=== PATIENT | male | born 1935 | race Caucasian/White ===

== ENCOUNTER 2018-07-03 02:07 | Observation (INO) | payer OTHER, MEDICARE ==
--- NOTE | 2018-07-03 03:12 | ED ---
General Adult HPI - General Chief complaint: Urogenital Stated complaint: UTI Time Seen by Provider: 07/03/18 02:20 Source: family, EMS Mode of arrival: EMS Limitations: altered mental status (There appears to be some underlying dementia or delirium.) - History of Present Illness Initial comments: This patient is an 82-year-old man transferred here from [facility]. The patient had been sent there from the halfway to check for urinary tract infection. The patient had been admitted to the hospital oxygen 10 days previously for urinary tract infection, treated and then sent home to continue course of oral medication. Over the past 24 hours he had been not acting his appropriate self. He has been somewhat confused and sleeping more. He was transferred to [facility] evaluated patient's family requested admitted to [facility]. When I interview the patient, he is not having any complaints. He does recognize that he is in the hospital, but cannot state the exact date. Onset/Timin -: days(s) Improves with: none Worsens with: none Associated Symptoms: denies other symptoms Treatments Prior to Arrival: other (Rocephin.) - Related Data Allergies Allergy/AdvReac Type Severity Reaction Status Date / Time ciprofloxacin Allergy Rash/Hives Verified 07/03/18 02:35 Penicillins Allergy Nausea & Verified 07/03/18 02:35 Vomiting Sulfa (Sulfonamide Allergy Rash/Hives Verified 07/03/18 02:35 Antibiotics) Review of Systems ROS Statement: Those systems with pertinent positive or pertinent negative responses have been documented in the HPI. ROS Other: All systems not noted in ROS Statement are negative. 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 Absent: respiratory distress, wheezes, rales, rhonchi, stridor Cardiovascular Exam: Present: regular rate, normal rhythm, normal heart sounds. Absent: systolic murmur, diastolic murmur, rubs, gallop GI/Abdominal exam: Present: soft. Absent: distended, tenderness, guarding, rebound Extremities exam: Present: normal inspection, normal capillary refill Back exam: Present: other (Contractures) Neurological exam: Present: alert, CN II-XII intact. Absent: oriented X3 ( Oriented to person and place.) Skin exam: Present: warm, dry, intact, normal color. Absent: rash Course Vital Signs 07/03/18 02:29 Temperature 97.3 F L Pulse Rate 89 Respiratory 16 Rate Blood Pressure 140/95 O2 Sat by Pulse 96 Oximetry Medical Decision Making - Medical Decision Making Patient is an 82-year-old man who does have indwelling Wilcox catheter for approximately 15 years since suffering neck injury with paraplegia. He reportedly has urinary tract infection not responding to outpatient treatment. He did receive dose of Rocephin at the transferring hospital, though this is listed on his list of ALLERGIES she has not had an apparent reaction. Patient is without complications here and will be admitted to continued IV therapy. Disposition Clinical Impression: Urinary tract infection Disposition: ADMITTED IP TO THIS HOSP Condition: Fair Referrals: Ernst Loo MD [Primary Care Provider] - 1-2 days
[2018-07-03] MEDS ORDERED: diphenhydrAMINE 50 MG/ML 1 ML VIAL IVP PRN (03:54)
[2018-07-03 04:05] LABS: Basophils % (A) 0 %; Eosinophils # (A) 0.1 k/uL (0-0.7); Eosinophils % (A) 2 %; HCT 40.7 % (39.0-53.0); HGB 13.4 gm/dL (13.0-17.5); Lymphocytes # (A) 1.2 k/uL (1.0-4.8); Lymphocytes % (A) 22 %; MCH 32.4 pg (25.0-35.0); MCHC 32.8 g/dL (31.0-37.0); MCV 98.8 fL (80.0-100.0); Macrocytosis Slight; Mean Platelet Volume 7.7; Monocytes # (A) 0.4 k/uL (0-1.0); Monocytes % (A) 8 %; Neutrophils # (A) 3.5 k/uL (1.3-7.7); Neutrophils % (A) 67 %; RBC 4.12 m/uL (4.30-5.90); RDW 15.4 % (11.5-15.5); WBC 5.3 k/uL (3.8-10.6)
[2018-07-03 04:28] LABS: Anion Gap 9 mmol/L; Blood Urea Nitrogen 20 mg/dL (9-20); Calcium 9.3 mg/dL (8.4-10.2); Carbon Dioxide 23 mmol/L (22-30); Chloride 103 mmol/L (98-107); Glucose 63 mg/dL (74-99); Potassium 4.1 mmol/L (3.5-5.1); Sodium 135 mmol/L (137-145)
[2018-07-03 04:37] LABS: Platelet Count 98 k/uL (150-450)
[2018-07-03] MEDS ORDERED: NALOXONE 0.4 MG/ML 1 ML VIAL IV PRN (04:49)
[2018-07-03] MEDS ORDERED: ONDANSETRON 4 MG/2 ML VIAL IVP PRN (04:49)
[2018-07-03] MEDS: SODIUM CHLORIDE 0.9% 1,000 ML IV SCH (05:25)
[2018-07-03 06:46] LABS: Appearance,Urine Cloudy (Clear); Bacteria,Urine Few /hpf; Bilirubin,Urine Negative (Negative); Blood,Urine Small (Negative); Color,Urine Yellow; Glucose,Urine (UA) Negative (Negative); Ketones,Urine 2+ (Negative); Leukocyte Esterase,Urine Large (Negative); Mucus,Urine Few /hpf; Nitrite,Urine Positive (Negative); Protein,Urine 1+ (Negative); RBC,Urine 6 /hpf (0-5); Specific Gravity,Urine 1.016 (1.001-1.035); Urobilinogen,Urine <2.0 mg/dL (<2.0)
[2018-07-03 07:09] VITALS: BMI 25.0
[2018-07-03] MEDS ORDERED: MAGNESIUM HYDROXIDE 2,400 MG/10 ML CUP PO PRN (12:00)
[2018-07-03] MEDS ORDERED: ARTIFICIAL TEARS-HYPROMELLOSE DROPS 15 ML BTL BOTH EYES PRN (12:00)
[2018-07-03] MEDS ORDERED: diphenhydrAMINE 25 MG CAP PO PRN (12:00)
[2018-07-03] MEDS ORDERED: NA PHOS,M-B/NA PHOS,DI-BA 133 ML ENEMA RECTAL PRN (12:00)
[2018-07-03] MEDS ORDERED: guaiFENesin SYRUP 100MG/5ML 200 MG/10 ML CUP PO PRN (12:00)
[2018-07-03] MEDS ORDERED: LOPERAMIDE 2 MG CAP PO PRN (12:00)
[2018-07-03] MEDS ORDERED: BISACODYL 10 MG SUPP RECTAL PRN (12:00)
[2018-07-03] MEDS ORDERED: ACETAMINOPHEN TAB 325 MG TAB PO PRN (12:00)
[2018-07-03] MEDS ORDERED: CALCIUM CARBONATE 500 MG CHEWABLE PO PRN (12:00)
--- NOTE | 2018-07-03 12:32 | P.HPIM ---
History of Present Illness This is a pleasant 82 years old male with past medical history of hypertension, history of polycystic kidney disease and kidney stone, spinal fusion, quadriplegia, indwelling catheter, peripheral neuropathy, nonfunctioning right kidney, and couple of DVT as per staff when they called and his been on warfarin he was transferred from [facility] for suspected urinary tract infection. Urine analysis was checked in the hospital today and showing large leukocyte esterase with WBC more than 182. Patient was already started on ceftriaxone. Urine culture has been sent and the result is still pending reapplied shows no leukocytosis and creatinine within normal limits. His suprapubic catheter has been change in the emergency room. Also patient has cough with some brownish phlegm little bit tachypneic and he has 4 head headache. However patient is alert awake oriented 3 with little confusion, he thought that he is still IN [facility] and he could not verify the date but he knows it is still June 2018 Review of Systems CONSTITUTIONAL: No fever, no malaise, no fatigue. HEENT: No recent visual problems or hearing problems. Denied any sore throat. CARDIOVASCULAR: No orthopnea, PND, no palpitations, no syncope. PULMONARY: No shortness of breath, no cough, no hemoptysis. GASTROINTESTINAL: No diarrhea, no nausea, no vomiting, no abdominal pain. Normoactive bowel sounds. NEUROLOGICAL: No headaches, no weakness, no numbness. HEMATOLOGICAL: Denies any bleeding or petechiae. GENITOURINARY: Denies any burning micturition, frequency, or urgency. MUSCULOSKELETAL/RHEUMATOLOGICAL: Denies any joint pain, swelling, or any muscle pain. ENDOCRINE: Denies any polyuria or polydipsia. 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 , functional use of right hand History of Any Multi-Drug Resistant Organisms: None Reported Past Surgical History: Orthopedic Surgery Additional Past Surgical History / Comment(s): placement of suprapubic catheter r/t accident 2002, has internal pump with baclofen in abdomen Past Anesthesia/Blood Transfusion Reactions: No Reported Reaction Past Psychological History: No Psychological Hx Reported Smoking Status: Never smoker Past Alcohol Use History: None Reported Past Drug Use History: None Reported - Past Family History Mother History Unknown: Yes Additional Family Medical History / Comment(s): Mother at age 20 of sepsis Medications and Allergies Home Medications Medication Instructions Recorded Confirmed Type Acetaminophen Tab [Tylenol Tab] 650 mg PO Q4H PRN 07/03/18 07/03/18 History Artificial Tears-Hypromellose 1 drops BOTH EYES TID PRN 07/03/18 07/03/18 History [Artificial Tear Drops] Bisacodyl [Dulcolax] 10 mg RECTAL DAILY PRN 07/03/18 07/03/18 History Calcium Carbonate [Tums] 1,000 mg PO QID PRN 07/03/18 07/03/18 History Cholecalciferol [Vitamin D3] 400 unit PO DAILY 07/03/18 07/03/18 History Cranberry 425mg 425 mg PO BID 07/03/18 07/03/18 History Cyanocobalamin (Vitamin B-12) 1,000 mcg PO DAILY 07/03/18 07/03/18 History [Vitamin B-12] Loperamide [Imodium] 2 mg PO QID PRN 07/03/18 07/03/18 History Loratadine [Claritin] 10 mg PO DAILY 07/03/18 07/03/18 History Magnesium Hydroxide [Milk of 2,400 mg PO DAILY PRN 07/03/18 07/03/18 History Magnesia] Metoprolol Tartrate [Lopressor] 25 mg PO BID 07/03/18 07/03/18 History Multivitamins, Thera [Multivitamin 1 tab PO DAILY 07/03/18 07/03/18 History (formulary)] Na Phos,M-B/Na Phos,Di-Ba [Fleet 133 ml RECTAL DAILY PRN 07/03/18 07/03/18 History Adult] Warfarin [Coumadin] 1 mg PO DAILY 07/03/18 07/03/18 History diphenhydrAMINE [Benadryl] 25 mg PO Q6H PRN 07/03/18 07/03/18 History guaiFENesin SYRUP 100MG/5ML 200 mg PO DIRECTED PRN 07/03/18 07/03/18 History [Robitussin] Allergies Allergy/AdvReac Type Severity Reaction Status Date / Time Cephalosporins AdvReac Unknown Verified 07/03/18 08:17 ciprofloxacin AdvReac Rash/Hives Verified 07/03/18 08:17 NSAIDS (Non-Steroidal AdvReac Unknown Verified 07/03/18 08:17 Anti-Inflamma Penicillins AdvReac Nausea & Verified 07/03/18 08:17 Vomiting Quinolones AdvReac Unknown Verified 07/03/18 08:17 Sulfa (Sulfonamide AdvReac Rash/Hives Verified 07/03/18 08:17 Antibiotics) Physical Exam Vitals: Vital Signs Temp Pulse Pulse Resp BP BP Pulse Ox 07/03/18 12:12 97.7 F 106 H 16 123/82 96 07/03/18 06:57 98 F 73 17 112/58 95 07/03/18 05:32 97.8 F 07/03/18 05:00 93 16 125/78 94 L 07/03/18 04:20 91 18 123/77 94 L 07/03/18 04:00 89 129/80 95 07/03/18 03:05 97.3 F L 98 16 115/76 95 07/03/18 03:00 90 140/86 100 07/03/18 02:29 97.3 F L 89 16 140/95 96 07/03/18 02:11 95 Intake and Output 07/02/18 07/03/18 07/03/18 22:59 06:59 14:59 Other: Voiding Method Indwelling Catheter Indwelling Catheter Weight 72.575 kg 72.57 kg GENERAL: The patient is alert and oriented x3, not in any acute distress. Well developed, well nourished. HEENT: Pupils are round and equally reacting to light. EOMI. No scleral icterus. No conjunctival pallor. Normocephalic, atraumatic. No pharyngeal erythema. No thyromegaly. CARDIOVASCULAR: S1 and S2 present. No murmurs, rubs, or gallops. PULMONARY: Chest is clear to auscultation, no wheezing or crackles. ABDOMEN: Soft, nontender, nondistended, normoactive bowel sounds. No palpable organomegaly. MUSCULOSKELETAL: No joint swelling or deformity. EXTREMITIES: No cyanosis, clubbing, or pedal edema. NEUROLOGICAL: Gross neurological examination did not reveal any focal deficits. SKIN: No rashes. Results CBC & Chem 7: 07/03/18 03:46 07/03/18 03:46 Labs: Abnormal Lab Results - Last 24 Hours (Table) 12/29/18 12/29/18 12/29/18 Range/Units 03:46 03:46 06:00 RBC 4.12 L (4.30-5.90) m/uL Plt Count 98 L (150-450) k/uL Sodium 135 L (137-145) mmol/L Glucose 63 L (74-99) mg/dL Urine Protein 1+ H (Negative) Urine Ketones 2+ H (Negative) Urine Blood Small H (Negative) Ur Leukocyte Esterase Large H (Negative) Urine RBC 6 H (0-5) /hpf Urine WBC >182 H (0-5) /hpf Urine WBC Clumps Many H (None) /hpf Urine Bacteria Few H (None) /hpf Urine Mucus Few H (None) /hpf Microbiology - Last 24 Hours (Table) 07/03/18 06:00 Urine Culture - Preliminary Urine,Voided Thrombosis Risk Factor Assmnt - Choose All That Apply Each Factor Represents 1 point: Medical pt on bed rest Each Risk Factor Represents 2 Points: Patient confined to bed Each Risk Factor Represents 3 Points: Age 75 years or older, History of DVT/PE Other congenital or acquired thrombophilia - If yes, enter type in comment: No Thrombosis Risk Factor Assessment Total Risk Factor Score: 9 Thrombosis Risk Factor Assessment Level: High Risk Assessment and Plan Assessment: Urinary tract infection, associated with Wilcox catheter present on admission History of Suprapubic catheter, for history of coronary retention Frontal headache, CT of the head is ordered Little dyspnea with coughing, we'll check with chest x-ray History of essential hypertension history of polycystic kidney disease and kidney stone, Quadriplegia History of peripheral neuropathy History of nonfunctioning right kidney History of at least couple of DVT as per staff when they called, patient is on warfarin on admission Plan: This is a pleasant 82 years old male, who presents with metabolic encephalopathy mostly secondary to UTI. Continue with antibiotics, follow-up culture results. Upper pubic catheter has been changed. CT of the head and chest x-ray ordered. Labs and medication were reviewed.. Continue same treatment. Continue with symptomatic treatment. Resume home medication. Monitor lytes and vitals. DVT and GI prophylaxis. Further recommendations of the clinical course of the patient DVT prophylaxis: Subcutaneous heparin GI Prophylaxis: Pepcid PT/OT: Pending Prognosis is guarded
[2018-07-03 12:43] LABS: INR 4.5 (<1.2); Prothrombin Time 43.4 sec (9.0-12.0)
--- NOTE | 2018-07-03 14:21 | XR ---
EXAMINATION TYPE: XR chest 1V DATE OF EXAM: 07/03/2018 COMPARISON: NONE HISTORY: Short of breath. Lesion. TECHNIQUE: Single frontal view of the chest is obtained. FINDINGS: There is for aspiration. There is no heart failure. Thoracic aorta is atheromatous. There is no pulmonary consolidation. Bony thorax appears intact. IMPRESSION: Subsegmental atelectasis at the lung bases. No heart failure or pulmonary consolidation.
--- NOTE | 2018-07-03 15:23 | CT ---
EXAMINATION TYPE: CT brain wo con DATE OF EXAM: 07/03/2018 COMPARISON: None HISTORY: headache CT DLP: 1112 mGycm Automated exposure control for dose reduction was used. FINDINGS: There is cerebral cortical atrophy. There is no mass effect nor midline shift. There is no sign of in tracranial hemorrhage. There is aneurysmal dilation of the intracranial internal carotid arteries joshua t measure up to 7 mm. The calvarium is intact. There is no evidence of cortical infarct. 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 NO ACUTE INTRACRANIAL ABNORMALITY. CEREBRAL ATRO PHY.
[2018-07-03] MEDS: IPRATROPIUM-ALBUTEROL 3 ML NEB INHALATION SCH ×3 (15:53→23:54)
[2018-07-03] MEDS ORDERED: WARFARIN 1 MG TAB PO SCH (18:00)
[2018-07-03] MEDS: METOPROLOL TARTRATE 25 MG TAB PO SCH (21:31)
[2018-07-04] MEDS: IPRATROPIUM-ALBUTEROL 3 ML NEB INHALATION SCH ×5 (04:01→20:24)
[2018-07-04] MEDS: SODIUM CHLORIDE 0.9% 1,000 ML IV SCH (04:10)
[2018-07-04] MEDS: CYANOCOBALAMIN 500 MCG TAB PO SCH (07:20)
[2018-07-04] MEDS: METOPROLOL TARTRATE 25 MG TAB PO SCH ×2 (07:20→21:42)
[2018-07-04] MEDS: CHOLECALCIFEROL 400 UNIT TAB PO SCH (07:21)
[2018-07-04] MEDS: LORATADINE 10 MG TAB PO SCH (07:21)
--- NOTE | 2018-07-04 07:50 | P.PN ---
Subjective This is a pleasant 82 years old male with past medical history of hypertension, history of polycystic kidney disease and kidney stone, spinal fusion, quadriplegia, indwelling catheter, peripheral neuropathy, nonfunctioning right kidney, and couple of DVT as per staff when they called and his been on warfarin he was transferred from [facility] for suspected urinary tract infection. Urine analysis was checked in the hospital today and showing large leukocyte esterase with WBC more than 182. Patient was already started on ceftriaxone. Urine culture has been sent and the result is still pending reapplied shows no leukocytosis and creatinine within normal limits. His suprapubic catheter has been change in the emergency room. Also patient has cough with some brownish phlegm little bit tachypneic and he has 4 head headache. However patient is alert awake oriented 3 with little confusion, he thought that he is still IN [facility] and he could not verify the date but he knows it is still June 2018 07/04/2018 Patient remains a little bit confused, but he is, agitated. No chest pain or dyspnea or abdominal pain. Tolerating diet well. There was suspicion of some penile discharge however during my examination of the area looks it dries with no discharge from the penis. The suprapubic of his looks intact and Wilcox is in place. Vitas looks stable with no more fever. INR was high yesterday or 0.5 , today left still pending. Coumadin is on hold. Urine culture is pending Objective - Vital Signs Vital signs: Vital Signs Temp 98.2 F 07/04/18 07:18 Pulse 105 H 07/04/18 07:18 Resp 16 07/04/18 07:18 BP 150/93 07/04/18 07:18 Pulse Ox 97 07/04/18 07:18 Intake & Output 07/03/18 07/04/18 07/04/18 18:59 06:59 18:59 Intake Total 920 490 Output Total 480 950 Balance 440 -460 Weight 72.57 kg Intake: Intake, IV Titration 240 250 Amount Sodium Chloride 0.9% 1, 240 200 000 ml @ 20 mls/hr IV . Q24H MERRY Rx#:[id number] cefTRIAXone 1,000 mg In 50 Sodium Chloride 0.9% 50 ml @ 100 mls/hr IVPB Q24H MERRY Rx#:[id number] Oral 680 240 Output: Urine 480 950 Other: Voiding Method Indwelling Catheter Indwelling Catheter # Voids 1 - Exam GENERAL: The patient is alert and oriented x1-2, not in any acute distress. Well developed, well nourished. HEENT: Pupils are round and equally reacting to light. EOMI. No scleral icterus. No conjunctival pallor. Normocephalic, atraumatic. No pharyngeal erythema. No thyromegaly. CARDIOVASCULAR: S1 and S2 present. No murmurs, rubs, or gallops. PULMONARY: Chest is clear to auscultation, no wheezing or crackles. -ABDOMEN: Soft, nontender, nondistended, normoactive bowel sounds. No palpable organomegaly. Suprapubic catheter is in place, orifice is intact with no surrounding cellulitis. A and penile exam is unremarkable, no purulent discharge MUSCULOSKELETAL: No joint swelling or deformity. EXTREMITIES: No cyanosis, clubbing, or pedal edema. NEUROLOGICAL: Gross neurological examination did not reveal any focal deficits. SKIN: No rashes. - Labs CBC & Chem 7: 07/03/18 03:46 07/03/18 03:46 Labs: Abnormal Lab Results - Last 24 Hours (Table) 07/03/18 Range/Units 12:10 PT 43.4 H (9.0-12.0) sec INR 4.5 H (<1.2) Microbiology - Last 24 Hours (Table) 07/03/18 06:00 Urine Culture - Preliminary Urine,Voided Assessment and Plan Assessment: Urinary tract infection, associated with Wilcox catheter present on admission History of Suprapubic catheter, for history of coronary retention Frontal headache, CT of the head is ordered Little dyspnea with coughing, we'll check with chest x-ray History of essential hypertension history of polycystic kidney disease and kidney stone, Quadriplegia History of peripheral neuropathy History of nonfunctioning right kidney History of at least couple of DVT as per staff when they called, patient is on warfarin on admission Plan: This is a pleasant 82 years old male, who presents with metabolic encephalopathy mostly secondary to UTI. Continue with antibiotics, follow-up culture results. Upper pubic catheter has been changed. CT of the head and chest x-ray ordered. Labs and medication were reviewed.. Continue same treatment. Continue with symptomatic treatment. Resume home medication. Monitor lytes and vitals. DVT and GI prophylaxis. Further recommendations of the clinical course of the patient DVT prophylaxis: Subcutaneous heparin GI Prophylaxis: Pepcid PT/OT: Pending Prognosis is guarded
[2018-07-04 08:21] LABS: INR 3.1 (<1.2); Prothrombin Time 29.7 sec (9.0-12.0)
[2018-07-04 08:30] LABS: Basophils % (A) 0 %; Eosinophils % (A) 1 %; HCT 37.7 % (39.0-53.0); HGB 12.2 gm/dL (13.0-17.5); Lymphocytes # (A) 1.2 k/uL (1.0-4.8); Lymphocytes % (A) 25 %; MCH 31.9 pg (25.0-35.0); MCHC 32.3 g/dL (31.0-37.0); MCV 98.9 fL (80.0-100.0); Macrocytosis Slight; Mean Platelet Volume 7.4; Monocytes # (A) 0.4 k/uL (0-1.0); Monocytes % (A) 8 %; Neutrophils # (A) 3.3 k/uL (1.3-7.7); Neutrophils % (A) 65 %; Platelet Count 122 k/uL (150-450); RBC 3.81 m/uL (4.30-5.90); RDW 15.4 % (11.5-15.5)
[2018-07-04 09:23] LABS: Anion Gap 7 mmol/L; Blood Urea Nitrogen 19 mg/dL (9-20); Calcium 9.2 mg/dL (8.4-10.2); Carbon Dioxide 27 mmol/L (22-30); Chloride 104 mmol/L (98-107); Glucose 82 mg/dL (74-99); Potassium 4.1 mmol/L (3.5-5.1); Sodium 138 mmol/L (137-145)
--- NOTE | 2018-07-04 10:15 | US ---
EXAMINATION TYPE: US carotid duplex BILAT DATE OF EXAM: 07/04/2018 COMPARISON: CT CLINICAL HISTORY: aneurysm in ct of head . Aneurysm seen on CT Pt with very short neck and continuous swallowing during exam, limited views EXAM MEASUREMENTS: RIGHT: Peak Systolic Velocity (PSV) cm/sec ----- Right CCA: 107.0 ----- Right ICA: 63.2 ----- Right ECA: 113.5 ICA/CCA ratio: 0.6 RIGHT: End Diastole cm/sec ----- Right CCA: 21.5 ----- Right ICA: 21.8 ----- Right ECA: 25.4 LEFT: Peak Systolic Velocity (PSV) cm/sec ----- Left CCA: 87.1 ----- Left ICA: 74.5 ----- Left ECA: 94.3 ICA/CCA ratio: 0.9 LEFT: End Diastole cm/sec ----- Left CCA: 28.2 ----- Left ICA: 17.2 ----- Left ECA: 16.1 VERTEBRALS (direction of flow): Right Vertebral: Unable to visualize Left Vertebral: Unable to visualize Rhythm: Normal No significant stenosis seen, unable to visualize aneurysm as seen on CT IMPRESSION: No hemodynamically significant stenosis identified. Criteria for Assigning % of Stenosis / Diameter reduction (Estimation based on the indirect measurements of the internal carotid artery velocities (ICA PSV). 1. Normal (no stenosis)=ICA PSV < 125 cm/s: ratio < 2.0: ICA EDV<40 cm/s. 2. Less than 50% stenosis=ICA PSV < 125 cm/s: ratio < 2.0: ICA EDV<40 cm/s. 3. 50 to 69% stenosis=ICA PSV of 125 to 230 cm/s: ration 2.0 ? 4.0: ICA EDV 40-100 cm/s. 4. Greater than 70% stenosis to near occlusion= ICA PSV > 230 cm/s: ratio > 4.0: ICA EDV > 100 cm/s. 5. Near occlusion= ICA PSV velocities may be low or undetectable: variable ratio and ICA EDV. 6. Total occlusion=unable to detect flow.
[2018-07-04] MEDS: MULTIVITAMINS, THERA 1 EACH TAB PO SCH (12:07)
[2018-07-05] MEDS: IPRATROPIUM-ALBUTEROL 3 ML NEB INHALATION SCH ×5 (01:22→16:36)
[2018-07-05] MEDS: SODIUM CHLORIDE 0.9% 1,000 ML IV SCH (04:29)
[2018-07-05 07:38] LABS: INR 1.9 (<1.2); Prothrombin Time 18.4 sec (9.0-12.0)
[2018-07-05] MEDS: CYANOCOBALAMIN 500 MCG TAB PO SCH (07:49)
[2018-07-05] MEDS: CHOLECALCIFEROL 400 UNIT TAB PO SCH (07:50)
[2018-07-05] MEDS: LORATADINE 10 MG TAB PO SCH (07:50)
[2018-07-05] MEDS: METOPROLOL TARTRATE 25 MG TAB PO SCH (07:51)
[2018-07-05 12:25] VITALS: BP 145/73; PULSE 92; RESP 16; TEMP 97.3
[2018-07-05] MEDS: MULTIVITAMINS, THERA 1 EACH TAB PO SCH (12:28)
--- NOTE | 2018-07-12 22:41 | P.DS ---
Providers Date of admission: 07/03/18 04:49 Expected date of discharge: 07/05/18 Attending physician: Frank Roblero Primary care physician: Ernst [facility] Course: Discharge diagnosis Urinary tract infection, associated with Wilcox catheter present on admission. Urine culture is still pending. Clinically improved. History of Suprapubic catheter, for history of urinary retention Frontal headache, CT of the head was done. Negative for any acute process. dyspnea with coughing, chest x-ray showed subsegmental atelectasis. History of essential hypertension history of polycystic kidney disease and kidney stone, Quadriplegia History of peripheral neuropathy History of nonfunctioning right kidney History of at least couple of DVT as per staff when they called, patient is on warfarin on admission Hospital course This is a pleasant 82 years old male with past medical history of hypertension, history of polycystic kidney disease and kidney stone, spinal fusion, quadriplegia, indwelling catheter, peripheral neuropathy, nonfunctioning right kidney, and couple of DVT as per staff when they called and his been on warfarin he was transferred from [facility] for suspected urinary tract infection. Urine analysis was checked in the hospital today and showing large leukocyte esterase with WBC more than 182. Patient was already started on ceftriaxone. Urine culture has been sent and the result is still pending reapplied shows no leukocytosis and creatinine within normal limits. His suprapubic catheter has been change in the emergency room. Also patient has cough with some brownish phlegm little bit tachypneic and he has 4 head headache. However patient is alert awake oriented 3 with little confusion, he thought that he is still IN [facility] and he could not verify the date but he knows it is still June 2018 07/04/2018 Patient remains a little bit confused, but he is, agitated. No chest pain or dyspnea or abdominal pain. Tolerating diet well. There was suspicion of some penile discharge however during my examination of the area looks it dries with no discharge from the penis. The suprapubic of his looks intact and Wilcox is in place. Vitas looks stable with no more fever. INR was high yesterday or 0.5 , today left still pending. Coumadin is on hold. Urine culture is pending 07/05/2018 Patient says that he is feeling much better now. Denied any complaints of abdominal pain. No nausea vomiting or diarrhea. Patient does have suprapubic catheter. Urine culture is pending at this time. No fever no chills. Patient was advised to stay in the hospital until final urine culture report. Patient still wants to be discharged home today. Patient was advised to follow with primary care physician for final urine culture report and further antibiotic titration. Recommended to follow-up with urology clinic for suprapubic catheter exchange. Patient is ALLERGIC to multiple antibiotics. Patient will be discharged home on Ceftin at this time, to be followed with primary care physician and follow-up final culture reports with PCP. Patient verbalized understanding of further plans regarding antibiotics. Physical examination GENERAL: The patient is alert and oriented x1-2, not in any acute distress. Well developed, well nourished. HEENT: Pupils are round and equally reacting to light. EOMI. No scleral icterus. No conjunctival pallor. Normocephalic, atraumatic. No pharyngeal erythema. No thyromegaly. CARDIOVASCULAR: S1 and S2 present. No murmurs, rubs, or gallops. PULMONARY: Chest is clear to auscultation, no wheezing or crackles. -ABDOMEN: Soft, nontender, nondistended, normoactive bowel sounds. No palpable organomegaly. Suprapubic catheter is in place, orifice is intact with no surrounding cellulitis. A and penile exam is unremarkable, no purulent discharge MUSCULOSKELETAL: No joint swelling or deformity. EXTREMITIES: No cyanosis, clubbing, or pedal edema. NEUROLOGICAL: Gross neurological examination did not reveal any focal deficits. SKIN: No rashes. Discharge vitals reviewed. Total time taken greater than 35 minutes including 18 minutes for counseling and coordination of care. Patient Condition at Discharge: Fair Plan - Discharge Summary Discharge Rx Participant: No New Discharge Prescriptions: New Cefuroxime Axetil [Ceftin] 500 mg PO BID 7 Days #14 tab Continue Acetaminophen Tab [Tylenol] 650 mg PO Q4H PRN PRN Reason: Pain Or Fever > 100.5 guaiFENesin SYRUP 100MG/5ML [Robitussin] 200 mg PO DIRECTED PRN PRN Reason: Cough Loperamide [Imodium] 2 mg PO QID PRN PRN Reason: Loose Stool diphenhydrAMINE [Benadryl] 25 mg PO Q6H PRN PRN Reason: Itching Na Phos,M-B/Na Phos,Di-Ba [Fleet Adult] 133 ml RECTAL DAILY PRN PRN Reason: Constipation Calcium Carbonate [Tums] 1,000 mg PO QID PRN PRN Reason: Heartburn Bisacodyl [Dulcolax] 10 mg RECTAL DAILY PRN PRN Reason: Constipation Warfarin [Coumadin] 1 mg PO DAILY Cyanocobalamin (Vitamin B-12) [Vitamin B-12] 1,000 mcg PO DAILY Cholecalciferol [Vitamin D3] 400 unit PO DAILY Multivitamins, Thera [Multivitamin (formulary)] 1 tab PO DAILY Metoprolol Tartrate [Lopressor] 12.5 mg PO BID Loratadine [Claritin] 10 mg PO DAILY Magnesium Hydroxide [Milk of Magnesia] 2,400 mg PO DAILY PRN PRN Reason: Constipation Cranberry 425mg 425 mg PO BID Discharge Medication List Acetaminophen Tab [Tylenol] 650 mg PO Q4H PRN 07/03/18 [History] Bisacodyl [Dulcolax] 10 mg RECTAL DAILY PRN 07/03/18 [History] Calcium Carbonate [Tums] 1,000 mg PO QID PRN 07/03/18 [History] Cholecalciferol [Vitamin D3] 400 unit PO DAILY 07/03/18 [History] Cranberry 425mg 425 mg PO BID 07/03/18 [History] Cyanocobalamin (Vitamin B-12) [Vitamin B-12] 1,000 mcg PO DAILY 07/03/18 [ History] Loperamide [Imodium] 2 mg PO QID PRN 07/03/18 [History] Loratadine [Claritin] 10 mg PO DAILY 07/03/18 [History] Magnesium Hydroxide [Milk of Magnesia] 2,400 mg PO DAILY PRN 07/03/18 [History] Metoprolol Tartrate [Lopressor] 12.5 mg PO BID 07/03/18 [History] Multivitamins, Thera [Multivitamin (formulary)] 1 tab PO DAILY 07/03/18 [History ] Na Phos,M-B/Na Phos,Di-Ba [Fleet Adult] 133 ml RECTAL DAILY PRN 07/03/18 [ History] Warfarin [Coumadin] 1 mg PO DAILY 07/03/18 [History] diphenhydrAMINE [Benadryl] 25 mg PO Q6H PRN 07/03/18 [History] guaiFENesin SYRUP 100MG/5ML [Robitussin] 200 mg PO DIRECTED PRN 07/03/18 [ History] Cefuroxime Axetil [Ceftin] 500 mg PO BID 7 Days #14 tab 07/05/18 [Rx] Follow up Appointment(s)/Referral(s): Ernst Loo MD [Primary Care Provider] - 3 Days (PLEASE CALL FOR APPOINTMENT, OFFICE CURRENTLY CLOSED.) Patient Instructions/Handouts: Urinary Tract Infection in Men (DC), How to Care for Your Suprapubic Catheter (DC) Activity/Diet/Wound Care/Special Instructions: [facility] - [address] [place] Diet: dysphagia Level 2 Discharge Disposition: TRANSFER TO SNF/ECF
== END 2018-07-05 17:26 ==
LOC: EEVIPCON 02:07 → EC 02:07 → 3NMEDONC 04:49
PROVIDERS: ADMIT Internal Medicine; ATTEND Internal Medicine
DX: N39.0 Urinary tract infection, site not specified (principal); R51 Headache; J98.11 Atelectasis; R06.82 Tachypnea, not elsewhere classified; T83.511A Infection and inflammatory reaction due to indwelling urethral catheter, initial encounter; I10 Essential (primary) hypertension; Z87.442 Personal history of urinary calculi; Q61.3 Polycystic kidney, unspecified; G82.50 Quadriplegia, unspecified; G62.9 Polyneuropathy, unspecified; N28.9 Disorder of kidney and ureter, unspecified; Z88.2 Allergy status to sulfonamides; Z88.0 Allergy status to penicillin; Z88.1 Allergy status to other antibiotic agents; Z86.718 Personal history of other venous thrombosis and embolism; Z98.1 Arthrodesis status; Z79.01 Long term (current) use of anticoagulants; Z79.899 Other long term (current) drug therapy; Z88.8 Allergy status to other drugs, medicaments and biological substances; Z74.01 Bed confinement status; G93.41 Metabolic encephalopathy
CPT/HCPCS: 96365; 99285; 36415; 94640 ×6; 80048 ×2; 85025 ×2; 85610 ×3; 81001; 87086; 87077; 87186; 71045; 93880; 70450; G0378 ×3; J0696 ×3

== ENCOUNTER 2018-07-08 13:28 | Inpatient (IN) | payer MEDICARE ==
[2018-07-08] MEDS ORDERED: LEVOFLOXACIN 750MG-D5W PMX 750 MG in DEXTROSE/WATER 1 150ML.BAG IVPB STA (13:52)
--- NOTE | 2018-07-08 13:56 | ED ---
General Adult HPI - General Chief complaint: Recheck/Abnormal Lab/Rx Stated complaint: Poss uti Source: EMS Mode of arrival: EMS Limitations: no limitations - Related Data Home Medications Medication Instructions Recorded Confirmed Acetaminophen Tab [Tylenol] 650 mg PO Q4H PRN 07/03/18 07/08/18 Bisacodyl [Dulcolax] 10 mg RECTAL DAILY PRN 07/03/18 07/08/18 Calcium Carbonate [Tums] 1,000 mg PO QID PRN 07/03/18 07/08/18 Cholecalciferol [Vitamin D3] 400 unit PO DAILY 07/03/18 07/08/18 Cranberry 425mg 425 mg PO BID 07/03/18 07/08/18 Cyanocobalamin (Vitamin B-12) 1,000 mcg PO DAILY 07/03/18 07/08/18 [Vitamin B-12] Loperamide [Imodium] 2 mg PO QID PRN 07/03/18 07/08/18 Loratadine [Claritin] 10 mg PO DAILY 07/03/18 07/08/18 Magnesium Hydroxide [Milk of 2,400 mg PO DAILY PRN 07/03/18 07/08/18 Magnesia] Metoprolol Tartrate [Lopressor] 12.5 mg PO BID 07/03/18 07/08/18 Multivitamins, Thera [Multivitamin 1 tab PO DAILY 07/03/18 07/08/18 (formulary)] Na Phos,M-B/Na Phos,Di-Ba [Fleet 133 ml RECTAL DAILY PRN 07/03/18 07/08/18 Adult] Warfarin [Coumadin] 1 mg PO DAILY 07/03/18 07/08/18 diphenhydrAMINE [Benadryl] 25 mg PO Q6H PRN 07/03/18 07/08/18 guaiFENesin SYRUP 100MG/5ML 200 mg PO DIRECTED PRN 07/03/18 07/08/18 [Robitussin] Previous Rx's Medication Instructions Recorded Cefuroxime Axetil [Ceftin] 500 mg PO BID 7 Days #14 tab 07/05/18 Allergies Allergy/AdvReac Type Severity Reaction Status Date / Time Cephalosporins AdvReac Unknown Verified 07/08/18 14:30 ciprofloxacin AdvReac Rash/Hives Verified 07/08/18 14:30 NSAIDS (Non-Steroidal AdvReac Unknown Verified 07/08/18 14:30 Anti-Inflamma Penicillins AdvReac Nausea & Verified 07/08/18 14:30 Vomiting Quinolones AdvReac Unknown Verified 07/08/18 14:30 Sulfa (Sulfonamide AdvReac Rash/Hives Verified 07/08/18 14:30 Antibiotics) Review of Systems ROS Statement: Those systems with pertinent positive or pertinent negative responses have been documented in the HPI. ROS Other: All systems not noted in ROS Statement are negative. 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 Date of last positivie culture/infection: 07/03/18 MDRO Source:: URINE Past Surgical History: Orthopedic Surgery Additional Past Surgical History / Comment(s): placement of suprapubic catheter r/t accident 2002, has internal pump with baclofen in abdomen Past Anesthesia/Blood Transfusion Reactions: No Reported Reaction Past Psychological History: No Psychological Hx Reported Smoking Status: Never smoker Past Alcohol Use History: None Reported Past Drug Use History: None Reported - Past Family History Mother History Unknown: Yes Additional Family Medical History / Comment(s): Mother at age 20 of sepsis General Exam Limitations: no limitations Course Vital Signs 07/08/18 07/08/18 13:38 15:39 Pulse Rate 61 60 Respiratory 16 16 Rate Blood Pressure 144/90 110/78 O2 Sat by Pulse 99 96 Oximetry Medical Decision Making - Medical Decision Making Dictation was produced using [employer] dictation software. please excuse any grammatical, word or spelling errors. Chief Complaint: 82-year-old male with past medical history of paraplegia secondary to spinal cord injury presents with chief complaint cloudy urine and mental status changes. History of Present Illness: Patient is 82-year-old male transferred from assisted living facility for cloudy urine and mental status changes. Patient was just discharged 3 days ago for the same complaint. Patient has a chronic indwelling suprapubic catheter. He had this suprapubic catheter placed approximately 15 years ago. Patient is a poor historian at this time. EMS reports that he was sent here for cloudy urine possible UTI. Chart review shows that patient was admitted to the hospital 5 days ago for UTI and mental status changes. Cardiac chart review patient has had in uneventful hospital course discharge. Patient has no complaints at this time. The ROS documented in this emergency department record has been reviewed and confirmed by me. Those systems with pertinent positive or negative responses have been documented in the HPI. All other systems are other negative and/or noncontributory. PHYSICAL EXAM: General Impression: Alert and oriented x3, not in acute distress HEENT: Normocephalic atraumatic, extra-ocular movements intact, pupils equal and reactive to light bilaterally, mucous membranes moist. Cardiovascular: Heart regular rate and rhythm, S1&S2 audible, no murmurs, rubs or gallops Chest: Lungs clear to auscultation bilaterally, no rhonchi, no wheeze, no rales Abdomen: Bowel sounds present, abdomen soft, non-tender, non-distended, no organomegaly Musculoskeletal: Pulses present and equal in all extremities, no peripheral edema Motor: Paralysis of all extremities Neurological: CN II-XII grossly intact Skin: Intact with no visualized rashes Psych: Normal affect and mood ED course: 82-year-old male presents with concerns of UTI and mental status changes. As upon arrival are within acceptable limits. Wilcox reservoir shows no cloudy characteristics of the urine. Chart review shows that patient was discharged with cefuroxime. Microbiology was reviewed. Patient has 3 infections in his urine. It appears that he has ESBL, E. coli and pseudomonas aeruginosa based on his most recent culture. There are limited medications to choose from. Flow quinolones are listed as one of his ALLERGIES when he said several years ago he had a reaction to it which was a rash. This point given that there are limited medications to use to cover all 3 bacterial organisms. We will give a dose of Levaquin. We will have patient admitted with infectious disease consultation. Patient be admitted. EKG interpretation: Ventricular rate 57 and a sinus bradycardia, MD interval 222 , care is 84, QTC 424. No MD prolongation, no QTC prolongation, no ST or T-wave changes noted. Overall, this EKG is unremarkable - Lab Data Result diagrams: 07/08/18 14:20 07/08/18 14:20 Lab Results 07/08/18 07/08/18 07/08/18 Range/Units 14:20 14:20 14:20 WBC 4.4 (3.8-10.6) k/uL RBC 3.96 L (4.30-5.90) m/uL Hgb 13.1 (13.0-17.5) gm/dL Hct 38.8 L (39.0-53.0) % MCV 98.1 (80.0-100.0) fL MCH 33.0 (25.0-35.0) pg MCHC 33.6 (31.0-37.0) g/dL RDW 15.3 (11.5-15.5) % Plt Count 105 L (150-450) k/uL Neutrophils % 71 % Lymphocytes % 15 % Monocytes % 7 % Eosinophils % 2 % Basophils % 0 % Neutrophils # 3.1 (1.3-7.7) k/uL Lymphocytes # 0.7 L (1.0-4.8) k/uL Monocytes # 0.3 (0-1.0) k/uL Eosinophils # 0.1 (0-0.7) k/uL Basophils # 0.0 (0-0.2) k/uL Macrocytosis Slight Sodium 127 L (137-145) mmol/L Potassium 5.4 H (3.5-5.1) mmol/L Chloride 96 L (98-107) mmol/L Carbon Dioxide 22 (22-30) mmol/L Anion Gap 9 mmol/L BUN 22 H (9-20) mg/dL Creatinine 0.61 L (0.66-1.25) mg/dL Est GFR (CKD-EPI)AfAm >90 (>60 ml/min/1.73 sqM) Est GFR (CKD-EPI)NonAf >90 (>60 ml/min/1.73 sqM) Glucose 79 (74-99) mg/dL Calcium 8.8 (8.4-10.2) mg/dL Urine Color Yellow Urine Appearance Cloudy (Clear) Urine pH 6.5 (5.0-8.0) Ur Specific [place] 1.006 (1.001-1.035) Urine Protein Negative (Negative) Urine Glucose (UA) Negative (Negative) Urine Ketones Negative (Negative) Urine Blood Negative (Negative) Urine Nitrite Positive (Negative) Urine Bilirubin Negative (Negative) Urine Urobilinogen <2.0 (<2.0) mg/dL Ur Leukocyte Esterase Large H (Negative) Urine RBC 1 (0-5) /hpf Urine WBC 31 H (0-5) /hpf Ur Squamous Epith Cells <1 (0-4) /hpf Urine Bacteria Rare H (None) /hpf Urine Mucus Rare H (None) /hpf Disposition Clinical Impression: Urinary tract infection Disposition: ADMITTED IP TO THIS HOSP Condition: Fair Referrals: Ernst Loo MD [Primary Care Provider] - 1-2 days Decision Time: 16:10
[2018-07-08 14:41] LABS: Basophils % (A) 0 %; Eosinophils # (A) 0.1 k/uL (0-0.7); Eosinophils % (A) 2 %; HCT 38.8 % (39.0-53.0); HGB 13.1 gm/dL (13.0-17.5); Lymphocytes # (A) 0.7 k/uL (1.0-4.8); Lymphocytes % (A) 15 %; MCHC 33.6 g/dL (31.0-37.0); MCV 98.1 fL (80.0-100.0); Macrocytosis Slight; Mean Platelet Volume 7.5; Monocytes # (A) 0.3 k/uL (0-1.0); Monocytes % (A) 7 %; Neutrophils # (A) 3.1 k/uL (1.3-7.7); Neutrophils % (A) 71 %; Platelet Count 105 k/uL (150-450); RBC 3.96 m/uL (4.30-5.90); RDW 15.3 % (11.5-15.5); WBC 4.4 k/uL (3.8-10.6)
[2018-07-08 14:51] LABS: Appearance,Urine Cloudy (Clear); Bacteria,Urine Rare /hpf; Bilirubin,Urine Negative (Negative); Blood,Urine Negative (Negative); Color,Urine Yellow; Glucose,Urine (UA) Negative (Negative); Ketones,Urine Negative (Negative); Leukocyte Esterase,Urine Large (Negative); Mucus,Urine Rare /hpf; Nitrite,Urine Positive (Negative); PH, Urine 6.5 (5.0-8.0); Protein,Urine Negative (Negative); RBC,Urine 1 /hpf (0-5); Specific Gravity,Urine 1.006 (1.001-1.035); Squamous Epithelial Cell,Urine <1 /hpf (0-4); Urobilinogen,Urine <2.0 mg/dL (<2.0); WBC,Urine 31 /hpf (0-5)
[2018-07-08 14:54] LABS: Anion Gap 9 mmol/L; Blood Urea Nitrogen 22 mg/dL (9-20); Calcium 8.8 mg/dL (8.4-10.2); Carbon Dioxide 22 mmol/L (22-30); Chloride 96 mmol/L (98-107); Glucose 79 mg/dL (74-99); Potassium 5.4 mmol/L (3.5-5.1); Sodium 127 mmol/L (137-145)
--- NOTE | 2018-07-08 15:23 | XR ---
EXAMINATION TYPE: XR chest 2V DATE OF EXAM: 07/08/2018 COMPARISON: 07/03/2018 HISTORY: Chest pain and syncope TECHNIQUE: Frontal and lateral views of the chest are obtained. FINDINGS: There are low lung volumes and persistent left basilar subsegmental atelectasis. Generaliz ed osseous demineralization is present. Prominence of the superior vena cava is similar to the prior and partially due to rotation. Biapical pleural thickening is noted, right greater than left. Exagger ated thoracic kyphosis renders evaluation of the upper and mid thoracic spine difficult, however comp ression deformity is suspected. IMPRESSION: 1. Persistent left basilar atelectasis and overall low lung volumes. 2. Suspected left mid thoracic compression deformity resulting in acute kyphosis and generalized osse ous demineralization.
[2018-07-08] MEDS ORDERED: SODIUM CHLORIDE 0.9% 1,000 ML IV STA (15:36)
[2018-07-08] MEDS ORDERED: NALOXONE 0.4 MG/ML 1 ML VIAL IV PRN (16:08)
[2018-07-08] MEDS ORDERED: diphenhydrAMINE 50 MG/ML 1 ML VIAL IVP PRN (16:49)
[2018-07-08 17:03] LABS: INR 2.3 (<1.2)
[2018-07-08] MEDS ORDERED: WARFARIN 1 MG TAB PO SCH (18:00)
[2018-07-08] MEDS ORDERED: BISACODYL 10 MG SUPP RECTAL PRN (18:08)
[2018-07-08] MEDS ORDERED: CALCIUM CARBONATE 500 MG CHEWABLE PO PRN (18:08)
[2018-07-08] MEDS ORDERED: MAGNESIUM HYDROXIDE 2,400 MG/10 ML CUP PO PRN (18:08)
[2018-07-08] MEDS ORDERED: guaiFENesin SYRUP 100MG/5ML 200 MG/10 ML CUP PO PRN (18:08)
[2018-07-08] MEDS ORDERED: ACETAMINOPHEN TAB 325 MG TAB PO PRN (18:08)
[2018-07-08] MEDS: MEROPENEM 1 GM in SODIUM CHLORIDE 0.9% 100 ML IVPB SCH (20:41)
[2018-07-08] MEDS: METOPROLOL TARTRATE 12.5 MG TAB PO SCH (20:41)
[2018-07-08] MEDS ORDERED: CRANBERRY 425 MG PO SCH (21:00)
[2018-07-08] MEDS ORDERED: LOPERAMIDE 2 MG CAP PO PRN (21:41)
[2018-07-08] MEDS ORDERED: NA PHOS,M-B/NA PHOS,DI-BA 133 ML ENEMA RECTAL PRN (21:41)
--- NOTE | 2018-07-08 22:49 | HP ---
HISTORY AND PHYSICAL DATE OF SERVICE: 07/08/2018 CHIEF COMPLAINTS: Change in mental status and UTI. HISTORY OF PRESENT ILLNESS: This 82-year-old gentleman with past medical history of multiple medical problems, being followed by Dr. Loo in the outpatient setting, was recently admitted with features of UTI. The patient also had a suprapubic catheter. The patient also had multiple other medical problems, including quadriplegia secondary to a fall and cervical spine injury, history of hypertension, history of ESBL, history of DJD, and the patient also had polycystic kidney disease history. The patient also had peripheral neuropathy. The patient was sent on antibiotics; however, the patient and family noted that the patient had change in mental status. Patient used to have some use of the left forearm, which was noted also. The patient also had diminished responsiveness compared to his baseline. The patient was taking ciprofloxacin and the culture report showed Pseudomonas aeruginosa, E coli and ESBL E coli as well. There was some leaking around the suprapubic catheter site also noted, which is also being evaluated by Urology at this time. The patient is unable to give any coherent history. Most of the history is taken from my discussion with staff and discussion in the ER as well as review of the chart at this time and discussion with the family at the bedside. PAST MEDICAL HISTORY: 1. History of hypertension. 2. History of quadriplegia. 3. History of recent UTI. HOME MEDICATIONS: 1. Coumadin 1 mg p.o. daily. 2. Magnesium hydroxide 2.4 daily. 3. Vitamin B12 1000 mcg b.i.d. 4. Vitamin D3 400 daily. 5. Tylenol 650 q.4 p.r.n. 6. Guaifenesin 200 mg p.r.n. 7. Benadryl 25 mg q.6 p.r.n. 8. Fleet daily p.r.n. 9. Imodium 2 mg q.i.d. p.r.n. 10.Tums 1000 mg q.i.d. p.r.n. 11.Multivitamins 1 p.o. daily. 12.Dulcolax 10 mg rectally daily p.r.n. 13.Lopressor 12.5 mg p.o. b.i.d. 14.Claritin 10 mg p.o. daily. 15.Cranberry 425 mg p.o. b.i.d. 16.Ceftin 500 mg p.o. b.i.d. ALLERGIES: 1. ADHESIVE. 2. CEPHALOSPORIN. 3. CIPROFLOXACIN. 4. NSAIDS. 5. PENICILLIN. 6. QUINOLONES. 7. SULFA. FAMILY HISTORY: History of sepsis in the family. SOCIAL HISTORY: No history of smoking. No history of alcohol. REVIEW OF SYSTEMS: Could not be taken because of the patient's baseline mental status. PHYSICAL EXAMINATION: Pulse is 67, blood pressure 120/70, respiration 16, temperature 94.5, pulse ox 100% on room air. HEENT: Conjunctivae normal. Oral mucosa moist. NECK: No jugular venous distention. No carotid bruit. No lymph node enlargement. CARDIOVASCULAR SYSTEM: S1, S2 muffled. RESPIRATORY SYSTEM: Breath sounds diminished at the bases. A few scattered rhonchi and crackles. ABDOMEN: Soft, non-tender. No mass palpable. LEGS: No edema. No swelling. NERVOUS SYSTEM: Higher functions as mentioned earlier. Could not be tested. Extensively significant contractures and quadriplegia present. SKIN: No ulcer, rash, bleeding. LYMPHATICS: No lymph node palpable in neck, axillae or groin. JOINTS: No active deforming arthropathy. LABS: INR 2.3, WBC 4.4, hemoglobin 13.1. Sodium 127, potassium 5.4. UA noted. ASSESSMENT: 1. Urinary tract infection with sepsis secondary to Pseudomonas aeruginosa, Escherichia coli and extended-spectrum beta-lactamase Escherichia coli. 2. Hypothermia secondary to sepsis. 3. Hyponatremia. 4. Hyperkalemia, mild. 5. Hypertension. 6. Cervical neck injury and quadriplegia. 7. Suprapubic catheter. 8. Internal pump with baclofen. 9. Polycystic kidney. 10.History of deep venous thrombosis, on Coumadin. 11.Coumadin monitoring. RECOMMENDATIONS AND DISCUSSION: In this 82-year-old gentleman who presented with multiple complex medical issues, we will monitor the patient closely, continue the current management, continue with symptomatic treatment. Otherwise at this time will initiate broad-spectrum IV antibiotics. Patient was started on Merrem. I would also recommend infectious disease evaluation and urology evaluation. Resume the home medications. Warmed IV fluids. Prognosis is guarded because of multiple complex medical issues. Further recommendations to follow. A copy of this dictation is being forwarded to Dr. Loo, who is the primary physician. MMODL / IJN: [id number] /
[2018-07-09] MEDS: MEROPENEM 1 GM in SODIUM CHLORIDE 0.9% 100 ML IVPB SCH ×3 (04:51→22:10)
[2018-07-09] MEDS: LORATADINE 10 MG TAB PO SCH (08:42)
[2018-07-09] MEDS: METOPROLOL TARTRATE 12.5 MG TAB PO SCH ×2 (08:42→22:10)
[2018-07-09 09:43] LABS: INR 3.4 (<1.2); Prothrombin Time 32.3 sec (9.0-12.0)
[2018-07-09 09:46] LABS: Basophils % (A) 1 %; Eosinophils # (A) 0.1 k/uL (0-0.7); Eosinophils % (A) 2 %; HGB 12.8 gm/dL (13.0-17.5); Lymphocytes # (A) 0.8 k/uL (1.0-4.8); Lymphocytes % (A) 22 %; MCH 32.7 pg (25.0-35.0); MCHC 32.8 g/dL (31.0-37.0); MCV 99.7 fL (80.0-100.0); Macrocytosis Slight; Mean Platelet Volume 7.4; Monocytes # (A) 0.3 k/uL (0-1.0); Monocytes % (A) 8 %; Neutrophils # (A) 2.4 k/uL (1.3-7.7); Neutrophils % (A) 64 %; Platelet Count 112 k/uL (150-450); RBC 3.91 m/uL (4.30-5.90); RDW 15.2 % (11.5-15.5); WBC 3.7 k/uL (3.8-10.6)
[2018-07-09 10:00] LABS: Anion Gap 6 mmol/L; Blood Urea Nitrogen 16 mg/dL (9-20); Calcium 8.8 mg/dL (8.4-10.2); Carbon Dioxide 23 mmol/L (22-30); Chloride 103 mmol/L (98-107); Glucose 78 mg/dL (74-99); Potassium 4.4 mmol/L (3.5-5.1); Sodium 132 mmol/L (137-145)
[2018-07-09] MEDS: CYANOCOBALAMIN 500 MCG TAB PO SCH (12:39)
[2018-07-09] MEDS: MULTIVITAMINS, THERA 1 EACH TAB PO SCH (12:39)
[2018-07-09] MEDS: CHOLECALCIFEROL 400 UNIT TAB PO SCH (12:39)
[2018-07-09 14:37] LABS: Appearance,Urine Clear (Clear); Bacteria,Urine Rare /hpf; Bilirubin,Urine Negative (Negative); Blood,Urine Negative (Negative); Color,Urine Light Yellow; Glucose,Urine (UA) Negative (Negative); Ketones,Urine Trace (Negative); Leukocyte Esterase,Urine Large (Negative); Mucus,Urine Rare /hpf; Nitrite,Urine Negative (Negative); PH, Urine 6.5 (5.0-8.0); Protein,Urine Negative (Negative); RBC,Urine 1 /hpf (0-5); Specific Gravity,Urine 1.007 (1.001-1.035); Urobilinogen,Urine <2.0 mg/dL (<2.0)
--- NOTE | 2018-07-09 16:44 | CONS ---
CONSULTATION DATE OF SERVICE: 07/09/2018 REASON FOR CONSULTATION: UTI with sepsis. HISTORY OF PRESENT ILLNESS: The patient is an 82-year-old male with a past medical history significant for paraplegia secondary to spinal cord injury. The patient did have urinary retention that required suprapubic catheter placement. He has a history of UTI. The patient was recently admitted at this facility a few days ago for mental status changes and UTI. After several days the patient was discharged home on oral Ceftin; however, the patient has now been brought back to the ER with mental status changes and not responding to the family. Also mentioning some low-grade fever. However, the patient was hypothermic on arrival in the ER. No history of nausea, vomiting or any diarrhea. The patient's blood pressure was stable, not requiring any pressor support. The patient received a dose of Levaquin in the ER, though he is ALLERGIC TO CIPROFLOXACIN. Infectious Disease was consulted for further recommendations regarding antibiotic therapy. Patient's UA was positive for large leukocyte esterase WBC. Review of his culture data shows he grew Pseudomonas aeruginosa, ESBL E coli on his last urine culture. I was able to start the patient on meropenem after reviewing his data from home. this morning at the time of evaluation the patient is feeling better. Patient denies having any chest pain, shortness of breath or cough. No abdominal pain. No diarrhea. REVIEW OF SYSTEMS: Positive points have been mentioned in the HPI. The rest of the systems have been negative. PAST MEDICAL HISTORY: 1. Paraplegia secondary to spinal cord injury. 2. History of UTIs. 3. Hypertension. PAST SURGERY HISTORY: Suprapubic catheter and interval pain pump. SOCIAL HISTORY: No history of smoking, drinking or drug use. FAMILY HISTORY: Mother of sepsis. ALLERGIES: 1. CEPHALOSPORINS. 2. CIPROFLOXACIN. 3. NON-STEROIDALS. MEDICATIONS: The patient is currently on: 1. Tylenol. 2. Dulcolax. 3. Tums. 4. Vitamin D3. 5. Vitamin B12. 6. Benadryl. 7. Robitussin. 8. Imodium. 9. Claritin. 10.Meropenem 1 gram q.8 hours. 11.Lopressor. 12.Theragran. 13.Narcan. 14.Coumadin. PHYSICAL EXAMINATION: Blood pressure is 146/92 with a pulse of 78, temperature 94.6. He is 97% on room air. General description is an elderly male lying in bed in no distress. No tachypnea or accessory muscle of respiration use. HEENT EXAMINATION: No pallor or scleral icterus. Oral mucosa membrane is dry. No pharyngeal erythema or thrush. NECK: Trachea is central. No thyromegaly. LUNGS: Unlabored breathing. Clear to auscultation anteriorly. No wheeze or crackle. HEART: S1, S2. Regular rate and rhythm. ABDOMEN: Soft. No tenderness. No guarding or rigidity. EXTREMITIES: No edema of the feet. SKIN EXAMINATION: No rash or mass palpable. Neurologically patient is awake, alert, oriented. Mood and affect normal. LABS: Hemoglobin 12.8, white count 3.7, BUN of 16, creatinine 0.63. UA with large leukocyte esterases, 31 WBCs. The culture done on 07/03/2018 shows Pseudomonas aeruginosa and ESBL E coli. DIAGNOSTIC IMPRESSION AND PLAN: Patient admitted to hospital with mental status changes, hypothermia, which is likely multifactorial in this patient who has a history of recurrent urinary tract infection, source being his suprapubic catheter, with the last urine culture growing the same [id number] pathogens, including extended-spectrum beta-lactamase Escherichia coli and Pseudomonas aeruginosa, failing the outpatient oral Ceftin therapy. PLAN: 1. Suprapubic catheter has been changed. Request UA urine culture from the new [place]. 2. Meropenem 1 gram q.8 hours while waiting for his condition to stabilize and repeat cultures to finalize. 3. Will follow up on clinical condition to further adjust medication if needed. Thank you for this consultation. We will follow this patient along with you. Son was present at bedside. His questions and concerns were answered. MMODL / IJN: [id number] /
--- NOTE | 2018-07-09 17:29 | PN ---
PROGRESS NOTE DATE OF SERVICE: 07/09/2018 This 82-year-old gentleman who was admitted with change in mental status and UTI is being closely monitored. The patient had multiple organisms grown from the culture, including ESBL E coli, Pseudomonas aeruginosa and E coli. The patient is being closely monitored. Infectious Disease has been consulted. The patient was started on IV meropenem at this time. Past medical history reviewed. Review of systems could not be taken; the patient is dysarthric and has change in mental status. CURRENT MEDICATIONS: Reviewed. They include: 1. Tylenol 650 q.4 p.r.n. 2. Dulcolax 10 mg daily. 3. Tums. 4. Vitamin D3. 5. Vitamin B12. 6. Benadryl. 7. Robitussin p.r.n. 8. Imodium. 9. Claritin. 10.Meropenem 1 gram IV daily. 11.Coumadin dosing. PHYSICAL EXAMINATION: Patient is stuporous, conscious, dysarthric. Pulse 79, blood pressure 127/79, respiration 20, temperature 94.5, pulse ox 96% on room air. HEENT: Conjunctivae normal. Oral mucosa moist. NECK: No jugular venous distention. No carotid bruit. No lymph node enlargement. CARDIOVASCULAR SYSTEM: S1, S2 muffled. No S3. No S4. RESPIRATORY SYSTEM: Breath sounds diminished at the bases. A few scattered rhonchi and crackles. ABDOMEN: Soft, non-tender. No mass palpable. LEGS: No edema. No swelling. NERVOUS SYSTEM: Unchanged. Quadriparesis present. SKIN: Unchanged. LABS: WBC 3.7, hemoglobin 12.8, INR 3.4. Sodium 132. UA noted. Urine culture includes Pseudomonas aeruginosa, E coli and ESBL E coli from the recent cultures. ASSESSMENT: 1. Urinary tract infection with sepsis secondary to Pseudomonas aeruginosa, Escherichia coli and extended-spectrum beta-lactamase Escherichia coli. 2. Hypothermia secondary to sepsis. 3. Hyponatremia. 4. Change in mental status, metabolic encephalopathy, acute on chronic. 5. Hyperkalemia, mild. 6. Hypertension. 7. Cervical neck injury and quadriplegia. 8. Suprapubic catheter, which was replaced. 9. Internal pump with baclofen history. 10.Polycystic kidney history. 11.History of deep venous thrombosis, on Coumadin. 12.Coumadin monitoring. 13.Mild Coumadin coagulopathy. 14.FULL CODE. RECOMMENDATIONS AND DISCUSSION: In this 82-year-old gentleman who presented with multiple complex medical issues, we will monitor the patient closely, continue the current management, continue with symptomatic treatment. Otherwise at this time I recommend continuing with broad- spectrum IV antibiotics. Continue the rest of the medications. Hold Coumadin today. Monitor PT, INR closely. Continue the rest of the medications. Closely follow with Infectious Disease. Guarded prognosis. Further recommendations to follow. MMODL / IJN: [id number] /
[2018-07-09] MEDS ORDERED: WARFARIN 0.5 MG TAB PO ONE (18:00)
[2018-07-10] MEDS: MEROPENEM 1 GM in SODIUM CHLORIDE 0.9% 100 ML IVPB SCH ×3 (05:49→20:02)
[2018-07-10] MEDS: LORATADINE 10 MG TAB PO SCH (10:17)
[2018-07-10] MEDS: MULTIVITAMINS, THERA 1 EACH TAB PO SCH (10:17)
[2018-07-10] MEDS: METOPROLOL TARTRATE 12.5 MG TAB PO SCH ×2 (10:17→21:25)
[2018-07-10] MEDS: CYANOCOBALAMIN 500 MCG TAB PO SCH (10:17)
[2018-07-10] MEDS: CHOLECALCIFEROL 400 UNIT TAB PO SCH (10:19)
[2018-07-10] MEDS: diphenhydrAMINE 25 MG CAP PO PRN (12:10)
[2018-07-10 13:18] LABS: INR 3.8 (<1.2); Prothrombin Time 36.8 sec (9.0-12.0)
[2018-07-10 13:29] LABS: Anion Gap 5 mmol/L; Blood Urea Nitrogen 11 mg/dL (9-20); Carbon Dioxide 23 mmol/L (22-30); Chloride 116 mmol/L (98-107); Glucose 69 mg/dL (74-99); Potassium 3.1 mmol/L (3.5-5.1); Sodium 144 mmol/L (137-145)
[2018-07-10 13:34] LABS: Basophils % (A) 0 %; Eosinophils # (A) 0.1 k/uL (0-0.7); Eosinophils % (A) 2 %; HCT 31.2 % (39.0-53.0); Hypochromasia Slight; Lymphocytes # (A) 0.7 k/uL (1.0-4.8); Lymphocytes % (A) 20 %; MCH 32.5 pg (25.0-35.0); MCHC 32.2 g/dL (31.0-37.0); MCV 100.9 fL (80.0-100.0); Macrocytosis Slight; Mean Platelet Volume 7.5; Monocytes # (A) 0.3 k/uL (0-1.0); Monocytes % (A) 9 %; Neutrophils # (A) 2.2 k/uL (1.3-7.7); Neutrophils % (A) 65 %; Platelet Count 116 k/uL (150-450); RBC 3.09 m/uL (4.30-5.90); RDW 15.3 % (11.5-15.5); WBC 3.3 k/uL (3.8-10.6)
[2018-07-10 13:55] LABS: Calcium 6.4 mg/dL (8.4-10.2)
[2018-07-10] MEDS ORDERED: Potassium Replacement Protocol 1 EACH MISC MISCELLANE PRN (14:42)
[2018-07-10] MEDS: POTASSIUM CHLORIDE ER 20 MEQ TAB.ER PO SCH (14:59)
[2018-07-10] MEDS ORDERED: WARFARIN 0.5 MG TAB PO ONE (18:00)
[2018-07-10] MEDS: CALCIUM CARB-VIT D 500MG-200UN 1 EACH TAB PO SCH (21:25)
[2018-07-11] MEDS: MEROPENEM 1 GM in SODIUM CHLORIDE 0.9% 100 ML IVPB SCH ×3 (03:37→20:21)
--- NOTE | 2018-07-11 07:28 | PN ---
PROGRESS NOTE DATE OF SERVICE: 07/10/2018 This 82-year-old gentleman who was admitted with UTI, had possibly ESBL E coli. The patient is on IV antibiotics. No chest pain. No palpitations. Sodium is definitely improving. EXAM: Pulse 72, blood pressure 110/58, respirations 16, temperature 97.2, pulse ox 96% on room. HEENT: Conjunctivae normal. Oral mucosa moist. NECK: No jugular venous distention. No lymph node enlargement. CARDIOVASCULAR: S1, S2. RESPIRATORY: Diminished breath sounds at the bases. A few rhonchi, no crackles. ABDOMEN: Soft, nontender. LEGS: No swelling. NERVOUS SYSTEM: Quadriplegia, unchanged. LAB STUDIES: WBC 3.3, potassium 3.1, calcium 6.4, albumin is 1.9. ASSESSMENT: 1. Urinary tract infection with sepsis secondary to Pseudomonas aeruginosa Escherichia coli and the ESBL Escherichia coli. 2. Hypothermia secondary to sepsis. 3. Hyponatremia. 4. Change in mental status secondary to metabolic encephalopathy, acute on chronic secondary to sepsis. 5. Hyperkalemia, mild. 6. Hypocalcemia. 7. Hypertension. 8. Cervical neck injury and quadriplegia. 9. Suprapubic catheter which is replaced. 10.Internal pump with baclofen. 11.Polycystic kidney. 12.History of DVT, on Coumadin. 13.Coumadin monitoring. 14.Mild Coumadin coagulopathy. 15.FULL CODE. RECOMMENDATIONS: Recommend to continue current medication, continue symptomatic treatment. Otherwise, at this time I recommend continue with meropenem. I would also recommend continue with vitamin D3 and potassium supplementation. Overall prognosis guarded because of multiple complex medical issues. Further recommendations to follow. The INR is 2.8. At this time we will continue to hold Coumadin. We will supplement also vitamin D. MMODL / IJN: [id number] /
[2018-07-11] MEDS: LORATADINE 10 MG TAB PO SCH (09:03)
[2018-07-11] MEDS: diphenhydrAMINE 25 MG CAP PO PRN (09:03)
[2018-07-11] MEDS: MULTIVITAMINS, THERA 1 EACH TAB PO SCH (09:03)
[2018-07-11] MEDS: CYANOCOBALAMIN 500 MCG TAB PO SCH (09:03)
[2018-07-11] MEDS: CALCIUM CARB-VIT D 500MG-200UN 1 EACH TAB PO SCH ×2 (09:03→17:48)
[2018-07-11] MEDS: CHOLECALCIFEROL 400 UNIT TAB PO SCH (09:03)
[2018-07-11] MEDS: METOPROLOL TARTRATE 12.5 MG TAB PO SCH ×2 (09:03→20:21)
--- NOTE | 2018-07-11 09:19 | PN ---
PROGRESS NOTE DATE OF SERVICE: 07/10/2018 REASON FOR FOLLOWUP: Catheter associated infection. INTERVAL HISTORY: The patient is afebrile. He has been breathing comfortably. Denies having any chest pain or shortness of breath. No abdominal pain. No diarrhea. He did develop a rash for which the patient did received Benadryl. Denies significant itching or any difficulty breathing. PHYSICAL EXAMINATION: Blood pressure is 121/58 with a pulse of 72, temperature 97.3 he is 97% on air. General description is an elderly male lying in bed in no distress. Respiratory System: Unlabored breathing, clear to auscultation anteriorly. Heart: S1, S2. Regular rate and rhythm. Abdomen: Soft, no tenderness. Skin examination with a maculopapular rash. No vesicles. LABS: Hemoglobin is 10, white count 3.3, BUN of 11, creatinine 0.41. ( ) cultures has been gram-negative bacilli. DIAGNOSTIC IMPRESSION AND PLAN: Patient with catheter associated infection. Initial cultures were positive for ESBL E. coli and Pseudomonas aeruginosa. The patient is currently on meropenem. His [place] catheter has been changed and will be due for repeat cultures. Unfortunately, the patient has developed a rash and did have multiple antibiotic allergies. Currently with no other good antibiotics to treat underlying condition. He will be monitored closely and symptomatic treatment for the rash. Family was present at bedside. Their questions were answered. MMODL / IJN: [id number] /
--- NOTE | 2018-07-11 12:00 | P.GSCN ---
History of Present Illness Consult date: 07/08/18 Reason for Consult: Urinary retention, UTI Requesting physician: Wayne Stallings History of present illness: The patient is an 82-year-old quadriplegic white male who is had a suprapubic cystostomy tube for over 15 years. He is followed by Dr. Gee and was last seen in 2017. Initially, the catheter was changed monthly but is now necessary to change the catheter every 2 weeks. He resides at [facility] in [place]. A recent urine culture showed ESBL, Pseudomonas, and E. coli. He is admitted with mental status changes presumed to be due to UTI. Review of Systems - Constitutional Denies chills, Denies fever - Psychiatric Reports confusion 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 Year Discovered:: 07/03/18 MDRO Source:: URINE Past Surgical History: Orthopedic Surgery Additional Past Surgical History / Comment(s): Placement of suprapubic catheter r/t accident 2002, has internal pump with baclofen in abdomen Past Anesthesia/Blood Transfusion Reactions: No Reported Reaction Past Psychological History: No Psychological Hx Reported Smoking Status: Never smoker Past Alcohol Use History: None Reported Past Drug Use History: None Reported - Past Family History Mother History Unknown: Yes Additional Family Medical History / Comment(s): Mother at age 20 of sepsis Medications and Allergies Home Medications Medication Instructions Recorded Confirmed Type Acetaminophen Tab [Tylenol] 650 mg PO Q4H PRN 07/03/18 07/08/18 History Bisacodyl [Dulcolax] 10 mg RECTAL DAILY PRN 07/03/18 07/08/18 History Calcium Carbonate [Tums] 1,000 mg PO QID PRN 07/03/18 07/08/18 History Cholecalciferol [Vitamin D3] 400 unit PO DAILY 07/03/18 07/08/18 History Cranberry 425mg 425 mg PO BID 07/03/18 07/08/18 History Cyanocobalamin (Vitamin B-12) 1,000 mcg PO DAILY 07/03/18 07/08/18 History [Vitamin B-12] Loperamide [Imodium] 2 mg PO QID PRN 07/03/18 07/08/18 History Loratadine [Claritin] 10 mg PO DAILY 07/03/18 07/08/18 History Magnesium Hydroxide [Milk of 2,400 mg PO DAILY PRN 07/03/18 07/08/18 History Magnesia] Metoprolol Tartrate [Lopressor] 12.5 mg PO BID 07/03/18 07/08/18 History Multivitamins, Thera [Multivitamin 1 tab PO DAILY 07/03/18 07/08/18 History (formulary)] Na Phos,M-B/Na Phos,Di-Ba [Fleet 133 ml RECTAL DAILY PRN 07/03/18 07/08/18 History Adult] Warfarin [Coumadin] 1 mg PO DAILY 07/03/18 07/08/18 History diphenhydrAMINE [Benadryl] 25 mg PO Q6H PRN 07/03/18 07/08/18 History guaiFENesin SYRUP 100MG/5ML 200 mg PO DIRECTED PRN 07/03/18 07/08/18 History [Robitussin] Cefuroxime Axetil [Ceftin] 500 mg PO BID 7 Days #14 tab 07/05/18 07/08/18 Rx Allergies Allergy/AdvReac Type Severity Reaction Status Date / Time adhesive AdvReac Rash/Hives Verified 07/08/18 18:48 Cephalosporins AdvReac Unknown Verified 07/08/18 14:30 ciprofloxacin AdvReac Rash/Hives Verified 07/08/18 14:30 NSAIDS (Non-Steroidal AdvReac Unknown Verified 07/08/18 14:30 Anti-Inflamma Penicillins AdvReac Nausea & Verified 07/08/18 14:30 Vomiting Quinolones AdvReac Unknown Verified 07/08/18 14:30 Sulfa (Sulfonamide AdvReac Rash/Hives Verified 07/08/18 14:30 Antibiotics) Surgical - Exam Vital Signs Pulse Resp BP Pulse Ox 61 16 144/90 99 07/08/18 13:38 07/08/18 13:38 07/08/18 13:38 07/08/18 13:38 - General well developed, well nourished, no distress - Neck no masses, trachea midline - Respiratory normal respiratory effort - Abdomen The suprapubic cystostomy tube enters the bladder inferior to the umbilicus in the midline. Abdomen: soft, non tender, no guarding, no rigid, no rebound - Genitourinary normal penis with no external lesions, testicles non-tender Results - Labs 07/10/18 12:58 07/10/18 12:58 Abnormal Lab Results - Last 24 Hours (Table) 07/08/18 07/08/18 07/08/18 Range/Units 14:20 14:20 14:20 RBC 3.96 L (4.30-5.90) m/uL Hct 38.8 L (39.0-53.0) % Plt Count 105 L (150-450) k/uL Lymphocytes # 0.7 L (1.0-4.8) k/uL PT (9.0-12.0) sec INR (<1.2) Sodium 127 L (137-145) mmol/L Potassium 5.4 H (3.5-5.1) mmol/L Chloride 96 L (98-107) mmol/L BUN 22 H (9-20) mg/dL Creatinine 0.61 L (0.66-1.25) mg/dL Ur Leukocyte Esterase Large H (Negative) Urine WBC 31 H (0-5) /hpf Urine Bacteria Rare H (None) /hpf Urine Mucus Rare H (None) /hpf 07/08/18 Range/Units 14:20 RBC (4.30-5.90) m/uL Hct (39.0-53.0) % Plt Count (150-450) k/uL Lymphocytes # (1.0-4.8) k/uL PT 22.0 H (9.0-12.0) sec INR 2.3 H (<1.2) Sodium (137-145) mmol/L Potassium (3.5-5.1) mmol/L Chloride (98-107) mmol/L BUN (9-20) mg/dL Creatinine (0.66-1.25) mg/dL Ur Leukocyte Esterase (Negative) Urine WBC (0-5) /hpf Urine Bacteria (None) /hpf Urine Mucus (None) /hpf Microbiology - Last 24 Hours (Table) 07/08/18 14:20 Urine Culture - Preliminary Urine,Suprapubic Diabetes panel 07/08/18 Range/Units 14:20 Sodium 127 L (137-145) mmol/L Potassium 5.4 H (3.5-5.1) mmol/L Chloride 96 L (98-107) mmol/L Carbon Dioxide 22 (22-30) mmol/L BUN 22 H (9-20) mg/dL Creatinine 0.61 L (0.66-1.25) mg/dL Glucose 79 (74-99) mg/dL Calcium 8.8 (8.4-10.2) mg/dL Calcium panel 07/08/18 Range/Units 14:20 Calcium 8.8 (8.4-10.2) mg/dL Pituitary panel 07/08/18 Range/Units 14:20 Sodium 127 L (137-145) mmol/L Potassium 5.4 H (3.5-5.1) mmol/L Chloride 96 L (98-107) mmol/L Carbon Dioxide 22 (22-30) mmol/L BUN 22 H (9-20) mg/dL Creatinine 0.61 L (0.66-1.25) mg/dL Glucose 79 (74-99) mg/dL Calcium 8.8 (8.4-10.2) mg/dL Adrenal panel 07/08/18 Range/Units 14:20 Sodium 127 L (137-145) mmol/L Potassium 5.4 H (3.5-5.1) mmol/L Chloride 96 L (98-107) mmol/L Carbon Dioxide 22 (22-30) mmol/L BUN 22 H (9-20) mg/dL Creatinine 0.61 L (0.66-1.25) mg/dL Glucose 79 (74-99) mg/dL Calcium 8.8 (8.4-10.2) mg/dL Assessment and Plan (1) Urinary tract infection Current Visit: Yes Status: Acute Code(s): N39.0 - URINARY TRACT INFECTION, SITE NOT SPECIFIED SNOMED Code(s): 94200899 (2) Urinary retention Current Visit: Yes Status: Acute Code(s): R33.9 - RETENTION OF URINE, UNSPECIFIED SNOMED Code(s): 197458155 Plan: The patient's 20-[place] suprapubic cystostomy tube was removed. Under sterile conditions, the tube was replaced uneventfully and drained clear urine. Dr. Wynne has been consulted, so I will defer the choice of antibiotics to him. It would be my recommendation that the catheter continue to be changed biweekly. Please notify me if I can be of any further assistance. Time with Patient: Greater than 30
--- NOTE | 2018-07-11 12:01 | P.PN ---
Progress Note - Text Progress Note Date: 07/10/18 I was called by the nursing staff yesterday regarding the fact that there was leakage around the suprapubic cystostomy tube. This occurred after the tube had been clamped to obtain a urine specimen. I suggested that the nurse irrigate the suprapubic tube, which she did, confirming its patency. Since that time, there has been minimal drainage around the tube. I explained to the patient and the nurse that some drainage around the tube is normal, and that it may increase if the tube is occluded by sediment or kinking of the drainage tubing. It appears to be functioning well at this time. Please notify me if I can be of any further assistance.
[2018-07-11 12:36] LABS: Basophils % (A) 0 %; Eosinophils # (A) 0.1 k/uL (0-0.7); Eosinophils % (A) 2 %; HCT 38.9 % (39.0-53.0); HGB 12.4 gm/dL (13.0-17.5); Lymphocytes % (A) 18 %; MCH 32.3 pg (25.0-35.0); MCV 100.9 fL (80.0-100.0); Macrocytosis Slight; Mean Platelet Volume 7.2; Monocytes # (A) 0.5 k/uL (0-1.0); Monocytes % (A) 9 %; Neutrophils # (A) 3.6 k/uL (1.3-7.7); Neutrophils % (A) 68 %; Platelet Count 156 k/uL (150-450); RBC 3.85 m/uL (4.30-5.90); RDW 15.3 % (11.5-15.5); WBC 5.3 k/uL (3.8-10.6)
[2018-07-11 12:39] LABS: INR 2.5 (<1.2); Prothrombin Time 24.1 sec (9.0-12.0)
[2018-07-11 12:45] LABS: Anion Gap 5 mmol/L; Blood Urea Nitrogen 15 mg/dL (9-20); Calcium 9.1 mg/dL (8.4-10.2); Carbon Dioxide 26 mmol/L (22-30); Chloride 106 mmol/L (98-107); Glucose 86 mg/dL (74-99); Potassium 4.6 mmol/L (3.5-5.1); Sodium 137 mmol/L (137-145)
[2018-07-11] MEDS ORDERED: WARFARIN 1 MG TAB PO ONE (18:00)
--- NOTE | 2018-07-11 23:22 | PN ---
PROGRESS NOTE DATE OF SERVICE: 07/11/2018. REASON FOR FOLLOWUP: Catheter-associated urinary tract infection. INTERVAL HISTORY: The patient is currently afebrile. He has been breathing comfortably. The patient denies having any chest pain. No shortness of breath or cough. No abdominal pain. No nausea, vomiting. No diarrhea. PHYSICAL EXAMINATION: Blood pressure 117/75 with a pulse of 93, temperature 97.5, he is 94% on room air. GENERAL DESCRIPTION: An elderly male lying in bed in no distress. RESPIRATORY SYSTEM: Unlabored breathing. Clear to auscultation anteriorly. HEART: S1, S2. Regular rate and rhythm. ABDOMEN: Soft, no tenderness. LABS: Hemoglobin is 12.4, white count 5.3 with a BUN of 15, creatinine 0.67. Urine culture with Pseudomonas aeruginosa. Culture after changing Wilcox showing only enterococcus species. DIAGNOSTIC IMPRESSION AND PLAN: Patient admitted to the hospital with sepsis. Source is catheter-associated urinary tract infection. The catheter has been changed. Recent cultures with ESBL E coli and Pseudomonas, however, this admission culture is mostly Pseudomonas aeruginosa, sensitive to ciprofloxacin and meropenem. The patient at this time is to continue with meropenem as the patient is allergic to oral Cipro which had been use to finish therapy. We will be discussing with case management to see if the patient will be able to get the antibiotics at home. May give a short course of IV Merrem at home, if not will keep the patient in the hospital another day or two to finish his therapy. Family was present at bedside. Their questions were answered. MMODL / IJN: [id number] /
--- NOTE | 2018-07-11 23:52 | PN ---
PROGRESS NOTE DATE OF SERVICE: 07/11/2018. HISTORY: This 82-year-old gentleman admitted with UTI with ESBL E coli, is being closely monitored. The patient has quadriplegia. The sensorium is definitely improved and cultures are showing Pseudomonas aeruginosa as well as Aerococcus viridans. No chest pain. No palpitations. No fever. EXAM: Alert, oriented x1. Pulse 93, blood pressure 140/77, respirations 16, temperature 97.4, pulse ox 94% on room air. HEENT: Conjunctivae normal. NECK: Supple. No JVD. CARDIOVASCULAR: S1 and S2 muffled. LUNGS: Breath sounds diminished at the bases. Few scattered rhonchi and crackles. ABDOMEN: Soft, nontender. EXTREMITIES: Legs, no edema. NERVOUS SYSTEM: No focal deficits. LABS: WBC 5.8, hemoglobin 12.4, INR is 2.5. ASSESSMENT: 1. Urinary tract infection secondary to Pseudomonas aeruginosa, Aerococcus and E coli and as well as possibly ESBL E coli multiorganism. 2. Hypothermia secondary to sepsis. 3. Hyponatremia. 4. Change in mental status secondary to metabolic encephalopathy, acute on chronic, secondary to sepsis. 5. Hypokalemia, mild. 6. Hypocalcemia. 7. Hypertension. 8. Cervical neck injury and quadriplegia. 9. Suprapubic catheter, which is replaced. 10.Internal pump with baclofen. 11.Polycystic kidney. 12.History of deep venous thrombosis, on Coumadin. 13.Coumadin monitoring. 14.Mild Coumadin coagulopathy. 15.FULL CODE. RECOMMENDATIONS AND DISCUSSION: Recommend to continue current medication, continue symptomatic treatment. Otherwise at this time I would recommend continue with current medications. Continue with broad- spectrum IV antibiotics. Follow closely with multiple consultants including Infectious Disease and Urology. Guarded prognosis. Further recommendations to follow. MMODL / IJN: [id number] /
[2018-07-12] MEDS: MEROPENEM 1 GM in SODIUM CHLORIDE 0.9% 100 ML IVPB SCH ×3 (04:37→20:35)
[2018-07-12] MEDS: LORATADINE 10 MG TAB PO SCH (08:26)
[2018-07-12] MEDS: CALCIUM CARB-VIT D 500MG-200UN 1 EACH TAB PO SCH ×2 (08:26→18:02)
[2018-07-12] MEDS: METOPROLOL TARTRATE 12.5 MG TAB PO SCH ×2 (08:26→20:34)
[2018-07-12] MEDS: MULTIVITAMINS, THERA 1 EACH TAB PO SCH (08:26)
[2018-07-12] MEDS: CHOLECALCIFEROL 400 UNIT TAB PO SCH (08:26)
[2018-07-12] MEDS: CYANOCOBALAMIN 500 MCG TAB PO SCH (08:26)
[2018-07-12 10:21] LABS: Basophils % (A) 0 %; Eosinophils # (A) 0.1 k/uL (0-0.7); Eosinophils % (A) 2 %; HCT 39.6 % (39.0-53.0); HGB 12.2 gm/dL (13.0-17.5); Lymphocytes # (A) 1.1 k/uL (1.0-4.8); Lymphocytes % (A) 23 %; MCH 30.9 pg (25.0-35.0); MCHC 30.7 g/dL (31.0-37.0); MCV 100.5 fL (80.0-100.0); Macrocytosis Slight; Mean Platelet Volume 7.2; Monocytes # (A) 0.3 k/uL (0-1.0); Monocytes % (A) 7 %; Neutrophils # (A) 3.3 k/uL (1.3-7.7); Neutrophils % (A) 65 %; Platelet Count 170 k/uL (150-450); RBC 3.94 m/uL (4.30-5.90); RDW 15.5 % (11.5-15.5); WBC 5.1 k/uL (3.8-10.6)
[2018-07-12 10:25] LABS: Anion Gap 7 mmol/L; Blood Urea Nitrogen 16 mg/dL (9-20); Calcium 8.8 mg/dL (8.4-10.2); Carbon Dioxide 27 mmol/L (22-30); Chloride 100 mmol/L (98-107); Glucose 126 mg/dL (74-99); Potassium 4.2 mmol/L (3.5-5.1); Sodium 134 mmol/L (137-145)
[2018-07-12 18:19] LABS: INR 1.6 (<1.2); Prothrombin Time 16.1 sec (9.0-12.0)
--- NOTE | 2018-07-12 18:29 | PN ---
PROGRESS NOTE DATE OF SERVICE: 07/12/2018 This 82-year-old gentleman admitted with UTI with ESBL E coli, is being closely monitored. The sensorium has improved significantly. Dr. Wynne would like to continue with IV antibiotics a few more days in the hospital. No chest pain, no palpitation. EXAM: Patient is conscious, confused. Pulse 95, blood pressure 135/83, respirations 16, temp 97.8, pulse ox 94% on room air. HEENT: Conjunctivae normal. Oral mucosa moist. NECK: No jugular venous distention. No lymph node enlargement. CARDIOVASCULAR: S1, S2. RESPIRATORY: Diminished breath sounds muffled at the bases. Scattered rhonchi and crackles. ABDOMEN: Soft, nontender. LEGS: No swelling. NERVOUS SYSTEM: No focal deficits. LABS: WBC 5.2, hemoglobin 12.2, sodium is 134. ASSESSMENT: 1. Urinary tract infection secondary to Pseudomonas aeruginosa, Aerococcus and Escherichia coli as well as possibly ESBL E. coli, multiple organisms with sepsis. 2. Hypothermia secondary to sepsis, present on admission. 3. Hyponatremia, multifactorial. 4. Change in mental status secondary to metabolic encephalopathy, acute on chronic secondary to sepsis. 5. Hypokalemia, mild. 6. Hypocalcemia. 7. Hypertension. 8. Cervical neck injury and quadriplegia. 9. Suprapubic catheter which is replaced. 10.Internal pump with baclofen. 11.History of polycystic kidney. 12.History of DVT, Coumadin. 13.Coumadin monitoring. 14.Mild Coumadin coagulopathy. 15.FULL CODE. RECOMMENDATIONS: Recommend to continue current management and symptomatic treatment. We will continue to IV antibiotics. Closely follow with Infectious Disease. Guarded prognosis because of multiple complex medical issues. Further recommendations to follow. MMODL / IJN: [id number] /
[2018-07-12] MEDS ORDERED: WARFARIN 1 MG TAB PO ONE (19:00)
--- NOTE | 2018-07-12 23:32 | PN ---
PROGRESS NOTE DATE OF SERVICE: 07/12/2018. REASON FOR FOLLOWUP: Catheter associated urinary tract infection with Pseudomonas aeruginosa. INTERVAL HISTORY: The patient is currently afebrile, has been breathing comfortably. Denies any chest pain or shortness of breath or cough. No abdominal pain or any diarrhea. PHYSICAL EXAMINATION: Blood pressure 135/86, pulse of 95, temperature 97.8, he is 95% on room air. GENERAL DESCRIPTION: An elderly male lying in bed in no distress. RESPIRATORY SYSTEM: Unlabored breathing. Clear to auscultation anteriorly. HEART: S1, S2. Regular rate and rhythm. ABDOMEN: Soft, no tenderness. LABS: Hemoglobin is 12.1, white count 5.1 with a BUN of 15 and 0.65. DIAGNOSTIC IMPRESSION AND PLAN: Patient with catheter-associated urinary tract infection. Suprapubic catheter has been changed. Culture with Pseudomonas aeruginosa. The patient does not want to go to a [place] [facility] [place] facility. Continue previous antibiotic therapy, today is day 4 of 5 of his antibiotic. May be able to finish his antibiotic therapy as of tomorrow morning. All questions and concerns were answered. Continue supportive care. MMODL / IJN: [id number] /
[2018-07-13] MEDS: MEROPENEM 1 GM in SODIUM CHLORIDE 0.9% 100 ML IVPB SCH ×3 (03:50→21:48)
[2018-07-13] MEDS: METOPROLOL TARTRATE 12.5 MG TAB PO SCH ×2 (09:01→21:48)
[2018-07-13] MEDS: LORATADINE 10 MG TAB PO SCH (09:01)
[2018-07-13] MEDS: CALCIUM CARB-VIT D 500MG-200UN 1 EACH TAB PO SCH ×2 (09:01→17:09)
[2018-07-13 09:47] VITALS: RESP 16
[2018-07-13 10:19] LABS: HCT 40.3 % (39.0-53.0); HGB 12.9 gm/dL (13.0-17.5); MCH 31.8 pg (25.0-35.0); MCV 99.5 fL (80.0-100.0); Macrocytosis Slight; Platelet Count 163 k/uL (150-450); RBC 4.05 m/uL (4.30-5.90); RDW 15.2 % (11.5-15.5); WBC 6.1 k/uL (3.8-10.6)
[2018-07-13 10:20] LABS: INR 1.5 (<1.2); Prothrombin Time 15.4 sec (9.0-12.0)
[2018-07-13 10:32] LABS: Anion Gap 4 mmol/L; Blood Urea Nitrogen 17 mg/dL (9-20); Carbon Dioxide 29 mmol/L (22-30); Chloride 100 mmol/L (98-107); Glucose 102 mg/dL (74-99); Potassium 4.2 mmol/L (3.5-5.1); Sodium 133 mmol/L (137-145)
[2018-07-13] MEDS: MULTIVITAMINS, THERA 1 EACH TAB PO SCH (13:22)
[2018-07-13] MEDS: CHOLECALCIFEROL 400 UNIT TAB PO SCH (13:22)
[2018-07-13] MEDS: CYANOCOBALAMIN 500 MCG TAB PO SCH (13:22)
--- NOTE | 2018-07-13 13:32 | FL ---
EXAMINATION TYPE: FL barium swallow w video DATE OF EXAM: 07/13/2018 COMPARISON: NONE HISTORY: Abnormal bedside coughing TECHNIQUE: Fluoroscopy. FINDINGS: Fluoroscopic guidance was provided for the procedure performed in conjunction with the [facility] ech pathology department. Please see complete report forthcoming from the Speech Pathology departmen t. Various consistencies from thin liquid to solids were administered. Fluoroscopy time 3 minutes 3 seconds Number of images: 0. Penetration was evident with thin liquids. There was some aspiration with thin liquids and possibly n ectar thick liquids. There is moderate pooling within the vallecula Epiglottis was not inverting during the exam IMPRESSION: 1. Aspiration with thin liquids. Potential aspiration with some penetration evident with thick liquid s. Please see complete report forthcoming from the speech pathology department.
[2018-07-13] MEDS ORDERED: WARFARIN 2.5 MG TAB PO ONE (18:00)
--- NOTE | 2018-07-13 18:41 | P.PN ---
Subjective Progress Note Date: 07/13/18 Progress note being dictated for Dr. Knowles. Interval history: This is an 82-year-old gentleman admitted with acute UTI with pseudomonas aeruginosa, Aerococus viridans. Maintained on IV antibiotics as per infectious disease. Significant improvement in sensorium. Afebrile. Scheduled for MBS today. Denies chest pain, palpitations or increased shortness of breath. Objective - Vital Signs Vital signs: Vital Signs Temp 98.8 F 07/13/18 16:00 Pulse 80 07/13/18 16:00 Resp 16 07/13/18 16:00 BP 132/74 07/13/18 16:00 Pulse Ox 97 07/13/18 16:00 Intake & Output 07/12/18 07/13/18 07/13/18 18:59 06:59 18:59 Intake Total 1120 300 400 Output Total 300 2100 2800 Balance 820 -1800 -2400 Weight 72.575 kg Intake: Oral 1120 300 400 Output: Urine 300 2100 2800 Other: Voiding Method Indwelling Catheter Indwelling Catheter Indwelling Catheter - Exam PHYSICAL EXAM: VITAL SIGNS: As above GENERAL: Sitting up in bed, no acute distress, pleasantly confused HEENT: Conjunctivae normal. eyes normal. Oral mucosa moist NECK: No JVD. No thyroid enlargement. No LNs CARDIOVASCULAR: S1, S2 muffled. No murmur RESPIRATION: Breath sounds diminished in the bases. Scattered rhonchi, ABDOMEN: Soft, nontender . No guarding. no masses palpable.Bowel sounds heard. LEGS: No edema. no swelling PSYCHIATRY: Alert and oriented -2, calm, cooperative, pleasantly confused NERVOUS SYSTEM: Quadriplegia, No focal deficits. Microbiology 07/09/18 14:20 Urine,Voided Urine Culture - Final Aerococcus viridans 07/08/18 14:20 Urine,Suprapubic Urine Culture - Final Pseudomonas aeruginosa - Labs CBC & Chem 7: 07/13/18 09:41 07/13/18 09:41 Labs: Abnormal Lab Results - Last 24 Hours (Table) 07/13/18 07/13/18 07/13/18 Range/Units 09:41 09:41 09:41 RBC 4.05 L (4.30-5.90) m/uL Hgb 12.9 L (13.0-17.5) gm/dL PT 15.4 H (9.0-12.0) sec INR 1.5 H (<1.2) Sodium 133 L (137-145) mmol/L Glucose 102 H (74-99) mg/dL Assessment and Plan Assessment: -Acute UTI , supratherapeutic catheter associated UTI, with pseudomonas aeruginosa and Aerococus viridans. -Hypothermia secondary to sepsis, present on admission,resolved. -Hyponatremia, multifactorial -Change in mental status secondary to acute metabolic encephalopathy, acute on chronic secondary to sepsis, improving -Cervical neck injury and quadriplegia -Coumadin monitoring -History of DVT on Coumadin Plan: Continue current medication regime ,monitoring and symptomatic treatment. Completing antibiotic therapy tomorrow morning as per infectious disease. [facility] The impression and plan of care has been dictated as directed. : I performed a history and examination of this patient, discussed the same with the dictator. I agree with the dictator's note ,documented as a scribe. Any additional findings or plans will be noted.
--- NOTE | 2018-07-14 03:13 | PN ---
PROGRESS NOTE DATE OF SERVICE: 07/13/2018 REASON FOR FOLLOWUP: Pseudomonas catheter associated urinary tract infection with MULTIPLE ANTIBIOTIC ALLERGIES. INTERVAL HISTORY: The patient is currently afebrile, has been breathing comfortably. Denies having any chest pain or shortness of breath or cough. No abdominal pain. No diarrhea. PHYSICAL EXAMINATION: Blood pressure 132/74 with a pulse of 80, temperature 98.8. He is 97% on room air. General description is an elderly male lying in bed in no distress. Respiratory system: Unlabored breathing. Clear to auscultation anteriorly. Heart S1, S2. Regular rate and rhythm. Abdomen soft. No tenderness. LABS: Hemoglobin is 12.9, white count 6.1, BUN of 17, creatinine 0.68. DIAGNOSTIC IMPRESSION AND PLAN: Patient with pseudomonas catheter associated urinary tract infection for which the patient received about 7 days of antibiotic which can be discontinued after tomorrow morning dose. No need for antibiotic on discharge. Continue supportive care. MMODL / IJN: [id number] /
[2018-07-14] MEDS: MEROPENEM 1 GM in SODIUM CHLORIDE 0.9% 100 ML IVPB SCH ×2 (06:15→12:51)
[2018-07-14] MEDS: CALCIUM CARB-VIT D 500MG-200UN 1 EACH TAB PO SCH (08:33)
[2018-07-14] MEDS: LORATADINE 10 MG TAB PO SCH (08:33)
[2018-07-14] MEDS: METOPROLOL TARTRATE 12.5 MG TAB PO SCH (08:33)
[2018-07-14 09:30] LABS: INR 1.9 (<1.2); Prothrombin Time 18.4 sec (9.0-12.0)
[2018-07-14 09:39] VITALS: BP 159/99; PULSE 84; TEMP 96.8
[2018-07-14] MEDS: CHOLECALCIFEROL 400 UNIT TAB PO SCH (12:52)
[2018-07-14] MEDS: MULTIVITAMINS, THERA 1 EACH TAB PO SCH (12:52)
[2018-07-14] MEDS: CYANOCOBALAMIN 500 MCG TAB PO SCH (12:52)
--- NOTE | 2018-07-14 15:07 | PN ---
PROGRESS NOTE DATE OF SERVICE: 07/14/2018 REASON FOR FOLLOWUP: Pseudomonas catheter associated urinary tract infection. INTERVAL HISTORY: The patient was seen on rounds this afternoon. The patient has been afebrile. He is breathing comfortably. Denies having any chest pain, shortness of breath or cough. No abdominal pain and no diarrhea. PHYSICAL EXAMINATION: Blood pressure 159/99 with a pulse of 84, temperature 96.8. He is 97% on room air. General description is elderly male, lying in bed in no distress. RESPIRATORY SYSTEM: Unlabored breathing, clear to auscultation anteriorly. HEART: S1, S2. Regular rate and rhythm. ABDOMEN: Soft, no tenderness. LABS: White count 6.1, creatinine 0.68. DIAGNOSTIC IMPRESSION AND PLAN: Patient with Pseudomonas catheter associated urinary tract infection, underlying infection has , no need for antibiotic on discharge. Continue supportive care. MMODL / IJN: [id number] /
--- NOTE | 2018-07-15 20:46 | P.DS ---
Providers Date of admission: 07/08/18 16:20 Expected date of discharge: 07/14/18 Attending physician: Wayne Knowles Consults: 07/08/18 16:07 Consult Physician Routine Consulting Provider: Efra Wynne Consult Reason/Comments: esbl urine, pseudomonas urine Do you want consulting provider notified?: Yes 07/08/18 17:24 Consult Physician Urgent Consulting Provider: Abdulaziz Lei Consult Reason/Comments: Suprapubic catheter; UTI Do you want consulting provider notified?: Yes Primary care physician: [facility] Course: Final Diagnoses: -Acute UTI , supratherapeutic catheter associated UTI, with pseudomonas aeruginosa and Aerococus viridans. -Hypothermia secondary to sepsis, present on admission,resolved. -Hyponatremia, multifactorial -Change in mental status secondary to acute metabolic encephalopathy, acute on chronic secondary to sepsis, improving -Cervical neck injury and quadriplegia -Coumadin monitoring -History of DVT on Coumadin Hospital course: This is an 82-year-old gentleman admitted with acute UTI with pseudomonas aeruginosa, Aerococus viridans. Maintained on IV antibiotics as per infectious disease. Sensorium improved. Diet: Dysphagia level III CHOPPED, one-to-one supervision, please refer to speech therapy's recommendations, post MBS. Significant clinical improvement. Completed antibiotic therapy with no need for antibiotics at discharge as per infectious disease. Cleared by infectious disease for discharge. Patient is being discharged to [facility] in a stable condition with guarded prognosis. EXAM: GENERAL: Alert and oriented 2, no acute distress CARDIOVASCULAR: S1, S2 muffled. No murmur RESPIRATION: Breath sounds diminished in the bases. Scattered rhonchi, ABDOMEN: Soft, nontender . No guarding. no masses palpable.Bowel sounds heard. NERVOUS SYSTEM: Quadriplegia, No focal deficits. The impression and plan of care has been dictated as directed. : I performed a history and examination of this patient, discussed the same with the dictator. I agree with the dictator's note ,documented as a scribe. Any additional findings or plans will be noted. Time taken: 35 minutes Patient Condition at Discharge: Stable Plan - Discharge Summary New Discharge Prescriptions: Continue Acetaminophen Tab [Tylenol] 650 mg PO Q4H PRN PRN Reason: Pain Or Fever > 100.5 guaiFENesin SYRUP 100MG/5ML [Robitussin] 200 mg PO DIRECTED PRN PRN Reason: Cough Loperamide [Imodium] 2 mg PO QID PRN PRN Reason: Loose Stool diphenhydrAMINE [Benadryl] 25 mg PO Q6H PRN PRN Reason: Itching Na Phos,M-B/Na Phos,Di-Ba [Fleet Adult] 133 ml RECTAL DAILY PRN PRN Reason: Constipation Calcium Carbonate [Tums] 1,000 mg PO QID PRN PRN Reason: Heartburn Bisacodyl [Dulcolax] 10 mg RECTAL DAILY PRN PRN Reason: Constipation Warfarin [Coumadin] 1 mg PO DAILY Cyanocobalamin (Vitamin B-12) [Vitamin B-12] 1,000 mcg PO DAILY Cholecalciferol [Vitamin D3] 400 unit PO DAILY Multivitamins, Thera [Multivitamin (formulary)] 1 tab PO DAILY Metoprolol Tartrate [Lopressor] 12.5 mg PO BID Loratadine [Claritin] 10 mg PO DAILY Magnesium Hydroxide [Milk of Magnesia] 2,400 mg PO DAILY PRN PRN Reason: Constipation Cranberry 425mg 425 mg PO BID Discontinued Cefuroxime Axetil [Ceftin] 500 mg PO BID 7 Days #14 tab Discharge Medication List Acetaminophen Tab [Tylenol] 650 mg PO Q4H PRN 07/03/18 [History] Bisacodyl [Dulcolax] 10 mg RECTAL DAILY PRN 07/03/18 [History] Calcium Carbonate [Tums] 1,000 mg PO QID PRN 07/03/18 [History] Cholecalciferol [Vitamin D3] 400 unit PO DAILY 07/03/18 [History] Cranberry 425mg 425 mg PO BID 07/03/18 [History] Cyanocobalamin (Vitamin B-12) [Vitamin B-12] 1,000 mcg PO DAILY 07/03/18 [ History] Loperamide [Imodium] 2 mg PO QID PRN 07/03/18 [History] Loratadine [Claritin] 10 mg PO DAILY 07/03/18 [History] Magnesium Hydroxide [Milk of Magnesia] 2,400 mg PO DAILY PRN 07/03/18 [History] Metoprolol Tartrate [Lopressor] 12.5 mg PO BID 07/03/18 [History] Multivitamins, Thera [Multivitamin (formulary)] 1 tab PO DAILY 07/03/18 [History ] Na Phos,M-B/Na Phos,Di-Ba [Fleet Adult] 133 ml RECTAL DAILY PRN 07/03/18 [ History] Warfarin [Coumadin] 1 mg PO DAILY 07/03/18 [History] diphenhydrAMINE [Benadryl] 25 mg PO Q6H PRN 07/03/18 [History] guaiFENesin SYRUP 100MG/5ML [Robitussin] 200 mg PO DIRECTED PRN 07/03/18 [ History] Follow up Appointment(s)/Referral(s): Ernst Loo MD [Primary Care Provider] - 3 Days Efra Wynne MD [STAFF PHYSICIAN] - As Needed Ambulatory/Diagnostic Orders: Complete Blood Count w/diff [LAB.AMB] Time Frame: 07/16/18, Location: None Selected Patient Instructions/Handouts: Urinary Tract Infection in Men (DC), How to Care for Your Suprapubic Catheter (DC) Activity/Diet/Wound Care/Special Instructions: [facility] antibiotic therapy completed as per ID. CBC, BMP, PT/INR on 07/16/2018 with results to PCP Diet: Dysphagia level III CHOPPED, one-to-one supervision, please refer to speech therapy's recommendations [facility] will resume at d/c. Discharge Disposition: HOME WITH HOME HEALTH SERVICES
== END 2018-07-14 14:05 | disposition home health service (06) | DRG 698 ==
LOC: EC 13:28 → 4MS4W 16:20
PROVIDERS: ADMIT Hospitalist; ATTEND Hospitalist
PROC: 0T2BX0Z Change Drainage Device in Bladder, External Approach (ICD-10-PCS; principal; 2018-07-08)
DX: T83.518A Infection and inflammatory reaction due to other urinary catheter, initial encounter (principal); A41.52 Sepsis due to Pseudomonas; G82.50 Quadriplegia, unspecified; G93.41 Metabolic encephalopathy; E87.1 Hypo-osmolality and hyponatremia; N39.0 Urinary tract infection, site not specified; Q61.3 Polycystic kidney, unspecified; Y84.6 Urinary catheterization as the cause of abnormal reaction of the patient, or of later complication, without mention of misadventure at the time of the procedure; Y73.8 Miscellaneous gastroenterology and urology devices associated with adverse incidents, not elsewhere classified; B96.20 Unspecified Escherichia coli [E. coli] as the cause of diseases classified elsewhere; E83.51 Hypocalcemia; E87.5 Hyperkalemia; E87.6 Hypokalemia; I10 Essential (primary) hypertension; R79.1 Abnormal coagulation profile; T45.515A Adverse effect of anticoagulants, initial encounter; T83.030A Leakage of cystostomy catheter, initial encounter; Z16.12 Extended spectrum beta lactamase (ESBL) resistance; Z16.24 Resistance to multiple antibiotics; Z79.01 Long term (current) use of anticoagulants; Z86.19 Personal history of other infectious and parasitic diseases; Z86.718 Personal history of other venous thrombosis and embolism; Z87.440 Personal history of urinary (tract) infections; Z88.1 Allergy status to other antibiotic agents; Z93.59 Other cystostomy status; Z88.6 Allergy status to analgesic agent; Z88.0 Allergy status to penicillin; Z88.2 Allergy status to sulfonamides; S14.9XXS Injury of unspecified nerves of neck, sequela; W19.XXXS Unspecified fall, sequela; Z97.8 Presence of other specified devices; R33.9 Retention of urine, unspecified; Z79.899 Other long term (current) drug therapy
CPT/HCPCS: 36415; 71046; 74230; 80048; 81001; 82040; 83605; 85025; 85027; 85610; 87077; 87086; 87186; 87502; 96365; 99285

== ENCOUNTER 2018-07-23 15:47 | Observation (INO) | payer MEDICARE ==
--- NOTE | 2018-07-23 16:28 | ED ---
General Adult HPI - General Chief complaint: Shortness of Breath Stated complaint: SOB Source: patient, EMS Mode of arrival: EMS - Related Data Home Medications Medication Instructions Recorded Confirmed Acetaminophen Tab [Tylenol] 650 mg PO Q4H PRN 07/03/18 07/23/18 Calcium Carbonate [Tums] 1,000 mg PO QID PRN 07/03/18 07/23/18 Cholecalciferol [Vitamin D3] 400 unit PO DAILY 07/03/18 07/23/18 Cranberry 425mg 425 mg PO BID 07/03/18 07/23/18 Cyanocobalamin (Vitamin B-12) 1,000 mcg PO DAILY 07/03/18 07/23/18 [Vitamin B-12] Loperamide [Imodium] 2 mg PO QID PRN 07/03/18 07/23/18 Loratadine [Claritin] 10 mg PO DAILY 07/03/18 07/23/18 Magnesium Hydroxide [Milk of 2,400 mg PO DAILY PRN 07/03/18 07/23/18 Magnesia] Metoprolol Tartrate [Lopressor] 12.5 mg PO BID 07/03/18 07/23/18 Multivitamins, Thera [Multivitamin 1 tab PO DAILY 07/03/18 07/23/18 (formulary)] Na Phos,M-B/Na Phos,Di-Ba [Fleet 133 ml RECTAL DAILY PRN 07/03/18 07/23/18 Adult] Warfarin [Coumadin] 1 mg PO DAILY 07/03/18 07/23/18 diphenhydrAMINE [Benadryl] 25 mg PO Q6H PRN 07/03/18 07/23/18 Allergies Allergy/AdvReac Type Severity Reaction Status Date / Time adhesive AdvReac Rash/Hives Verified 07/23/18 16:36 Cephalosporins AdvReac Unknown Verified 07/23/18 16:36 ciprofloxacin AdvReac Rash/Hives Verified 07/23/18 16:36 NSAIDS (Non-Steroidal AdvReac Unknown Verified 07/23/18 16:36 Anti-Inflamma Penicillins AdvReac Nausea & Verified 07/23/18 16:36 Vomiting Quinolones AdvReac Unknown Verified 07/23/18 16:36 Sulfa (Sulfonamide AdvReac Rash/Hives Verified 07/23/18 16:36 Antibiotics) Review of Systems ROS Statement: Those systems with pertinent positive or pertinent negative responses have been documented in the HPI. ROS Other: All systems not noted in ROS Statement are negative. 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 Date of last positivie culture/infection: 07/03/18 MDRO Source:: URINE Past Surgical History: Orthopedic Surgery Additional Past Surgical History / Comment(s): Placement of suprapubic catheter r/t accident 2002, has internal pump with baclofen in abdomen Past Anesthesia/Blood Transfusion Reactions: No Reported Reaction Past Psychological History: No Psychological Hx Reported Smoking Status: Never smoker Past Alcohol Use History: None Reported Past Drug Use History: None Reported - Past Family History Mother History Unknown: Yes Additional Family Medical History / Comment(s): Mother at age 20 of sepsis Course Vital Signs 07/23/18 07/23/18 07/23/18 15:52 16:27 16:29 Pulse Rate 60 Respiratory 18 Rate Blood Pressure 133/92 O2 Sat by Pulse 100 82 L 95 Oximetry 07/23/18 07/23/18 07/23/18 16:31 17:10 17:30 Pulse Rate 50 L 55 L Respiratory 16 14 Rate Blood Pressure 133/92 108/84 O2 Sat by Pulse 91 L 94 L 98 Oximetry 07/23/18 07/23/18 07/23/18 18:00 18:01 18:05 Pulse Rate 47 L 49 L Respiratory 16 16 16 Rate Blood Pressure 115/69 97/66 O2 Sat by Pulse 97 99 Oximetry 07/23/18 19:30 Pulse Rate 67 Respiratory 20 Rate Blood Pressure 133/95 O2 Sat by Pulse 98 Oximetry Medical Decision Making - Medical Decision Making Dictation was produced using [employer] dictation software. please excuse any grammatical, word or spelling errors. Chief Complaint: 82-year-old male with multiple comorbidities presents with chief complaint of hypoxia when lying flat. History of Present Illness: It is a poor historian. Patient is known to emergency department. Patient is bedbound.. He has history of suprapubic catheter. Patient transferred from skilled nursing facility. According to EMS patient is hypoxic when lying flat. Patient is not know why he is here today. He reports that"he came here to ." Patient denies suicidality however. No homicidal ideation. No visual or auditory hallucinations. Patient otherwise has no complaints at this time. The ROS documented in this emergency department record has been reviewed and confirmed by me. Those systems with pertinent positive or negative responses have been documented in the HPI. All other systems are other negative and/or noncontributory. PHYSICAL EXAM: General Impression: Alert and oriented x3, not in acute distress HEENT: Normocephalic atraumatic, extra-ocular movements intact, pupils equal and reactive to light bilaterally, mucous membranes moist. Cardiovascular: Heart regular rate and rhythm, S1&S2 audible, no murmurs, rubs or gallops Chest: Mild expiratory pleural rub Abdomen: Bowel sounds present, abdomen soft, non-tender, non-distended, no organomegaly, suprapubic catheter in place Musculoskeletal: Pulses present and equal in all extremities, no peripheral edema Motor: Left-sided contracture, paraplegic Neurological: CN II-XII grossly intact, no focal motor or sensory deficits noted Skin: Intact with no visualized rashes ED course: 52-year-old male with multiple comorbidities presents with chief complaint of hypoxia with supine position. Vital signs upon arrival are within acceptable limits. Patient was placed in supine position and became hypoxic into the 90%. Laboratory evaluation obtained. CBC, metabolic panel obtained showing no acute processes. Cardiac enzymes are negative. Patient is INR 3.4. Urinalysis shows 47 white blood cells. Positive nitrates. Urine culture sent. Patient's history of suprapubic catheter. Chest x-ray obtained showing no acute processes. Chest CT shows no acute processes. Brain CT is negative. Family arrived later and reports that patient received Benadryl prior to being sent to the emergency department. Patient becomes hypoxic when he falls asleep. Patient is sleepy however he is arousable. Given patient's hypoxia patient will be admitted. He is placed on supplemental oxygen. Clinical presentation consistent with hypoxic respiratory failure. There is strong coca suspicion that he should have a adverse reaction to Benadryl administration. EKG interpretation: Ventricular rate 51, sinus bradycardia, MT interval 226, care surgeon 86, QTC 422. No MT prolongation, no QTC prolongation, no ST or T- wave changes noted. . Overall, this EKG is unremarkable - Lab Data Result diagrams: 07/23/18 16:08 07/23/18 16:08 Lab Results 07/23/18 07/23/18 07/23/18 Range/Units 16:08 16:08 16:08 WBC 5.0 (3.8-10.6) k/uL RBC 4.17 L (4.30-5.90) m/uL Hgb 13.5 (13.0-17.5) gm/dL Hct 42.4 (39.0-53.0) % MCV 101.7 H (80.0-100.0) fL MCH 32.3 (25.0-35.0) pg MCHC 31.8 (31.0-37.0) g/dL RDW 15.0 (11.5-15.5) % Plt Count 168 (150-450) k/uL Neutrophils % 74 % Lymphocytes % 18 % Monocytes % 5 % Eosinophils % 1 % Basophils % 0 % Neutrophils # 3.7 (1.3-7.7) k/uL Lymphocytes # 0.9 L (1.0-4.8) k/uL Monocytes # 0.3 (0-1.0) k/uL Eosinophils # 0.0 (0-0.7) k/uL Basophils # 0.0 (0-0.2) k/uL Macrocytosis Slight PT (9.0-12.0) sec INR (<1.2) APTT (22.0-30.0) sec Sodium 135 L (137-145) mmol/L Potassium 4.4 (3.5-5.1) mmol/L Chloride 101 (98-107) mmol/L Carbon Dioxide 28 (22-30) mmol/L Anion Gap 6 mmol/L BUN 18 (9-20) mg/dL Creatinine 0.71 (0.66-1.25) mg/dL Est GFR (CKD-EPI)AfAm >90 (>60 ml/min/1.73 sqM) Est GFR (CKD-EPI)NonAf 88 (>60 ml/min/1.73 sqM) Glucose 98 (74-99) mg/dL Calcium 9.3 (8.4-10.2) mg/dL Magnesium 1.9 (1.6-2.3) mg/dL Total Bilirubin 0.6 (0.2-1.3) mg/dL AST 29 (17-59) U/L ALT 35 (21-72) U/L Alkaline Phosphatase 84 (38-126) U/L Total Creatine Kinase 33 L (55-170) U/L CK-MB (CK-2) 2.4 (0.0-2.4) ng/mL CK-MB (CK-2) Rel Index 7.3 Troponin I <0.012 (0.000-0.034) ng/mL NT-Pro-B Natriuret Pep pg/mL Total Protein 6.1 L (6.3-8.2) g/dL Albumin 3.4 L (3.5-5.0) g/dL Urine Color Urine Appearance (Clear) Urine pH (5.0-8.0) Ur Specific [place] (1.001-1.035) Urine Protein (Negative) Urine Glucose (UA) (Negative) Urine Ketones (Negative) Urine Blood (Negative) Urine Nitrite (Negative) Urine Bilirubin (Negative) Urine Urobilinogen (<2.0) mg/dL Ur Leukocyte Esterase (Negative) Urine RBC (0-5) /hpf Urine WBC (0-5) /hpf Urine WBC Clumps (None) /hpf Ur Squamous Epith Cells (0-4) /hpf Hyaline Casts (0-2) /lpf 07/23/18 07/23/18 07/23/18 Range/Units 16:08 16:08 16:08 WBC (3.8-10.6) k/uL RBC (4.30-5.90) m/uL Hgb (13.0-17.5) gm/dL Hct (39.0-53.0) % MCV (80.0-100.0) fL MCH (25.0-35.0) pg MCHC (31.0-37.0) g/dL RDW (11.5-15.5) % Plt Count (150-450) k/uL Neutrophils % % Lymphocytes % % Monocytes % % Eosinophils % % Basophils % % Neutrophils # (1.3-7.7) k/uL Lymphocytes # (1.0-4.8) k/uL Monocytes # (0-1.0) k/uL Eosinophils # (0-0.7) k/uL Basophils # (0-0.2) k/uL Macrocytosis PT 32.3 H (9.0-12.0) sec INR 3.4 H (<1.2) APTT 40.1 H (22.0-30.0) sec Sodium (137-145) mmol/L Potassium (3.5-5.1) mmol/L Chloride (98-107) mmol/L Carbon Dioxide (22-30) mmol/L Anion Gap mmol/L BUN (9-20) mg/dL Creatinine (0.66-1.25) mg/dL Est GFR (CKD-EPI)AfAm (>60 ml/min/1.73 sqM) Est GFR (CKD-EPI)NonAf (>60 ml/min/1.73 sqM) Glucose (74-99) mg/dL Calcium (8.4-10.2) mg/dL Magnesium (1.6-2.3) mg/dL Total Bilirubin (0.2-1.3) mg/dL AST (17-59) U/L ALT (21-72) U/L Alkaline Phosphatase (38-126) U/L Total Creatine Kinase (55-170) U/L CK-MB (CK-2) (0.0-2.4) ng/mL CK-MB (CK-2) Rel Index Troponin I (0.000-0.034) ng/mL NT-Pro-B Natriuret Pep 202 pg/mL Total Protein (6.3-8.2) g/dL Albumin (3.5-5.0) g/dL Urine Color Light Yellow Urine Appearance Cloudy (Clear) Urine pH 6.5 (5.0-8.0) Ur Specific [place] 1.004 (1.001-1.035) Urine Protein Trace H (Negative) Urine Glucose (UA) Negative (Negative) Urine Ketones Negative (Negative) Urine Blood Trace H (Negative) Urine Nitrite Positive (Negative) Urine Bilirubin Negative (Negative) Urine Urobilinogen <2.0 (<2.0) mg/dL Ur Leukocyte Esterase Large H (Negative) Urine RBC 3 (0-5) /hpf Urine WBC 47 H (0-5) /hpf Urine WBC Clumps Moderate H (None) /hpf Ur Squamous Epith Cells <1 (0-4) /hpf Hyaline Casts 2 (0-2) /lpf Disposition Clinical Impression: Acute respiratory failure with hypoxia Disposition: ADMITTED IP TO THIS HOSP Condition: Fair Referrals: Hindy,Ernst, MD [Primary Care Provider] - 1-2 days Time of Disposition: 20:27
[2018-07-23 16:38] LABS: Basophils % (A) 0 %; Eosinophils % (A) 1 %; HCT 42.4 % (39.0-53.0); HGB 13.5 gm/dL (13.0-17.5); Lymphocytes # (A) 0.9 k/uL (1.0-4.8); Lymphocytes % (A) 18 %; MCH 32.3 pg (25.0-35.0); MCHC 31.8 g/dL (31.0-37.0); MCV 101.7 fL (80.0-100.0); Macrocytosis Slight; Mean Platelet Volume 7.2; Monocytes # (A) 0.3 k/uL (0-1.0); Monocytes % (A) 5 %; Neutrophils # (A) 3.7 k/uL (1.3-7.7); Neutrophils % (A) 74 %; Platelet Count 168 k/uL (150-450); RBC 4.17 m/uL (4.30-5.90)
[2018-07-23 16:45] LABS: Appearance,Urine Cloudy (Clear); Bilirubin,Urine Negative (Negative); Blood,Urine Trace (Negative); Color,Urine Light Yellow; Glucose,Urine (UA) Negative (Negative); Hyaline Casts,Urine 2 /lpf (0-2); Ketones,Urine Negative (Negative); Leukocyte Esterase,Urine Large (Negative); Nitrite,Urine Positive (Negative); PH, Urine 6.5 (5.0-8.0); Protein,Urine Trace (Negative); RBC,Urine 3 /hpf (0-5); Specific Gravity,Urine 1.004 (1.001-1.035); Squamous Epithelial Cell,Urine <1 /hpf (0-4); Urobilinogen,Urine <2.0 mg/dL (<2.0)
[2018-07-23 16:47] LABS: INR 3.4 (<1.2); Partial Thromboplastin Time 40.1 sec (22.0-30.0); Prothrombin Time 32.3 sec (9.0-12.0)
[2018-07-23 16:58] LABS: ALT 35 U/L (21-72); AST 29 U/L (17-59); Albumin 3.4 g/dL (3.5-5.0); Alkaline Phosphatase 84 U/L (38-126); Anion Gap 6 mmol/L; Blood Urea Nitrogen 18 mg/dL (9-20); Calcium 9.3 mg/dL (8.4-10.2); Carbon Dioxide 28 mmol/L (22-30); Chloride 101 mmol/L (98-107); Glucose 98 mg/dL (74-99); Magnesium 1.9 mg/dL (1.6-2.3); Potassium 4.4 mmol/L (3.5-5.1); Sodium 135 mmol/L (137-145); Total Bilirubin 0.6 mg/dL (0.2-1.3); Total Protein 6.1 g/dL (6.3-8.2)
[2018-07-23 17:02] LABS: Creatine Kinase 33 U/L (55-170)
[2018-07-23 17:15] LABS: Creatine Kinase MB 2.4 ng/mL (0.0-2.4); Troponin I <0.012 ng/mL (0.000-0.034)
--- NOTE | 2018-07-23 17:36 | XR ---
EXAMINATION TYPE: XR chest 2V DATE OF EXAM: 07/23/2018 COMPARISON: 07/08/2018 HISTORY: Hypoxemia TECHNIQUE: Frontal and lateral views of the chest are obtained. FINDINGS: There is poor inspiration and atelectasis at the lung bases. There is interposition of the hepatic flexure of the colon. There is thoracic mild kyphotic deformity. There is no heart failure. Thoracic aorta is atheromatous. There is elevated left and right diaphragm. IMPRESSION: There is increased atelectasis at the lung bases compared to last exam. No heart failure .
[2018-07-23] MEDS ORDERED: NALOXONE 0.4 MG/ML 10 ML VIAL IVP PRN (17:48)
[2018-07-23] MEDS ORDERED: NALOXONE 0.4 MG/ML 10 ML VIAL IVP STA (17:49)
[2018-07-23] MEDS ORDERED: RX INFO: IV CONTRAST WAS GIVEN 1 EACH MISC MISCELLANE PRN (18:01)
--- NOTE | 2018-07-23 19:05 | CT ---
EXAMINATION TYPE: CT brain wo con DATE OF EXAM: 07/23/2018 COMPARISON: 07/03/2018 HISTORY: Shortness of breath. Low O2 when laying flat. CT DLP: 1035.4 mGycm Automated exposure control for dose reduction was used. FINDINGS: There is cerebral cortical atrophy. There is no mass effect nor midline shift. There is no sign of in tracranial hemorrhage. There is irregular frontal horn left lateral ventricle that could relate to ol d infarct. There is some aneurysmal ectasia of the intracranial internal carotid arteries and the pro ximal middle cerebral arteries. IMPRESSION: ANEURYSMAL CHANGES. 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 NO MORALES E COMPARED TO OLD EXAM.
--- NOTE | 2018-07-23 19:09 | CT ---
EXAMINATION TYPE: CT chest w con DATE OF EXAM: 07/23/2018 COMPARISON: None HISTORY: Shortness of breath. Low O2 when laying flat. CT DLP: 379.9 mGycm Automated exposure control for dose reduction was used. CONTRAST: CT scan of the chest is performed with IV Contrast, patient injected with 100ml mL of Isovue 300. FINDINGS: There is some patchy atelectasis at the lung bases. Heart is enlarged. There is no mediastinal adenop athy. There are no hilar masses. Thoracic aorta shows no evidence of aneurysm or dissection. Ascendin g aorta measures 3.8 cm. There is thoracic kyphotic deformity with anterior wedging of T6 vertebra. There are multiple calcified gallstones. IMPRESSION: Mild cardiomegaly. Fibrotic changes and atelectasis at the lung bases.
[2018-07-23] MEDS ORDERED: ACETAMINOPHEN TAB 325 MG TAB PO PRN (20:27)
[2018-07-23] MEDS ORDERED: ONDANSETRON 4 MG/2 ML VIAL IVP PRN (20:27)
[2018-07-23] MEDS ORDERED: NALOXONE 0.4 MG/ML 1 ML VIAL IV PRN (20:27)
[2018-07-23] MEDS: SODIUM CHLORIDE 0.9% 1,000 ML IV SCH (20:37)
[2018-07-23] MEDS ORDERED: LOPERAMIDE 2 MG CAP PO PRN (23:31)
[2018-07-23] MEDS ORDERED: CALCIUM CARBONATE 500 MG CHEWABLE PO PRN (23:31)
[2018-07-23] MEDS ORDERED: NA PHOS,M-B/NA PHOS,DI-BA 133 ML ENEMA RECTAL PRN (23:31)
[2018-07-23] MEDS ORDERED: MAGNESIUM HYDROXIDE 2,400 MG/10 ML CUP PO PRN (23:31)
[2018-07-23 23:41] VITALS: RESP 20
[2018-07-24 05:40] VITALS: BP 130/89; PULSE 97; TEMP 96.8
[2018-07-24] MEDS ORDERED: METOPROLOL TARTRATE 25 MG TAB PO SCH (09:00)
[2018-07-24] MEDS ORDERED: CRANBERRY 425 MG PO SCH (09:00)
[2018-07-24] MEDS ORDERED: WARFARIN 1 MG TAB PO SCH (09:00)
[2018-07-24] MEDS ORDERED: CHOLECALCIFEROL 400 UNIT TAB PO SCH (09:00)
[2018-07-24] MEDS ORDERED: CYANOCOBALAMIN 500 MCG TAB PO SCH (09:00)
[2018-07-24] MEDS ORDERED: LORATADINE 10 MG TAB PO SCH (09:00)
[2018-07-24 09:33] LABS: INR 4.7 (<1.2); Prothrombin Time 45.7 sec (9.0-12.0)
[2018-07-24] MEDS ORDERED: MULTIVITAMINS, THERA 1 EACH TAB PO SCH (12:00)
[2018-07-24] MEDS: SODIUM CHLORIDE 0.9% 1,000 ML IV SCH (12:15)
[2018-07-24] MEDS ORDERED: WARFARIN 0.5 MG TAB PO ONE (18:00)
--- NOTE | 2018-07-25 08:17 | DS ---
DISCHARGE SUMMARY HISTORY AND PHYSICAL AND DISCHARGE SUMMARY: DATE OF ADMISSION: 07/23/2018 DATE OF DISCHARGE: 07/24/2018 DATE OF SERVICE: 07/24/2018 PRESENTING COMPLAINT: Lethargic. HISTORY OF PRESENTING COMPLAINT: This is an 82-year-old patient who follows with Dr. Loo, resident of adult foster snf, [facility]. 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 Often times he requires a Dhaval lift. The patient has got some function in the right hand. The patient does use a wheelchair with that. The patient is incontinent of bowel and urine. The patient is AO x3. Patient yesterday was given a shave and the face became flushed and red and the staff decided to give the patient Benadryl. The patient became rather lethargic and sleepy after that. Hence, the patient was brought down to the ER and the EMS had reported some hypoxia when the patient was laying flat. Subsequently, the patient has turned around back to his normal self. The patient's daughter did visit today. The patient has been eating well and feels pretty much back to his normal self now. The patient did have a CT scan of the brain in the ER that showed some old changes. REVIEW OF SYSTEMS: CONSTITUTIONAL: Tired. HEENT: None. RESPIRATORY: None CARDIOVASCULAR: None. GASTROINTESTINAL: Incontinence. GENITOURINARY: Incontinence. MUSCULOSKELETAL: None. HEMATOLOGICAL: None. LYMPHATICS: None. PSYCHIATRY: None. NEUROLOGICAL: Weakness in both lower extremities. PAST MEDICAL HISTORY: Hypertension, work related accident leading to quadriplegia, some function in the right hand. PAST SURGICAL HISTORY: Suprapubic catheter. Has internal pump for baclofen in the abdomen. SOCIAL HISTORY: Does not smoke or drink alcohol. Lives at an adult foster care called [facility]. The patient's daughter is the POA. FAMILY HISTORY: Mother of sepsis, age of 20. HOME MEDICATIONS: 1. Fleets 130 mL daily p.r.n. 2. Milk of magnesia 25 mg daily p.r.n. 3. Imodium 2 mg p.o. q.i.d. p.r.n. 4. Tylenol 650 mg p.o. q.4 p.r.n. 5. Benadryl 25 mg q.6h p.r.n. 6. Coumadin 1 mg p.o. daily. 7. Tums 1000 mg p.o. q.i.d. 8. Multivitamin 1 tablet p.o. daily. 9. Lopressor 12.5 p.o. b.i.d. 10.Vitamin B12 1000 mcg p.o. daily. 11.Vitamin D3 400 units p.o. daily. 12.Claritin 10 mg p.o. daily. 13.Cranberry 425 mg p.o. b.i.d. ALLERGIES: ADHESIVE, CEPHALOSPORIN, CIPRO, NSAIDS, PENICILLIN, QUINOLONE, SULFA. PHYSICAL EXAMINATION: Vital signs on presentation, afebrile, pulse 50, respiration 16, blood pressure 133/92, pulse ox 91 percent on 2 L. GENERAL APPEARANCE: Average built, sitting up, awake, eating his food. EYES: Pupils equal. Conjunctivae normal. HEENT: External appearance of ears and nose normal. Oral cavity normal. NECK: JVD not raised. Mass not palpable. Respiratory effort normal. LUNGS: Fair air entry. CARDIOVASCULAR: 1st and 2nd sounds normal. No edema. ABDOMEN: Soft, nontender. Liver and spleen not palpable. Suprapubic catheter in place. Liver and spleen not palpable. LYMPHATIC: No lymph node palpable in neck or axilla. PSYCHIATRY: Alert and oriented x3. Mood and affect normal. NEUROLOGICAL: Pupils equal. No facial asymmetry. Some movement in the right arm. Left arm is contracted. The patient has sensation in both legs, is able to move his feet. INVESTIGATIONS: White count 5, hemoglobin 13.5, INR 3.4 on admission, potassium 4.4, BUN and creatinine is normal. His UA showing leuko esterase and WBC. EKG tracing personally reviewed by me has normal sinus rhythm. CT scan of the chest shows patchy atelectasis, some anterior wedging of the T6 vertebra, calcified gallstones. CT scan of the brain, some aneurysmal changes, old lacunar infarct, left frontal lobe. Chest x-ray film personally reviewed by me, an expiratory film showed with increased atelectasis. ASSESSMENT: 1. Acute hypoxic respiratory failure on presentation due to the patient getting Benadryl. The patient already takes Claritin causing respiratory suppression, which improved as the Benadryl wore off. 2. Acute metabolic encephalopathy, drug-induced from Benadryl. 3. Essential hypertension. 4. Chronic quadriplegia with some function of the right arm. 5. Neurogenic bladder with chronic suprapubic catheter. 6. Asymptomatic bacteriuria. The patient has got no fever. No urinary symptoms. No white count. PLAN: Patient has come back to his baseline, doing well. Patient's troponin also was negative, did not have any chest pain. The patient will go back to his A[facility]. The Benadryl should be discontinued as patient is already taking Claritin and per the nurse the patient is also back to his baseline. Home medications to continue except for Benadryl. MMODL / IJN: [id number] /
== END 2018-07-24 15:53 | disposition home or self-care (01) ==
LOC: EC 15:47 → 4MS4W 20:29
PROVIDERS: ADMIT Hospitalist; ATTEND Hospitalist
DX: J96.01 Acute respiratory failure with hypoxia (principal); G92 Toxic encephalopathy; T45.0X5A Adverse effect of antiallergic and antiemetic drugs, initial encounter; Y92.129 Unspecified place in nursing home as the place of occurrence of the external cause; I10 Essential (primary) hypertension; G82.50 Quadriplegia, unspecified; N31.9 Neuromuscular dysfunction of bladder, unspecified; R15.9 Full incontinence of feces; R82.71 Bacteriuria; Z88.0 Allergy status to penicillin; Z79.01 Long term (current) use of anticoagulants; Z88.2 Allergy status to sulfonamides; Z88.1 Allergy status to other antibiotic agents; Z88.8 Allergy status to other drugs, medicaments and biological substances; Z93.59 Other cystostomy status; Z16.12 Extended spectrum beta lactamase (ESBL) resistance; Z96.89 Presence of other specified functional implants; Z74.01 Bed confinement status; Z79.899 Other long term (current) drug therapy; Z91.048 Other nonmedicinal substance allergy status
CPT/HCPCS: 96361; 96374; 99285; 36415; 93005; 83880; 80053; 82550; 82553; 83735; 84484; 85025; 85610 ×2; 85730; 81001; 87086; 87077; 87186; 71046; 70450; 71260; G0378 ×2; J2310; Q9967

== ENCOUNTER 2018-09-17 09:55 | Day surgery (SDC) | payer MEDICARE ==
[2018-09-17] MEDS ORDERED: AZTREONAM 2 GM in SODIUM CHLORIDE 0.9% 100 ML IVPB STA (13:10)
== END 2018-09-17 15:30 | disposition home or self-care (01) ==
LOC: CATHCVL 09:55
PROVIDERS: ATTEND Internal Medicine Infectious Disease
DX: N39.0 Urinary tract infection, site not specified (principal)
CPT/HCPCS: 36410; 76937; C1751

== ENCOUNTER 2018-09-18 13:15 | Inpatient (IN) | payer MEDICARE, OTHER ==
[2018-09-18] MEDS ORDERED: SODIUM CHLORIDE 0.9% 1,000 ML IV STA ×2 (13:31→15:28)
[2018-09-18] MEDS ORDERED: SODIUM CHLORIDE 0.9% 500 ML 500 ML IV STA ×2 (13:31→15:28)
--- NOTE | 2018-09-18 13:31 | ED ---
Chest Pain HPI - General Stated Complaint: Chest Pain Time Seen by Provider: 09/18/18 13:22 Source: RN notes reviewed, old records reviewed - History of Present Illness Initial Comments: This is an 80-year-old male the ER for evaluation. Presents today for evaluation regarding shortness of breath cough and difficulty breathing, hypoxia per a [address] [place] [address] facility. Patient lives today for care facility secondary quadriplegia secondary to neck injury. Patient himself is also complaining of chest pain. Family states patient was started on aztreonam yesterday for urinary check infections to a PICC line MD Complaint: chest pain, other (Shortness of breath and congestion) -: days(s) (2) Onset: during rest Pain Location: substernal Pain Radiation: none Severity: moderate Severity scale (1-10): 6 (Shortness of breath) Quality: aching Consistency: constant Improves With: nothing Worsens With: nothing Context: recent illness (uti) Anginal Symptoms: dyspnea Other Symptoms: cough Treatments Prior to Arrival: none - Related Data Home Medications Medication Instructions Recorded Confirmed Acetaminophen Tab [Tylenol] 650 mg PO Q4H PRN 07/03/18 09/18/18 Calcium Carbonate [Tums] 1,000 mg PO QID PRN 07/03/18 09/18/18 Cholecalciferol [Vitamin D3] 400 unit PO DAILY 07/03/18 09/18/18 Cranberry 425mg 425 mg PO BID 07/03/18 09/18/18 Loperamide [Imodium] 2 mg PO QID PRN 07/03/18 09/18/18 Loratadine [Claritin] 10 mg PO DAILY 07/03/18 09/18/18 Magnesium Hydroxide [Milk of 2,400 mg PO DAILY PRN 07/03/18 09/18/18 Magnesia] Metoprolol Tartrate [Lopressor] 12.5 mg PO BID 07/03/18 09/18/18 Multivitamins, Thera [Multivitamin 1 tab PO DAILY 07/03/18 09/18/18 (formulary)] Na Phos,M-B/Na Phos,Di-Ba [Fleet 133 ml RECTAL DAILY PRN 07/03/18 09/18/18 Adult] Warfarin [Coumadin] 1 mg PO MOTUWETHFR 07/03/18 09/18/18 Acetaminophen Tab [Tylenol Tab] 650 mg PO Q4H PRN 09/18/18 09/18/18 Beneprotein Powder 7 gm PO BID 09/18/18 09/18/18 Bisacodyl [Dulcolax] 10 mg RECTAL DAILY PRN 09/18/18 09/18/18 Levothyroxine Sodium [Synthroid] 25 mcg PO DAILY 09/18/18 09/18/18 guaiFENesin SYRUP 100MG/5ML 200 mg PO DIRECTED PRN 09/18/18 09/18/18 [Robitussin] Allergies Allergy/AdvReac Type Severity Reaction Status Date / Time adhesive AdvReac Rash/Hives Verified 09/18/18 13:54 Cephalosporins AdvReac Unknown Verified 09/18/18 13:54 ciprofloxacin AdvReac Rash/Hives Verified 09/18/18 13:54 NSAIDS (Non-Steroidal AdvReac Unknown Verified 09/18/18 13:54 Anti-Inflamma Penicillins AdvReac Nausea & Verified 09/18/18 13:54 Vomiting Quinolones AdvReac Unknown Verified 09/18/18 13:54 Sulfa (Sulfonamide AdvReac Rash/Hives Verified 09/18/18 13:54 Antibiotics) Review of Systems ROS Statement: Those systems with pertinent positive or pertinent negative responses have been documented in the HPI. ROS Other: All systems not noted in ROS Statement are negative. EKG Findings - EKG Comments: EKG Findings:: EKG shows junctional rhythm at 77, QRS 66, QTc 457 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 Date of last positivie culture/infection: 07/03/18 MDRO Source:: URINE Past Surgical History: Orthopedic Surgery Additional Past Surgical History / Comment(s): Placement of suprapubic catheter r/t accident 2002, has internal pump with baclofen in abdomen Past Anesthesia/Blood Transfusion Reactions: No Reported Reaction Past Psychological History: No Psychological Hx Reported Smoking Status: Never smoker Past Alcohol Use History: None Reported Past Drug Use History: None Reported - Past Family History Mother History Unknown: Yes Additional Family Medical History / Comment(s): Mother at age 20 of sepsis General Exam Limitations: altered mental status General appearance: alert, anxious, lethargic, in distress Head exam: Present: atraumatic, normocephalic, normal inspection Eye exam: Present: normal appearance, PERRL, EOMI. Absent: scleral icterus, conjunctival injection, periorbital swelling ENT exam: Present: normal exam, mucous membranes moist Neck exam: Present: normal inspection. Absent: tenderness, meningismus, lymphadenopathy Respiratory exam: Present: respiratory distress, rhonchi, accessory muscle use, decreased breath sounds, prolonged expiratory. Absent: wheezes, rales, stridor Cardiovascular Exam: Present: regular rate, normal rhythm, normal heart sounds. Absent: systolic murmur, diastolic murmur, rubs, gallop, clicks GI/Abdominal exam: Present: soft, normal bowel sounds. Absent: distended, tenderness, guarding, rebound, rigid Extremities exam: Present: normal inspection, full ROM, normal capillary refill. Absent: tenderness, pedal edema, joint swelling, calf tenderness Back exam: Present: normal inspection Neurological exam: Present: alert, oriented X3, CN II-XII intact Psychiatric exam: Present: normal affect, normal mood Skin exam: Present: warm, dry, intact, normal color. Absent: rash Course Vital Signs 09/18/18 09/18/18 09/18/18 13:19 14:00 14:30 Temperature Pulse Rate 75 58 L 68 Respiratory 16 18 17 Rate Blood Pressure 111/78 103/69 98/64 O2 Sat by Pulse 96 97 98 Oximetry 09/18/18 15:15 Temperature 92.8 F L Pulse Rate Respiratory Rate Blood Pressure O2 Sat by Pulse Oximetry - Reevaluation(s) Reevaluation #1: 09/18/18 14:25 Record is reviewed Reevaluation #2: 09/18/18 14:25 Has history of UTI, he does have history of breathing issues, severe difficulty breathing is new - Consultations Consultation #1: Spoke to Dr. Davey who is acceptable of admission Chest Pain MDM - MDM 80 male the ER for evasive weakness and chest pain. Patient be admitted for monitoring of troponins, patient also continue IV antibiotics for both UTI and pneumonia Critical Care Time Critical Care Time: Yes Total Critical Care Time: 31 Disposition Clinical Impression: Urinary tract infection, Acute respiratory failure with hypoxia, Community acquired pneumonia, Coagulopathy, Hyponatremia Disposition: ADMITTED IP TO THIS HOSP Condition: Serious Is patient prescribed a controlled substance at d/c from ED?: No Referrals: Rustam Wesley MD [Primary Care Provider] - 1-2 days
--- NOTE | 2018-09-18 14:26 | XR ---
EXAMINATION TYPE: XR chest 2V DATE OF EXAM: 09/18/2018 COMPARISON: 07/23/2018 HISTORY: Weakness TECHNIQUE: Frontal and lateral views of the chest are obtained. FINDINGS: There is infiltrate and atelectasis at the lung bases. Thoracic aorta is atheromatous. The re are chest leads. There is poor inspiration. IMPRESSION: Lower lobe pulmonary infiltrates and atelectasis slightly worse than last exam.
[2018-09-18 14:38] LABS: ALT 42 U/L (21-72); AST 45 U/L (17-59); Alkaline Phosphatase 90 U/L (38-126); Anion Gap 11 mmol/L; Blood Urea Nitrogen 31 mg/dL (9-20); Calcium 8.6 mg/dL (8.4-10.2); Carbon Dioxide 23 mmol/L (22-30); Chloride 89 mmol/L (98-107); Glucose 79 mg/dL (74-99); Lipase 73 U/L (23-300); Magnesium 1.4 mg/dL (1.6-2.3); Potassium 4.4 mmol/L (3.5-5.1); Sodium 123 mmol/L (137-145); Total Bilirubin 0.6 mg/dL (0.2-1.3); Total Protein 5.5 g/dL (6.3-8.2)
[2018-09-18 14:49] LABS: Basophils % (A) 0 %; D-Dimer 0.37 mg/L FEU (<0.60); Eosinophils % (A) 1 %; HCT 35.4 % (39.0-53.0); HGB 11.6 gm/dL (13.0-17.5); Lymphocytes # (A) 0.2 k/uL (1.0-4.8); Lymphocytes % (A) 6 %; MCHC 32.8 g/dL (31.0-37.0); MCV 100.6 fL (80.0-100.0); Macrocytosis Slight; Mean Platelet Volume 7.9; Monocytes # (A) 0.2 k/uL (0-1.0); Monocytes % (A) 5 %; Neutrophils # (A) 3.5 k/uL (1.3-7.7); Neutrophils % (A) 87 %; Partial Thromboplastin Time 49.6 sec (22.0-30.0); Poikilocytosis Slight; Prothrombin Time 47.8 sec (9.0-12.0); RBC 3.52 m/uL (4.30-5.90); RDW 15.6 % (11.5-15.5)
[2018-09-18] MEDS ORDERED: MORPHINE SULFATE 4 MG/ML SYRINGE IV PRN (15:13)
[2018-09-18] MEDS ORDERED: NALOXONE 0.4 MG/ML 1 ML VIAL IV PRN (15:13)
[2018-09-18] MEDS ORDERED: IPRATROPIUM-ALBUTEROL 3 ML NEB INHALATION STA (15:13)
[2018-09-18 15:40] LABS: Glucose,Whole Blood 83 mg/dL (75-99)
[2018-09-18] MEDS: MAGNESIUM SULFATE-D5W PMX 1 GM in DEXTROSE/WATER 1 100ML.BAG IVPB SCH ×2 (16:00→17:17)
[2018-09-18] MEDS ORDERED: LOPERAMIDE 2 MG CAP PO PRN (16:03)
[2018-09-18 16:13] LABS: Platelet Count 75 k/uL (150-450)
[2018-09-18 16:18] LABS: Appearance,Urine Clear (Clear); Bacteria,Urine Rare /hpf; Bilirubin,Urine Negative (Negative); Blood,Urine Trace (Negative); Color,Urine Yellow; Glucose,Urine (UA) Negative (Negative); Granular Casts,Urine 1 /lpf (0); Hyaline Casts,Urine 5 /lpf (0-2); Ketones,Urine Negative (Negative); Leukocyte Esterase,Urine Large (Negative); Mucus,Urine Rare /hpf; Nitrite,Urine Positive (Negative); Protein,Urine 1+ (Negative); RBC,Urine 12 /hpf (0-5); Specific Gravity,Urine 1.016 (1.001-1.035); Urobilinogen,Urine <2.0 mg/dL (<2.0)
[2018-09-18] MEDS: IPRATROPIUM-ALBUTEROL 3 ML NEB INHALATION SCH ×2 (17:13→20:30)
[2018-09-18] MEDS: MEROPENEM 1 GM in SODIUM CHLORIDE 0.9% 100 ML IVPB SCH (17:17)
[2018-09-18 17:21] LABS: Glucose,Whole Blood 91 mg/dL (75-99)
--- NOTE | 2018-09-18 17:23 | P.HPIM ---
History of Present Illness H&P Date: 09/18/18 Chief Complaint: Shortness of breath, decreased oxygen saturation The patient is a 82-year-old male the past medical history of work- related quadriplegia who resides at adult foster care at [place] who was referred to the ER due to concerns of increased shortness of breath breathing and diminished oxygen saturation. Apparently began having difficulty breathing and has had a cough with noted difficulty clearing secretions becoming increasingly gargling in the last 2 days, at his residential solidity he was noted to have diminished oxygen saturation on room air, the patient has also been fatigued and weak and not as communicative as he typically is. Daughter who is present reports that at his baseline the patient is able to operate his wheelchair with his right hand and is typically able to feed himself but has been unable to do so today. The patient has a history of neurogenic bladder and has a supra pubic catheter, apparently he was recently diagnosed with a UTI and was scheduled to start on antibiotics with aztreonam, review of paperwork indic ates recent urinalysis with cultures suggest growth with Pseudomonas, E. coli and providencia. In the ER the patient had a comprehensive workup, he was noted to be afebrile and normotensive, but hypothermic. He had abnormal labs serum sodium 123, magnesium level I.4, serum lactate 2.2 PT INR 48/5 , Abnormal urinalysis with 12 RBCs and 18 WBCs, platelets 75,000. EKG showing junctional rhythm without any suggestion of acute ischemia, Chest x-ray was consistent with left lower lobe pulmonary infiltrates and atelectasis. He was started on Merrem, bronchodilator breathing treatment and received aggressive IV fluid hydration total of 3 L while in the ED and subsequently recommended for admission Review of Systems Pertinent positives per HPI all other review systems otherwise negative 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 Date of last positivie culture/infection: 07/03/18 MDRO Source:: URINE Past Surgical History: Orthopedic Surgery Additional Past Surgical History / Comment(s): Placement of suprapubic catheter r/t accident 2002, has internal pump with baclofen in abdomen Past Anesthesia/Blood Transfusion Reactions: No Reported Reaction Past Psychological History: No Psychological Hx Reported Smoking Status: Never smoker Past Alcohol Use History: None Reported Past Drug Use History: None Reported - Past Family History Mother History Unknown: Yes Additional Family Medical History / Comment(s): Mother at age 20 of sepsis Medications and Allergies Home Medications Medication Instructions Recorded Confirmed Type Acetaminophen Tab [Tylenol] 650 mg PO Q4H PRN 07/03/18 09/18/18 History Calcium Carbonate [Tums] 1,000 mg PO QID PRN 07/03/18 09/18/18 History Cholecalciferol [Vitamin D3] 400 unit PO DAILY 07/03/18 09/18/18 History Cranberry 425mg 425 mg PO BID 07/03/18 09/18/18 History Loperamide [Imodium] 2 mg PO QID PRN 07/03/18 09/18/18 History Loratadine [Claritin] 10 mg PO DAILY 07/03/18 09/18/18 History Magnesium Hydroxide [Milk of 2,400 mg PO DAILY PRN 07/03/18 09/18/18 History Magnesia] Metoprolol Tartrate [Lopressor] 12.5 mg PO BID 07/03/18 09/18/18 History Multivitamins, Thera [Multivitamin 1 tab PO DAILY 07/03/18 09/18/18 History (formulary)] Na Phos,M-B/Na Phos,Di-Ba [Fleet 133 ml RECTAL DAILY PRN 07/03/18 09/18/18 History Adult] Warfarin [Coumadin] 1 mg PO MOTUWETHFR 07/03/18 09/18/18 History Acetaminophen Tab [Tylenol Tab] 650 mg PO Q4H PRN 09/18/18 09/18/18 History Beneprotein Powder 7 gm PO BID 09/18/18 09/18/18 History Bisacodyl [Dulcolax] 10 mg RECTAL DAILY PRN 09/18/18 09/18/18 History Levothyroxine Sodium [Synthroid] 25 mcg PO DAILY 09/18/18 09/18/18 History guaiFENesin SYRUP 100MG/5ML 200 mg PO DIRECTED PRN 09/18/18 09/18/18 History [Robitussin] Allergies Allergy/AdvReac Type Severity Reaction Status Date / Time adhesive AdvReac Rash/Hives Verified 09/18/18 13:54 Cephalosporins AdvReac Unknown Verified 09/18/18 13:54 ciprofloxacin AdvReac Rash/Hives Verified 09/18/18 13:54 NSAIDS (Non-Steroidal AdvReac Unknown Verified 09/18/18 13:54 Anti-Inflamma Penicillins AdvReac Nausea & Verified 09/18/18 13:54 Vomiting Quinolones AdvReac Unknown Verified 09/18/18 13:54 Sulfa (Sulfonamide AdvReac Rash/Hives Verified 09/18/18 13:54 Antibiotics) Physical Exam Vitals: Vital Signs Temp Pulse Resp BP Pulse Ox 09/18/18 16:08 92.5 F L 09/18/18 16:05 80 09/18/18 16:00 83 14 103/57 100 09/18/18 15:54 75 09/18/18 15:30 79 14 109/62 95 09/18/18 15:15 92.8 F L 09/18/18 15:00 65 15 109/63 97 09/18/18 14:30 68 17 98/64 98 09/18/18 14:00 58 L 18 103/69 97 09/18/18 13:19 75 16 111/78 96 Intake and Output 09/18/18 09/18/18 09/18/18 06:59 14:59 22:59 Other: Weight 61.235 kg Constitutional: Mild distress, somnolent but arousable Eyes: Anicteric sclerae, moist conjunctiva, no lid-lag, PERRLA ENMT: NC/AT,Oropharynx clear, no erythema, exudates Neck:Supple, FROM, no masses, or JVD, No carotid bruits; No thyromegaly Lungs: Coarse upper airway sounds congested, gargly sounds Cardiovascular: Heart regular in rate and rhythm, No murmurs, gallops, or rubs no peripheral edema Abdominal: Soft Nontender, nom distended, no guarding, no rebound or rigidity, Normoactive bowel sounds No hepatomegaly, No splenomegaly, No palpable mass No abdominal wall hernia noted Skin: Normal temperature, tone, texture, turgor, No induration No subcutaneous nodules, No rash, lesions, No ulcers Extremities:No digital cyanosis No clubbing, Pedal pulses intact and symmetrical Radial pulses intact and symmetrical Normal gait and station, No calf tenderness Neuro: Weakness in all extremities, left upper extremity contracture Results CBC & Chem 7: 09/18/18 13:58 09/18/18 13:58 Labs: Abnormal Lab Results - Last 24 Hours (Table) 09/18/18 09/18/18 09/18/18 Range/Units 13:58 13:58 13:58 RBC 3.52 L (4.30-5.90) m/uL Hgb 11.6 L (13.0-17.5) gm/dL Hct 35.4 L (39.0-53.0) % MCV 100.6 H (80.0-100.0) fL RDW 15.6 H (11.5-15.5) % Plt Count 75 L D (150-450) k/uL Lymphocytes # 0.2 L (1.0-4.8) k/uL PT 47.8 H (9.0-12.0) sec INR 5.0 H (<1.2) APTT 49.6 H (22.0-30.0) sec Sodium 123 L (137-145) mmol/L Chloride 89 L (98-107) mmol/L BUN 31 H (9-20) mg/dL Plasma Lactic Acid Daniel (0.7-2.0) mmol/L Magnesium 1.4 L (1.6-2.3) mg/dL Total Protein 5.5 L (6.3-8.2) g/dL Albumin 3.0 L (3.5-5.0) g/dL Urine Protein (Negative) Urine Blood (Negative) Ur Leukocyte Esterase (Negative) Urine RBC (0-5) /hpf Urine WBC (0-5) /hpf Urine Bacteria (None) /hpf Hyaline Casts (0-2) /lpf Urine Mucus (None) /hpf 09/18/18 09/18/18 Range/Units 15:43 16:04 RBC (4.30-5.90) m/uL Hgb (13.0-17.5) gm/dL Hct (39.0-53.0) % MCV (80.0-100.0) fL RDW (11.5-15.5) % Plt Count (150-450) k/uL Lymphocytes # (1.0-4.8) k/uL PT (9.0-12.0) sec INR (<1.2) APTT (22.0-30.0) sec Sodium (137-145) mmol/L Chloride (98-107) mmol/L BUN (9-20) mg/dL Plasma Lactic Acid Daniel 2.2 H* (0.7-2.0) mmol/L Magnesium (1.6-2.3) mg/dL Total Protein (6.3-8.2) g/dL Albumin (3.5-5.0) g/dL Urine Protein 1+ H (Negative) Urine Blood Trace H (Negative) Ur Leukocyte Esterase Large H (Negative) Urine RBC 12 H (0-5) /hpf Urine WBC 18 H (0-5) /hpf Urine Bacteria Rare H (None) /hpf Hyaline Casts 5 H (0-2) /lpf Urine Mucus Rare H (None) /hpf Assessment and Plan (1) Sepsis Current Visit: Yes Status: Acute Code(s): A41.9 - SEPSIS, UNSPECIFIED ORGANISM SNOMED Code(s): 65357349 (2) Acute respiratory failure with hypoxia Current Visit: Yes Status: Acute Code(s): J96.01 - ACUTE RESPIRATORY FAILURE WITH HYPOXIA SNOMED Code(s): 22876179 (3) Pneumonia Current Visit: Yes Status: Acute Code(s): J18.9 - PNEUMONIA, UNSPECIFIED ORGANISM SNOMED Code(s): 091699608 (4) Urinary tract infection Current Visit: Yes Status: Acute Code(s): N39.0 - URINARY TRACT INFECTION, SITE NOT SPECIFIED SNOMED Code(s): 13258093 (5) Hyponatremia Current Visit: Yes Status: Acute Code(s): E87.1 - HYPO-OSMOLALITY AND HYPONATREMIA SNOMED Code(s): 62146717 (6) Coagulopathy Current Visit: Yes Status: Acute Code(s): D68.9 - COAGULATION DEFECT, UN SPECIFIED SNOMED Code(s): 32533662 (7) Hypomagnesemia Current Visit: Yes Status: Acute Code(s): E83.42 - HYPOMAGNESEMIA SNOMED Code(s): 976513025 (8) Thrombocytopenia Current Visit: Yes Status: Acute Code(s): D69.6 - THROMBOCYTOPENIA, UNSPECIFIED SNOMED Code(s): 455898375 Plan: The patient is admitted anticipated greater than 2 midnight stay with concern for sepsis with subsequent acute respiratory failure with hypoxia secondary to presumed pneumonia, previous diagnosed with multi-organism UTI Pseudomonas, Providencia and E. Coli. Patient is hemodynamically stable, normotensive not tachycardic but does have hypothermia with elevated serum lactate level of 2.2. ID has been consulted we will continue Merrem, obtain urine culture blood culture. We'll continue DuoNeb breathing treatments. We'll attempt to replace his magnesium and recheck, continue IV fluids 100 mL normal saline per hour. Given patient's coagulopathy increased INR previously on Coumadin will hold his Coumadin dose no signs of bleeding at this point, hence no need for reversal with vitamin K or FFP. We'll plan to consult pulmonary for further recommendations. Continue to follow patient's clinical course CODE STATUS: Full code Discussed plan of care with: Daughter/son-in-law and patient Anticipated discharge 3-5 days DVT prophylaxis SCDs:
--- NOTE | 2018-09-18 19:59 | CONS ---
CONSULTATION DATE OF SERVICE: 09/18/2018. REASON FOR CONSULTATION: Pneumonia UTI and antibiotic recommendation. HISTORY OF PRESENT ILLNESS: The patient is an 82-year-old male with a past medical history significant for paraplegia secondary to spinal cord injury. The patient did have a urinary retention requiring a suprapubic catheter placement. Did have a history of recurrent UTIs with multiple antibiotic allergies. The patient recently did have a urine culture done in outpatient setting with multiple pathogens, including Pseudomonas aeruginosa and Providencia. After the results were reviewed, we were able to arrange for outpatient IV Azactam 2 g q.24h which was started yesterday evening after the patient did get his midline. This morning the patient noted to have been getting worse clinically, he did have a gurgling sound and when the nurse came to administer antibiotics, recommended the patient be transferred to the ER for evaluation. The patient was noticed to be hypothermic with a temperature of 92 degrees Fahrenheit. The patient is currently lethargic and No nausea, vomiting reported by the nursing staff or the family present at bedside or any diarrhea. The patient workup in the ER so far including white count which was 4.0. UA was positive with leukocyte esterase and 15 WBC. A chest x-ray showing left lower lobe pneumonia. Cultures multiple antibiotic allergies. Infectious disease was consulted for further recommendation regarding antibiotic. REVIEW OF SYSTEMS: Positive points have been mentioned in HPI, the rest of the systems unable to obtain because the patient is currently lethargic and unable to provide any history. PAST MEDICAL HISTORY: Paraplegia secondary to spinal cord injury, history of recurrent UTI infection, hypertension, pneumonia. PAST SURGICAL HISTORY: Suprapubic catheter placement and pain pump placement. SOCIAL HISTORY: No history of smoking, drinking or drug use. Currently a resident of a shelter. FAMILY HISTORY: Mother of sepsis. ALLERGIES: CEPHALOSPORIN, CIPROFLOXACIN, PENICILLIN, QUINOLONES. MEDICATIONS: The patient is currently on DuoNeb, Dulcolax, vitamin D3, Lovenox, Synthroid, Imodium, Claritin, morphine sulfate, Theragran, and Coumadin. PHYSICAL EXAMINATION: Blood pressure is 103/57 with a pulse of 83, temperature 92.5. He is 100% 4 L nasal cannula. General description is an elderly male lying in bed in no distress. HEENT: Shows slight pallor. No scleral icterus. Oral mucosa membranes are dry. Neck trachea central. No thyromegaly. Lungs unlabored breathing with upper airway rhonchi. No wheeze. Heart S1, S2. Regular rate and rhythm. Abdomen soft, no tenderness. No guarding or rigidity. Extremities are no edema of the feet. Skin examination: No rash or mass palpable. Neurologic: The patient is currently lethargic. Orientation could not be determined. No neck rigidity. LABS: Hemoglobin 11.4, white count 4.0 with a BUN of 31, creatinine 0.74, sodium is 123 with liver enzymes normal. Urine is positive. Chest x-ray with left lower lobe infiltrate. DIAGNOSTIC IMPRESSION/PLAN: 1. Patient admitted to the hospital with hypothermia, significant change in his respiratory status with congested cough and upper airway rhonchi with evidence of left lower lobe pneumonia. The patient has been in and out of the hospital. Need to cover for resistant gram-negative pneumonia such as Pseudomonas aeruginosa. 2. Patient with positive urinalysis, likely a catheter associated urinary tract infection. Recent urine culture in outpatient setting with Pseudomonas and E coli. 3. Patient with multiple antibiotic allergies that will limit the number of antibiotics that could be safe to use. PLAN: 1. We will start the patient on meropenem 1 g q.12h empirically to cover for both UTI as well as pneumonia. 2. Change Wilcox catheter if has not been changed in the last week or so. 3. Try to obtain sputum for Gram stain culture and sensitivity. 4. We will follow up on clinical condition and culture to further adjust medication if needed. Thank you for this consultation. Family present at bedside. Their questions were answered. MMODL / IJN: [id number] / ROGERS
--- NOTE | 2018-09-18 20:05 | CONS ---
CONSULTATION PULMONARY CRITICAL CARE CONSULTATION: DATE OF CONSULTATION: September 18, 2018 This is an 80-year-old male who was sent to the emergency room for evaluation. He apparently sees a visiting physician at home. He has a history of quadriplegia from some sort of an injury, which occurred apparently in 2011. He apparently had a cervical spine fracture. Anyway, he apparently developed some shortness of breath, difficulty breathing, coughing. His saturations were apparently low and he was brought to the ER to be evaluated. In the emergency room, he was thought to have pneumonia based on chest x-ray and also urinary tract infection. He apparently has a history of resistant infections and sees Dr. Wynne and Infectious Disease. The patient apparently was started on aztreonam recently for a urinary infection through a PICC line. The patient himself could not give much of a history. He was apparently hypothermic in the emergency department. He was warmed there a bit. He is transferred up to the ICU. The patient is 82 years of age. He himself cannot really give much of a history. MEDICATIONS: His home medications are reviewed and they include Tylenol, TUMS, vitamin D3, cranberry, Imodium, Claritin, milk of magnesia, metoprolol, multivitamins, Fleet's enema, Coumadin, Beneprotein powder, Dulcolax, levothyroxine, guaifenesin syrup. ALLERGIES: ARE MULTIPLE AND INCLUDE ADHESIVE TAPE, CEPHALOSPORIN, CIPROFLOXACIN, NSAIDS, PENICILLIN, QUINOLONES AND SULFA ANTIBIOTICS. PAST MEDICAL HISTORY: Is apparently for hypertension. He apparently has a history of a cervical fracture leading to quadriplegia. He also has a history of extended spectrum beta lactamase producing infections. He is also status post suprapubic catheter and apparently had a pain pump placed in his abdomen for which he receives baclofen. In addition, the patient has a history of hypertension and hypothyroidism. He also takes Coumadin for unclear reasons. Other history is not documented in the record of the ER physician. SOCIAL HISTORY: Negative for tobacco use. Apparently denies any alcohol or illicit drug use. FAMILY HISTORY: Apparently positive for mother who at age 20 of sepsis. REVIEW OF SYSTEMS: CONSTITUTIONAL: Negative. NEUROLOGIC: Negative. HEENT: Negative. CARDIOVASCULAR: Chest pain. PULMONARY: Shortness of breath, low saturations. GI: Negative. : Negative. RHEUMATOLOGIC: Negative. IMMUNOLOGIC: Negative. ENDOCRINOLOGIC: Negative. DERMATOLOGIC: Negative. Current vital signs include a temperature 92.5, heart rate 80, respiratory rate 14, blood pressure 103/57, mean 72, 4 L saturation is 100%. Appears somewhat lethargic and sleepy. He does arouse. He has got flexion contractures of the upper extremities. HEENT examination is grossly unremarkable. NECK: Supple. Full range of motion. No neck vein distention. No adenopathy or thyromegaly. Cardiovascular examination reveals regular rhythm rate. Heart rate 80. S1, S2 normal. Heart sounds are distant. He has got gurgling lung sounds which obscure heart sounds. Lungs reveal some coarse bilateral rhonchi. Breath sounds are equal bilaterally. No wheezes. No crackles. ABDOMEN: Soft. He is noted to have a suprapubic catheter. Extremities are intact. They are atrophied. Skin without rash. Neurologic examination is difficult to assess. He does arouse. LABS: Reviewed. White count 4, hemoglobin 11.6, hematocrit 35.4, platelet count 75,000. PT 47.8, INR 5, PTT 49.6. Sodium 123, potassium 4.4, chloride 89, CO2 is 23, BUN and creatinine were 31 and 0.74. Lactic acid 2.2, magnesium 1.4. N terminal proBNP 437, albumin 3. Lipase 73. Urine shows 1+ protein, trace blood, nitrite was positive, LE was large positive. There were 12 RBCs, 18 WBCs, rare bacteria and some rare mucus. Chest x-ray shows bibasilar infiltrates. ASSESSMENT: 1. Rule out sepsis syndrome secondary to both pneumonia and multi-drug resistant urinary tract infection. 2. History of quadriplegia secondary to cervical fracture. 3. Status post suprapubic catheter insertion. 4. History of hypertension. 5. Hypothyroidism. 6. Possible aspiration syndrome. 7. History of degenerative joint disease. 8. History of polycystic kidney disease. 9. History of peripheral neuropathy. 10.Hypothermia secondary to sepsis. 11.Mild anemia. 12.Thrombocytopenia. 13.Coumadin induced coagulopathy. 14.Hyponatremia. PLAN: The patient's medications are reviewed. Additional labs will be drawn. We will get the patient back on the appropriate antibiotics. We will consult Infectious Disease. He apparently had some sort of relationship with Dr. Wynne in Infectious Disease. He apparently was recently started on aztreonam. Additional recommendations and suggestions are forthcoming. He has multiple antibiotic allergies. We will follow. We will warm the patient. We will fluid resuscitate the patient. JOSSY / TREVORN: [id number] / MTDD
[2018-09-18] MEDS: AZTREONAM 1 GM in SODIUM CHLORIDE 0.9% 50 ML IVPB SCH (20:13)
[2018-09-19] MEDS: MEROPENEM 1 GM in SODIUM CHLORIDE 0.9% 100 ML IVPB SCH ×4 (00:05→23:25)
[2018-09-19] MEDS: guaiFENesin 600 MG TABLET.ER PO SCH ×3 (00:15→20:20)
[2018-09-19 05:30] LABS: MCH 33.2 pg (25.0-35.0); MCHC 33.2 g/dL (31.0-37.0); MCV 99.9 fL (80.0-100.0); Macrocytosis Slight; Mean Platelet Volume 8.3; Poikilocytosis Slight; RDW 15.5 % (11.5-15.5); WBC 6.5 k/uL (3.8-10.6)
[2018-09-19 05:40] LABS: Platelet Count 75 k/uL (150-450)
[2018-09-19 06:06] LABS: ALT 36 U/L (21-72); AST 46 U/L (17-59); Albumin 2.4 g/dL (3.5-5.0); Alkaline Phosphatase 72 U/L (38-126); Anion Gap 7 mmol/L; Blood Urea Nitrogen 25 mg/dL (9-20); Carbon Dioxide 20 mmol/L (22-30); Chloride 98 mmol/L (98-107); Glucose 61 mg/dL (74-99); Magnesium 1.8 mg/dL (1.6-2.3); Phosphorus 2.2 mg/dL (2.5-4.5); Potassium 4.9 mmol/L (3.5-5.1); Sodium 125 mmol/L (137-145); Total Bilirubin 0.4 mg/dL (0.2-1.3); Total Protein 4.8 g/dL (6.3-8.2)
[2018-09-19 06:07] LABS: Band Neutrophils % 17 %; Lymphocytes # (M) 0.07 k/uL (1.0-4.8); Monocytes # (M) 0.13 k/uL (0-1.0); Neutrophils % (M) 80 %; Nucleated Red Blood Cells 0 /100 WBC (0-0); Total Cells Counted 200
[2018-09-19] MEDS ORDERED: Phosphorus Replacement Protoco 1 EACH MISC MISCELLANE PRN (06:08)
[2018-09-19] MEDS ORDERED: Magnesium Replacement Protocol 1 EACH MISC MISCELLANE PRN (06:09)
[2018-09-19] MEDS ORDERED: SODIUM PHOSPHATE 10 MMOL in SODIUM CHLORIDE 0.9% 250 ML IVPB ONE (06:30)
[2018-09-19] MEDS ORDERED: LEVOTHYROXINE 25 MCG TAB PO SCH (06:30)
[2018-09-19] MEDS: MAGNESIUM SULFATE-D5W PMX 1 GM in DEXTROSE/WATER 1 100ML.BAG IVPB SCH ×2 (06:41→08:35)
[2018-09-19] MEDS ORDERED: DEXTROSE 50%-WATER 50 ML SYRINGE IVP STA ×2 (06:58→12:22)
[2018-09-19 06:59] LABS: Glucose,Whole Blood 62 mg/dL (75-99)
[2018-09-19 07:38] LABS: Glucose,Whole Blood 110 mg/dL (75-99)
[2018-09-19] MEDS: IPRATROPIUM-ALBUTEROL 3 ML NEB INHALATION SCH ×4 (07:50→20:31)
--- NOTE | 2018-09-19 08:07 | XR ---
EXAMINATION TYPE: XR chest 1V DATE OF EXAM: 09/19/2018 COMPARISON: Prior chest x-ray 09/18/2018 HISTORY: Pneumonia, abnormal chest x-ray, fluid status TECHNIQUE: Single frontal view of the chest is obtained. FINDINGS: Patient is rotated. Interstitium is increased. There are areas of probable atelectasis or scarring. Heart size is likely stable. No evident pneumothorax. Patchy basilar density persists. IMPRESSION: Findings are similar to prior exam. Correlate for interstitial edema, pneumonia versus b asilar atelectasis, follow-up recommended.
[2018-09-19] MEDS ORDERED: LORATADINE 10 MG TAB PO SCH (09:00)
[2018-09-19] MEDS ORDERED: ENOXAPARIN 40 MG/0.4 ML SYRINGE SQ SCH (09:00)
[2018-09-19] MEDS: AZTREONAM 1 GM in SODIUM CHLORIDE 0.9% 50 ML IVPB SCH ×2 (09:59→20:22)
[2018-09-19] MEDS: PANTOPRAZOLE 40 MG/10 ML VIAL IVP SCH (10:00)
--- NOTE | 2018-09-19 10:09 | PN ---
PROGRESS NOTE This is a progress note dated September 19, 2018. This is an 82-year-old male 82-year-old male who we saw yesterday in consultation. He presented to the emergency room for evaluation. He has a history of quadriplegia from a cervical spine injury back many years ago. The patient apparently developed shortness of breath and difficulty breathing and was admitted with a diagnosis of possible UTI/sepsis as well as possible pneumonia. Currently, he is doing a bit better. The patient is much more awake and alert. He was quite hypothermic yesterday. The patient was warmed. He has seen Dr. Wynne in Infectious Disease. We started him on both Merrem and Azactam. The patient is currently on AIRVO at 50 L/minute and an FiO2 estimated to be 85%. His saturations are 95-98 percent and the saturations on the AIRVO can be reduced. He is getting saline at 100 mL an hour in addition to his antibiotics. He is somewhat awake and alert. He is better than he was yesterday. He was admitted to the hospital service. He sees a visiting physician typically. Current vital signs are reviewed. His temperature is heart rate 106, respiratory rate 24, blood pressure 118/67, mean 84 and saturations are 95%-98% Appears mildly tachypneic and dyspneic. No audible wheezing. No shireen respiratory distress. No use of accessory muscles. HEENT examination is grossly unremarkable. The AIRVO device is noted. Neck is supple. Full range of motion. No adenopathy or thyromegaly. Neck veins are flat. Cardiovascular examination reveals tachycardia. S1, S2 normal. Heart rate 106. No murmur. Lungs reveal coarse inspiratory and expiratory rhonchi. No wheezes. No crackles. Breath sounds are coarse but equal bilaterally. Abdomen is soft. Extremities are intact. He does have some flexion contractures and some atrophy of the lower extremities. Skin without rash. Neurologic examination is difficult to assess but appears to be back at baseline. X-RAY: Shows some diffuse bilateral infiltrates. There may be some basilar atelectasis. There is some patchy densities which persist. There may be a mild fluid overload. LABS: Reviewed. White count 6.5, hemoglobin 11, hematocrit 33.0, platelet count 75,000. Sodium 125, potassium 4.9, chloride 98, CO2 20, anion gap is 7, BUN and creatinine 25 and 0.79. Calcium is 8, phosphorus 2.2. TSH is normal. Microbiologic studies including sputum and urine are so far negative. Medications are reviewed. The patient is on meropenem and aztreonam as antibiotics. He is also getting updraft treatments. ASSESSMENT: 1. Sepsis syndrome, secondary to both pneumonia and multi-drug resistant urinary tract infection, currently on meropenem and Azactam. 2. History of quadriplegia secondary to cervical fracture. 3. Status post suprapubic catheter insertion with chronic urinary tract infection. 4. History of hypertension. 5. Hypothyroidism. 6. Possible aspiration syndrome with secondary pneumonia. 7. History of degenerative joint disease. 8. History of polycystic kidney disease. 9. Peripheral neuropathy. 10.Hypothermia secondary to sepsis, resolved. 11.Mild anemia. 12.Thrombocytopenia. 13.Coumadin induced coagulopathy. 14.Hyponatremia. 15.Acute hypoxemic respiratory failure. PLAN: The patient remains critical. He remains on the AIRVO at 50 L/minute with an estimated FiO2 of 85%. Saturations are mid 90s. We will see if we cannot wean down the FiO2. The patient remains on 2 antibiotics in form of meropenem and aztreonam. He has seen Dr. Wynne in the past. So far urine and blood and sputum cultures are all negative. We will continue to follow. The patient remains critically ill. He may need to be intubated. We are hoping we can prevent that. Head of bed elevated. Aspiration precautions. He will have a swallow evaluation. We will hold off giving him anything substantial to eat by mouth at this time. Additional recommendations and suggestions are forthcoming. Critical care time is 33 minutes. MMODL / IJN: [id number] / MTDD
[2018-09-19] MEDS: MULTIVITAMINS, THERA 1 EACH TAB PO SCH (10:28)
[2018-09-19] MEDS: CHOLECALCIFEROL 400 UNIT TAB PO SCH (10:28)
[2018-09-19] MEDS ORDERED: LEVOTHYROXINE IVP 100 MCG/5 ML VIAL IV SCH ×2 (10:30→11:45)
[2018-09-19] MEDS: DEXTROSE 5%-0.9% NACL 1,000 ML IV SCH ×2 (12:17→23:25)
[2018-09-19 12:21] LABS: Glucose,Whole Blood 63 mg/dL (75-99)
[2018-09-19 12:45] LABS: Glucose,Whole Blood 130 mg/dL (75-99)
--- NOTE | 2018-09-19 13:15 | P.PN ---
Subjective Progress Note Date: 09/19/18 Patient seen and examined at bedside, somnolent but arousable. Minimally conversive, discussed plan of care with his daughter and son-in-law. The patient currently on AirVO2 at 50 L approx 50% FiO2. Patient continues to be guardedly concern for aspiration patient made nothing by mouth, speech therapy c onsulted yesterday and will see patient tomorrow, mild hypo-glycemia switch fluids to D5 NS. Patient afebrile, hypothermia has resolved continues on IV antibiotics with aztreonam and meropenem Objective - Vital Signs Vital signs: Vital Signs Temp 97.6 F 09/19/18 12:00 Pulse 105 H 09/19/18 12:19 Resp 23 09/19/18 12:00 BP 127/67 09/19/18 12:00 Pulse Ox 92 L 09/19/18 12:00 Intake & Output 09/18/18 09/19/18 09/19/18 18:59 06:59 18:59 Intake Total 300 1350 1200 Output Total 380 385 315 Balance -80 965 885 Weight 61.235 kg 69 kg Intake: IV 200 1200 600 Dextrose 5%-0.9% NaCl 1, 100 000 ml @ 100 mls/hr IV . Q10H MERRY Rx#:[id number] Sodium Chloride 0.9% 1, 200 1200 500 000 ml @ 100 mls/hr IV . Q10H STA Rx#:[id number] Intake, IV Titration 100 150 600 Amount Aztreonam 1 gm In Sodium 50 50 Chloride 0.9% 50 ml @ 100 mls/hr IVPB Q12HR MERRY Rx #:[id number] Magnesium Sulfate-D5w Pmx 200 1 gm In Dextrose/Water 1 100ml.bag @ 100 mls/hr IVPB Q1H MERRY Rx#: [id number] Meropenem 1 gm In Sodium 100 100 100 Chloride 0.9% 100 ml @ 200 mls/hr IVPB Q8HR MERRY Rx#:[id number] Sodium Phosphate 10 mmol 250 In Sodium Chloride 0.9% 250 ml @ 125 mls/hr IVPB ONCE ONE Rx#:[id number] Output: Urine 380 385 315 Other: Voiding Method Indwelling Catheter Indwelling Catheter - Exam Constitutional: No acute distress, , pleasant Eyes: Anicteric sclerae, moist conjunctiva, no lid-lag, PERRLA ENMT: NC/AT,Oropharynx clear, no erythema, exudates Neck:Supple, FROM, no masses, or JVD, No carotid bruits; No thyromegaly Lungs: Inspiratory and expiratory rhonchi and coarse breath sounds, Normal respiratory effort, no accessory muscle use currently on AirVO2 50 L Cardiovascular: Heart regular in rate and rhythm, No murmurs, gallops, or rubs no peripheral edema Abdominal: Soft Nontender, nom distended, no guarding, no rebound or rigidity, Normoactive bowel sounds No hepatomegaly, No splenomegaly, No palpable mass No abdominal wall hernia noted Skin: Normal temperature, tone, texture, turgor, No induration No subcutaneous nodules, No rash, lesions, No ulcers Extremities:No digital cyanosis No clubbing, Pedal pulses intact and symmetrical Radial pulses intact and symmetrical Normal gait and station, No calf tenderness Neuro: Quadriplegic, with flexion contractures and atrophy of lower extremities, the patient still not as conversive or functional as previously noted by family - Labs CBC & Chem 7: 09/19/18 05:04 09/19/18 05:04 Labs: Abnormal Lab Results - Last 24 Hours (Table) 09/18/18 09/18/18 09/18/18 Range/Units 13:58 13:58 13:58 RBC 3.52 L (4.30-5.90) m/uL Hgb 11.6 L (13.0-17.5) gm/dL Hct 35.4 L (39.0-53.0) % MCV 100.6 H (80.0-100.0) fL RDW 15.6 H (11.5-15.5) % Plt Count 75 L D (150-450) k/uL Lymphocytes # 0.2 L (1.0-4.8) k/uL Lymphocytes # (Manual) (1.0-4.8) k/uL PT 47.8 H (9.0-12.0) sec INR 5.0 H (<1.2) APTT 49.6 H (22.0-30.0) sec Sodium 123 L (137-145) mmol/L Chloride 89 L (98-107) mmol/L Carbon Dioxide (22-30) mmol/L BUN 31 H (9-20) mg/dL Glucose (74-99) mg/dL POC Glucose (mg/dL) (75-99) mg/dL Plasma Lactic Acid Daniel (0.7-2.0) mmol/L Calcium (8.4-10.2) mg/dL Phosphorus (2.5-4.5) mg/dL Magnesium 1.4 L (1.6-2.3) mg/dL Total Protein 5.5 L (6.3-8.2) g/dL Albumin 3.0 L (3.5-5.0) g/dL Urine Protein (Negative) Urine Blood (Negative) Ur Leukocyte Esterase (Negative) Urine RBC (0-5) /hpf Urine WBC (0-5) /hpf Urine Bacteria (None) /hpf Hyaline Casts (0-2) /lpf Urine Mucus (None) /hpf 09/18/18 09/18/18 09/19/18 Range/Units 15:43 16:04 05:04 RBC (4.30-5.90) m/uL Hgb (13.0-17.5) gm/dL Hct (39.0-53.0) % MCV (80.0-100.0) fL RDW (11.5-15.5) % Plt Count (150-450) k/uL Lymphocytes # (1.0-4.8) k/uL Lymphocytes # (Manual) (1.0-4.8) k/uL PT (9.0-12.0) sec INR (<1.2) APTT (22.0-30.0) sec Sodium 125 L (137-145) mmol/L Chloride (98-107) mmol/L Carbon Dioxide 20 L (22-30) mmol/L BUN 25 H (9-20) mg/dL Glucose 61 L (74-99) mg/dL POC Glucose (mg/dL) (75-99) mg/dL Plasma Lactic Acid Daniel 2.2 H* (0.7-2.0) mmol/L Calcium 8.0 L (8.4-10.2) mg/dL Phosphorus 2.2 L (2.5-4.5) mg/dL Magnesium (1.6-2.3) mg/dL Total Protein 4.8 L (6.3-8.2) g/dL Albumin 2.4 L (3.5-5.0) g/dL Urine Protein 1+ H (Negative) Urine Blood Trace H (Negative) Ur Leukocyte Esterase Large H (Negative) Urine RBC 12 H (0-5) /hpf Urine WBC 18 H (0-5) /hpf Urine Bacteria Rare H (None) /hpf Hyaline Casts 5 H (0-2) /lpf Urine Mucus Rare H (None) /hpf 09/19/18 09/19/18 09/19/18 Range/Units 05:04 06:58 07:36 RBC 3.30 L (4.30-5.90) m/uL Hgb 11.0 L (13.0-17.5) gm/dL Hct 33.0 L (39.0-53.0) % MCV (80.0-100.0) fL RDW (11.5-15.5) % Plt Count 75 L (150-450) k/uL Lymphocytes # (1.0-4.8) k/uL Lymphocytes # (Manual) 0.07 L (1.0-4.8) k/uL PT (9.0-12.0) sec INR (<1.2) APTT (22.0-30.0) sec Sodium (137-145) mmol/L Chloride (98-107) mmol/L Carbon Dioxide (22-30) mmol/L BUN (9-20) mg/dL Glucose (74-99) mg/dL POC Glucose (mg/dL) 62 L 110 H (75-99) mg/dL Plasma Lactic Acid Daniel (0.7-2.0) mmol/L Calcium (8.4-10.2) mg/dL Phosphorus (2.5-4.5) mg/dL Magnesium (1.6-2.3) mg/dL Total Protein (6.3-8.2) g/dL Albumin (3.5-5.0) g/dL Urine Protein (Negative) Urine Blood (Negative) Ur Leukocyte Esterase (Negative) Urine RBC (0-5) /hpf Urine WBC (0-5) /hpf Urine Bacteria (None) /hpf Hyaline Casts (0-2) /lpf Urine Mucus (None) /hpf 09/19/18 09/19/18 Range/Units 12:19 12:43 RBC (4.30-5.90) m/uL Hgb (13.0-17.5) gm/dL Hct (39.0-53.0) % MCV (80.0-100.0) fL RDW (11.5-15.5) % Plt Count (150-450) k/uL Lymphocytes # (1.0-4.8) k/uL Lymphocytes # (Manual) (1.0-4.8) k/uL PT (9.0-12.0) sec INR (<1.2) APTT (22.0-30.0) sec Sodium (137-145) mmol/L Chloride (98-107) mmol/L Carbon Dioxide (22-30) mmol/L BUN (9-20) mg/dL Glucose (74-99) mg/dL POC Glucose (mg/dL) 63 L 130 H (75-99) mg/dL Plasma Lactic Acid Daniel (0.7-2.0) mmol/L Calcium (8.4-10.2) mg/dL Phosphorus (2.5-4.5) mg/dL Magnesium (1.6-2.3) mg/dL Total Protein (6.3-8.2) g/dL Albumin (3.5-5.0) g/dL Urine Protein (Negative) Urine Blood (Negative) Ur Leukocyte Esterase (Negative) Urine RBC (0-5) /hpf Urine WBC (0-5) /hpf Urine Bacteria (None) /hpf Hyaline Casts (0-2) /lpf Urine Mucus (None) /hpf Microbiology - Last 24 Hours (Table) 09/18/18 Unknown Gram Stain - Preliminary Sputum Sputum Culture - Preliminary 09/18/18 16:04 Urine Culture - Preliminary Urine,Catheterized Assessment and Plan (1) Sepsis Narrative/Plan: * Likely secondary to UTI and pneumonia * No leukocytosis, hypothermia has resolved, hemodynamically stable * Continue antibiotics with Merrem and aztreonam * Appreciated pulmonary and ID recommendations Current Visit: Yes Status: Acute Code(s): A41.9 - SEPSIS, UNSPECIFIED ORGANISM SNOMED Code(s): 96304245 (2) Acute respiratory failure with hypoxia Narrative/Plan: * Likely secondary to pneumonia and sepsis * Continue with supplemental oxygen currently on airVO2 at 50 L pulmonary following * Continue breathing treatments scheduled and when necessary * Continue antibiotic regimen Current Visit: Yes Status: Acute Code(s): J96.01 - ACUTE RESPIRATORY FAILURE WITH HYPOXIA SNOMED Code(s): 15998072 (3) Pneumonia Narrative/Plan: * Treatment as above continue antibiotics Current Visit: Yes Status: Acute Code(s): J18.9 - PNEUMONIA, UNSPECIFIED ORGANISM SNOMED Code(s): 822989046 (4) Urinary tract infection Narrative/Plan: * History of neurogenic bladder with suprapubic catheter * Likely need suprapubic catheter changed during this hospitalization * Continue IV antibiotics per ID recommendations Current Visit: Yes Status: Acute Code(s): N39.0 - URINARY TRACT INFECTION, SITE NOT SPECIFIED SNOMED Code(s): 19737598 (5) Hyponatremia Narrative/Plan: * Continue IV fluids D5 normal saline at 100 mL an hour * Sodium gradually trending up Current Visit: Yes Status: Acute Code(s): E87.1 - HYPO-OSMOLALITY AND HYPONATREMIA SNOMED Code(s): 51216766 (6) Coagulopathy Narrative/Plan: * 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 but held secondary to supratherapeutic INR at 5 on presentation * Continue to hold Coumadin and recheck INR tomorrow Current Visit: Yes Status: Acute Code(s): D68.9 - COAGULATION DEFECT, UNSPECIFIED SNOMED Code(s): 96901660 (7) Hypomagnesemia Narrative/Plan: * Magnesium level I.8 today continue to monitor Current Visit: Yes Status: Acute Code(s): E83.42 - HYPOMAGNESEMIA SNOMED Code(s): 949512147 (8) Thrombocytopenia Narrative/Plan: * Stable without any suggestion active bleeding * Continue to monitor Current Visit: Yes Status: Acute Code(s): D69.6 - THROMBOCYTOPENIA, UNSPECIFIED SNOMED Code(s): 256090193 Plan: * Discussed plan of care with family members daughter and son in law * Continue current treatment plan * Anticipate discharge to be determined by course
[2018-09-19 18:13] LABS: Glucose,Whole Blood 89 mg/dL (75-99)
--- NOTE | 2018-09-19 22:27 | PN ---
PROGRESS NOTE DATE OF SERVICE: 09/19/2018 REASON FOR FOLLOWUP: Pneumonia and urinary tract infection. INTERVAL HISTORY: The patient overall feels better and has improved. The patient not hypothermic anymore. He is breathing a bit more comfortably. Denies having any chest pain. Occasional cough. No abdominal pain. No diarrhea reported. PHYSICAL EXAMINATION: Blood pressure 98/56 with a pulse of 100, temperature of 98. He is 90% on high- flow oxygen. General description is an elderly male lying in bed in no distress. Respiratory system: Unlabored breathing with decreased breath sounds at the bases. Heart S1, S2. Regular rate and rhythm. LABS: Hemoglobin is 11, white count 6.5. BUN of 25, creatinine 0.71. Electrolytes have been normal. Urine with gram-negative. Sputum culture pending. Blood culture so far negative. DIAGNOSTIC IMPRESSION AND PLAN: Patient admitted to the hospital with sepsis and patient did have a left lower lobe pneumonia as well as a gram-negative urinary tract infection. The patient is currently covered with meropenem because of multiple antibiotic allergies. Continue for now. Discontinue vancomycin. Continue supportive care. MMODL / IJN: [id number] / ROGERS
[2018-09-19 23:53] LABS: Glucose,Whole Blood 99 mg/dL (75-99)
[2018-09-20 05:36] LABS: Basophils % (A) 0 %; Eosinophils % (A) 0 %; HCT 34.1 % (39.0-53.0); HGB 11.1 gm/dL (13.0-17.5); Hypochromasia Slight; Lymphocytes # (A) 0.2 k/uL (1.0-4.8); Lymphocytes % (A) 3 %; MCH 32.3 pg (25.0-35.0); MCHC 32.4 g/dL (31.0-37.0); MCV 99.6 fL (80.0-100.0); Macrocytosis Slight; Mean Platelet Volume 8.4; Monocytes # (A) 0.2 k/uL (0-1.0); Monocytes % (A) 3 %; Neutrophils # (A) 7.1 k/uL (1.3-7.7); Neutrophils % (A) 94 %; Poikilocytosis Slight; RBC 3.43 m/uL (4.30-5.90); RDW 15.4 % (11.5-15.5); WBC 7.6 k/uL (3.8-10.6)
[2018-09-20 05:38] LABS: Platelet Count 71 k/uL (150-450)
[2018-09-20 05:47] LABS: Prothrombin Time 104.2 sec (9.0-12.0)
[2018-09-20 05:50] LABS: ALT 38 U/L (21-72); AST 69 U/L (17-59); Albumin 2.2 g/dL (3.5-5.0); Alkaline Phosphatase 61 U/L (38-126); Anion Gap 5 mmol/L; Blood Urea Nitrogen 17 mg/dL (9-20); Calcium 7.5 mg/dL (8.4-10.2); Carbon Dioxide 22 mmol/L (22-30); Chloride 105 mmol/L (98-107); Glucose 98 mg/dL (74-99); Potassium 4.2 mmol/L (3.5-5.1); Sodium 132 mmol/L (137-145); Total Bilirubin 0.4 mg/dL (0.2-1.3); Total Protein 4.3 g/dL (6.3-8.2)
[2018-09-20 05:52] LABS: INR >10.0 (<1.2)
[2018-09-20 05:56] LABS: Glucose,Whole Blood 98 mg/dL (75-99)
[2018-09-20] MEDS: PANTOPRAZOLE 40 MG/10 ML VIAL IVP SCH (08:08)
[2018-09-20] MEDS: MEROPENEM 1 GM in SODIUM CHLORIDE 0.9% 100 ML IVPB SCH ×3 (08:08→23:17)
[2018-09-20] MEDS: CHOLECALCIFEROL 400 UNIT TAB PO SCH (08:13)
[2018-09-20] MEDS: guaiFENesin 600 MG TABLET.ER PO SCH ×2 (08:14→21:00)
[2018-09-20] MEDS: MULTIVITAMINS, THERA 1 EACH TAB PO SCH (08:14)
[2018-09-20 08:28] LABS: Prothrombin Time 109.3 sec (9.0-12.0)
[2018-09-20 08:35] LABS: INR >10.0 (<1.2)
[2018-09-20] MEDS: IPRATROPIUM-ALBUTEROL 3 ML NEB INHALATION SCH ×4 (08:51→20:38)
[2018-09-20] MEDS ORDERED: PHYTONADIONE 2.5 MG in SODIUM CHLORIDE 0.9% 50 ML IVPB STA (08:54)
[2018-09-20] MEDS: DEXTROSE 5%-0.9% NACL 1,000 ML IV SCH ×2 (09:33→20:58)
[2018-09-20] MEDS: LEVOTHYROXINE IVP 100 MCG/5 ML VIAL IV SCH (10:59)
[2018-09-20] MEDS: methylPREDNISolone SOD SUCCI 40 MG/ML 1 ML VIAL IV SCH ×3 (12:32→23:17)
[2018-09-20 12:45] LABS: Glucose,Whole Blood 100 mg/dL (75-99)
[2018-09-20] MEDS: BISACODYL 10 MG SUPP RECTAL PRN (14:07)
[2018-09-20 15:38] LABS: INR 2.1 (<1.2); Prothrombin Time 20.8 sec (9.0-12.0)
[2018-09-20] MEDS ORDERED: WARFARIN 1 MG TAB PO SCH (16:03)
[2018-09-20 18:28] LABS: Glucose,Whole Blood 130 mg/dL (75-99)
--- NOTE | 2018-09-20 19:16 | P.PN ---
Subjective Progress Note Date: 09/20/18 On today's evaluation, I'm seeing this patient for a follow-up. He is a quadriplegic male patient 8 years of age who presented to the hospital because of increased shortness of breath, cough and and he was diagnosed having a pneumonia and urinary tract infection. He is in the intensive care unit. He manriquez s been infected in the past with gram-negative bacteria including an ESBL producing E. coli. His urine cultures positive for gram-negative bacillus. His sputum cultures also positive for gram-negative bacillus. Currently is on IV dependent. In terms of his breathing, the patient has no major respiratory distress at rest. He is using a high flow oxygen at an FiO2 of 70% with a flow rate of 50 and his pulse ox is around 96%. His chest x-ray shows limited bibasilar pulmonary infiltrates typical of an underlying pneumonia. He has quite pulmonary restriction and pulmonary insufficiency related to his quadriplegia. He is coughing mechanism is weak and poor. He is arousable. He is awake. He follows simple commands. He continues to be on DuoNeb nebulized treatments around the clock. He is on IV Merrem. He is also receiving IV Solu Medrol 40 mg every 8 hours. Clinically he is somnolent but is arousable. He is afebrile. No other significant events over the past 24 hours. Objective - Vital Signs Vital signs: Vital Signs Temp 97.2 F L 09/20/18 16:00 Pulse 96 09/20/18 19:00 Resp 13 09/20/18 19:00 BP 129/78 09/20/18 19:00 Pulse Ox 79 L 09/20/18 19:00 Intake & Output 09/20/18 09/20/18 09/21/18 06:59 18:59 06:59 Intake Total 1450 1350 100 Output Total 870 610 30 Balance 580 740 70 Weight 70.9 kg Intake: IV 1300 1150 100 Dextrose 5%-0.9% NaCl 1, 1300 1100 100 000 ml @ 100 mls/hr IV . Q10H [facility] Rx#:[id number] Phytonadione 2.5 mg In 50 Sodium Chloride 0.9% 50 ml @ 200 mls/hr IVPB ONCE STA Rx#:[id number] Intake, IV Titration 150 200 Amount Aztreonam 1 gm In Sodium 50 Chloride 0.9% 50 ml @ 100 mls/hr IVPB Q12HR [facility] Rx #:[id number] Meropenem 1 gm In Sodium 100 200 Chloride 0.9% 100 ml @ 200 mls/hr IVPB Q8HR [facility] Rx#:[id number] Output: Urine 870 610 30 Other: Voiding Method Indwelling Catheter Indwelling Catheter - Exam Constitutional: No acute distress, , pleasant, the patient is wearing a high flow oxygen for now. He is not using his is and muscles of breathing for the time being. Eyes: Anicteric sclerae, moist conjunctiva, no lid-lag, PERRLA ENMT: NC/AT,Oropharynx clear, no erythema, exudates Neck:Supple, FROM, no masses, or JVD, No carotid bruits; No thyromegaly Lungs: Inspiratory and expiratory rhonchi and coarse breath sounds, Normal re spiratory effort, no accessory muscle use currently on AirVO2 50 L Cardiovascular: Heart regular in rate and rhythm, No murmurs, gallops, or rubs no peripheral edema Abdominal: Soft Nontender, nom distended, no guarding, no rebound or rigidity, Normoactive bowel sounds No hepatomegaly, No splenomegaly, No palpable mass No abdominal wall hernia noted Skin: Normal temperature, tone, texture, turgor, No induration No subcutaneous nodules, No rash, lesions, No ulcers Extremities:No digital cyanosis No clubbing, Pedal pulses intact and symmetrical Radial pulses intact and symmetrical Normal gait and station, No calf tenderness Neuro: Quadriplegic, with flexion contractures and atrophy of lower extremities, the patient still not as conversive or functional , yet he is arousable and is following simple commands. He does have some motor functions left upper extremity and was told and he was able to feed himself. Currently is nothing by mouth. - Labs CBC & Chem 7: 09/20/18 05:14 09/20/18 05:14 Labs: Abnormal Lab Results - Last 24 Hours (Table) 09/20/18 09/20/18 09/20/18 Range/Units 05:14 05:14 05:14 RBC 3.43 L (4.30-5.90) m/uL Hgb 11.1 L (13.0-17.5) gm/dL Hct 34.1 L (39.0-53.0) % Plt Count 71 L (150-450) k/uL Lymphocytes # 0.2 L (1.0-4.8) k/uL PT 104.2 H (9.0-12.0) sec INR >10.0 H* (<1.2) Sodium 132 L (137-145) mmol/L Creatinine 0.64 L (0.66-1.25) mg/dL POC Glucose (mg/dL) (75-99) mg/dL Calcium 7.5 L (8.4-10.2) mg/dL AST 69 H (17-59) U/L Total Protein 4.3 L (6.3-8.2) g/dL Albumin 2.2 L (3.5-5.0) g/dL 09/20/18 09/20/18 09/20/18 Range/Units 07:58 12:43 15:12 RBC (4.30-5.90) m/uL Hgb (13.0-17.5) gm/dL Hct (39.0-53.0) % Plt Count (150-450) k/uL Lymphocytes # (1.0-4.8) k/uL PT 109.3 H 20.8 H (9.0-12.0) sec INR >10.0 H* 2.1 H (<1.2) Sodium (137-145) mmol/L Creatinine (0.66-1.25) mg/dL POC Glucose (mg/dL) 100 H (75-99) mg/dL Calcium (8.4-10.2) mg/dL AST (17-59) U/L Total Protein (6.3-8.2) g/dL Albumin (3.5-5.0) g/dL 09/20/18 Range/Units 18:26 RBC (4.30-5.90) m/uL Hgb (13.0-17.5) gm/dL Hct (39.0-53.0) % Plt Count (150-450) k/uL Lymphocytes # (1.0-4.8) k/uL PT (9.0-12.0) sec INR (<1.2) Sodium (137-145) mmol/L Creatinine (0.66-1.25) mg/dL POC Glucose (mg/dL) 130 H (75-99) mg/dL Calcium (8.4-10.2) mg/dL AST (17-59) U/L Total Protein (6.3-8.2) g/dL Albumin (3.5-5.0) g/dL Microbiology - Last 24 Hours (Table) 09/18/18 Unknown Gram Stain - Preliminary Sputum Sputum Culture - Preliminary Rosalie albicans Gram Neg Bacilli 09/18/18 17:25 Blood Culture - Preliminary Blood No Growth after 24 hours 09/18/18 16:04 Urine Culture - Preliminary Urine,Catheterized Gram Neg Bacilli Assessment and Plan Plan: Assessment 1 sepsis secondary to pneumonia and suspected multidrug resistant urinary tract infection with gram-negative microorganisms. The patient gram-negative bacillus in the urine and the patient also has a gram-negative bacillus in the sputum. Currently the patient on IV meropenem. 2 acute hypoxic respiratory failure in patient is currently on high flow oxygen to maintain a saturation above 90%. 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 Plan Aggressive pulmonary toileting. Provide the patient incentive spirometer. Attempt to wean down the FiO2 as tolerated to maintain a saturation above 90%. Repeat chest x-ray in the morning. Awaiting the final sputum Gram stain and culture. Awaiting the final urine Gram stain and culture. Continued IV Merrem. Monitor electrolytes. Keep the patient ICU for now. We'll continue to follow make further recommendations based on his progress. INR is improved and is currently down to 2.1. We will restart Coumadin with next 24 hours. The PT/INR monitoring. Restart Synthroid 25 g on a daily basis. We'll follow.
[2018-09-20 23:25] LABS: Glucose,Whole Blood 130 mg/dL (75-99)
--- NOTE | 2018-09-21 00:58 | PN ---
PROGRESS NOTE DATE OF SERVICE: 09/20/2012. REASON FOR FOLLOWUP: Urinary tract infection and pneumonia. INTERVAL HISTORY: The patient is currently afebrile The patient is lethargic and still requiring high-flow oxygen. No nausea or vomiting. No abdominal pain or any diarrhea recorded. EXAMINATION: Blood pressure is 107/62 with a pulse of 79, temperature 98, he is 98% on high- flow oxygen. GENERAL DESCRIPTION: An elderly male lying in bed in no distress. RESPIRATORY SYSTEM: Unlabored breathing with decreased breath sounds in the bases. HEART: Heart S1, S2. Regular rate and rhythm. LABS: Hemoglobin 11.1, white count 7.6 with a BUN of 17, creatinine 0.61. Urine is pseudomonas aeruginosa sensitive pathogen with sputum initially gram-negative bacilli. DIAGNOSTIC IMPRESSION AND PLAN: The patient admitted to the hospital with sepsis, likely combination of left lower lobe pneumonia and Pseudomonas urinary tract infection. The patient is currently covered with meropenem which will be continued for now in view of his multiple antibiotic allergies, while waiting for sensitivity on the gram-negative to finalize. Continue supportive care. MMODL / IJN: [id number] / MTDD
[2018-09-21] MEDS: hydrALAZINE HCL 20 MG/ML 1 ML VIAL IVP PRN ×3 (04:19→15:40)
[2018-09-21] MEDS: DEXTROSE 5%-0.9% NACL 1,000 ML IV SCH ×3 (04:23→20:16)
[2018-09-21 04:44] LABS: Basophils % (A) 0 %; Eosinophils % (A) 1 %; HCT 36.3 % (39.0-53.0); Hypochromasia Slight; Lymphocytes # (A) 0.2 k/uL (1.0-4.8); Lymphocytes % (A) 5 %; MCH 33.8 pg (25.0-35.0); MCV 102.6 fL (80.0-100.0); Macrocytosis Slight; Mean Platelet Volume 7.8; Monocytes # (A) 0.1 k/uL (0-1.0); Monocytes % (A) 3 %; Neutrophils # (A) 4.4 k/uL (1.3-7.7); Neutrophils % (A) 91 %; Poikilocytosis Slight; RBC 3.54 m/uL (4.30-5.90); RDW 15.6 % (11.5-15.5); WBC 4.9 k/uL (3.8-10.6)
[2018-09-21 04:45] LABS: Platelet Count 72 k/uL (150-450)
[2018-09-21 04:55] LABS: ALT 32 U/L (21-72); AST 60 U/L (17-59); Albumin 2.4 g/dL (3.5-5.0); Alkaline Phosphatase 70 U/L (38-126); Anion Gap 5 mmol/L; Blood Urea Nitrogen 14 mg/dL (9-20); Carbon Dioxide 22 mmol/L (22-30); Chloride 107 mmol/L (98-107); Glucose 107 mg/dL (74-99); Magnesium 1.7 mg/dL (1.6-2.3); Phosphorus 2.5 mg/dL (2.5-4.5); Potassium 4.8 mmol/L (3.5-5.1); Sodium 134 mmol/L (137-145); Total Bilirubin 0.5 mg/dL (0.2-1.3); Total Protein 4.8 g/dL (6.3-8.2)
[2018-09-21] MEDS ORDERED: SODIUM PHOSPHATE 10 MMOL in SODIUM CHLORIDE 0.9% 250 ML IVPB ONE (06:15)
[2018-09-21] MEDS: MAGNESIUM SULFATE-D5W PMX 1 GM in DEXTROSE/WATER 1 100ML.BAG IVPB SCH ×2 (06:18→08:20)
[2018-09-21 06:36] LABS: Glucose,Whole Blood 135 mg/dL (75-99)
--- NOTE | 2018-09-21 07:14 | PN ---
PROGRESS NOTE DATE OF SERVICE: 09/20/2018 PRESENTING COMPLAINT: Tired. INTERVAL HISTORY: Patient is seen by me yesterday on 09/20/2018 in the ICU. The patient follows with Dr. Loo, is a resident of [facility]. The patient has got work-related quadriplegia and is pretty much bed bound with suprapubic catheter, requires a Dhaval lift. The patient has got some function of the right hand. Does use a wheelchair. The patient is incontinent of bowel and urine. Normally he is AO x3. The patient now admitted to the ICU with sepsis, multidrug resistant UTI and acute hypoxic respiratory failure on high-flow oxygen. The patient was in Coumadin toxicity this morning and I ordered 2.5 mg of vitamin K. Later on the INR did come down. REVIEW OF SYSTEMS: Cannot be obtained as patient rather lethargic. CURRENT MEDICATIONS: Current medications are reviewed that include DuoNeb, Mucinex, Synthroid, IV meropenem, IV Solu-Medrol, IV vitamin K 2.5 mg given earlier today. PHYSICAL EXAMINATION: On examination, temperature 96.9, pulse 105, respiration 34, blood pressure 91/67, pulse ox 97% on high-flow oxygen 50%. GENERAL APPEARANCE: Average build, lying in bed, tired, lethargic. EYES: Pupils equal. Conjunctivae normal. HENT: External appearance of nose and ears normal. Oral cavity dry. High-flow nasal cannula in place. NECK: JVD unable to assess. Mass not palpable. RESPIRATORY: Effort increased. LUNGS: Diminished breath sounds. Some crackles. CARDIOVASCULAR: First and second sounds normal. No edema. ABDOMEN: Soft, nontender. Liver and spleen not palpable. PSYCHIATRY: Unable to assess. NEUROLOGICAL: Pupils equal. move his limbs. INVESTIGATIONS: White count 7.6, hemoglobin 11.1. INR greater than 10. Potassium 4.2. BUN 17, creatinine 0.64. Repeat INR was 2.1. Chest x-ray film personally reviewed by me from yesterday's film shows cardiomegaly and some scattered infiltrates. ASSESSMENT: 1. Suspect aspiration pneumonia, bilateral. 2. Acute hypoxic respiratory failure from above, requiring high-flow oxygen 50%. 3. Essential hypertension. 4. Chronic quadriplegia with some residual function in the right arm. 5. Neurogenic bladder with chronic suprapubic catheter. 6. Acute Coumadin toxicity, no evidence of bleeding. 7. Acute urinary tract infection with urine positive for Pseudomonas and Enterococcus faecalis. PLAN: Prognosis is guarded. Continue current medication and treatment including IV meropenem, high-flow oxygen, supportive care. Prognosis guarded. Follow up with ID and Pulmonary. Patient remains in the ICU critically ill. MMODL / IJN: [id number] /
[2018-09-21 08:10] LABS: INR 1.1 (<1.2)
[2018-09-21] MEDS: MULTIVITAMINS, THERA 1 EACH TAB PO SCH (08:11)
[2018-09-21] MEDS: CHOLECALCIFEROL 400 UNIT TAB PO SCH (08:11)
[2018-09-21] MEDS: guaiFENesin 600 MG TABLET.ER PO SCH ×2 (08:11→20:13)
[2018-09-21] MEDS: methylPREDNISolone SOD SUCCI 40 MG/ML 1 ML VIAL IV SCH (08:20)
[2018-09-21] MEDS: MEROPENEM 1 GM in SODIUM CHLORIDE 0.9% 100 ML IVPB SCH ×2 (08:20→15:39)
[2018-09-21] MEDS: PANTOPRAZOLE 40 MG/10 ML VIAL IVP SCH (08:20)
[2018-09-21] MEDS: LEVOTHYROXINE IVP 100 MCG/5 ML VIAL IV SCH (08:22)
[2018-09-21] MEDS: IPRATROPIUM-ALBUTEROL 3 ML NEB INHALATION SCH ×4 (08:54→19:58)
--- NOTE | 2018-09-21 08:55 | XR ---
EXAMINATION TYPE: XR chest 1V portable DATE OF EXAM: 09/21/2018 COMPARISON: 09/19/2018 HISTORY: Shortness of breath TECHNIQUE: Single frontal view of the chest is obtained. FINDINGS: There are low lung volumes and a new right-sided upper lobe interstitial opacity with air bronchograms. There is a persistent retrocardiac opacity and left basilar opacity. Blunting of costop hrenic angles relates to very trace pleural effusions. Cardiomediastinal silhouette is mildly enlarge d. There is diffuse osseous demineralization. IMPRESSION: New right upper lobe pneumonia and left basilar opacity that may represent multifocal pn eumonia or atelectasis. Trace pleural effusions are also noted.
[2018-09-21] MEDS ORDERED: VANCOMYCIN IV PER PHARMACY 1 EACH MISC MISCELLANE PRN (10:03)
[2018-09-21] MEDS: VANCOMYCIN 1,500 MG in SODIUM CHLORIDE 0.9% 250 ML IVPB SCH ×2 (10:53→22:35)
[2018-09-21] MEDS: FUROSEMIDE 10 MG/ML 2 ML VIAL IV SCH ×2 (10:53→20:14)
[2018-09-21 11:53] LABS: Glucose,Whole Blood 108 mg/dL (75-99)
[2018-09-21 17:54] LABS: Glucose,Whole Blood 122 mg/dL (75-99)
--- NOTE | 2018-09-21 18:06 | P.PN ---
Subjective Progress Note Date: 09/21/18 On today's evaluation, I'm seeing this patient for a follow-up. He is a quadriplegic male patient 8 years of age who presented to the hospital because of increased shortness of breath, cough and and he was diagnosed having a pneumonia and urinary tract infection. He is in the intensive care unit. He manriquez s been infected in the past with gram-negative bacteria including an ESBL producing E. coli. His urine cultures positive for gram-negative bacillus. His sputum cultures also positive for gram-negative bacillus. Currently is on IV dependent. In terms of his breathing, the patient has no major respiratory distress at rest. He is using a high flow oxygen at an FiO2 of 70% with a flow rate of 50 and his pulse ox is around 96%. His chest x-ray shows limited bibasilar pulmonary infiltrates typical of an underlying pneumonia. He has quite pulmonary restriction and pulmonary insufficiency related to his quadriplegia. He is coughing mechanism is weak and poor. He is arousable. He is awake. He follows simple commands. He continues to be on DuoNeb nebulized treatments around the clock. He is on IV Merrem. He is also receiving IV Solu Medrol 40 mg every 8 hours. Clinically he is somnolent but is arousable. He is afebrile. No other significant events over the past 24 hours. On today's evaluation of 09/21/2018, the patient is doing worse compared to yesterday. The patient has patient is quadriplegic 82-year-old male patient who came into the hospital because of a bilateral pneumonia and recurrent urinary tract infection. For now the patient is an acute hypoxic respiratory failure. He is on high flow oxygen and the flow is at 15 L with an FiO2 of 70%, and the follow-up chest x-ray from today shows a new right upper lobe pneumonia in addition to a left basilar opacity and this is consistent with multifocal pneumonia. There is trace pleural effusion lung bases bilaterally. The patient is currently on IV Merrem. The sputum Gram stain and culture at shown E. coli. The patient has a very weak cough. He has a congested chest. Unable to bring up sputum and unable to perform adequate pulmonate toileting. The patient is on bronchodilators around the clock. The patient is also on IV Solu-Medrol. In terms of urine checked infection, the patient was found to have pseudomonas aeruginosa which is again sensitive to meropenem. The antibiotic coverage is adequate for now. I suggest stepping up the antibiotic treatment to cover vancomycin special with the worsening of the pulmonary infiltrates on today's chest x-ray. A superimposed staphylococcal pneumonia cannot be completely excluded despite the fact that the patient has been found to have E. coli in the sputum and antibiotic coverage has been adequate for now. Based on his decline in overall pulmonary status, I contacted the daughter and her nurse practitioner informed the daughter about the above-mentioned changes. There is concern that the patient may ultimately want to full-blown respiratory failure requiring intubation mechanical ventilation. The daughter wanted to proceed with any intervention needed to continue with his care including intubation mechanical ventilation if needed. For now, the patient is lethargic, slow in answering questions, extremely weak, has a very poor cough and mechanism as he is being treated for his underlying urine checked infection bilateral pneumonia. Also, a swallow evaluation was done and the patient did not pass and he is considered to be a high-risk for aspiration. For that reason, the patient is not also meeting his nutritional requirements. Objective - Vital Signs Vital signs: Vital Signs Temp 98.9 F 09/21/18 16:00 Pulse 67 09/21/18 17:32 Resp 12 09/21/18 17:00 BP 94/55 09/21/18 17:00 Pulse Ox 97 09/21/18 17:19 Intake & Output 09/20/18 09/21/18 09/21/18 18:59 06:59 18:59 Intake Total 1350 1300 1450 Output Total 344 289 6409 Balance 740 730 390 Weight 74.1 kg 74.1 kg Intake: IV 1150 1300 1000 Dextrose 5%-0.9% NaCl 1, 1100 1300 1000 000 ml @ 100 mls/hr IV . Q10H [facility] Rx#:[id number] Phytonadione 2.5 mg In 50 Sodium Chloride 0.9% 50 ml @ 200 mls/hr IVPB ONCE STA Rx#:[id number] Intake, IV Titration 200 450 Amount Magnesium Sulfate-D5w Pmx 100 1 gm In Dextrose/Water 1 100ml.bag @ 100 mls/hr IVPB Q1H [facility] Rx#: [id number] Meropenem 1 gm In Sodium 200 100 Chloride 0.9% 100 ml @ 200 mls/hr IVPB Q8HR [facility] Rx#:[id number] Vancomycin 1,500 mg In 250 Sodium Chloride 0.9% 250 ml @ 125 mls/hr IVPB Q12H [facility] Rx#:[id number] Output: Urine 334 [id number] Other: Voiding Method Indwelling Catheter Indwelling Catheter Indwelling Catheter # Bowel Movements 1 1 - Exam Constitutional: The patient seems to be in mild degree of respiratory distress. He has a weak cough. He has having difficulties in controlling his respiratory secretions., the patient is wearing a high flow oxygen for now. He is not using his is and muscles of breathing for the time being. Eyes: Anicteric sclerae, moist conjunctiva, no lid-lag, PERRLA ENMT: NC/AT,Oropharynx clear, no erythema or exudates. The patient has significant valgus and his oral mucosa. No thrush seen. Neck:Supple, FROM, no masses, or JVD, No carotid bruits; No thyromegaly Lungs: Inspiratory and expiratory rhonchi and coarse breath sounds, Normal respiratory effort, no accessory muscle use currently on AirVO2 50 L. The breath sounds are markedly diminished. Crackles are appreciated throughout the lung petersen specially in the lower lobes bilaterally. Scattered rhonchi heard throughout the lung petersen bilaterally. Cardiovascular: Heart regular in rate and rhythm, No murmurs, gallops, or rubs no peripheral edema Abdominal: Soft Nontender, nom distended, no guarding, no rebound or rigidity, Normoactive bowel sounds No hepatomegaly, No splenomegaly, No palpable mass No abdominal wall hernia noted Skin: Normal temperature, tone, texture, turgor, No induration No subcutaneous nodules, No rash, lesions, No ulcers Extremities:No digital cyanosis No clubbing, Pedal pulses intact and symmetrical Radial pulses intact and symmetrical Normal gait and station, No calf tenderness Neuro: Quadriplegic, with flexion contractures and atrophy of lower extremities, the patient still not as conversive or functional , yet he is arousable and is occasionally following simple commands. He does have some motor functions and his left upper extremity and was told and he was able to feed himself. Currently is nothing by mouth. - Labs CBC & Chem 7: 09/21/18 04:34 09/21/18 04:34 Labs: Abnormal Lab Results - Last 24 Hours (Table) 03/09/20/18 09/21/18 Range/Units 18:26 23:22 04:34 RBC 3.54 L (4.30-5.90) m/uL Hgb 12.0 L (13.0-17.5) gm/dL Hct 36.3 L (39.0-53.0) % MCV 102.6 H (80.0-100.0) fL RDW 15.6 H (11.5-15.5) % Plt Count 72 L (150-450) k/uL Lymphocytes # 0.2 L (1.0-4.8) k/uL Sodium (137-145) mmol/L Creatinine (0.66-1.25) mg/dL Glucose (74-99) mg/dL POC Glucose (mg/dL) 130 H 130 H (75-99) mg/dL Calcium (8.4-10.2) mg/dL AST (17-59) U/L Total Protein (6.3-8.2) g/dL Albumin (3.5-5.0) g/dL 09/21/18 09/21/18 09/21/18 Range/Units 04:34 06:35 11:52 RBC (4.30-5.90) m/uL Hgb (13.0-17.5) gm/dL Hct (39.0-53.0) % MCV (80.0-100.0) fL RDW (11.5-15.5) % Plt Count (150-450) k/uL Lymphocytes # (1.0-4.8) k/uL Sodium 134 L (137-145) mmol/L Creatinine 0.57 L (0.66-1.25) mg/dL Glucose 107 H (74-99) mg/dL POC Glucose (mg/dL) 135 H 108 H (75-99) mg/dL Calcium 8.0 L (8.4-10.2) mg/dL AST 60 H (17-59) U/L Total Protein 4.8 L (6.3-8.2) g/dL Albumin 2.4 L (3.5-5.0) g/dL 09/21/18 Range/Units 17:53 RBC (4.30-5.90) m/uL Hgb (13.0-17.5) gm/dL Hct (39.0-53.0) % MCV (80.0-100.0) fL RDW (11.5-15.5) % Plt Count (150-450) k/uL Lymphocytes # (1.0-4.8) k/uL Sodium (137-145) mmol/L Creatinine (0.66-1.25) mg/dL Glucose (74-99) mg/dL POC Glucose (mg/dL) 122 H (75-99) mg/dL Calcium (8.4-10.2) mg/dL AST (17-59) U/L Total Protein (6.3-8.2) g/dL Albumin (3.5-5.0) g/dL Microbiology - Last 24 Hours (Table) 09/18/18 Unknown Gram Stain - Final Sputum Sputum Culture - Final Rosalie albicans Escherichia coli 09/18/18 16:04 Urine Culture - Final Urine,Catheterized Pseudomonas aeruginosa 09/18/18 17:25 Blood Culture - Preliminary Blood No Growth after 48 hours Assessment and Plan Plan: Assessment 1 pseudomonas aeruginosa urinary tract infection currently on IV meropenem. 2 multilobar pneumonia with worsening in pulmonary infiltrates involving the left upper lobe and right lower lobe on today's chest x-ray. The patient is on acute hypoxic respiratory failure requiring high flow oxygen with 50 L and FiO2 of 70% to maintain a saturation above 90%. The patient has bilateral lower lobe pulmonary infiltrates and there is worsening of the bilateral pulmonary infiltrates and we have contacted the family and we have confirmed a full CODE STATUS for the time being. 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 coli, current E. coli in the sputum has sensitive to Merrem. Most recent urinary cultures showing pseudomonas aeruginosa. 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 Currently the patient is off anticoagulation. The patient was receiving Coumadin and Coumadin is currently on hold. We'll provide the patient Lovenox for his previous history of DVT at a dose of 1.5 mg every 24 hours. 14 failed swallow evaluation patient is currently nothing by mouth. Plan Aggressive pulmonary toileting. Provide the patient incentive spirometer. Attempt to wean down the FiO2 as tolerated to maintain a saturation above 90%. Repeat chest x-ray in the morning , we'll continue this IV Merrem and will add vancomycin regarding the multifocal bilateral pneumonia which was positive for E. coli in the sputum yet the possibility of a staphylococcal pneumonia cannot be completely occluded. Also the patient has pseudomonas aeruginosa in the urine and the patient is currently on IV Merrem and this will be continued. We'll start the patient on Lasix 20 mg of push every 12 hours. Will give him nothing by mouth for now as the patient is unable to swallow. Stop the warfarin and put the patient on Lovenox 1.5 mg per KG per 24 hours. Prognosis poor. High likely that the patient would failed and required intubation mechanical ventilation. This will be discussed again with the daughter and I'm going to intubate the patient electively by tomorrow if there is no improvement in his overall condition. We'll repeat a chest x-ray in the morning. We'll continue monitoring this patient's progress and will make further recommendations based on his overall condition. There is a critically care evaluation was done and more than 30 minutes. Time with Patient: Greater than 30
[2018-09-21] MEDS: ENOXAPARIN 100 MG/ML SYRINGE SQ SCH (18:29)
[2018-09-21 23:28] LABS: Glucose,Whole Blood 137 mg/dL (75-99)
[2018-09-22] MEDS: MEROPENEM 1 GM in SODIUM CHLORIDE 0.9% 100 ML IVPB SCH ×3 (00:09→17:09)
--- NOTE | 2018-09-22 04:17 | PN ---
PROGRESS NOTE DATE OF SERVICE: 09/21/2018 PRESENTING COMPLAINT: Tired. INTERVAL HISTORY: The patient remains in the ICU. The patient has got chronic quadriplegia, bed-bound with a suprapubic catheter with a baseline function in the right hand, doubly incontinent. The patient is admitted with sepsis, pneumonia, UTI, status post Coumadin toxicity. The patient remains in the ICU. Tired. Remains on Airvo 66%. Patient was given some IV Lasix earlier today. Telemetry shows sinus rhythm. Currently not arousable; awake but not really able to communicate. REVIEW OF SYSTEMS: Cannot be done, patient is not able to really communicate currently. CURRENT MEDICATIONS: Reviewed that include DuoNeb, Lovenox, IV Lasix, Synthroid IV meropenem, IV Protonix, vancomycin. PHYSICAL EXAMINATION: Temperature 96.7, pulse 101.2, respirations 12, blood pressure 144/95, pulse ox 96% on high-flow oxygen. GENERAL APPEARANCE: Propped up, tired, lethargic but arousable. EYES: Pupils equal. Conjunctivae normal. HEENT: Oral cavity is dry. High-flow nasal cannula in place. NECK: JVD unable to assess. Mass not palpable. Respiratory effort increased. LUNGS: Diminished breath sounds. Occasional crackles. CARDIOVASCULAR: First and second sounds normal. No edema. ABDOMEN: Soft, nontender. Liver and spleen not palpable. NEUROLOGICAL: The patient has baseline some movement in the right upper extremity, otherwise is quadriplegic. INVESTIGATIONS: Chest x-ray film personally reviewed by me shows a new right upper lobe infiltrate. There are also infiltrates in the left lower lobe but white count 4.9, hemoglobin 12, platelets 72. Potassium 4.8, BUN 14, creatinine 0.57. Accu-Cheks are noted. Albumin 2.4. ASSESSMENT: 1. Suspect aspiration pneumonia, bilateral, multilobar, worsening. 2. Acute hypoxic respiratory failure from above, requiring high-flow oxygen on 66% Airvo. 3. Essential hypertension. 4. Chronic quadriplegia with residual function right upper arm. 5. Neurogenic bladder with chronic suprapubic catheter. 6. Acute Coumadin toxicity, reversed with vitamin K. 7. Acute urinary tract infection from a suprapubic catheter and cystitis with cultures positive for Pseudomonas and Enterococcus faecalis. 8. Acute metabolic encephalopathy from above, slow to respond. 9. Peripheral neuropathy. 10.FULL CODE. PLAN: Prognosis remains guarded. Continue with IV antibiotics, supportive care, high-flow oxygen. The patient remains critically ill. Follow with residential instructor. JOSSY / JEROMY: [id number] /
[2018-09-22 05:01] LABS: Basophils % (A) 0 %; Eosinophils % (A) 1 %; HCT 32.8 % (39.0-53.0); HGB 10.5 gm/dL (13.0-17.5); Hypochromasia Slight; Lymphocytes # (A) 0.3 k/uL (1.0-4.8); Lymphocytes % (A) 6 %; MCH 32.3 pg (25.0-35.0); Macrocytosis Slight; Mean Platelet Volume 7.9; Monocytes # (A) 0.2 k/uL (0-1.0); Monocytes % (A) 4 %; Neutrophils # (A) 3.8 k/uL (1.3-7.7); Neutrophils % (A) 88 %; RBC 3.25 m/uL (4.30-5.90); RDW 15.5 % (11.5-15.5); WBC 4.3 k/uL (3.8-10.6)
[2018-09-22 05:13] LABS: INR 1.1 (<1.2); Prothrombin Time 11.7 sec (9.0-12.0)
[2018-09-22 05:16] LABS: ALT 37 U/L (21-72); AST 41 U/L (17-59); Albumin 2.2 g/dL (3.5-5.0); Alkaline Phosphatase 54 U/L (38-126); Anion Gap 4 mmol/L; Blood Urea Nitrogen 18 mg/dL (9-20); Calcium 7.8 mg/dL (8.4-10.2); Carbon Dioxide 26 mmol/L (22-30); Chloride 108 mmol/L (98-107); Glucose 139 mg/dL (74-99); Magnesium 1.8 mg/dL (1.6-2.3); Potassium 3.4 mmol/L (3.5-5.1); Sodium 138 mmol/L (137-145); Total Bilirubin 0.5 mg/dL (0.2-1.3); Total Protein 4.3 g/dL (6.3-8.2)
[2018-09-22] MEDS ORDERED: Magnesium Replacement Protocol 1 EACH MISC MISCELLANE PRN (05:22)
[2018-09-22] MEDS ORDERED: Potassium Replacement Protocol 1 EACH MISC MISCELLANE PRN ×2 (05:22→22:52)
[2018-09-22 05:24] LABS: Platelet Count 71 k/uL (150-450)
[2018-09-22 05:48] LABS: Glucose,Whole Blood 140 mg/dL (75-99)
[2018-09-22] MEDS: POTASSIUM CHLORIDE 20 MEQ in WATER FOR INJECTION 1 100ML.BAG IVPB SCH ×2 (05:48→08:10)
--- NOTE | 2018-09-22 06:09 | PN ---
PROGRESS NOTE DATE OF SERVICE: 09/21/2018 REASON FOR FOLLOWUP: Pneumonia and urinary tract infection. INTERVAL HISTORY: The patient is currently afebrile. However, the patient remains to be slightly lethargic. Hemodynamically stable, not requiring any pressor support. No history could be obtained. No nausea, vomiting or any diarrhea per the nursing staff. PHYSICAL EXAMINATION: On examination, blood pressure 144/95 with a pulse of 112, temperature is 96.7. He is 96% on high-flow oxygen. General description is an elderly male lying in bed in no distress. RESPIRATORY SYSTEM: Unlabored breathing with decreased breath sounds at the bases. No wheeze. HEART: S1, S2. Regular rate and rhythm. ABDOMEN: Soft, no tenderness. EXTREMITIES: No edema of the feet. LABS: Hemoglobin 12, white count 4.9. BUN of 14, creatinine 0.57. Sputum is an E coli. Chest x-ray repeat did show some new right upper lobe pneumonia and left basilar opacity. DIAGNOSTIC IMPRESSION AND PLAN: Patient admitted to the hospital with sepsis in a patient who did have left lower lobe pneumonia in addition to the urinary tract infection. Urine did show Pseudomonas aeruginosa. Sputum showing Escherichia coli with concern for aspiration pneumonia now with new infiltrate right upper lobe concerning likely for he had recurrent aspiration pneumonias. We will have a bedside swallow evaluation. Antibiotic has been adjusted with addition of vancomycin will continue. We will try to obtain another sputum to narrow down antibiotics Will monitor his clinical course closely and continue supportive care. SAIMAL / TREVORN: [id number] / MTDD
[2018-09-22] MEDS: MAGNESIUM SULFATE-D5W PMX 1 GM in DEXTROSE/WATER 1 100ML.BAG IVPB SCH ×2 (06:55→08:12)
[2018-09-22] MEDS: IPRATROPIUM-ALBUTEROL 3 ML NEB INHALATION SCH ×4 (07:29→20:18)
[2018-09-22] MEDS: CHOLECALCIFEROL 400 UNIT TAB PO SCH (08:02)
[2018-09-22] MEDS: guaiFENesin 600 MG TABLET.ER PO SCH ×2 (08:02→22:08)
[2018-09-22] MEDS: MULTIVITAMINS, THERA 1 EACH TAB PO SCH (08:02)
--- NOTE | 2018-09-22 08:19 | XR ---
EXAMINATION TYPE: XR chest 1V DATE OF EXAM: 09/22/2018 HISTORY: Shortness of breath. COMPARISON: 09/21/2018 TECHNIQUE: Single view of the chest is submitted. FINDINGS: Demonstrated are scattered senescent parenchymal change. Right upper lobe infiltrate persists although appears to be improving. Persistent basilar effusions a nd probable left basilar atelectasis or additional infiltrate. The heart is stable. Hilar and mediastinal structures are within normal limits. Degenerative changes are seen of the dorsal spine. IMPRESSION: 1. Right upper lobe infiltrate persists although appears to be improving. Persistent basilar effusio ns and probable left basilar atelectasis or additional infiltrate.
[2018-09-22] MEDS: ENOXAPARIN 100 MG/ML SYRINGE SQ SCH (08:24)
[2018-09-22] MEDS: FUROSEMIDE 10 MG/ML 2 ML VIAL IV SCH ×2 (08:24→21:16)
[2018-09-22] MEDS: PANTOPRAZOLE 40 MG/10 ML VIAL IVP SCH (08:24)
[2018-09-22] MEDS: LEVOTHYROXINE IVP 100 MCG/5 ML VIAL IV SCH (08:25)
[2018-09-22] MEDS: VANCOMYCIN 1,500 MG in SODIUM CHLORIDE 0.9% 250 ML IVPB SCH ×2 (10:33→22:30)
[2018-09-22 11:44] LABS: Glucose,Whole Blood 118 mg/dL (75-99)
[2018-09-22] MEDS: DEXTROSE 5%-0.9% NACL 1,000 ML IV SCH ×2 (12:52→22:08)
[2018-09-22] MEDS ORDERED: ARTIFICIAL TEARS-HYPROMELLOSE DROPS 15 ML BTL BOTH EYES PRN (13:58)
--- NOTE | 2018-09-22 16:46 | P.PN ---
Subjective Progress Note Date: 09/22/18 On today's evaluation, I'm seeing this patient for a follow-up. He is a quadriplegic male patient 8 years of age who presented to the hospital because of increased shortness of breath, cough and and he was diagnosed having a pneumonia and urinary tract infection. He is in the intensive care unit. He manriquez s been infected in the past with gram-negative bacteria including an ESBL producing E. coli. His urine cultures positive for gram-negative bacillus. His sputum cultures also positive for gram-negative bacillus. Currently is on IV dependent. In terms of his breathing, the patient has no major respiratory distress at rest. He is using a high flow oxygen at an FiO2 of 70% with a flow rate of 50 and his pulse ox is around 96%. His chest x-ray shows limited bibasilar pulmonary infiltrates typical of an underlying pneumonia. He has quite pulmonary restriction and pulmonary insufficiency related to his quadriplegia. He is coughing mechanism is weak and poor. He is arousable. He is awake. He follows simple commands. He continues to be on DuoNeb nebulized treatments around the clock. He is on IV Merrem. He is also receiving IV Solu Medrol 40 mg every 8 hours. Clinically he is somnolent but is arousable. He is afebrile. No other significant events over the past 24 hours. On today's evaluation of 09/21/2018, the patient is doing worse compared to yesterday. The patient has patient is quadriplegic 82-year-old male patient who came into the hospital because of a bilateral pneumonia and recurrent urinary tract infection. For now the patient is an acute hypoxic respiratory failure. He is on high flow oxygen and the flow is at 15 L with an FiO2 of 70%, and the follow-up chest x-ray from today shows a new right upper lobe pneumonia in addition to a left basilar opacity and this is consistent with multifocal pneumonia. There is trace pleural effusion lung bases bilaterally. The patient is currently on IV Merrem. The sputum Gram stain and culture at shown E. coli. The patient has a very weak cough. He has a congested chest. Unable to bring up sputum and unable to perform adequate pulmonate toileting. The patient is on bronchodilators around the clock. The patient is also on IV Solu-Medrol. In terms of urine checked infection, the patient was found to have pseudomonas aeruginosa which is again sensitive to meropenem. The antibiotic coverage is adequate for now. I suggest stepping up the antibiotic treatment to cover vancomycin special with the worsening of the pulmonary infiltrates on today's chest x-ray. A superimposed staphylococcal pneumonia cannot be completely excluded despite the fact that the patient has been found to have E. coli in the sputum and antibiotic coverage has been adequate for now. Based on his decline in overall pulmonary status, I contacted the daughter and her nurse practitioner informed the daughter about the above-mentioned changes. There is concern that the patient may ultimately want to full-blown respiratory failure requiring intubation mechanical ventilation. The daughter wanted to proceed with any intervention needed to continue with his care including intubation mechanical ventilation if needed. For now, the patient is lethargic, slow in answering questions, extremely weak, has a very poor cough and mechanism as he is being treated for his underlying urine checked infection bilateral pneumonia. Also, a swallow evaluation was done and the patient did not pass and he is considered to be a high-risk for aspiration. For that reason, the patient is not also meeting his nutritional requirements. On today's evaluation of 09/22/2018, the patient is being seen in the follow-up. He is in acute hypoxic respiratory failure the patient developed bilateral pneumonia felt to be related to an aspiration. The patient also has an underlying UTI. The patient this morning was on much was a high flow oxygen at 45%. He is pulse oxing above 94%. Based on that I dropped the FiO2 down to 35% and currently his FiO2 is at 40% to maintain a saturation above 90%. The chest x-ray showed some limited improvement in the right upper lobe consolidation although there is still some bilateral lower lobe multifocal pneumonia. The patient remains on IV Merrem. Vancomycin was added. Sputum Gram stain and culture at shown E. coli earlier. He has a very weak cough. Fact he is not coughing at all. His mucous is dry. He is mainly muscle breathing. A Dobbhoff will be inserted as the patient has not been able to tolerate any diet as the patient failed a bedside swallow evaluation that was done by speech pathology. Meanwhile, he remains on Merrem regarding E. coli in the sputum and pseudomonas aeruginosa in the urine as the patient is suspected of underlying UTI. His CODE STATUS remains full. He is receiving IV fluids in the form of D5 0.9 at the rate of 100 mL an hour. The patient is producing adequate amount of urine output. No fever. No chills. No hemodynamic instability. He did have some limited hypothermic yesterday which subsequently improved. He is very sluggish. He is hardly responding to any verbal commands. She does wiggle his fingers upon commands. No cough and mechanism. Objective - Vital Signs Vital signs: Vital Signs Temp 98.4 F 09/22/18 12:00 Pulse 88 09/22/18 15:55 Resp 17 09/22/18 15:20 BP 136/79 09/22/18 15:00 Pulse Ox 90 L 09/22/18 15:38 Intake & Output 09/21/18 09/22/18 09/22/18 18:59 06:59 18:59 Intake Total 1550 1350 1100 Output Total 1070 1675 1725 Balance 480 -354 -017 Weight 74.1 kg 71 kg 71 kg Intake: IV 1100 1350 1100 Dextrose 5%-0.9% NaCl 1, 1100 1000 900 000 ml @ 100 mls/hr IV . Q10H MERRY Rx#:[id number] Magnesium Sulfate-D5w Pmx 100 1 gm In Dextrose/Water 1 100ml.bag @ 100 mls/hr IVPB Q1H MERRY Rx#: [id number] Meropenem 1 gm In Sodium 100 Chloride 0.9% 100 ml @ 200 mls/hr IVPB Q8HR MERRY Rx#:[id number] Potassium Chloride 20 meq 100 In Water For Injection 1 100ml.bag @ 50 mls/hr IVPB Q2H MERRY Rx#: [id number] Vancomycin 1,500 mg In 250 Sodium Chloride 0.9% 250 ml @ 125 mls/hr IVPB Q12H MERRY Rx#:[id number] Intake, IV Titration 450 Amount Magnesium Sulfate-D5w Pmx 100 1 gm In Dextrose/Water 1 100ml.bag @ 100 mls/hr IVPB Q1H MERRY Rx#: [id number] Meropenem 1 gm In Sodium 100 Chloride 0.9% 100 ml @ 200 mls/hr IVPB Q8HR MERRY Rx#:[id number] Vancomycin 1,500 mg In 250 Sodium Chloride 0.9% 250 ml @ 125 mls/hr IVPB Q12H MERRY Rx#:[id number] Output: Urine 1070 1675 1725 Other: Voiding Method Indwelling Catheter Indwelling Catheter Indwelling Catheter # Bowel Movements 1 - Exam Constitutional: The patient seems to be in mild degree of respiratory distress. He has a weak cough. He has having difficulties in controlling his respiratory secretions., the patient is wearing a high flow oxygen for now. He is not using his is and muscles of breathing for the time being. The patient is on high flow oxygen at FiO2 of 40%. Eyes: Anicteric sclerae, moist conjunctiva, no lid-lag, PERRLA ENMT: NC/AT,Oropharynx clear, no erythema or exudates. The patient has significant valgus and his oral mucosa. No thrush seen. Neck:Supple, FROM, no masses, or JVD, No carotid bruits; No thyromegaly Lungs: Inspiratory and expiratory rhonchi and coarse breath sounds, Normal respiratory effort, no accessory muscle use currently on AirVO2 50 L. The breath sounds are markedly diminished. Crackles are appreciated throughout the lung petersen specially in the lower lobes bilaterally. Scattered rhonchi heard throughout the lung petersen bilaterally. Cardiovascular: Heart regular in rate and rhythm, No murmurs, gallops, or rubs no peripheral edema Abdominal: Soft Nontender, nom distended, no guarding, no rebound or rigidity, Normoactive bowel sounds No hepatomegaly, No splenomegaly, No palpable mass No abdominal wall hernia noted Skin: Normal temperature, tone, texture, turgor, No induration No subcutaneous nodules, No rash, lesions, No ulcers Extremities:No digital cyanosis No clubbing, Pedal pulses intact and symmetrical Radial pulses intact and symmetrical Normal gait and station, No calf tenderness Neuro: Quadriplegic, with flexion contractures and atrophy of lower extremities, the patient still not as conversive or functional , yet he is arousable and is occasionally following simple commands. He does have some motor functions and his left upper extremity and was told and he was able to feed himself. Currently is nothing by mouth. The patient's overall neurologic functions have remained stable and unchanged compared to yesterday. - Labs CBC & Chem 7: 09/22/18 04:40 09/22/18 04:40 Labs: Abnormal Lab Results - Last 24 Hours (Table) 09/21/18 09/21/18 09/22/18 Range/Units 17:53 23:26 04:40 RBC 3.25 L (4.30-5.90) m/uL Hgb 10.5 L (13.0-17.5) gm/dL Hct 32.8 L (39.0-53.0) % MCV 101.0 H (80.0-100.0) fL Plt Count 71 L (150-450) k/uL Lymphocytes # 0.3 L (1.0-4.8) k/uL Potassium (3.5-5.1) mmol/L Chloride (98-107) mmol/L Creatinine (0.66-1.25) mg/dL Glucose (74-99) mg/dL POC Glucose (mg/dL) 122 H 137 H (75-99) mg/dL Calcium (8.4-10.2) mg/dL Phosphorus (2.5-4.5) mg/dL Total Protein (6.3-8.2) g/dL Albumin (3.5-5.0) g/dL 09/22/18 09/22/18 09/22/18 Range/Units 04:40 05:47 11:42 RBC (4.30-5.90) m/uL Hgb (13.0-17.5) gm/dL Hct (39.0-53.0) % MCV (80.0-100.0) fL Plt Count (150-450) k/uL Lymphocytes # (1.0-4.8) k/uL Potassium 3.4 L (3.5-5.1) mmol/L Chloride 108 H (98-107) mmol/L Creatinine 0.63 L (0.66-1.25) mg/dL Glucose 139 H (74-99) mg/dL POC Glucose (mg/dL) 140 H 118 H (75-99) mg/dL Calcium 7.8 L (8.4-10.2) mg/dL Phosphorus 2.0 L (2.5-4.5) mg/dL Total Protein 4.3 L (6.3-8.2) g/dL Albumin 2.2 L (3.5-5.0) g/dL Microbiology - Last 24 Hours (Table) 09/18/18 17:25 Blood Culture - Preliminary Blood No Growth after 72 hours Assessment and Plan Plan: Assessment 1 pseudomonas aeruginosa urinary tract infection currently on IV meropenem. 2 multilobar pneumonia with worsening in pulmonary infiltrates and some limited improvement in the right upper lobe his outpatient today's chest x-ray. The patient is on IV Merrem and vancomycin. He remains on high flow oxygen with an FiO2 of 40% and were unable to cut down the FiO2 any further because of his high oxygen requirement and the saturation of the lower oxygen FiO2. 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 coli, current E. coli in the sputum has sensitive to Merrem. Most recent urinary cultures showing pseudomonas aeruginosa. 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 Currently the patient is off anticoagulation. The patient was receiving Coumadin and Coumadin is currently on hold. We'll provide the patient Lovenox for his previous history of DVT at a dose of 1.5 mg every 24 hours. 14 failed swallow evaluation patient is currently nothing by mouth. Plan Aggressive pulmonary toileting. Provide the patient incentive spirometer. Continue same antibiotic coverage which includes a combination of Merrem and vancomycin. Repeat chest x-ray in the morning. Unfortunately the patient is still requiring high flow oxygen. Continue aggressive pulmonary toileting and frequent suctioning. Insert a Dobbhoff catheter is start the patient enteral feeding for nutritional support. Continue Lovenox 1.5 mg per KG per 24 hour. Continue IV Lasix. Prognosis very poor baseline above-mentioned comorbidities. High likely that the patient would failed and required intubation mechanical ventilation. This will be discussed awith the daughter and I'm going to intubate the patient electively by tomorrow if there is no improvement in his overall condition. We'll repeat a chest x-ray in the morning. We'll continue monitoring this patient's progress and will make further recommendations based on his overall condition.
--- NOTE | 2018-09-22 17:19 | XR ---
EXAMINATION TYPE: XR chest 1V portable DATE OF EXAM: 09/22/2018 COMPARISON: 09/22/2018 today HISTORY: Check tube placement TECHNIQUE: Single frontal view of the chest is obtained. FINDINGS: There is patchy infiltrate and atelectasis in the right upper lobe and also left lower lob e. There is no heart failure. Heart is enlarged. There are chest leads. There is a nasogastric tube that appears to be in the right lower lobe bronchus. IMPRESSION: Malposition of the nasogastric tube in the right lower lobe bronchus. Infiltrates and atelectasis in both lungs similar to exam earlier today.
[2018-09-22 19:06] LABS: Glucose,Whole Blood 128 mg/dL (75-99)
[2018-09-22] MEDS: hydrALAZINE HCL 20 MG/ML 1 ML VIAL IVP PRN (20:12)
--- NOTE | 2018-09-22 21:57 | PN ---
PROGRESS NOTE DATE OF SERVICE: 09/22/2018. REASON FOR FOLLOWUP: Pseudomonas urinary tract infection and pneumonia. INTERVAL HISTORY: The patient is currently afebrile. The patient is hemodynamically stable still requiring high-flow oxygen. No vomiting has been noticed or any diarrhea. PHYSICAL EXAMINATION: Blood pressure 157/93 with a pulse of 90, temperature 96.8. He is 94% on high-flow oxygen. General description is an elderly male lying in bed in no distress. Respiratory system: Unlabored breathing with decreased breath sounds at the bases. No wheeze. Heart S1, S2. Regular rate and rhythm. ABDOMEN: Soft. No tenderness. Extremities: No edema of the feet. LABS: Hemoglobin is 10.5, white count 4.3, BUN of 18, creatinine 0.63. DIAGNOSTIC IMPRESSION AND PLAN: Patient with acute respiratory failure which is likely a component of pneumonia. Sputum has been Rosalie E coli likely aspiration pneumonitis. The patient did have multiple antibiotic allergies and the patient is currently covered with meropenem covering his pseudomonas UTI as well in view of recurrent pneumonia, vanco was added that will be continued for now. We will try to obtain another sputum so we can narrow down the antibiotics. Continue to monitor his kidney function closely. Continue supportive care. MMODL / IJN: [id number] /
[2018-09-22] MEDS: POTASSIUM CHLORIDE 10 MEQ in WATER FOR INJECTION 1 100ML.BAG IVPB SCH (23:17)
[2018-09-22 23:21] LABS: Glucose,Whole Blood 125 mg/dL (75-99)
--- NOTE | 2018-09-22 23:21 | PN ---
PROGRESS NOTE DATE OF SERVICE: 09/22/2018 PRESENT COMPLAINT: Tired. INTERVAL HISTORY: Patient admitted in the ICU. Has chronic quadriplegia. Bed bound. There is a suprapubic catheter at the baseline with some function on the right hand. incontinent. Patient admitted with sepsis, pneumonia, UTI and Coumadin toxicity. Remains in the ICU. The patient remains on but down to 35%. Does open his eyes. His telemetry remains in sinus rhythm. REVIEW OF SYSTEMS: Cannot be done as the patient is still rather tired and lethargic. MEDICATIONS: Current medications reviewed and include: DuoNeb, IV Lasix, Synthroid, IV meropenem, vancomycin. PHYSICAL EXAMINATION: VITAL SIGNS: Temperature 98.4, pulse 72, respiration 18, blood pressure 112/96, pulse ox 94 percent on high-flow nasal cannula 35%. GENERAL APPEARANCE: Propped up in bed, a bit more awake than yesterday. EYES: Pupils equal. Conjunctivae pale. HEENT: Oral cavity is dry. High-flow nasal cannula in place. NECK: JVD unable to assess. Mass not palpable. RESPIRATORY: Effort increased. LUNGS: Diminished breath sounds. Occasional crackles. CARDIOVASCULAR: First and second sounds normal. No edema. ABDOMEN: Soft, nontender. Liver and spleen not palpable. NEUROLOGICAL: Only slow movement in the right upper extremity. The patient has a suprapubic catheter. INVESTIGATIONS: White count 4.3, hemoglobin 10.5, platelets 71,potassium 3.4, BUN 18, creatinine 0.63. ASSESSMENT: 1. Aspiration pneumonia, bilateral multilobar slow to respond. 2. Acute hypoxic respiratory failure from above, requiring high-flow oxygen, currently on 35% with air bone. 3. Essential hypertension. 4. Chronic quadriplegia with residual function of the right upper arm at baseline. 5. Neurogenic bladder with chronic suprapubic catheter. 6. Acute Coumadin toxicity, reversed with vitamin K. 7. Acute urinary tract infection from suprapubic catheter and cystitis with cultures positive for Pseudomonas Enterococcus faecalis. 8. Acute metabolic encephalopathy from above. 9. Peripheral neuropathy. 10.FULL CODE. PLAN: Continue current medication and treatment plan, antibiotics, supportive care is to continue. The patient still remains rather ill. MMODL / IJN: [id number] /
[2018-09-23] MEDS: MEROPENEM 1 GM in SODIUM CHLORIDE 0.9% 100 ML IVPB SCH ×3 (00:52→14:50)
[2018-09-23] MEDS: POTASSIUM CHLORIDE 10 MEQ in WATER FOR INJECTION 1 100ML.BAG IVPB SCH ×3 (00:55→04:12)
[2018-09-23] MEDS: DEXTROSE 5%-0.9% NACL 1,000 ML IV SCH ×2 (04:12→14:50)
[2018-09-23] MEDS: hydrALAZINE HCL 20 MG/ML 1 ML VIAL IVP PRN ×2 (04:23→13:31)
[2018-09-23 05:49] LABS: Glucose,Whole Blood 97 mg/dL (75-99)
[2018-09-23 06:07] LABS: HCT 34.3 % (39.0-53.0); HGB 10.9 gm/dL (13.0-17.5); Hypochromasia Slight; MCH 31.9 pg (25.0-35.0); MCHC 31.8 g/dL (31.0-37.0); MCV 100.4 fL (80.0-100.0); Macrocytosis Slight; Mean Platelet Volume 7.7; Platelet Count 101 k/uL (150-450); RBC 3.42 m/uL (4.30-5.90); RDW 15.2 % (11.5-15.5)
[2018-09-23 06:20] LABS: Anion Gap 1 mmol/L; Blood Urea Nitrogen 17 mg/dL (9-20); Calcium 7.7 mg/dL (8.4-10.2); Carbon Dioxide 28 mmol/L (22-30); Chloride 107 mmol/L (98-107); Glucose 84 mg/dL (74-99); Magnesium 1.8 mg/dL (1.6-2.3); Sodium 136 mmol/L (137-145)
[2018-09-23 06:36] LABS: Potassium 6.4 mmol/L (3.5-5.1)
[2018-09-23 07:38] LABS: Anion Gap 3 mmol/L; Blood Urea Nitrogen 18 mg/dL (9-20); Calcium 7.8 mg/dL (8.4-10.2); Carbon Dioxide 27 mmol/L (22-30); Chloride 109 mmol/L (98-107); Glucose 102 mg/dL (74-99); Potassium 3.8 mmol/L (3.5-5.1); Sodium 139 mmol/L (137-145)
[2018-09-23] MEDS: CHOLECALCIFEROL 400 UNIT TAB PO SCH (07:53)
[2018-09-23] MEDS: MULTIVITAMINS, THERA 1 EACH TAB PO SCH (07:54)
[2018-09-23] MEDS: guaiFENesin 600 MG TABLET.ER PO SCH ×2 (07:54→21:23)
[2018-09-23] MEDS: IPRATROPIUM-ALBUTEROL 3 ML NEB INHALATION SCH ×4 (08:11→19:41)
[2018-09-23] MEDS: LEVOTHYROXINE IVP 100 MCG/5 ML VIAL IV SCH (08:12)
[2018-09-23] MEDS: FUROSEMIDE 10 MG/ML 2 ML VIAL IV SCH (08:14)
[2018-09-23] MEDS: PANTOPRAZOLE 40 MG/10 ML VIAL IVP SCH (08:15)
[2018-09-23] MEDS: ENOXAPARIN 100 MG/ML SYRINGE SQ SCH (08:16)
--- NOTE | 2018-09-23 08:19 | XR ---
EXAMINATION TYPE: XR chest 1V DATE OF EXAM: 09/23/2018 COMPARISON: 09/22/2018 HISTORY: 82-year-old male follow-up pneumonia TECHNIQUE: Single frontal view of the chest is obtained. FINDINGS: Patient is rotated towards the left altering the normal cardiac and mediastinal contours. Heart remai ns upper limits of normal in size. Some increasing right upper lobe and left basilar density. Possibl e small bilateral pleural effusions. IMPRESSION: 1. Persistent and slightly worsening airspace disease right upper lobe and left base. 2. Suspect underlying small effusions.
[2018-09-23 08:51] LABS: ABG Base Excess 7.5 mmol/L; ABG HCO3 31 mmol/L (21-25); ABG Oxygen Saturation 93.8 % (94-97); ABG PCO2 40 mmHg (35-45); ABG PH 7.49 (7.35-7.45); ABG PO2 61 mmHg (83-108); ABG TCO2 32 mmol/L (19-24)
[2018-09-23] MEDS ORDERED: VANCOMYCIN TROUGH DUE 1 EACH MISC MISCELLANE ONE (09:30)
[2018-09-23] MEDS: POTASSIUM PHOSPHATE 10 MMOL in SODIUM CHLORIDE 0.9% 250 ML IV SCH ×3 (10:00→15:47)
[2018-09-23] MEDS: VANCOMYCIN 1,500 MG in SODIUM CHLORIDE 0.9% 250 ML IVPB SCH (10:50)
[2018-09-23] MEDS ORDERED: VANCOMYCIN IV PER PHARMACY 1 EACH MISC MISCELLANE PRN (10:58)
--- NOTE | 2018-09-23 11:22 | XR ---
EXAMINATION TYPE: XR chest 1V portable DATE OF EXAM: 09/23/2018 COMPARISON: 09/23/2018 HISTORY: Dobbhoff tube placement. TECHNIQUE: Single frontal view of the chest is obtained. FINDINGS: There is a persistent right upper lung interstitial opacity with sparing of the lung apex. Biapical pleural thickening is noted. Retrocardiac airspace disease and trace pleural effusions pete in. There is interval insertion of a Dobbhoff tube terminating just beyond the gastroesophageal junction although does notably course into the right upper quadrant. This may be secondary to patient rotation . IMPRESSION: 1. Dobbhoff tube terminates beyond the hemidiaphragms although terminates distally in the right upper quadrant. The stomach and gastroesophageal junction may be shifted to patient rotation. Confirm aspi ration of gastric secretions. 2. Persistent retrocardiac opacity, trace pleural effusions (left greater than right) and right upper lobe airspace disease most compatible with pneumonia.
[2018-09-23 12:10] LABS: Glucose,Whole Blood 132 mg/dL (75-99)
[2018-09-23] MEDS ORDERED: HALOPERIDOL LACTATE 5 MG/ML 1 ML VIAL IVP ONE (13:04)
--- NOTE | 2018-09-23 16:25 | P.PN ---
Subjective Progress Note Date: 09/23/18 On today's evaluation, I'm seeing this patient for a follow-up. He is a quadriplegic male patient 8 years of age who presented to the hospital because of increased shortness of breath, cough and and he was diagnosed having a pneumonia and urinary tract infection. He is in the intensive care unit. He manriquez s been infected in the past with gram-negative bacteria including an ESBL producing E. coli. His urine cultures positive for gram-negative bacillus. His sputum cultures also positive for gram-negative bacillus. Currently is on IV dependent. In terms of his breathing, the patient has no major respiratory distress at rest. He is using a high flow oxygen at an FiO2 of 70% with a flow rate of 50 and his pulse ox is around 96%. His chest x-ray shows limited bibasilar pulmonary infiltrates typical of an underlying pneumonia. He has quite pulmonary restriction and pulmonary insufficiency related to his quadriplegia. He is coughing mechanism is weak and poor. He is arousable. He is awake. He follows simple commands. He continues to be on DuoNeb nebulized treatments around the clock. He is on IV Merrem. He is also receiving IV Solu Medrol 40 mg every 8 hours. Clinically he is somnolent but is arousable. He is afebrile. No other significant events over the past 24 hours. On today's evaluation of 09/21/2018, the patient is doing worse compared to yesterday. The patient has patient is quadriplegic 82-year-old male patient who came into the hospital because of a bilateral pneumonia and recurrent urinary tract infection. For now the patient is an acute hypoxic respiratory failure. He is on high flow oxygen and the flow is at 15 L with an FiO2 of 70%, and the follow-up chest x-ray from today shows a new right upper lobe pneumonia in addition to a left basilar opacity and this is consistent with multifocal pneumonia. There is trace pleural effusion lung bases bilaterally. The patient is currently on IV Merrem. The sputum Gram stain and culture at shown E. coli. The patient has a very weak cough. He has a congested chest. Unable to bring up sputum and unable to perform adequate pulmonate toileting. The patient is on bronchodilators around the clock. The patient is also on IV Solu-Medrol. In terms of urine checked infection, the patient was found to have pseudomonas aeruginosa which is again sensitive to meropenem. The antibiotic coverage is adequate for now. I suggest stepping up the antibiotic treatment to cover vancomycin special with the worsening of the pulmonary infiltrates on today's chest x-ray. A superimposed staphylococcal pneumonia cannot be completely excluded despite the fact that the patient has been found to have E. coli in the sputum and antibiotic coverage has been adequate for now. Based on his decline in overall pulmonary status, I contacted the daughter and her nurse practitioner informed the daughter about the above-mentioned changes. There is concern that the patient may ultimately want to full-blown respiratory failure requiring intubation mechanical ventilation. The daughter wanted to proceed with any intervention needed to continue with his care including intubation mechanical ventilation if needed. For now, the patient is lethargic, slow in answering questions, extremely weak, has a very poor cough and mechanism as he is being treated for his underlying urine checked infection bilateral pneumonia. Also, a swallow evaluation was done and the patient did not pass and he is considered to be a high-risk for aspiration. For that reason, the patient is not also meeting his nutritional requirements. On today's evaluation of 09/22/2018, the patient is being seen in the follow-up. He is in acute hypoxic respiratory failure the patient developed bilateral pneumonia felt to be related to an aspiration. The patient also has an underlying UTI. The patient this morning was on much was a high flow oxygen at 45%. He is pulse oxing above 94%. Based on that I dropped the FiO2 down to 35% and currently his FiO2 is at 40% to maintain a saturation above 90%. The chest x-ray showed some limited improvement in the right upper lobe consolidation although there is still some bilateral lower lobe multifocal pneumonia. The patient remains on IV Merrem. Vancomycin was added. Sputum Gram stain and culture at shown E. coli earlier. He has a very weak cough. Fact he is not coughing at all. His mucous is dry. He is mainly muscle breathing. A Dobbhoff will be inserted as the patient has not been able to tolerate any diet as the patient failed a bedside swallow evaluation that was done by speech pathology. Meanwhile, he remains on Merrem regarding E. coli in the sputum and pseudomonas aeruginosa in the urine as the patient is suspected of underlying UTI. His CODE STATUS remains full. He is receiving IV fluids in the form of D5 0.9 at the rate of 100 mL an hour. The patient is producing adequate amount of urine output. No fever. No chills. No hemodynamic instability. He did have some limited hypothermic yesterday which subsequently improved. He is very sluggish. He is hardly responding to any verbal commands. She does wiggle his fingers upon commands. No cough and mechanism. On today's evaluation 09/23/2018, the patient is essentially the same without any major change in his condition over the past 24 hours. I will say probably is more lethargic and less responsive compared to yesterday. He remains nothing by mouth. Several attempts were done to inserted up of catheter which failed a Dobbhoff catheter was not being advanced into the esophagus and was being driven to the right mainstem bronchus. Based on this, no enteral feeding was initiated. I have put a consultation note for gastroenterology to insert a PEG tube as it is something that will be needed for enteral feeding and nutritional support. Meanwhile, the patient remains on high flow oxygen. The flow is at 4 L and the patient FiO2 at 50%. She is afebrile. He is hemodynamically stable. He is on broad-spectrum antibiotics and the patient is still on a combination of vancomycin and Merrem. Patient is resting comfortable. No signs of any respiratory distress. The chest x-ray from today showed persistent right upper lobe pulmonary infiltration and left lower lobe infiltration. The Dobbhoff was noted to be in the right mainstem bronchus and it was removed. Blood gases from today showed a pH of 7.49 with a pCO2 of 40 and pO2 of 61 and this was done of 50% FiO2. Objective - Vital Signs Vital signs: Vital Signs Temp 97.1 F L 09/23/18 12:00 Pulse 114 H 09/23/18 15:19 Resp 22 09/23/18 15:00 BP 151/91 09/23/18 15:00 Pulse Ox 95 09/23/18 15:19 Intake & Output 09/22/18 09/23/18 09/23/18 18:59 06:59 18:59 Intake Total 1500 1564 1650 Output Total 1924 2069 1735 Balance -425 -506 -85 Weight 71 kg 72.6 kg Intake: IV 1500 1550 1650 Dextrose 5%-0.9% NaCl 1, 1200 800 800 000 ml @ 100 mls/hr IV . Q10H [facility] Rx#:[id number] Magnesium Sulfate-D5w Pmx 100 1 gm In Dextrose/Water 1 100ml.bag @ 100 mls/hr IVPB Q1H [facility] Rx#: [id number] Meropenem 1 gm In Sodium 100 100 Chloride 0.9% 100 ml @ 200 mls/hr IVPB Q8HR [facility] Rx#:[id number] Potassium Chloride 10 meq 500 In Water For Injection 1 100ml.bag @ 100 mls/hr IVPB Q1HR [facility] Rx#: [id number] Potassium Chloride 20 meq 100 In Water For Injection 1 100ml.bag @ 50 mls/hr IVPB Q2H [facility] Rx#: [id number] Potassium Phosphate 10 750 mmol In Sodium Chloride 0 .9% 250 ml @ 125 mls/hr IV Q2H [facility] Rx#:[id number] Vancomycin 1,500 mg In 250 Sodium Chloride 0.9% 250 ml @ 125 mls/hr IVPB Q12H [facility] Rx#:[id number] Tube Feeding 14 Output: Urine 1924 2069 1734 Other: Voiding Method Indwelling Catheter Indwelling Catheter - Exam Constitutional: The patient seems to be in mild degree of respiratory distress. He has a weak cough. He has having difficulties in controlling his respiratory secretions., the patient is wearing a high flow oxygen for now. He is not using his is and muscles of breathing for the time being. The patient is on high flow oxygen at FiO2 of 40%. Eyes: Anicteric sclerae, moist conjunctiva, no lid-lag, PERRLA ENMT: NC/AT,Oropharynx clear, no erythema or exudates. The patient has significant valgus and his oral mucosa. No thrush seen. Neck:Supple, FROM, no masses, or JVD, No carotid bruits; No thyromegaly Lungs: Inspiratory and expiratory rhonchi and coarse breath sounds, Normal respiratory effort, no accessory muscle use currently on AirVO2 50 L. The breath sounds are markedly diminished. Crackles are appreciated throughout the lung petersen specially in the lower lobes bilaterally. Scattered rhonchi heard throughout the lung petersen bilaterally. Cardiovascular: Heart regular in rate and rhythm, No murmurs, gallops, or rubs no peripheral edema Abdominal: Soft Nontender, nom distended, no guarding, no rebound or rigidity, Normoactive bowel sounds No hepatomegaly, No splenomegaly, No palpable mass No abdominal wall hernia noted Skin: Normal temperature, tone, texture, turgor, No induration No subcutaneous nodules, No rash, lesions, No ulcers Extremities:No digital cyanosis No clubbing, Pedal pulses intact and symmetrical Radial pulses intact and symmetrical Normal gait and station, No calf tenderness Neuro: Quadriplegic, with flexion contractures and atrophy of lower extremities, the patient still not as conversive or functional , yet he is arousable and is occasionally following simple commands. He does have some motor functions and his left upper extremity and was told and he was able to feed himself. Currently is nothing by mouth. The patient's overall neurologic functions have remained stable and unchanged compared to yesterday. - Labs CBC & Chem 7: 09/23/18 05:06 09/23/18 07:04 Labs: Abnormal Lab Results - Last 24 Hours (Table) 09/22/18 09/22/18 09/23/18 Range/Units 19:05 23:20 05:06 RBC 3.42 L (4.30-5.90) m/uL Hgb 10.9 L (13.0-17.5) gm/dL Hct 34.3 L (39.0-53.0) % MCV 100.4 H (80.0-100.0) fL Plt Count 101 L (150-450) k/uL ABG pH (7.35-7.45) ABG pO2 (83-108) mmHg ABG HCO3 (21-25) mmol/L ABG Total CO2 (19-24) mmol/L ABG O2 Saturation (94-97) % Sodium (137-145) mmol/L Potassium (3.5-5.1) mmol/L Chloride (98-107) mmol/L Creatinine (0.66-1.25) mg/dL Glucose (74-99) mg/dL POC Glucose (mg/dL) 128 H 125 H (75-99) mg/dL Calcium (8.4-10.2) mg/dL Phosphorus (2.5-4.5) mg/dL Vancomycin Trough ug/mL 09/23/18 09/23/18 09/23/18 Range/Units 05:06 07:04 07:04 RBC (4.30-5.90) m/uL Hgb (13.0-17.5) gm/dL Hct (39.0-53.0) % MCV (80.0-100.0) fL Plt Count (150-450) k/uL ABG pH (7.35-7.45) ABG pO2 (83-108) mmHg ABG HCO3 (21-25) mmol/L ABG Total CO2 (19-24) mmol/L ABG O2 Saturation (94-97) % Sodium 136 L (137-145) mmol/L Potassium 6.4 H* (3.5-5.1) mmol/L Chloride 109 H (98-107) mmol/L Creatinine 0.60 L 0.56 L (0.66-1.25) mg/dL Glucose 102 H (74-99) mg/dL POC Glucose (mg/dL) (75-99) mg/dL Calcium 7.7 L 7.8 L (8.4-10.2) mg/dL Phosphorus 1.0 L* 0.9 L* (2.5-4.5) mg/dL Vancomycin Trough ug/mL 09/23/18 09/23/18 09/23/18 Range/Units 08:49 09:33 12:08 RBC (4.30-5.90) m/uL Hgb (13.0-17.5) gm/dL Hct (39.0-53.0) % MCV (80.0-100.0) fL Plt Count (150-450) k/uL ABG pH 7.49 H (7.35-7.45) ABG pO2 61 L (83-108) mmHg ABG HCO3 31 H (21-25) mmol/L ABG Total CO2 32 H (19-24) mmol/L ABG O2 Saturation 93.8 L (94-97) % Sodium (137-145) mmol/L Potassium (3.5-5.1) mmol/L Chloride (98-107) mmol/L Creatinine (0.66-1.25) mg/dL Glucose (74-99) mg/dL POC Glucose (mg/dL) 132 H (75-99) mg/dL Calcium (8.4-10.2) mg/dL Phosphorus (2.5-4.5) mg/dL Vancomycin Trough 32.7 H* ug/mL Microbiology - Last 24 Hours (Table) 03/16/19 17:25 Blood Culture - Preliminary Blood No Growth after 96 hours Assessment and Plan Plan: Assessment 1 pseudomonas aeruginosa urinary tract infection currently on IV meropenem. 2 multilobar pneumonia with worsening in pulmonary infiltrates and some limited improvement in the right upper lobe his outpatient today's chest x-ray. The patient is on IV Merrem and vancomycin. He remains on high flow oxygen with an FiO2 of 50% and were unable to cut down the FiO2 any further because of his high oxygen requirement and the saturation of the lower oxygen FiO2. The patient continues to demonstrate bilateral pulmonary infiltrates with consolidation of the right upper lobe and the left lower lobe unchanged compared to yesterday. 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 coli, current E. coli in the sputum has sensitive to Merrem. Most recent urinary cultures showing pseudomonas aeruginosa. 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 Currently the patient is off anticoagulation. The patient was receiving Coumadin and Coumadin is currently on hold. We'll provide the patient Lovenox for his previous history of DVT at a dose of 1.5 mg every 24 hours. 14 failed swallow evaluation patient is currently nothing by mouth. Plan Unable to insert a Dobbhoff. This was technically very difficult we will consult gastroenterology and I think the patient would probably better off a PEG tube for enteral feeding and nutritional support. For this reason, distant [facility] will be consulted and the family will be informed of the need of a PEG tube. Continue same antibiotic coverage. Continue high flow oxygen. Continue the supportive care. Prognosis poor based on the above-mentioned comorbidities.
[2018-09-23 16:56] LABS: Glucose,Whole Blood 145 mg/dL (75-99)
[2018-09-23] MEDS: DILTIAZEM 125 MG in SODIUM CHLORIDE 0.9% 100 ML IV SCH (17:50)
--- NOTE | 2018-09-23 22:13 | PN ---
PROGRESS NOTE DATE OF SERVICE: 09/23/2018 PRESENTING COMPLAINT: Tired. INTERVAL HISTORY: Patient remains in the ICU, has chronic quadriplegia, bed-bound, has a chronic suprapubic catheter, some function in the right hand at baseline, and doubly incontinent. Admitted with sepsis, pneumonia, UTI, Coumadin toxicity. Patient remains on the AIRVO with an FiO2 of 50%. Remains in sinus rhythm. Barely opens his eyes, barely communicating. Earlier today Dr. Rivas tried the Dobbhoff but was unsuccessful. At this point the plan is for patient to have a PEG tube. Patient's daughter is at the bedside. REVIEW OF SYSTEMS: Review of systems cannot be done, as patient is non-communicative. CURRENT MEDICATIONS: Reviewed. They include: 1. DuoNeb. 2. Artificial Tears. 3. Lovenox. 4. Mucinex. 5. Synthroid. 6. IV meropenem. PHYSICAL EXAMINATION: Temperature 97.4, heart rate up to 120s, respiration 19, blood pressure 140/84, pulse ox 97% on high-flow oxygen. GENERAL APPEARANCE: Lying in bed, very tired-appearing, lethargic. Does open eyes occasionally. EYES: Pupils equal. Conjunctivae pale. HEENT: Oral cavity is dry. High-flow nasal cannula in place. NECK: JVD unable to assess. Mass not palpable. RESPIRATORY: Effort increased. LUNGS: Diminished breath sounds. Prolonged expiration. Some crackles. CARDIOVASCULAR: First and second sounds normal. No edema. ABDOMEN: Soft, non-tender. Liver and spleen not palpable. Suprapubic catheter in place. NEUROLOGICAL: Slight movement in the right upper extremity. INVESTIGATIONS: Potassium 3.8, BUN 18, creatinine 0.56. Blood gas showed pH of 7.49, PO2 of 61. Chest x-ray film, personally reviewed by me, shows airspace disease in right upper lobe and left base. ASSESSMENT: 1. Aspiration pneumonia, bilateral, multilobar, slow to respond. 2. Acute hypoxic respiratory failure from above, requiring high-flow oxygen, worsening, with now FiO2 around 51%. 3. Essential hypertension. 4. Chronic quadriplegia with residual function of the right upper arm at baseline. 5. Neurogenic bladder with chronic suprapubic catheter. 6. Acute Coumadin toxicity, reversed with vitamin K. 7. Acute urinary tract infection from suprapubic catheter with cystitis with cultures positive for pseudomonas, Enterococcus faecalis. 8. Acute metabolic encephalopathy from above. 9. Peripheral neuropathy. 10.FULL CODE. 11.Persistent atrial fibrillation. Heart rate is now rapid. PLAN: The patient will be started on a Cardizem drip. Cardiology will be consulted. Prognosis remains guarded. Did speak to the daughter at the bedside. They wish to proceed to proceed with a PEG tube. MMODL / IJN: [id number] /
--- NOTE | 2018-09-23 23:40 | PN ---
PROGRESS NOTE DATE OF SERVICE: 09/23/2018. REASON FOR FOLLOWUP: Pseudomonas urinary tract infection and aspiration pneumonia. INTERVAL HISTORY: The patient is currently afebrile. The patient remains lethargic, hemodynamically stable. Not on any pressor support. No nausea or vomiting has been noticed or any diarrhea. PHYSICAL EXAMINATION: Blood pressure is 138/79 with a pulse of 90, temperature 98.9. He is 95% on high-flow oxygen. General description is an elderly male lying in bed in no distress. RESPIRATORY SYSTEM: Unlabored breathing with decreased breath sounds at the base. No wheeze. HEART: S1, S2. Regular rate and rhythm. ABDOMEN: Soft. No tenderness. LABS: BUN of 18, creatinine 0.56. Vancomycin level has been significantly elevated at 32.7. DIAGNOSTIC IMPRESSION AND PLAN: Patient with recurrent aspiration pneumonia with pseudomonas urinary tract infection. Patient is currently afebrile with no gram-positive. Vancomycin should be discontinued and kidney function to be monitored closely. Continue patient on meropenem at this point. Overall prognosis remains guarded. Continue with supportive care. MMODL / IJN: [id number] /
[2018-09-23 23:47] LABS: Glucose,Whole Blood 136 mg/dL (75-99)
[2018-09-24] MEDS: MEROPENEM 1 GM in SODIUM CHLORIDE 0.9% 100 ML IVPB SCH ×3 (00:18→15:52)
[2018-09-24] MEDS: DEXTROSE 5%-0.9% NACL 1,000 ML IV SCH ×3 (02:43→20:39)
[2018-09-24] MEDS: DILTIAZEM 125 MG in SODIUM CHLORIDE 0.9% 100 ML IV SCH ×2 (05:33→18:33)
[2018-09-24 06:18] LABS: Anion Gap 2 mmol/L; Blood Urea Nitrogen 15 mg/dL (9-20); Calcium 7.6 mg/dL (8.4-10.2); Carbon Dioxide 29 mmol/L (22-30); Chloride 110 mmol/L (98-107); Glucose 124 mg/dL (74-99); Magnesium 1.5 mg/dL (1.6-2.3); Phosphorus 1.7 mg/dL (2.5-4.5); Potassium 3.4 mmol/L (3.5-5.1); Sodium 141 mmol/L (137-145)
[2018-09-24 06:23] LABS: Vancomycin,Random 18.8 ug/mL
[2018-09-24 06:26] LABS: HCT 28.5 % (39.0-53.0); Hypochromasia Slight; MCH 33.5 pg (25.0-35.0); MCHC 32.9 g/dL (31.0-37.0); MCV 101.6 fL (80.0-100.0); Macrocytosis Slight; Mean Platelet Volume 7.4; RBC 2.81 m/uL (4.30-5.90); RDW 15.5 % (11.5-15.5); WBC 5.7 k/uL (3.8-10.6)
[2018-09-24 06:29] LABS: HGB 9.4 gm/dL (13.0-17.5); Platelet Count 100 k/uL (150-450)
--- NOTE | 2018-09-24 06:34 | XR ---
EXAMINATION TYPE: XR chest 1V DATE OF EXAM: 09/24/2018 CLINICAL HISTORY: Difficulty breathing and pneumonia progress study. TECHNIQUE: Single AP portable semiupright view of the chest is obtained. COMPARISON: Chest x-ray from one day earlier and older studies. FINDINGS: There is interval removal of Dobbhoff feeding catheter. Cardiac silhouette size is stable and enlarged with atherosclerotic thoracic aorta. There is chronic parenchymal change with persistent small left pleural effusion and retrocardiac opacity. There is persistent right upper lung increased interstitial markings. Osseous structures are intact. IMPRESSION: Interval removal of Dobbhoff feeding catheter. Other findings stable as there is cardiome demond with small left pleural effusion and associated left basilar atelectasis and/or infiltrate as we ll as right upper lung interstitial edema and/or infiltrate all redemonstrated.
[2018-09-24] MEDS ORDERED: Phosphorus Replacement Protoco 1 EACH MISC MISCELLANE PRN (06:37)
[2018-09-24] MEDS ORDERED: Magnesium Replacement Protocol 1 EACH MISC MISCELLANE PRN (06:37)
[2018-09-24] MEDS: MAGNESIUM SULFATE-D5W PMX 1 GM in DEXTROSE/WATER 1 100ML.BAG IVPB SCH ×2 (07:07→08:05)
[2018-09-24] MEDS: PANTOPRAZOLE 40 MG/10 ML VIAL IVP SCH (07:53)
[2018-09-24] MEDS: LEVOTHYROXINE IVP 100 MCG/5 ML VIAL IV SCH (07:53)
[2018-09-24] MEDS: IPRATROPIUM-ALBUTEROL 3 ML NEB INHALATION SCH ×4 (08:07→19:52)
[2018-09-24] MEDS: POTASSIUM PHOSPHATE 10 MMOL in SODIUM CHLORIDE 0.9% 100 ML IV SCH ×2 (09:02→13:04)
--- NOTE | 2018-09-24 09:32 | CONS ---
CONSULTATION This is a gentleman who was admitted to the hospital on the 16 of this month with UTI with Pseudomonas, also had some pneumonia. There was a question of hypothermia. This patient is a quadriplegic since 2004 following an accident and is being considered for a PEG tube. I was asked to see him mainly because he went into an atrial fibrillation with moderately rapid ventricular rate last night. This gentleman has been on Coumadin. The reason for Coumadin is unavailable. He is not able to give me any meaningful history. He has quadriplegia secondary to an accident that happened sometime in 2002 which was a work related accident. Apparently he has been on Coumadin. The reason is unclear whether it was to prevent any DVT type picture or was it because of atrial fib is unclear, but patient on his previous admission, which was only last year, there was no evidence of atrial fibrillation. He came in with a Coumadin coagulopathy, UTI, hypothermia and has been treated for these conditions. However, he went into atrial fibrillation with a moderate ventricular rate. Cardizem was initiated. At the time of my evaluation, I cannot obtain any meaningful history. Patient appears to be hemodynamically stable. His atrial fib rate is about 110 per minute. His oxygen saturation is good. They are considering a PEG tube for this gentleman. PAST MEDICAL HISTORY: Past medical history is remarkable for: 1. A work-related accident and quadriplegia since 2002. 2. History of history of polycystic kidney disease. 3. Peripheral neuropathy. 4. Recent hospitalization was for sepsis. He also had a coagulopathy. 5. He has a chronic suprapubic catheter in place. 6. He has had history of recurrent UTI. It is unclear if he had any previous atrial fibrillation or not. MEDICATIONS: His medications at home included Coumadin, levothyroxine, metoprolol 12.5 mg b.i.d., Imodium, multivitamins, acetaminophen and Dulcolax. ALLERGIES: He is allergic to CEPHALOSPORINS, CIPRO, and some PENICILLINS. PHYSICAL EXAMINATION: On examination, blood pressure is 150/80, pulse rate is 110, irregular. HEENT: Unremarkable. Fundus was not examined by me. Neck is supple. I cannot appreciate JVD. Heart exam reveals S1, S2 with a short systolic murmur. Lungs reveal diminished air entry. Abdomen is distended. He may have some free fluid. Lower extremity edema is evident. Pulses are diminished. Central nervous system exam was not performed in detail. Patient is not communicative. IMPRESSION: 1. Probable persistent atrial fibrillation, although this is new onset on this admission. Rate is about 110 per minute. 2. Pneumonia. 3. Recurrent urinary tract infection. 4. Quadriplegia because of a work-related injury in 2002 with a suprapubic catheter. RECOMMENDATIONS: Given the fact patient was on Coumadin, I believe we should anticoagulate him and therefore I will recommend Eliquis 2.5 mg b.i.d. I will obtain echocardiogram at bedside, increase the Cardizem drip to 7.5 mg b.i.d. and once he is able to take medications after PEG tube is in, we will use oral agents for rate control. I discussed my thoughts in detail with the nurse. No other family was available. MMSAYL / JEROMY: [id number] /
[2018-09-24] MEDS: guaiFENesin 600 MG TABLET.ER PO SCH ×2 (10:22→20:41)
[2018-09-24] MEDS: CHOLECALCIFEROL 400 UNIT TAB PO SCH (10:22)
[2018-09-24] MEDS: MULTIVITAMINS, THERA 1 EACH TAB PO SCH (10:22)
[2018-09-24] MEDS ORDERED: IV FLUID CONTINUATION 1,000 ML IV ONE ×2 (11:53→14:31)
--- NOTE | 2018-09-24 11:53 | P.GSCN ---
<Edilma Pérez - Last Filed: 09/24/18 11:41> History of Present Illness Consult date: 09/24/18 Reason for Consult: PEG tube placement Requesting physician: Anastasiya Rivas History of present illness: CHIEF COMPLAINT: PEG tube placement HISTORY OF PRESENT ILLNESS: 82-year-old male who was admitted to the hospital secondary to pneumonia and urinary tract infection. He remains on Airvo with increasing oxygen requirements overnight. Currently at 90% FiO2. General surgery was consulted for PEG tube placement after unsuccessful attempts at Dobbhoff insertion. Patient previously failed swallow screen performed by speech therapy. Patient examined at the bedside in the ICU. He is awake and alert. He is nonverbal, but he is able to nod his head yes or no to answer questions. He denies abdominal pain. Denies nausea or vomiting. Discussed insertion of PEG tub e with patient. Patient was asked if he wanted peg he shook his head yes. Patient asked if he had any questions about the PEG tube or the procedure in which the patient shook his head no. is not at the bedside but nursing states she signed the consent form. PAST MEDICAL HISTORY: See list. PAST SURGICAL HISTORY: See list. SOCIAL HISTORY: No illicit drug use. REVIEW OF SYSTEMS: CONSTITUTIONAL: Denies fever or chills. HEENT: Denies blurred vision, vision changes, or eye pain. Denies hemoptysis CARDIOVASCULAR: Denies chest pain or pressure. RESPIRATORY: No shortness of breath at this time. GASTROINTESTINAL: Denies nausea or vomiting. Denies abdominal pain. HEMATOLOGIC: Denies bleeding disorders. GENITOURINARY: Denies any blood in urine. SKIN: Denies pruitis. Denies rash. PHYSICAL EXAM: VITAL SIGNS: Reviewed. GENERAL: Well-developed in no acute distress. Remains on Airvo at 90% Fio2. HEENT: No sclera icterus. Extraocular movements grossly intact. Moist buccal mucosa. Head is atraumatic, normocephalic. ABDOMEN: Soft. Nondistended. Nontender. NEUROLOGIC: Nonverbal at this time but able to communicate by nodding his head yes or no. Quadriplegic. ASSESSMENT: 1. Malnutrition, patient failed swallow screen, s/p unsuccessful attempts of Dobbhoff insertion PLAN: Patient to remain NPO. Replace magnesium and potassium. Patient previously on coumadin, which has been discontinued. Last INR 1.1. Cardiology evaluated patien t and to begin Eliquis. Hold eliquis today secondary to PEG tube insertion. Bronchoscopy to be performed per pulmonary today. Patient will undergo PEG tube placement this afternoon after bronch with Dr. Alex. Nurse practitioner note has been reviewed by physician. Signing provider agrees with the documented findings, assessment, and plan of care. 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 Year Discovered:: 07/03/18 MDRO Source:: URINE Past Surgical History: Orthopedic Surgery Additional Past Surgical History / Comment(s): Placement of suprapubic catheter r/t accident 2002, has internal pump with baclofen in abdomen Past Anesthesia/Blood Transfusion Reactions: No Reported Reaction Past Psychological History: No Psychological Hx Reported Smoking Status: Never smoker Past Alcohol Use History: None Reported Past Drug Use History: None Reported - Past Family History Mother History Unknown: Yes Additional Family Medical History / Comment(s): Mother at age 20 of sepsis Medications and Allergies Home Medications Medication Instructions Recorded Confirmed Type Acetaminophen Tab [Tylenol] 650 mg PO Q4H PRN 07/03/18 09/18/18 History Calcium Carbonate [Tums] 1,000 mg PO QID PRN 07/03/18 09/18/18 History Cholecalciferol [Vitamin D3] 400 unit PO DAILY 07/03/18 09/18/18 History Cranberry 425mg 425 mg PO BID 07/03/18 09/18/18 History Loperamide [Imodium] 2 mg PO QID PRN 07/03/18 09/18/18 History Loratadine [Claritin] 10 mg PO DAILY 07/03/18 09/18/18 History Magnesium Hydroxide [Milk of 2,400 mg PO DAILY PRN 07/03/18 09/18/18 History Magnesia] Metoprolol Tartrate [Lopressor] 12.5 mg PO BID 07/03/18 09/18/18 History Multivitamins, Thera [Multivitamin 1 tab PO DAILY 07/03/18 09/18/18 History (formulary)] Na Phos,M-B/Na Phos,Di-Ba [Fleet 133 ml RECTAL DAILY PRN 07/03/18 09/18/18 History Adult] Warfarin [Coumadin] 1 mg PO [id number] 07/03/18 09/18/18 History Acetaminophen Tab [Tylenol Tab] 650 mg PO Q4H PRN 09/18/18 09/18/18 History Beneprotein Powder 7 gm PO BID 09/18/18 09/18/18 History Bisacodyl [Dulcolax] 10 mg RECTAL DAILY PRN 09/18/18 09/18/18 History Levothyroxine Sodium [Synthroid] 25 mcg PO DAILY 09/18/18 09/18/18 History guaiFENesin SYRUP 100MG/5ML 200 mg PO DIRECTED PRN 09/18/18 09/18/18 History [Robitussin] Allergies Allergy/AdvReac Type Severity Reaction Status Date / Time adhesive AdvReac Rash/Hives Verified 09/18/18 13:54 Cephalosporins AdvReac Unknown Verified 09/18/18 13:54 ciprofloxacin AdvReac Rash/Hives Verified 09/18/18 13:54 NSAIDS (Non-Steroidal AdvReac Unknown Verified 09/18/18 13:54 Anti-Inflamma Penicillins AdvReac Nausea & Verified 09/18/18 13:54 Vomiting Quinolones AdvReac Unknown Verified 09/18/18 13:54 Sulfa (Sulfonamide AdvReac Rash/Hives Verified 09/18/18 13:54 Antibiotics) Surgical - Exam Vital Signs Pulse Resp BP Pulse Ox 75 16 111/78 96 09/18/18 13:19 09/18/18 13:19 09/18/18 13:19 09/18/18 13:19 Results - Labs 09/24/18 05:35 09/24/18 05:35 Abnormal Lab Results - Last 24 Hours (Table) 09/23/18 09/23/18 09/23/18 Range/Units 12:08 16:54 23:45 RBC (4.30-5.90) m/uL Hgb (13.0-17.5) gm/dL Hct (39.0-53.0) % MCV (80.0-100.0) fL Plt Count (150-450) k/uL Potassium (3.5-5.1) mmol/L Chloride (98-107) mmol/L Creatinine (0.66-1.25) mg/dL Glucose (74-99) mg/dL POC Glucose (mg/dL) 132 H 145 H 136 H (75-99) mg/dL Calcium (8.4-10.2) mg/dL Phosphorus (2.5-4.5) mg/dL Magnesium (1.6-2.3) mg/dL 09/24/18 09/24/18 Range/Units 05:35 05:35 RBC 2.81 L (4.30-5.90) m/uL Hgb 9.4 L D (13.0-17.5) gm/dL Hct 28.5 L (39.0-53.0) % MCV 101.6 H (80.0-100.0) fL Plt Count 100 L (150-450) k/uL Potassium 3.4 L (3.5-5.1) mmol/L Chloride 110 H (98-107) mmol/L Creatinine 0.53 L (0.66-1.25) mg/dL Glucose 124 H (74-99) mg/dL POC Glucose (mg/dL) (75-99) mg/dL Calcium 7.6 L (8.4-10.2) mg/dL Phosphorus 1.7 L (2.5-4.5) mg/dL Magnesium 1.5 L (1.6-2.3) mg/dL Microbiology - Last 24 Hours (Table) 09/18/18 17:25 Blood Culture - Preliminary Blood No Growth after 120 hours Diabetes panel 09/24/18 Range/Units 05:35 Sodium 141 (137-145) mmol/L Potassium 3.4 L (3.5-5.1) mmol/L Chloride 110 H (98-107) mmol/L Carbon Dioxide 29 (22-30) mmol/L BUN 15 (9-20) mg/dL Creatinine 0.53 L (0.66-1.25) mg/dL Glucose 124 H (74-99) mg/dL Calcium 7.6 L (8.4-10.2) mg/dL Calcium panel 09/24/18 Range/Units 05:35 Calcium 7.6 L (8.4-10.2) mg/dL Phosphorus 1.7 L (2.5-4.5) mg/dL Pituitary panel 09/24/18 Range/Units 05:35 Sodium 141 (137-145) mmol/L Potassium 3.4 L (3.5-5.1) mmol/L Chloride 110 H (98-107) mmol/L Carbon Dioxide 29 (22-30) mmol/L BUN 15 (9-20) mg/dL Creatinine 0.53 L (0.66-1.25) mg/dL Glucose 124 H (74-99) mg/dL Calcium 7.6 L (8.4-10.2) mg/dL Adrenal panel 09/24/18 Range/Units 05:35 Sodium 141 (137-145) mmol/L Potassium 3.4 L (3.5-5.1) mmol/L Chloride 110 H (98-107) mmol/L Carbon Dioxide 29 (22-30) mmol/L BUN 15 (9-20) mg/dL Creatinine 0.53 L (0.66-1.25) mg/dL Glucose 124 H (74-99) mg/dL Calcium 7.6 L (8.4-10.2) mg/dL <Awais Alex - Last Filed: 09/24/18 15:49> History of Present Illness History of present illness: As above. Will place PEG tube. Surgical - Exam Vital Signs Pulse Resp BP Pulse Ox 75 16 111/78 96 09/18/18 13:19 09/18/18 13:19 09/18/18 13:19 09/18/18 13:19 Results - Labs 09/24/18 05:35 09/24/18 05:35 Abnormal Lab Results - Last 24 Hours (Table) 09/23/18 09/23/18 09/24/18 Range/Units 16:54 23:45 05:35 RBC (4.30-5.90) m/uL Hgb (13.0-17.5) gm/dL Hct (39.0-53.0) % MCV (80.0-100.0) fL Plt Count (150-450) k/uL Potassium 3.4 L (3.5-5.1) mmol/L Chloride 110 H (98-107) mmol/L Creatinine 0.53 L (0.66-1.25) mg/dL Glucose 124 H (74-99) mg/dL POC Glucose (mg/dL) 145 H 136 H (75-99) mg/dL Calcium 7.6 L (8.4-10.2) mg/dL Phosphorus 1.7 L (2.5-4.5) mg/dL Magnesium 1.5 L (1.6-2.3) mg/dL 09/24/18 09/24/18 Range/Units 05:35 13:33 RBC 2.81 L (4.30-5.90) m/uL Hgb 9.4 L D (13.0-17.5) gm/dL Hct 28.5 L (39.0-53.0) % MCV 101.6 H (80.0-100.0) fL Plt Count 100 L (150-450) k/uL Potassium (3.5-5.1) mmol/L Chloride (98-107) mmol/L Creatinine (0.66-1.25) mg/dL Glucose (74-99) mg/dL POC Glucose (mg/dL) 140 H (75-99) mg/dL Calcium (8.4-10.2) mg/dL Phosphorus (2.5-4.5) mg/dL Magnesium (1.6-2.3) mg/dL Microbiology - Last 24 Hours (Table) 09/18/18 17:25 Blood Culture - Preliminary Blood No Growth after 120 hours Diabetes panel 09/24/18 Range/Units 05:35 Sodium 141 (137-145) mmol/L Potassium 3.4 L (3.5-5.1) mmol/L Chloride 110 H (98-107) mmol/L Carbon Dioxide 29 (22-30) mmol/L BUN 15 (9-20) mg/dL Creatinine 0.53 L (0.66-1.25) mg/dL Glucose 124 H (74-99) mg/dL Calcium 7.6 L (8.4-10.2) mg/dL Calcium panel 09/24/18 Range/Units 05:35 Calcium 7.6 L (8.4-10.2) mg/dL Phosphorus 1.7 L (2.5-4.5) mg/dL Pituitary panel 09/24/18 Range/Units 05:35 Sodium 141 (137-145) mmol/L Potassium 3.4 L (3.5-5.1) mmol/L Chloride 110 H (98-107) mmol/L Carbon Dioxide 29 (22-30) mmol/L BUN 15 (9-20) mg/dL Creatinine 0.53 L (0.66-1.25) mg/dL Glucose 124 H (74-99) mg/dL Calcium 7.6 L (8.4-10.2) mg/dL Adrenal panel 09/24/18 Range/Units 05:35 Sodium 141 (137-145) mmol/L Potassium 3.4 L (3.5-5.1) mmol/L Chloride 110 H (98-107) mmol/L Carbon Dioxide 29 (22-30) mmol/L BUN 15 (9-20) mg/dL Creatinine 0.53 L (0.66-1.25) mg/dL Glucose 124 H (74-99) mg/dL Calcium 7.6 L (8.4-10.2) mg/dL
[2018-09-24] MEDS ORDERED: MIDAZOLAM 1 MG/ML 5 ML VIAL IV STA (12:17)
[2018-09-24] MEDS ORDERED: MIDAZOLAM (PF) 2 MG/2 ML VIAL IV STA (12:22)
[2018-09-24] MEDS ORDERED: LORazepam 2 MG/ML INJ IV STA (12:33)
[2018-09-24 13:36] LABS: Glucose,Whole Blood 140 mg/dL (75-99)
[2018-09-24] MEDS ORDERED: LIDOCAINE 1% INJ 10MG/ML (20 ML MDV) ONE (14:34)
[2018-09-24] MEDS ORDERED: PROPOFOL 10 MG/ML 20 ML VIAL IV ONE (14:34)
--- NOTE | 2018-09-24 15:51 | P.PCN ---
Date of Procedure: 09/24/18 Procedure(s) Performed: Patient was sedated per anesthesia. The Olympus gastroscope was then utilized to try to intubate the esophagus in an effort to place a PEG tube. Despite numerous attempts over the last hour or so we were unable to intubate the esophagus. The bronchoscope was utilized, the standard laryngoscope was utilized, the fiberoptic laryngoscope was utilized, multiple body positions were attempted without the ability to identify the proximal esophageal orifice. No trauma to the oral pharyngeal region was encountered. The procedure was then aborted.
--- NOTE | 2018-09-24 15:56 | P.PN ---
Progress Note - Text Progress Note Date: 09/24/18 Patient's daughter one was notified as to the inability to place the PEG tube. We will sign out to the covering surgeon to consider repeat attempts at PEG tube placement, open gastrostomy tube, or radiographically placed gastrostomy tube.
--- NOTE | 2018-09-24 17:05 | P.PN ---
Subjective Progress Note Date: 09/24/18 On today's evaluation, I'm seeing this patient for a follow-up. He is a quadriplegic male patient 8 years of age who presented to the hospital because of increased shortness of breath, cough and and he was diagnosed having a pneumonia and urinary tract infection. He is in the intensive care unit. He manriquez s been infected in the past with gram-negative bacteria including an ESBL producing E. coli. His urine cultures positive for gram-negative bacillus. His sputum cultures also positive for gram-negative bacillus. Currently is on IV dependent. In terms of his breathing, the patient has no major respiratory distress at rest. He is using a high flow oxygen at an FiO2 of 70% with a flow rate of 50 and his pulse ox is around 96%. His chest x-ray shows limited bibasilar pulmonary infiltrates typical of an underlying pneumonia. He has quite pulmonary restriction and pulmonary insufficiency related to his quadriplegia. He is coughing mechanism is weak and poor. He is arousable. He is awake. He follows simple commands. He continues to be on DuoNeb nebulized treatments around the clock. He is on IV Merrem. He is also receiving IV Solu Medrol 40 mg every 8 hours. Clinically he is somnolent but is arousable. He is afebrile. No other significant events over the past 24 hours. On today's evaluation of 09/21/2018, the patient is doing worse compared to yesterday. The patient has patient is quadriplegic 82-year-old male patient who came into the hospital because of a bilateral pneumonia and recurrent urinary tract infection. For now the patient is an acute hypoxic respiratory failure. He is on high flow oxygen and the flow is at 15 L with an FiO2 of 70%, and the follow-up chest x-ray from today shows a new right upper lobe pneumonia in addition to a left basilar opacity and this is consistent with multifocal pneumonia. There is trace pleural effusion lung bases bilaterally. The patient is currently on IV Merrem. The sputum Gram stain and culture at shown E. coli. The patient has a very weak cough. He has a congested chest. Unable to bring up sputum and unable to perform adequate pulmonate toileting. The patient is on bronchodilators around the clock. The patient is also on IV Solu-Medrol. In terms of urine checked infection, the patient was found to have pseudomonas aeruginosa which is again sensitive to meropenem. The antibiotic coverage is adequate for now. I suggest stepping up the antibiotic treatment to cover vancomycin special with the worsening of the pulmonary infiltrates on today's chest x-ray. A superimposed staphylococcal pneumonia cannot be completely excluded despite the fact that the patient has been found to have E. coli in the sputum and antibiotic coverage has been adequate for now. Based on his decline in overall pulmonary status, I contacted the daughter and her nurse practitioner informed the daughter about the above-mentioned changes. There is concern that the patient may ultimately want to full-blown respiratory failure requiring intubation mechanical ventilation. The daughter wanted to proceed with any intervention needed to continue with his care including intubation mechanical ventilation if needed. For now, the patient is lethargic, slow in answering questions, extremely weak, has a very poor cough and mechanism as he is being treated for his underlying urine checked infection bilateral pneumonia. Also, a swallow evaluation was done and the patient did not pass and he is considered to be a high-risk for aspiration. For that reason, the patient is not also meeting his nutritional requirements. On today's evaluation of 09/22/2018, the patient is being seen in the follow-up. He is in acute hypoxic respiratory failure the patient developed bilateral pneumonia felt to be related to an aspiration. The patient also has an underlying UTI. The patient this morning was on much was a high flow oxygen at 45%. He is pulse oxing above 94%. Based on that I dropped the FiO2 down to 35% and currently his FiO2 is at 40% to maintain a saturation above 90%. The chest x-ray showed some limited improvement in the right upper lobe consolidation although there is still some bilateral lower lobe multifocal pneumonia. The patient remains on IV Merrem. Vancomycin was added. Sputum Gram stain and culture at shown E. coli earlier. He has a very weak cough. Fact he is not coughing at all. His mucous is dry. He is mainly muscle breathing. A Dobbhoff will be inserted as the patient has not been able to tolerate any diet as the patient failed a bedside swallow evaluation that was done by speech pathology. Meanwhile, he remains on Merrem regarding E. coli in the sputum and pseudomonas aeruginosa in the urine as the patient is suspected of underlying UTI. His CODE STATUS remains full. He is receiving IV fluids in the form of D5 0.9 at the rate of 100 mL an hour. The patient is producing adequate amount of urine output. No fever. No chills. No hemodynamic instability. He did have some limited hypothermic yesterday which subsequently improved. He is very sluggish. He is hardly responding to any verbal commands. She does wiggle his fingers upon commands. No cough and mechanism. On today's evaluation 09/23/2018, the patient is essentially the same without any major change in his condition over the past 24 hours. I will say probably is more lethargic and less responsive compared to yesterday. He remains nothing by mouth. Several attempts were done to inserted up of catheter which failed a Dobbhoff catheter was not being advanced into the esophagus and was being driven to the right mainstem bronchus. Based on this, no enteral feeding was initiated. I have put a consultation note for gastroenterology to insert a PEG tube as it is something that will be needed for enteral feeding and nutritional support. Meanwhile, the patient remains on high flow oxygen. The flow is at 4 L and the patient FiO2 at 50%. She is afebrile. He is hemodynamically stable. He is on broad-spectrum antibiotics and the patient is still on a combination of vancomycin and Merrem. Patient is resting comfortable. No signs of any respiratory distress. The chest x-ray from today showed persistent right upper lobe pulmonary infiltration and left lower lobe infiltration. The Dobbhoff was noted to be in the right mainstem bronchus and it was removed. Blood gases from today showed a pH of 7.49 with a pCO2 of 40 and pO2 of 61 and this was done of 50% FiO2. on today's evaluation of 09/24/2018, the patient was started in intensive care unit being treated for bilateral pneumonia and urine checked infection. He is awake and alert. However he is quite weak. His cough and mechanism is an extremely poor. Earlier this morning he was an FiO2 of 80%. I contacted the daughter. I thought is very appropriate to do a bronchoscopy on this patient to clear the patient's airway from rest or secretions and optimize her pulmonary status prior to the scheduled PEG tube insertion this afternoon. Based on this, the procedure was done and the ICU. I performed a procedure with a minimal amount of sedation with the patient was given only 1 mg of Ativan. During the bronchoscopy, the patient did very well however there was copious amount of thick purulent rest or secretions suctioned from the upper trachea and to lesser extent from the lower trachea and lower lobes bilaterally. A total of 20-25 mL of purulent dark brownish history material was aspirated. Following that the patient did well and the patient oxidation improved. He remained stable until his pulmonary status. The plan was this afternoon to proceed with PEG tube insertion. Nevertheless, this procedure was unsuccessful. Dr. Isai Alex tried several times to insert the scope into the esophagus or this was completely unsuccessful. Following that, under direct visualization and using regarding the scope initially and later on underwent kaleidoscope and underwent endoscopy visualization, we try to pass an NG tube and a Dobbhoff and yet again were completely unsuccessful. There was quite a bit of resistance getting this catheters and. As such, would unable to insert any form of feeding tube being 8 NG or Dobbhoff or PEG tube for the time being. I discussed this case with Dr. toledo. The we are planning to proceed with an open PEG tube insertion surgically within the next 24 hours. Note that during these procedures, the patient tolerated the procedures well. He remains on high flow oxygen at 90% FiO2. He remains hemodynamically stable. He remains on a combination of Merrem and vancomycin. Chest x-ray from today shows stable at the pulmonary infiltrates. He is on IV fluids and currently receiving D5 normal saline at the rate of 100 mL an hour. He is afebrile. He is producing adequate amount of urine output.on a separate note, the patient went into atrial fibrillation and r apid ventricular response overnight. He was started on Cardizem drip at 7.5 mg an hour. The Cardizem was being gradually weaned off. Ultimately the patient converted spontaneously to normal sinus rhythm and the Cardizem drip has been discontinued. Currently in sinus rhythm with occasional PVCs. Objective - Vital Signs Vital signs: Vital Signs Temp 96.7 F L 09/24/18 16:00 Pulse 59 L 09/24/18 16:10 Resp 13 09/24/18 16:00 BP 93/52 09/24/18 16:00 Pulse Ox 98 09/24/18 16:00 Intake & Output 09/23/18 09/24/18 09/24/18 18:59 06:59 18:59 Intake Total 7193.991 6480.000 2025 Output Total 2054 920 505 Balance -98.250 619.612 6492 Weight 70.7 kg 70.7 kg Intake: IV 1950 1400 1975 Dextrose 5%-0.9% NaCl 1, 1100 1300 900 000 ml @ 100 mls/hr IV . Q10H MERRY Rx#:[id number] Magnesium Sulfate-D5w Pmx 100 1 gm In Dextrose/Water 1 100ml.bag @ 100 mls/hr IVPB Q1H MERRY Rx#: [id number] Meropenem 1 gm In Sodium 100 100 200 Chloride 0.9% 100 ml @ 200 mls/hr IVPB Q8HR MERRY Rx#:[id number] Potassium Phosphate 10 200 mmol In Sodium Chloride 0 .9% 100 ml @ 50 mls/hr IV Q2H MERRY Rx#:[id number] Potassium Phosphate 10 750 mmol In Sodium Chloride 0 .9% 250 ml @ 125 mls/hr IV Q2H MERRY Rx#:[id number] Intake, IV Titration 6.750 80.000 51 Amount Diltiazem 125 mg In 6.750 80.000 51 Sodium Chloride 0.9% 100 ml @ 10 MG/HR 10 mls/hr IV .[id number] MERRY Rx#: [id number] Output: Urine 2055 920 505 Other: Voiding Method Indwelling Catheter Indwelling Catheter Indwelling Catheter - Exam Constitutional: The patient seems to be in mild degree of respiratory distress. He has a weak cough. He has having difficulties in controlling his respiratory secretions., the patient is wearing a high flow oxygen for now. He is not using his is and muscles of breathing for the time being. The patient is on high flow oxygen at FiO2 of 90%. Eyes: Anicteric sclerae, moist conjunctiva, no lid-lag, PERRLA ENMT: NC/AT,Oropharynx clear, no erythema or exudates. The patient has significant valgus and his oral mucosa. No thrush seen. Neck:Supple, FROM, no masses, or JVD, No carotid bruits; No thyromegaly Lungs: Inspiratory and expiratory rhonchi and coarse breath sounds, Normal respiratory effort, no accessory muscle use currently on AirVO2 50 L. The breath sounds are markedly diminished. Crackles are appreciated throughout the lung petersen specially in the lower lobes bilaterally. Scattered rhonchi heard throughout the lung petersen bilaterally. Cardiovascular: Heart regular in rate and rhythm, No murmurs, gallops, or rubs no peripheral edema Abdominal: Soft Nontender, nom distended, no guarding, no rebound or rigidity, Normoactive bowel sounds No hepatomegaly, No splenomegaly, No palpable mass No abdominal wall hernia noted Skin: Normal temperature, tone, texture, turgor, No induration No subcutaneous nodules, No rash, lesions, No ulcers Extremities:No digital cyanosis No clubbing, Pedal pulses intact and symmetric al Radial pulses intact and symmetrical Normal gait and station, No calf tenderness Neuro: Quadriplegic, with flexion contractures and atrophy of lower extremities, the patient still not as conversive or functional , yet he is arousable and is occasionally following simple commands. He does have some motor functions and his left upper extremity and was told and he was able to feed himself. Cu rrently is nothing by mouth. The patient's overall neurologic functions have remained stable and unchanged compared to yesterday. - Labs CBC & Chem 7: 09/24/18 05:35 09/24/18 05:35 Labs: Abnormal Lab Results - Last 24 Hours (Table) 09/23/18 09/23/18 09/24/18 Range/Units 16:54 23:45 05:35 RBC (4.30-5.90) m/uL Hgb (13.0-17.5) gm/dL Hct (39.0-53.0) % MCV (80.0-100.0) fL Plt Count (150-450) k/uL Potassium 3.4 L (3.5-5.1) mmol/L Chloride 110 H (98-107) mmol/L Creatinine 0.53 L (0.66-1.25) mg/dL Glucose 124 H (74-99) mg/dL POC Glucose (mg/dL) 145 H 136 H (75-99) mg/dL Calcium 7.6 L (8.4-10.2) mg/dL Phosphorus 1.7 L (2.5-4.5) mg/dL Magnesium 1.5 L (1.6-2.3) mg/dL 09/24/18 09/24/18 Range/Units 05:35 13:33 RBC 2.81 L (4.30-5.90) m/uL Hgb 9.4 L D (13.0-17.5) gm/dL Hct 28.5 L (39.0-53.0) % MCV 101.6 H (80.0-100.0) fL Plt Count 100 L (150-450) k/uL Potassium (3.5-5.1) mmol/L Chloride (98-107) mmol/L Creatinine (0.66-1.25) mg/dL Glucose (74-99) mg/dL POC Glucose (mg/dL) 140 H (75-99) mg/dL Calcium (8.4-10.2) mg/dL Phosphorus (2.5-4.5) mg/dL Magnesium (1.6-2.3) mg/dL Microbiology - Last 24 Hours (Table) 09/18/18 17:25 Blood Culture - Preliminary Blood No Growth after 120 hours Assessment and Plan Plan: Assessment 1 pseudomonas aeruginosa urinary tract infection currently on IV meropenem. 2 multilobar pneumonia with worsening in pulmonary infiltrates and persistent bilateral pulmonary infiltrates in the right upper lobe and the left lower lobe.the patient is post bronchoscopy in August care was suctioning. Copious amount of secretions was removed from the patient's airways without any major difficulties. The rest or secretions will be sent for Gram stain and culture. Oxidation improved following the bronchoscopy. Currently the patient on high flow oxygen and FiO2 is down to 50%. 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 coli, current E. coli in the sputum has sensitive to Merrem. Most recent urinary cultures showing pseudomonas aeruginosa. 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 Currently the patient is off anticoagulation. The patient was receiving Coumadin and Coumadin is currently on hold. We'll provide the patient Lovenox for his previous history of DVT at a dose of 1.5 mg every 24 hours. 14 failed swallow evaluation patient is currently nothing by mouth.furthermore, the patient a failed attempts for PEG tube insertion . The first procedure failed as the surgeon was unable to identify the esophagus probably related to strictures or atresia. As such, the patient remains nothing by mouth. 15 paroxysmal atrial fibrillation current rhythm is back to sinus and the patient is currently off the Cardizem drip Plan we are unable to insert a Dobbhoff for an NG tube. We are unable to insert endoscopic active in this patient. I discussed this case at length with the surgeons. The plan is to proceed with a open active insertion on Thursday by Dr. Gautam. The patient meanwhile will be started on TPN for nutritional support. Adequate pulmonary toileting will be done. Bronchoscopy was done. Awaiting the repeat sputum analysis from the bronchoscopy for Gram stain and culture. Continue same antibiotic coverage including a combination of Merrem and vancomycin. Hemodynamically stable. Continue IV fluids. Continue rest of the supportive care. Tentative plan is for bacterial by Thursday. Meanwhile TPN will be initiated.
[2018-09-24 17:31] LABS: Glucose,Whole Blood 255 mg/dL (75-99)
[2018-09-24 17:44] LABS: Glucose,Whole Blood 129 mg/dL (75-99)
[2018-09-24 17:52] LABS: Potassium 3.5 mmol/L (3.5-5.1)
[2018-09-24] MEDS ORDERED: Potassium Replacement Protocol 1 EACH MISC MISCELLANE PRN (18:11)
[2018-09-24] MEDS: POTASSIUM CHLORIDE 20 MEQ in WATER FOR INJECTION 1 100ML.BAG IVPB SCH ×2 (18:33→20:37)
--- NOTE | 2018-09-24 18:35 | ECHOF ---
Referral Reason:assess LV function MEASUREMENTS -------- HEIGHT: 170.2 cm WEIGHT: 70.3 kg BP: 161/87 RVIDd: 2.9 cm (< 3.3) IVSd: 0.7 cm (0.6 - 1.1) LVIDd: 3.1 cm (3.9 - 5.3) LVPWd: 0.8 cm (0.6 - 1.1) IVSs: 1.5 cm LVIDs: 1.7 cm LVPWs: 1.3 cm Ao Diam: 3.0 cm (2.0 - 3.7) AV Cusp: 2.0 cm (1.5 - 2.6) LA Diam: 3.2 cm (2.7 - 3.8) MV EXCURSION: 11.453 mm (> 18.000) MV EF SLOPE: 89 mm/s (70 - 150) EPSS: 0.5 cm MV E Mikhail: 0.69 m/s MV DecT: 202 ms MV A Mikhail: 0.83 m/s MV E/A Ratio: 0.83 AR PHT: 225 ms RAP: 5.00 mmHg RVSP: 50.98 mmHg FINDINGS -------- Sinus rhythm with extra systolic beats. Pt. not compliant. Poor apicals. Study taken from subcoastals. The left ventricular size is normal. There is mild concentric left ventricular hypertrophy. Overa ll left ventricular systolic function is normal with, an EF between 55 - 60 %. The right ventricle is normal in size. The left atrial size is normal. The right atrium is normal in size. Trace amount of aortic regurgitation. The mitral valve leaflets are mildly thickened. Mild mitral regurgitation is present. Evam-me-ruipiifx tricuspid regurgitation present. There is moderate pulmonary hypertension. The r ight ventricular systolic pressure, as measured by Doppler, is 50.98mmHg. Pulmonic valve appears structurally normal. The aortic root size is normal. Normal inferior vena cava with normal inspiratory collapse consistent with estimated right atrial pre ssure of 5 mmHg. There is no pericardial effusion. CONCLUSIONS -------- 1. Sinus rhythm with extra systolic beats. 2. Pt. not compliant. 3. Poor apicals. Study taken from subcoastals. 4. The left ventricular size is normal. 5. There is mild concentric left ventricular hypertrophy. 6. Overall left ventricular systolic function is normal with, an EF between 55 - 60 %. 7. The right ventricle is normal in size. 8. The left atrial size is normal. 9. The right atrium is normal in size. 10. Trace amount of aortic regurgitation. 11. The mitral valve leaflets are mildly thickened. 12. Mild mitral regurgitation is present. 13. [id number]-[id number] tricuspid regurgitation present. 14. There is moderate pulmonary hypertension. 15. The right ventricular systolic pressure, as measured by Doppler, is 50.98mmHg. 16. Pulmonic valve appears structurally normal. 17. The aortic root size is normal. 18. Normal inferior vena cava with normal inspiratory collapse consistent with estimated right atrial pressure of 5 mmHg. 19. There is no pericardial effusion. MECHANICAL INTERN: Isabelle Arboleda RDCS
--- NOTE | 2018-09-24 19:05 | OP ---
OPERATIVE REPORT PROCEDURE: Bronchoscopy. PREOPERATIVE DIAGNOSIS: Multifocal pneumonia, weak cough, mucus plugging. POSTOPERATIVE DIAGNOSIS: Multifocal pneumonia, weak cough, mucus plugging. This is an 82-year-old male patient with quadriplegia who is currently being treated for a gram-negative E coli pneumonia. The patient has a weak cough. The patient had significant mucus plugging and respiratory distress and hypoxemia, and for that reason a bedside bronchoscopy was done in the intensive care unit. This procedure was done while the patient was on 90% FiO2 through a high-flow nasal cannula. The patient was given a total of 1 mg of Ativan. The bronchoscope was inserted through the right nostril. It was advanced into the posterior oropharynx and then larynx. Epiglottis was identified. Vocal cords were in the midline and they were functional. No vocal cord paralysis was identified. There was some thickening of the cords bilaterally with some irregularities along the surface, yet there were no nodules or lesions or malignancy identified. A total of 2 mL of 1% lidocaine was applied to the vocal cords. Following that, the bronchoscope was advanced into the upper trachea. Copious amounts of respiratory secretions were identified within the trachea and therapeutic airway suctioning was done. Overall, there was a total of 20 to 25 mL of purulent respiratory secretions suctioned during the endoscopy. Therapeutic airway suctioning was done. The visualized airways included the trachea, bilateral mainstem bronchi, right upper lobe bronchus, bronchus intermedius, right middle and right lower lobe bronchus, left upper and left lower bronchus, along with various segments and subsegments. At the end of the procedure the airways were clear of any respiratory secretions. I moved the bronchoscope back to the trachea. I was able to identify anteriorly the insertion site of the previous tracheostomy over the anterior tracheal wall. The area was well healed. There was no evidence any tracheal strictures or stenosis. There were diffuse mucosal inflammatory changes throughout the airways, mainly in the upper tracheal area. Bronchoscope was removed and the sample was sent for Gram stain and culture. No oxygen desaturation was encountered. The patient remained hemodynamically stable throughout the procedure. MMODL / IJN: [id number] /
[2018-09-24] MEDS ORDERED: APIXABAN 2.5 MG TABLET PO SCH (21:00)
--- NOTE | 2018-09-24 22:41 | PN ---
PROGRESS NOTE DATE OF SERVICE: 09/24/2018 PRESENTING COMPLAINT: Tired. INTERVAL HISTORY: The patient remains in the ICU. He has chronic quadriplegia and is bed-bound. He has a chronic suprapubic catheter. He has some function of the right hand at baseline and is doubly incontinent. Admitted with sepsis, pneumonia, UTI, Coumadin toxicity. Earlier today, the patient desaturated and Dr. Rivas did a bronchoscopy. Large mucus plugs were removed. AIRVO was used. FiO2 was brought down to 50% from 90%. Dr. Alex did try a Dobbhoff tube again, successfully. Plan is now to do a PEG tube placement on Thursday. The plan is to start the patient on TPN and lipids. Patient does open his eyes a bit more. Patient's daughter is present at the bedside. REVIEW OF SYSTEMS: Cannot be done, as patient is not communicative. CURRENT MEDICATIONS: Reviewed. They include DuoNeb, IV Cardizem, IV meropenem. PHYSICAL EXAMINATION: Temperature 98.2, pulse 86, respiration 20, blood pressure 152/69, pulse ox 97% on high- flow oxygen. GENERAL APPEARANCE: Lying in bed, tired, lethargic. Does open eyes. EYES: Pupils equal. Conjunctivae pale. HEENT: External appearance of nose and ears normal. Oral cavity dry. Nasal cannula in place. NECK: JVD unable to assess. Mass not palpable. RESPIRATORY: Effort increased. LUNGS: Diminished breath sounds. Prolonged expiration. CARDIOVASCULAR: First and second sounds normal. No edema. ABDOMEN: Soft, nontender. Liver and spleen not palpable. Suprapubic catheter in place. NEUROLOGICAL: Some movement in the right upper extremity. INVESTIGATIONS: White count 5.7, hemoglobin 9.4, potassium 3.4, BUN 15, creatinine 0.53, magnesium 1.5. ASSESSMENT: 1. Aspiration pneumonia, bilateral, multilobar. Status post bronchoscopy with large amount of mucus plugs removed. 2. Acute hypoxic respiratory failure requiring high-flow oxygen, currently around 51% with AIRVO. 3. Essential hypertension. 4. Chronic quadriplegia with residual function of the right upper extremity at baseline. 5. Neurogenic bladder with chronic suprapubic catheter. 6. Acute Coumadin toxicity, reversed with vitamin K. 7. Acute urinary tract infection from suprapubic catheter with cystitis with cultures positive for pseudomonas, Enterococcus faecalis. 8. Acute metabolic encephalopathy from above. 9. Peripheral neuropathy. 10.CODE STATUS: FULL CODE. 11.Persistent atrial fibrillation. PLAN: Continue current medication and treatment plan, antibiotics. Did speak to the daughter at the bedside. PEG tube on Thursday. Supportive care. Prognosis remains guarded. MMODL / IJN: [id number] /
[2018-09-24 23:58] LABS: Glucose,Whole Blood 117 mg/dL (75-99)
[2018-09-25] MEDS: MEROPENEM 1 GM in SODIUM CHLORIDE 0.9% 100 ML IVPB SCH ×3 (00:49→15:40)
--- NOTE | 2018-09-25 04:31 | PN ---
PROGRESS NOTE DATE OF SERVICE: 09/24/2018. REASON FOR FOLLOWUP: 1. Pseudomonas UTI. 2. Recurrent aspiration pneumonia. INTERVAL HISTORY: The patient is currently afebrile, has been breathing comfortably. The patient RN did mention the patient has been up and about and responding appropriately. No nausea, vomiting has been noticed or diarrhea. Oral intake remains to be poor for which the PEG tube has been placed. PHYSICAL EXAMINATION: Blood pressure is 149/75 with a pulse of 96, temperature 98. He is 93% on high- flow oxygen. General description is an elderly male lying in bed in no distress. Respiratory system: Unlabored breathing. Decreased breath sounds in the bases. No wheeze. Heart S1, S2. Regular rate and rhythm. Abdomen soft, no tenderness. LABS: Hemoglobin 9.1, white count 5.7, BUN of 15, creatinine 0.53. The patient Bronchial cultures currently pending. DIAGNOSTIC IMPRESSION AND PLAN: Patient with Pseudomonas aeruginosa urinary tract infection with recurrent aspiration pneumonia. The patient is currently covered with meropenem to continue for now as well as adjusting antibiotic further on the basis of the bronch cultures. Continue supportive care. MMODL / IJN: [id number] / MTDD
[2018-09-25 05:36] LABS: HCT 26.2 % (39.0-53.0); HGB 8.3 gm/dL (13.0-17.5); Hypochromasia Marked; MCH 33.4 pg (25.0-35.0); MCHC 31.7 g/dL (31.0-37.0); MCV 105.5 fL (80.0-100.0); Macrocytosis Moderate; Mean Platelet Volume 7.7; Platelet Count 107 k/uL (150-450); RBC 2.48 m/uL (4.30-5.90); RDW 15.1 % (11.5-15.5); WBC 3.3 k/uL (3.8-10.6)
[2018-09-25 05:59] LABS: Glucose,Whole Blood 99 mg/dL (75-99)
[2018-09-25 06:07] LABS: Anion Gap 3 mmol/L; Blood Urea Nitrogen 13 mg/dL (9-20); Calcium 7.7 mg/dL (8.4-10.2); Carbon Dioxide 26 mmol/L (22-30); Chloride 115 mmol/L (98-107); Glucose 94 mg/dL (74-99); Magnesium 1.9 mg/dL (1.6-2.3); Phosphorus 1.8 mg/dL (2.5-4.5); Potassium 4.2 mmol/L (3.5-5.1); Sodium 144 mmol/L (137-145)
[2018-09-25] MEDS ORDERED: Phosphorus Replacement Protoco 1 EACH MISC MISCELLANE PRN (06:44)
[2018-09-25] MEDS ORDERED: Magnesium Replacement Protocol 1 EACH MISC MISCELLANE PRN (06:44)
--- NOTE | 2018-09-25 07:03 | XR ---
EXAMINATION TYPE: XR chest 1V DATE OF EXAM: 09/25/2018 HISTORY: pneumonia. REFERENCE: Previous study dated 09/24/2018. FINDINGS: There continues be left basilar consolidation. The right upper lobe airspace disease. The h eart is mildly enlarged. There are small, bilateral effusions. IMPRESSION: 1. CARDIOMEGALY. 2. BILATERAL AIRSPACE DISEASE. 3. SMALL, BILATERAL EFFUSIONS.
[2018-09-25] MEDS: IPRATROPIUM-ALBUTEROL 3 ML NEB INHALATION SCH ×4 (08:14→20:03)
[2018-09-25] MEDS: PANTOPRAZOLE 40 MG/10 ML VIAL IVP SCH (08:31)
[2018-09-25] MEDS: LEVOTHYROXINE IVP 100 MCG/5 ML VIAL IV SCH (08:31)
[2018-09-25] MEDS: MAGNESIUM SULFATE-D5W PMX 1 GM in DEXTROSE/WATER 1 100ML.BAG IVPB SCH ×2 (08:38→09:48)
[2018-09-25] MEDS: DEXTROSE 5%-0.9% NACL 1,000 ML IV SCH ×2 (08:42→22:11)
[2018-09-25] MEDS: SODIUM PHOSPHATE 10 MMOL in SODIUM CHLORIDE 0.9% 250 ML IVPB SCH ×2 (09:48→11:50)
[2018-09-25] MEDS ORDERED: [UNRECOGNIZED DRUG - REMARK] IV SCH ×7 (11:30)
[2018-09-25 11:59] LABS: Glucose,Whole Blood 124 mg/dL (75-99)
--- NOTE | 2018-09-25 12:54 | P.PN ---
Subjective Progress Note Date: 09/25/18 CHIEF COMPLAINT: Protein malnutrition HISTORY OF PRESENT ILLNESS: The patient is a 82-year-old gentleman with attempted upper endoscopy for PEG tube placement however unsuccessful due to unable to intubate esophagus. Patient had recent bronchoscopy yesterday as well. Otherwise, no fevers or chills. PHYSICAL EXAM: VITAL SIGNS: Reviewed CONSTITUTIONAL: Well developed and in no acute distress. EYES: Conjuctivae without sclera icterus. Extraocular movements grossly intact. HEAD, EARS, NOSE, THROAT: Moist buccal mucosa. Head is atraumatic, normocephalic. No nasal drainage. NECK: No thyroidomegaly. RESPIRATORY: Non-labored respirations and equal bilateral excursions. CARDIOVASCULAR: Palpable 2+ radial pulses. Regular rate. ABDOMEN: Soft. Non-tender. MUSCULOSKELETAL: Quadriplegia. No clubbing cyanosis SKIN: Well perfused. Good skin turgor. NEUROLOGIC: Cranial nerves I through XII grossly intact. No focal or lateralizing signs. PSYCH: Appropriate affect. Alert and oriented to person, place and time. CLINCAL LABS: Reviewed MEDICAL RESULTS: Upper endoscopy findings reviewed ASSESSMENT: 1. Inadequate protein intake with malnutrition 2. Aborted upper endoscopy for PEG tube placement 3. Pneumonia 4. Leukopenia, new 5. Pancytopenia PLAN: 1. Patient to undergo surgical gastrostomy tube placement for Thursday as he is a high surgical risk 2. Continue with TPN Critical care time 19 minutes Objective - Vital Signs Vital signs: Vital Signs Temp 98.5 F 09/25/18 12:00 Pulse 84 09/25/18 12:05 Resp 19 09/25/18 12:00 BP 149/77 09/25/18 12:00 Pulse Ox 100 09/25/18 12:00 Intake & Output 09/24/18 09/25/18 09/25/18 18:59 06:59 18:59 Intake Total 2226 1470.958 950 Output Total 570 1265 400 Balance 1656 205.958 550 Weight 70.7 kg 73.1 kg 73.1 kg Intake: IV 2175 1450 950 Dextrose 5%-0.9% NaCl 1, 1100 1200 400 000 ml @ 100 mls/hr IV . Q10H [facility] Rx#:[id number] Magnesium Sulfate-D5w Pmx 100 100 1 gm In Dextrose/Water 1 100ml.bag @ 100 mls/hr IVPB Q1H [facility] Rx#: [id number] Magnesium Sulfate-D5w Pmx 100 1 gm In Dextrose/Water 1 100ml.bag @ 100 mls/hr IVPB Q1H [facility] Rx#: [id number] Meropenem 1 gm In Sodium 200 100 Chloride 0.9% 100 ml @ 200 mls/hr IVPB Q8HR [facility] Rx#:[id number] Potassium Chloride 20 meq 250 In Water For Injection 1 100ml.bag @ 50 mls/hr IVPB Q2H [facility] Rx#: [id number] Potassium Phosphate 10 200 mmol In Sodium Chloride 0 .9% 100 ml @ 50 mls/hr IV Q2H [facility] Rx#:[id number] Sodium Phosphate 10 mmol 250 In Sodium Chloride 0.9% 250 ml @ 125 mls/hr IVPB Q2H [facility] Rx#:[id number] Intake, IV Titration 51 6.958 Amount Diltiazem 125 mg In 51 6.958 Sodium Chloride 0.9% 100 ml @ 10 MG/HR 10 mls/hr IV .[id number] [facility] Rx#: [id number] Tube Feeding 14 Output: Urine 570 1265 400 Other: Voiding Method Indwelling Catheter Indwelling Catheter Indwelling Catheter - Labs CBC & Chem 7: 09/25/18 05:05 09/25/18 05:05 Labs: Abnormal Lab Results - Last 24 Hours (Table) 09/24/18 09/24/18 09/24/18 Range/Units 13:33 17:29 17:33 WBC (3.8-10.6) k/uL RBC (4.30-5.90) m/uL Hgb (13.0-17.5) gm/dL Hct (39.0-53.0) % MCV (80.0-100.0) fL Plt Count (150-450) k/uL Chloride (98-107) mmol/L Creatinine (0.66-1.25) mg/dL POC Glucose (mg/dL) 140 H 255 H 129 H (75-99) mg/dL Calcium (8.4-10.2) mg/dL Phosphorus (2.5-4.5) mg/dL 09/24/18 09/25/18 09/25/18 Range/Units 23:56 05:05 05:05 WBC 3.3 L (3.8-10.6) k/uL RBC 2.48 L (4.30-5.90) m/uL Hgb 8.3 L (13.0-17.5) gm/dL Hct 26.2 L (39.0-53.0) % MCV 105.5 H (80.0-100.0) fL Plt Count 107 L (150-450) k/uL Chloride 115 H (98-107) mmol/L Creatinine 0.51 L (0.66-1.25) mg/dL POC Glucose (mg/dL) 117 H (75-99) mg/dL Calcium 7.7 L (8.4-10.2) mg/dL Phosphorus 1.8 L (2.5-4.5) mg/dL 09/25/18 Range/Units 11:57 WBC (3.8-10.6) k/uL RBC (4.30-5.90) m/uL Hgb (13.0-17.5) gm/dL Hct (39.0-53.0) % MCV (80.0-100.0) fL Plt Count (150-450) k/uL Chloride (98-107) mmol/L Creatinine (0.66-1.25) mg/dL POC Glucose (mg/dL) 124 H (75-99) mg/dL Calcium (8.4-10.2) mg/dL Phosphorus (2.5-4.5) mg/dL Microbiology - Last 24 Hours (Table) 09/24/18 12:30 Gram Stain - Preliminary Bronchial Washings - Random Bronchial Washings Culture - Preliminary 09/18/18 17:25 Blood Culture - Final Blood No Growth after 144 hours Assessment and Plan (1) Inadequate dietary intake of protein Current Visit: Yes Status: Acute Code(s): R63.8 - OTHER SYMPTOMS AND SIGNS CONCERNING FOOD AND FLUID INTAKE SNOMED Code(s): 782832009 (2) Pneumonia Current Visit: Yes Status: Acute Code(s): J18.9 - PNEUMONIA, UNSPECIFIED ORGANISM SNOMED Code(s): 091170999 (3) Thrombocytopenia Current Visit: Yes Status: Acute Code(s): D69.6 - THROMBOCYTOPENIA, UNSPECIFIED SNOMED Code(s): 374392443 (4) Urinary tract infection Current Visit: Yes Status: Acute Code(s): N39.0 - URINARY TRACT INFECTION, SITE NOT SPECIFIED SNOMED Code(s): 66218117
[2018-09-25] MEDS: guaiFENesin 600 MG TABLET.ER PO SCH ×2 (13:01→21:48)
[2018-09-25] MEDS: CHOLECALCIFEROL 400 UNIT TAB PO SCH (13:01)
[2018-09-25] MEDS: MULTIVITAMINS, THERA 1 EACH TAB PO SCH (13:01)
--- NOTE | 2018-09-25 15:47 | P.PN ---
Subjective Progress Note Date: 09/25/18 On today's evaluation, I'm seeing this patient for a follow-up. He is a quadriplegic male patient 8 years of age who presented to the hospital because of increased shortness of breath, cough and and he was diagnosed having a pneumonia and urinary tract infection. He is in the intensive care unit. He manriquez s been infected in the past with gram-negative bacteria including an ESBL producing E. coli. His urine cultures positive for gram-negative bacillus. His sputum cultures also positive for gram-negative bacillus. Currently is on IV dependent. In terms of his breathing, the patient has no major respiratory distress at rest. He is using a high flow oxygen at an FiO2 of 70% with a flow rate of 50 and his pulse ox is around 96%. His chest x-ray shows limited bibasilar pulmonary infiltrates typical of an underlying pneumonia. He has quite pulmonary restriction and pulmonary insufficiency related to his quadriplegia. He is coughing mechanism is weak and poor. He is arousable. He is awake. He follows simple commands. He continues to be on DuoNeb nebulized treatments around the clock. He is on IV Merrem. He is also receiving IV Solu Medrol 40 mg every 8 hours. Clinically he is somnolent but is arousable. He is afebrile. No other significant events over the past 24 hours. On today's evaluation of 09/21/2018, the patient is doing worse compared to yesterday. The patient has patient is quadriplegic 82-year-old male patient who came into the hospital because of a bilateral pneumonia and recurrent urinary tract infection. For now the patient is an acute hypoxic respiratory failure. He is on high flow oxygen and the flow is at 15 L with an FiO2 of 70%, and the follow-up chest x-ray from today shows a new right upper lobe pneumonia in addition to a left basilar opacity and this is consistent with multifocal pneumonia. There is trace pleural effusion lung bases bilaterally. The patient is currently on IV Merrem. The sputum Gram stain and culture at shown E. coli. The patient has a very weak cough. He has a congested chest. Unable to bring up sputum and unable to perform adequate pulmonate toileting. The patient is on bronchodilators around the clock. The patient is also on IV Solu-Medrol. In terms of urine checked infection, the patient was found to have pseudomonas aeruginosa which is again sensitive to meropenem. The antibiotic coverage is adequate for now. I suggest stepping up the antibiotic treatment to cover vancomycin special with the worsening of the pulmonary infiltrates on today's chest x-ray. A superimposed staphylococcal pneumonia cannot be completely excluded despite the fact that the patient has been found to have E. coli in the sputum and antibiotic coverage has been adequate for now. Based on his decline in overall pulmonary status, I contacted the daughter and her nurse practitioner informed the daughter about the above-mentioned changes. There is concern that the patient may ultimately want to full-blown respiratory failure requiring intubation mechanical ventilation. The daughter wanted to proceed with any intervention needed to continue with his care including intubation mechanical ventilation if needed. For now, the patient is lethargic, slow in answering questions, extremely weak, has a very poor cough and mechanism as he is being treated for his underlying urine checked infection bilateral pneumonia. Also, a swallow evaluation was done and the patient did not pass and he is considered to be a high-risk for aspiration. For that reason, the patient is not also meeting his nutritional requirements. On today's evaluation of 09/22/2018, the patient is being seen in the follow-up. He is in acute hypoxic respiratory failure the patient developed bilateral pneumonia felt to be related to an aspiration. The patient also has an underlying UTI. The patient this morning was on much was a high flow oxygen at 45%. He is pulse oxing above 94%. Based on that I dropped the FiO2 down to 35% and currently his FiO2 is at 40% to maintain a saturation above 90%. The chest x-ray showed some limited improvement in the right upper lobe consolidation although there is still some bilateral lower lobe multifocal pneumonia. The patient remains on IV Merrem. Vancomycin was added. Sputum Gram stain and culture at shown E. coli earlier. He has a very weak cough. Fact he is not coughing at all. His mucous is dry. He is mainly muscle breathing. A Dobbhoff will be inserted as the patient has not been able to tolerate any diet as the patient failed a bedside swallow evaluation that was done by speech pathology. Meanwhile, he remains on Merrem regarding E. coli in the sputum and pseudomonas aeruginosa in the urine as the patient is suspected of underlying UTI. His CODE STATUS remains full. He is receiving IV fluids in the form of D5 0.9 at the rate of 100 mL an hour. The patient is producing adequate amount of urine output. No fever. No chills. No hemodynamic instability. He did have some limited hypothermic yesterday which subsequently improved. He is very sluggish. He is hardly responding to any verbal commands. She does wiggle his fingers upon commands. No cough and mechanism. On today's evaluation 09/23/2018, the patient is essentially the same without any major change in his condition over the past 24 hours. I will say probably is more lethargic and less responsive compared to yesterday. He remains nothing by mouth. Several attempts were done to inserted up of catheter which failed a Dobbhoff catheter was not being advanced into the esophagus and was being driven to the right mainstem bronchus. Based on this, no enteral feeding was initiated. I have put a consultation note for gastroenterology to insert a PEG tube as it is something that will be needed for enteral feeding and nutritional support. Meanwhile, the patient remains on high flow oxygen. The flow is at 4 L and the patient FiO2 at 50%. She is afebrile. He is hemodynamically stable. He is on broad-spectrum antibiotics and the patient is still on a combination of vancomycin and Merrem. Patient is resting comfortable. No signs of any respiratory distress. The chest x-ray from today showed persistent right upper lobe pulmonary infiltration and left lower lobe infiltration. The Dobbhoff was noted to be in the right mainstem bronchus and it was removed. Blood gases from today showed a pH of 7.49 with a pCO2 of 40 and pO2 of 61 and this was done of 50% FiO2. on today's evaluation of 09/24/2018, the patient was started in intensive care unit being treated for bilateral pneumonia and urine checked infection. He is awake and alert. However he is quite weak. His cough and mechanism is an extremely poor. Earlier this morning he was an FiO2 of 80%. I contacted the daughter. I thought is very appropriate to do a bronchoscopy on this patient to clear the patient's airway from rest or secretions and optimize her pulmonary status prior to the scheduled PEG tube insertion this afternoon. Based on this, the procedure was done and the ICU. I performed a procedure with a minimal amount of sedation with the patient was given only 1 mg of Ativan. During the bronchoscopy, the patient did very well however there was copious amount of thick purulent rest or secretions suctioned from the upper trachea and to lesser extent from the lower trachea and lower lobes bilaterally. A total of 20-25 mL of purulent dark brownish history material was aspirated. Following that the patient did well and the patient oxidation improved. He remained stable until his pulmonary status. The plan was this afternoon to proceed with PEG tube insertion. Nevertheless, this procedure was unsuccessful. Dr. Isai Alex tried several times to insert the scope into the esophagus or this was completely unsuccessful. Following that, under direct visualization and using regarding the scope initially and later on underwent kaleidoscope and underwent endoscopy visualization, we try to pass an NG tube and a Dobbhoff and yet again were completely unsuccessful. There was quite a bit of resistance getting this catheters and. As such, would unable to insert any form of feeding tube being 8 NG or Dobbhoff or PEG tube for the time being. I discussed this case with Dr. toledo. The we are planning to proceed with an open PEG tube insertion surgically within the next 24 hours. Note that during these procedures, the patient tolerated the procedures well. He remains on high flow oxygen at 90% FiO2. He remains hemodynamically stable. He remains on a combination of Merrem and vancomycin. Chest x-ray from today shows stable at the pulmonary infiltrates. He is on IV fluids and currently receiving D5 normal saline at the rate of 100 mL an hour. He is afebrile. He is producing adequate amount of urine output.on a separate note, the patient went into atrial fibrillation and r apid ventricular response overnight. He was started on Cardizem drip at 7.5 mg an hour. The Cardizem was being gradually weaned off. Ultimately the patient converted spontaneously to normal sinus rhythm and the Cardizem drip has been discontinued. Currently in sinus rhythm with occasional PVCs. On 09/25/2018, seeing this patient for a follow-up. The patient is doing well. He is essentially the same as yesterday. The patient on a 50% high flow oxygen. Resting comfortably in bed. Interactive. No signs of any respiratory distress to chest x-ray findings are stable. He will be started on TPN today via PICC line in his left upper extremity. The plan is to proceed with a packed insert ion on Thursday and this will be a surgical PEG tube insertion knowing that previous attempts to insert a PEG tube endoscopically failed in this patient. Hemodynamically stable. He is afebrile. His cardiac rhythm is sinus. He is off the Cardizem drip. He is having occasional PACs and PVCs. He remains on Merrem. He is also on vancomycin. The renal function is stable. Electrolytes all within normal limits. No other significant events overnight. The daughter is aware of the above-mentioned events and she is agreeable for a surgical packed insertion on Thursday. Objective - Vital Signs Vital signs: Vital Signs Temp 98.5 F 09/25/18 12:00 Pulse 90 09/25/18 15:00 Resp 21 09/25/18 15:00 BP 135/92 09/25/18 15:00 Pulse Ox 100 09/25/18 15:00 Intake & Output 09/24/18 09/25/18 09/25/18 18:59 06:59 18:59 Intake Total 2226 3130.593 4823 Output Total 570 1265 925 Balance 1656 205.958 625 Weight 70.7 kg 73.1 kg 73.1 kg Intake: IV 2175 1450 1550 Dextrose 5%-0.9% NaCl 1, 1100 1200 600 000 ml @ 50 mls/hr IV . Q20H [facility] Rx#:[id number] Magnesium Sulfate-D5w Pmx 100 100 1 gm In Dextrose/Water 1 100ml.bag @ 100 mls/hr IVPB Q1H [facility] Rx#: [id number] Magnesium Sulfate-D5w Pmx 100 1 gm In Dextrose/Water 1 100ml.bag @ 100 mls/hr IVPB Q1H [facility] Rx#: [id number] Meropenem 1 gm In Sodium 200 100 Chloride 0.9% 100 ml @ 200 mls/hr IVPB Q8HR [facility] Rx#:[id number] Potassium Chloride 20 meq 250 In Water For Injection 1 100ml.bag @ 50 mls/hr IVPB Q2H [facility] Rx#: [id number] Potassium Phosphate 10 200 mmol In Sodium Chloride 0 .9% 100 ml @ 50 mls/hr IV Q2H [facility] Rx#:[id number] Potassium Phosphate 15 150 mmol Sodium Acetate 30 meq Magnesium Sulfate gm 1 gm Calcium Gluconate 1 gm In Amino Acid 5%-D15w 1,000 ml @ 65 mls/hr IV . BY DURATION [facility] Rx#: [id number] Sodium Phosphate 10 mmol 500 In Sodium Chloride 0.9% 250 ml @ 125 mls/hr IVPB Q2H [facility] Rx#:[id number] Intake, IV Titration 51 6.958 Amount Diltiazem 125 mg In 51 6.958 Sodium Chloride 0.9% 100 ml @ 10 MG/HR 10 mls/hr IV .[id number] [facility] Rx#: [id number] Tube Feeding 14 Output: Urine 570 1265 925 Other: Voiding Method Indwelling Catheter Indwelling Catheter Indwelling Catheter - Exam Constitutional: The patient seems to be in mild degree of respiratory distress. He has a weak cough. He has having difficulties in controlling his respiratory secretions., the patient is wearing a high flow oxygen for now. He is not using his is and muscles of breathing for the time being. The patient is on high flow oxygen at FiO2 of 90%. Eyes: Anicteric sclerae, moist conjunctiva, no lid-lag, PERRLA ENMT: NC/AT,Oropharynx clear, no erythema or exudates. The patient has significant valgus and his oral mucosa. No thrush seen. Neck:Supple, FROM, no masses, or JVD, No carotid bruits; No thyromegaly Lungs: Inspiratory and expiratory rhonchi and coarse breath sounds, Normal respiratory effort, no accessory muscle use currently on AirVO2 50 L. The breath sounds are markedly diminished. Crackles are appreciated throughout the lung petersen specially in the lower lobes bilaterally. Scattered rhonchi heard throughout the lung petersen bilaterally. Cardiovascular: Heart regular in rate and rhythm, No murmurs, gallops, or rubs no peripheral edema Abdominal: Soft Nontender, nom distended, no guarding, no rebound or rigidity, Normoactive bowel sounds No hepatomegaly, No splenomegaly, No palpable mass No abdominal wall hernia noted Skin: Normal temperature, tone, texture, turgor, No induration No subcutaneous nodules, No rash, lesions, No ulcers Extremities:No digital cyanosis No clubbing, Pedal pulses intact and symmetrical Radial pulses intact and symmetrical Normal gait and station, No calf tenderness Neuro: Quadriplegic, with flexion contractures and atrophy of lower extremities, the patient still not as conversive or functional , yet he is arousable and is occasionally following simple commands. He does have some motor functions and his left upper extremity and was told and he was able to feed himself. Currently is nothing by mouth. The patient's overall neurologic functions have remained stable and unchanged compared to yesterday. - Labs CBC & Chem 7: 09/25/18 05:05 09/25/18 05:05 Labs: Abnormal Lab Results - Last 24 Hours (Table) 09/24/18 09/24/18 09/24/18 Range/Units 17:29 17:33 23:56 WBC (3.8-10.6) k/uL RBC (4.30-5.90) m/uL Hgb (13.0-17.5) gm/dL Hct (39.0-53.0) % MCV (80.0-100.0) fL Plt Count (150-450) k/uL Chloride (98-107) mmol/L Creatinine (0.66-1.25) mg/dL POC Glucose (mg/dL) 255 H 129 H 117 H (75-99) mg/dL Calcium (8.4-10.2) mg/dL Phosphorus (2.5-4.5) mg/dL 09/25/18 09/25/18 09/25/18 Range/Units 05:05 05:05 11:57 WBC 3.3 L (3.8-10.6) k/uL RBC 2.48 L (4.30-5.90) m/uL Hgb 8.3 L (13.0-17.5) gm/dL Hct 26.2 L (39.0-53.0) % MCV 105.5 H (80.0-100.0) fL Plt Count 107 L (150-450) k/uL Chloride 115 H (98-107) mmol/L Creatinine 0.51 L (0.66-1.25) mg/dL POC Glucose (mg/dL) 124 H (75-99) mg/dL Calcium 7.7 L (8.4-10.2) mg/dL Phosphorus 1.8 L (2.5-4.5) mg/dL Microbiology - Last 24 Hours (Table) 09/24/18 12:30 Gram Stain - Preliminary Bronchial Washings - Random Bronchial Washings Culture - Preliminary 09/18/18 17:25 Blood Culture - Final Blood No Growth after 144 hours Assessment and Plan Plan: Assessment 1 pseudomonas aeruginosa urinary tract infection currently on IV meropenem. 2 multilobar pneumonia with worsening in pulmonary infiltrates and persistent bilateral pulmonary infiltrates in the right upper lobe and the left lower lob e.the patient is post bronchoscopy in August care was suctioning. Copious amount of secretions was removed from the patient's airways without any major difficulties. The rest or secretions will be sent for Gram stain and culture. Oxidation improved following the bronchoscopy. Currently the patient on high flow oxygen and FiO2 is down to 50%. 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 coli, current E. coli in the sputum has sensitive to Merrem. Most recent urinary cultures showing pseudomonas aeruginosa. 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 Currently the patient is off anticoagulation. The patient was receiving Coumadin and Coumadin is currently on hold. We'll provide the patient Lovenox for his previous history of DVT at a dose of 1.5 mg every 24 hours. 14 failed swallow evaluation patient is currently nothing by mouth.furthermore, the patient a failed attempts for PEG tube insertion . The first procedure failed as the surgeon was unable to identify the esophagus probably related to strictures or atresia. As such, the patient remains nothing by mouth. 15 paroxysmal atrial fibrillation current rhythm is back to sinus and the patient is currently off the Cardizem drip Plan Patient was started on TPN for nutritional support. We'll continue TPN for now. The plan is for a surgical PEG tube insertion on Thursday. Otherwise, the patient is hemodynamically stable. His FiO2 is at 50% this morning high flow and we'll attempt to wean it down as tolerated to maintain a saturation above 90% if possible. He is afebrile. He is mentation has improved compared to yes terday and seems to be much more awake. No other significant events significant events otherwise for now.
--- NOTE | 2018-09-25 16:20 | PN ---
PROGRESS NOTE Mr. Hoang is in atrial fibrillation. Yesterday he apparently had some bradycardia, converted to sinus rhythm, but now he is in atrial fibrillation. Rate control is fairly decent. This gentleman has quadriplegia and has been hospitalized with possibility of UTI, other infections. They had some difficulty placing the PEG tube for this patient. His atrial fibrillation rate is fairly well controlled. He is on 5 mg of Cardizem drip. I am recommending that we continue the same drip. His blood pressure is fairly decent. He is still not very communicative or responsive. He is hemodynamically stable. Physical exam revealed a blood pressure 140/80, pulse rate of about 100, irregular. JVD cannot be appreciated. S1, S2 with a short systolic murmur noted. Irregular rate and rhythm noted. Lungs reveal diminished air entry. Abdomen is distended. Some fluid is noted. RECOMMENDATIONS: I am recommending that we continue Cardizem at 5 mg daily and Eliquis will be 2.5 mg b.i.d. When patient can take oral medications or through the PEG tube, we will switch him to oral agents. Prognosis remains guarded. MMODL / IJN: [id number] /
[2018-09-25 17:02] LABS: Glucose,Whole Blood 132 mg/dL (75-99)
[2018-09-25] MEDS: DILTIAZEM 125 MG in SODIUM CHLORIDE 0.9% 100 ML IV SCH ×2 (17:14→22:10)
[2018-09-25] MEDS ORDERED: ENOXAPARIN 40 MG/0.4 ML SYRINGE SQ SCH (21:00)
[2018-09-25 21:11] LABS: Ionized Calcium 4.8 mg/dL (4.5-5.3)
--- NOTE | 2018-09-25 22:26 | PN ---
PROGRESS NOTE DATE OF SERVICE: 09/25/2018. REASON FOR FOLLOWUP: Pseudomonas UTI and aspiration pneumonia. INTERVAL HISTORY: The patient is currently afebrile. The patient has been breathing comfortably per the RN. The patient has been responding appropriately to them. At the time of my evaluation, apparently, he has received a dose of Ativan and hence was slightly lethargic. Has been started on TPN and PEG tube insertion has been put on hold till Thursday. No history can be obtained from this patient. PHYSICAL EXAMINATION: Blood pressure is 140/82 with a pulse of 82. Temperature 97.8. He is 100% on 40% high- flow oxygen. General description is an elderly male up in the bed in no distress. Respiratory system: Unlabored breathing with decreased breath sounds in bases. No wheeze. Heart S1, S2. Regular rate and rhythm. Abdomen soft, no tenderness. Extremities: No edema of the feet. LABS: Hemoglobin 8.3, white count 3.3 with a BUN of 13, creatinine 0.51. Bronch wash currently pending. DIAGNOSTIC IMPRESSION AND PLAN: Patient with Pseudomonas urinary tract infection, also with concern for recurrent aspiration pneumonia. Patient currently covered with meropenem. He is status post bronch for mucous plugging with bronch culture so far pending. Will continue to monitor the patient closely. Continue meropenem at this point. Continue supportive care. MMODL / IJN: [id number] / MTDD
--- NOTE | 2018-09-26 00:21 | PN ---
PROGRESS NOTE DATE OF SERVICE: September 25, 2018. PRESENTING COMPLAINT: Tired. INTERVAL HISTORY: Patient remains in ICU. The patient has chronic quadriplegia, bed bound, has a chronic suprapubic catheter and has some baseline function of the right upper extremity and doubly incontinent. The patient admitted with sepsis, pneumonia, UTI and Coumadin toxicity. Status post bronchoscopy with large mucus plug was removed. The patient is a bit more awake today, following simple commands, especially the eyes. Remains on the Airvo. FiO2 down to 50%. The patient is pending a PEG tube placement on Thursday. The patient's daughter at the bedside. The patient is on TPN lipids. Remains in atrial fibrillation. The heart rate is controlled. In fact, did flip back into sinus. The patient is back into sinus rhythm as of yesterday. REVIEW OF SYSTEMS: Cannot be done as patient is not really talking. CURRENT MEDICATIONS: Reviewed that include IV Cardizem, TPN, lipids, IV meropenem. EXAMINATION: VITAL SIGNS: Temperature 98.3, pulse 84, respiration 17, blood pressure 146/83, pulse ox 100 percent on high-flow nasal cannula 51%. GENERAL: Lying in bed. EYES: More awake. Does follow commands like opening and closing eyes. HEENT: Nasal cannula in place. Dry oral cavity. NECK: JVD unable to assess. Mass not palpable. RESPIRATORY: Effort increased. LUNGS: Diminished breath sounds. CARDIOVASCULAR: 1st and 2nd heart sounds normal. No edema. ABDOMEN: Soft, nontender. Liver and spleen not palpable. Suprapubic catheter in place. NEUROLOGICAL: Some movement in the right upper extremity. INVESTIGATIONS: White count 3.3, hemoglobin 8.3, potassium 4.2, BUN 13, creatinine 0.51. Accu-Cheks are noted. Chest x-ray shows infiltrates. ASSESSMENT: 1. Bilateral multilobar aspiration pneumonia status post bronchoscopy with large mucus plug that was removed. 2. Acute hypoxic respiratory failure, requiring high-flow oxygen, currently on 51% of what was available, slow to respond. 3. Essential hypertension. 4. Chronic quadriplegia with residual function of the right upper extremity at baseline. 5. Neurogenic bladder with chronic suprapubic catheter. 6. Acute Coumadin toxicity reversed with vitamin K. 7. Acute urinary tract infection with suprapubic catheter with cystitis cultures positive for Pseudomonas Enterococcus faecalis. 8. Acute metabolic encephalopathy from above with slight improvement. 9. Peripheral neuropathy. 10.CODE STATUS: FULL CODE. 11.Paroxysmal atrial fibrillation. Currently patient is back into sinus rhythm as of yesterday. PLAN: We will put the patient on therapeutic dose of Lovenox and hold off the Lovenox dose on Thursday morning. Will be given at 1.5 kilos daily care was discussed with the sister in law at the bedside. Prognosis remains guarded. That was discussed with the sister and brother in law at the bedside. Prognosis remains guarded. MMODL / IJN: [id number] /
[2018-09-26] MEDS: MEROPENEM 1 GM in SODIUM CHLORIDE 0.9% 100 ML IVPB SCH ×3 (00:22→17:52)
[2018-09-26 00:40] LABS: Glucose,Whole Blood 143 mg/dL (75-99)
[2018-09-26 06:01] LABS: Glucose,Whole Blood 125 mg/dL (75-99)
[2018-09-26 06:05] LABS: HCT 25.4 % (39.0-53.0); HGB 7.6 gm/dL (13.0-17.5); Hypochromasia Marked; MCH 31.1 pg (25.0-35.0); MCHC 30.1 g/dL (31.0-37.0); MCV 103.4 fL (80.0-100.0); Macrocytosis Moderate; Mean Platelet Volume 7.9; Platelet Count 135 k/uL (150-450); RBC 2.45 m/uL (4.30-5.90); RDW 15.1 % (11.5-15.5); WBC 3.2 k/uL (3.8-10.6)
[2018-09-26 06:17] LABS: ALT 27 U/L (21-72); AST 28 U/L (17-59); Albumin 2.1 g/dL (3.5-5.0); Alkaline Phosphatase 63 U/L (38-126); Anion Gap 1 mmol/L; Blood Urea Nitrogen 14 mg/dL (9-20); Calcium 7.5 mg/dL (8.4-10.2); Carbon Dioxide 29 mmol/L (22-30); Chloride 114 mmol/L (98-107); Glucose 115 mg/dL (74-99); Magnesium 2.1 mg/dL (1.6-2.3); Phosphorus 2.3 mg/dL (2.5-4.5); Potassium 3.9 mmol/L (3.5-5.1); Sodium 144 mmol/L (137-145); Total Bilirubin 1.1 mg/dL (0.2-1.3); Total Protein 4.4 g/dL (6.3-8.2)
[2018-09-26] MEDS ORDERED: Potassium Replacement Protocol 1 EACH MISC MISCELLANE PRN (06:31)
[2018-09-26] MEDS ORDERED: POTASSIUM CHLORIDE 20 MEQ in WATER FOR INJECTION 1 100ML.BAG IVPB SCH (07:00)
--- NOTE | 2018-09-26 08:52 | PN ---
PROGRESS NOTE This gentleman with probably chronic atrial fibrillation and there were some issues with PEG tube placement. He has also quadriplegia and question of aspiration pneumonia. He is in atrial fib and throughout the night they were using Cardizem on and off 5 mg/hour, but rate control is good. Urine output is decent. I am recommending that we place him on Cardizem drip 5 mg/hour and when he can take orally, we will discontinue the drip and give oral medications. He can get Lovenox this morning, but we will hold the evening dose in preparation for the PEG tube tomorrow. Vital signs are stable. Blood pressure is 140/80, pulse rate is about 80-90 irregular. Short systolic murmur noted at the base. Lungs reveal bilateral air entry. Abdomen is distended. There is some ascites. Lower extremities reveal edema with diminished pulses. MMODL / IJN: [id number] /
[2018-09-26] MEDS: CHOLECALCIFEROL 400 UNIT TAB PO SCH (08:56)
[2018-09-26] MEDS: IPRATROPIUM-ALBUTEROL 3 ML NEB INHALATION SCH ×4 (08:58→21:54)
[2018-09-26] MEDS ORDERED: ENOXAPARIN 120 MG/0.8 ML SYRINGE SQ SCH (09:00)
[2018-09-26] MEDS: guaiFENesin 600 MG TABLET.ER PO SCH (09:01)
[2018-09-26] MEDS: LEVOTHYROXINE IVP 100 MCG/5 ML VIAL IV SCH (09:01)
[2018-09-26] MEDS: ENOXAPARIN 80 MG/0.8 ML SYRINGE SQ SCH ×2 (09:01→17:54)
[2018-09-26] MEDS: DILTIAZEM 125 MG in SODIUM CHLORIDE 0.9% 100 ML IV SCH (09:02)
[2018-09-26] MEDS: MULTIVITAMINS, THERA 1 EACH TAB PO SCH (09:02)
[2018-09-26] MEDS: PANTOPRAZOLE 40 MG/10 ML VIAL IVP SCH (09:02)
--- NOTE | 2018-09-26 12:01 | P.PN ---
Subjective Progress Note Date: 09/26/18 Resume evaluation of 09/26/2018, I'm seeing this patient for a follow-up. The patient is doing well. He is breathing status is stable. The patient was taken off the high flow and the patient is currently on phase of oxygen nasal cannula. His cough is weak yet effective. No nausea. No vomiting. No diarrhea. He is receiving TPN for nutritional support. The plan is to proceed with a activity insertion and this will be a surgical approach on Thursday. He is started on the same antibiotic coverage regarding his UTI and pneumonia. No other new complaints for now. The patient is very calm and comfortable. There are no other significant events overnight. His white cell count is at 3.2. Hemoglobin is at 7.6. Normal renal function. Objective - Vital Signs Vital signs: Vital Signs Temp 96.4 F L 09/26/18 04:00 Pulse 85 09/26/18 11:00 Resp 14 09/26/18 11:00 BP 143/73 09/26/18 11:00 Pulse Ox 98 09/26/18 11:00 Intake & Output 09/25/18 09/26/18 09/26/18 18:59 06:59 18:59 Intake Total 1989.5 960 679 Output Total 1250 1260 375 Balance 739.5 -300 304 Weight 73.1 kg 74 kg Intake: IV 1890 960 500 Dextrose 5%-0.9% NaCl 1, 750 600 250 000 ml @ 50 mls/hr IV . Q20H MERRY Rx#:[id number] Magnesium Sulfate-D5w Pmx 100 1 gm In Dextrose/Water 1 100ml.bag @ 100 mls/hr IVPB Q1H MERRY Rx#: [id number] Magnesium Sulfate-D5w Pmx 100 1 gm In Dextrose/Water 1 100ml.bag @ 100 mls/hr IVPB Q1H MERRY Rx#: [id number] Meropenem 1 gm In Sodium 200 100 Chloride 0.9% 100 ml @ 200 mls/hr IVPB Q8HR MERRY Rx#:[id number] Potassium Phosphate 15 240 360 150 mmol Sodium Acetate 30 meq Magnesium Sulfate gm 1 gm Calcium Gluconate 1 gm In Amino Acid 5%-D15w 1,000 ml @ 65 mls/hr IV . BY DURATION MERRY Rx#: [id number] Sodium Phosphate 10 mmol 500 In Sodium Chloride 0.9% 250 ml @ 125 mls/hr IVPB Q2H MERRY Rx#:[id number] Intake, IV Titration 99.5 179 Amount Diltiazem 125 mg In 99.5 79 Sodium Chloride 0.9% 100 ml @ 10 MG/HR 10 mls/hr IV .[id number] MERRY Rx#: [id number] Potassium Chloride 20 meq 100 In Water For Injection 1 100ml.bag @ 50 mls/hr IVPB Q1H MERRY Rx#: [id number] Output: Urine 1250 1260 375 Other: Voiding Method Indwelling Catheter Indwelling Catheter Indwelling Catheter - Exam Constitutional: She is calm and comfortable currently 3 l of oxygen nasal cannula. Eyes: Anicteric sclerae, moist conjunctiva, no lid-lag, PERRLA ENMT: NC/AT,Oropharynx clear, no erythema or exudates. The patient has significant valgus and his oral mucosa. No thrush seen. Neck:Supple, FROM, no masses, or JVD, No carotid bruits; No thyromegaly Lungs: Inspiratory and expiratory rhonchi and coarse breath sounds, Normal respiratory effort, no accessory muscle use currently on AirVO2 50 L. The breath sounds are markedly diminished. Crackles are appreciated throughout the lung petersen specially in the lower lobes bilaterally. Scattered rhonchi heard throughout the lung petersen bilaterally. Cardiovascular: Heart regular in rate and rhythm, No murmurs, gallops, or rubs no peripheral edema Abdominal: Soft Nontender, nom distended, no guarding, no rebound or rigidity, Normoactive bowel sounds No hepatomegaly, No splenomegaly, No palpable mass No abdominal wall hernia noted Skin: Normal temperature, tone, texture, turgor, No induration No subcutaneous nodules, No rash, lesions, No ulcers Extremities:No digital cyanosis No clubbing, Pedal pulses intact and symmetrical Radial pulses intact and symmetrical Normal gait and station, No calf tenderness Neuro: Quadriplegic, with flexion contractures and atrophy of lower extremities, the patient still not as conversive or functional , yet he is arousable and is o ccasionally following simple commands. He does have some motor functions and his left upper extremity and was told and he was able to feed himself. Currently is nothing by mouth. The patient's overall neurologic functions have remained stable and unchanged compared to yesterday. - Labs CBC & Chem 7: 03/24/19 05:28 09/26/18 05:28 Labs: Abnormal Lab Results - Last 24 Hours (Table) 09/25/18 09/25/18 09/26/18 Range/Units 11:57 17:01 00:38 WBC (3.8-10.6) k/uL RBC (4.30-5.90) m/uL Hgb (13.0-17.5) gm/dL Hct (39.0-53.0) % MCV (80.0-100.0) fL MCHC (31.0-37.0) g/dL Plt Count (150-450) k/uL Chloride (98-107) mmol/L Creatinine (0.66-1.25) mg/dL Glucose (74-99) mg/dL POC Glucose (mg/dL) 124 H 132 H 143 H (75-99) mg/dL Calcium (8.4-10.2) mg/dL Phosphorus (2.5-4.5) mg/dL Total Protein (6.3-8.2) g/dL Albumin (3.5-5.0) g/dL 09/26/18 09/26/18 09/26/18 Range/Units 05:28 05:28 06:00 WBC 3.2 L (3.8-10.6) k/uL RBC 2.45 L (4.30-5.90) m/uL Hgb 7.6 L (13.0-17.5) gm/dL Hct 25.4 L (39.0-53.0) % MCV 103.4 H (80.0-100.0) fL MCHC 30.1 L (31.0-37.0) g/dL Plt Count 135 L (150-450) k/uL Chloride 114 H (98-107) mmol/L Creatinine 0.52 L (0.66-1.25) mg/dL Glucose 115 H (74-99) mg/dL POC Glucose (mg/dL) 125 H (75-99) mg/dL Calcium 7.5 L (8.4-10.2) mg/dL Phosphorus 2.3 L (2.5-4.5) mg/dL Total Protein 4.4 L (6.3-8.2) g/dL Albumin 2.1 L (3.5-5.0) g/dL Microbiology - Last 24 Hours (Table) 09/24/18 12:30 Gram Stain - Final Bronchial Washings - Random Bronchial Washings Culture - Final Rosalie albicans Assessment and Plan Plan: Assessment 1 pseudomonas aeruginosa urinary tract infection currently on IV meropenem. 2 multilobar pneumonia with the current antibiotic coverage. The patient is status post bronchoscopy and therapeutic airway suctioning and currently the patient was taken off the high flow oxygen and is currently down to 3 L of oxygen nasal cannula. 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 coli, current E. coli in the sputum has sensitive to Merrem. Most recent urinary cultures showing pseudomonas aeruginosa. 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 Currently the patient is off anticoagulation. The patient was receiving Coumadin and Coumadin is currently on hold. We'll provide the patient Lovenox for his previous history of DVT at a dose of 1.5 mg every 24 hours. 14 failed swallow evaluation patient is currently nothing by mouth.furthermore, the patient a failed attempts for PEG tube insertion . The first procedure failed as the surgeon was unable to identify the esophagus probably related to strictures or atresia. As such, the patient remains nothing by mouth. 15 paroxysmal atrial fibrillation current rhythm is back to sinus Plan We will going to stop the evening dose of Lovenox. Given the morning dose. We'll preparing this patient for surgical PEG tube insertion in a.m. His oxygenation is improved. Is currently on feeds of oxygen nasal cannula. Continue the Cardizem drip for rate control. His cardiac rhythm is sinus. We'll continue to follow. Home I status is stable and improving. Nevertheless the long-term prognosis poor based on the above-mentioned comorbidities.
[2018-09-26 12:52] LABS: Glucose,Whole Blood 138 mg/dL (75-99)
--- NOTE | 2018-09-26 16:39 | PN ---
PROGRESS NOTE DATE OF SERVICE: 09/26/18. PRESENTING COMPLAINT: Tired. INTERVAL HISTORY: Patient remains in the ICU. The patient has chronic quadriplegia, right now has a chronic suprapubic catheter and baseline has some function of the right upper extremity and doubly incontinent. The patient is admitted with sepsis, pneumonia, UTI, Coumadin toxicity, status post bronchoscopy, large mucus plug was removed. The patient is down to nasal cannula 3 L pending a PEG tube placement tomorrow. Remains in atrial fibrillation, rate controlled on IV Cardizem drip. REVIEW OF SYSTEMS: Cannot be done as the patient does follow commands, but really exhausted. CURRENT MEDICATIONS: Reviewed that include DuoNeb, IV Cardizem drip, TPN, lipids and IV meropenem. EXAMINATION: Afebrile, pulse 95, respiration 14, blood pressure 143/73 pulse ox 98% on 3 L. GENERAL APPEARANCE: Sitting in bed, more awake, tired-appearing. EYES: Pupils equal, conjunctivae normal. NECK: JVD unable to assess. Mass not palpable. RESPIRATORY: Effort increased. LUNGS: Decreased breath sounds. CARDIOVASCULAR: 1st and 2nd sounds normal. No edema. ABDOMEN: Soft, nontender. Liver and spleen not palpable. Suprapubic catheter in place. NEUROLOGICAL: Attempting to talk. Movement in the right upper extremity. INVESTIGATIONS: White count 3.2, hemoglobin 7.6, potassium 3.9, BUN 14, creatinine 0.52, albumin 2.1. ASSESSMENT: 1. Bilateral multilobar aspiration pneumonia, status post bronchoscopy, large mucus plug that was removed. 2. Acute hypoxic respiratory failure, requiring high-flow oxygen now down to nasal cannula. 3. Essential hypertension. 4. Chronic quadriplegia with residual function of the right upper extremity at baseline. 5. Neurogenic bladder with chronic suprapubic catheter. 6. Acute Coumadin toxicity, reversed with vitamin K. 7. Acute urinary tract infection with suprapubic catheter with cystitis cultures positive for Pseudomonas and Enterococcus faecalis. 8. Acute metabolic encephalopathy from above, some improvement. 9. Peripheral neuropathy. 10.CODE STATUS: FULL CODE. 11.Paroxysmal atrial fibrillation. The patient has been in sinus rhythm. PLAN: Continue current medication and treatment plan. Lovenox will be held off today for possible PEG tube. Did speak to the nurse to get a re-evaluation by speech to see if the patient can tolerate oral intake before we proceed with a PEG tube tomorrow. MMSAYL / IJN: [id number] /
[2018-09-26] MEDS: DEXTROSE 5%-0.9% NACL 1,000 ML IV SCH (17:52)
--- NOTE | 2018-09-26 18:01 | PN ---
PROGRESS NOTE DATE OF SERVICE: 09/26/2018. REASON FOR FOLLOWUP: Pseudomonas urinary tract infection and aspiration pneumonia. INTERVAL HISTORY: The patient is currently afebrile and the patient is hemodynamically stable. Not on any pressor support. The patient remains to be lethargic and providing any history. No nausea, vomiting has been noticed. Remains to be weak and no diarrhea reported. PHYSICAL EXAMINATION: Blood pressure 120/66, pulse of 75, temperature 98. He is 96% on 3 L nasal cannula. General description is an elderly male lying in bed in no distress. RESPIRATORY SYSTEM: Unlabored breathing. Clear to auscultation anteriorly. HEART: S1, S2. Regular rate and rhythm. ABDOMEN: Soft, no tenderness. LABS: Hemoglobin 7.8, white count of 3.2, BUN of 14, creatinine 0.52. DIAGNOSTIC IMPRESSION AND PLAN: Patient admitted to hospital with sepsis, source was Pseudomonas urinary tract infection and a component of aspiration pneumonia. Patient is currently on meropenem. He is status post bronch. Blood culture has been negative for resistant pathogen. He is currently on meropenem, will continue for now and monitor his clinical course closely. Family present at bedside. Their questions were answered. MMODL / IJN: [id number] /
[2018-09-26 23:43] LABS: Glucose,Whole Blood 177 mg/dL (75-99)
[2018-09-27] MEDS: MEROPENEM 1 GM in SODIUM CHLORIDE 0.9% 100 ML IVPB SCH ×4 (00:34→23:06)
[2018-09-27] MEDS: guaiFENesin 600 MG TABLET.ER PO SCH ×3 (00:36→19:46)
[2018-09-27] MEDS: INSULIN ASPART (NovoLOG) 100 UNIT/ML VIAL SQ SCH ×4 (00:39→18:57)
[2018-09-27] MEDS: DILTIAZEM 125 MG in SODIUM CHLORIDE 0.9% 100 ML IV SCH ×2 (00:42→08:34)
[2018-09-27 06:06] LABS: Glucose,Whole Blood 115 mg/dL (75-99)
[2018-09-27 06:35] LABS: Anion Gap 2 mmol/L; Blood Urea Nitrogen 18 mg/dL (9-20); Calcium 7.8 mg/dL (8.4-10.2); Carbon Dioxide 27 mmol/L (22-30); Chloride 112 mmol/L (98-107); Glucose 105 mg/dL (74-99); Phosphorus 1.8 mg/dL (2.5-4.5); Potassium 3.8 mmol/L (3.5-5.1); Sodium 141 mmol/L (137-145)
--- NOTE | 2018-09-27 06:38 | P.PN ---
Subjective Progress Note Date: 09/26/18 CHIEF COMPLAINT: Protein malnutrition HISTORY OF PRESENT ILLNESS: The patient is a 82-year-old gentleman with attempted upper endoscopy for PEG tube placement however unsuccessful due to unable to intubate esophagus. He is on TPN. Currently getting a nebulizer treatment. No new compliants. PHYSICAL EXAM: VITAL SIGNS: Reviewed CONSTITUTIONAL: Well developed and in no acute distress. EYES: Conjuctivae without sclera icterus. Extraocular movements grossly intact. HEAD, EARS, NOSE, THROAT: Moist buccal mucosa. Head is atraumatic, normocephalic. No nasal drainage. NECK: No thyroidomegaly. RESPIRATORY: Non-labored respirations and equal bilateral excursions. CARDIOVASCULAR: Palpable 2+ radial pulses. Regular rate. ABDOMEN: Soft. Non-tender. MUSCULOSKELETAL: Quadriplegia. No clubbing cyanosis SKIN: Well perfused. Good skin turgor. NEUROLOGIC: Cranial nerves I through XII grossly intact. No focal or lateralizing signs. PSYCH: Appropriate affect. Alert and oriented to person, place and time. CLINCAL LABS: Reviewed ASSESSMENT: 1. Inadequate protein intake with malnutrition 2. Aborted upper endoscopy for PEG tube placement 3. Pneumonia 4. Leukopenia, new 5. Pancytopenia PLAN: 1. Surgical gastrostomy tube placement re-assessment tomorrow. 2. Continue with TPN 3. Alternatively, tertiary care referral for IR placed feeding tube reviewed. Critical care time 11 minutes Objective - Vital Signs Vital signs: Vital Signs Temp 96.4 F L 09/26/18 04:00 Pulse 85 09/26/18 11:00 Resp 14 09/26/18 11:00 BP 143/73 09/26/18 11:00 Pulse Ox 98 09/26/18 11:00 Intake & Output 09/25/18 09/26/18 09/26/18 18:59 06:59 18:59 Intake Total 1989.5 960 679 Output Total 1250 1260 375 Balance 739.5 -300 304 Weight 73.1 kg 74 kg Intake: IV 1890 960 500 Dextrose 5%-0.9% NaCl 1, 750 600 250 000 ml @ 50 mls/hr IV . Q20H MERRY Rx#:[id number] Magnesium Sulfate-D5w Pmx 100 1 gm In Dextrose/Water 1 100ml.bag @ 100 mls/hr IVPB Q1H MERRY Rx#: [id number] Magnesium Sulfate-D5w Pmx 100 1 gm In Dextrose/Water 1 100ml.bag @ 100 mls/hr IVPB Q1H MERRY Rx#: [id number] Meropenem 1 gm In Sodium 200 100 Chloride 0.9% 100 ml @ 200 mls/hr IVPB Q8HR MERRY Rx#:[id number] Potassium Phosphate 15 240 360 150 mmol Sodium Acetate 30 meq Magnesium Sulfate gm 1 gm Calcium Gluconate 1 gm In Amino Acid 5%-D15w 1,000 ml @ 65 mls/hr IV . BY DURATION MERRY Rx#: [id number] Sodium Phosphate 10 mmol 500 In Sodium Chloride 0.9% 250 ml @ 125 mls/hr IVPB Q2H MERRY Rx#:[id number] Intake, IV Titration 99.5 179 Amount Diltiazem 125 mg In 99.5 79 Sodium Chloride 0.9% 100 ml @ 10 MG/HR 10 mls/hr IV .[id number] MERRY Rx#: [id number] Potassium Chloride 20 meq 100 In Water For Injection 1 100ml.bag @ 50 mls/hr IVPB Q1H MERRY Rx#: [id number] Output: Urine 1250 1260 375 Other: Voiding Method Indwelling Catheter Indwelling Catheter Indwelling Catheter - Labs CBC & Chem 7: 09/26/18 05:28 09/26/18 05:28 Labs: Abnormal Lab Results - Last 24 Hours (Table) 09/25/18 09/25/18 09/26/18 Range/Units 11:57 17:01 00:38 WBC (3.8-10.6) k/uL RBC (4.30-5.90) m/uL Hgb (13.0-17.5) gm/dL Hct (39.0-53.0) % MCV (80.0-100.0) fL MCHC (31.0-37.0) g/dL Plt Count (150-450) k/uL Chloride (98-107) mmol/L Creatinine (0.66-1.25) mg/dL Glucose (74-99) mg/dL POC Glucose (mg/dL) 124 H 132 H 143 H (75-99) mg/dL Calcium (8.4-10.2) mg/dL Phosphorus (2.5-4.5) mg/dL Total Protein (6.3-8.2) g/dL Albumin (3.5-5.0) g/dL 09/26/18 09/26/18 09/26/18 Range/Units 05:28 05:28 06:00 WBC 3.2 L (3.8-10.6) k/uL RBC 2.45 L (4.30-5.90) m/uL Hgb 7.6 L (13.0-17.5) gm/dL Hct 25.4 L (39.0-53.0) % MCV 103.4 H (80.0-100.0) fL MCHC 30.1 L (31.0-37.0) g/dL Plt Count 135 L (150-450) k/uL Chloride 114 H (98-107) mmol/L Creatinine 0.52 L (0.66-1.25) mg/dL Glucose 115 H (74-99) mg/dL POC Glucose (mg/dL) 125 H (75-99) mg/dL Calcium 7.5 L (8.4-10.2) mg/dL Phosphorus 2.3 L (2.5-4.5) mg/dL Total Protein 4.4 L (6.3-8.2) g/dL Albumin 2.1 L (3.5-5.0) g/dL Microbiology - Last 24 Hours (Table) 09/24/18 12:30 Gram Stain - Final Bronchial Washings - Random Bronchial Washings Culture - Final Rosalie albicans Assessment and Plan (1) Inadequate dietary intake of protein Current Visit: Yes Status: Acute Code(s): R63.8 - OTHER SYMPTOMS AND SIGNS CONCERNING FOOD AND FLUID INTAKE SNOMED Code(s): 564083545 (2) Pneumonia Current Visit: Yes Status: Acute Code(s): J18.9 - PNEUMONIA, UNSPECIFIED ORGANISM SNOMED Code(s): 770595416 (3) Thrombocytopenia Current Visit: Yes Status: Acute Code(s): D69.6 - THROMBOCYTOPENIA, UNSPECIFIED SNOMED Code(s): 763300738 (4) Urinary tract infection Current Visit: Yes Status: Acute Code(s): N39.0 - URINARY TRACT INFECTION, SITE NOT SPECIFIED SNOMED Code(s): 40726681
[2018-09-27] MEDS ORDERED: Phosphorus Replacement Protoco 1 EACH MISC MISCELLANE PRN (06:51)
[2018-09-27] MEDS: IPRATROPIUM-ALBUTEROL 3 ML NEB INHALATION SCH ×4 (07:16→20:03)
[2018-09-27] MEDS: PANTOPRAZOLE 40 MG/10 ML VIAL IVP SCH (08:32)
[2018-09-27] MEDS: LEVOTHYROXINE IVP 100 MCG/5 ML VIAL IV SCH (08:32)
[2018-09-27] MEDS: MULTIVITAMINS, THERA 1 EACH TAB PO SCH (08:33)
[2018-09-27] MEDS: DEXTROSE 5%-0.9% NACL 1,000 ML IV SCH (08:33)
[2018-09-27] MEDS: ENOXAPARIN 80 MG/0.8 ML SYRINGE SQ SCH ×2 (08:34→19:57)
[2018-09-27] MEDS: POTASSIUM PHOSPHATE 10 MMOL in SODIUM CHLORIDE 0.9% 100 ML IV SCH ×2 (08:41→10:29)
[2018-09-27] MEDS: CHOLECALCIFEROL 400 UNIT TAB PO SCH (10:29)
--- NOTE | 2018-09-27 10:57 | P.PN ---
Subjective Progress Note Date: 09/27/18 CHIEF COMPLAINT: PEG tube placement HISTORY OF PRESENT ILLNESS: Patient is s/p attempted PEG tube insertion. Unable to complete due to inability to intubate the esophagus. The patient is currently receiving TPN. He is resting comfortably. PHYSICAL EXAM: VITAL SIGNS: Reviewed. GENERAL: Well-developed in no acute distress. HEENT: No sclera icterus. Extraocular movements grossly intact. Moist buccal mucosa. Head is atraumatic, normocephalic. ABDOMEN: Soft. Nondistended. Nontender. NEUROLOGIC: Nonverbal. Patient able to communicate by nodding his head yes or no. Quadriplegic. Currently sleeping. ASSESSMENT: 1. Malnutrition, patient failed swallow screen, s/p unsuccessful attempts of Dobbhoff insertion 2. Aborted upper endoscopy for PEG tube placement, unable to intubate esophagus PLAN: 1. Continue TPN 2. Patient to undergo open gastrostomy tube placement today with Dr. Christian Nurse practitioner note has been reviewed by physician. Signing provider agrees with the documented findings, assessment, and plan of care. Objective - Vital Signs Vital signs: Vital Signs Temp 97.4 F L 09/27/18 08:00 Pulse 120 H 09/27/18 09:00 Resp 15 09/27/18 09:00 BP 142/76 09/27/18 09:00 Pulse Ox 97 09/27/18 09:00 Intake & Output 09/26/18 09/27/18 09/27/18 18:59 06:59 18:59 Intake Total 1444 1128.333 434.333 Output Total 750 785 275 Balance 694 343.333 159.333 Weight 74 kg Intake: IV 1265 1050 295 Dextrose 5%-0.9% NaCl 1, 600 270 000 ml @ 50 mls/hr IV . Q20H [facility] Rx#:[id number] Meropenem 1 gm In Sodium 200 100 Chloride 0.9% 100 ml @ 200 mls/hr IVPB Q8HR [facility] Rx#:[id number] Potassium Phosphate 15 465 780 195 mmol Sodium Acetate 30 meq Magnesium Sulfate gm 1 gm Calcium Gluconate 1 gm In Amino Acid 5%-D15w 1,000 ml @ 65 mls/hr IV . BY DURATION [facility] Rx#: [id number] Intake, IV Titration 179 78.333 139.333 Amount Diltiazem 125 mg In 79 78.333 39.333 Sodium Chloride 0.9% 100 ml @ 10 MG/HR 10 mls/hr IV .[id number] [facility] Rx#: [id number] Potassium Chloride 20 meq 100 In Water For Injection 1 100ml.bag @ 50 mls/hr IVPB Q1H [facility] Rx#: [id number] Potassium Phosphate 10 100 mmol In Sodium Chloride 0 .9% 100 ml @ 50 mls/hr IV Q2H [facility] Rx#:[id number] Output: Urine 750 785 275 Other: Voiding Method Indwelling Catheter Indwelling Catheter Indwelling Catheter - Labs CBC & Chem 7: 09/26/18 05:28 09/27/18 06:02 Labs: Abnormal Lab Results - Last 24 Hours (Table) 09/26/18 09/26/18 09/27/18 Range/Units 12:50 23:41 06:02 Chloride 112 H (98-107) mmol/L Creatinine 0.51 L (0.66-1.25) mg/dL Glucose 105 H (74-99) mg/dL POC Glucose (mg/dL) 138 H 177 H (75-99) mg/dL Calcium 7.8 L (8.4-10.2) mg/dL Phosphorus 1.8 L (2.5-4.5) mg/dL 09/27/18 Range/Units 06:05 Chloride (98-107) mmol/L Creatinine (0.66-1.25) mg/dL Glucose (74-99) mg/dL POC Glucose (mg/dL) 115 H (75-99) mg/dL Calcium (8.4-10.2) mg/dL Phosphorus (2.5-4.5) mg/dL Microbiology - Last 24 Hours (Table) 09/24/18 12:30 Gram Stain - Final Bronchial Washings - Random Bronchial Washings Culture - Final Rosalie albicans
--- NOTE | 2018-09-27 11:03 | P.PN ---
Subjective Progress Note Date: 09/27/18 Principal diagnosis: Acute pseudomonas aeruginosa urinary tract infection and multilobar pneumonia This is an 82-year-old white male, known history of quadriplegia, admitted on , main admitting diagnosis was sepsis, acute hypoxic respiratory failure, aspiration pneumonia, Pseudomonas urinary tract infection, electrolytes imbalance, coagulopathy and thrombocytopenia. His blood cultures have been negative since admission, his urine cultures were positive for pseudomonas aeruginosa sputum cultures positive for Rosalie albicans and E. coli. Patient was seen by Dr. Rivas on consultation, and he was treated with Merrem, he underwent a bronchoscopy and bronchoalveolar lavage, and it was eventually recommended that the patient needs a PEG tube placement. Dr. lópez saw the patient on consultation, and he underwent a trial of PEG tube placement, however numerous attempts were made and esophagus could not be intubated. Then it was the recommendation of undergoing surgical approach for a PEG tube placement and this would be done today by Dr. Christian. I saw the patient today in the ICU, he looks very comfortable, he is on 2 L nasal cannula, in no distress, he seems quite edematous and I believe that's probably because of his poor nutritional status, and hypoalbuminemia. Patient is on TPN for nutritional support. He is also on antibiotics for UTI and pneumonia. Labs were reviewed had a relatively normal electrolytes, normal renal profile, hemoglobin is 7.6. WBC count is 3.2. His last chest x-ray from 09/25 showed cardiomegaly and small pleural effusions, and bilateral airspace disease. Objective - Vital Signs Vital signs: Vital Signs Temp 97.4 F L 09/27/18 08:00 Pulse 120 H 09/27/18 09:00 Resp 15 09/27/18 09:00 BP 142/76 09/27/18 09:00 Pulse Ox 97 09/27/18 09:00 Intake & Output 09/26/18 09/27/18 09/27/18 18:59 06:59 18:59 Intake Total 1444 1128.333 434.333 Output Total 750 785 275 Balance 694 343.333 159.333 Weight 74 kg Intake: IV 1265 1050 295 Dextrose 5%-0.9% NaCl 1, 600 270 000 ml @ 50 mls/hr IV . Q20H [facility] Rx#:[id number] Meropenem 1 gm In Sodium 200 100 Chloride 0.9% 100 ml @ 200 mls/hr IVPB Q8HR [facility] Rx#:[id number] Potassium Phosphate 15 465 780 195 mmol Sodium Acetate 30 meq Magnesium Sulfate gm 1 gm Calcium Gluconate 1 gm In Amino Acid 5%-D15w 1,000 ml @ 65 mls/hr IV . BY DURATION [facility] Rx#: [id number] Intake, IV Titration 179 78.333 139.333 Amount Diltiazem 125 mg In 79 78.333 39.333 Sodium Chloride 0.9% 100 ml @ 10 MG/HR 10 mls/hr IV .[id number] [facility] Rx#: [id number] Potassium Chloride 20 meq 100 In Water For Injection 1 100ml.bag @ 50 mls/hr IVPB Q1H [facility] Rx#: [id number] Potassium Phosphate 10 100 mmol In Sodium Chloride 0 .9% 100 ml @ 50 mls/hr IV Q2H [facility] Rx#:[id number] Output: Urine 750 785 275 Other: Voiding Method Indwelling Catheter Indwelling Catheter Indwelling Catheter - Exam Physical Exam: Revealed an 82-year-old white male in no distress, paraplegic. On 3 L nasal cannula. Head: Atraumatic, normocephalic, dry mucous membranes noted. HEENT:[Neck is supple.] [No neck masses.] [No thyromegaly.] [No JVD.] PERRLA, EOMI, no icterus, dry mucous membranes noted. Chest: [Crackles and rhonchi at the bases, symmetrical chest expansion, no chest wall tenderness.] Cardiac Exam: [Irregular irregular rhythm Normal S1 and S2, no S3 gallop, no murmur.] Abdomen: [Soft, nontender, no megaly, no rebound, no guarding, normal bowel sounds.] Edematous abdominal wall is noted. Extremities: [No clubbing, 2+ bipedal edema, no cyanosis. No calf tenderness. Neurological Exam: Paraplegic, otherwise [No focal neurologic deficit.] Patient is nonverbal, communicates by nodding his head. Flexion contractures and atrophy of lower extremities noted. Skin: No rashes. Lymphatics: No lymphadenopathy. - Labs CBC & Chem 7: 09/26/18 05:28 09/27/18 06:02 Labs: Abnormal Lab Results - Last 24 Hours (Table) 09/26/18 09/26/18 09/27/18 Range/Units 12:50 23:41 06:02 Chloride 112 H (98-107) mmol/L Creatinine 0.51 L (0.66-1.25) mg/dL Glucose 105 H (74-99) mg/dL POC Glucose (mg/dL) 138 H 177 H (75-99) mg/dL Calcium 7.8 L (8.4-10.2) mg/dL Phosphorus 1.8 L (2.5-4.5) mg/dL 09/27/18 Range/Units 06:05 Chloride (98-107) mmol/L Creatinine (0.66-1.25) mg/dL Glucose (74-99) mg/dL POC Glucose (mg/dL) 115 H (75-99) mg/dL Calcium (8.4-10.2) mg/dL Phosphorus (2.5-4.5) mg/dL Microbiology - Last 24 Hours (Table) 09/24/18 12:30 Gram Stain - Final Bronchial Washings - Random Bronchial Washings Culture - Final Rosalie albicans Assessment and Plan Assessment: Impression: 1 acute hypoxic respiratory failure secondary to pneumonia, most likely aspiration pneumonia unless for otherwise. His sputum cultures have been positive for E. coli and for Rosalie albicans. 2 acute urinary tract infection secondary to pseudomonas aeruginosa 3 hyponatremia on presentation, resolved since admission. 4 supra pubic catheter for recurrent urinary tract infection 5 quadriplegia secondary to previous cervical fracture 6 previous history of deep vein thrombosis maintained on intermodal customer service anticoagulation therapy 7 failed the swallow evaluation, patient is scheduled for PEG tube placement surgically today since previous attempts to do it under IV conscious sedation failed. 8 paroxysmal atrial fibrillation, 9 Coumadin toxicity on admission, resolved 10 history of hypertension 11 history of hypothyroidism Recommendation: Continue present supportive care measures. Patient is scheduled for surgical placement of PEG tube today, he will come back to the intensive care unit, and I will likely watch him and monitor the patient overnight, and if he continues to do well, may consider causing the patient to a monitor bed on selective. Long-term prognosis remains extremely poor and guarded. Time with Patient: Less than 30
[2018-09-27 12:06] LABS: Glucose,Whole Blood 136 mg/dL (75-99)
--- NOTE | 2018-09-27 12:08 | P.PN ---
Progress Note - Text Progress Note Date: 09/27/18 The patient was unable to have a PEG tube placed last week with Dr. Gilbert secondary to a oral pharyngeal stricture. Patient will undergo open placement of gastrostomy tube today.
[2018-09-27] MEDS ORDERED: GLYCOPYRROLATE 0.2 MG/ML 2 ML VIAL ONE (12:15)
[2018-09-27] MEDS ORDERED: ETOMIDATE 2 MG/ML 10 ML VIAL ONE (12:15)
[2018-09-27] MEDS ORDERED: NEOSTIGMINE 1 MG/ML 10 ML VIAL ONE (12:15)
[2018-09-27] MEDS ORDERED: PHENYLEPHRINE-0.9% NACL SYG 1 MG/10 ML SYRINGE ONE (12:15)
[2018-09-27] MEDS ORDERED: LIDOCAINE 1% INJ 10MG/ML (20 ML MDV) ONE (12:15)
[2018-09-27] MEDS ORDERED: ROCURONIUM BROMIDE 10 MG/ML 10 ML VIAL IV ONE (12:15)
[2018-09-27] MEDS ORDERED: IV FLUID CONTINUATION 1,000 ML IV ONE (12:22)
--- NOTE | 2018-09-27 13:43 | P.OP ---
Date of Procedure: 09/27/18 Preoperative Diagnosis: Malnutrition Postoperative Diagnosis: Malnutrition Incisional hernia Procedure(s) Performed: Open gastrostomy tube Repair of incisional hernia Anesthesia: GILES Surgeon: Jose Christian Estimated Blood Loss (ml): 5 Pathology: none sent Condition: stable Disposition: PACU Description of Procedure: Patient's placed the operative table in the supine position. He received general anesthesia. Patient's abdomen was prepped and draped usual sterile fas ion. The patient a previous history of a gastrostomy tube and a upper midline incision suggestive of an open gastrostomy tube. The skin was incised to the previously midline scar. There was an incisional hernia encountered. The fascia was opened with left cautery and then the stomach was visualized. The stomach was adherent to the anterior abdominal wall from the previous gastrostomy site. Using left cautery a small incision was made in the skin at the old gastrostomy site. And then using a hemostat a tract in the abdominal wall was created. And then a hemostat was placed through this tract towards the skin level. The 14-Congolese DOMINIK tube was placed through the abdominal wall. A 3- 0 GI silk sutures used to place a pursestring of the stomach. An enterotomy is made in the center of the pursestring suture. And then the feeding tubes placed and stomach. The pursestring was secured. The balloon was inflated. And then the stomach was tacked to the abdominal wall in 4 quadrants using 3-0 GI silk suture. The fascia was closed with looped #1 PDS suture. The incisional hernias repaired with fascial closure. Skin was closed shari. The DOMINIK tube was secured to the skin using 2-0 nylon suture. Patient top procedure well and was sent to recovery room stable condition.
[2018-09-27] MEDS: FUROSEMIDE 10 MG/ML 2 ML VIAL IV SCH ×2 (14:09→19:56)
[2018-09-27 17:41] LABS: Glucose,Whole Blood 143 mg/dL (75-99)
[2018-09-27] MEDS: FAT EMULSION 20% 250 ML in EMPTY BAG 1 BAG IV SCH (18:52)
[2018-09-27 23:56] LABS: Glucose,Whole Blood 132 mg/dL (75-99)
[2018-09-28] MEDS: INSULIN ASPART (NovoLOG) 100 UNIT/ML VIAL SQ SCH ×4 (00:02→18:07)
--- NOTE | 2018-09-28 00:28 | PN ---
PROGRESS NOTE DATE OF SERVICE: 09/27/2018. REASON FOR FOLLOWUP: 1. Pseudomonas urinary tract infection. 2. Aspiration pneumonia. INTERVAL HISTORY: The patient is currently afebrile. The patient has been breathing comfortably. Hemodynamically stable. No nausea, vomiting has been reported or any diarrhea. PHYSICAL EXAMINATION: Blood pressure 149/87 with a pulse of 98, temperature is 97.7. He is 99% on 2 L nasal cannula. General description is an elderly male lying in bed in no distress. Respiratory system: Unlabored breathing. Clear to auscultation anteriorly. Heart S1, S2. Regular rate and rhythm. Abdomen soft, no tenderness. LABS: Hemoglobin 11.6, white count 3.2, BUN of 18, creatinine 0.51. DIAGNOSTIC IMPRESSION AND PLAN: Patient admitted to the hospital with pseudomonas urinary tract infection, with concern for left lower lobe pneumonia. Subsequently has right lower lobe, concern for recurrent aspiration. The patient is status post gastrostomy tube placement today and repair of incisional hernia. The patient has been maintained on meropenem to continue for now in view of his multiple antibiotic allergies. Continue supportive care. MMODL / IJN: [id number] /
--- NOTE | 2018-09-28 00:49 | PN ---
PROGRESS NOTE DATE OF SERVICE: 09/27/2018. PRESENTING COMPLAINT: Tired. INTERVAL HISTORY: The patient remains in the ICU, has chronic quadriplegia and suprapubic catheter, baseline function in right upper extremity and dumping incontinence. Patient admitted with sepsis, pneumonia, UTI, Coumadin toxicity status post bronchoscopy with mucous plugs removed. The patient did go down and have a PEG tube placed today. More awake, following commands, not really verbalizing, on nasal cannula. The patient remains in sinus rhythm, on IV Cardizem drip. REVIEW OF SYSTEMS: Cannot be done, patient barely talking. CURRENT MEDICATIONS: Reviewed, that include DuoNeb, IV Cardizem drip, subcu Lovenox, TPN, lipids, IV meropenem. PHYSICAL EXAMINATION: Temperature 97.7, pulse 98, respirations 20, blood pressure 140/87, pulse ox 99% on 3 L. GENERAL APPEARANCE: Sitting up in bed, awake, does follow commands. EYES: Pupils equal. Conjunctivae normal. NECK: JVD unable to assess. Mass not palpable. Respiratory effort increased. LUNGS: Decreased breath sounds. CARDIOVASCULAR: 1st and 2nd sounds normal. No edema. ABDOMEN: Soft, nontender. PEG tube in place. Suprapubic catheter in place. NEUROLOGIC: Baseline movement in the right upper extremity. INVESTIGATIONS: Potassium 3.8, BUN 18, creatinine 0.51. ASSESSMENT: 1. Bilateral multilobar aspiration pneumonia, status post bronchoscopy, mucous plug was removed. 2. Acute hypoxic respiratory failure, requiring high-flow oxygen, now down to nasal cannula. 3. Essential hypertension. 4. Chronic quadriplegia with residual function of function right upper extremity at baseline. 5. Chronic neurogenic bladder with chronic suprapubic catheter. 6. Acute Coumadin toxicity, reversed with vitamin K. 7. Acute urinary tract infection with suprapubic catheter and cystitis. Cultures positive for Pseudomonas, Enterococcus faecalis. 8. Acute metabolic encephalopathy from above with significant improvement. 9. Peripheral neuropathy. 10.FULL STATUS, FULL CODE. 11.Paroxysmal atrial fibrillation currently in sinus rhythm. The patient normally takes Coumadin, currently on Lovenox. PLAN: Tube feeding and medications resumed when okay with Dr. Christian. The patient's Lovenox can be resumed when okay with Dr. Christian. Speech therapy is following the patient. MMODL / IJN: [id number] /
[2018-09-28] MEDS: DILTIAZEM 125 MG in SODIUM CHLORIDE 0.9% 100 ML IV SCH ×2 (02:34→10:57)
[2018-09-28] MEDS: DEXTROSE 5%-0.9% NACL 1,000 ML IV SCH (05:26)
[2018-09-28 06:02] LABS: HCT 22.1 % (39.0-53.0); HGB 7.2 gm/dL (13.0-17.5); Hypochromasia Slight; MCH 33.4 pg (25.0-35.0); MCHC 32.8 g/dL (31.0-37.0); MCV 101.8 fL (80.0-100.0); Macrocytosis Slight; Mean Platelet Volume 8.3; Platelet Count 232 k/uL (150-450); RBC 2.17 m/uL (4.30-5.90); WBC 5.3 k/uL (3.8-10.6)
[2018-09-28 06:18] LABS: Anion Gap 0 mmol/L; Blood Urea Nitrogen 22 mg/dL (9-20); Calcium 7.5 mg/dL (8.4-10.2); Carbon Dioxide 33 mmol/L (22-30); Chloride 107 mmol/L (98-107); Glucose 159 mg/dL (74-99); Magnesium 1.8 mg/dL (1.6-2.3); Phosphorus 2.2 mg/dL (2.5-4.5); Potassium 3.6 mmol/L (3.5-5.1); Sodium 140 mmol/L (137-145)
[2018-09-28 06:21] LABS: Glucose,Whole Blood 122 mg/dL (75-99)
[2018-09-28] MEDS: POTASSIUM CHLORIDE 10 MEQ in WATER FOR INJECTION 1 100ML.BAG IVPB SCH ×2 (06:39→10:55)
[2018-09-28] MEDS: IPRATROPIUM-ALBUTEROL 3 ML NEB INHALATION SCH ×4 (07:34→20:26)
--- NOTE | 2018-09-28 08:18 | XR ---
EXAMINATION TYPE: XR chest 1V portable DATE OF EXAM: 09/28/2018 COMPARISON: 09/25/2018 HISTORY: Pneumonia. Follow-up exam. TECHNIQUE: Single frontal view of the chest is obtained. FINDINGS: There is a persistent right upper lobe reticular opacity with more nodular confluence late rally. Linear left basilar airspace disease has continued to coalesce. Blunting of the costophrenic a ngles remains with suboptimal visualization of the left hemidiaphragm. The patient is rotated shiftin g the mediastinum to the right. Cardiomediastinal silhouette appears mildly enlarged. Generalized oss eous demineralization is seen. Patient's chin obscures the lung apices although no sizable pneumothor ax is detected. IMPRESSION: Continued right upper lobe interstitial pneumonia with more nodular coalescence developi ng the interim. Increasing left basilar airspace disease is linear and likely atelectasis. Persistent trace pleural effusions.
[2018-09-28] MEDS: FUROSEMIDE 10 MG/ML 2 ML VIAL IV SCH ×2 (09:00→19:45)
[2018-09-28] MEDS: LEVOTHYROXINE IVP 100 MCG/5 ML VIAL IV SCH (09:00)
[2018-09-28] MEDS: MEROPENEM 1 GM in SODIUM CHLORIDE 0.9% 100 ML IVPB SCH ×3 (09:01→23:05)
[2018-09-28] MEDS: PANTOPRAZOLE 40 MG/10 ML VIAL IVP SCH (09:01)
[2018-09-28] MEDS: ENOXAPARIN 80 MG/0.8 ML SYRINGE SQ SCH ×2 (09:02→09:05)
[2018-09-28] MEDS: CHOLECALCIFEROL 400 UNIT TAB PO SCH (09:02)
[2018-09-28] MEDS: guaiFENesin 600 MG TABLET.ER PO SCH ×2 (09:02→19:22)
[2018-09-28] MEDS: MULTIVITAMINS, THERA 1 EACH TAB PO SCH (09:02)
--- NOTE | 2018-09-28 09:42 | P.PN ---
Subjective Progress Note Date: 09/28/18 CHIEF COMPLAINT: PEG tube placement HISTORY OF PRESENT ILLNESS: Patient is s/p open gastrostomy tube and repair of incisional hernia. The patient is resting comfortably. Patient able to nod yes or no to questions. He denies abdominal pain. Denies nausea or vomiting. TPN is infusing. PHYSICAL EXAM: VITAL SIGNS: Reviewed. GENERAL: Well-developed in no acute distress. HEENT: No sclera icterus. Extraocular movements grossly intact. Moist buccal mucosa. Head is atraumatic, normocephalic. ABDOMEN: Soft. Nondistended. Nontender. Gastrostomy tube intact without drainage. Midline incision with dressing. Small amount of old bloody drainage. NEUROLOGIC: Nonverbal. Patient able to communicate by nodding his head yes or no. Quadriplegic. ASSESSMENT: 1. Malnutrition, patient failed swallow screen, s/p unsuccessful attempts of Dobbhoff insertion 2. Aborted upper endoscopy for PEG tube placement, unable to intubate esophagus 3. S/P open gastrostomy tube and repair of incisional hernia, POD #1 PLAN: 1. Continue TPN 2. Patient may begin tube feeding tomorrow via gastrostomy tube per dietary recommendations Nurse practitioner note has been reviewed by physician. Signing provider agrees with the documented findings, assessment, and plan of care. Objective - Vital Signs Vital signs: Vital Signs Temp 97.7 F 09/28/18 07:00 Pulse 105 H 09/28/18 07:49 Resp 16 09/28/18 07:00 BP 149/76 09/28/18 07:00 Pulse Ox 97 09/28/18 07:00 Intake & Output 09/27/18 09/28/18 09/28/18 18:59 06:59 18:59 Intake Total 6368.384 2320.8 65 Output Total 2185 2600 100 Balance -815.667 -1369.2 -35 Weight 74 kg 73.3 kg Intake: IV 1130 1120 65 Dextrose 5%-0.9% NaCl 1, 100 240 0 000 ml @ 20 mls/hr IV . Q24H [facility] Rx#:[id number] Meropenem 1 gm In Sodium 200 100 Chloride 0.9% 100 ml @ 200 mls/hr IVPB Q8HR [facility] Rx#:[id number] Potassium Phosphate 15 780 780 65 mmol Sodium Acetate 30 meq Magnesium Sulfate gm 1 gm Calcium Gluconate 1 gm In Amino Acid 5%-D15w 1,000 ml @ 65 mls/hr IV . BY DURATION [facility] Rx#: [id number] Intake, IV Titration 239.333 110.8 Amount Diltiazem 125 mg In 39.333 90 Sodium Chloride 0.9% 100 ml @ 10 MG/HR 10 mls/hr IV .[id number] [facility] Rx#: [id number] Fat Emulsion 20% 250 ml 20.8 In Empty Bag 1 bag @ 21 mls/hr IV [id number] [facility] Rx#:[id number] Potassium Phosphate 10 100 mmol In Sodium Chloride 0 .9% 100 ml @ 50 mls/hr IV Q2H [facility] Rx#:[id number] Potassium Phosphate 15 100 mmol Mvi, Adult No.4 with Vit K 10 ml Trace (Conc- 1Ml/Dose) 1 ml Sodium Acetate 30 meq Magnesium Sulfate gm 1 gm Calcium Gluconate 1 gm In Amino Acid 5%-D15w 1,000 ml @ 65 mls/hr IV .BY DURATION [facility] Rx#:[id number] Output: Urine 2175 2600 100 Estimated Blood Loss 10 Other: Voiding Method Indwelling Catheter Indwelling Catheter - Labs CBC & Chem 7: 09/28/18 05:40 09/28/18 05:40 Labs: Abnormal Lab Results - Last 24 Hours (Table) 09/27/18 09/27/18 09/27/18 Range/Units 12:04 17:40 23:54 RBC (4.30-5.90) m/uL Hgb (13.0-17.5) gm/dL Hct (39.0-53.0) % MCV (80.0-100.0) fL Carbon Dioxide (22-30) mmol/L BUN (9-20) mg/dL Creatinine (0.66-1.25) mg/dL Glucose (74-99) mg/dL POC Glucose (mg/dL) 136 H 143 H 132 H (75-99) mg/dL Calcium (8.4-10.2) mg/dL Phosphorus (2.5-4.5) mg/dL 09/28/18 09/28/18 09/28/18 Range/Units 05:40 05:40 06:19 RBC 2.17 L (4.30-5.90) m/uL Hgb 7.2 L (13.0-17.5) gm/dL Hct 22.1 L (39.0-53.0) % MCV 101.8 H (80.0-100.0) fL Carbon Dioxide 33 H (22-30) mmol/L BUN 22 H (9-20) mg/dL Creatinine 0.61 L (0.66-1.25) mg/dL Glucose 159 H (74-99) mg/dL POC Glucose (mg/dL) 122 H (75-99) mg/dL Calcium 7.5 L (8.4-10.2) mg/dL Phosphorus 2.2 L (2.5-4.5) mg/dL
[2018-09-28] MEDS ORDERED: POTASSIUM PHOSPHATE 10 MMOL in SODIUM CHLORIDE 0.9% 250 ML IV ONE (10:30)
[2018-09-28 11:52] LABS: Glucose,Whole Blood 123 mg/dL (75-99)
--- NOTE | 2018-09-28 15:26 | P.PN ---
Subjective Progress Note Date: 09/28/18 Principal diagnosis: Acute pseudomonas aeruginosa urinary tract infection and multilobar pneumonia This is an 82-year-old white male, known history of quadriplegia, admitted on , main admitting diagnosis was sepsis, acute hypoxic respiratory failure, aspiration pneumonia, Pseudomonas urinary tract infection, electrolytes imbalance, coagulopathy and thrombocytopenia. His blood cultures have been negative since admission, his urine cultures were positive for pseudomonas aeruginosa sputum cultures positive for Rosalie albicans and E. coli. Patient was seen by Dr. Rivas on consultation, and he was treated with Merrem, he underwent a bronchoscopy and bronchoalveolar lavage, and it was eventually recommended that the patient needs a PEG tube placement. Dr. lópez saw the patient on consultation, and he underwent a trial of PEG tube placement, however numerous attempts were made and esophagus could not be intubated. Then it was the recommendation of undergoing surgical approach for a PEG tube placement and this would be done today by Dr. Christian. I saw the patient today in the ICU, he looks very comfortable, he is on 2 L nasal cannula, in no distress, he seems quite edematous and I believe that's probably because of his poor nutritional status, and hypoalbuminemia. Patient is on TPN for nutritional support. He is also on antibiotics for UTI and pneumonia. Labs were reviewed had a relatively normal electrolytes, normal renal profile, hemoglobin is 7.6. WBC count is 3.2. His last chest x-ray from 09/25 showed cardiomegaly and small pleural effusions, and bilateral airspace disease. Patient was reevaluated today on 09/28/2018, patient remains in the ICU, he underwent open gastrostomy tube placement yesterday by Dr. Christian. The procedure went fine, patient remains in the ICU, and the tube is yet to be used today. Patient is feeling fine, does not seem to be in any distress. He still on antibiotics for multilobar pneumonia and he is also on antibiotics for pseudomonal Urinary tract infection. Patient had normal labs including basic metabolic profile. His hemoglobin remains low at 7.2, it was 8.32 days ago, and it was 7.6 yesterday. Patient is comfortable, he is not in any distress, and he is hemodynamically stable. Objective - Vital Signs Vital signs: Vital Signs Temp 97.6 F 09/28/18 12:00 Pulse 97 09/28/18 12:11 Resp 20 09/28/18 12:00 BP 107/71 09/28/18 12:00 Pulse Ox 96 09/28/18 12:00 Intake & Output 09/27/18 09/28/18 09/28/18 18:59 06:59 18:59 Intake Total 8580.384 1997.8 1131.917 Output Total 2185 2600 1260 Balance -815.667 -1369.2 -128.083 Weight 74 kg 73.3 kg 73.3 kg Intake: IV 1130 1120 1090 Dextrose 5%-0.9% NaCl 1, 100 240 120 000 ml @ 20 mls/hr IV . Q24H [facility] Rx#:[id number] Meropenem 1 gm In Sodium 200 100 100 Chloride 0.9% 100 ml @ 200 mls/hr IVPB Q8HR [facility] Rx#:[id number] Potassium Chloride 10 meq 100 In Water For Injection 1 100ml.bag @ 100 mls/hr IVPB Q1HR [facility] Rx#: [id number] Potassium Phosphate 10 250 mmol In Sodium Chloride 0 .9% 250 ml @ 125 mls/hr IV ONCE ONE Rx#:[id number] Potassium Phosphate 15 780 780 520 mmol Sodium Acetate 30 meq Magnesium Sulfate gm 1 gm Calcium Gluconate 1 gm In Amino Acid 5%-D15w 1,000 ml @ 65 mls/hr IV . BY DURATION [facility] Rx#: [id number] Intake, IV Titration 239.333 110.8 41.917 Amount Diltiazem 125 mg In 39.333 90 41.917 Sodium Chloride 0.9% 100 ml @ 10 MG/HR 10 mls/hr IV .[id number] [facility] Rx#: [id number] Fat Emulsion 20% 250 ml 20.8 In Empty Bag 1 bag @ 21 mls/hr IV [id number] [facility] Rx#:[id number] Potassium Phosphate 10 100 mmol In Sodium Chloride 0 .9% 100 ml @ 50 mls/hr IV Q2H [facility] Rx#:[id number] Potassium Phosphate 15 100 mmol Mvi, Adult No.4 with Vit K 10 ml Trace (Conc- 1Ml/Dose) 1 ml Sodium Acetate 30 meq Magnesium Sulfate gm 1 gm Calcium Gluconate 1 gm In Amino Acid 5%-D15w 1,000 ml @ 65 mls/hr IV .BY DURATION [facility] Rx#:[id number] Output: Urine 2175 2600 1260 Estimated Blood Loss 10 Other: Voiding Method Indwelling Catheter Indwelling Catheter Indwelling Catheter - Exam Physical Exam: Revealed an 82-year-old white male in no distress, paraplegic. On 3 L nasal cannula. Head: Atraumatic, normocephalic, dry mucous membranes noted. HEENT:[Neck is supple.] [No neck masses.] [No thyromegaly.] [No JVD.] PERRLA, EOMI, no icterus, dry mucous membranes noted. Chest: [Crackles and rhonchi at the bases, symmetrical chest expansion, no chest wall tenderness.] Cardiac Exam: [Irregular irregular rhythm Normal S1 and S2, no S3 gallop, no murmur.] Abdomen: [Soft, nontender, no megaly, no rebound, no guarding, normal bowel sounds.] Edematous abdominal wall is noted. PEG tube site is intact and clean. Extremities: [No clubbing, 2+ bipedal edema, no cyanosis. No calf tenderness. Neurological Exam: Paraplegic, otherwise [No focal neurologic deficit.] Patient is nonverbal, communicates by nodding his head. Flexion contractures and atrophy of lower extremities noted. Skin: No rashes. Lymphatics: No lymphadenopathy. - Labs CBC & Chem 7: 09/28/18 05:40 09/28/18 05:40 Labs: Abnormal Lab Results - Last 24 Hours (Table) 09/27/18 09/27/18 09/28/18 Range/Units 17:40 23:54 05:40 RBC (4.30-5.90) m/uL Hgb (13.0-17.5) gm/dL Hct (39.0-53.0) % MCV (80.0-100.0) fL Carbon Dioxide 33 H (22-30) mmol/L BUN 22 H (9-20) mg/dL Creatinine 0.61 L (0.66-1.25) mg/dL Glucose 159 H (74-99) mg/dL POC Glucose (mg/dL) 143 H 132 H (75-99) mg/dL Calcium 7.5 L (8.4-10.2) mg/dL Phosphorus 2.2 L (2.5-4.5) mg/dL 09/28/18 09/28/18 09/28/18 Range/Units 05:40 06:19 11:41 RBC 2.17 L (4.30-5.90) m/uL Hgb 7.2 L (13.0-17.5) gm/dL Hct 22.1 L (39.0-53.0) % MCV 101.8 H (80.0-100.0) fL Carbon Dioxide (22-30) mmol/L BUN (9-20) mg/dL Creatinine (0.66-1.25) mg/dL Glucose (74-99) mg/dL POC Glucose (mg/dL) 122 H 123 H (75-99) mg/dL Calcium (8.4-10.2) mg/dL Phosphorus (2.5-4.5) mg/dL Assessment and Plan Assessment: Impression: 1 acute hypoxic respiratory failure secondary to pneumonia, most likely aspiration pneumonia unless for otherwise. His sputum cultures have been positive for E. coli and for Rosalie albicans. 2 acute urinary tract infection secondary to pseudomonas aeruginosa 3 hyponatremia on presentation, resolved since admission. 4 supra pubic catheter for recurrent urinary tract infection 5 quadriplegia secondary to previous cervical fracture 6 previous history of deep vein thrombosis maintained on parts counterman anticoagulation therapy 7 failed the swallow evaluation, patient is scheduled for PEG tube placement surgically today since previous attempts to do it under IV conscious sedation failed. 8 paroxysmal atrial fibrillation, 9 Coumadin toxicity on admission, resolved 10 history of hypertension 11 history of hypothyroidism 12 status post open gastrostomy tube placement and repair of incisional hernia postoperative day #1 Recommendation: Continue present supportive care measures. We'll likely switch his TPN to enteral feeding via PEG tube once we have a clearance from surgery. In the meantime continue his antibiotics, continue nutritional support, continue diuretics, bronchodilators, continue GI and DVT prophylaxis, monitor his hemoglobin, and if it drops any further may consider a unit of packed RBCs. Patient will remain in the ICU for today, and we'll address possibly transfer out of the ICU in the next 24 hours if he remains stable. Long-term prognosis considering his comorbidities remained poor. Time with Patient: Less than 30
--- NOTE | 2018-09-28 16:32 | PN ---
PROGRESS NOTE This is a gentleman with quadriplegia, previous cervical spine injury, who came into the hospital with multiple comorbid conditions. He also has atrial fibrillation, and I was involved in this regard. He has been on Lovenox subcutaneously because we could not give him oral agents. He had a PEG tube yesterday, but he cannot start oral medications yet. He remains in atrial fibrillation. Rate control is decent. We will continue the current dose of Cardizem, but once patient is able to take oral medications I will place him on metoprolol for rate control and Eliquis 2.5 mg b.i.d. Vitals are stable. S1, S2 heard normally with irregular rate and rhythm, short systolic murmur. Lungs reveal diminished air entry. Abdomen is distended. Lower extremities reveal diminished pulses. Central nervous system assessment was not performed. Plan is to initiate beta ethel and Eliquis once he can use the PEG tube. MMODL / IJN: [id number] /
[2018-09-28 17:52] LABS: Glucose,Whole Blood 120 mg/dL (75-99)
[2018-09-28] MEDS: METOPROLOL TARTRATE 50 MG TAB PO SCH (19:35)
[2018-09-28] MEDS: APIXABAN 2.5 MG TABLET PO SCH (19:36)
[2018-09-28 19:53] LABS: Glucose,Whole Blood 127 mg/dL (75-99)
--- NOTE | 2018-09-28 22:53 | PN ---
PROGRESS NOTE DATE OF SERVICE: 09/28/2018 REASON FOR FOLLOWUP: 1. Pseudomonas urinary tract infection. 2. Aspiration pneumonia. INTERVAL HISTORY: The patient is currently afebrile. He has been breathing comfortably. He is slightly more awake, alert. No chest pain. No nausea, vomiting or any diarrhea reported. PHYSICAL EXAMINATION: Blood pressure is 122/66 with a pulse of 80, temperature 98. He is 96% on room air. General description is an elderly male lying in bed in no distress. RESPIRATORY SYSTEM: Unlabored breathing with decreased breath sounds at the base. HEART: S1, S2. Regular rate and rhythm. ABDOMEN: Soft. No tenderness. LABS: Hemoglobin 7.2, white count 5.3 with a BUN of 22, creatinine 0.61. DIAGNOSTIC IMPRESSION AND PLAN: Patient with Pseudomonas aeruginosa urinary tract infection and aspiration pneumonia. Patient is currently covered with meropenem because of multiple antibiotic allergies. He has been tolerating it so far. He is afebrile. White count normal. To continue to finish a 2-week course of therapy. Continue with supportive care. MMODL / IJN: [id number] / MTDD
[2018-09-28 23:38] LABS: Glucose,Whole Blood 111 mg/dL (75-99)
--- NOTE | 2018-09-29 00:59 | PN ---
PROGRESS NOTE DATE OF SERVICE: 09/28/2018. PRESENTING COMPLAINT: Tired. INTERVAL HISTORY: Patient is in the ICU, has chronic quadriplegia and suprapubic catheter. Baseline function in the right upper extremity and double incontinence. Patient admitted with sepsis, pneumonia, UTI, Coumadin toxicity, status post bronchoscopy with mucous plugs removed. The patient has got a PEG tube in place, cannot be used as such. The patient with rather dry oral mucosa. Speech therapy is following. The patient does follow commands. Voice is rather coarse because of dryness in the mouth. The patient has been on Cardizem drip. Remains in sinus rhythm. REVIEW OF SYSTEMS: Cannot be done as patient is barely talking. CURRENT MEDICATIONS: Reviewed, that include DuoNeb, Eliquis, TPN, lipids, IV meropenem. PHYSICAL EXAMINATION: Temperature 97.9, pulse 90, respirations 17, blood pressure 130/80, pulse ox 98% on 2 L. GENERAL APPEARANCE: Lying in bed, awake. Does follow commands with nodding head at attempting to speak. EYES: Pupils equal. Conjunctivae normal. NECK: JVD unable to assess. Mass not palpable. Respiratory effort increased. LUNGS: Diminished breath sounds. CARDIOVASCULAR: 1st and 2nd heart sounds. No edema. ABDOMEN: Soft, nontender. PEG tube in place. Suprapubic catheter in place. NEUROLOGICAL: Baseline wound right upper extremity. INVESTIGATIONS: White count 5.3, hemoglobin 7.2, potassium 3.6, BUN 22, creatinine 0.61. Telemetry shows sinus rhythm. ASSESSMENT: 1. Bilateral multilobar and aspiration pneumonia status post bronchoscopy, mucous plugs removed. 2. Acute hypoxic respiratory failure, requiring high-flow oxygen now down to nasal cannula. 3. Essential hypertension. 4. Chronic quadriplegia with residual function of the right upper extremity at the baseline. 5. Chronic neurogenic bladder with chronic suprapubic catheter. 6. Acute Coumadin toxicity, reversed with vitamin K. 7. Acute urinary tract infection with suprapubic catheter and cystitis. Cultures positive for Pseudomonas and Enterococcus faecalis. 8. Acute metabolic encephalopathy from above with significant improvement. 9. Peripheral neuropathy. 10.CODE STATUS: FULL CODE. 11.Paroxysmal atrial fibrillation currently in sinus rhythm. PLAN: Continue current medication and treatment plan. Did speak to the nurse to check with Dr. Christian when will start medication and tube feedings. Speech therapy to continue. Did speak to nurse to an increased oral tolerating. I am hopeful that the patient should be able to start swallowing once the mouth is less dry. MMHEIDI / JEROMY: [id number] /
[2018-09-29] MEDS: INSULIN ASPART (NovoLOG) 100 UNIT/ML VIAL SQ SCH ×5 (02:32→23:57)
[2018-09-29 04:53] LABS: HCT 21.5 % (39.0-53.0); HGB 7.1 gm/dL (13.0-17.5); Hypochromasia Slight; MCH 33.3 pg (25.0-35.0); MCHC 32.8 g/dL (31.0-37.0); MCV 101.3 fL (80.0-100.0); Macrocytosis Slight; Platelet Count 216 k/uL (150-450); RBC 2.12 m/uL (4.30-5.90); RDW 15.4 % (11.5-15.5); WBC 4.3 k/uL (3.8-10.6)
[2018-09-29 05:12] LABS: Anion Gap 1 mmol/L; Blood Urea Nitrogen 27 mg/dL (9-20); Calcium 7.9 mg/dL (8.4-10.2); Carbon Dioxide 32 mmol/L (22-30); Chloride 105 mmol/L (98-107); Glucose 110 mg/dL (74-99); Magnesium 1.9 mg/dL (1.6-2.3); Phosphorus 2.5 mg/dL (2.5-4.5); Potassium 3.5 mmol/L (3.5-5.1); Sodium 138 mmol/L (137-145)
[2018-09-29] MEDS ORDERED: Potassium Replacement Protocol 1 EACH MISC MISCELLANE PRN (05:41)
[2018-09-29] MEDS: POTASSIUM CHLORIDE ER 20 MEQ TAB.ER PO SCH ×2 (05:47→06:41)
[2018-09-29 05:58] LABS: Glucose,Whole Blood 119 mg/dL (75-99)
[2018-09-29] MEDS: MAGNESIUM SULFATE-D5W PMX 1 GM in DEXTROSE/WATER 1 100ML.BAG IVPB SCH ×2 (05:59→07:58)
[2018-09-29] MEDS ORDERED: POTASSIUM BICARBONATE/CIT AC 20 MEQ TABLET.EFF NG-TUBE SCH (06:00)
[2018-09-29] MEDS: IPRATROPIUM-ALBUTEROL 3 ML NEB INHALATION SCH ×4 (06:04→20:55)
[2018-09-29] MEDS: LEVOTHYROXINE IVP 100 MCG/5 ML VIAL IV SCH (10:04)
[2018-09-29] MEDS: MEROPENEM 1 GM in SODIUM CHLORIDE 0.9% 100 ML IVPB SCH ×3 (10:04→23:31)
[2018-09-29] MEDS: FUROSEMIDE 10 MG/ML 2 ML VIAL IV SCH ×2 (10:04→21:08)
[2018-09-29] MEDS: PANTOPRAZOLE 40 MG/10 ML VIAL IVP SCH (10:04)
[2018-09-29] MEDS: DEXTROSE 5%-0.9% NACL 1,000 ML IV SCH (10:21)
[2018-09-29] MEDS: METOPROLOL TARTRATE 50 MG TAB PO SCH (10:22)
[2018-09-29] MEDS: MULTIVITAMINS, THERA 1 EACH TAB PO SCH (10:22)
[2018-09-29] MEDS: APIXABAN 2.5 MG TABLET PO SCH (10:22)
[2018-09-29] MEDS: guaiFENesin 600 MG TABLET.ER PO SCH ×2 (10:22→19:44)
[2018-09-29] MEDS: CHOLECALCIFEROL 400 UNIT TAB PO SCH (10:22)
[2018-09-29] MEDS: DILTIAZEM 125 MG in SODIUM CHLORIDE 0.9% 100 ML IV SCH (10:55)
[2018-09-29] MEDS: ENOXAPARIN 80 MG/0.8 ML SYRINGE SQ SCH ×2 (10:56→19:53)
--- NOTE | 2018-09-29 11:12 | PN ---
PROGRESS NOTE Mr. Hoang is in an atrial fib controlled rate. Yesterday he received some oral medications in the form of Lopressor but the PEG tube is now clogged. They were trying to unclog it. However, he is hemodynamically stable. Decent urine output. S1, S2 heard normally, irregular rate and rhythm noted. Lungs reveal diminished air entry. Abdomen and lower extremities exam is unchanged. From a cardiac standpoint, I would resume IV Cardizem if we cannot give him oral medications and also Lovenox subcu. However, if he can continue oral medications, would switch him to Lopressor as already ordered and also Eliquis 2.5 mg b.i.d. On physical exam, there are no new significant findings. The patient seems to be reasonably stable hemodynamically. MMODL / IJN: [id number] /
--- NOTE | 2018-09-29 11:23 | P.PN ---
Subjective Progress Note Date: 09/29/18 Principal diagnosis: Acute pseudomonas aeruginosa urinary tract infection and multilobar pneumonia This is an 82-year-old white male, known history of quadriplegia, admitted on , main admitting diagnosis was sepsis, acute hypoxic respiratory failure, aspiration pneumonia, Pseudomonas urinary tract infection, electrolytes imbalance, coagulopathy and thrombocytopenia. His blood cultures have been negative since admission, his urine cultures were positive for pseudomonas aeruginosa sputum cultures positive for Rosalie albicans and E. coli. Patient was seen by Dr. Rivas on consultation, and he was treated with Merrem, he underwent a bronchoscopy and bronchoalveolar lavage, and it was eventually recommended that the patient needs a PEG tube placement. Dr. lópez saw the patient on consultation, and he underwent a trial of PEG tube placement, however numerous attempts were made and esophagus could not be intubated. Then it was the recommendation of undergoing surgical approach for a PEG tube placement and this would be done today by Dr. Christian. I saw the patient today in the ICU, he looks very comfortable, he is on 2 L nasal cannula, in no distress, he seems quite edematous and I believe that's probably because of his poor nutritional status, and hypoalbuminemia. Patient is on TPN for nutritional support. He is also on antibiotics for UTI and pneumonia. Labs were reviewed had a relatively normal electrolytes, normal renal profile, hemoglobin is 7.6. WBC count is 3.2. His last chest x-ray from 09/25 showed cardiomegaly and small pleural effusions, and bilateral airspace disease. Patient was reevaluated today on 09/28/2018, patient remains in the ICU, he underwent open gastrostomy tube placement yesterday by Dr. Christian. The procedure went fine, patient remains in the ICU, and the tube is yet to be used today. Patient is feeling fine, does not seem to be in any distress. He still on antibiotics for multilobar pneumonia and he is also on antibiotics for pseudomonal Urinary tract infection. Patient had normal labs including basic metabolic profile. His hemoglobin remains low at 7.2, it was 8.32 days ago, and it was 7.6 yesterday. Patient is comfortable, he is not in any distress, and he is hemodynamically stable. Reevaluated today on 09/29/2018, remains in the ICU, having issues with the patency of the PEG tube, surgery is to address that issue today. Could not be used yet for feeding, hopefully the issue will be fixed by later today then we can start enteral feeding on this patient, and eventually discontinue TPN. Clinically however the patient is about the same, remains on TPN, remains on antibiotics for his multilobar pneumonia, and remains on antibiotics for his pseudomonal urinary tract infection. Hemoglobin is holding at 7.1. Elective lites are normal renal profile is normal. No chest x-ray was done today. Chest x-ray from yesterday was reviewed. Objective - Vital Signs Vital signs: Vital Signs Temp 97.7 F 09/29/18 04:00 Pulse 88 09/29/18 07:00 Resp 18 09/29/18 07:00 BP 136/77 09/29/18 07:00 Pulse Ox 97 09/29/18 07:00 Intake & Output 09/28/18 09/29/18 09/29/18 18:59 06:59 18:59 Intake Total 2594.917 1015 230 Output Total 1540 1650 150 Balance 1054.917 -635 80 Weight 73.3 kg 72.1 kg Intake: IV 1510 1015 130 Dextrose 5%-0.9% NaCl 1, 180 200 0 000 ml @ 20 mls/hr IV . Q24H [facility] Rx#:[id number] Meropenem 1 gm In Sodium 200 100 Chloride 0.9% 100 ml @ 200 mls/hr IVPB Q8HR [facility] Rx#:[id number] Potassium Chloride 10 meq 100 In Water For Injection 1 100ml.bag @ 100 mls/hr IVPB Q1HR [facility] Rx#: [id number] Potassium Phosphate 10 250 mmol In Sodium Chloride 0 .9% 250 ml @ 125 mls/hr IV ONCE ONE Rx#:[id number] Potassium Phosphate 15 780 715 130 mmol Sodium Acetate 30 meq Magnesium Sulfate gm 1 gm Calcium Gluconate 1 gm In Amino Acid 5%-D15w 1,000 ml @ 65 mls/hr IV . BY DURATION [facility] Rx#: [id number] Intake, IV Titration 1084.917 100 Amount Diltiazem 125 mg In 41.917 Sodium Chloride 0.9% 100 ml @ 10 MG/HR 10 mls/hr IV .[id number] [facility] Rx#: [id number] Magnesium Sulfate-D5w Pmx 100 1 gm In Dextrose/Water 1 100ml.bag @ 100 mls/hr IVPB Q1H [facility] Rx#: [id number] Potassium Phosphate 15 1043 mmol Mvi, Adult No.4 with Vit K 10 ml Trace (Conc- 1Ml/Dose) 1 ml Sodium Acetate 30 meq Magnesium Sulfate gm 1 gm Calcium Gluconate 1 gm In Amino Acid 5%-D15w 1,000 ml @ 65 mls/hr IV .BY DURATION [facility] Rx#:[id number] Output: Urine 1540 1650 150 Other: Voiding Method Indwelling Catheter Indwelling Catheter - Exam Physical Exam: Revealed an 82-year-old white male in no distress, paraplegic. On 3 L nasal cannula. Head: Atraumatic, normocephalic, dry mucous membranes noted. HEENT:[Neck is supple.] [No neck masses.] [No thyromegaly.] [No JVD.] PERRLA, EOMI, no icterus, dry mucous membranes noted. Chest: [Crackles and rhonchi at the bases, symmetrical chest expansion, no chest wall tenderness.] Cardiac Exam: [Irregular irregular rhythm Normal S1 and S2, no S3 gallop, no murmur.] Abdomen: [Soft, nontender, no megaly, no rebound, no guarding, normal bowel sounds.] Edematous abdominal wall is noted. PEG tube site is intact and clean. Extremities: [No clubbing, 2+ bipedal edema, no cyanosis. No calf tenderness. Neurological Exam: Paraplegic, otherwise [No focal neurologic deficit.] Patient is nonverbal, communicates by nodding his head. Flexion contractures and atrophy of lower extremities noted. Skin: No rashes. Lymphatics: No lymphadenopathy. - Labs CBC & Chem 7: 09/29/18 04:40 09/29/18 04:40 Labs: Abnormal Lab Results - Last 24 Hours (Table) 09/28/18 09/28/18 09/28/18 Range/Units 11:41 17:50 19:50 RBC (4.30-5.90) m/uL Hgb (13.0-17.5) gm/dL Hct (39.0-53.0) % MCV (80.0-100.0) fL Carbon Dioxide (22-30) mmol/L BUN (9-20) mg/dL Glucose (74-99) mg/dL POC Glucose (mg/dL) 123 H 120 H 127 H (75-99) mg/dL Calcium (8.4-10.2) mg/dL 09/28/18 09/29/18 09/29/18 Range/Units 23:36 04:40 04:40 RBC 2.12 L (4.30-5.90) m/uL Hgb 7.1 L (13.0-17.5) gm/dL Hct 21.5 L (39.0-53.0) % MCV 101.3 H (80.0-100.0) fL Carbon Dioxide 32 H (22-30) mmol/L BUN 27 H (9-20) mg/dL Glucose 110 H (74-99) mg/dL POC Glucose (mg/dL) 111 H (75-99) mg/dL Calcium 7.9 L (8.4-10.2) mg/dL 09/29/18 Range/Units 05:57 RBC (4.30-5.90) m/uL Hgb (13.0-17.5) gm/dL Hct (39.0-53.0) % MCV (80.0-100.0) fL Carbon Dioxide (22-30) mmol/L BUN (9-20) mg/dL Glucose (74-99) mg/dL POC Glucose (mg/dL) 119 H (75-99) mg/dL Calcium (8.4-10.2) mg/dL Assessment and Plan Assessment: Impression: 1 acute hypoxic respiratory failure secondary to pneumonia, most likely aspiration pneumonia unless for otherwise. His sputum cultures have been positive for E. coli and for Rosalie albicans. 2 acute urinary tract infection secondary to pseudomonas aeruginosa 3 hyponatremia on presentation, resolved since admission. 4 supra pubic catheter for recurrent urinary tract infection 5 quadriplegia secondary to previous cervical fracture 6 previous history of deep vein thrombosis maintained on rodent exterminator anticoagulation therapy 7 failed the swallow evaluation, patient is scheduled for PEG tube placement surgically today since previous attempts to do it under IV conscious sedation failed. 8 paroxysmal atrial fibrillation, 9 Coumadin toxicity on admission, resolved 10 history of hypertension 11 history of hypothyroidism 12 status post open gastrostomy tube placement and repair of incisional hernia postoperative day #2, however the PEG tube seems to be nonfunctional at this point, and we will notify surgery about the tube, if fixed, will start enteral feeding via PEG tube, and eventually discontinue TPN. In the meantime continue antibiotics, nutritional support, diuretics, bronchodilators, GI and DVT prop hylaxis, no need for blood transfusion at this point. We'll continue to monitor the patient in the ICU for the next 24 hours. Over could even possibly consider transfer to a medical floor later today. Overall prognosis remains poor and guarded. Time with Patient: Less than 30
[2018-09-29 12:25] LABS: Glucose,Whole Blood 132 mg/dL (75-99)
[2018-09-29 12:42] LABS: Glucose,Whole Blood 125 mg/dL (75-99)
--- NOTE | 2018-09-29 14:26 | P.PN ---
Subjective Progress Note Date: 09/29/18 CHIEF COMPLAINT: PEG tube placement HISTORY OF PRESENT ILLNESS: Patient is s/p open gastrostomy tube and repair of incisional hernia. The patient is resting comfortably. Patient able to nod yes or no to questions. He denies abdominal pain. Denies nausea or vomiting. TPN is infusing. Patient was given K-Dur down the feeding tube this morning and tube is currently clogged. PHYSICAL EXAM: VITAL SIGNS: Reviewed. GENERAL: Well-developed in no acute distress. HEENT: No sclera icterus. Extraocular movements grossly intact. Moist buccal mucosa. Head is atraumatic, normocephalic. ABDOMEN: Soft. Nondistended. Nontender. Gastrostomy tube intact without drainage-nonfunctional due to blockage. Midline incision with dressing. NEUROLOGIC: Nonverbal. Patient able to communicate by nodding his head yes or no. Quadriplegic. ASSESSMENT: 1. Malnutrition, patient failed swallow screen, s/p unsuccessful attempts of Dobbhoff insertion 2. Aborted upper endoscopy for PEG tube placement, unable to intubate esophagus 3. S/P open gastrostomy tube and repair of incisional hernia PLAN: 1. Continue TPN 2. Multiple attempts were made during the day to unclog patients gastrostomy tube. Obstruction has cleared some as no longer able to visualize pill particles in the gastrostomy tube but still unable to flush it. Will continue to attempt to unclog tube. However if unsuccessful, patient will require surgery for new gastrostomy tube on Thursday Nurse practitioner note has been reviewed by physician. Signing provider agrees with the documented findings, assessment, and plan of care. Objective - Vital Signs Vital signs: Vital Signs Temp 97.7 F 09/29/18 04:00 Pulse 88 09/29/18 07:00 Resp 18 09/29/18 07:00 BP 136/77 09/29/18 07:00 Pulse Ox 97 09/29/18 07:00 Intake & Output 09/28/18 09/29/18 09/29/18 18:59 06:59 18:59 Intake Total 2594.917 1015 230 Output Total 1540 1650 150 Balance 1054.917 -635 80 Weight 73.3 kg 72.1 kg Intake: IV 1510 1015 130 Dextrose 5%-0.9% NaCl 1, 180 200 0 000 ml @ 20 mls/hr IV . Q24H [facility] Rx#:[id number] Meropenem 1 gm In Sodium 200 100 Chloride 0.9% 100 ml @ 200 mls/hr IVPB Q8HR [facility] Rx#:[id number] Potassium Chloride 10 meq 100 In Water For Injection 1 100ml.bag @ 100 mls/hr IVPB Q1HR [facility] Rx#: [id number] Potassium Phosphate 10 250 mmol In Sodium Chloride 0 .9% 250 ml @ 125 mls/hr IV ONCE ONE Rx#:[id number] Potassium Phosphate 15 780 715 130 mmol Sodium Acetate 30 meq Magnesium Sulfate gm 1 gm Calcium Gluconate 1 gm In Amino Acid 5%-D15w 1,000 ml @ 65 mls/hr IV . BY DURATION [facility] Rx#: [id number] Intake, IV Titration 1084.917 100 Amount Diltiazem 125 mg In 41.917 Sodium Chloride 0.9% 100 ml @ 10 MG/HR 10 mls/hr IV .[id number] [facility] Rx#: [id number] Magnesium Sulfate-D5w Pmx 100 1 gm In Dextrose/Water 1 100ml.bag @ 100 mls/hr IVPB Q1H [facility] Rx#: [id number] Potassium Phosphate 15 1043 mmol Mvi, Adult No.4 with Vit K 10 ml Trace (Conc- 1Ml/Dose) 1 ml Sodium Acetate 30 meq Magnesium Sulfate gm 1 gm Calcium Gluconate 1 gm In Amino Acid 5%-D15w 1,000 ml @ 65 mls/hr IV .BY DURATION [facility] Rx#:[id number] Output: Urine 1540 1650 150 Other: Voiding Method Indwelling Catheter Indwelling Catheter - Labs CBC & Chem 7: 09/29/18 04:40 09/29/18 04:40 Labs: Abnormal Lab Results - Last 24 Hours (Table) 09/28/18 09/28/18 09/28/18 Range/Units 17:50 19:50 23:36 RBC (4.30-5.90) m/uL Hgb (13.0-17.5) gm/dL Hct (39.0-53.0) % MCV (80.0-100.0) fL Carbon Dioxide (22-30) mmol/L BUN (9-20) mg/dL Glucose (74-99) mg/dL POC Glucose (mg/dL) 120 H 127 H 111 H (75-99) mg/dL Calcium (8.4-10.2) mg/dL 09/29/18 09/29/18 09/29/18 Range/Units 04:40 04:40 05:57 RBC 2.12 L (4.30-5.90) m/uL Hgb 7.1 L (13.0-17.5) gm/dL Hct 21.5 L (39.0-53.0) % MCV 101.3 H (80.0-100.0) fL Carbon Dioxide 32 H (22-30) mmol/L BUN 27 H (9-20) mg/dL Glucose 110 H (74-99) mg/dL POC Glucose (mg/dL) 119 H (75-99) mg/dL Calcium 7.9 L (8.4-10.2) mg/dL
[2018-09-29] MEDS ORDERED: LIPASE 5,000/PROTEASE 17,000/AMYLASE 24,000 PO STA ×3 (14:52→22:18)
[2018-09-29] MEDS ORDERED: SODIUM BICARBONATE TAB 650 MG TAB PO STA ×2 (14:53→16:27)
[2018-09-29] MEDS: FAT EMULSION 20% 250 ML in EMPTY BAG 1 BAG IV SCH (17:51)
[2018-09-29 18:16] LABS: Glucose,Whole Blood 137 mg/dL (75-99)
--- NOTE | 2018-09-29 20:14 | PN ---
PROGRESS NOTE DATE OF SERVICE: 09/29/2018 PRESENTING COMPLAINT: Tired. INTERVAL HISTORY: Patient remains in the ICU. He has chronic quadriplegia and suprapubic catheter. Baseline function has some movement in the right upper extremity. The patient was admitted with sepsis, pneumonia, UTI, Coumadin toxicity, status post bronchoscopy with mucus plugs removed. The patient did get a PEG tube, but then potassium pill that was crushed got stuck in it and it hence cannot be used. Liquids, including Coke, were tried to dislodge the pill. Oral toileting has been done. Patient is a bit more awake, able to communicate. Speech Therapy is working with the patient. REVIEW OF SYSTEMS: The patient really cannot talk. CURRENT MEDICATIONS: Reviewed. They include: 1. IV Cardizem. 2. TPN, lipids. 3. IV Synthroid. 4. IV meropenem. PHYSICAL EXAMINATION: Temperature 97.8, pulse 93, respiration 17, blood pressure 114/76, pulse ox 93 % on room air. GENERAL APPEARANCE: Lying in bed, awake. EYES: Pupils equal. Conjunctivae pale. Oral cavity had dry mucous membrane. NECK: JVD unable to assess. Mass not palpable. RESPIRATORY: Effort increased. LUNGS: Diminished breath sounds. CARDIOVASCULAR: First and second sounds normal. No edema. ABDOMEN: Soft, non-tender. PEG tube in place. Suprapubic catheter in place. NEUROLOGICAL: Patient at baseline has some activity in the right upper extremity. Otherwise, not able to use his lower extremities and left upper extremity. INVESTIGATIONS: White count 4.3, hemoglobin 7.1, potassium 3.5, BUN 27, creatinine 0.7. ASSESSMENT: 1. Bilateral multilobar and aspiration pneumonia, status post bronchoscopy with mucus plug removed. 2. Acute hypoxic respiratory failure requiring high-flow oxygen, now down to nasal cannula; much improved. 3. Essential hypertension. 4. Chronic quadriplegia with residual function in the right upper extremity at baseline. 5. Chronic neurogenic bladder with chronic suprapubic catheter. 6. Acute Coumadin toxicity, reversed with vitamin K. 7. Acute urinary tract infection with suprapubic catheter and cystitis. Cultures positive for pseudomonas, Enterococcus faecalis. 8. Acute metabolic encephalopathy from above with significant improvement. 9. Peripheral neuropathy. 10.CODE STATUS: FULL CODE. 11.Paroxysmal atrial fibrillation, currently in sinus rhythm. 12.Malfunction of the new PEG tube due to potassium pill being stuck. PLAN: Discussed with Dr. Christian. He may have to replace the PEG tube on Thursday. In the meantime, continue current medication and treatment plan. Patient is also on a therapeutic dose of Lovenox, which will have to be held the night before the procedure. MMODL / IJN: [id number] /
[2018-09-29] MEDS ORDERED: SODIUM BICARBONATE TAB 650 MG TAB PO ONE (22:18)
--- NOTE | 2018-09-29 23:06 | PN ---
PROGRESS NOTE DATE OF SERVICE: 09/29/2018 REASON FOR FOLLOWUP: Pseudomonas urinary tract infection and aspiration pneumonia. INTERVAL HISTORY: The patient is currently afebrile. The patient is hemodynamically stable. He is slightly more awake, alert; however, unable to communicate or answer any questions. No nausea or vomiting has been reported in the diary or the nursing staff. PHYSICAL EXAMINATION: Blood pressure 113/64 with a pulse of 79, temperature 97.8. He is 96% on 2 L nasal cannula. General description is an elderly male lying in bed in no distress. RESPIRATORY SYSTEM: Unlabored breathing with decreased breath sounds at the base. HEART: S1, S2. Regular rate and rhythm. ABDOMEN: Soft. No tenderness. LABS: Hemoglobin is 7.1, white count 4.3, BUN of 27, creatinine 0.70. DIAGNOSTIC IMPRESSION AND PLAN: Patient with pseudomonas urinary tract infection in this patient who does have a component of aspiration pneumonia. The patient's last x-ray done yesterday still showed persistent right lower lobe pneumonia. Sputum has been negative for any resistant pathogen. Patient does have multiple antibiotic allergies; hence will continue the patient on meropenem for another few days and monitor his clinical course closely. Continue with supportive care. MMODL / IJN: [id number] /
[2018-09-29 23:36] LABS: Glucose,Whole Blood 140 mg/dL (75-99)
[2018-09-30 05:45] LABS: Glucose,Whole Blood 119 mg/dL (75-99)
[2018-09-30] MEDS: INSULIN ASPART (NovoLOG) 100 UNIT/ML VIAL SQ SCH ×3 (05:51→18:49)
[2018-09-30] MEDS: DEXTROSE 5%-0.9% NACL 1,000 ML IV SCH (06:00)
[2018-09-30 06:34] LABS: Anion Gap 4 mmol/L; Blood Urea Nitrogen 32 mg/dL (9-20); Calcium 7.9 mg/dL (8.4-10.2); Carbon Dioxide 31 mmol/L (22-30); Chloride 102 mmol/L (98-107); Glucose 121 mg/dL (74-99); Magnesium 2.2 mg/dL (1.6-2.3); Phosphorus 2.4 mg/dL (2.5-4.5); Potassium 3.1 mmol/L (3.5-5.1); Sodium 137 mmol/L (137-145)
[2018-09-30] MEDS: POTASSIUM CHLORIDE 20 MEQ in WATER FOR INJECTION 1 100ML.BAG IVPB SCH ×2 (07:07→08:28)
--- NOTE | 2018-09-30 07:16 | XR ---
EXAMINATION TYPE: XR chest 1V portable DATE OF EXAM: 09/30/2018 HISTORY: Shortness of breath. COMPARISON: 09/28/2018 TECHNIQUE: Single view of the chest is submitted. FINDINGS: Demonstrated are scattered senescent parenchymal change. Left lower lobe atelectasis and/or infiltrate with pleural effusion is unchanged. Mixed infiltrate ri ght upper lobe demonstrates interval improvement. Suspect small right-sided effusion as well. Follow- up advised. The heart is stable. Hilar and mediastinal structures are within normal limits. Degenerative changes are seen of the dorsal spine. IMPRESSION: 1. Left lower lobe atelectasis and/or infiltrate with pleural effusion is unchanged. Mixed infiltrat e right upper lobe demonstrates interval improvement. Suspect small right-sided effusion as well. Fo llow-up advised.
[2018-09-30 07:35] LABS: HCT 20.9 % (39.0-53.0); Hypochromasia Moderate; MCH 33.2 pg (25.0-35.0); MCHC 31.8 g/dL (31.0-37.0); MCV 104.6 fL (80.0-100.0); Macrocytosis Moderate; Mean Platelet Volume 8.4; Platelet Count 248 k/uL (150-450); RDW 15.5 % (11.5-15.5); WBC 4.3 k/uL (3.8-10.6)
[2018-09-30 07:42] LABS: HGB 6.6 gm/dL (13.0-17.5)
[2018-09-30] MEDS: ENOXAPARIN 80 MG/0.8 ML SYRINGE SQ SCH ×3 (08:27→21:55)
[2018-09-30] MEDS: MEROPENEM 1 GM in SODIUM CHLORIDE 0.9% 100 ML IVPB SCH ×2 (08:27→16:26)
[2018-09-30] MEDS: PANTOPRAZOLE 40 MG/10 ML VIAL IVP SCH (08:27)
[2018-09-30] MEDS: LEVOTHYROXINE IVP 100 MCG/5 ML VIAL IV SCH (08:28)
[2018-09-30] MEDS: MULTIVITAMINS, THERA 1 EACH TAB PO SCH (08:36)
[2018-09-30] MEDS: guaiFENesin 600 MG TABLET.ER PO SCH ×2 (08:36→22:06)
[2018-09-30] MEDS: CHOLECALCIFEROL 400 UNIT TAB PO SCH (08:36)
[2018-09-30] MEDS: IPRATROPIUM-ALBUTEROL 3 ML NEB INHALATION SCH ×4 (08:46→20:54)
[2018-09-30] MEDS ORDERED: SODIUM PHOSPHATE 10 MMOL in SODIUM CHLORIDE 0.9% 250 ML IVPB SCH (10:00)
[2018-09-30] MEDS: FUROSEMIDE 10 MG/ML 2 ML VIAL IV SCH ×2 (10:04→21:55)
[2018-09-30] MEDS: BISACODYL 10 MG SUPP RECTAL PRN (10:31)
[2018-09-30] MEDS ORDERED: POTASSIUM PHOSPHATE 10 MMOL in SODIUM CHLORIDE 0.9% 100 ML IV ONE (12:00)
--- NOTE | 2018-09-30 12:09 | P.PN ---
Subjective Progress Note Date: 09/30/18 CHIEF COMPLAINT: PEG tube placement HISTORY OF PRESENT ILLNESS: Patient is s/p open gastrostomy tube and repair of incisional hernia. The patient is resting comfortably. Patient able to nod yes or no to questions. He denies abdominal pain. Denies nausea or vomiting. TPN is infusing. Patients feeding tube remains clogged from K-Dur that was administered the morning of 09/19/2018. PHYSICAL EXAM: VITAL SIGNS: Reviewed. GENERAL: Well-developed in no acute distress. HEENT: No sclera icterus. Extraocular movements grossly intact. Moist buccal mucosa. Head is atraumatic, normocephalic. ABDOMEN: Soft. Nondistended. Nontender. Gastrostomy tube intact without drainage-nonfunctional due to blockage. Midline incision with dressing. NEUROLOGIC: Nonverbal. Patient able to communicate by nodding his head yes or no. Quadriplegic. ASSESSMENT: 1. Malnutrition, patient failed swallow screen, s/p unsuccessful attempts of Dobbhoff insertion 2. Aborted upper endoscopy for PEG tube placement, unable to intubate esophagus 3. S/P open gastrostomy tube and repair of incisional hernia PLAN: 1. Continue TPN 2. Nursing reports they will continue to unclog tube. If unsuccessful, patient will require surgery for new gastrostomy tube on Thursday Nurse practitioner note has been reviewed by physician. Signing provider agrees with the documented findings, assessment, and plan of care. Objective - Vital Signs Vital signs: Vital Signs Temp 97.1 F L 09/30/18 11:50 Pulse 83 09/30/18 11:50 Resp 19 09/30/18 11:50 BP 109/60 09/30/18 11:50 Pulse Ox 94 L 09/30/18 11:00 Intake & Output 09/29/18 09/30/18 09/30/18 18:59 06:59 18:59 Intake Total 2329 1401 740.417 Output Total 1700 1167 190 Balance 629 234 550.417 Weight 72.1 kg 71.8 kg Intake: IV 1182 1351 605 Dextrose 5%-0.9% NaCl 1, 160 240 80 000 ml @ 20 mls/hr IV . Q24H [facility] Rx#:[id number] Fat Emulsion 20% 250 ml 42 231 0 In Empty Bag 1 bag @ 21 mls/hr IV [id number] [facility] Rx#:[id number] Meropenem 1 gm In Sodium 200 100 100 Chloride 0.9% 100 ml @ 200 mls/hr IVPB Q8HR [facility] Rx#:[id number] Potassium Chloride 20 meq 100 In Water For Injection 1 100ml.bag @ 50 mls/hr IVPB Q2H [facility] Rx#: [id number] Potassium Phosphate 15 650 520 260 mmol Mvi, Adult No.4 with Vit K 10 ml Trace (Conc- 1Ml/Dose) 1 ml Sodium Acetate 30 meq Magnesium Sulfate gm 1 gm Calcium Gluconate 1 gm In Amino Acid 5%-D15w 1,000 ml @ 65 mls/hr IV .BY DURATION [facility] Rx#:[id number] Potassium Phosphate 15 130 260 65 mmol Sodium Acetate 30 meq Magnesium Sulfate gm 1 gm Calcium Gluconate 1 gm In Amino Acid 5%-D15w 1,000 ml @ 65 mls/hr IV . BY DURATION [facility] Rx#: [id number] Intake, IV Titration 1147 50 135.417 Amount Diltiazem 125 mg In 15 50 135.417 Sodium Chloride 0.9% 100 ml @ 5 MG/HR 5 mls/hr IV .Q24H [facility] Rx#:[id number] Magnesium Sulfate-D5w Pmx 100 1 gm In Dextrose/Water 1 100ml.bag @ 100 mls/hr IVPB Q1H [facility] Rx#: [id number] Potassium Phosphate 15 1032 mmol Sodium Acetate 30 meq Magnesium Sulfate gm 1 gm Calcium Gluconate 1 gm In Amino Acid 5%-D15w 1,000 ml @ 65 mls/hr IV . BY DURATION [facility] Rx#: [id number] Blood Product 0 Rc Pheresis 2 As3 Unit 0 [id number] Output: Urine 1700 1167 190 Other: Voiding Method Indwelling Catheter Indwelling Catheter Indwelling Catheter - Labs CBC & Chem 7: 09/30/18 05:44 09/30/18 05:35 Labs: Abnormal Lab Results - Last 24 Hours (Table) 09/29/18 09/29/18 09/29/18 Range/Units 12:13 12:40 18:14 RBC (4.30-5.90) m/uL Hgb (13.0-17.5) gm/dL Hct (39.0-53.0) % MCV (80.0-100.0) fL Potassium (3.5-5.1) mmol/L Carbon Dioxide (22-30) mmol/L BUN (9-20) mg/dL Glucose (74-99) mg/dL POC Glucose (mg/dL) 132 H 125 H 137 H (75-99) mg/dL Calcium (8.4-10.2) mg/dL Phosphorus (2.5-4.5) mg/dL Crossmatch 09/29/18 09/30/18 09/30/18 Range/Units 23:35 05:35 05:44 RBC (4.30-5.90) m/uL Hgb (13.0-17.5) gm/dL Hct (39.0-53.0) % MCV (80.0-100.0) fL Potassium 3.1 L (3.5-5.1) mmol/L Carbon Dioxide 31 H (22-30) mmol/L BUN 32 H (9-20) mg/dL Glucose 121 H (74-99) mg/dL POC Glucose (mg/dL) 140 H 119 H (75-99) mg/dL Calcium 7.9 L (8.4-10.2) mg/dL Phosphorus 2.4 L (2.5-4.5) mg/dL Crossmatch 09/30/18 09/30/18 Range/Units 05:44 09:30 RBC 2.00 L (4.30-5.90) m/uL Hgb 6.6 L* (13.0-17.5) gm/dL Hct 20.9 L (39.0-53.0) % MCV 104.6 H (80.0-100.0) fL Potassium (3.5-5.1) mmol/L Carbon Dioxide (22-30) mmol/L BUN (9-20) mg/dL Glucose (74-99) mg/dL POC Glucose (mg/dL) (75-99) mg/dL Calcium (8.4-10.2) mg/dL Phosphorus (2.5-4.5) mg/dL Crossmatch See Detail
[2018-09-30 12:39] LABS: Glucose,Whole Blood 88 mg/dL (75-99)
--- NOTE | 2018-09-30 13:11 | P.PN ---
Subjective Progress Note Date: 09/30/18 Principal diagnosis: Acute pseudomonas aeruginosa urinary tract infection and multilobar pneumonia This is an 82-year-old white male, known history of quadriplegia, admitted on , main admitting diagnosis was sepsis, acute hypoxic respiratory failure, aspiration pneumonia, Pseudomonas urinary tract infection, electrolytes imbalance, coagulopathy and thrombocytopenia. His blood cultures have been negative since admission, his urine cultures were positive for pseudomonas aeruginosa sputum cultures positive for Rosalie albicans and E. coli. Patient was seen by Dr. Rivas on consultation, and he was treated with Merrem, he underwent a bronchoscopy and bronchoalveolar lavage, and it was eventually recommended that the patient needs a PEG tube placement. Dr. lópez saw the patient on consultation, and he underwent a trial of PEG tube placement, however numerous attempts were made and esophagus could not be intubated. Then it was the recommendation of undergoing surgical approach for a PEG tube placement and this would be done today by Dr. Christian. I saw the patient today in the ICU, he looks very comfortable, he is on 2 L nasal cannula, in no distress, he seems quite edematous and I believe that's probably because of his poor nutritional status, and hypoalbuminemia. Patient is on TPN for nutritional support. He is also on antibiotics for UTI and pneumonia. Labs were reviewed had a relatively normal electrolytes, normal renal profile, hemoglobin is 7.6. WBC count is 3.2. His last chest x-ray from 09/25 showed cardiomegaly and small pleural effusions, and bilateral airspace disease. Patient was reevaluated today on 09/28/2018, patient remains in the ICU, he underwent open gastrostomy tube placement yesterday by Dr. Christian. The procedure went fine, patient remains in the ICU, and the tube is yet to be used today. Patient is feeling fine, does not seem to be in any distress. He still on antibiotics for multilobar pneumonia and he is also on antibiotics for pseudomonal Urinary tract infection. Patient had normal labs including basic metabolic profile. His hemoglobin remains low at 7.2, it was 8.32 days ago, and it was 7.6 yesterday. Patient is comfortable, he is not in any distress, and he is hemodynamically stable. Reevaluated today on 09/29/2018, remains in the ICU, having issues with the patency of the PEG tube, surgery is to address that issue today. Could not be used yet for feeding, hopefully the issue will be fixed by later today then we can start enteral feeding on this patient, and eventually discontinue TPN. Clinically however the patient is about the same, remains on TPN, remains on antibiotics for his multilobar pneumonia, and remains on antibiotics for his pseudomonal urinary tract infection. Hemoglobin is holding at 7.1. Elective lites are normal renal profile is normal. No chest x-ray was done today. Chest x-ray from yesterday was reviewed. Reevaluated today on 09/22/2018, patient is still in the ICU, still on TPN, remains on antibiotics, his overall condition is about the same. We are however having issues with his PEG tube which seems to be plugged, and multiple attempts were made by the surgeon to unplug the PEG tube, but all trials have failed. Discussed that with the surgeon, I believe he is planning to take him back to the operating room early next week. In the meantime we are keeping the patient on TPN. Keeping him on all the present supportive care measures and all ant ibiotics, patient is extremely frail, he is paraplegic, and I have a strong feeling that his prognosis is going to be extremely poor considering his overall condition. His hemoglobin today was noted to be low at 6.6, and I have recommended a blood transfusion with 1 unit of packed RBCs. His electrolytes are normal except for low potassium being corrected as per protocol. Chest x- ray today showed definite improvement in his right upper lobe infiltrate and left lower lobe infiltrate, but not completely resolved. Objective - Vital Signs Vital signs: Vital Signs Temp 97.5 F L 09/30/18 12:30 Pulse 85 09/30/18 12:30 Resp 21 09/30/18 12:30 BP 123/70 09/30/18 12:30 Pulse Ox 95 09/30/18 12:00 Intake & Output 09/29/18 09/30/18 09/30/18 18:59 06:59 18:59 Intake Total 2329 1401 945.417 Output Total 1700 1167 615 Balance 629 234 330.417 Weight 72.1 kg 71.8 kg Intake: IV 1182 1351 710 Dextrose 5%-0.9% NaCl 1, 160 240 120 000 ml @ 20 mls/hr IV . Q24H [facility] Rx#:[id number] Fat Emulsion 20% 250 ml 42 231 0 In Empty Bag 1 bag @ 21 mls/hr IV [id number] [facility] Rx#:[id number] Meropenem 1 gm In Sodium 200 100 100 Chloride 0.9% 100 ml @ 200 mls/hr IVPB Q8HR [facility] Rx#:[id number] Potassium Chloride 20 meq 100 In Water For Injection 1 100ml.bag @ 50 mls/hr IVPB Q2H [facility] Rx#: [id number] Potassium Phosphate 15 650 520 325 mmol Mvi, Adult No.4 with Vit K 10 ml Trace (Conc- 1Ml/Dose) 1 ml Sodium Acetate 30 meq Magnesium Sulfate gm 1 gm Calcium Gluconate 1 gm In Amino Acid 5%-D15w 1,000 ml @ 65 mls/hr IV .BY DURATION [facility] Rx#:[id number] Potassium Phosphate 15 130 260 65 mmol Sodium Acetate 30 meq Magnesium Sulfate gm 1 gm Calcium Gluconate 1 gm In Amino Acid 5%-D15w 1,000 ml @ 65 mls/hr IV . BY DURATION [facility] Rx#: [id number] Intake, IV Titration 1147 50 235.417 Amount Diltiazem 125 mg In 15 50 135.417 Sodium Chloride 0.9% 100 ml @ 5 MG/HR 5 mls/hr IV .Q24H [facility] Rx#:[id number] Magnesium Sulfate-D5w Pmx 100 1 gm In Dextrose/Water 1 100ml.bag @ 100 mls/hr IVPB Q1H [facility] Rx#: [id number] Potassium Phosphate 10 100 mmol In Sodium Chloride 0 .9% 100 ml @ 50 mls/hr IV Q2H [facility] Rx#:[id number] Potassium Phosphate 15 1032 mmol Sodium Acetate 30 meq Magnesium Sulfate gm 1 gm Calcium Gluconate 1 gm In Amino Acid 5%-D15w 1,000 ml @ 65 mls/hr IV . BY DURATION [facility] Rx#: [id number] Blood Product 0 Rc Pheresis 2 As3 Unit 0 [id number] Output: Urine 1700 1167 615 Other: Voiding Method Indwelling Catheter Indwelling Catheter Indwelling Catheter - Exam Physical Exam: Revealed an 82-year-old white male paraplegic, on few liters nasal cannula, in no distress. Head: Atraumatic, normocephalic, dry mucous membranes noted. HEENT:[Neck is supple.] [No neck masses.] [No thyromegaly.] [No JVD.] PERRLA, EOMI, no icterus, dry mucous membranes noted. Chest: [Crackles and rhonchi at the bases, symmetrical chest expansion, no chest wall tenderness.] Cardiac Exam: [Irregular irregular rhythm Normal S1 and S2, no S3 gallop, no murmur.] Abdomen: [Soft, nontender, no megaly, no rebound, no guarding, normal bowel sounds.] Edematous abdominal wall is noted. PEG tube site is intact and clean. However the PEG tube is completely occluded, and not much could be given through the PEG tube at this point. Attempted flushing the tube, but completely occluded and plugged Extremities: [No clubbing, 2+ bipedal edema, no cyanosis. No calf tenderness. Neurological Exam: Paraplegic, otherwise [No focal neurologic deficit.] Patient is nonverbal, communicates by nodding his head. Flexion contractures and atrophy of lower extremities noted. Skin: No rashes. Lymphatics: No lymphadenopathy. - Labs CBC & Chem 7: 09/30/18 05:44 09/30/18 05:35 Labs: Abnormal Lab Results - Last 24 Hours (Table) 09/29/18 09/29/18 09/30/18 Range/Units 18:14 23:35 05:35 RBC (4.30-5.90) m/uL Hgb (13.0-17.5) gm/dL Hct (39.0-53.0) % MCV (80.0-100.0) fL Potassium 3.1 L (3.5-5.1) mmol/L Carbon Dioxide 31 H (22-30) mmol/L BUN 32 H (9-20) mg/dL Glucose 121 H (74-99) mg/dL POC Glucose (mg/dL) 137 H 140 H (75-99) mg/dL Calcium 7.9 L (8.4-10.2) mg/dL Phosphorus 2.4 L (2.5-4.5) mg/dL Crossmatch 09/30/18 09/30/18 09/30/18 Range/Units 05:44 05:44 09:30 RBC 2.00 L (4.30-5.90) m/uL Hgb 6.6 L* (13.0-17.5) gm/dL Hct 20.9 L (39.0-53.0) % MCV 104.6 H (80.0-100.0) fL Potassium (3.5-5.1) mmol/L Carbon Dioxide (22-30) mmol/L BUN (9-20) mg/dL Glucose (74-99) mg/dL POC Glucose (mg/dL) 119 H (75-99) mg/dL Calcium (8.4-10.2) mg/dL Phosphorus (2.5-4.5) mg/dL Crossmatch See Detail Assessment and Plan Assessment: Impression: 1 acute hypoxic respiratory failure secondary to pneumonia, most likely aspiration pneumonia unless for otherwise. His sputum cultures have been positive for E. coli and for Rosalie albicans. 2 acute urinary tract infection secondary to pseudomonas aeruginosa 3 hyponatremia on presentation, resolved since admission. 4 supra pubic catheter for recurrent urinary tract infection 5 quadriplegia secondary to previous cervical fracture 6 previous history of deep vein thrombosis maintained on halfway antic oagulation therapy 7 failed the swallow evaluation, patient is scheduled for PEG tube placement fran gically today since previous attempts to do it under IV conscious sedation failed. 8 paroxysmal atrial fibrillation, 9 Coumadin toxicity on admission, resolved 10 history of hypertension 11 history of hypothyroidism 12 plugged PEG tube, multiple attempts to unplug the PEG tube have failed. May require surgery again. And his tube replacement in the meantime continue TPN per 12 status post open gastrostomy tube placement and repair of incisional hernia postoperative day #4, however the PEG tube seems to be nonfunctional at this point, may require replacement. Recommendation: Continue antibiotics, reviewed the chest x-ray, continue TPN, continue bronchodilators, corrected electrolytes accordingly, continue GI and DVT prophylaxis, overall picture looks very poor, may have to consider a somewhat along the line discussing CODE STATUS with his daughter whom I haven't seen in the last 4 days. Again patient has extremely poor long-term prognostic picture. Time with Patient: Less than 30
[2018-09-30 14:05] LABS: Glucose,Whole Blood 88 mg/dL (75-99)
--- NOTE | 2018-09-30 15:26 | XR ---
EXAMINATION TYPE: XR abdomen 1V DATE OF EXAM: 09/30/2018 Comparison: 09/19/2009 Clinical History: 82-year-old male abdominal pain Findings: Left basilar opacity. Skin shari along the midline epigastric region. Just small effusions. Possibl e PEG tube is present. No evidence for free intraperitoneal air. Prominent stool distending the rectum up to 8.7 cm wide. No dilated small bowel loops with differenti al air-fluid levels seen. Some limitations due to the degree of penetration. Impression: 1. Suggestion of small effusions with adjacent atelectasis and/or consolidation at the lung bases. 2. Query PEG tube. Epigastric midline skin shari. 3. No free air seen. Overall nonobstructive bowel gas pattern. 4. Rectum distended with stool up to 8.7 cm wide. Correlate to exclude fecal impaction.
[2018-09-30] MEDS: DILTIAZEM 125 MG in SODIUM CHLORIDE 0.9% 100 ML IV SCH (16:26)
[2018-09-30 16:47] LABS: Basophils % (A) 0 %; Eosinophils # (A) 0.1 k/uL (0-0.7); Eosinophils % (A) 2 %; HCT 25.6 % (39.0-53.0); Hypochromasia Slight; Lymphocytes # (A) 0.5 k/uL (1.0-4.8); Lymphocytes % (A) 10 %; MCH 32.1 pg (25.0-35.0); MCHC 31.8 g/dL (31.0-37.0); MCV 101.2 fL (80.0-100.0); Macrocytosis Slight; Mean Platelet Volume 8.4; Monocytes # (A) 0.3 k/uL (0-1.0); Monocytes % (A) 7 %; Neutrophils # (A) 3.5 k/uL (1.3-7.7); Neutrophils % (A) 80 %; Platelet Count 236 k/uL (150-450); RBC 2.53 m/uL (4.30-5.90); RDW 15.5 % (11.5-15.5); WBC 4.4 k/uL (3.8-10.6)
[2018-09-30 16:48] LABS: HGB 8.1 gm/dL (13.0-17.5)
[2018-09-30 18:50] LABS: Glucose,Whole Blood 125 mg/dL (75-99)
--- NOTE | 2018-09-30 22:04 | PN ---
PROGRESS NOTE DATE OF SERVICE: 09/30/2018. REASON FOR FOLLOWUP: Pseudomonas urinary tract infection and aspiration pneumonia. INTERVAL HISTORY: The patient is afebrile. Has been breathing comfortably. He did have some congested cough. No nausea, vomiting has been reported. No diarrhea. The patient unable to provide any reliable history. PHYSICAL EXAMINATION: Blood pressure 119/73 with a pulse of 90, temperature is 97.6. He is 98% on 2 L nasal cannula. General description is an elderly male lying in bed in no distress. Respiratory system: Unlabored breathing. Coarse breath sounds in the bases. No wheezes. Heart S1, S2. Regular rate and rhythm. Abdomen soft, no tenderness. Extremities: No edema of the feet. LABS: Hemoglobin 8.9, white count 4.4, BUN of 32, creatinine 0.76. Chest x-ray this morning left lobe atelectasis or infiltrate. Right upper lobe infiltrate. Abdominal x-ray no free air. Rectum distended, for fecal impaction. DIAGNOSTIC IMPRESSION AND PLAN: Patient with Pseudomonas urinary tract infection multifactorial with aspiration pneumonia with persistent infiltrate. The patient to continue with meropenem 1 g q.8h because of his multiple antibiotic allergies. We will monitor his clinical course closely and may benefit from an surgery following the patient. Continue supportive care. MMODL / IJN: [id number] /
--- NOTE | 2018-09-30 23:04 | PN ---
PROGRESS NOTE DATE OF SERVICE: 09/30/2018 This 82-year-old gentleman who was admitted with acute hypoxic respiratory failure secondary to bibasilar pneumonia is being closely monitored. The sputum culture is positive for E coli and Rosalie albicans. The patient also has UTI secondary to Pseudomonas aeruginosa. Multiple consultants, including Dr. Starkey as well as Dr. Wynne, are following the patient closely. The patient also had apparently a plugged PEG tube. Surgery is following the patient for possible re-insertion at this time. The patient underwent open gastrostomy tube insertion as well as repair of incisional hernia by Dr. Christian. Past medical history reviewed. Review of systems could not be taken; the patient is confused. CURRENT MEDICATIONS: Reviewed. They include: 1. DuoNeb q.i.d. and p.r.n. 2. Artificial Tears. 3. Dulcolax. 4. Vitamin D3. 5. Diltiazem. 6. TPN. 7. Mucinex. 8. Apresoline. 9. NovoLog. 10.Imodium. 11.Meropenem 1 gram IV q.8. 12.Replacement protocols. 13.Multivitamins. 14.Narcan. 15.Protonix. PHYSICAL EXAMINATION: Patient is conscious, confused. Pulse 90, blood pressure 119/76, respirations 17, temperature 97.6, pulse ox 98% on 2 L. HEENT: Conjunctivae normal. Oral mucosa moist. NECK: No jugular venous distention. No carotid bruit. No lymph node enlargement. CARDIOVASCULAR SYSTEM: S1, S2 muffled. RESPIRATORY SYSTEM: Breath sounds diminished at the bases. Bilateral scattered rhonchi and crackles. Expiratory wheezing also present. ABDOMEN: Soft. PEG tube in situ which is plugged. LEGS: No edema. No swelling. NERVOUS SYSTEM: Diffusely weak. LABS: WBC 4.2, hemoglobin is 8.1. Potassium is 3.1. ASSESSMENT: 1. Bilateral multilobar aspiration pneumonia, status post bronchoscopy with mucus plug removal. 2. Acute hypoxic respiratory failure requiring high-flow oxygen, down to nasal cannula. 3. Essential hypertension. 4. Chronic quadriplegia with residual function of the right upper extremity at baseline. 5. Pseudomonas from the urine and rosalie, Escherichia coli from the sputum. 6. Chronic neurogenic bladder with chronic suprapubic catheter. 7. Acute Coumadin toxicity, reversed with vitamin K. 8. Acute urinary tract infection secondary to suprapubic catheter. 9. Acute metabolic encephalopathy from above, with significant improvement. 10.Peripheral neuropathy. 11.Paroxysmal atrial fibrillation, currently in normal sinus rhythm. 12.Malnutrition, mild to moderate, status post PEG tube insertion. 13.PEG tube blockage. 14.FULL CODE. RECOMMENDATIONS AND DISCUSSION: I recommend to continue current medications, continue with symptomatic treatment. Continue with antibiotic and the rest of the medications. Follow closely with Surgery regarding the blocked PEG tube. Closely follow with Dr. Starkey. Currently the patient is FULL CODE. However, the prognosis is extremely guarded. Will talk to the family regarding the code status. Hemoglobin is 8.1 at this time. Will repeat labs. Continue the rest of the medications. See orders for further details. Once again, the prognosis is extremely guarded. Further recommendations to follow. MMSAYL / IJN: [id number] /
[2018-09-30 23:58] LABS: Glucose,Whole Blood 134 mg/dL (75-99)
[2018-10-01] MEDS: INSULIN ASPART (NovoLOG) 100 UNIT/ML VIAL SQ SCH ×4 (00:14→18:57)
[2018-10-01] MEDS: MEROPENEM 1 GM in SODIUM CHLORIDE 0.9% 100 ML IVPB SCH ×3 (00:14→16:24)
[2018-10-01 05:54] LABS: Basophils % (A) 0 %; Eosinophils # (A) 0.1 k/uL (0-0.7); Eosinophils % (A) 2 %; HCT 27.3 % (39.0-53.0); HGB 8.8 gm/dL (13.0-17.5); Hypochromasia Moderate; Lymphocytes # (A) 0.4 k/uL (1.0-4.8); Lymphocytes % (A) 7 %; MCH 32.7 pg (25.0-35.0); MCHC 32.2 g/dL (31.0-37.0); MCV 101.5 fL (80.0-100.0); Macrocytosis Slight; Mean Platelet Volume 8.3; Monocytes # (A) 0.4 k/uL (0-1.0); Monocytes % (A) 8 %; Neutrophils # (A) 3.8 k/uL (1.3-7.7); Neutrophils % (A) 80 %; Platelet Count 234 k/uL (150-450); Poikilocytosis Slight; RBC 2.69 m/uL (4.30-5.90); RDW 15.6 % (11.5-15.5); WBC 4.7 k/uL (3.8-10.6)
[2018-10-01 05:58] LABS: Anion Gap 2 mmol/L; Blood Urea Nitrogen 34 mg/dL (9-20); Carbon Dioxide 33 mmol/L (22-30); Chloride 103 mmol/L (98-107); Glucose 103 mg/dL (74-99); Ionized Calcium 4.7 mg/dL (4.5-5.3); Phosphorus 2.8 mg/dL (2.5-4.5); Potassium 3.9 mmol/L (3.5-5.1); Sodium 138 mmol/L (137-145)
[2018-10-01 06:01] LABS: Glucose,Whole Blood 104 mg/dL (75-99)
[2018-10-01] MEDS: CHOLECALCIFEROL 400 UNIT TAB PO SCH (08:15)
[2018-10-01] MEDS: MULTIVITAMINS, THERA 1 EACH TAB PO SCH (08:15)
[2018-10-01] MEDS: guaiFENesin 600 MG TABLET.ER PO SCH ×2 (08:15→20:41)
[2018-10-01] MEDS: PANTOPRAZOLE 40 MG/10 ML VIAL IVP SCH (08:34)
[2018-10-01] MEDS: LEVOTHYROXINE IVP 100 MCG/5 ML VIAL IV SCH (08:42)
[2018-10-01] MEDS: FUROSEMIDE 10 MG/ML 2 ML VIAL IV SCH ×2 (08:42→20:41)
[2018-10-01] MEDS: DEXTROSE 5%-0.9% NACL 1,000 ML IV SCH (08:43)
[2018-10-01] MEDS: IPRATROPIUM-ALBUTEROL 3 ML NEB INHALATION SCH ×4 (09:11→21:03)
[2018-10-01] MEDS ORDERED: NA PHOS,M-B/NA PHOS,DI-BA 133 ML ENEMA RECTAL STA (10:13)
--- NOTE | 2018-10-01 11:13 | P.PN ---
Subjective Progress Note Date: 10/01/18 CHIEF COMPLAINT: PEG tube placement HISTORY OF PRESENT ILLNESS: Patient is s/p open gastrostomy tube and repair of incisional hernia. The patient is resting comfortably. Patient able to nod yes or no to questions. Patient reported abdominal pain yesterday. Abdominal xray was obtained revealing rectum distended with stool up to 8.7 cm. Correlate to exclude fecal impaction. Soapsuds enema was ordered, however the patient had 2 bowel movements and soap suds enema was not given. Patient continues to report abdominal pain this morning. Denies nausea or vomiting. TPN is infusing. Patients feeding tube remains clogged from K-Dur that was administered the morning of 09/29/2018. PHYSICAL EXAM: VITAL SIGNS: Reviewed. GENERAL: Well-developed in no acute distress. HEENT: No sclera icterus. Extraocular movements grossly intact. Moist buccal mucosa. Head is atraumatic, normocephalic. ABDOMEN: Soft. Nondistended. Reports tenderness upon palpation. Gastrostomy tube intact without drainage-nonfunctional due to blockage. Midline incision with dressing. NEUROLOGIC: Nonverbal. Patient able to communicate by nodding his head yes or no. Quadriplegic. ASSESSMENT: 1. Malnutrition, patient failed swallow screen, s/p unsuccessful attempts of Dobbhoff insertion 2. Aborted upper endoscopy for PEG tube placement, unable to intubate esophagus 3. S/P open gastrostomy tube and repair of incisional hernia 4. Clogged gastrostomy tube secondary to medication administration 5. Fecal impaction PLAN: 1. Continue TPN 2. Dr. Christian to exchange gastrostomy tube on Thursday at the bedside. Hold Lovenox Thursday 3. Fleets enema x 1. Dulcolax suppository daily. 4. Nursing to change abdominal dressing today. Change PRN if saturated Nurse practitioner note has been reviewed by physician. Signing provider agrees with the documented findings, assessment, and plan of care. Objective - Vital Signs Vital signs: Vital Signs Temp 97.5 F L 10/01/18 04:00 Pulse 83 10/01/18 10:00 Resp 18 10/01/18 10:00 BP 109/71 10/01/18 10:00 Pulse Ox 94 L 10/01/18 10:00 Intake & Output 03/10/01/18 10/01/18 18:59 06:59 18:59 Intake Total 1634.313 1853 270 Output Total 1105 1585 360 Balance 695.417 -585 -90 Weight 69.3 kg 69.3 kg Intake: IV 1255 1000 270 Dextrose 5%-0.9% NaCl 1, 240 220 40 000 ml @ 20 mls/hr IV . Q24H [facility] Rx#:[id number] Fat Emulsion 20% 250 ml 0 In Empty Bag 1 bag @ 21 mls/hr IV [id number] [facility] Rx#:[id number] Meropenem 1 gm In Sodium 200 100 Chloride 0.9% 100 ml @ 200 mls/hr IVPB Q8HR [facility] Rx#:[id number] Potassium Chloride 20 meq 100 In Water For Injection 1 100ml.bag @ 50 mls/hr IVPB Q2H [facility] Rx#: [id number] Potassium Phosphate 15 650 780 130 mmol Mvi, Adult No.4 with Vit K 10 ml Trace (Conc- 1Ml/Dose) 1 ml Sodium Acetate 30 meq Magnesium Sulfate gm 1 gm Calcium Gluconate 1 gm In Amino Acid 5%-D15w 1,000 ml @ 65 mls/hr IV .BY DURATION [facility] Rx#:[id number] Potassium Phosphate 15 65 mmol Sodium Acetate 30 meq Magnesium Sulfate gm 1 gm Calcium Gluconate 1 gm In Amino Acid 5%-D15w 1,000 ml @ 65 mls/hr IV . BY DURATION [facility] Rx#: [id number] Intake, IV Titration 235.417 Amount Diltiazem 125 mg In 135.417 Sodium Chloride 0.9% 100 ml @ 5 MG/HR 5 mls/hr IV .Q24H [facility] Rx#:[id number] Potassium Phosphate 10 100 mmol In Sodium Chloride 0 .9% 100 ml @ 50 mls/hr IV Q2H [facility] Rx#:[id number] Blood Product 310 Rc Pheresis 2 As3 Unit 310 [id number] Output: Urine 1105 1585 360 Other: Voiding Method Indwelling Catheter Indwelling Catheter # Bowel Movements 1 - Labs CBC & Chem 7: 10/01/18 05:06 10/01/18 05:06 Labs: Abnormal Lab Results - Last 24 Hours (Table) 09/30/18 09/30/18 09/30/18 Range/Units 09:30 16:20 18:47 RBC 2.53 L (4.30-5.90) m/uL Hgb 8.1 L D (13.0-17.5) gm/dL Hct 25.6 L (39.0-53.0) % MCV 101.2 H (80.0-100.0) fL RDW (11.5-15.5) % Lymphocytes # 0.5 L (1.0-4.8) k/uL Carbon Dioxide (22-30) mmol/L BUN (9-20) mg/dL Glucose (74-99) mg/dL POC Glucose (mg/dL) 125 H (75-99) mg/dL Calcium (8.4-10.2) mg/dL Crossmatch See Detail 09/30/18 10/01/18 10/01/18 Range/Units 23:55 05:06 05:06 RBC 2.69 L (4.30-5.90) m/uL Hgb 8.8 L (13.0-17.5) gm/dL Hct 27.3 L (39.0-53.0) % MCV 101.5 H (80.0-100.0) fL RDW 15.6 H (11.5-15.5) % Lymphocytes # 0.4 L (1.0-4.8) k/uL Carbon Dioxide 33 H (22-30) mmol/L BUN 34 H (9-20) mg/dL Glucose 103 H (74-99) mg/dL POC Glucose (mg/dL) 134 H (75-99) mg/dL Calcium 8.0 L (8.4-10.2) mg/dL Crossmatch 10/01/18 Range/Units 06:00 RBC (4.30-5.90) m/uL Hgb (13.0-17.5) gm/dL Hct (39.0-53.0) % MCV (80.0-100.0) fL RDW (11.5-15.5) % Lymphocytes # (1.0-4.8) k/uL Carbon Dioxide (22-30) mmol/L BUN (9-20) mg/dL Glucose (74-99) mg/dL POC Glucose (mg/dL) 104 H (75-99) mg/dL Calcium (8.4-10.2) mg/dL Crossmatch
[2018-10-01 11:48] LABS: Glucose,Whole Blood 126 mg/dL (75-99)
[2018-10-01] MEDS: ENOXAPARIN 80 MG/0.8 ML SYRINGE SQ SCH ×2 (12:19→20:41)
--- NOTE | 2018-10-01 12:54 | P.PN ---
Subjective Progress Note Date: 10/01/18 Principal diagnosis: Acute pseudomonas aeruginosa urinary tract infection and multilobar pneumonia This is an 82-year-old white male, known history of quadriplegia, admitted on , main admitting diagnosis was sepsis, acute hypoxic respiratory failure, aspiration pneumonia, Pseudomonas urinary tract infection, electrolytes imbalance, coagulopathy and thrombocytopenia. His blood cultures have been negative since admission, his urine cultures were positive for pseudomonas aeruginosa sputum cultures positive for Rosalie albicans and E. coli. Patient was seen by Dr. Rivas on consultation, and he was treated with Merrem, he underwent a bronchoscopy and bronchoalveolar lavage, and it was eventually recommended that the patient needs a PEG tube placement. Dr. lópez saw the patient on consultation, and he underwent a trial of PEG tube placement, however numerous attempts were made and esophagus could not be intubated. Then it was the recommendation of undergoing surgical approach for a PEG tube placement and this would be done today by Dr. Christian. I saw the patient today in the ICU, he looks very comfortable, he is on 2 L nasal cannula, in no distress, he seems quite edematous and I believe that's probably because of his poor nutritional status, and hypoalbuminemia. Patient is on TPN for nutritional support. He is also on antibiotics for UTI and pneumonia. Labs were reviewed had a relatively normal electrolytes, normal renal profile, hemoglobin is 7.6. WBC count is 3.2. His last chest x-ray from 09/25 showed cardiomegaly and small pleural effusions, and bilateral airspace disease. Patient was reevaluated today on 09/28/2018, patient remains in the ICU, he underwent open gastrostomy tube placement yesterday by Dr. Christian. The procedure went fine, patient remains in the ICU, and the tube is yet to be used today. Patient is feeling fine, does not seem to be in any distress. He still on antibiotics for multilobar pneumonia and he is also on antibiotics for pseudomonal Urinary tract infection. Patient had normal labs including basic metabolic profile. His hemoglobin remains low at 7.2, it was 8.32 days ago, and it was 7.6 yesterday. Patient is comfortable, he is not in any distress, and he is hemodynamically stable. Reevaluated today on 09/29/2018, remains in the ICU, having issues with the patency of the PEG tube, surgery is to address that issue today. Could not be used yet for feeding, hopefully the issue will be fixed by later today then we can start enteral feeding on this patient, and eventually discontinue TPN. Clinically however the patient is about the same, remains on TPN, remains on antibiotics for his multilobar pneumonia, and remains on antibiotics for his pseudomonal urinary tract infection. Hemoglobin is holding at 7.1. Elective lites are normal renal profile is normal. No chest x-ray was done today. Chest x-ray from yesterday was reviewed. Reevaluated today on 09/30/2018, patient is still in the ICU, still on TPN, remains on antibiotics, his overall condition is about the same. We are however having issues with his PEG tube which seems to be plugged, and multiple attempts were made by the surgeon to unplug the PEG tube, but all trials have failed. Discussed that with the surgeon, I believe he is planning to take him back to the operating room early next week. In the meantime we are keeping the patient on TPN. Keeping him on all the present supportive care measures and all ant ibiotics, patient is extremely frail, he is paraplegic, and I have a strong feeling that his prognosis is going to be extremely poor considering his overall condition. His hemoglobin today was noted to be low at 6.6, and I have recommended a blood transfusion with 1 unit of packed RBCs. His electrolytes are normal except for low potassium being corrected as per protocol. Chest x- ray today showed definite improvement in his right upper lobe infiltrate and left lower lobe infiltrate, but not completely resolved. Patient was reevaluated today on 10/01/2018, remains in the ICU, remains on TPN, remains on few liters nasal cannula, and he remains on multiple antibiotics for his pneumonia and urinary tract infection.and his hemoglobin is up to 8.8, did receive 3 units of packed RBCs yesterday. Electrolytes and renal profile are normal, CBC is relatively unremarkable. No chest x-ray was done. We continue to have problems with the blockage of the PEG tube, multiple attempts have failed to unplug it. Patient may require surgical intervention and again next week. Objective - Vital Signs Vital signs: Vital Signs Temp 97.5 F L 10/01/18 12:00 Pulse 100 10/01/18 12:34 Resp 19 10/01/18 12:00 BP 129/76 10/01/18 12:00 Pulse Ox 96 10/01/18 12:00 Intake & Output 09/30/18 10/01/18 10/01/18 18:59 06:59 18:59 Intake Total 1440.743 0677 525 Output Total 1105 1585 835 Balance 695.417 -585 -310 Weight 69.3 kg 69.3 kg Intake: IV 1255 1000 525 Dextrose 5%-0.9% NaCl 1, 240 220 100 000 ml @ 20 mls/hr IV . Q24H [facility] Rx#:[id number] Fat Emulsion 20% 250 ml 0 In Empty Bag 1 bag @ 21 mls/hr IV [id number] [facility] Rx#:[id number] Meropenem 1 gm In Sodium 200 100 Chloride 0.9% 100 ml @ 200 mls/hr IVPB Q8HR [facility] Rx#:[id number] Potassium Chloride 20 meq 100 In Water For Injection 1 100ml.bag @ 50 mls/hr IVPB Q2H [facility] Rx#: [id number] Potassium Phosphate 15 650 780 325 mmol Mvi, Adult No.4 with Vit K 10 ml Trace (Conc- 1Ml/Dose) 1 ml Sodium Acetate 30 meq Magnesium Sulfate gm 1 gm Calcium Gluconate 1 gm In Amino Acid 5%-D15w 1,000 ml @ 65 mls/hr IV .BY DURATION [facility] Rx#:[id number] Potassium Phosphate 15 65 mmol Sodium Acetate 30 meq Magnesium Sulfate gm 1 gm Calcium Gluconate 1 gm In Amino Acid 5%-D15w 1,000 ml @ 65 mls/hr IV . BY DURATION [facility] Rx#: [id number] Intake, IV Titration 235.417 Amount Diltiazem 125 mg In 135.417 Sodium Chloride 0.9% 100 ml @ 5 MG/HR 5 mls/hr IV .Q24H [facility] Rx#:[id number] Potassium Phosphate 10 100 mmol In Sodium Chloride 0 .9% 100 ml @ 50 mls/hr IV Q2H [facility] Rx#:[id number] Blood Product 310 Rc Pheresis 2 As3 Unit 310 [id number] Output: Urine 1105 1585 835 Other: Voiding Method Indwelling Catheter Indwelling Catheter # Bowel Movements 1 - Exam Physical Exam: Revealed an 82-year-old white male paraplegic, on few liters nasal cannula, in no distress. Head: Atraumatic, normocephalic, dry mucous membranes noted. HEENT:[Neck is supple.] [No neck masses.] [No thyromegaly.] [No JVD.] PERRLA, EOMI, no icterus, dry mucous membranes noted. Chest: [Crackles and rhonchi at the bases, symmetrical chest expansion, no chest wall tenderness.] Cardiac Exam: [Irregular irregular rhythm Normal S1 and S2, no S3 gallop, no murmur.] Abdomen: [Soft, nontender, no megaly, no rebound, no guarding, normal bowel sounds.] Edematous abdominal wall is noted. PEG tube site is intact and clean. However the PEG tube is completely occluded, and not much could be given through the PEG tube at this point. Extremities: [No clubbing, 2+ bipedal edema, no cyanosis. No calf tenderness. Neurological Exam: Paraplegic, otherwise [No focal neurologic deficit.] Patient is nonverbal, communicates by nodding his head. Flexion contractures and atrophy of lower extremities noted. Skin: No rashes. Lymphatics: No lymphadenopathy. - Labs CBC & Chem 7: 10/01/18 05:06 10/01/18 05:06 Labs: Abnormal Lab Results - Last 24 Hours (Table) 09/30/18 09/30/18 09/30/18 Range/Units 09:30 16:20 18:47 RBC 2.53 L (4.30-5.90) m/uL Hgb 8.1 L D (13.0-17.5) gm/dL Hct 25.6 L (39.0-53.0) % MCV 101.2 H (80.0-100.0) fL RDW (11.5-15.5) % Lymphocytes # 0.5 L (1.0-4.8) k/uL Carbon Dioxide (22-30) mmol/L BUN (9-20) mg/dL Glucose (74-99) mg/dL POC Glucose (mg/dL) 125 H (75-99) mg/dL Calcium (8.4-10.2) mg/dL Crossmatch See Detail 09/30/18 10/01/18 10/01/18 Range/Units 23:55 05:06 05:06 RBC 2.69 L (4.30-5.90) m/uL Hgb 8.8 L (13.0-17.5) gm/dL Hct 27.3 L (39.0-53.0) % MCV 101.5 H (80.0-100.0) fL RDW 15.6 H (11.5-15.5) % Lymphocytes # 0.4 L (1.0-4.8) k/uL Carbon Dioxide 33 H (22-30) mmol/L BUN 34 H (9-20) mg/dL Glucose 103 H (74-99) mg/dL POC Glucose (mg/dL) 134 H (75-99) mg/dL Calcium 8.0 L (8.4-10.2) mg/dL Crossmatch 10/01/18 10/01/18 Range/Units 06:00 11:46 RBC (4.30-5.90) m/uL Hgb (13.0-17.5) gm/dL Hct (39.0-53.0) % MCV (80.0-100.0) fL RDW (11.5-15.5) % Lymphocytes # (1.0-4.8) k/uL Carbon Dioxide (22-30) mmol/L BUN (9-20) mg/dL Glucose (74-99) mg/dL POC Glucose (mg/dL) 104 H 126 H (75-99) mg/dL Calcium (8.4-10.2) mg/dL Crossmatch Assessment and Plan Assessment: Impression: 1 acute hypoxic respiratory failure secondary to pneumonia, most likely aspiration pneumonia unless for otherwise. His sputum cultures have been positive for E. coli and for Rosalie albicans. 2 acute urinary tract infection secondary to pseudomonas aeruginosa 3 hyponatremia on presentation, resolved since admission. 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 8 paroxysmal atrial fibrillation, 9 Coumadin toxicity on admission, resolved 10 history of hypertension 11 history of hypothyroidism 12 plugged PEG tube, multiple attempts to unplug the PEG tube have failed. May require surgery again. And his tube replacement in the meantime continue TPN per 12 status post open gastrostomy tube placement and repair of incisional hernia postoperative day #5, however the PEG tube seems to be nonfunctional at this point, may require replacement. Recommendation: continue antibiotics, TPN, bronchodilators, GI and DVT prophylaxis, patient has demonstrated significant stability in the ICU over the last 1 week, and I would likely arrange for the patient to be transferred to a regular medical floor today, and we'll continue same treatment measures. Prognosis again is extremely poor and guarded. Time with Patient: Less than 30
[2018-10-01] MEDS: BISACODYL 10 MG SUPP RECTAL PRN (16:24)
[2018-10-01] MEDS: DILTIAZEM 125 MG in SODIUM CHLORIDE 0.9% 100 ML IV SCH (16:25)
[2018-10-01 18:17] LABS: Glucose,Whole Blood 117 mg/dL (75-99)
[2018-10-01] MEDS: FAT EMULSION 20% 250 ML in EMPTY BAG 1 BAG IV SCH (19:00)
--- NOTE | 2018-10-01 20:22 | PN ---
PROGRESS NOTE DATE OF SERVICE: 10/01/2018 This 82-year-old gentleman who was admitted with bilateral multilobar aspiration pneumonia also had acute hypoxic respiratory failure. Patient also has a blocked PEG tube at this time. Surgery is planning re-insertion in the near future. Otherwise, the patient is being closely monitored. The patient also had minimal IV access. Patient also had a midline on the right upper arm. Dr. Starkey is following the patient closely along with Surgery as well as Infectious Disease. The urine culture showed pseudomonas. Sputum culture showed Rosalie albicans and E coli also. Bronchial washings also confirmed Rosalie albicans. Past medical history reviewed. Review of systems could not be taken; the patient is stuporous. CURRENT MEDICATIONS: Reviewed. They include: 1. DuoNeb q.i.d. and p.r.n. 2. Artificial Tears. 3. Dulcolax. 4. Vitamin D3. 5. Cardizem. 6. Lovenox. 7. Fat emulsion TPN. 8. Apresoline. 9. Synthroid. 10.Imodium. 11.Meropenem. 12.Multivitamins. 13.Paxil. 14.P.r.n. medications. PHYSICAL EXAMINATION: Patient is stuporous. Pulse 89, blood pressure 127/75, respiration 18, temperature is 97.5, pulse ox 94% on 3 L. HEENT: Conjunctivae normal. Oral mucosa moist. NECK: No jugular venous distention. No carotid bruit. No lymph node enlargement. CARDIOVASCULAR SYSTEM: S1, S2 muffled. RESPIRATORY SYSTEM: Breath sounds diminished at the bases. Bilateral scattered rhonchi and crackles. ABDOMEN: Soft, non-tender. No mass palpable. LEGS: No edema. No swelling. NERVOUS SYSTEM: Unchanged. Contractures. Could not be examined. LABS: WBC 4.6, hemoglobin 8.8, and sodium 138, potassium 3.9. Accu-Cheks noted. ASSESSMENT: 1. Bilateral multilobar aspiration pneumonia, status post bronchoscopy with mucus plug removal. 2. Acute hypoxic respiratory failure requiring high-flow oxygen, down to nasal cannula. 3. Pseudomonas aeruginosa from the urine and rosalie and Escherichia coli from the sputum. 4. Essential hypertension. 5. Chronic quadriplegia with residual function in the right upper extremity at baseline. 6. Chronic neurogenic bladder with chronic suprapubic catheter. 7. Acute Coumadin toxicity, reversed with vitamin K. 8. Acute urinary tract infection secondary to suprapubic catheter. 9. Acute metabolic encephalopathy from above, with significant improvement. 10.Peripheral neuropathy. 11.Paroxysmal atrial fibrillation, currently in normal sinus rhythm. 12.Malnutrition, mild to moderate, status post PEG tube insertion. 13.PEG tube blockage. 14.FULL CODE. RECOMMENDATIONS AND DISCUSSION: I recommend to continue current medications, continue with the monitoring, symptomatic treatment. Otherwise at this time continue the broad-spectrum IV antibiotics. Closely follow with Surgery. Continue with bronchodilators. Repeat labs. Continue with TPN, Cardizem. Patient is also on Cardizem drip. Guarded prognosis because of multiple complex medical issues. Further recommendations to follow. See orders for further details. MMODL / IJN: [id number] / MTDD
[2018-10-01 23:44] LABS: Glucose,Whole Blood 126 mg/dL (75-99)
--- NOTE | 2018-10-02 00:02 | PN ---
PROGRESS NOTE DATE OF SERVICE: 09/30/2018. REASON FOR FOLLOWUP: Pseudomonas urinary tract infection, aspiration pneumonia. INTERVAL HISTORY: The patient is currently afebrile. The patient is hemodynamically stable, not on pressor support. No nausea or vomitin reported by the nursing staff. The patient himself did answer to his name but could not provide any history afterward. PHYSICAL EXAMINATION: Blood pressure 154/64 with a pulse of 85, temperature 98.1, he is 97% on 2 L nasal cannula. GENERAL DESCRIPTION: An elderly male lying in bed in no distress. RESPIRATORY SYSTEM: Unlabored breathing. Decreased breath sounds in the bases, no wheeze. HEART: S1 and S2 regular rate and rhythm. LABS: Hemoglobin 8.2, white count of 4.7, BUN of 34, creatinine 0.74. DIAGNOSTIC IMPRESSION AND PLAN: Patient with pseudomonas urinary tract infection with aspiration pneumonia. The patient is currently covered with meropenem because of multiple antibiotic allergies. We will continue to monitor the patient's clinical course closely and continue supportive care. MMODL / IJN: [id number] /
[2018-10-02] MEDS: INSULIN ASPART (NovoLOG) 100 UNIT/ML VIAL SQ SCH ×4 (00:22→21:06)
[2018-10-02] MEDS: MEROPENEM 1 GM in SODIUM CHLORIDE 0.9% 100 ML IVPB SCH ×3 (00:25→17:31)
[2018-10-02] MEDS: DEXTROSE 5%-0.9% NACL 1,000 ML IV SCH (03:18)
[2018-10-02] MEDS: DILTIAZEM 125 MG in SODIUM CHLORIDE 0.9% 100 ML IV SCH ×2 (03:18→21:19)
[2018-10-02 05:56] LABS: Basophils % (A) 0 %; Eosinophils # (A) 0.1 k/uL (0-0.7); Eosinophils % (A) 2 %; HGB 8.8 gm/dL (13.0-17.5); Hypochromasia Moderate; Lymphocytes # (A) 0.7 k/uL (1.0-4.8); Lymphocytes % (A) 18 %; MCH 34.1 pg (25.0-35.0); MCHC 33.7 g/dL (31.0-37.0); MCV 101.2 fL (80.0-100.0); Macrocytosis Slight; Mean Platelet Volume 8.1; Monocytes # (A) 0.3 k/uL (0-1.0); Monocytes % (A) 8 %; Neutrophils # (A) 2.6 k/uL (1.3-7.7); Neutrophils % (A) 69 %; Platelet Count 247 k/uL (150-450); RBC 2.57 m/uL (4.30-5.90); RDW 15.4 % (11.5-15.5); WBC 3.7 k/uL (3.8-10.6)
[2018-10-02 05:56] LABS: Glucose,Whole Blood 110 mg/dL (75-99)
[2018-10-02 06:16] LABS: Glucose,Whole Blood 113 mg/dL (75-99)
[2018-10-02 06:25] LABS: Anion Gap 4 mmol/L; Blood Urea Nitrogen 33 mg/dL (9-20); Carbon Dioxide 31 mmol/L (22-30); Chloride 102 mmol/L (98-107); Glucose 102 mg/dL (74-99); Phosphorus 2.5 mg/dL (2.5-4.5); Potassium 3.6 mmol/L (3.5-5.1); Sodium 137 mmol/L (137-145)
[2018-10-02] MEDS: IPRATROPIUM-ALBUTEROL 3 ML NEB INHALATION SCH ×4 (07:34→20:25)
[2018-10-02] MEDS: POTASSIUM CHLORIDE 10 MEQ in WATER FOR INJECTION 1 100ML.BAG IVPB SCH ×2 (08:18→12:29)
[2018-10-02] MEDS: ENOXAPARIN 80 MG/0.8 ML SYRINGE SQ SCH ×2 (11:46→21:08)
[2018-10-02] MEDS: LEVOTHYROXINE IVP 100 MCG/5 ML VIAL IV SCH (11:47)
[2018-10-02] MEDS: PANTOPRAZOLE 40 MG/10 ML VIAL IVP SCH (11:47)
[2018-10-02] MEDS: MULTIVITAMINS, THERA 1 EACH TAB PO SCH (11:53)
[2018-10-02] MEDS: guaiFENesin 600 MG TABLET.ER PO SCH ×2 (11:53→20:59)
[2018-10-02] MEDS: CHOLECALCIFEROL 400 UNIT TAB PO SCH (11:53)
[2018-10-02] MEDS: FUROSEMIDE 10 MG/ML 2 ML VIAL IV SCH ×2 (11:53→21:06)
[2018-10-02] MEDS: BISACODYL 10 MG SUPP RECTAL SCH (11:56)
[2018-10-02 12:05] LABS: Glucose,Whole Blood 105 mg/dL (75-99)
--- NOTE | 2018-10-02 13:45 | P.PN ---
Subjective Progress Note Date: 10/02/18 Principal diagnosis: Acute pseudomonas aeruginosa urinary tract infection and multilobar pneumonia This is an 82-year-old white male, known history of quadriplegia, admitted on , main admitting diagnosis was sepsis, acute hypoxic respiratory failure, aspiration pneumonia, Pseudomonas urinary tract infection, electrolytes imbalance, coagulopathy and thrombocytopenia. His blood cultures have been negative since admission, his urine cultures were positive for pseudomonas aeruginosa sputum cultures positive for Rosalie albicans and E. coli. Patient was seen by Dr. Rivas on consultation, and he was treated with Merrem, he underwent a bronchoscopy and bronchoalveolar lavage, and it was eventually recommended that the patient needs a PEG tube placement. Dr. lópez saw the patient on consultation, and he underwent a trial of PEG tube placement, however numerous attempts were made and esophagus could not be intubated. Then it was the recommendation of undergoing surgical approach for a PEG tube placement and this would be done today by Dr. Christian. I saw the patient today in the ICU, he looks very comfortable, he is on 2 L nasal cannula, in no distress, he seems quite edematous and I believe that's probably because of his poor nutritional status, and hypoalbuminemia. Patient is on TPN for nutritional support. He is also on antibiotics for UTI and pneumonia. Labs were reviewed had a relatively normal electrolytes, normal renal profile, hemoglobin is 7.6. WBC count is 3.2. His last chest x-ray from 09/25 showed cardiomegaly and small pleural effusions, and bilateral airspace disease. Patient was reevaluated today on 09/28/2018, patient remains in the ICU, he underwent open gastrostomy tube placement yesterday by Dr. Christian. The procedure went fine, patient remains in the ICU, and the tube is yet to be used today. Patient is feeling fine, does not seem to be in any distress. He still on antibiotics for multilobar pneumonia and he is also on antibiotics for pseudomonal Urinary tract infection. Patient had normal labs including basic metabolic profile. His hemoglobin remains low at 7.2, it was 8.32 days ago, and it was 7.6 yesterday. Patient is comfortable, he is not in any distress, and he is hemodynamically stable. Reevaluated today on 09/29/2018, remains in the ICU, having issues with the patency of the PEG tube, surgery is to address that issue today. Could not be used yet for feeding, hopefully the issue will be fixed by later today then we can start enteral feeding on this patient, and eventually discontinue TPN. Clinically however the patient is about the same, remains on TPN, remains on antibiotics for his multilobar pneumonia, and remains on antibiotics for his pseudomonal urinary tract infection. Hemoglobin is holding at 7.1. Elective lites are normal renal profile is normal. No chest x-ray was done today. Chest x-ray from yesterday was reviewed. Reevaluated today on 09/30/2018, patient is still in the ICU, still on TPN, remains on antibiotics, his overall condition is about the same. We are however having issues with his PEG tube which seems to be plugged, and multiple attempts were made by the surgeon to unplug the PEG tube, but all trials have failed. Discussed that with the surgeon, I believe he is planning to take him back to the operating room early next week. In the meantime we are keeping the patient on TPN. Keeping him on all the present supportive care measures and all ant ibiotics, patient is extremely frail, he is paraplegic, and I have a strong feeling that his prognosis is going to be extremely poor considering his overall condition. His hemoglobin today was noted to be low at 6.6, and I have recommended a blood transfusion with 1 unit of packed RBCs. His electrolytes are normal except for low potassium being corrected as per protocol. Chest x- ray today showed definite improvement in his right upper lobe infiltrate and left lower lobe infiltrate, but not completely resolved. Patient was reevaluated today on 10/01/2018, remains in the ICU, remains on TPN, remains on few liters nasal cannula, and he remains on multiple antibiotics for his pneumonia and urinary tract infection.and his hemoglobin is up to 8.8, did receive 3 units of packed RBCs yesterday. Electrolytes and renal profile are normal, CBC is relatively unremarkable. No chest x-ray was done. We continue to have problems with the blockage of the PEG tube, multiple attempts have failed to unplug it. Patient may require surgical intervention and again next week. Patient was reevaluated today on , remains in the ICU, on TPN, on few liters nasal cannula, on antibiotics, and we still have issue with his PEG tube. Dr. Christian is planning to replace it next week. He may do this at bedside. Chest x-ray continues to show right upper lobe infiltrate, and left lower lobe consolidation. All labs were reviewed. Patient remains on TPN for the time being. Objective - Vital Signs Vital signs: Vital Signs Temp 98.4 F 10/02/18 08:00 Pulse 80 10/02/18 12:00 Resp 18 10/02/18 12:00 BP 121/72 10/02/18 12:00 Pulse Ox 97 10/02/18 12:00 Intake & Output 10/01/18 10/02/18 10/02/18 18:59 06:59 18:59 Intake Total 2219.5837 2139.000 316 Output Total 1085 1330 95 Balance 1134.5837 809.000 221 Weight 69.3 kg 69.9 kg Intake: IV 1050 1167 316 Dextrose 5%-0.9% NaCl 1, 200 200 000 ml @ 20 mls/hr IV . Q24H MERRY Rx#:[id number] Fat Emulsion 20% 250 ml 252 21 In Empty Bag 1 bag @ 21 mls/hr IV [id number] MERRY Rx#:[id number] Meropenem 1 gm In Sodium 200 Chloride 0.9% 100 ml @ 200 mls/hr IVPB Q8HR MERRY Rx#:[id number] Potassium Chloride 10 meq 100 In Water For Injection 1 100ml.bag @ 100 mls/hr IVPB Q1HR MERRY Rx#: [id number] Potassium Phosphate 15 650 mmol Mvi, Adult No.4 with Vit K 10 ml Trace (Conc- 1Ml/Dose) 1 ml Sodium Acetate 30 meq Magnesium Sulfate gm 1 gm Calcium Gluconate 1 gm In Amino Acid 5%-D15w 1,000 ml @ 65 mls/hr IV .BY DURATION MERRY Rx#:[id number] Potassium Phosphate 20 715 195 mmol Mvi, Adult No.4 with Vit K 10 ml Trace (Conc- 1Ml/Dose) 1 ml Sodium Acetate 30 meq Magnesium Sulfate gm 1 gm Calcium Gluconate 1 gm Potassium Chloride 10 meq In Amino Acid 5%-D15w 1,000 ml @ 65 mls/hr IV .BY DURATION MERRY Rx#:[id number] Intake, IV Titration 1169.5837 972.000 Amount Diltiazem 125 mg In 119.917 54.417 Sodium Chloride 0.9% 100 ml @ 5 MG/HR 5 mls/hr IV .Q24H MERRY Rx#:[id number] Potassium Phosphate 20 1049.6667 917.583 mmol Mvi, Adult No.4 with Vit K 10 ml Trace (Conc- 1Ml/Dose) 1 ml Sodium Acetate 30 meq Magnesium Sulfate gm 1 gm Calcium Gluconate 1 gm Potassium Chloride 10 meq In Amino Acid 5%-D15w 1,000 ml @ 65 mls/hr IV .BY DURATION MERRY Rx#:[id number] Output: Urine 1085 1330 95 Other: Voiding Method Indwelling Catheter Indwelling Catheter # Bowel Movements 1 - Exam Physical Exam: Revealed an 82-year-old white male paraplegic, on few liters nasal cannula, in no distress. Head: Atraumatic, normocephalic, dry mucous membranes noted. HEENT:[Neck is supple.] [No neck masses.] [No thyromegaly.] [No JVD.] PERRLA, EOMI, no icterus, dry mucous membranes noted. Chest: [Crackles and rhonchi at the bases, symmetrical chest expansion, no chest wall tenderness.] Cardiac Exam: [Irregular irregular rhythm Normal S1 and S2, no S3 gallop, no murmur.] Abdomen: [Soft, nontender, no megaly, no rebound, no guarding, normal bowel sounds.] Edematous abdominal wall is noted. PEG tube site is intact and clean. However the PEG tube remains plugged. Extremities: [No clubbing, 2+ bipedal edema, no cyanosis. No calf tenderness. Neurological Exam: Paraplegic, otherwise [No focal neurologic deficit.] Patient is nonverbal, communicates by nodding his head. Flexion contractures and atrophy of lower extremities noted.. Lymphatics: No lymphadenopathy. Skin: No rashes - Labs CBC & Chem 7: 10/02/18 05:43 10/02/18 05:43 Labs: Abnormal Lab Results - Last 24 Hours (Table) 09/30/18 10/01/18 10/01/18 Range/Units 16:20 18:16 23:42 WBC (3.8-10.6) k/uL RBC (4.30-5.90) m/uL Hgb (13.0-17.5) gm/dL Hct (39.0-53.0) % MCV (80.0-100.0) fL Lymphocytes # (1.0-4.8) k/uL Carbon Dioxide (22-30) mmol/L BUN (9-20) mg/dL Glucose (74-99) mg/dL POC Glucose (mg/dL) 117 H 126 H (75-99) mg/dL Calcium (8.4-10.2) mg/dL RBC Folate 1,034 H (280 - 791) ng/mL 10/02/18 10/02/18 10/02/18 Range/Units 05:43 05:43 05:55 WBC 3.7 L (3.8-10.6) k/uL RBC 2.57 L (4.30-5.90) m/uL Hgb 8.8 L (13.0-17.5) gm/dL Hct 26.0 L (39.0-53.0) % MCV 101.2 H (80.0-100.0) fL Lymphocytes # 0.7 L (1.0-4.8) k/uL Carbon Dioxide 31 H (22-30) mmol/L BUN 33 H (9-20) mg/dL Glucose 102 H (74-99) mg/dL POC Glucose (mg/dL) 110 H (75-99) mg/dL Calcium 8.0 L (8.4-10.2) mg/dL RBC Folate (280 - 791) ng/mL 10/02/18 10/02/18 Range/Units 06:14 12:03 WBC (3.8-10.6) k/uL RBC (4.30-5.90) m/uL Hgb (13.0-17.5) gm/dL Hct (39.0-53.0) % MCV (80.0-100.0) fL Lymphocytes # (1.0-4.8) k/uL Carbon Dioxide (22-30) mmol/L BUN (9-20) mg/dL Glucose (74-99) mg/dL POC Glucose (mg/dL) 113 H 105 H (75-99) mg/dL Calcium (8.4-10.2) mg/dL RBC Folate (280 - 791) ng/mL Assessment and Plan Assessment: Impression: 1 acute hypoxic respiratory failure secondary to pneumonia, most likely aspiration pneumonia unless for otherwise. His sputum cultures have been positive for E. coli and for Rosalie albicans. 2 acute urinary tract infection secondary to pseudomonas aeruginosa 3 hyponatremia on presentation, resolved since admission. 4 supra pubic catheter for recurrent urinary tract infection 5 quadriplegia secondary to previous cervical fracture 6 previous history of deep vein thrombosis maintained on long term care social worker anticoagulation therapy 7 failed the swallow evaluation, patient is scheduled for PEG tube placement surgically today since previous attempts to do it under IV conscious sedation failed. 8 paroxysmal atrial fibrillation, 9 Coumadin toxicity on admission, resolved 10 history of hypertension 11 history of hypothyroidism 12 plugged PEG tube, multiple attempts to unplug the PEG tube have failed. May require surgery again. And his tube replacement in the meantime continue TPN per 12 status post open gastrostomy tube placement and repair of incisional hernia postoperative day #6 however the PEG tube seems to be nonfunctional at this point, may require replacement. Recommendation: continue antibiotics, TPN, bronchodilators, GI and DVT prophylaxis, patient has demonstrated significant stability in the ICU over the last 1 week, and I would likely arrange for the patient to be transferred to a regular medical floor today, and we'll continue same treatment measures. Prognosis again is extremely poor and guarded. Time with Patient: Less than 30
--- NOTE | 2018-10-02 14:05 | XR ---
EXAMINATION TYPE: XR chest 1V portable DATE OF EXAM: 10/02/2018 HISTORY: pnm. REFERENCE: Previous study dated 09/30/2018. FINDINGS: There continues to be the left lower lobe infiltrate. There is a worsening right upper lobe infiltrate. There is a small left effusion and a smaller right effusion. Heart size is upper limits of normal. IMPRESSION: BILATERAL INFILTRATES, WORSENING ON THE RIGHT WITH ASSOCIATED SMALL, BILATERAL EFFUSIONS.
--- NOTE | 2018-10-02 17:36 | PN ---
PROGRESS NOTE DATE OF SERVICE: 10/02/2018 DATE OF SERVICE: This 82-year-old gentleman who was admitted with bilateral multilobar aspiration pneumonia, bronchoscopy and had bronchoscopy mucous plug removal. The patient had acute hypoxic respiratory. Patient continues to be barely responsive at this time. PEG tube is still blocked and being evaluated by Surgery for possible replacement. The patient also had multiple antibiotics. The patient is also on PPN. PAST MEDICAL HISTORY: Reviewed. REVIEW OF SYSTEM: Could not be taken, the patient is stuporous. CURRENT MEDICATIONS: Reviewed and include: 1. DuoNeb q.i.d. and p.r.n. 2. Artificial tears. 3. Dulcolax. 4. Vitamin D3. 6. Cardizem drip. 7. Please also note the patient is on IV Cardizem drip. 8. PPN. 9. Apresoline. 10.Mucinex. 11.NovoLog. 12.Synthroid. 13.Imodium. 14.Meropenem. 15.P.r.n. medications. PHYSICAL EXAM: Patient is stuporous. Pulse 78, blood pressure 120/66, respirations 16, temperature is normal. Pulse ox 100 percent on 3 L nasal cannula. HEENT: Conjunctivae normal. Oral mucosa moist. Neck is no jugular venous distention. No carotid bruit. No lymph node enlargement. Cardiovascular systems: S1, S2 muffled. Respiration: Breath sounds diminished in the bases. No rhonchi. No crackles. ABDOMEN: Soft. PEG tube in situ. Blocked and malfunctioning. No mass palpable. Legs: No edema. No swelling. Central nervous system: Could not be examined. Diffuse weak. SKIN: No ulcer, rash or bleeding. LABORATORY DATA: WBC 3.2, hemoglobin is 8.8. Glucose noted. ASSESSMENT: 1. Bilateral multilobar aspiration pneumonia, status post bronchoscopy and mucous plug removal. 2. Acute hypoxic respiratory failure requiring high-flow oxygen, down to nasal cannula. 3. Pseudomonas aeruginosa in the urine and lauren E coli from the sputum. 4. On PPN. 5. Essential hypertension. 6. Malfunctioning blocked PEG tube. 7. Chronic quadriplegia with residual function in the right upper extremity baseline. 8. Chronic neurogenic bladder with chronic suprapubic catheter. 9. Acute Coumadin toxicity, resolved with vitamin K. 10.Acute urinary tract infection with secondary to suprapubic catheter. 11.Acute metabolic encephalopathy from above with significant improvement. 12.Peripheral neuropathy. 13.Paroxysmal atrial fibrillation. Currently normal sinus rhythm. 14.Malnutrition [id number] status post PEG tube insertion. 15.FULL CODE. RECOMMENDATIONS AND DISCUSSION: In this 82-year-old gentleman who presented with multiple complex medical issues. We will continue to monitor, continue symptomatic treatment. Continue with PPN. Monitor electrolytes closely. Otherwise await surgical evaluation. Continue the rest of medications. Monitor fluid and electrolyte balance closely. Prognosis guarded because of multiple complex medical issues. Discussed with staff. Further recommendations to follow. MMODL / IJN: [id number] / MTDD
[2018-10-02 21:07] LABS: Glucose,Whole Blood 101 mg/dL (75-99)
[2018-10-02 23:57] LABS: Glucose,Whole Blood 116 mg/dL (75-99)
[2018-10-03] MEDS: INSULIN ASPART (NovoLOG) 100 UNIT/ML VIAL SQ SCH ×4 (02:37→18:15)
[2018-10-03] MEDS: MEROPENEM 1 GM in SODIUM CHLORIDE 0.9% 100 ML IVPB SCH ×3 (02:48→17:17)
[2018-10-03 05:48] LABS: HCT 26.7 % (39.0-53.0); HGB 8.6 gm/dL (13.0-17.5); Hypochromasia Moderate; MCH 32.8 pg (25.0-35.0); MCHC 32.1 g/dL (31.0-37.0); MCV 102.1 fL (80.0-100.0); Macrocytosis Slight; Mean Platelet Volume 8.2; Platelet Count 211 k/uL (150-450); RBC 2.61 m/uL (4.30-5.90); RDW 15.7 % (11.5-15.5); WBC 3.2 k/uL (3.8-10.6)
[2018-10-03 05:57] LABS: Glucose,Whole Blood 110 mg/dL (75-99)
[2018-10-03 06:01] LABS: Anion Gap 4 mmol/L; Blood Urea Nitrogen 33 mg/dL (9-20); Calcium 8.1 mg/dL (8.4-10.2); Carbon Dioxide 31 mmol/L (22-30); Chloride 103 mmol/L (98-107); Glucose 105 mg/dL (74-99); Phosphorus 2.9 mg/dL (2.5-4.5); Potassium 4.2 mmol/L (3.5-5.1); Sodium 138 mmol/L (137-145)
[2018-10-03 06:23] LABS: Band Neutrophils % 1 %; Eosinophils # (M) 0.06 k/uL (0-0.7); Lymphocytes # (M) 0.61 k/uL (1.0-4.8); Monocytes # (M) 0.45 k/uL (0-1.0); Neutrophils % (M) 64 %; Nucleated Red Blood Cells 0 /100 WBC (0-0); Total Cells Counted 100
[2018-10-03] MEDS: DEXTROSE 5%-0.9% NACL 1,000 ML IV SCH (06:37)
[2018-10-03] MEDS: IPRATROPIUM-ALBUTEROL 3 ML NEB INHALATION SCH ×4 (09:41→20:35)
[2018-10-03] MEDS: MULTIVITAMINS, THERA 1 EACH TAB PO SCH (09:48)
[2018-10-03] MEDS: CHOLECALCIFEROL 400 UNIT TAB PO SCH (09:48)
[2018-10-03] MEDS: guaiFENesin 600 MG TABLET.ER PO SCH ×2 (09:48→20:44)
[2018-10-03] MEDS: PANTOPRAZOLE 40 MG/10 ML VIAL IVP SCH (10:15)
[2018-10-03] MEDS: ENOXAPARIN 80 MG/0.8 ML SYRINGE SQ SCH ×2 (10:15→18:29)
[2018-10-03] MEDS: FUROSEMIDE 10 MG/ML 2 ML VIAL IV SCH ×2 (10:15→20:47)
[2018-10-03] MEDS: LEVOTHYROXINE IVP 100 MCG/5 ML VIAL IV SCH (10:15)
[2018-10-03] MEDS: BISACODYL 10 MG SUPP RECTAL SCH (10:16)
[2018-10-03 12:07] LABS: Glucose,Whole Blood 115 mg/dL (75-99)
[2018-10-03] MEDS ORDERED: FUROSEMIDE 10 MG/ML 2 ML VIAL IV ONE (13:49)
--- NOTE | 2018-10-03 14:10 | XR ---
EXAMINATION TYPE: XR chest 1V portable DATE OF EXAM: 10/03/2018 COMPARISON: Yesterday HISTORY: Short of breath TECHNIQUE: Single frontal view of the chest is obtained. FINDINGS: There is patchy infiltrate in the right and left lung as well as subsegmental atelectasis at the lung bases. Heart is enlarged. Thoracic aorta is atheromatous. There are chest leads. Bony tho rax is intact. There is no heart failure. IMPRESSION: Patchy bilateral pulmonary infiltrates and atelectasis appears slightly worse than yeste rday.
--- NOTE | 2018-10-03 14:22 | P.PN ---
Subjective Progress Note Date: 10/03/18 Principal diagnosis: Acute pseudomonas aeruginosa urinary tract infection and multilobar pneumonia This is an 82-year-old white male, known history of quadriplegia, admitted on , main admitting diagnosis was sepsis, acute hypoxic respiratory failure, aspiration pneumonia, Pseudomonas urinary tract infection, electrolytes imbalance, coagulopathy and thrombocytopenia. His blood cultures have been negative since admission, his urine cultures were positive for pseudomonas aeruginosa sputum cultures positive for Rosalie albicans and E. coli. Patient was seen by Dr. Rivas on consultation, and he was treated with Merrem, he underwent a bronchoscopy and bronchoalveolar lavage, and it was eventually recommended that the patient needs a PEG tube placement. Dr. lópez saw the patient on consultation, and he underwent a trial of PEG tube placement, however numerous attempts were made and esophagus could not be intubated. Then it was the recommendation of undergoing surgical approach for a PEG tube placement and this would be done today by Dr. Christian. I saw the patient today in the ICU, he looks very comfortable, he is on 2 L nasal cannula, in no distress, he seems quite edematous and I believe that's probably because of his poor nutritional status, and hypoalbuminemia. Patient is on TPN for nutritional support. He is also on antibiotics for UTI and pneumonia. Labs were reviewed had a relatively normal electrolytes, normal renal profile, hemoglobin is 7.6. WBC count is 3.2. His last chest x-ray from 09/25 showed cardiomegaly and small pleural effusions, and bilateral airspace disease. Patient was reevaluated today on 09/28/2018, patient remains in the ICU, he underwent open gastrostomy tube placement yesterday by Dr. Christian. The procedure went fine, patient remains in the ICU, and the tube is yet to be used today. Patient is feeling fine, does not seem to be in any distress. He still on antibiotics for multilobar pneumonia and he is also on antibiotics for pseudomonal Urinary tract infection. Patient had normal labs including basic metabolic profile. His hemoglobin remains low at 7.2, it was 8.32 days ago, and it was 7.6 yesterday. Patient is comfortable, he is not in any distress, and he is hemodynamically stable. Reevaluated today on 09/29/2018, remains in the ICU, having issues with the patency of the PEG tube, surgery is to address that issue today. Could not be used yet for feeding, hopefully the issue will be fixed by later today then we can start enteral feeding on this patient, and eventually discontinue TPN. Clinically however the patient is about the same, remains on TPN, remains on antibiotics for his multilobar pneumonia, and remains on antibiotics for his pseudomonal urinary tract infection. Hemoglobin is holding at 7.1. Elective lites are normal renal profile is normal. No chest x-ray was done today. Chest x-ray from yesterday was reviewed. Reevaluated today on 09/30/2018, patient is still in the ICU, still on TPN, remains on antibiotics, his overall condition is about the same. We are however having issues with his PEG tube which seems to be plugged, and multiple attempts were made by the surgeon to unplug the PEG tube, but all trials have failed. Discussed that with the surgeon, I believe he is planning to take him back to the operating room early next week. In the meantime we are keeping the patient on TPN. Keeping him on all the present supportive care measures and all ant ibiotics, patient is extremely frail, he is paraplegic, and I have a strong feeling that his prognosis is going to be extremely poor considering his overall condition. His hemoglobin today was noted to be low at 6.6, and I have recommended a blood transfusion with 1 unit of packed RBCs. His electrolytes are normal except for low potassium being corrected as per protocol. Chest x- ray today showed definite improvement in his right upper lobe infiltrate and left lower lobe infiltrate, but not completely resolved. Patient was reevaluated today on 10/01/2018, remains in the ICU, remains on TPN, remains on few liters nasal cannula, and he remains on multiple antibiotics for his pneumonia and urinary tract infection.and his hemoglobin is up to 8.8, did receive 3 units of packed RBCs yesterday. Electrolytes and renal profile are normal, CBC is relatively unremarkable. No chest x-ray was done. We continue to have problems with the blockage of the PEG tube, multiple attempts have failed to unplug it. Patient may require surgical intervention and again next week. Patient was reevaluated today on 10/02/2018, remains in the ICU, on TPN, on few liters nasal cannula, on antibiotics, and we still have issue with his PEG tube. Dr. Christian is planning to replace it next week. He may do this at bedside. Chest x-ray continues to show right upper lobe infiltrate, and left lower lobe consolidation. All labs were reviewed. Patient remains on TPN for the time being. Reevaluated today on 10/03/2018, patient remains in the ICU, remains on TPN, however last night he desaturated, placed on a nonrebreather mask, and seems to be doing better this morning. His chest x-ray showed the same findings, mostly right upper lobe infiltrate, and left lower lobe consolidation basically about the same. Patient remains on antibiotics, remains on TPN, and was still have issue with his PEG tube being occluded, surgery is planning to replace tomorrow. I did increase the Lasix dose on this patient since he seems to be quite swollen and edematous today. Objective - Vital Signs Vital signs: Vital Signs Temp 98.3 F 10/03/18 12:00 Pulse 89 10/03/18 12:25 Resp 18 10/03/18 12:00 BP 125/65 10/03/18 12:00 Pulse Ox 99 10/03/18 12:00 Intake & Output 10/02/18 10/03/18 10/03/18 18:59 06:59 18:59 Intake Total 1101 1090.083 376 Output Total 1720 1065 375 Balance -619 25.083 1 Weight 69.9 kg 70.9 kg Intake: IV 1001 1000 376 Dextrose 5%-0.9% NaCl 1, 220 60 000 ml @ 20 mls/hr IV . Q24H [facility] Rx#:[id number] Fat Emulsion 20% 250 ml 21 21 In Empty Bag 1 bag @ 21 mls/hr IV [id number] [facility] Rx#:[id number] Meropenem 1 gm In Sodium 100 100 Chloride 0.9% 100 ml @ 200 mls/hr IVPB Q8HR [facility] Rx#:[id number] Potassium Chloride 10 meq 100 In Water For Injection 1 100ml.bag @ 100 mls/hr IVPB Q1HR [facility] Rx#: [id number] Potassium Phosphate 20 780 780 195 mmol Mvi, Adult No.4 with Vit K 10 ml Trace (Conc- 1Ml/Dose) 1 ml Sodium Acetate 30 meq Magnesium Sulfate gm 1 gm Calcium Gluconate 1 gm Potassium Chloride 10 meq In Amino Acid 5%-D15w 1,000 ml @ 65 mls/hr IV .BY DURATION [facility] Rx#:[id number] Intake, IV Titration 100 90.083 Amount Diltiazem 125 mg In 90.083 Sodium Chloride 0.9% 100 ml @ 5 MG/HR 5 mls/hr IV .Q24H [facility] Rx#:[id number] Potassium Chloride 10 meq 100 In Water For Injection 1 100ml.bag @ 100 mls/hr IVPB Q1H [facility] Rx#: [id number] Output: Urine 1720 1065 375 Other: Voiding Method Indwelling Catheter Indwelling Catheter - Exam Physical Exam: Revealed an 82-year-old white male paraplegic, on a nonrebreather mask O2 saturation is 100% hence will transition to a Ventimask or possibly to a high flow nasal cannula Head: Atraumatic, normocephalic, dry mucous membranes noted. HEENT:[Neck is supple.] [No neck masses.] [No thyromegaly.] [No JVD.] PERRLA, EOMI, no icterus, dry mucous membranes noted. Chest: [Crackles and rhonchi at the bases, symmetrical chest expansion, no chest wall tenderness.] Cardiac Exam: [Irregular irregular rhythm Normal S1 and S2, no S3 gallop, no murmur.] Abdomen: [Soft, nontender, no megaly, no rebound, no guarding, normal bowel sounds.] Edematous abdominal wall is noted. PEG tube site is intact and clean. However the PEG tube remains plugged. Extremities: [No clubbing, 2+ bipedal edema, no cyanosis. No calf tenderness. Neurological Exam: Paraplegic, otherwise [No focal neurologic deficit.] Patient is nonverbal, communicates by nodding his head. Flexion contractures and atrophy of lower extremities noted.. Lymphatics: No lymphadenopathy. Skin: No rashes - Labs CBC & Chem 7: 10/03/18 05:13 10/03/18 05:13 Labs: Abnormal Lab Results - Last 24 Hours (Table) 10/02/18 10/02/18 10/03/18 Range/Units 21:05 23:56 05:13 WBC 3.2 L (3.8-10.6) k/uL RBC 2.61 L (4.30-5.90) m/uL Hgb 8.6 L (13.0-17.5) gm/dL Hct 26.7 L (39.0-53.0) % MCV 102.1 H (80.0-100.0) fL RDW 15.7 H (11.5-15.5) % Lymphocytes # (Manual) 0.61 L (1.0-4.8) k/uL Carbon Dioxide (22-30) mmol/L BUN (9-20) mg/dL Glucose (74-99) mg/dL POC Glucose (mg/dL) 101 H 116 H (75-99) mg/dL Calcium (8.4-10.2) mg/dL 10/03/18 10/03/18 10/03/18 Range/Units 05:13 05:55 12:05 WBC (3.8-10.6) k/uL RBC (4.30-5.90) m/uL Hgb (13.0-17.5) gm/dL Hct (39.0-53.0) % MCV (80.0-100.0) fL RDW (11.5-15.5) % Lymphocytes # (Manual) (1.0-4.8) k/uL Carbon Dioxide 31 H (22-30) mmol/L BUN 33 H (9-20) mg/dL Glucose 105 H (74-99) mg/dL POC Glucose (mg/dL) 110 H 115 H (75-99) mg/dL Calcium 8.1 L (8.4-10.2) mg/dL Assessment and Plan Assessment: Impression: 1 acute hypoxic respiratory failure secondary to pneumonia, most likely aspiration pneumonia unless for otherwise. His sputum cultures have been positive for E. coli and for Rosalie albicans. 2 acute urinary tract infection secondary to pseudomonas aeruginosa 3 hyponatremia on presentation, resolved since admission. 4 supra pubic catheter for recurrent urinary tract infection 5 quadriplegia secondary to previous cervical fracture 6 previous history of deep vein thrombosis maintained on long-term anticoagulati on therapy 7 failed the swallow evaluation, patient is scheduled for PEG tube placement surgically today since previous attempts to do it under IV conscious sedation failed. 8 paroxysmal atrial fibrillation, 9 Coumadin toxicity on admission, resolved 10 history of hypertension 11 history of hypothyroidism 12 plugged PEG tube, multiple attempts to unplug the PEG tube have failed. May require surgery again. And his tube replacement in the meantime continue TPN per 12 status post open gastrostomy tube placement and repair of incisional hernia postoperative day #7 however the PEG tube seems to be nonfunctional at this point, may require replacement. Recommendation: continue antibiotics, TPN, bronchodilators, GI and DVT prophylaxis, patient has demonstrated significant stability in the ICU over the last 1 week, considering the patient desaturated last night and we're and he was switched to a nonrebreather mask, we'll continue to monitor in the ICU, Lasix was increased, patient will have his PEG tube addressed tomorrow by surgery, again overall long-term prognosis is extremely poor and guarded. I believe the CODE STATUS should be addressed with the legal guardian of this patient. Have not seen any family members the whole week. Time with Patient: Less than 30
[2018-10-03 18:07] LABS: Glucose,Whole Blood 123 mg/dL (75-99)
[2018-10-03] MEDS: DILTIAZEM 125 MG in SODIUM CHLORIDE 0.9% 100 ML IV SCH (20:46)
--- NOTE | 2018-10-03 20:52 | PN ---
PROGRESS NOTE DATE OF SERVICE: 10/03/2018 This 82-year-old gentleman who was admitted with multilobar pneumonia also had a possible aspiration pneumonia. The patient also has acute hypoxic respiratory failure. The patient has history of Pseudomonas in the urine and E coli from the sputum. Patient also on PPN. The PEG tubes cannot be used because of blockage. Dr. Christian is going to evaluate the PEG tube on Thursday. PAST MEDICAL HISTORY: Reviewed. REVIEW OF SYSTEMS: Could not be taken the patient, the patient is stuporous. CURRENT MEDICATIONS: 1. DuoNeb q.i.d. and p.r.n. 2. Artificial tears. 3. Dulcolax 10 mg p.r.n. 4. Vitamin D3 400 units daily. 5. Cardizem drip. 6. Lovenox 80 mg subcu b.i.d. 7. TPN. 8. Mucinex. 9. Apresoline. 10.Synthroid. 11.Imodium. 12.Meropenem 1 g IV q.8. 13.Replacement protocol. 14.Narcan. 15.Protonix. PHYSICAL EXAM: Patient is stuporous. Pulse 91. Blood pressure 118/70, respiration 17, temp 98.1. Pulse ox 100 percent on 4 L. HEENT is conjunctivae normal. Neck: No jugular venous distention. CARDIOVASCULAR: S1, S2 muffled. RESPIRATORY: Breath sounds diminished in the bases. Bilateral scattered rhonchi and crackles. Expiratory wheezing also present. ABDOMEN: Soft. PEG tube in situ, blocked. Nervous system: Diffusely weak. LABS: WBC 3.2, hemoglobin is 8.6, sodium 130, potassium 4.8. Accu-Cheks are noted. ASSESSMENT: 1. Bilateral multilobar aspiration pneumonia with possible sepsis status post bronchoscopy and mucous plug removal. 2. Acute hypoxic respiratory failure requiring high-flow oxygen down to nasal cannula. 3. Pseudomonas aeruginosa in the urine and lauren Escherichia coli from the sputum. 4. On PPN. 5. Essential hypertension. 6. Malfunction and blocked PEG tube. 7. Chronic quadriplegia with the residual function in the right upper and lower extremities baseline. 8. History of chronic neurogenic bladder with chronic suprapubic catheter. 9. Acute Coumadin toxicity, resolved with vitamin K. 10.Acute urinary tract infection with secondary to suprapubic catheter. 11.Acute metabolic encephalopathy from above with significant improvement. 12.Peripheral neuropathy. 13.Paroxysmal atrial fibrillation, currently normal sinus rhythm. 14.Malnutrition with mild to moderate protein calorie malnutrition, status post PEG tube insertion. 15.FULL CODE. RECOMMENDATIONS AND DISCUSSION: In this 82-year-old gentleman who presented with multiple complex medical issues, we will monitor the patient closely. Continue the current medications. The patient is on broad spectrum IV antibiotics. Continue the current medication, continue with symptomatic treatment. Continue the bronchodilators. Ensure oxygenation. Otherwise, I would also recommend surgical evaluation for the blocked PEG tube and reinsertion of PEG tube and initiate the PEG tube and some of the medications may be transitioned to the PEG tube at this time. Otherwise, the patient is still on IV diuretics. The patient is started on IV diuretics. The chest x-ray done today showed some pleural fluid and as well as evidence of continued pneumonia also. The prognosis is extremely guarded because of multiple complex medical issues. Further recommendations to follow. MMSAYL / TREVORN: [id number] /
[2018-10-04 00:06] LABS: Glucose,Whole Blood 122 mg/dL (75-99)
[2018-10-04] MEDS: MEROPENEM 1 GM in SODIUM CHLORIDE 0.9% 100 ML IVPB SCH ×3 (00:27→16:35)
[2018-10-04] MEDS: INSULIN ASPART (NovoLOG) 100 UNIT/ML VIAL SQ SCH ×4 (00:30→18:12)
[2018-10-04] MEDS: ACETAMINOPHEN IV (For NPO) 1,000 MG in EMPTY BAG 1 BAG IVPB PRN ×2 (04:48→17:32)
[2018-10-04 05:40] LABS: Glucose,Whole Blood 140 mg/dL (75-99)
[2018-10-04] MEDS: DEXTROSE 5%-0.9% NACL 1,000 ML IV SCH (06:11)
[2018-10-04 06:19] LABS: Basophils % (A) 0 %; Eosinophils % (A) 1 %; HCT 27.1 % (39.0-53.0); HGB 8.4 gm/dL (13.0-17.5); Hypochromasia Moderate; Lymphocytes # (A) 0.3 k/uL (1.0-4.8); Lymphocytes % (A) 7 %; MCH 31.5 pg (25.0-35.0); MCHC 30.9 g/dL (31.0-37.0); Macrocytosis Slight; Mean Platelet Volume 7.8; Monocytes # (A) 0.3 k/uL (0-1.0); Monocytes % (A) 7 %; Neutrophils % (A) 82 %; Platelet Count 202 k/uL (150-450); RBC 2.66 m/uL (4.30-5.90); RDW 15.1 % (11.5-15.5); WBC 3.6 k/uL (3.8-10.6)
[2018-10-04 06:31] LABS: Anion Gap 4 mmol/L; Blood Urea Nitrogen 35 mg/dL (9-20); Carbon Dioxide 32 mmol/L (22-30); Chloride 101 mmol/L (98-107); Glucose 122 mg/dL (74-99); Phosphorus 2.9 mg/dL (2.5-4.5); Potassium 3.9 mmol/L (3.5-5.1); Sodium 137 mmol/L (137-145)
[2018-10-04] MEDS: CHOLECALCIFEROL 400 UNIT TAB PO SCH (07:41)
[2018-10-04] MEDS: ENOXAPARIN 80 MG/0.8 ML SYRINGE SQ SCH ×2 (07:41→20:05)
[2018-10-04] MEDS: MULTIVITAMINS, THERA 1 EACH TAB PO SCH (07:41)
[2018-10-04] MEDS: guaiFENesin 600 MG TABLET.ER PO SCH (07:41)
[2018-10-04] MEDS: PANTOPRAZOLE 40 MG/10 ML VIAL IVP SCH (08:06)
[2018-10-04] MEDS: LEVOTHYROXINE IVP 100 MCG/5 ML VIAL IV SCH (08:06)
[2018-10-04] MEDS: FUROSEMIDE 10 MG/ML 2 ML VIAL IV SCH ×2 (08:06→20:05)
[2018-10-04] MEDS: BISACODYL 10 MG SUPP RECTAL SCH (08:07)
[2018-10-04] MEDS: IPRATROPIUM-ALBUTEROL 3 ML NEB INHALATION SCH ×4 (08:12→21:14)
--- NOTE | 2018-10-04 10:06 | P.PN ---
Subjective Progress Note Date: 10/04/18 Principal diagnosis: Acute pseudomonas aeruginosa urinary tract infection and multilobar pneumonia This is an 82-year-old white male, known history of quadriplegia, admitted on 09/18/2018, main admitting diagnosis was sepsis, acute hypoxic respiratory failure, aspiration pneumonia, Pseudomonas urinary tract infection, electrolytes imbalance, coagulopathy and thrombocytopenia. His blood cultures have been negative since admission, his urine cultures were positive for pseudomonas aeruginosa sputum cultures positive for Rosalie albicans and E. coli. Patient was seen by Dr. Rivas on consultation, and he was treated with Merrem, he underwent a bronchoscopy and bronchoalveolar lavage, and it was eventually recommended that the patient needs a PEG tube placement. Dr. lópez saw the patient on consultation, and he underwent a trial of PEG tube placement, however numerous attempts were made and esophagus could not be intubated. Then it was the recommendation of undergoing surgical approach for a PEG tube placement and this would be done today by Dr. Christian. I saw the patient today in the ICU, he looks very comfortable, he is on 2 L nasal cannula, in no distress, he seems quite edematous and I believe that's probably because of his poor nutritional status, and hypoalbuminemia. Patient is on TPN for nutritional support. He is also on antibiotics for UTI and pneumonia. Labs were reviewed had a relatively normal electrolytes, normal renal profile, hemoglobin is 7.6. WBC count is 3.2. His last chest x-ray from 09/25 showed cardiomegaly and small pleural effusions, and bilateral airspace disease. Patient was reevaluated today on 09/28/2018, patient remains in the ICU, he underwent open gastrostomy tube placement yesterday by Dr. Christian. The procedure went fine, patient remains in the ICU, and the tube is yet to be used today. Patient is feeling fine, does not seem to be in any distress. He still on antibiotics for multilobar pneumonia and he is also on antibiotics for pseudomonal Urinary tract infection. Patient had normal labs including basic metabolic profile. His hemoglobin remains low at 7.2, it was 8.32 days ago, and it was 7.6 yesterday. Patient is comfortable, he is not in any distress, and he is hemodynamically stable. Reevaluated today on 09/29/2018, remains in the ICU, having issues with the patency of the PEG tube, surgery is to address that issue today. Could not be used yet for feeding, hopefully the issue will be fixed by later today then we can start enteral feeding on this patient, and eventually discontinue TPN. Clinically however the patient is about the same, remains on TPN, remains on antibiotics for his multilobar pneumonia, and remains on antibiotics for his pseudomonal urinary tract infection. Hemoglobin is holding at 7.1. Elective lites are normal renal profile is normal. No chest x-ray was done today. Chest x-ray from yesterday was reviewed. Reevaluated today on 09/30/2018, patient is still in the ICU, still on TPN, remains on antibiotics, his overall condition is about the same. We are however having issues with his PEG tube which seems to be plugged, and multiple attempts were made by the surgeon to unplug the PEG tube, but all trials have failed. Discussed that with the surgeon, I believe he is planning to take him back to the operating room early next week. In the meantime we are keeping the patient on TPN. Keeping him on all the present supportive care measures and all anti biotics, patient is extremely frail, he is paraplegic, and I have a strong feeling that his prognosis is going to be extremely poor considering his overall condition. His hemoglobin today was noted to be low at 6.6, and I have recommended a blood transfusion with 1 unit of packed RBCs. His electrolytes are normal except for low potassium being corrected as per protocol. Chest x- ray today showed definite improvement in his right upper lobe infiltrate and left lower lobe infiltrate, but not completely resolved. Patient was reevaluated today on 10/01/2018, remains in the ICU, remains on TPN, remains on few liters nasal cannula, and he remains on multiple antibiotics for his pneumonia and urinary tract infection.and his hemoglobin is up to 8.8, did receive 3 units of packed RBCs yesterday. Electrolytes and renal profile are normal, CBC is relatively unremarkable. No chest x-ray was done. We continue to have problems with the blockage of the PEG tube, multiple attempts have failed to unplug it. Patient may require surgical intervention and again next week. Patient was reevaluated today on 10/02/2018, remains in the ICU, on TPN, on few liters nasal cannula, on antibiotics, and we still have issue with his PEG tube. Dr. Christian is planning to replace it next week. He may do this at bedside. Chest x-ray continues to show right upper lobe infiltrate, and left lower lobe consolidation. All labs were reviewed. Patient remains on TPN for the time being. Reevaluated today on 10/03/2018, patient remains in the ICU, remains on TPN, however last night he desaturated, placed on a nonrebreather mask, and seems to be doing better this morning. His chest x-ray showed the same findings, mostly right upper lobe infiltrate, and left lower lobe consolidation basically about the same. Patient remains on antibiotics, remains on TPN, and was still have issue with his PEG tube being occluded, surgery is planning to replace tomorrow. I did increase the Lasix dose on this patient since he seems to be quite swollen and edematous today. On 10/04/2018 patient seen in follow-up in the intensive care unit, he is lethargic, but able to follow simple commands, not verbalizing. No acute distress, currently on 4 L of oxygen per nasal cannula and his pulse ox is 96%, still having a low-grade fevers with a T-max of 100.6F in the last 24 hours. Hemodynamically stable, maintenance IV fluid include D5.9 normal saline at a rate of 20 ML per hour, Cardizem is at 5 mg per hour and TPN is at 65 ML per hour. No new chest x-ray today, yesterday's chest x-ray showed patchy bilateral pulmonary infiltrates and atelectasis. Labs showed white blood cell count of 3.6, hemoglobin of 8.4, sodium was 137, potassium is 3.9, chloride was 101, CO2 is 32, BUN is 35 and creatinine is 0.87. Cultures have been reviewed, urine cultures positive for pseudomonas aeruginosa, sputum culture showed E. coli and Rosalie albicans, and bronchial washing cultures showed Rosalie albicans. He continues on IV Lasix of 40 mg every 12 hours, has not had significant diuresis, only -143 mL or less 24 hours. Patient's PEG tube has been occluded, patient is scheduled for PEG tube replacement today. Continues with generalized swelling. But overall no distress, we'll repeat chest x-ray tomorrow. Objective - Vital Signs Vital signs: Vital Signs Temp 99.4 F 10/04/18 08:00 Pulse 92 10/04/18 08:27 Resp 18 10/04/18 08:00 BP 92/51 10/04/18 08:00 Pulse Ox 96 10/04/18 08:00 Intake & Output 10/03/18 10/04/18 10/04/18 18:59 06:59 18:59 Intake Total 616 2240.417 440 Output Total 1275 1725 175 Balance -659 515.417 265 Weight 67.6 kg Intake: IV 616 1120 440 Dextrose 5%-0.9% NaCl 1, 200 240 80 000 ml @ 20 mls/hr IV . Q24H M[facility]Y Rx#:[id number] Fat Emulsion 20% 250 ml 21 In Empty Bag 1 bag @ 21 mls/hr IV [id number] [facility]Y Rx#:[id number] Meropenem 1 gm In Sodium 200 100 100 Chloride 0.9% 100 ml @ 200 mls/hr IVPB Q8HR [facility] Rx#:[id number] Potassium Phosphate 20 195 mmol Mvi, Adult No.4 with Vit K 10 ml Trace (Conc- 1Ml/Dose) 1 ml Sodium Acetate 30 meq Magnesium Sulfate gm 1 gm Calcium Gluconate 1 gm Potassium Chloride 10 meq In Amino Acid 5%-D15w 1,000 ml @ 65 mls/hr IV .BY DURATION MERRY Rx#:[id number] Potassium Phosphate 20 780 260 mmol Mvi, Adult No.4 with Vit K 10 ml Trace (Conc- 1Ml/Dose) 1 ml Sodium Acetate 30 meq Magnesium Sulfate gm 1 gm Calcium Gluconate 1 gm Potassium Chloride 20 meq In Amino Acid 4.25%-D10w 1,000 ml @ 65 mls/hr IV .BY DURATION MERRY Rx#: [id number] Intake, IV Titration 1120.417 Amount Diltiazem 125 mg In 117.25 Sodium Chloride 0.9% 100 ml @ 5 MG/HR 5 mls/hr IV .Q24H [facility] Rx#:[id number] Potassium Phosphate 20 1003.167 mmol Mvi, Adult No.4 with Vit K 10 ml Trace (Conc- 1Ml/Dose) 1 ml Sodium Acetate 30 meq Magnesium Sulfate gm 1 gm Calcium Gluconate 1 gm Potassium Chloride 20 meq In Amino Acid 4.25%-D10w 1,000 ml @ 65 mls/hr IV .BY DURATION MERRY Rx#: [id number] Output: Urine 1275 1725 175 Other: Voiding Method Indwelling Catheter Indwelling Catheter - Exam GENERAL EXAM: Somnolent, but follows simple commands, opens eyes to voice, 82-year-old white male, on 4 L of oxygen comfortable in no apparent distress. HEAD: Normocephalic/atraumatic. EYES: Normal reaction of pupils, equal size. Conjunctiva pink, sclera white. NOSE: Clear with pink turbinates. THROAT: No erythema or exudates. NECK: No masses, no JVD, no thyroid enlargement, no adenopathy. CHEST: No chest wall deformity. Symmetrical expansion. LUNGS: Equal air entry with crackles, rhonchi CVS: Regular rate and rhythm, normal S1 and S2, no gallops, no murmurs, no rubs ABDOMEN: Soft, nontender. No hepatosplenomegaly, normal bowel sounds, no guarding or rigidity. PEG tube site is clean and intact, but the PEG tube remains occluded, feedings on hold. Suprapubic catheter in place EXTREMITIES: No clubbing, 2+ bipedal edema, no cyanosis, 2+ pulses and upper and lower extremities. MUSCULOSKELETAL: Muscle strength and tone normal. SPINE: No scoliosis or deformity SKIN: No rashes CENTRAL NERVOUS SYSTEM: Alert and oriented -1. Patient does not verbalize, communicates by nodding his head.No focal deficits, tone is normal in all 4 extremities. Chronic flexion contractures and atrophy of lower extremities - Labs CBC & Chem 7: 10/04/18 05:22 10/04/18 05:22 Labs: Abnormal Lab Results - Last 24 Hours (Table) 10/03/18 10/03/18 10/04/18 Range/Units 12:05 18:04 00:05 WBC (3.8-10.6) k/uL RBC (4.30-5.90) m/uL Hgb (13.0-17.5) gm/dL Hct (39.0-53.0) % MCV (80.0-100.0) fL MCHC (31.0-37.0) g/dL Lymphocytes # (1.0-4.8) k/uL Carbon Dioxide (22-30) mmol/L BUN (9-20) mg/dL Glucose (74-99) mg/dL POC Glucose (mg/dL) 115 H 123 H 122 H (75-99) mg/dL Calcium (8.4-10.2) mg/dL 10/04/18 10/04/18 10/04/18 Range/Units 05:22 05:22 05:38 WBC 3.6 L (3.8-10.6) k/uL RBC 2.66 L (4.30-5.90) m/uL Hgb 8.4 L (13.0-17.5) gm/dL Hct 27.1 L (39.0-53.0) % MCV 102.0 H (80.0-100.0) fL MCHC 30.9 L (31.0-37.0) g/dL Lymphocytes # 0.3 L (1.0-4.8) k/uL Carbon Dioxide 32 H (22-30) mmol/L BUN 35 H (9-20) mg/dL Glucose 122 H (74-99) mg/dL POC Glucose (mg/dL) 140 H (75-99) mg/dL Calcium 8.0 L (8.4-10.2) mg/dL Assessment and Plan Plan: Assessment: 1 acute hypoxic respiratory failure secondary to pneumonia, most likely aspiration pneumonia unless for otherwise. His sputum cultures have been positive for E. coli and for Rosalie albicans. 2 acute urinary tract infection secondary to pseudomonas aeruginosa 3 hyponatremia on presentation, resolved since admission. 4 suprapubic catheter for recurrent urinary tract infection 5 quadriplegia secondary to previous cervical fracture 6 previous history of deep vein thrombosis maintained on fci ant icoagulation therapy 7 failed the swallow evaluation, patient is scheduled for PEG tube placement s urgically today since previous attempts to do it under IV conscious sedation failed. 8 paroxysmal atrial fibrillation, 9 Coumadin toxicity on admission, resolved 10 history of hypertension 11 history of hypothyroidism 12 plugged PEG tube, multiple attempts to unplug the PEG tube have failed. May require surgery again. And his tube replacement in the meantime continue TPN per 12 status post open gastrostomy tube placement and repair of incisional hernia postoperative day #7 however the PEG tube seems to be nonfunctional at this point, may require replacement. Plan: We'll continue with supportive treatment, continue with breathing treatments, IV Lasix, repeat chest x-ray in the morning. Patient is scheduled for replacement of the PEG tube today. Continues to be intermittently febrile, with low grade fevers, antibiotic's per ID service. 18 aspiration precautions, tinea with TPN for nutritional support, and DVT prophylaxis. Overall prognosis is quite guarded, we have addressed the CODE STATUS with the patient's legal guardian who is a patient his daughter, who was quite adamant about keeping the patient a full code. Continue supportive care. I performed a history & physical examination of the patient and discussed their management with my nurse practitioner, Poonam Myrick. I reviewed the nurse practitioner's note and agree with the documented findings and plan of care. Lung sounds are positive for some scattered rhonchi. The findings and the impression was discussed with the patient. I attest to the documentation by the nurse practitioner. Time with Patient: Less than 30
[2018-10-04] MEDS: POTASSIUM CHLORIDE 10 MEQ in WATER FOR INJECTION 1 100ML.BAG IVPB SCH ×2 (10:48→11:52)
--- NOTE | 2018-10-04 11:40 | P.PN ---
Subjective Progress Note Date: 10/04/18 CHIEF COMPLAINT: PEG tube placement HISTORY OF PRESENT ILLNESS: Patient is s/p open gastrostomy tube and repair of incisional hernia. Tube was previously clogged from medication administration. PHYSICAL EXAM: VITAL SIGNS: Reviewed. GENERAL: Well-developed in no acute distress. HEENT: No sclera icterus. Extraocular movements grossly intact. Moist buccal mucosa. Head is atraumatic, normocephalic. ABDOMEN: Soft. Nondistended. Gastrostomy tube intact. Midline incision with dressing. NEUROLOGIC: Nonverbal. Patient able to communicate by nodding his head yes or no. Quadriplegic. ASSESSMENT: 1. Malnutrition, patient failed swallow screen, s/p unsuccessful attempts of Dobbhoff insertion 2. Aborted upper endoscopy for PEG tube placement, unable to intubate esophagus 3. S/P open gastrostomy tube and repair of incisional hernia 4. Clogged gastrostomy tube secondary to medication administration 5. Fecal impaction PLAN: Gastrostomy tube exchanged at the bedside. Patient tolerated well. May begin tube feedings All medications MUST be crushed and dissolved entirely before administering down feeding tube Nurse practitioner note has been reviewed by physician. Signing provider agrees with the documented findings, assessment, and plan of care. Objective - Vital Signs Vital signs: Vital Signs Temp 99.4 F 10/04/18 08:00 Pulse 92 10/04/18 08:27 Resp 18 10/04/18 08:00 BP 92/51 10/04/18 08:00 Pulse Ox 96 10/04/18 08:00 Intake & Output 10/03/18 10/04/18 10/04/18 18:59 06:59 18:59 Intake Total 616 2240.417 440 Output Total 1275 1725 175 Balance -659 515.417 265 Weight 67.6 kg Intake: IV 616 1120 440 Dextrose 5%-0.9% NaCl 1, 200 240 80 000 ml @ 20 mls/hr IV . Q24H [facility] Rx#:[id number] Fat Emulsion 20% 250 ml 21 In Empty Bag 1 bag @ 21 mls/hr IV [id number] [facility] Rx#:[id number] Meropenem 1 gm In Sodium 200 100 100 Chloride 0.9% 100 ml @ 200 mls/hr IVPB Q8HR [facility] Rx#:[id number] Potassium Phosphate 20 195 mmol Mvi, Adult No.4 with Vit K 10 ml Trace (Conc- 1Ml/Dose) 1 ml Sodium Acetate 30 meq Magnesium Sulfate gm 1 gm Calcium Gluconate 1 gm Potassium Chloride 10 meq In Amino Acid 5%-D15w 1,000 ml @ 65 mls/hr IV .BY DURATION [facility] Rx#:[id number] Potassium Phosphate 20 780 260 mmol Mvi, Adult No.4 with Vit K 10 ml Trace (Conc- 1Ml/Dose) 1 ml Sodium Acetate 30 meq Magnesium Sulfate gm 1 gm Calcium Gluconate 1 gm Potassium Chloride 20 meq In Amino Acid 4.25%-D10w 1,000 ml @ 65 mls/hr IV .BY DURATION [facility]Y Rx#: [id number] Intake, IV Titration 1120.417 Amount Diltiazem 125 mg In 117.25 Sodium Chloride 0.9% 100 ml @ 5 MG/HR 5 mls/hr IV .Q24H [facility] Rx#:[id number] Potassium Phosphate 20 1003.167 mmol Mvi, Adult No.4 with Vit K 10 ml Trace (Conc- 1Ml/Dose) 1 ml Sodium Acetate 30 meq Magnesium Sulfate gm 1 gm Calcium Gluconate 1 gm Potassium Chloride 20 meq In Amino Acid 4.25%-D10w 1,000 ml @ 65 mls/hr IV .BY DURATION [facility] Rx#: [id number] Output: Urine 1275 1725 175 Other: Voiding Method Indwelling Catheter Indwelling Catheter - Labs CBC & Chem 7: 10/04/18 05:22 10/04/18 05:22 Labs: Abnormal Lab Results - Last 24 Hours (Table) 10/03/18 10/03/18 10/04/18 Range/Units 12:05 18:04 00:05 WBC (3.8-10.6) k/uL RBC (4.30-5.90) m/uL Hgb (13.0-17.5) gm/dL Hct (39.0-53.0) % MCV (80.0-100.0) fL MCHC (31.0-37.0) g/dL Lymphocytes # (1.0-4.8) k/uL Carbon Dioxide (22-30) mmol/L BUN (9-20) mg/dL Glucose (74-99) mg/dL POC Glucose (mg/dL) 115 H 123 H 122 H (75-99) mg/dL Calcium (8.4-10.2) mg/dL 10/04/18 10/04/18 10/04/18 Range/Units 05:22 05:22 05:38 WBC 3.6 L (3.8-10.6) k/uL RBC 2.66 L (4.30-5.90) m/uL Hgb 8.4 L (13.0-17.5) gm/dL Hct 27.1 L (39.0-53.0) % MCV 102.0 H (80.0-100.0) fL MCHC 30.9 L (31.0-37.0) g/dL Lymphocytes # 0.3 L (1.0-4.8) k/uL Carbon Dioxide 32 H (22-30) mmol/L BUN 35 H (9-20) mg/dL Glucose 122 H (74-99) mg/dL POC Glucose (mg/dL) 140 H (75-99) mg/dL Calcium 8.0 L (8.4-10.2) mg/dL
[2018-10-04 11:58] LABS: Glucose,Whole Blood 144 mg/dL (75-99)
--- NOTE | 2018-10-04 13:58 | P.OP ---
Date of Procedure: 10/04/18 Preoperative Diagnosis: Obstructed PEG tube Postoperative Diagnosis: Obstructed PEG tube with compacted pills Procedure(s) Performed: Exchange of PEG tube Anesthesia: none Surgeon: Jose Christian Pathology: none sent Condition: stable Disposition: PACU Description of Procedure: The patient's placed supine on his bed. The balloon from his feeding tube was decompressed. The old PEG tube was removed. There was compacted pills visualized at the end of the PEG tube. A new 16-Telugu DOMINIK tube was placed through the tract. The balloon was expanded. The tubes flushed easily. Patient top she will well.
[2018-10-04] MEDS: LACTATED RINGERS 1,000 ML IV SCH (14:23)
[2018-10-04 18:07] LABS: Glucose,Whole Blood 160 mg/dL (75-99)
[2018-10-04] MEDS: FAT EMULSION 20% 250 ML in EMPTY BAG 1 BAG IV SCH (18:12)
--- NOTE | 2018-10-04 20:03 | PN ---
PROGRESS NOTE DATE OF SERVICE: 10/04/2018 This 82-year-old gentleman who was admitted with a bilateral multilobar aspiration pneumonia with possible sepsis and had a bronchoscopy and mucous plugs removed. The patient has acute hypoxic respiratory failure sputum. Patient is on PPN. The patient underwent exchange of PEG tube by Dr. Christian. The tube feeds have initiated 10 mL per hour. Patient being closely monitored. PAST MEDICAL HISTORY: Reviewed. REVIEW OF SYSTEMS: Could not be taken. The patient is stuporous. CURRENT MEDICATIONS: Reviewed and include: 1. Tylenol p.r.n. 2. DuoNeb q.i.d. and p.r.n. 3. Dulcolax. 4. Vitamin D3. 5. Diltiazem drip. 6. Lovenox. 7. TPN. 8. Mucinex. 9. Apresoline. 10.Imodium. 11.Meropenem. 12.Multivitamins. 13.PPN. PHYSICAL EXAM: Patient is stuporous. Pulse is 106. Blood pressure 106/64, respiratory rate 24, temperature 100.5, pulse ox 98% on room air. HEENT: Conjunctivae normal. Oral mucosa moist. Neck is no jugular venous distention. No carotid bruit. No lymph node enlargement. Cardiovascular: S1, S2 muffled. Respirations: Breath sounds diminished in the bases. Scattered rhonchi and crackles. ABDOMEN: Soft. PEG tube in situ. Legs no edema. No swelling. Central nervous system: Unchanged. LAB STUDIES: WBC 3.6, hemoglobin is 8.4. ASSESSMENT: 1. Bilateral multilobar aspiration pneumonia with possible sepsis status post bronchoscopy and mucous plug removal. 2. Acute hypoxic respiratory failure requiring high-flow oxygen down to nasal cannula. 3. Pseudomonas aeruginosa in the urine and Rosalie and E coli from the sputum. 4. Status post PEG tube exchange and replacement for a blocked PEG tube. 5. On PPN. 6. Essential hypertension. 7. Recurrent fever. 8. Chronic quadriplegia with residual function in the right upper limb and lower extremity baseline. 9. History of chronic neurogenic bladder with chronic suprapubic catheter. 10.Acute Coumadin toxicity resolved with vitamin K. 11.Acute urinary tract infection secondary to suprapubic catheter. 12.Acute metabolic encephalopathy from significant improvement. 13.Peripheral neuropathy. 14.Paroxysmal atrial fibrillation, currently normal sinus rhythm. 15.Malnutrition, with mild to moderate protein calorie malnutrition, status post PEG tube placement. 16.FULL CODE. RECOMMENDATIONS AND DISCUSSION: Recommend to continue current medications, management and symptomatic treatment. Continue antibiotics. I would also recommend wills cultures. Otherwise continue to monitor. PT/OT evaluation. Continue with bronchodilators. Guarded prognosis. Further recommendations to follow. JOSSY / JEROMY: [id number] / MTDD
[2018-10-04] MEDS ORDERED: guaiFENesin-DM 100-10MG/5ML 10 ML CUP PO PRN (20:13)
[2018-10-04] MEDS: DILTIAZEM 125 MG in SODIUM CHLORIDE 0.9% 100 ML IV SCH (22:39)
[2018-10-04 23:58] LABS: Glucose,Whole Blood 178 mg/dL (75-99)
[2018-10-05] MEDS: MEROPENEM 1 GM in SODIUM CHLORIDE 0.9% 100 ML IVPB SCH ×2 (00:18→08:49)
[2018-10-05] MEDS: INSULIN ASPART (NovoLOG) 100 UNIT/ML VIAL SQ SCH ×5 (00:19→23:28)
--- NOTE | 2018-10-05 00:21 | P.PN ---
Progress Note - Text Progress Note Date: 10/04/18 PROGRESS NOTE DATE OF SERVICE: 10/04/2018. REASON FOR FOLLOWUP: Pseudomonas urinary tract infection, aspiration pneumonia. New fever INTERVAL HISTORY: The patient has been running low-grade fever the last 24 hour. The patient is hemodynamically stable, not on pressor support. Patient seemed to have problem with his PEG tube. No diarrhea reported. PHYSICAL EXAMINATION: Blood pressure 150/60 with a pulse of 85, temperature 100.6F, he is 97% on 2 L nasal cannula. GENERAL DESCRIPTION: An elderly male lying in bed in no distress. RESPIRATORY SYSTEM: Unlabored breathing. Decreased breath sounds in the bases, no wheeze. HEART: S1 and S2 regular rate and rhythm. LABS: Reviewed. DIAGNOSTIC IMPRESSION AND PLAN: 1-Patient with pseudomonas urinary tract infection with aspiration pneumonia. The patient is currently covered with meropenem because of multiple antibiotic allergies. 2- patient with new fever blood cultures repeated. Will repeat a UA and culture repeat Chest x-ray in the morning , and just anabolic further on the basis of these test And clinical response, add diflucan We will continue to monitor the patient's clinical course closely and continue supportive care.
[2018-10-05 03:11] LABS: Amorphous Sediment,Urine Rare /hpf; Appearance,Urine Cloudy (Clear); Bilirubin,Urine Negative (Negative); Blood,Urine Small (Negative); Budding Yeast,Urine Many /hpf; Color,Urine Yellow; Glucose,Urine (UA) Negative (Negative); Hyaline Casts,Urine 162 /lpf (0-2); Ketones,Urine Negative (Negative); Leukocyte Esterase,Urine Large (Negative); Mucus,Urine Rare /hpf; Nitrite,Urine Negative (Negative); Protein,Urine 1+ (Negative); Specific Gravity,Urine 1.014 (1.001-1.035)
[2018-10-05 05:35] LABS: Basophils % (A) 1 %; Eosinophils % (A) 1 %; HCT 29.9 % (39.0-53.0); HGB 9.1 gm/dL (13.0-17.5); Hypochromasia Marked; Lymphocytes # (A) 0.2 k/uL (1.0-4.8); Lymphocytes % (A) 7 %; MCH 31.9 pg (25.0-35.0); MCHC 30.5 g/dL (31.0-37.0); MCV 104.6 fL (80.0-100.0); Macrocytosis Moderate; Mean Platelet Volume 7.5; Monocytes # (A) 0.1 k/uL (0-1.0); Monocytes % (A) 4 %; Neutrophils % (A) 85 %; Platelet Count 139 k/uL (150-450); RBC 2.86 m/uL (4.30-5.90); WBC 2.3 k/uL (3.8-10.6)
[2018-10-05 05:54] LABS: Glucose,Whole Blood 142 mg/dL (75-99)
[2018-10-05 05:57] LABS: Ionized Calcium 4.9 mg/dL (4.5-5.3)
[2018-10-05 06:06] LABS: Albumin 2.3 g/dL (3.5-5.0); Calcium 8.5 mg/dL (8.4-10.2); Magnesium 2.2 mg/dL (1.6-2.3); Phosphorus 3.1 mg/dL (2.5-4.5); Potassium 3.3 mmol/L (3.5-5.1)
[2018-10-05] MEDS ORDERED: Potassium Replacement Protocol 1 EACH MISC MISCELLANE PRN (06:16)
[2018-10-05] MEDS: IPRATROPIUM-ALBUTEROL 3 ML NEB INHALATION SCH ×4 (06:44→20:00)
[2018-10-05] MEDS: POTASSIUM BICARBONATE/CIT AC 20 MEQ TABLET.EFF NG-TUBE SCH ×2 (07:22→09:51)
[2018-10-05] MEDS: DEXTROSE 5%-0.9% NACL 1,000 ML IV SCH (07:22)
--- NOTE | 2018-10-05 07:40 | XR ---
EXAMINATION TYPE: XR chest 1V DATE OF EXAM: 10/05/2018 COMPARISON: 10/03/2018 HISTORY: Shortness of breath TECHNIQUE: Single frontal view of the chest is obtained. FINDINGS: Bilateral areas of consolidation and small effusion are noted. Heart size stable. Atherosc lerotic change aorta. Arthropathy of the shoulders. Surgical shari overlying the abdomen. IMPRESSION: Bilateral infiltrate and small effusion. Findings are stable. Follow-up to resolution to exclude underlying neoplasm.
[2018-10-05] MEDS ORDERED: FLUCONAZOLE 100 MG TAB PO SCH (09:00)
--- NOTE | 2018-10-05 09:06 | P.PN ---
Subjective Progress Note Date: 10/05/18 Principal diagnosis: Acute pseudomonas aeruginosa urinary tract infection and multilobar pneumonia This is an 82-year-old white male, known history of quadriplegia, admitted on 09/18/2018, main admitting diagnosis was sepsis, acute hypoxic respiratory failure, aspiration pneumonia, Pseudomonas urinary tract infection, electrolytes imbalance, coagulopathy and thrombocytopenia. His blood cultures have been negative since admission, his urine cultures were positive for pseudomonas aeruginosa sputum cultures positive for Rosalie albicans and E. coli. Patient was seen by Dr. Rivas on consultation, and he was treated with Merrem, he underwent a bronchoscopy and bronchoalveolar lavage, and it was eventually recommended that the patient needs a PEG tube placement. Dr. lópez saw the patient on consultation, and he underwent a trial of PEG tube placement, however numerous attempts were made and esophagus could not be intubated. Then it was the recommendation of undergoing surgical approach for a PEG tube placement and this would be done today by Dr. Christian. I saw the patient today in the ICU, he looks very comfortable, he is on 2 L nasal cannula, in no distress, he seems quite edematous and I believe that's probably because of his poor nutritional status, and hypoalbuminemia. Patient is on TPN for nutritional support. He is also on antibiotics for UTI and pneumonia. Labs were reviewed had a relatively normal electrolytes, normal renal profile, hemoglobin is 7.6. WBC count is 3.2. His last chest x-ray from 09/25 showed cardiomegaly and small pleural effusions, and bilateral airspace disease. Patient was reevaluated today on 09/28/2018, patient remains in the ICU, he underwent open gastrostomy tube placement yesterday by Dr. Christian. The procedure went fine, patient remains in the ICU, and the tube is yet to be used today. Patient is feeling fine, does not seem to be in any distress. He still on antibiotics for multilobar pneumonia and he is also on antibiotics for pseudomonal Urinary tract infection. Patient had normal labs including basic metabolic profile. His hemoglobin remains low at 7.2, it was 8.32 days ago, and it was 7.6 yesterday. Patient is comfortable, he is not in any distress, and he is hemodynamically stable. Reevaluated today on 09/29/2018, remains in the ICU, having issues with the patency of the PEG tube, surgery is to address that issue today. Could not be used yet for feeding, hopefully the issue will be fixed by later today then we can start enteral feeding on this patient, and eventually discontinue TPN. Clinically however the patient is about the same, remains on TPN, remains on antibiotics for his multilobar pneumonia, and remains on antibiotics for his pseudomonal urinary tract infection. Hemoglobin is holding at 7.1. Elective lites are normal renal profile is normal. No chest x-ray was done today. Chest x-ray from yesterday was reviewed. Reevaluated today on 09/30/2018, patient is still in the ICU, still on TPN, remains on antibiotics, his overall condition is about the same. We are however having issues with his PEG tube which seems to be plugged, and multiple attempts were made by the surgeon to unplug the PEG tube, but all trials have failed. Discussed that with the surgeon, I believe he is planning to take him back to the operating room early next week. In the meantime we are keeping the patient on TPN. Keeping him on all the present supportive care measures and all anti biotics, patient is extremely frail, he is paraplegic, and I have a strong feeling that his prognosis is going to be extremely poor considering his overall condition. His hemoglobin today was noted to be low at 6.6, and I have recommended a blood transfusion with 1 unit of packed RBCs. His electrolytes are normal except for low potassium being corrected as per protocol. Chest x- ray today showed definite improvement in his right upper lobe infiltrate and left lower lobe infiltrate, but not completely resolved. Patient was reevaluated today on 10/01/2018, remains in the ICU, remains on TPN, remains on few liters nasal cannula, and he remains on multiple antibiotics for his pneumonia and urinary tract infection.and his hemoglobin is up to 8.8, did receive 3 units of packed RBCs yesterday. Electrolytes and renal profile are normal, CBC is relatively unremarkable. No chest x-ray was done. We continue to have problems with the blockage of the PEG tube, multiple attempts have failed to unplug it. Patient may require surgical intervention and again next week. Patient was reevaluated today on 10/02/2018, remains in the ICU, on TPN, on few liters nasal cannula, on antibiotics, and we still have issue with his PEG tube. Dr. Christian is planning to replace it next week. He may do this at bedside. Chest x-ray continues to show right upper lobe infiltrate, and left lower lobe consolidation. All labs were reviewed. Patient remains on TPN for the time being. Reevaluated today on 10/03/2018, patient remains in the ICU, remains on TPN, however last night he desaturated, placed on a nonrebreather mask, and seems to be doing better this morning. His chest x-ray showed the same findings, mostly right upper lobe infiltrate, and left lower lobe consolidation basically about the same. Patient remains on antibiotics, remains on TPN, and was still have issue with his PEG tube being occluded, surgery is planning to replace tomorrow. I did increase the Lasix dose on this patient since he seems to be quite swollen and edematous today. On 10/04/2018 patient seen in follow-up in the intensive care unit, he is lethargic, but able to follow simple commands, not verbalizing. No acute distress, currently on 4 L of oxygen per nasal cannula and his pulse ox is 96%, still having a low-grade fevers with a T-max of 100.6F in the last 24 hours. Hemodynamically stable, maintenance IV fluid include D5.9 normal saline at a rate of 20 ML per hour, Cardizem is at 5 mg per hour and TPN is at 65 ML per hour. No new chest x-ray today, yesterday's chest x-ray showed patchy bilateral pulmonary infiltrates and atelectasis. Labs showed white blood cell count of 3.6, hemoglobin of 8.4, sodium was 137, potassium is 3.9, chloride was 101, CO2 is 32, BUN is 35 and creatinine is 0.87. Cultures have been reviewed, urine cultures positive for pseudomonas aeruginosa, sputum culture showed E. coli and Rosalie albicans, and bronchial washing cultures showed Rosalie albicans. He continues on IV Lasix of 40 mg every 12 hours, has not had significant diuresis, only -143 mL or less 24 hours. Patient's PEG tube has been occluded, patient is scheduled for PEG tube replacement today. Continues with generalized swelling. But overall no distress, we'll repeat chest x-ray tomorrow. On 10/05/2018 patient seen in follow-up in the intensive care unit, today he had his PEG tube replaced, tube feedings have been started, he is receiving vital LYLA rate of 20 with a goal of 35. Remains on TPN at a rate of 65 ML per hour, Cardizem drip has been transitioned to oral metoprolol per cardiology. Maintenance IV fluid 0.9 normal saline at a rate of 20 ML per hour. Oral Eliquis has been started for anticoagulation, patient has been on Lovenox, which will be discontinued now, he is on 4 L of oxygen per nasal cannula and his pulse ox is 98%, no fever or chills, hemodynamically patient is stable, he is able to open eyes and nod his head yes or no appropriately, but does not verbalize. On sounds are positive for scattered rhonchi, oral mucous membranes are dry. Today's labs have been reviewed, white blood cell, still 0.3, hemoglobin is 9.1, sodium is 136, potassium is 3.3, chloride is 100, BUN is 44 creatinine 0.95. Repeat urinalysis showed large amount of leuk trase, 42 of white blood cell count, many budding yeast. ID service is following, patient is currently covered with meropenem because of multiple antibiotic ALLERGIES. Blood cultures have been repeated and are pending at this time, urine culture has been repeated. Previous urine culture was positive for pseudomonas aeruginosa, bronchial wash cultures showed Rosalie albicans, sputum culture was positive for E. coli and Rosalie albicans. Today's chest x-ray showed bilateral infiltrates, and small effusions, right upper lobe consolidation appears to be slightly worse. Right upper arm is swollen, we'll check for DVT. Objective - Vital Signs Vital signs: Vital Signs Temp 97.6 F 10/05/18 04:00 Pulse 91 10/05/18 06:54 Resp 20 10/05/18 04:00 BP 143/75 10/05/18 04:00 Pulse Ox 98 10/05/18 04:00 Intake & Output 10/04/18 10/05/18 10/05/18 18:59 06:59 18:59 Intake Total 1390 2299.6667 520 Output Total 1350 660 100 Balance 40 1639.6667 420 Weight 68 kg Intake: IV 1320 1120 440 Dextrose 5%-0.9% NaCl 1, 240 240 80 000 ml @ 20 mls/hr IV . Q24H [facility] Rx#:[id number] Meropenem 1 gm In Sodium 200 100 100 Chloride 0.9% 100 ml @ 200 mls/hr IVPB Q8HR [facility] Rx#:[id number] Potassium Chloride 10 meq 100 In Water For Injection 1 100ml.bag @ 100 mls/hr IVPB Q1H [facility] Rx#: [id number] Potassium Phosphate 20 780 780 260 mmol Mvi, Adult No.4 with Vit K 10 ml Trace (Conc- 1Ml/Dose) 1 ml Sodium Acetate 30 meq Magnesium Sulfate gm 1 gm Calcium Gluconate 1 gm Potassium Chloride 20 meq In Amino Acid 4.25%-D10w 1,000 ml @ 65 mls/hr IV .BY DURATION [facility] Rx#: [id number] Intake, IV Titration 1179.6667 Amount Diltiazem 125 mg In 125 Sodium Chloride 0.9% 100 ml @ 5 MG/HR 5 mls/hr IV .Q24H [facility] Rx#:[id number] Potassium Phosphate 20 1054.6667 mmol Mvi, Adult No.4 with Vit K 10 ml Trace (Conc- 1Ml/Dose) 1 ml Sodium Acetate 30 meq Magnesium Sulfate gm 1 gm Calcium Gluconate 1 gm Potassium Chloride 20 meq In Amino Acid 4.25%-D10w 1,000 ml @ 65 mls/hr IV .BY DURATION [facility] Rx#: [id number] Tube Feeding 40 80 Other 30 Output: Urine 1350 660 100 Other: Voiding Method Indwelling Catheter Indwelling Catheter - Exam GENERAL EXAM: Somnolent, but follows simple commands, opens eyes to voice, 82-year-old white male, on 4 L of oxygen comfortable in no apparent distress. HEAD: Normocephalic/atraumatic. EYES: Normal reaction of pupils, equal size. Conjunctiva pink, sclera white. NOSE: Clear with pink turbinates. THROAT: No erythema or exudates. NECK: No masses, no JVD, no thyroid enlargement, no adenopathy. CHEST: No chest wall deformity. Symmetrical expansion. LUNGS: Equal air entry with crackles, rhonchi CVS: Regular rate and rhythm, normal S1 and S2, no gallops, no murmurs, no rubs ABDOMEN: Soft, nontender. No hepatosplenomegaly, normal bowel sounds, no guarding or rigidity. PEG tube site is clean and intact, LAYLA feedings of vital AF infusing at 20 ML per hour, PEG tube has been replaced and is functioning satisfactorily. Suprapubic catheter in place EXTREMITIES: No clubbing, 2+ bipedal edema, no cyanosis, 2+ pulses and upper and lower extremities. 2+ right upper extremity edema MUSCULOSKELETAL: Muscle strength and tone normal. SPINE: No scoliosis or deformity SKIN: No rashes CENTRAL NERVOUS SYSTEM: Alert and oriented -1. Patient does not verbalize, communicates by nodding his head.No focal deficits, tone is normal in all 4 extremities. Chronic flexion contractures and atrophy of lower extremities - Labs CBC & Chem 7: 10/05/18 05:22 10/05/18 05:22 Labs: Abnormal Lab Results - Last 24 Hours (Table) 10/04/18 10/04/18 10/04/18 Range/Units 11:57 18:06 23:57 WBC (3.8-10.6) k/uL RBC (4.30-5.90) m/uL Hgb (13.0-17.5) gm/dL Hct (39.0-53.0) % MCV (80.0-100.0) fL MCHC (31.0-37.0) g/dL Plt Count (150-450) k/uL Lymphocytes # (1.0-4.8) k/uL Sodium (137-145) mmol/L Potassium (3.5-5.1) mmol/L BUN (9-20) mg/dL Glucose (74-99) mg/dL POC Glucose (mg/dL) 144 H 160 H 178 H (75-99) mg/dL Albumin (3.5-5.0) g/dL Urine Protein (Negative) Urine Blood (Negative) Ur Leukocyte Esterase (Negative) Urine WBC (0-5) /hpf Amorphous Sediment (None) /hpf Hyaline Casts (0-2) /lpf Urine Mucus (None) /hpf Urine Yeast (Budding) (None) /hpf 10/05/18 10/05/18 10/05/18 Range/Units 02:00 05:22 05:22 WBC 2.3 L (3.8-10.6) k/uL RBC 2.86 L (4.30-5.90) m/uL Hgb 9.1 L (13.0-17.5) gm/dL Hct 29.9 L (39.0-53.0) % MCV 104.6 H (80.0-100.0) fL MCHC 30.5 L (31.0-37.0) g/dL Plt Count 139 L (150-450) k/uL Lymphocytes # 0.2 L (1.0-4.8) k/uL Sodium 136 L (137-145) mmol/L Potassium 3.3 L (3.5-5.1) mmol/L BUN 44 H (9-20) mg/dL Glucose 130 H (74-99) mg/dL POC Glucose (mg/dL) (75-99) mg/dL Albumin 2.3 L (3.5-5.0) g/dL Urine Protein 1+ H (Negative) Urine Blood Small H (Negative) Ur Leukocyte Esterase Large H (Negative) Urine WBC 42 H (0-5) /hpf Amorphous Sediment Rare H (None) /hpf Hyaline Casts 162 H (0-2) /lpf Urine Mucus Rare H (None) /hpf Urine Yeast (Budding) Many H (None) /hpf 10/05/18 Range/Units 05:52 WBC (3.8-10.6) k/uL RBC (4.30-5.90) m/uL Hgb (13.0-17.5) gm/dL Hct (39.0-53.0) % MCV (80.0-100.0) fL MCHC (31.0-37.0) g/dL Plt Count (150-450) k/uL Lymphocytes # (1.0-4.8) k/uL Sodium (137-145) mmol/L Potassium (3.5-5.1) mmol/L BUN (9-20) mg/dL Glucose (74-99) mg/dL POC Glucose (mg/dL) 142 H (75-99) mg/dL Albumin (3.5-5.0) g/dL Urine Protein (Negative) Urine Blood (Negative) Ur Leukocyte Esterase (Negative) Urine WBC (0-5) /hpf Amorphous Sediment (None) /hpf Hyaline Casts (0-2) /lpf Urine Mucus (None) /hpf Urine Yeast (Budding) (None) /hpf Assessment and Plan Plan: Assessment: 1 acute hypoxic respiratory failure secondary to pneumonia, most likely aspiration pneumonia unless for otherwise. His sputum cultures have been positive for E. coli and for Rosalie albicans. 2 acute urinary tract infection secondary to pseudomonas aeruginosa 3 hyponatremia on presentation, resolved since admission. 4 suprapubic catheter for recurrent urinary tract infection 5 quadriplegia secondary to previous cervical fracture 6 previous history of deep vein thrombosis maintained on senior living anticoagulation therapy 7 failed the swallow evaluation, patient is scheduled for PEG tube placement surgically today since previous attempts to do it under IV conscious sedation failed. 8 paroxysmal atrial fibrillation, 9 Coumadin toxicity on admission, resolved 10 history of hypertension 11 history of hypothyroidism 12 plugged PEG tube, multiple attempts to unplug the PEG tube have failed. May require surgery again. And his tube replacement in the meantime continue TPN per 12 status post open gastrostomy tube placement and repair of incisional hernia postoperative day #7 however the PEG tube seems to be nonfunctional at this point, may require replacement. Plan: Awaiting the results of the repeat blood cultures urine culture. Patient continues on meropenem. Did have an episode of febrile episode yesterday. Continue supportive care, tube feedings, breathing treatments, maintain aspiration precautions. Hemodynamically patient remains stable, his heart rate is controlled, has been started on oral anticoagulation. Will obtain ultrasound of the right upper extremity to rule out DVT. Overall prognosis is guarded I performed a history & physical examination of the patient and discussed their management with my nurse practitioner, Poonam Myrick. I reviewed the nurse practitioner's note and agree with the documented findings and plan of care. Lung sounds are positive for some scattered rhonchi. The findings and the impression was discussed with the patient. I attest to the documentation by the nurse practitioner. Time with Patient: Less than 30
[2018-10-05] MEDS: MULTIVITAMINS, THERA 1 EACH TAB PO SCH (09:51)
[2018-10-05] MEDS: LEVOTHYROXINE IVP 100 MCG/5 ML VIAL IV SCH (09:52)
[2018-10-05] MEDS: METOPROLOL TARTRATE 25 MG TAB PO SCH ×2 (09:52→21:44)
[2018-10-05] MEDS: APIXABAN 2.5 MG TABLET PO SCH ×2 (09:52→21:44)
[2018-10-05] MEDS: BISACODYL 10 MG SUPP RECTAL SCH (09:52)
[2018-10-05] MEDS: PANTOPRAZOLE 40 MG/10 ML VIAL IVP SCH (09:52)
[2018-10-05] MEDS: FUROSEMIDE 10 MG/ML 2 ML VIAL IV SCH ×2 (10:41→21:44)
--- NOTE | 2018-10-05 12:04 | P.PN ---
Progress Note - Text Discussed management plan admit been outlined a few days back by Dr. CONNIE Pritchard, with the nurse Start oral beta blockers 25 mg twice daily metoprolol Start ELIQUIS 2.5 mg twice daily Please call cardiology as needed for any new issues
[2018-10-05 12:09] LABS: Glucose,Whole Blood 104 mg/dL (75-99)
--- NOTE | 2018-10-05 12:55 | US ---
EXAMINATION TYPE: US venous doppler duplex UE RT DATE OF EXAM: 10/05/2018 COMPARISON: NONE CLINICAL HISTORY: swollen arm, r/o dvt. Swelling right arm; R/O DVT. SIDE PERFORMED: Right Arm Exam limited as patient is in ICU with arm immobility. Right Arm: Scanned right IJV, right subclavian vein, and right axillary vein. Color flow patency docu mented in these vessels visualized. Patient unable to rotate arm to evaluate patency of the remaining arm veins. Limited transverse views due to bent arm fixation. IMPRESSION: Limited exam due to positioning demonstrates color flow within the visualized right IJV, subclavian v ein and axillary vein. Due to the patient's difficulty with positioning remaining arm veins could not be evaluated.
--- NOTE | 2018-10-05 12:57 | P.PN ---
Subjective Progress Note Date: 10/05/18 CHIEF COMPLAINT: PEG tube placement HISTORY OF PRESENT ILLNESS: Patient is s/p open gastrostomy tube and repair of incisional hernia. Status post bedside exchange of feeding tube yesterday. Tube feedings infusing. PHYSICAL EXAM: VITAL SIGNS: Reviewed. GENERAL: Well-developed in no acute distress. HEENT: No sclera icterus. Extraocular movements grossly intact. Moist buccal mucosa. Head is atraumatic, normocephalic. ABDOMEN: Soft. Nondistended. Gastrostomy tube intact. Midline incision with dressing. NEUROLOGIC: Nonverbal. Patient able to communicate by nodding his head yes or no. Quadriplegic. ASSESSMENT: 1. Malnutrition, patient failed swallow screen, s/p unsuccessful attempts of Dobbhoff insertion 2. Aborted upper endoscopy for PEG tube placement, unable to intubate esophagus 3. S/P open gastrostomy tube and repair of incisional hernia 4. Clogged gastrostomy tube secondary to medication administration 5. Fecal impaction PLAN: Continue tube feedings All medications MUST be crushed and dissolved entirely before administering down feeding tube Patient is stable from a surgical standpoint. We will sign off. Please reconsult if needed. Nurse practitioner note has been reviewed by physician. Signing provider agrees with the documented findings, assessment, and plan of care. Objective - Vital Signs Vital signs: Vital Signs Temp 97.8 F 10/05/18 08:00 Pulse 81 10/05/18 11:30 Resp 19 10/05/18 08:00 BP 140/72 10/05/18 08:00 Pulse Ox 94 L 10/05/18 08:00 Intake & Output 10/04/18 10/05/18 10/05/18 18:59 06:59 18:59 Intake Total 1390 2299.6667 520 Output Total 1350 660 150 Balance 40 1639.6667 370 Weight 68 kg 68 kg Intake: IV 1320 1120 440 Dextrose 5%-0.9% NaCl 1, 240 240 80 000 ml @ 20 mls/hr IV . Q24H [facility] Rx#:[id number] Meropenem 1 gm In Sodium 200 100 100 Chloride 0.9% 100 ml @ 200 mls/hr IVPB Q8HR [facility] Rx#:[id number] Potassium Chloride 10 meq 100 In Water For Injection 1 100ml.bag @ 100 mls/hr IVPB Q1H [facility] Rx#: [id number] Potassium Phosphate 20 780 780 260 mmol Mvi, Adult No.4 with Vit K 10 ml Trace (Conc- 1Ml/Dose) 1 ml Sodium Acetate 30 meq Magnesium Sulfate gm 1 gm Calcium Gluconate 1 gm Potassium Chloride 20 meq In Amino Acid 4.25%-D10w 1,000 ml @ 65 mls/hr IV .BY DURATION [facility] Rx#: [id number] Intake, IV Titration 1179.6667 Amount Diltiazem 125 mg In 125 Sodium Chloride 0.9% 100 ml @ 5 MG/HR 5 mls/hr IV .Q24H [facility] Rx#:[id number] Potassium Phosphate 20 1054.6667 mmol Mvi, Adult No.4 with Vit K 10 ml Trace (Conc- 1Ml/Dose) 1 ml Sodium Acetate 30 meq Magnesium Sulfate gm 1 gm Calcium Gluconate 1 gm Potassium Chloride 20 meq In Amino Acid 4.25%-D10w 1,000 ml @ 65 mls/hr IV .BY DURATION [facility] Rx#: [id number] Tube Feeding 40 80 Other 30 Output: Urine 1350 660 150 Other: Voiding Method Indwelling Catheter Indwelling Catheter - Labs CBC & Chem 7: 10/05/18 05:22 10/05/18 05:22 Labs: Abnormal Lab Results - Last 24 Hours (Table) 10/04/18 10/04/18 10/05/18 Range/Units 18:06 23:57 02:00 WBC (3.8-10.6) k/uL RBC (4.30-5.90) m/uL Hgb (13.0-17.5) gm/dL Hct (39.0-53.0) % MCV (80.0-100.0) fL MCHC (31.0-37.0) g/dL Plt Count (150-450) k/uL Lymphocytes # (1.0-4.8) k/uL Sodium (137-145) mmol/L Potassium (3.5-5.1) mmol/L BUN (9-20) mg/dL Glucose (74-99) mg/dL POC Glucose (mg/dL) 160 H 178 H (75-99) mg/dL Albumin (3.5-5.0) g/dL Urine Protein 1+ H (Negative) Urine Blood Small H (Negative) Ur Leukocyte Esterase Large H (Negative) Urine WBC 42 H (0-5) /hpf Amorphous Sediment Rare H (None) /hpf Hyaline Casts 162 H (0-2) /lpf Urine Mucus Rare H (None) /hpf Urine Yeast (Budding) Many H (None) /hpf 10/05/18 10/05/18 10/05/18 Range/Units 05:22 05:22 05:52 WBC 2.3 L (3.8-10.6) k/uL RBC 2.86 L (4.30-5.90) m/uL Hgb 9.1 L (13.0-17.5) gm/dL Hct 29.9 L (39.0-53.0) % MCV 104.6 H (80.0-100.0) fL MCHC 30.5 L (31.0-37.0) g/dL Plt Count 139 L (150-450) k/uL Lymphocytes # 0.2 L (1.0-4.8) k/uL Sodium 136 L (137-145) mmol/L Potassium 3.3 L (3.5-5.1) mmol/L BUN 44 H (9-20) mg/dL Glucose 130 H (74-99) mg/dL POC Glucose (mg/dL) 142 H (75-99) mg/dL Albumin 2.3 L (3.5-5.0) g/dL Urine Protein (Negative) Urine Blood (Negative) Ur Leukocyte Esterase (Negative) Urine WBC (0-5) /hpf Amorphous Sediment (None) /hpf Hyaline Casts (0-2) /lpf Urine Mucus (None) /hpf Urine Yeast (Budding) (None) /hpf 10/05/18 Range/Units 12:08 WBC (3.8-10.6) k/uL RBC (4.30-5.90) m/uL Hgb (13.0-17.5) gm/dL Hct (39.0-53.0) % MCV (80.0-100.0) fL MCHC (31.0-37.0) g/dL Plt Count (150-450) k/uL Lymphocytes # (1.0-4.8) k/uL Sodium (137-145) mmol/L Potassium (3.5-5.1) mmol/L BUN (9-20) mg/dL Glucose (74-99) mg/dL POC Glucose (mg/dL) 104 H (75-99) mg/dL Albumin (3.5-5.0) g/dL Urine Protein (Negative) Urine Blood (Negative) Ur Leukocyte Esterase (Negative) Urine WBC (0-5) /hpf Amorphous Sediment (None) /hpf Hyaline Casts (0-2) /lpf Urine Mucus (None) /hpf Urine Yeast (Budding) (None) /hpf
[2018-10-05] MEDS: CHOLECALCIFEROL 400 UNIT TAB PO SCH (13:58)
[2018-10-05] MEDS: LACTATED RINGERS 1,000 ML IV SCH (13:58)
--- NOTE | 2018-10-05 20:55 | PN ---
PROGRESS NOTE DATE OF SERVICE: 10/05/2018 This 82-year-old gentleman who was admitted with bilateral multilobar aspiration pneumonia also had history for possible sepsis. The patient had a PEG tube inserted which is functioning well and goal is 70 mL/hour. The patient is stuporous. Upper limb DVT. Examination of the upper limb DVT was limited, but however, no other positive findings are noted at this time. The patient closely monitored in ICU. Patient is communicative and nonverbal. Multiple consultants are following the patient including surgery and as well as Cardiology and Pulmonary. PAST MEDICAL HISTORY: Reviewed. REVIEW OF SYMPTOMS: Review of systems could not be taken as mentioned earlier. CURRENT MEDICATIONS: Reviewed and include: 1. DuoNeb q.i.d. and p.r.n. 2. Eliquis 2.5 mg b.i.d. 3. Artificial tears. 4. Dulcolax 10 mg p.r.n. 6. Vitamin D3 400 units history daily. 7. TPN. 8. Diflucan 200 mg. 9. Lasix 40 mg b.i.d. 10.Robitussin. 11.Apresoline. 12.NovoLog. 13.Lactated Ringer's. 14.Synthroid. 15.Imodium. 16.Lopressor. 17.P.r.n. medications. PHYSICAL EXAM: Patient is stuporous. Pulse 75, blood pressure 116/72, respiration 18, temperature 97.2, pulse ox 98% on room air. HEENT: Conjunctivae normal. Oral mucosa moist. Neck is no jugular venous distention. No carotid bruit. No lymph node enlargement. Cardiovascular: S1, S2 muffled. Respiratory: Bilateral scattered rhonchi and crackles. Expiratory wheezing. ABDOMEN: Soft. PEG tube in situ. Legs are no edema, no swelling. CENTRAL NERVOUS SYSTEM: Unchanged. LAB STUDIES: WBC 2.2, hemoglobin 10.1, platelets 139. Sodium 136 and potassium 3.3. UA noted. ASSESSMENT: 1. Bilateral multilobar aspiration pneumonia with possible sepsis status post bronchoscopy and mucous plug removal. 2. Acute hypoxic respiratory failure requiring high-flow oxygen, down to nasal cannula. 3. Pseudomonas aeruginosa in the urine and Rosalie and E. coli from the sputum. 4. Status post PEG tube exchange and replacement of a blocked PEG tube. 5. On PPN. 6. Essential hypertension. 7. Recurrent fever. 8. Chronic quadriplegia with residual function in the right upper and lower limbs. 9. History of chronic neurogenic bladder with chronic suprapubic catheter. 10.Acute Coumadin toxicity, resolved with vitamin K. 11.Acute urinary tract infection secondary to suprapubic catheter present on admission. 12.Change in mental status, acute on chronic metabolic encephalopathy. 13.Peripheral neuropathy. 14.Paroxysmal atrial fibrillation, currently normal sinus rhythm. 15.Malnutrition with mild to moderate protein calorie malnutrition, status post PEG tube placement. 16.Mild pancytopenia, undetermined etiology. 17.FULL CODE. RECOMMENDATIONS AND DISCUSSION: In this 82-year-old gentleman who presented with multiple complex medical issues. We will monitor the patient closely. Continue the current medications, management and symptomatic treatment. Otherwise, at this time, I recommend continue the current medications. The cultures as mentioned earlier grew multiple organisms including Pseudomonas. The patient also had some mild pancytopenia etiology. I would recommend continue with broad-spectrum IV antibiotics. Supplement potassium. Monitor sodium closely. I would also recommend continue with Diflucan. I would also recommend repeat pancultures also at this time. further recommendations to follow. MMODL / IJN: [id number] / MTDD
--- NOTE | 2018-10-05 23:25 | PN ---
PROGRESS NOTE DATE OF SERVICE: 10/05/2018. REASON FOR FOLLOWUP: Pseudomonas UTI and aspiration pneumonia, new fever. INTERVAL HISTORY: The patient overall feels better and has improved with no fever recorded. The patient is hemodynamically stable. Not on any pressor support. He noticed significant swelling and numbness to the right lower extremity. Ultrasound was limited but did not show any DVT in the major veins of the arm. . No nausea, vomiting, or any diarrhea per nursing staff. PHYSICAL EXAMINATION: On examination, blood pressure 115/72 with a pulse of 75, temperature 98.2, he is 98% on high-flow oxygen. GENERAL DESCRIPTION: An elderly male lying in bed in no distress. HEENT examination, no pallor, no scleral icterus. Oral mucosa is dry. LUNGS: Unlabored breathing, decreased breath sounds at the bases. No wheezing. HEART: S1, S2. Regular rate and rhythm. ABDOMEN: Soft. EXTREMITIES: Right upper extremity did have some swelling and bruising to the lateral border. LABS: Hemoglobin 9.1, white count , BUN of 44, creatinine 0.95. DIAGNOSTIC IMPRESSION AND PLAN: 1. Patient with initial urinary tract infection with Pseudomonas aeruginosa, adequately treated. 2. Aspiration pneumonia, difficult to treat. Patient now with new fever, source likely catheter associated UTI with ____ yeast. Diflucan has been ordered. Fever seemed to have responded. We will continue for 7 days. The current Wilcox catheter should be changed. 3. The patient did have significant swelling of the right lower extremity. Will discontinue the midline. Maciej the area of the bruise. Mild compression and elevation. This was discussed with the RN. JOSSY / TREVORN: [id number] /
[2018-10-05 23:28] LABS: Glucose,Whole Blood 138 mg/dL (75-99)
[2018-10-06] MEDS: DEXTROSE 5%-0.9% NACL 1,000 ML IV SCH (00:23)
[2018-10-06] MEDS: LACTATED RINGERS 1,000 ML IV SCH (00:24)
[2018-10-06] MEDS ORDERED: POTASSIUM BICARBONATE/CIT AC 20 MEQ TABLET.EFF NG-TUBE SCH (02:00)
[2018-10-06 05:48] LABS: Glucose,Whole Blood 143 mg/dL (75-99)
[2018-10-06] MEDS: INSULIN ASPART (NovoLOG) 100 UNIT/ML VIAL SQ SCH ×3 (06:14→17:33)
[2018-10-06] MEDS ORDERED: ANIDULAFUNGIN 200 MG in SODIUM CHLORIDE 0.9% 200 ML IVPB ONE (08:43)
[2018-10-06 09:24] LABS: Albumin 2.3 g/dL (3.5-5.0); Calcium 8.3 mg/dL (8.4-10.2); Magnesium 2.1 mg/dL (1.6-2.3); Phosphorus 2.9 mg/dL (2.5-4.5); Potassium 4.3 mmol/L (3.5-5.1); Total Bilirubin 1.2 mg/dL (0.2-1.3); Total Protein 5.1 g/dL (6.3-8.2)
[2018-10-06 11:22] LABS: Glucose,Whole Blood 103 mg/dL (75-99)
[2018-10-06] MEDS: BISACODYL 10 MG SUPP RECTAL SCH (11:22)
[2018-10-06] MEDS: ACETAMINOPHEN TAB 325 MG TAB PO PRN (11:32)
[2018-10-06] MEDS: METOPROLOL TARTRATE 25 MG TAB PO SCH ×2 (11:33→20:25)
[2018-10-06] MEDS: MULTIVITAMINS, THERA 1 EACH TAB PO SCH (11:33)
[2018-10-06] MEDS: APIXABAN 2.5 MG TABLET PO SCH ×2 (11:33→20:26)
[2018-10-06] MEDS: FUROSEMIDE 10 MG/ML 2 ML VIAL IV SCH ×2 (11:34→20:32)
[2018-10-06] MEDS: PANTOPRAZOLE 40 MG/10 ML VIAL IVP SCH (11:34)
[2018-10-06] MEDS: LEVOTHYROXINE IVP 100 MCG/5 ML VIAL IV SCH (11:36)
[2018-10-06] MEDS: CHOLECALCIFEROL 400 UNIT TAB PO SCH (11:37)
[2018-10-06] MEDS: IPRATROPIUM-ALBUTEROL 3 ML NEB INHALATION SCH ×4 (12:38→19:31)
--- NOTE | 2018-10-06 12:51 | P.PN ---
Subjective Progress Note Date: 10/06/18 Principal diagnosis: Acute pseudomonas aeruginosa urinary tract infection and multilobar pneumonia This is an 82-year-old white male, known history of quadriplegia, admitted on 09/18/2018, main admitting diagnosis was sepsis, acute hypoxic respiratory failure, aspiration pneumonia, Pseudomonas urinary tract infection, electrolytes imbalance, coagulopathy and thrombocytopenia. His blood cultures have been negative since admission, his urine cultures were positive for pseudomonas aeruginosa sputum cultures positive for Rosalie albicans and E. coli. Patient was seen by Dr. Rivas on consultation, and he was treated with Merrem, he underwent a bronchoscopy and bronchoalveolar lavage, and it was eventually recommended that the patient needs a PEG tube placement. Dr. lópez saw the patient on consultation, and he underwent a trial of PEG tube placement, however numerous attempts were made and esophagus could not be intubated. Then it was the recommendation of undergoing surgical approach for a PEG tube placement and this would be done today by Dr. Christian. I saw the patient today in the ICU, he looks very comfortable, he is on 2 L nasal cannula, in no distress, he seems quite edematous and I believe that's probably because of his poor nutritional status, and hypoalbuminemia. Patient is on TPN for nutritional support. He is also on antibiotics for UTI and pneumonia. Labs were reviewed had a relatively normal electrolytes, normal renal profile, hemoglobin is 7.6. WBC count is 3.2. His last chest x-ray from 09/25 showed cardiomegaly and small pleural effusions, and bilateral airspace disease. Patient was reevaluated today on 09/28/2018, patient remains in the ICU, he underwent open gastrostomy tube placement yesterday by Dr. Christian. The procedure went fine, patient remains in the ICU, and the tube is yet to be used today. Patient is feeling fine, does not seem to be in any distress. He still on antibiotics for multilobar pneumonia and he is also on antibiotics for pseudomonal Urinary tract infection. Patient had normal labs including basic metabolic profile. His hemoglobin remains low at 7.2, it was 8.32 days ago, and it was 7.6 yesterday. Patient is comfortable, he is not in any distress, and he is hemodynamically stable. Reevaluated today on 09/29/2018, remains in the ICU, having issues with the patency of the PEG tube, surgery is to address that issue today. Could not be used yet for feeding, hopefully the issue will be fixed by later today then we can start enteral feeding on this patient, and eventually discontinue TPN. Clinically however the patient is about the same, remains on TPN, remains on antibiotics for his multilobar pneumonia, and remains on antibiotics for his pseudomonal urinary tract infection. Hemoglobin is holding at 7.1. Elective lites are normal renal profile is normal. No chest x-ray was done today. Chest x-ray from yesterday was reviewed. Reevaluated today on 09/30/2018, patient is still in the ICU, still on TPN, remains on antibiotics, his overall condition is about the same. We are however having issues with his PEG tube which seems to be plugged, and multiple attempts were made by the surgeon to unplug the PEG tube, but all trials have failed. Discussed that with the surgeon, I believe he is planning to take him back to the operating room early next week. In the meantime we are keeping the patient on TPN. Keeping him on all the present supportive care measures and all anti biotics, patient is extremely frail, he is paraplegic, and I have a strong feeling that his prognosis is going to be extremely poor considering his overall condition. His hemoglobin today was noted to be low at 6.6, and I have recommended a blood transfusion with 1 unit of packed RBCs. His electrolytes are normal except for low potassium being corrected as per protocol. Chest x- ray today showed definite improvement in his right upper lobe infiltrate and left lower lobe infiltrate, but not completely resolved. Patient was reevaluated today on 10/01/2018, remains in the ICU, remains on TPN, remains on few liters nasal cannula, and he remains on multiple antibiotics for his pneumonia and urinary tract infection.and his hemoglobin is up to 8.8, did receive 3 units of packed RBCs yesterday. Electrolytes and renal profile are normal, CBC is relatively unremarkable. No chest x-ray was done. We continue to have problems with the blockage of the PEG tube, multiple attempts have failed to unplug it. Patient may require surgical intervention and again next week. Patient was reevaluated today on 10/02/2018, remains in the ICU, on TPN, on few liters nasal cannula, on antibiotics, and we still have issue with his PEG tube. Dr. Christian is planning to replace it next week. He may do this at bedside. Chest x-ray continues to show right upper lobe infiltrate, and left lower lobe consolidation. All labs were reviewed. Patient remains on TPN for the time being. Reevaluated today on 10/03/2018, patient remains in the ICU, remains on TPN, however last night he desaturated, placed on a nonrebreather mask, and seems to be doing better this morning. His chest x-ray showed the same findings, mostly right upper lobe infiltrate, and left lower lobe consolidation basically about the same. Patient remains on antibiotics, remains on TPN, and was still have issue with his PEG tube being occluded, surgery is planning to replace tomorrow. I did increase the Lasix dose on this patient since he seems to be quite swollen and edematous today. On 10/04/2018 patient seen in follow-up in the intensive care unit, he is lethargic, but able to follow simple commands, not verbalizing. No acute distress, currently on 4 L of oxygen per nasal cannula and his pulse ox is 96%, still having a low-grade fevers with a T-max of 100.6F in the last 24 hours. Hemodynamically stable, maintenance IV fluid include D5.9 normal saline at a rate of 20 ML per hour, Cardizem is at 5 mg per hour and TPN is at 65 ML per hour. No new chest x-ray today, yesterday's chest x-ray showed patchy bilateral pulmonary infiltrates and atelectasis. Labs showed white blood cell count of 3.6, hemoglobin of 8.4, sodium was 137, potassium is 3.9, chloride was 101, CO2 is 32, BUN is 35 and creatinine is 0.87. Cultures have been reviewed, urine cultures positive for pseudomonas aeruginosa, sputum culture showed E. coli and Rosalie albicans, and bronchial washing cultures showed Rosalie albicans. He continues on IV Lasix of 40 mg every 12 hours, has not had significant diuresis, only -143 mL or less 24 hours. Patient's PEG tube has been occluded, patient is scheduled for PEG tube replacement today. Continues with generalized swelling. But overall no distress, we'll repeat chest x-ray tomorrow. On 10/05/2018 patient seen in follow-up in the intensive care unit, today he had his PEG tube replaced, tube feedings have been started, he is receiving vital LYLA rate of 20 with a goal of 35. Remains on TPN at a rate of 65 ML per hour, Cardizem drip has been transitioned to oral metoprolol per cardiology. Maintenance IV fluid 0.9 normal saline at a rate of 20 ML per hour. Oral Eliquis has been started for anticoagulation, patient has been on Lovenox, which will be discontinued now, he is on 4 L of oxygen per nasal cannula and his pulse ox is 98%, no fever or chills, hemodynamically patient is stable, he is able to open eyes and nod his head yes or no appropriately, but does not verbalize. On sounds are positive for scattered rhonchi, oral mucous membranes are dry. Today's labs have been reviewed, white blood cell, still 0.3, hemoglobin is 9.1, sodium is 136, potassium is 3.3, chloride is 100, BUN is 44 creatinine 0.95. Repeat urinalysis showed large amount of leuk trase, 42 of white blood cell count, many budding yeast. ID service is following, patient is currently covered with meropenem because of multiple antibiotic ALLERGIES. Blood cultures have been repeated and are pending at this time, urine culture has been repeated. Previous urine culture was positive for pseudomonas aeruginosa, bronchial wash cultures showed Rosalie albicans, sputum culture was positive for E. coli and Rosalie albicans. Today's chest x-ray showed bilateral infiltrates, and small effusions, right upper lobe consolidation appears to be slightly worse. Right upper arm is swollen, we'll check for DVT. On 10/06/2018 patient seen in follow-up on medical surgical floor. He is resting quietly in bed, he opens his eyes to voice, does not verbalize, currently on Ventimask, apparently patient uses a CPAP machine at home, which she does not have right now, and he was placed on a Ventimask, but no evidence of worsening hypoxemia, patient had been on 4-5 L per high flow nasal cannula and with a pulse ox of 94-95%, afebrile, hemodynamically stable. His PEG tube is functioning well, tube feedings and tolerated well, no nausea, no vomiting. Upper extremity was significantly swollen, midline catheter has been discontinued, patient has been treated with meropenem for urinary tract infectio n with pseudomonas aeruginosa. ID service is following and managing the antibiotics, currently on anidulafungin. Venous Doppler of the right upper extremity was a difficult study and could not be evaluated Objective - Vital Signs Vital signs: Vital Signs Temp 101.1 F H 10/06/18 11:58 Pulse 108 H 10/06/18 12:38 Resp 16 10/06/18 11:58 BP 111/62 10/06/18 11:58 Pulse Ox 92 L 10/06/18 11:58 Intake & Output 10/05/18 10/06/18 10/06/18 18:59 06:59 18:59 Intake Total 1275 1410 Output Total 1025 780 Balance 250 630 Weight 68 kg 66 kg Intake: IV 975 1010 Dextrose 5%-0.9% NaCl 1, 160 360 000 ml @ 20 mls/hr IV . Q24H MERRY Rx#:[id number] Meropenem 1 gm In Sodium 100 Chloride 0.9% 100 ml @ 200 mls/hr IVPB Q8HR MERRY Rx#:[id number] Potassium Phosphate 20 715 650 mmol Mvi, Adult No.4 with Vit K 10 ml Trace (Conc- 1Ml/Dose) 1 ml Sodium Acetate 30 meq Magnesium Sulfate gm 1 gm Calcium Gluconate 1 gm Potassium Chloride 20 meq In Amino Acid 4.25%-D10w 1,000 ml @ 65 mls/hr IV .BY DURATION MERRY Rx#: [id number] Tube Feeding 300 400 Output: Urine 1025 780 Other: Voiding Method Indwelling Catheter Indwelling Catheter - Exam GENERAL EXAM: Somnolent, but follows simple commands, opens eyes to voice, 82-year-old white male, on Ventimask comfortable in no apparent distress. HEAD: Normocephalic/atraumatic. EYES: Normal reaction of pupils, equal size. Conjunctiva pink, sclera white. NOSE: Clear with pink turbinates. THROAT: No erythema or exudates. NECK: No masses, no JVD, no thyroid enlargement, no adenopathy. CHEST: No chest wall deformity. Symmetrical expansion. LUNGS: Equal air entry with crackles, rhonchi CVS: Regular rate and rhythm, normal S1 and S2, no gallops, no murmurs, no rubs ABDOMEN: Soft, nontender. No hepatosplenomegaly, normal bowel sounds, no guarding or rigidity. PEG tube site is clean and intact, LAYLA feedings of vital AF infusing at 20 ML per hour, PEG tube has been replaced and is functioning satisfactorily. Suprapubic catheter in place EXTREMITIES: No clubbing, 2+ bipedal edema, no cyanosis, 2+ pulses and upper and lower extremities. 2+ right upper extremity edema MUSCULOSKELETAL: Muscle strength and tone normal. SPINE: No scoliosis or deformity SKIN: No rashes CENTRAL NERVOUS SYSTEM: Alert and oriented -1. Patient does not verbalize, com municates by nodding his head.No focal deficits, tone is normal in all 4 extremities. Chronic flexion contractures and atrophy of lower extremities - Labs CBC & Chem 7: 10/05/18 05:22 10/06/18 08:11 Labs: Abnormal Lab Results - Last 24 Hours (Table) 10/05/18 10/06/18 10/06/18 Range/Units 23:23 05:46 08:11 Sodium 136 L (137-145) mmol/L BUN 56 H (9-20) mg/dL POC Glucose (mg/dL) 138 H 143 H (75-99) mg/dL Calcium 8.3 L (8.4-10.2) mg/dL Alkaline Phosphatase 128 H (38-126) U/L Total Protein 5.1 L (6.3-8.2) g/dL Albumin 2.3 L (3.5-5.0) g/dL 10/06/18 Range/Units 11:20 Sodium (137-145) mmol/L BUN (9-20) mg/dL POC Glucose (mg/dL) 103 H (75-99) mg/dL Calcium (8.4-10.2) mg/dL Alkaline Phosphatase (38-126) U/L Total Protein (6.3-8.2) g/dL Albumin (3.5-5.0) g/dL Microbiology - Last 24 Hours (Table) 10/04/18 21:10 Blood Culture Gram Stain - Preliminary Blood 10/04/18 21:10 Blood Culture - Final Blood Assessment and Plan Plan: Assessment: 1 acute hypoxic respiratory failure secondary to pneumonia, most likely aspiration pneumonia unless for otherwise. His sputum cultures have been positive for E. coli and for Rosalie albicans. 2 acute urinary tract infection secondary to pseudomonas aeruginosa 3 hyponatremia on presentation, resolved since admission. 4 suprapubic catheter for recurrent urinary tract infection 5 quadriplegia secondary to previous cervical fracture 6 previous history of deep vein thrombosis maintained on retirement anticoagulation therapy 7 failed the swallow evaluation, patient is scheduled for PEG tube placement surgically today since previous attempts to do it under IV conscious sedation failed. 8 paroxysmal atrial fibrillation, 9 Coumadin toxicity on admission, resolved 10 history of hypertension 11 history of hypothyroidism 12 plugged PEG tube, multiple attempts to unplug the PEG tube have failed. May require surgery again. And his tube replacement in the meantime continue TPN per 12 status post open gastrostomy tube placement and repair of incisional hernia postoperative day #7 however the PEG tube seems to be nonfunctional at this point, may require replacement. Plan: Continue weaning FiO2, patient does not need to be on the Ventimask, he is maintaining good O2 saturations on 4-5 L per high flow nasal cannula, maintain aspiration precautions, he is tolerating tube feedings. Did have a recurrence of fever this morning, ID service is following. Currently on Anidulafungin, meropenem has been discontinued. Repeat blood cultures pending, Gram stain reveals yeast. Will continue to follow I performed a history & physical examination of the patient and discussed their management with my nurse practitioner, Poonam Myrick. I reviewed the nurse practitioner's note and agree with the documented findings and plan of care. Lung sounds are positive for some scattered rhonchi. The findings and the impression was discussed with the patient. I attest to the documentation by the nurse practitioner. Time with Patient: Less than 30
--- NOTE | 2018-10-06 13:59 | PN ---
PROGRESS NOTE DATE OF SERVICE: 10/06/2018 REASON FOR FOLLOWUP: New fever with evidence of positive blood cultures. INTERVAL HISTORY: The patient did spike another fever this morning of 101 degrees Fahrenheit. The patient is hemodynamically stable. The patient remains to be lethargic, sleepy and unable to provide any history. No nausea, vomiting or diarrhea per the nursing staff. It was advised to remove his midline yesterday that has not been removed yet. The patient was unable to provide any history. REVIEW OF SYSTEMS: Could not be reliably obtained. Positive points as mentioned in HPI. PAST MEDICAL AND SURGICAL HISTORY: Reviewed, no change. MEDICATION: Reviewed. PHYSICAL EXAMINATION: Blood pressure is 111/62 with a pulse of 108, temperature of 101.1. He is 92% on 4 L. General description is an elderly male, lying in bed in no distress. RESPIRATORY SYSTEM: Unlabored breathing, clear to auscultation anteriorly. HEART: S1, S2. Regular rate and rhythm. ABDOMEN: Soft, no guarding or rigidity. EXTREMITIES: No edema of the feet. LABS: BUN of 56, creatinine 1.01. Electrolytes have been normal. Blood culture with yeast. UA urine is also showing budding yeast. DIAGNOSTIC IMPRESSION AND PLAN: Patient with yeast, positive blood culture, source could be urine. However, midline source not entirely excluded. Has been advised to remove the midline, send the tip for the culture. His Wilcox catheter needs to be changed and new urine culture performed from the new Wilcox. Will discontinue the Diflucan and start the patient on 200 mg loading dose and 100 mg daily adjusting any further medication. No open wounds. Clinical response with sensitivities. Continue supportive care. MMODL / IJN: [id number] /
--- NOTE | 2018-10-06 16:11 | PN ---
PROGRESS NOTE DATE OF SERVICE: 10/06/2018 This is an 82-year-old gentleman who was admitted with multilobar aspiration pneumonia also had possible sepsis. Patient is running fever at this time. Patient also had an episode atrial fibrillation with fast ventricular rate. Multiple consultants are following the patient closely. The patient did have a 2D echo with Doppler earlier during his stay, which showed ejection fraction 50%-60 % and [id number] wall abnormalities also. The patient will be closely monitored. Patient continues to be stuporous. The patient is also on tube feeds, being transitioned back to tube feeds from TPN. PAST MEDICAL HISTORY: Reviewed. REVIEW OF SYSTEMS: Could not be taken. CURRENT MEDICATIONS ARE: 1. Tylenol 650 q.6 p.r.n. 2. DuoNeb q.i.d. and p.r.n. 4. Eliquis 2.5 mg b.i.d. 5. Artificial Tears. 6. Dulcolax 10 mg daily p.r.n. 7. Vitamin D3 four hundred mg daily. 8. Lasix 40 mg IV b.i.d. 9. Robitussin. 10.Apresoline 10 mg IV q.4 p.r.n. 11.Lactate ringers. 12.Synthroid. 13.Imodium. 14.Lopressor. 15.P.r.n. medications. 16.Narcan. 17.Protonix. PHYSICAL EXAM: Patient is stuporous. Pulse is 114, irregular, blood pressure is 111/60, respirations 16, temperature 92.1, pulse ox 92% on 10% Venti mask. HEENT: Conjunctivae normal. Oral mucosa moist. Neck is no jugular venous distention. CARDIOVASCULAR: S1, S2, RESPIRATION: Breath sounds reduced at the bases, scattered rhonchi, no crackles. ABDOMEN: Soft, nontender. LEGS: No edema, unchanged. LABS: At this time shows sodium is 136. WBC is not available. ASSESSMENT: 1. Bilateral multilobar aspiration pneumonia with possible sepsis, status post bronchoscopy and mucus plug removal. 2. Acute hypoxic respiratory failure requiring high-flow oxygen, down to nasal cannula. 3. Paroxysmal atrial fibrillation with fast ventricular rate. 4. Rosalie parapsilosis sepsis. 5. Pseudomonas aeruginosa in the urine and Rosalie and Escherichia coli from the sputum. 6. Status post PEG tube exchange and replacement for a blocked PEG tube. 7. On PPN. 8. Essential hypertension. 9. Recurrent fever. 10.Chronic quadriplegia with residual function in the right upper and lower limbs. 11.History of chronic neurogenic bladder with chronic suprapubic catheter. 12.Acute Coumadin toxicity with vitamin K. 13.Acute urinary tract infection secondary to suprapubic catheter, present on admission. 14.Change in mental status, acute on chronic metabolic encephalopathy. 15.Peripheral neuropathy. 16.Paroxysmal atrial fibrillation, currently normal sinus rhythm. 17.Malnutrition with mild to moderate protein calorie malnutrition, status post PEG tube placement. 18.Mild pancytopenia of undetermined etiology. 19.FULL CODE. RECOMMENDATION: In this 82-year-old gentleman who presented with multiple complex medical issues, will monitor the patient closely, continue with the current management and symptomatic treatment, continue with the bronchodilators. Continue with current antibiotics. Otherwise, guarded prognosis because of the multiple complex medical issues. I will recommend EKG. Cardiology consultation. Patient is already on Eliquis at this time. Otherwise, continue the antibiotics. Pancultures have been recommended. The blood culture showed Rosalie parapsilosis. Overall prognosis extremely guarded because of multiple complex medical issues and will follow the patient closely with multiple consultants, Infectious Disease, Surgery and Pulmonary. Guarded prognosis. Further recommendations to follow. Please note that the patient is currently on FULL CODE. MMODL / IJN: [id number] / MTDD
[2018-10-06 17:33] LABS: Glucose,Whole Blood 114 mg/dL (75-99)
[2018-10-06] MEDS: FAT EMULSION 20% 250 ML in EMPTY BAG 1 BAG IV SCH (20:06)
[2018-10-06] MEDS: OSELTAMIVIR 60 MG/10 ML ORAL SYRINGE PEG/G-TUBE SCH (20:26)
[2018-10-06] MEDS: METOCLOPRAMIDE 5 MG/ML 2 ML VIAL IVP SCH (23:50)
[2018-10-07 00:09] LABS: Glucose,Whole Blood 106 mg/dL (75-99)
[2018-10-07] MEDS: INSULIN ASPART (NovoLOG) 100 UNIT/ML VIAL SQ SCH ×4 (00:15→18:27)
[2018-10-07] MEDS: METOCLOPRAMIDE 5 MG/ML 2 ML VIAL IVP SCH ×3 (05:40→17:46)
[2018-10-07 05:52] LABS: Glucose,Whole Blood 107 mg/dL (75-99)
[2018-10-07] MEDS: IPRATROPIUM-ALBUTEROL 3 ML NEB INHALATION SCH ×4 (07:48→19:59)
[2018-10-07] MEDS: LACTATED RINGERS 1,000 ML IV SCH (09:10)
[2018-10-07] MEDS: LEVOTHYROXINE IVP 100 MCG/5 ML VIAL IV SCH (09:10)
[2018-10-07] MEDS: OSELTAMIVIR 60 MG/10 ML ORAL SYRINGE PEG/G-TUBE SCH ×2 (09:11→21:30)
[2018-10-07] MEDS: METOPROLOL TARTRATE 25 MG TAB PO SCH ×2 (09:11→21:26)
[2018-10-07] MEDS: MULTIVITAMINS, THERA 1 EACH TAB PO SCH (09:11)
[2018-10-07] MEDS: PANTOPRAZOLE 40 MG/10 ML VIAL IVP SCH (09:11)
[2018-10-07] MEDS: CHOLECALCIFEROL 400 UNIT TAB PO SCH (09:11)
[2018-10-07] MEDS: FUROSEMIDE 10 MG/ML 2 ML VIAL IV SCH ×2 (09:12→21:31)
[2018-10-07] MEDS: BISACODYL 10 MG SUPP RECTAL SCH (09:12)
[2018-10-07] MEDS: APIXABAN 2.5 MG TABLET PO SCH ×2 (09:12→21:26)
[2018-10-07 09:13] LABS: HCT 24.9 % (39.0-53.0); HGB 7.7 gm/dL (13.0-17.5); Hypochromasia Moderate; MCH 31.3 pg (25.0-35.0); MCHC 31.1 g/dL (31.0-37.0); MCV 100.6 fL (80.0-100.0); Macrocytosis Slight; Mean Platelet Volume 9.9; Platelet Count 116 k/uL (150-450); RBC 2.47 m/uL (4.30-5.90); RDW 14.9 % (11.5-15.5); WBC 2.2 k/uL (3.8-10.6)
[2018-10-07] MEDS: DEXTROSE 5%-0.9% NACL 1,000 ML IV SCH ×2 (09:13→16:25)
[2018-10-07] MEDS: ANIDULAFUNGIN 100 MG in SODIUM CHLORIDE 0.9% 100 ML IVPB SCH (09:15)
[2018-10-07 09:25] LABS: Albumin 2.2 g/dL (3.5-5.0); Calcium 8.1 mg/dL (8.4-10.2); Magnesium 2.1 mg/dL (1.6-2.3); Potassium 3.8 mmol/L (3.5-5.1); Total Bilirubin 0.9 mg/dL (0.2-1.3); Total Protein 4.9 g/dL (6.3-8.2)
[2018-10-07 10:56] LABS: Band Neutrophils % 1 %; Eosinophils # (M) 0.02 k/uL (0-0.7); Monocytes # (M) 0.26 k/uL (0-1.0); Neutrophils % (M) 45 %; Nucleated Red Blood Cells 0 /100 WBC (0-0); Total Cells Counted 100
[2018-10-07 13:03] LABS: Glucose,Whole Blood 113 mg/dL (75-99)
--- NOTE | 2018-10-07 14:41 | P.PN ---
Subjective We are asked to see Mr. Hoang again during this admission secondary to atrial fibrillation. He has a known history of paroxysmal atrial fibrillation and is currently maintained on Eliquis 2.5 mg twice a day and Lopressor 25 mg twice a day. Telemetry tracings review he is going in and out of atrial fibrillation with primarily controlled ventricular rates. He currently is in sinus mechanism. He is seen and examined resting comfortably lying flat in bed with a Ventimask on for oxygenation. He is nonverbal but does open his eyes. Blood pressure 110/49 heart rate of 92 and he has been febrile 101.1F. Laboratory data reviewed, WBC 2.2, hemoglobin 7.7, platelets 116, sodium 139, potassium 3.8, creatinine 1.15, magnesium 2.1. TSH was checked on admission was 2.41 as well as cardiac enzymes are negative 2. He has been started on IV Lasix per pulmonary care team secondary to upper extremity swelling. Most recent chest x- ray obtained October 05 reveals bilateral infiltrates and small effusions are stable. Echocardiogram obtained on this admission reveals preserved left ventricular systolic function with ejection fraction 55-60%, mild to moderate tricuspid regurgitation and moderate pulmonary hypertension with RVSP of 50 mmHg. GENERAL: Well-appearing, well-nourished and in no acute distress. Non-verbal. NECK: Supple without JVD or thyromegaly. LUNGS: Breath sounds clear to auscultation bilaterally. Respiration equal and unlabored. No wheezes, rales or rhonchi. Diminished bilaterally. HEART: Regular rate and rhythm with systolic ejection murmur at the base, no rubs or gallops. S1 and S2 heard. EXTREMITIES: Normal range of motion, no edema. No clubbing or cyanosis. Peripheral pulses intact. 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 If he is having bursts of a-fib additional dose of lopressor can be given if blood pressure tolerates. Ongoing medical management. We will follow as needed, please call with any further questions. Nurse Practitioner note has been reviewed, I agree with a documented findings and plan of care. Patient was seen and examined. Objective - Vital Signs Vital signs: Vital Signs Temp 100.0 F H 10/07/18 11:52 Pulse 103 H 10/07/18 11:52 Resp 12 10/07/18 11:52 BP 94/47 10/07/18 11:52 Pulse Ox 100 10/07/18 11:52 Intake & Output 10/06/18 10/07/18 10/07/18 18:59 06:59 18:59 Intake Total 400 675 800 Output Total 1600 1800 Balance 400 -925 -1000 Weight 65.5 kg 65.5 kg Intake: IV 160 240 Dextrose 5%-0.9% NaCl 1, 160 240 000 ml @ 20 mls/hr IV . Q24H [facility]ERRY Rx#:[id number] Intake, IV Titration 300 100 Amount Anidulafungin 100 mg In 100 100 Sodium Chloride 0.9% 100 ml @ 84 mls/hr IVPB DAILY MERRY Rx#:[id number] Lactated Ringers 1,000 ml 200 @ 20 mls/hr IV .Q24H MERRY Rx#:[id number] Tube Feeding 240 375 460 Output: Urine 1600 1800 Suprapubic 1600 600 Other: Voiding Method Indwelling Catheter Indwelling Catheter Indwelling Catheter # Bowel Movements 1 - Labs CBC & Chem 7: 10/07/18 08:21 10/07/18 08:21 Labs: Abnormal Lab Results - Last 24 Hours (Table) 10/06/18 10/06/18 10/07/18 Range/Units 14:30 17:31 00:07 WBC (3.8-10.6) k/uL RBC (4.30-5.90) m/uL Hgb (13.0-17.5) gm/dL Hct (39.0-53.0) % MCV (80.0-100.0) fL Plt Count (150-450) k/uL Neutrophils # (Manual) (1.3-7.7) k/uL Lymphocytes # (Manual) (1.0-4.8) k/uL Carbon Dioxide (22-30) mmol/L BUN (9-20) mg/dL Glucose (74-99) mg/dL POC Glucose (mg/dL) 114 H 106 H (75-99) mg/dL Calcium (8.4-10.2) mg/dL AST (17-59) U/L Alkaline Phosphatase (38-126) U/L Total Protein (6.3-8.2) g/dL Albumin (3.5-5.0) g/dL Influenza Type A RNA Detected H (Not Detectd) 10/07/18 10/07/18 10/07/18 Range/Units 05:50 08:21 08:21 WBC 2.2 L (3.8-10.6) k/uL RBC 2.47 L (4.30-5.90) m/uL Hgb 7.7 L (13.0-17.5) gm/dL Hct 24.9 L (39.0-53.0) % MCV 100.6 H (80.0-100.0) fL Plt Count 116 L (150-450) k/uL Neutrophils # (Manual) 1.00 L (1.3-7.7) k/uL Lymphocytes # (Manual) 0.90 L (1.0-4.8) k/uL Carbon Dioxide 32 H (22-30) mmol/L BUN 62 H (9-20) mg/dL Glucose 102 H (74-99) mg/dL POC Glucose (mg/dL) 107 H (75-99) mg/dL Calcium 8.1 L (8.4-10.2) mg/dL AST 70 H (17-59) U/L Alkaline Phosphatase 145 H (38-126) U/L Total Protein 4.9 L (6.3-8.2) g/dL Albumin 2.2 L (3.5-5.0) g/dL Influenza Type A RNA (Not Detectd) 10/07/18 Range/Units 13:02 WBC (3.8-10.6) k/uL RBC (4.30-5.90) m/uL Hgb (13.0-17.5) gm/dL Hct (39.0-53.0) % MCV (80.0-100.0) fL Plt Count (150-450) k/uL Neutrophils # (Manual) (1.3-7.7) k/uL Lymphocytes # (Manual) (1.0-4.8) k/uL Carbon Dioxide (22-30) mmol/L BUN (9-20) mg/dL Glucose (74-99) mg/dL POC Glucose (mg/dL) 113 H (75-99) mg/dL Calcium (8.4-10.2) mg/dL AST (17-59) U/L Alkaline Phosphatase (38-126) U/L Total Protein (6.3-8.2) g/dL Albumin (3.5-5.0) g/dL Influenza Type A RNA (Not Detectd) Microbiology - Last 24 Hours (Table) 10/06/18 08:49 Blood Culture - Preliminary Blood No Growth after 24 hours 10/05/18 20:39 Blood Culture Gram Stain - Preliminary Blood 10/06/18 10:40 Catheter Tip Culture - Preliminary Picc Line Yeast species 10/05/18 20:39 Blood Culture - Final Blood 10/04/18 21:10 Blood Culture Gram Stain - Preliminary Blood Blood Culture - Preliminary Rosalie parapsilosis
[2018-10-07] MEDS: ACETAMINOPHEN TAB 325 MG TAB PO PRN (16:11)
[2018-10-07] MEDS ORDERED: SODIUM CHLORIDE 0.9% 500 ML 500 ML IV ONE (16:16)
[2018-10-07 18:11] LABS: Glucose,Whole Blood 132 mg/dL (75-99)
--- NOTE | 2018-10-07 22:12 | PN ---
PROGRESS NOTE DATE OF SERVICE: 10/07/2018 This 82-year-old gentleman, admitted with multilobar aspiration pneumonia, also was found to be flu-positive. The patient is running a fever at this time. Patient remains FULL CODE per family's wishes. The patient also has ejection fraction of 50% to 60% with mild to moderate valve abnormalities also. Patient is being closely monitored. The patient is receiving PEG tube feeds at this time. A venous Doppler done showed a limited exam. As mentioned earlier, influenza A was positive. Past medical history reviewed. Review of systems could not be taken. UA noted. CURRENT MEDICATIONS: Reviewed. They include: 1. Tylenol 650 q.6 p.r.n. 2. DuoNeb q.i.d. and p.r.n. 3. Anidulafungin. 4. Eliquis 2.5 mg b.i.d. 5. Artificial Tears. 6. Dulcolax. 7. Vitamin D3. 8. Dextrose. 9. Lasix. 10.Apresoline. 11.NovoLog. 12.Synthroid. 13.Imodium. 14.Reglan. 15.Lopressor. 16.P.r.n. medications. 17.Tamiflu. 18.Protonix 40 mg daily. PHYSICAL EXAMINATION: Patient is stuporous. Pulse is 101, blood pressure 107/53, respiratory rate 20, temperature 100.5, pulse ox 97% on 10% Venti mask. HEENT: Conjunctivae normal. Oral mucosa moist. NECK: No jugular venous distention. No carotid bruit. No lymph node enlargement. CARDIOVASCULAR SYSTEM: S1, S2 muffled. RESPIRATORY SYSTEM: Breath sounds diminished at the bases. Bilateral scattered rhonchi and crackles. ABDOMEN: Soft, non-tender. LEGS: No edema. No swelling. NERVOUS SYSTEM: Diffusely weak. LABS: WBC 2.2, hemoglobin 7.7, platelets 116. Sodium 139, potassium 3.8, alkaline phosphatase 145. UA noted. ASSESSMENT: 1. Bilateral multilobar aspiration pneumonia with possible sepsis, status post bronchoscopy, mucus plug removal, present on admission. 2. Acute hypoxic respiratory failure requiring high-flow oxygen, down to nasal cannula. 3. Acute influenza A. 4. Continued fever and possible sepsis. 5. Paroxysmal atrial fibrillation with fast ventricular rate. 6. Rosalie parapsilosis sepsis. 7. Pseudomonas aeruginosa in the urine and rosalie and Escherichia coli from the sputum. 8. Status post PEG tube exchange and replacement with a blocked PEG tube. 9. On PPN. 10.Essential hypertension. 11.Recurrent fever. 12.Chronic quadriplegia with residual function in the right upper and lower limbs. 13.History of chronic neurogenic bladder with chronic suprapubic catheter. 14.Acute Coumadin toxicity with vitamin K. 15.Acute urinary tract infection secondary to suprapubic catheter, present on admission. 16.Change in mental status, acute on chronic metabolic encephalopathy. 17.Peripheral neuropathy. 18.Paroxysmal atrial fibrillation, currently normal sinus rhythm. 19.Malnutrition with mild to moderate protein-calorie malnutrition, status post PEG tube placement. 20.Mild pancytopenia of undetermined etiology. 21.FULL CODE. RECOMMENDATIONS AND DISCUSSION: I recommend to continue current medications, continue with the monitoring, symptomatic treatment. Continue with the empiric antibiotics. Catheter tip showed yeast; otherwise, the final blood cultures are pending at this time. The culture on 10/04 showed fungemia. Patient is on antifungal agents. Patient was found to have flu also, so I would also recommend antivirals. Multiple consultants are following the patient, including Infectious Disease and Pulmonary. Overall prognosis is extremely guarded because of multiple complex medical issues. Further recommendations to follow. MMODL / IJN: [id number] /
[2018-10-08 01:07] LABS: Glucose,Whole Blood 138 mg/dL (75-99)
[2018-10-08] MEDS: DEXTROSE 5%-0.9% NACL 1,000 ML IV SCH ×2 (01:45→17:01)
[2018-10-08] MEDS: METOCLOPRAMIDE 5 MG/ML 2 ML VIAL IVP SCH ×5 (01:46→23:41)
[2018-10-08] MEDS: INSULIN ASPART (NovoLOG) 100 UNIT/ML VIAL SQ SCH ×4 (01:46→18:18)
[2018-10-08 06:10] LABS: Glucose,Whole Blood 165 mg/dL (75-99)
[2018-10-08] MEDS: LACTATED RINGERS 1,000 ML IV SCH (06:31)
[2018-10-08] MEDS: IPRATROPIUM-ALBUTEROL 3 ML NEB INHALATION SCH ×4 (07:39→21:10)
[2018-10-08 08:31] LABS: HCT 24.8 % (39.0-53.0); HGB 7.8 gm/dL (13.0-17.5); Hypochromasia Moderate; MCH 31.1 pg (25.0-35.0); MCHC 31.4 g/dL (31.0-37.0); MCV 99.1 fL (80.0-100.0); Macrocytosis Slight; Mean Platelet Volume 10.3; Platelet Count 111 k/uL (150-450); RDW 15.3 % (11.5-15.5); WBC 2.1 k/uL (3.8-10.6)
[2018-10-08 08:47] LABS: Albumin 2.1 g/dL (3.5-5.0); Calcium 7.9 mg/dL (8.4-10.2); Phosphorus 2.9 mg/dL (2.5-4.5); Potassium 3.5 mmol/L (3.5-5.1); Total Bilirubin 0.8 mg/dL (0.2-1.3)
[2018-10-08] MEDS: BISACODYL 10 MG SUPP RECTAL SCH (09:26)
[2018-10-08] MEDS: CHOLECALCIFEROL 400 UNIT TAB PO SCH (09:32)
[2018-10-08] MEDS: FUROSEMIDE 10 MG/ML 2 ML VIAL IV SCH ×2 (09:32→20:50)
[2018-10-08] MEDS: APIXABAN 2.5 MG TABLET PO SCH ×2 (09:32→20:50)
[2018-10-08] MEDS: LEVOTHYROXINE IVP 100 MCG/5 ML VIAL IV SCH (09:32)
[2018-10-08] MEDS: PANTOPRAZOLE 40 MG/10 ML VIAL IVP SCH (09:36)
[2018-10-08] MEDS: OSELTAMIVIR 60 MG/10 ML ORAL SYRINGE PEG/G-TUBE SCH ×2 (09:36→20:50)
[2018-10-08] MEDS: METOPROLOL TARTRATE 25 MG TAB PO SCH ×2 (09:36→20:50)
[2018-10-08] MEDS: MULTIVITAMINS, THERA 1 EACH TAB PO SCH (09:36)
[2018-10-08 10:17] LABS: Eosinophils # (M) 0.02 k/uL (0-0.7); Lymphocytes # (M) 0.84 k/uL (1.0-4.8); Monocytes # (M) 0.34 k/uL (0-1.0); Neutrophils % (M) 43 %; Nucleated Red Blood Cells 0 /100 WBC (0-0); Total Cells Counted 100
[2018-10-08 12:12] LABS: Glucose,Whole Blood 153 mg/dL (75-99)
[2018-10-08] MEDS: ANIDULAFUNGIN 100 MG in SODIUM CHLORIDE 0.9% 100 ML IVPB SCH (12:37)
[2018-10-08 18:04] LABS: Glucose,Whole Blood 125 mg/dL (75-99)
[2018-10-09 01:36] LABS: Glucose,Whole Blood 192 mg/dL (75-99)
[2018-10-09] MEDS: INSULIN ASPART (NovoLOG) 100 UNIT/ML VIAL SQ SCH ×4 (01:38→17:53)
[2018-10-09] MEDS: DEXTROSE 5%-0.9% NACL 1,000 ML IV SCH ×3 (02:47→12:41)
[2018-10-09] MEDS: METOCLOPRAMIDE 5 MG/ML 2 ML VIAL IVP SCH ×3 (06:06→17:51)
[2018-10-09] MEDS: LACTATED RINGERS 1,000 ML IV SCH (06:07)
[2018-10-09 06:13] LABS: Glucose,Whole Blood 154 mg/dL (75-99)
[2018-10-09] MEDS: IPRATROPIUM-ALBUTEROL 3 ML NEB INHALATION SCH ×4 (07:13→19:51)
[2018-10-09 08:05] LABS: HCT 24.5 % (39.0-53.0); HGB 7.9 gm/dL (13.0-17.5); Hypochromasia Moderate; MCH 32.5 pg (25.0-35.0); MCHC 32.2 g/dL (31.0-37.0); Macrocytosis Slight; Platelet Count 138 k/uL (150-450); Potassium 3.3 mmol/L (3.5-5.1); RBC 2.42 m/uL (4.30-5.90); RDW 14.7 % (11.5-15.5); WBC 2.9 k/uL (3.8-10.6)
[2018-10-09] MEDS: MULTIVITAMINS, THERA 1 EACH TAB PO SCH (08:35)
[2018-10-09] MEDS: ANIDULAFUNGIN 100 MG in SODIUM CHLORIDE 0.9% 100 ML IVPB SCH (08:38)
[2018-10-09] MEDS: LEVOTHYROXINE IVP 100 MCG/5 ML VIAL IV SCH (08:52)
[2018-10-09] MEDS: FUROSEMIDE 10 MG/ML 2 ML VIAL IV SCH ×2 (08:53→20:40)
[2018-10-09] MEDS: CHOLECALCIFEROL 400 UNIT TAB PO SCH (08:53)
[2018-10-09] MEDS: APIXABAN 2.5 MG TABLET PO SCH ×2 (08:54→20:40)
[2018-10-09] MEDS: METOPROLOL TARTRATE 25 MG TAB PO SCH ×2 (08:54→20:40)
[2018-10-09] MEDS: PANTOPRAZOLE 40 MG/10 ML VIAL IVP SCH (08:54)
[2018-10-09] MEDS: BISACODYL 10 MG SUPP RECTAL SCH (08:54)
[2018-10-09] MEDS: OSELTAMIVIR 60 MG/10 ML ORAL SYRINGE PEG/G-TUBE SCH ×2 (08:54→20:40)
--- NOTE | 2018-10-09 09:26 | PN ---
PROGRESS NOTE DATE OF SERVICE: 10/08/2018 This 82-year-old gentleman who was admitted with bibasilar aspiration pneumonia is being closely monitored. The patient also had bronchoscopy. Patient had hypoxic respiratory failure. Patient also has influenza. No chest pain. No palpitations. EXAM: Pulse is 100, blood pressure is 95/51, respiratory 20, temperature a 100.1, pulse ox 97% on 4 L. HEENT is conjunctivae normal. NECK: No jugular venous distention. CARDIOVASCULAR: S1, S2 muffled. Respirations: Breath sounds diminished in the bases. Bilateral scattered rhonchi and crackles. Abdomen soft, nontender. Legs no edema. No swelling. CENTRAL NERVOUS SYSTEM: No focal deficits. LAB STUDIES: WBC 2.9, hemoglobin 7.2, platelets 111. Other labs are noted. ASSESSMENT: 1. Bilateral multilobar aspiration pneumonia with possible sepsis status post bronchoscopy, mucous plug removal and present on admission. 2. Acute hypoxic respiratory failure requiring high-flow oxygen, down to nasal cannula. 3. Acute influenza A. 4. Continued fever and possible sepsis. 5. Paroxysmal atrial fibrillation with fast ventricular rate. 6. Rosalie parapsilosis sepsis. 7. Pseudomonas aeruginosa in the urine and Rosalie and E coli from the sputum. 8. Status post PEG tube exchange and replacement with a blocked PEG tube. 9. On PPN. 10.Essential hypertension. 11.History of recurrent fever. 12.Chronic quadriplegia with the residual function in the right upper and lower lips. 13.History of chronic neurogenic bladder with chronic suprapubic catheter. 14.Acute Coumadin toxicity with vitamin K. 15.Acute urinary tract infection with secondary to suprapubic catheter present on admission. 16.Change in mental status with acute on chronic metabolic encephalopathy. 17.Peripheral neuropathy. 18.Paroxysmal atrial fibrillation. 19.Currently normal sinus rhythm. 20.Malnutrition, with mild to moderate protein calorie malnutrition, status post PEG tube placement. 21.Mild pancytopenia of undetermined etiology. 22.FULL CODE. RECOMMENDATIONS AND DISCUSSION: Recommend to continue current medications, continue to monitor, symptomatic treatment. Otherwise, at this time, I recommend continue with current medication. Continue broad spectrum IV antibiotics. Continue the rest of medications. Prognosis guarded. Further recommendations to follow. MMODL / IJN: [id number] /
[2018-10-09 11:11] LABS: Eosinophils # (M) 0.03 k/uL (0-0.7); Lymphocytes # (M) 0.84 k/uL (1.0-4.8); Monocytes # (M) 0.23 k/uL (0-1.0); Neutrophils % (M) 62 %; Nucleated Red Blood Cells 0 /100 WBC (0-0); Total Cells Counted 100
[2018-10-09 12:05] LABS: Glucose,Whole Blood 138 mg/dL (75-99)
[2018-10-09 17:37] LABS: Glucose,Whole Blood 136 mg/dL (75-99)
--- NOTE | 2018-10-09 20:59 | PN ---
PROGRESS NOTE DATE OF SERVICE: 10/09/2018. HISTORY: This 82-year-old gentleman admitted with acute bilateral multilobar aspiration pneumonia is being closely monitored. The patient is on multiple antibiotics. The patient continues to be stuporous. No chest pain. No palpitations. No fever. EXAM: Pulse is 107, blood pressure 122/62, respiration 20, temperature 100 degrees, pulse ox 98 percent. HEENT: Conjunctivae normal. NECK: Supple. CARDIOVASCULAR: S1 and S2 muffled. LUNGS: Breath sounds diminished at the bases. Bilateral scattered rhonchi and crackles. ABDOMEN: Soft, nontender. EXTREMITIES: Legs no swelling. NERVOUS SYSTEM: Diffusely weak. LAB STUDIES: WBC ntd, hemoglobin 7.9. ASSESSMENT: 1. Bilateral multilobar aspiration pneumonia with possible sepsis status post bronchoscopy, mucous plug removal, present on admission. 2. Acute hypoxic respiratory failure requiring high-flow oxygen. 3. Acute influenza. 4. Continued fever and possible sepsis. 5. Paroxysmal atrial fibrillation with fast ventricular rate. 6. Rosalie parapsilosis sepsis. 7. Pseudomonas aeruginosa of the urine and Rosalie and E. coli in the sputum. 8. Status post PEG tube exchange and replacement of a blocked PEG tube. 9. On PPI. 10.Essential hypertension. 11.History of recurrent fever. 12.Chronic quadriplegia with residual function in the right upper and lower limbs. 13.History of chronic neurogenic bladder with chronic suprapubic catheter. 14.Acute Coumadin toxicity treated with vitamin K. 15.Acute urinary tract infection secondary to suprapubic catheter present on admission. 16.Change in mental status with acute on chronic metabolic encephalopathy. 17.Peripheral neuropathy. 18.Paroxysmal atrial fibrillation. 19.Currently normal sinus rhythm. 20.Malnutrition with mild to moderate protein calorie malnutrition, status post PEG tube placement. 21.Mild pancytopenia of undetermined etiology. 22.Rosalie parapsilosis of the PICC line. 23.FULL CODE. RECOMMENDATIONS: Continue current management. Continue with symptomatic treatment with antifungal. The patient is on Eraxis. Dr. Wynne is following the patient closely. As mentioned earlier, the most recent cultures and PICC line also is positive for Rosalie parapsilosis. We will continue to monitor. Repeat blood cultures today and tomorrow. Otherwise, continue the rest of the medications. The patient is currently FULL CODE. Further recommendations to follow. Closely follow with Infectious Disease. MMODL / IJN: [id number] / ROGERS
[2018-10-10] MEDS: METOCLOPRAMIDE 5 MG/ML 2 ML VIAL IVP SCH ×5 (00:04→23:59)
[2018-10-10 00:08] LABS: Glucose,Whole Blood 134 mg/dL (75-99)
[2018-10-10] MEDS: INSULIN ASPART (NovoLOG) 100 UNIT/ML VIAL SQ SCH ×5 (00:08→23:59)
[2018-10-10] MEDS: LACTATED RINGERS 1,000 ML IV SCH (00:08)
[2018-10-10 06:12] LABS: Glucose,Whole Blood 192 mg/dL (75-99)
[2018-10-10] MEDS: IPRATROPIUM-ALBUTEROL 3 ML NEB INHALATION SCH ×4 (08:30→19:49)
[2018-10-10 08:34] LABS: Basophils % (A) 0 %; Eosinophils # (A) 0.2 k/uL (0-0.7); Eosinophils % (A) 3 %; HCT 27.4 % (39.0-53.0); HGB 8.5 gm/dL (13.0-17.5); Hypochromasia Moderate; Lymphocytes # (A) 0.9 k/uL (1.0-4.8); Lymphocytes % (A) 17 %; MCH 31.4 pg (25.0-35.0); MCHC 31.1 g/dL (31.0-37.0); Macrocytosis Slight; Mean Platelet Volume 8.5; Monocytes # (A) 0.3 k/uL (0-1.0); Monocytes % (A) 5 %; Neutrophils # (A) 3.7 k/uL (1.3-7.7); Neutrophils % (A) 72 %; Platelet Count 182 k/uL (150-450); RBC 2.71 m/uL (4.30-5.90); WBC 5.2 k/uL (3.8-10.6)
[2018-10-10 09:08] LABS: Calcium 8.6 mg/dL (8.4-10.2); Potassium 3.6 mmol/L (3.5-5.1)
[2018-10-10] MEDS: OSELTAMIVIR 60 MG/10 ML ORAL SYRINGE PEG/G-TUBE SCH ×2 (09:10→20:44)
[2018-10-10] MEDS: MULTIVITAMINS, THERA 1 EACH TAB PO SCH (09:11)
[2018-10-10] MEDS: FUROSEMIDE 10 MG/ML 2 ML VIAL IV SCH ×2 (09:11→20:44)
[2018-10-10] MEDS: METOPROLOL TARTRATE 25 MG TAB PO SCH ×2 (09:11→17:03)
[2018-10-10] MEDS: APIXABAN 2.5 MG TABLET PO SCH ×2 (09:15→20:44)
[2018-10-10] MEDS: CHOLECALCIFEROL 400 UNIT TAB PO SCH (09:15)
[2018-10-10] MEDS: BISACODYL 10 MG SUPP RECTAL SCH (09:15)
[2018-10-10] MEDS: LEVOTHYROXINE IVP 100 MCG/5 ML VIAL IV SCH (09:15)
[2018-10-10] MEDS: PANTOPRAZOLE 40 MG/10 ML VIAL IVP SCH (09:16)
[2018-10-10] MEDS: ANIDULAFUNGIN 100 MG in SODIUM CHLORIDE 0.9% 100 ML IVPB SCH (09:42)
--- NOTE | 2018-10-10 10:16 | P.CRDCN ---
History of Present Illness History of present illness: Patient is an 82-year-old male with past medical history paroxysmal atrial fibrillation, who is currently admitted for sepsis and pneumonia. During his admission he has been going in and out of atrial fibrillation with controlled ventricular rate. He is currently in sinus rhythm, however he is tachycardic at 120 bpm. On examination, who who has mild respiratory distress and is currently on Ventimask oxygenation. His heart rate is regular without abnormal heart sounds. His lungs are coarse with rhonchi throughout. No elevated JVP or lower extremity swelling. PHYSICAL EXAMINATION: This is a 82-year-old male in mild respiratory distress. HEENT: Head is atraumatic, normocephalic. Pupils are equal, round. Sclerae anicteric. Conjunctivae are clear. Mucous membranes are dry. Neck is supple. There is no jugular venous distention. No carotid bruit is heard. CHEST EXAMINATION: Lungs are coarse with rhonchi throughout. HEART EXAMINATION: Heart regular rate and rhythm. S1, S2 heard. Notably tachycardic. No murmurs, gallops or rub. ABDOMEN: Soft, nontender. Bowel sounds are heard. No organomegaly noted. EXTREMITIES: 2+ peripheral pulses with no evidence of peripheral edema and no calf tenderness noted. NEUROLOGIC EXAMINATION: Patient is nonresponsive due to underlying dementia. FINAL ASSESSMENT AND PLAN: Acute hypoxic respiratory failure secondary to pneumonia Pneumonia Paroxysmal atrial fibrillation, currently in sinus, on normal anticoagulation Hypertension Quadriplegic secondary cervical fracture PLAN: We will continue current cardiac medications. Additional Lopressor may be given for intermittent episodes of atrial fibrillation. We will follow as needed, please call with any further questions. Past Medical History Past Medical History: Atrial Fibrillation, Hypertension Additional Past Medical History / Comment(s): 2002 work related accident quadrapelgic , functional use of right hand History of Any Multi-Drug Resistant Organisms: ESBL Date of last positivie culture/infection: 07/03/18 MDRO Source:: URINE Past Surgical History: Orthopedic Surgery Additional Past Surgical History / Comment(s): Placement of suprapubic catheter r/t accident 2002, has internal pump with baclofen in abdomen Past Anesthesia/Blood Transfusion Reactions: No Reported Reaction Past Psychological History: No Psychological Hx Reported Smoking Status: Never smoker Past Alcohol Use History: None Reported Past Drug Use History: None Reported - Past Family History Mother History Unknown: Yes Additional Family Medical History / Comment(s): Mother at age 20 of sepsis Medications and Allergies Home Medications Medication Instructions Recorded Confirmed Type Acetaminophen Tab [Tylenol] 650 mg PO Q4H PRN 07/03/18 09/18/18 History Calcium Carbonate [Tums] 1,000 mg PO QID PRN 07/03/18 09/18/18 History Cholecalciferol [Vitamin D3] 400 unit PO DAILY 07/03/18 09/18/18 History Cranberry 425mg 425 mg PO BID 07/03/18 09/18/18 History Loperamide [Imodium] 2 mg PO QID PRN 07/03/18 09/18/18 History Loratadine [Claritin] 10 mg PO DAILY 07/03/18 09/18/18 History Magnesium Hydroxide [Milk of 2,400 mg PO DAILY PRN 07/03/18 09/18/18 History Magnesia] Metoprolol Tartrate [Lopressor] 12.5 mg PO BID 07/03/18 09/18/18 History Multivitamins, Thera [Multivitamin 1 tab PO DAILY 07/03/18 09/18/18 History (formulary)] Na Phos,M-B/Na Phos,Di-Ba [Fleet 133 ml RECTAL DAILY PRN 07/03/18 09/18/18 History Adult] Warfarin [Coumadin] 1 mg PO [id number] 07/03/18 09/18/18 History Acetaminophen Tab [Tylenol Tab] 650 mg PO Q4H PRN 09/18/18 09/18/18 History Beneprotein Powder 7 gm PO BID 09/18/18 09/18/18 History Bisacodyl [Dulcolax] 10 mg RECTAL DAILY PRN 09/18/18 09/18/18 History Levothyroxine Sodium [Synthroid] 25 mcg PO DAILY 09/18/18 09/18/18 History guaiFENesin SYRUP 100MG/5ML 200 mg PO DIRECTED PRN 09/18/18 09/18/18 History [Robitussin] Allergies Allergy/AdvReac Type Severity Reaction Status Date / Time adhesive AdvReac Rash/Hives Verified 09/18/18 13:54 Cephalosporins AdvReac Unknown Verified 09/18/18 13:54 ciprofloxacin AdvReac Rash/Hives Verified 09/18/18 13:54 NSAIDS (Non-Steroidal AdvReac Unknown Verified 09/18/18 13:54 Anti-Inflamma Penicillins AdvReac Nausea & Verified 09/18/18 13:54 Vomiting Quinolones AdvReac Unknown Verified 09/18/18 13:54 Sulfa (Sulfonamide AdvReac Rash/Hives Verified 09/18/18 13:54 Antibiotics) Physical Exam Vitals: Vital Signs Temp Pulse Pulse Pulse Resp BP Pulse Ox 10/10/18 08:41 104 H 10/10/18 08:31 108 H 10/10/18 05:00 97.2 F L 110 H 16 143/67 99 10/09/18 20:56 99.6 F 108 H 22 131/57 98 10/09/18 20:01 100 10/09/18 19:51 100 10/09/18 16:30 107 H 106 H 12 10/09/18 15:18 102 H 10/09/18 15:05 100 10/09/18 12:10 100.0 F H 107 H 12 120/54 98 10/09/18 11:30 88 10/09/18 11:18 90 Intake and Output 10/09/18 10/10/18 10/10/18 22:59 06:59 14:59 Intake Total 300 380 160 Output Total 925 2600 Balance -625 -2220 160 Intake: Tube Feeding 300 380 160 Output: Urine 925 2600 Suprapubic 2600 Other: Voiding Method Indwelling Catheter Weight 53 kg Results 10/10/18 07:46 10/10/18 07:46 CBC 10/10/18 Range/Units 07:46 WBC 5.2 (3.8-10.6) k/uL RBC 2.71 L (4.30-5.90) m/uL Hgb 8.5 L (13.0-17.5) gm/dL Hct 27.4 L (39.0-53.0) % Plt Count 182 (150-450) k/uL Comprehensive Metabolic Panel 10/10/18 Range/Units 07:46 Sodium 151 H (137-145) mmol/L Potassium 3.6 (3.5-5.1) mmol/L Chloride 111 H (98-107) mmol/L Carbon Dioxide 36 H (22-30) mmol/L BUN 45 H (9-20) mg/dL Creatinine 1.18 (0.66-1.25) mg/dL Glucose 135 H (74-99) mg/dL Calcium 8.6 (8.4-10.2) mg/dL Current Medications Generic Name Dose Route Start Last Admin Trade Name Freq PRN Reason Stop Dose Admin Acetaminophen 650 mg 10/06/18 11:29 10/07/18 16:11 Tylenol Tab PO 650 mg Q6HR PRN Administration Fever and/ or Pain Albuterol/Ipratropium 3 ml 09/18/18 16:00 10/10/18 08:30 Duoneb 0.5 Mg-3 Mg/3 Ml Soln INHALATION 3 ml RT-QID MERRY Administration Apixaban 2.5 mg 10/05/18 09:00 10/10/18 09:15 Eliquis PO 2.5 mg BID MERRY Administration Artificial Tears 1 drops 09/22/18 13:58 10/06/18 11:35 Artificial Tear Drops BOTH EYES 1 drops TID PRN Administration Dry Eye(s) Bisacodyl 10 mg 09/18/18 16:03 10/01/18 16:24 Dulcolax RECTAL 10 mg DAILY PRN Administration Constipation Bisacodyl 10 mg 10/02/18 09:00 10/10/18 09:15 Dulcolax RECTAL 10 mg DAILY MERRY Administration Cholecalciferol 400 unit 09/19/18 09:00 10/10/18 09:15 Vitamin D3 PO 400 unit DAILY [facility] Administration Furosemide 40 mg 10/03/18 21:00 10/10/18 09:11 Lasix IV 40 mg Q12HR MERRY Administration Guaifenesin/Dextromethorphan 10 ml 10/04/18 20:13 10/04/18 22:38 Robitussin Dm PO 10 ml Q6H PRN Administration Cough Hydralazine HCl 10 mg 09/21/18 03:56 09/23/18 13:31 Apresoline IVP 10 mg Q4HR PRN Administration Blood Pressure >160 systolic Lactated Ringer's 1,000 mls @ 20 mls/hr 10/04/18 05:51 10/10/18 00:08 Lactated Ringers IV Not Given .Q24H MERRY Anidulafungin 100 mg/ Sodium 100 mls @ 84 mls/hr 10/07/18 09:00 10/10/18 09:42 Chloride IVPB 84 mls/hr DAILY MERRY Administration Dextrose/Sodium Chloride 1,000 mls @ 20 mls/hr 10/09/18 12:30 10/09/18 12:41 Dextrose 5%-Ns Iv Soln IV 20 mls/hr .Q24H MERRY Administration Insulin Aspart 0 unit 09/27/18 00:30 10/10/18 06:11 Novolog SQ 2 unit Q6H MERRY Administration Protocol Levothyroxine Sodium 25 mcg 09/20/18 09:00 10/10/18 09:15 Synthroid Ivp IV 25 mcg DAILY MERRY Administration Loperamide HCl 2 mg 09/18/18 16:03 Imodium PO QID PRN Loose Stool Metoclopramide HCl 5 mg 10/07/18 00:00 10/10/18 06:03 Reglan IVP 5 mg Q6HR MERRY Administration Metoprolol Tartrate 25 mg 10/05/18 09:00 10/10/18 09:11 Lopressor PO 25 mg BID MERRY Administration Miscellaneous Information 1 each 09/24/18 06:37 Magnesium Per Protocol MISCELLANE DAILY PRN Per Protocol Protocol Miscellaneous Information 1 each 09/27/18 06:51 Phosphorus Per Protocol MISCELLANE DAILY PRN Per Protocol Protocol Miscellaneous Information 1 each 10/05/18 06:16 Potassium Per Protocol MISCELLANE DAILY PRN Per Protocol Protocol Multivitamins 1 each 09/19/18 09:00 10/10/18 09:11 Theragran PO Not Given DAILY MERRY Naloxone HCl 0.2 mg 09/18/18 15:13 Narcan IV Q2M PRN Opioid Reversal Oseltamivir Phosphate 30 mg 10/06/18 21:00 10/10/18 09:10 Tamiflu PEG/G-TUBE 30 mg BID MERRY Administration Pantoprazole Sodium 40 mg 09/19/18 09:00 10/10/18 09:16 Protonix IVP 40 mg DAILY MERRY Administration Intake and Output 10/09/18 10/10/18 10/10/18 22:59 06:59 14:59 Intake Total 300 380 160 Output Total 925 2600 Balance -625 -2220 160 Intake: Tube Feeding 300 380 160 Output: Urine 925 2600 Suprapubic 2600 Other: Voiding Method Indwelling Catheter Weight 53 kg 10/10/18 07:46 10/10/18 07:46
[2018-10-10 11:22] LABS: Glucose,Whole Blood 183 mg/dL (75-99)
[2018-10-10] MEDS: DEXTROSE 5%-0.9% NACL 1,000 ML IV SCH (17:03)
[2018-10-10 17:42] LABS: Glucose,Whole Blood 216 mg/dL (75-99)
--- NOTE | 2018-10-10 18:16 | XR ---
EXAMINATION TYPE: XR chest 1V portable DATE OF EXAM: 10/10/2018 COMPARISON: Prior chest x-ray 10/05/2018 HISTORY: Congestive heart failure TECHNIQUE: Single frontal view of the chest is obtained. FINDINGS: Patient is markedly rotated. Heart size is likely stable. There is some improvement in aer ation in the right upper lobe. Retrocardiac density is present obscuring the left hemidiaphragm, patc hy biapical increased density is noted. There are overlying cardiac leads. IMPRESSION: Rotated exam. Correlate for pneumonia versus atypical presentation of congestive heart f ailure, there may be associated effusion. Follow-up is recommended.
[2018-10-10] MEDS: ACETAMINOPHEN TAB 325 MG TAB PO PRN (20:43)
--- NOTE | 2018-10-10 20:44 | PN ---
PROGRESS NOTE DATE OF SERVICE: 10/10/2018 This 82-year-old gentleman who was admitted with multiple medical problems including bilateral multilobar aspiration pneumonia also had continuing fever and Rosalie parapsilosis sepsis. Multiple cultures are positive. Patient is running fever on and off. The most recent blood culture growing yeast. The patient is on antifungal medications. Infectious disease and multiple consultants are following the patient closely. The patient is stuporous currently. PAST MEDICAL HISTORY: Reviewed. REVIEW OF SYSTEMS: Could not be taken, the patient is stuporous. CURRENT MEDICATIONS: Reviewed and include: 1. Tylenol 650 q.4 p.r.n. 2. DuoNeb q.i.d. and p.r.n. 3. Anidulafungin. 4. Eliquis 2.5 mg b.i.d. 6. Dulcolax. 7. Vitamin D. 8. Lasix. 9. Robitussin. 10.Alprazolam. 11.Imodium. 12.Lopressor. 13.Replacement protocols. 14.Narcan. 15.Tamiflu. 16.Protonix. PHYSICAL EXAM: Patient is stuporous. Pulse is 107. Blood pressure is 120/58, respiration 20, temperature is normal 99.7, pulse ox 98 percent on 50% Venti mask. HEENT: Conjunctivae normal. Neck is no jugular venous distention. CARDIOVASCULAR: S1, S2 muffled. RESPIRATORY: Breath sounds diminished in the bases. Bilateral scattered rhonchi and crackles. ABDOMEN: Soft and nontender. No mass palpable. Legs: No edema. No swelling. CENTRAL NERVOUS SYSTEM: No focal deficits. LAB STUDIES: At this time shows: WBC 5.9, hemoglobin is 8.2, sodium 151. ASSESSMENT: 1. Bilateral multilobar aspiration pneumonia with possible sepsis status post bronchoscopy, mucous plugging, present on admission. 2. Acute hypoxic respiratory failure requiring high-flow oxygen. 3. Acute influenza. 4. Continued fever and possible sepsis. 5. Paroxysmal atrial fibrillation with fast ventricular rate. 6. Rosalie parapsilosis sepsis. 7. Pseudomonas aeruginosa in the urine and Rosalie and E. coli from the sputum. 8. Status post PEG tube exchange replacement with blocked PEG tube on PPI. 9. History of hypertension. 10.History of recurrent fever. 11.Chronic quadriplegia with residual function in the right upper and lower limbs. 12.History of chronic neurogenic bladder with chronic suprapubic catheter. 13.Acute Coumadin toxicity treated with vitamin K. 14.Acute urinary tract infection secondary to suprapubic catheter present on admission. 15.Change in mental status with acute on chronic metabolic encephalopathy. 16.Peripheral neuropathy. 17.Paroxysmal atrial fibrillation. 18.Currently normal sinus rhythm. 19.Malnutrition with mild to moderate protein calorie malnutrition, status post peg tube placement. 20.Mild pancytopenia of undetermined etiology. 21.Rosalie parapsilosis from the PICC line tip. 22.FULL CODE. RECOMMENDATIONS AND DISCUSSION: Recommend to continue current medications, monitoring and symptomatic treatment. Continue with antifungals. will perform a chest x-ray to evaluate fluid and electrolytes balance. Continue the rest of medications. Prognosis guarded because of multiple complex medical issues. further recommendations to follow. MMSAYL / TREVORN: [id number] / MTDD
[2018-10-10 23:20] LABS: Glucose,Whole Blood 131 mg/dL (75-99)
[2018-10-10 23:45] LABS: Anisocytosis Slight; Basophils % (A) 0 %; Eosinophils % (A) 0 %; HCT 28.3 % (39.0-53.0); HGB 8.8 gm/dL (13.0-17.5); Hypochromasia Marked; Lymphocytes # (A) 1.2 k/uL (1.0-4.8); Lymphocytes % (A) 14 %; MCH 30.7 pg (25.0-35.0); MCV 98.9 fL (80.0-100.0); Macrocytosis Slight; Mean Platelet Volume 11.4; Monocytes # (A) 0.3 k/uL (0-1.0); Monocytes % (A) 4 %; Neutrophils # (A) 6.6 k/uL (1.3-7.7); Neutrophils % (A) 80 %; Platelet Count 206 k/uL (150-450); RBC 2.86 m/uL (4.30-5.90); RDW 16.6 % (11.5-15.5); WBC 8.2 k/uL (3.8-10.6)
[2018-10-11 00:01] LABS: Albumin 2.6 g/dL (3.5-5.0); Calcium 8.7 mg/dL (8.4-10.2); Potassium 3.4 mmol/L (3.5-5.1); Total Bilirubin 0.9 mg/dL (0.2-1.3); Total Protein 5.7 g/dL (6.3-8.2)
[2018-10-11] MEDS: ACETAMINOPHEN TAB 325 MG TAB PO PRN ×3 (03:04→18:25)
[2018-10-11] MEDS: LACTATED RINGERS 1,000 ML IV SCH (05:00)
[2018-10-11 06:10] LABS: Glucose,Whole Blood 148 mg/dL (75-99)
[2018-10-11] MEDS: METOCLOPRAMIDE 5 MG/ML 2 ML VIAL IVP SCH ×3 (06:14→18:25)
[2018-10-11] MEDS: INSULIN ASPART (NovoLOG) 100 UNIT/ML VIAL SQ SCH ×3 (06:16→18:27)
[2018-10-11] MEDS: IPRATROPIUM-ALBUTEROL 3 ML NEB INHALATION SCH ×4 (07:47→19:04)
[2018-10-11 08:24] LABS: Basophils % (A) 1 %; Eosinophils # (A) 0.1 k/uL (0-0.7); Eosinophils % (A) 1 %; HCT 26.1 % (39.0-53.0); HGB 8.3 gm/dL (13.0-17.5); Hypochromasia Moderate; Lymphocytes # (A) 1.1 k/uL (1.0-4.8); Lymphocytes % (A) 19 %; MCH 32.6 pg (25.0-35.0); MCHC 31.9 g/dL (31.0-37.0); MCV 102.2 fL (80.0-100.0); Macrocytosis Slight; Monocytes # (A) 0.3 k/uL (0-1.0); Monocytes % (A) 5 %; Neutrophils # (A) 4.3 k/uL (1.3-7.7); Neutrophils % (A) 73 %; Platelet Count 209 k/uL (150-450); RBC 2.55 m/uL (4.30-5.90); RDW 14.7 % (11.5-15.5); WBC 5.9 k/uL (3.8-10.6)
[2018-10-11 08:25] LABS: Calcium 8.5 mg/dL (8.4-10.2); Potassium 3.5 mmol/L (3.5-5.1)
[2018-10-11] MEDS: METOPROLOL TARTRATE 25 MG TAB PO SCH ×2 (11:13→20:19)
[2018-10-11] MEDS: APIXABAN 2.5 MG TABLET PO SCH ×2 (11:13→20:19)
[2018-10-11] MEDS: MULTIVITAMINS, THERA 1 EACH TAB PO SCH (11:13)
[2018-10-11] MEDS: FUROSEMIDE 10 MG/ML 2 ML VIAL IV SCH ×2 (11:14→20:19)
[2018-10-11] MEDS: BISACODYL 10 MG SUPP RECTAL SCH (11:14)
[2018-10-11] MEDS: LEVOTHYROXINE IVP 100 MCG/5 ML VIAL IV SCH (11:14)
[2018-10-11] MEDS: ANIDULAFUNGIN 100 MG in SODIUM CHLORIDE 0.9% 100 ML IVPB SCH (11:14)
[2018-10-11] MEDS: CHOLECALCIFEROL 400 UNIT TAB PO SCH (11:14)
[2018-10-11] MEDS: PANTOPRAZOLE 40 MG/10 ML VIAL IVP SCH (11:16)
[2018-10-11 11:17] LABS: Glucose,Whole Blood 154 mg/dL (75-99)
[2018-10-11] MEDS: OSELTAMIVIR 60 MG/10 ML ORAL SYRINGE PEG/G-TUBE SCH ×2 (11:19→20:20)
[2018-10-11 16:48] LABS: Glucose,Whole Blood 143 mg/dL (75-99)
[2018-10-11] MEDS: DEXTROSE 5%-0.9% NACL 1,000 ML IV SCH ×2 (17:53→20:10)
--- NOTE | 2018-10-11 22:31 | PN ---
PROGRESS NOTE DATE OF SERVICE: 10/11/2018. REASON FOR FOLLOWUP: candidemia source possible midline that has been discontinued. INTERVAL HISTORY: The patient is running fever of 100.8-100.3 with 101.2 to be the highest yesterday evening. The patient remains to be lethargic on a Venti mask. No nausea, vomiting has been reported by the nursing staff. He has had been tolerating his tube feeds 48 mL an hour. He is unable to provide any history. PHYSICAL EXAMINATION: Blood pressure 126/52 with a pulse 109, temperature is 100.8. He is on Ventimask O2 sats. General description is an elderly male lying in bed in no distress. HEENT: Shows slight pallor. No scleral icterus. Oral mucosal membranes dry. LUNGS: Unlabored breathing with decreased breath sounds in the bases. No wheeze. Heart S1, S2. Regular rate and rhythm. Abdomen soft, no tenderness. Right arm swelling and redness has improved. LABS: Hemoglobin 8.3 with white count 5.9, BUN 54, creatinine 1.24. Troponin slightly elevated. DIAGNOSTIC IMPRESSION AND PLAN: Patient with Rosalie parapsilosis candidemia source possible in the midline which has been discontinued. Follow up blood culture has been negative, however, the patient continues to be running a fever and Rosalie parapsilosis are usually fluconazole sensitive. We will discontinue start the patient on Diflucan for an appendectomy. Repeat blood cultures. Repeat UA and cultures and monitor his clinical course closely. Plan of care has been discussed in detail with the admitting physician. MMODL / IJN: [id number] /
--- NOTE | 2018-10-12 00:16 | PN ---
PROGRESS NOTE DATE OF SERVICE: 10/11/2018 PRESENTING COMPLAINT: Fever, tired. INTERVAL HISTORY: This is a patient with multiple medical problems. He has chronic quadriplegia and his suprapubic catheter, baseline function, has some movement in right upper extremity. The patient is initially admitted with sepsis, pneumonia, UTI, Coumadin toxicity and status post bronchoscopy, mucous plugs removed. The patient has a PEG tube in place. The patient continues to spike fevers again. Being followed by Infectious Disease. The patient is rather lethargic. REVIEW OF SYSTEMS: Cannot be done as patient is rather lethargic. Does nod his head. MEDICATIONS: Current medications reviewed that include: DuoNeb, Eliquis, Artificial Tears, IV Diflucan, IV Lasix, IV Synthroid, p.o. Lopressor, Tamiflu and IV Protonix. EXAMINATION: VITAL SIGNS: Temperature 100.8, pulse 116, respiration 18, blood pressure 126/62, pulse ox on Venti mask. GENERAL APPEARANCE: Lying in bed, lethargic but arousable. EYES: Pupils equal. Conjunctivae pale. Oral cavity dry mucous membranes. NECK: JVD unable to assess. Mass not palpable. RESPIRATORY: Effort increased. LUNGS: Diminished breath sounds. CARDIOVASCULAR: First and second sounds normal. No edema. ABDOMEN: Soft, nontender. PEG tube in place. Suprapubic catheter in place. NEUROLOGICAL: Baseline the patient's has sensation of some activity in the right upper extremity, is somewhat swollen. INVESTIGATIONS: White count 5.9, hemoglobin 8.3, sodium 152, potassium 3.5, BUN 54, creatinine 1.24. Troponin 0.053. ASSESSMENT: 1. Bilateral multilobar aspiration pneumonia, status post bronchoscopy, mucous plugs removed. 2. Acute hypoxic respiratory failure, requiring high-flow oxygen initially. 3. Essential hypertension. 4. Chronic quadriplegia with residual function right upper extremity at baseline. 5. Chronic neurogenic bladder with chronic suprapubic catheter. 6. Acute Coumadin toxicity, reversed with vitamin K. 7. Acute urinary tract infection with suprapubic catheter and cystitis. Cultures had been positive for Pseudomonas Enterococcus faecalis. 8. Acute metabolic encephalopathy, worsening. 9. Peripheral neuropathy. 10.CODE STATUS: FULL CODE. 11.Paroxysmal atrial fibrillation currently in sinus rhythm. 12.PEG tube in place. 13.Hypernatremia free water deficit. PLAN: At this point will DC patient's IV fluids as the patient looks to be in free water deficits. Will gently increase the D5 50. Overall prognosis remains to be guarded. Quality of life is not good. Will address this again with the patient's daughter. Increase the lactated Ringer's. JOSSY / TREVORN: [id number] /
[2018-10-12] MEDS: FLUCONAZOLE IN NACL,ISO-OSM 400 MG in SALINE 1 200ML.BAG IVPB SCH ×2 (00:23→22:11)
[2018-10-12] MEDS: LACTATED RINGERS 1,000 ML IV SCH ×4 (00:23→22:13)
[2018-10-12] MEDS: METOCLOPRAMIDE 5 MG/ML 2 ML VIAL IVP SCH ×5 (00:27→23:26)
[2018-10-12] MEDS: ACETAMINOPHEN TAB 325 MG TAB PO PRN ×3 (02:04→23:29)
[2018-10-12 02:05] LABS: Glucose,Whole Blood 155 mg/dL (75-99)
[2018-10-12] MEDS: INSULIN ASPART (NovoLOG) 100 UNIT/ML VIAL SQ SCH ×4 (02:05→17:37)
[2018-10-12 03:35] LABS: Appearance,Urine Cloudy (Clear); Bacteria,Urine Rare /hpf; Bilirubin,Urine Negative (Negative); Blood,Urine Small (Negative); Budding Yeast,Urine Occasional /hpf; Color,Urine Yellow; Glucose,Urine (UA) Negative (Negative); Hyaline Casts,Urine 1 /lpf (0-2); Ketones,Urine Negative (Negative); Leukocyte Esterase,Urine Large (Negative); Mucus,Urine Rare /hpf; Nitrite,Urine Negative (Negative); PH, Urine 6.5 (5.0-8.0); Protein,Urine 2+ (Negative); RBC,Urine 5 /hpf (0-5); Specific Gravity,Urine 1.017 (1.001-1.035); Squamous Epithelial Cell,Urine 1 /hpf (0-4)
[2018-10-12 06:27] LABS: Glucose,Whole Blood 140 mg/dL (75-99)
[2018-10-12] MEDS: IPRATROPIUM-ALBUTEROL 3 ML NEB INHALATION SCH ×4 (08:25→21:34)
[2018-10-12 09:31] LABS: Calcium 8.8 mg/dL (8.4-10.2); Potassium 3.6 mmol/L (3.5-5.1)
[2018-10-12] MEDS: MULTIVITAMINS, THERA 1 EACH TAB PO SCH (10:58)
[2018-10-12] MEDS: PANTOPRAZOLE 40 MG/10 ML VIAL IVP SCH (10:59)
[2018-10-12] MEDS: CHOLECALCIFEROL 400 UNIT TAB PO SCH (10:59)
[2018-10-12] MEDS: APIXABAN 2.5 MG TABLET PO SCH ×2 (10:59→23:26)
[2018-10-12] MEDS: BISACODYL 10 MG SUPP RECTAL SCH (10:59)
[2018-10-12] MEDS: METOPROLOL TARTRATE 25 MG TAB PO SCH ×2 (10:59→23:25)
[2018-10-12] MEDS: OSELTAMIVIR 60 MG/10 ML ORAL SYRINGE PEG/G-TUBE SCH ×2 (11:00→23:26)
[2018-10-12] MEDS: LEVOTHYROXINE IVP 100 MCG/5 ML VIAL IV SCH (11:00)
[2018-10-12 11:06] LABS: Glucose,Whole Blood 141 mg/dL (75-99)
[2018-10-12] MEDS: AZTREONAM 2 GM in SODIUM CHLORIDE 0.9% 100 ML IVPB SCH ×2 (14:57→23:26)
[2018-10-12 17:15] LABS: Glucose,Whole Blood 147 mg/dL (75-99)
--- NOTE | 2018-10-12 21:08 | PN ---
PROGRESS NOTE DATE OF SERVICE: 10/12/2018. REASON FOR FOLLOW UP: 1. Candidemia secondary to midline infection. 2. UTI. INTERVAL HISTORY: The patient did spike a fever this morning of 101.6. The patient is hemodynamically stable. Not on any pressor support. Slight tachypnea reported by the nursing staff and the patient need for Ventimask. Has been tolerating tube feeds. No diarrhea reported. The patient himself was unable to provide any history. PHYSICAL EXAMINATION: Blood pressure 132/66 with a pulse of 102. T-max 101.6. He is 95% on Ventimask. General description is an elderly male lying in bed in no distress. Respiratory system: Unlabored breathing with decreased breath sounds in the bases. Heart S1, S2. Regular rate and rhythm. Abdomen soft. No tenderness. The patient did have extensive bruise on his right upper arm and right side of the trunk. LABS: BUN of 16, creatinine is 1.18. UA done early this morning did show large leukocyte esterase and WBC. DIAGNOSTIC IMPRESSION AND PLAN: 1. Patient with a fever which is multifactorial in this patient who did have significant bruise on the right side of his body. Plus component of urinary tract infection with Wilcox in that was recently changed. We will add Azactam 2 g q.24h to cover for possible gram-negative urinary tract infection. 2. The patient with candidemia secondary to midline therapy discontinue currently on Diflucan to continue for now. 3. Overall prognosis remains to be guarded. Continue supportive care. MMODL / IJN: [id number] /
[2018-10-12 23:51] LABS: Glucose,Whole Blood 168 mg/dL (75-99)
--- NOTE | 2018-10-13 01:38 | PN ---
PROGRESS NOTE DATE OF SERVICE: 10/12/2018 PRESENTING COMPLAINT: Fever. INTERVAL HISTORY: The patient with multiple medical problems with chronic quadriplegia GI, suprapubic catheter, baseline function and some wound in right upper extremity, admitted with sepsis, pneumonia, UTI and Coumadin toxicity. Status post bronchoscopy mucous plugs removed. The patient has PEG tube in place. Continues to spiking fevers. Seen by ID who added Azactam. Remains very lethargic, okay to be nodding his head. Has a bruising on the right flank on anticoagulation. REVIEW OF SYSTEMS: Cannot be done as patient rather lethargic. Only occasionally nod his head MEDICATIONS: Current medications reviewed that include Eliquis IV aztreonam started today IV fluconazole, IV Synthroid, lactated Ringer's, Lopressor, Tamiflu. PHYSICAL EXAMINATION: VITAL SIGNS: Temperature 101.5, pulse 121, respiration 20, blood pressure 97/53, pulse ox 92 percent on Venti mask. General appearance: Lying in bed, lethargic. Patient nods his head. Pupils equal. Conjunctivae pale. Oral cavity dry mucous membrane. Neck JVD unable to assess, mass palpable. RESPIRATORY: Effort increased. LUNGS: Diminished breath sounds. CARDIOVASCULAR: First and second sounds normal. No edema. ABDOMEN: Soft, nontender. PEG tube in place. Suprapubic catheter in place. Neurological: A baseline, the patient only has got some movement right upper extremity. May nod his head. INVESTIGATIONS: Sodium 156, potassium 3.6, BUN 60, creatinine 1.18. UA positive. The patient repeat cultures are pending. Last blood culture from October 06, 2018 showed Rosalie parapsilosis. ASSESSMENT: 1. Bilateral multilobar aspiration pneumonia, status post bronchoscopy mucous plugs removed. 2. Acute hypoxic respiratory failure, requiring high-flow oxygen initially. 3. Essential hypertension. 4. Chronic quadriplegia with residual function right upper extremity at baseline. 5. Chronic neurogenic bladder with chronic suprapubic catheter. 6. Acute Coumadin toxicity to reverse with vitamin K on presentation. 7. Acute urinary tract infection with suprapubic catheter and cystitis. Cultures have been positive for Pseudomonas and Enterococcus faecalis. 8. Acute metabolic encephalopathy not improving. 9. Peripheral neuropathy. 10.CODE STATUS: FULL CODE. 11.Paroxysmal atrial fibrillation currently in sinus rhythm. 12.PEG tube in place. 13.Hypernatremia. Free water deficit, slow to respond. 14.PEG tube in place. 15.Fungemia with repeated positive blood cultures for Rosalie parapsilosis. PLAN: Continue current medication and treatment, antibiotics. Did talk briefly to the patient's daughter over the phone. Did tell her to come in to talk about overall patient's clinical picture and prognosis which is rather poor. Patient at baseline has a poor functional status and continues to do poorly. The patient remains on IV fluids, lactated Ringer's. Check labs tomorrow. MMSAYL / IJN: [id number] /
[2018-10-13] MEDS: INSULIN ASPART (NovoLOG) 100 UNIT/ML VIAL SQ SCH ×4 (01:57→17:07)
[2018-10-13 06:19] LABS: Glucose,Whole Blood 130 mg/dL (75-99)
[2018-10-13] MEDS: AZTREONAM 2 GM in SODIUM CHLORIDE 0.9% 100 ML IVPB SCH ×3 (06:19→23:31)
[2018-10-13] MEDS: METOCLOPRAMIDE 5 MG/ML 2 ML VIAL IVP SCH ×4 (06:19→22:40)
[2018-10-13] MEDS: IPRATROPIUM-ALBUTEROL 3 ML NEB INHALATION SCH ×4 (08:07→20:19)
[2018-10-13] MEDS: PANTOPRAZOLE 40 MG/10 ML VIAL IVP SCH (08:21)
[2018-10-13] MEDS: CHOLECALCIFEROL 400 UNIT TAB PO SCH (08:22)
[2018-10-13] MEDS: OSELTAMIVIR 60 MG/10 ML ORAL SYRINGE PEG/G-TUBE SCH ×2 (08:22→22:35)
[2018-10-13] MEDS: MULTIVITAMINS, THERA 1 EACH TAB PO SCH (08:22)
[2018-10-13] MEDS: APIXABAN 2.5 MG TABLET PO SCH ×2 (08:22→22:43)
[2018-10-13] MEDS: BISACODYL 10 MG SUPP RECTAL SCH (08:22)
[2018-10-13] MEDS: LEVOTHYROXINE IVP 100 MCG/5 ML VIAL IV SCH (08:22)
[2018-10-13] MEDS: LACTATED RINGERS 1,000 ML IV SCH ×3 (08:23→22:40)
[2018-10-13] MEDS: METOPROLOL TARTRATE 25 MG TAB PO SCH ×2 (08:23→22:42)
[2018-10-13 09:37] LABS: Calcium 8.6 mg/dL (8.4-10.2); Potassium 3.7 mmol/L (3.5-5.1)
[2018-10-13 11:47] LABS: Glucose,Whole Blood 121 mg/dL (75-99)
--- NOTE | 2018-10-13 16:39 | PN ---
PROGRESS NOTE DATE OF SERVICE: 10/13/2018 REASON FOR FOLLOWUP: 1. Candidemia. 2. Urinary tract infection. 3. Right trunk and upper arm hematoma. INTERVAL HISTORY: The patient's overall fever pattern has improved. The last temperature was 101.5 reported yesterday evening around 6 p.m. No fever this morning. The patient remains lethargic. He has been tolerating his tube feeds. No diarrhea reported by the nursing staff. No nausea, no vomiting. The patient was unable to provide any history. PHYSICAL EXAMINATION: Blood pressure 120/67 with a pulse of 96, temperature 97. He is 95% on Ventimask. General description is an elderly male lying in bed in no distress. RESPIRATORY SYSTEM: Unlabored breathing. Coarse breath sounds at the bases bilaterally. HEART: S1, S2. Regular rate and rhythm. ABDOMEN: Soft. No tenderness. EXTREMITIES: No edema of the feet. LABS: BUN of 60, creatinine is 1.12. Sodium is 158. Repeat urine and blood cultures are currently pending. DIAGNOSTIC IMPRESSION AND PLAN: 1. Patient with Rosalie parapsilosis positive blood culture, source likely midline that has been discontinued. Repeat blood cultures of 10/09, 10/10 and 10/11/2018 have been negative. Currently on Diflucan. To continue the IV, transitioning to PEG tube on discharge to finish a 2- week course of therapy. 2. Patient with a new fever with concern for possible gram-negative catheter- associated urinary tract infection. Fever responded to Azactam that was added yesterday; to continue. 3. Patient did have a right trunk bruise that may be contributing to some of the fever. The area of the bruise has not extended beyond the lorena that was placed yesterday. Hemoglobin needs to be monitored closely. Continue with supportive care. MMODL / IJN: [id number] /
[2018-10-13 17:03] LABS: Glucose,Whole Blood 124 mg/dL (75-99)
--- NOTE | 2018-10-13 18:26 | XR ---
EXAMINATION TYPE: XR chest 1V portable DATE OF EXAM: 10/13/2018 COMPARISON: 10/10/2018 HISTORY: Congestion TECHNIQUE: Single frontal view of the chest is obtained. FINDINGS: Single view IMPRESSION: There is poor inspiration. There is some infiltrate and atelectasis at the lung bases. T here is no definite heart failure. There is coarsening of the pulmonary interstitial markings. Heart size is normal. There are chest leads. IMPRESSION: Infiltrates and atelectasis in both lungs appear increased on the right side and unchanged on the lef t side compared to old exam. No heart failure. There is probably some pulmonary fibrosis.
[2018-10-13] MEDS: FLUCONAZOLE IN NACL,ISO-OSM 400 MG in SALINE 1 200ML.BAG IVPB SCH (22:35)
[2018-10-13] MEDS: ACETAMINOPHEN TAB 325 MG TAB PO PRN (22:42)
[2018-10-13 23:17] LABS: Glucose,Whole Blood 99 mg/dL (75-99)
[2018-10-14] MEDS: INSULIN ASPART (NovoLOG) 100 UNIT/ML VIAL SQ SCH ×4 (00:38→17:48)
--- NOTE | 2018-10-14 05:18 | PN ---
PROGRESS NOTE DATE OF SERVICE: 10/13/2018 PRESENTING COMPLAINT: Tired. INTERVAL HISTORY: The patient with multiple medical problems presented with chronic problems with chronic quadriplegia, chronic suprapubic catheter, baseline function, has some movement of the right upper extremity, admitted with sepsis, pneumonia, UTI, Coumadin toxicity. Status post bronchoscopy for mucous plug that was removed. The patient has a PEG tube in place. Has been spiking fevers. The patient is on Azactam, on antifungals. Remains rather lethargic. May occasionally nod his head. Also has bruising on the right flank. Been on anticoagulation. REVIEW OF SYSTEMS: Cannot be done as patient is not able to really talk. CURRENT MEDICATIONS: Current medications are reviewed that include Eliquis, IV Azactam, IV Diflucan, lactated Ringer's, Lopressor. PHYSICAL EXAMINATION: On examination, temperature 97, pulse 105, respiratory 18, blood pressure 120/67, pulse ox 95% on Ventimask. GENERAL APPEARANCE: Lying in bed, tired, lethargic, occasionally will nod his head on command. EYES: Pupils equal. Conjunctivae pale. HENT: Oral cavity dry mucous membrane. NECK: JVD unable to assess. Mass not palpable. RESPIRATORY: Effort increased. LUNGS: Diminished breath sounds. Occasional crackles. CARDIOVASCULAR: First and second sounds normal. No edema. ABDOMEN: Soft, nontender. PEG tube in place. Suprapubic catheter in place with leakage around the same. NEUROLOGICAL: Patient is at baseline, only got some movement of the right upper extremity. INVESTIGATIONS: Sodium 158, potassium 3.7, chloride 124, BUN 60, creatinine 1.12. ASSESSMENT: 1. Bilateral multilobar aspiration pneumonia, status post bronchoscopy, mucous plugs removed. 2. Acute hypoxic respiratory failure, requiring high-flow oxygen initially. 3. Essential hypertension. 4. Chronic quadriplegia with residual function right upper extremity at baseline. 5. Chronic neurogenic bladder with chronic suprapubic catheter. 6. Acute Coumadin toxicity, reversed with vitamin K. 7. Acute urinary tract infection secondary to suprapubic catheter and cystitis. Cultures are positive for Pseudomonas and enterococcus faecalis. 8. Acute metabolic encephalopathy, slow to respond. 9. Peripheral neuropathy. 10.CODE STATUS: FULL CODE. 11.Paroxysmal atrial fibrillation currently in sinus rhythm. 12.PEG tube in place. 13.Hypernatremia, free water deficit, slow to respond. 14.Fungemia with repeat positive blood cultures for Rosalie parapsilosis. The patient's repeat blood culture was done last night. PLAN: Continue current medication and treatment plan. Chest x-ray was reviewed by me personally that shows infiltrates. I did speak to Dr. Rivas's to re-evaluate the care from a pulmonary standpoint. Prognosis remains guarded. Overall, patient is functional, is doing really poorly with not much improvement. Had a meeting with the patient's daughter, had a lengthy talk overall of the patient's guarded prognosis. Different options were discussed. At the present time, she decided to continue with current treatment plan. I did elude to hospice given overall poor functional status. decided at this point, she would like to continue current treatment plan. Will see how the patient does. JOSSY / JEROMY: [id number] /
[2018-10-14] MEDS: AZTREONAM 2 GM in SODIUM CHLORIDE 0.9% 100 ML IVPB SCH ×3 (06:12→22:55)
[2018-10-14] MEDS: METOCLOPRAMIDE 5 MG/ML 2 ML VIAL IVP SCH ×4 (06:17→22:54)
[2018-10-14 06:23] LABS: Glucose,Whole Blood 158 mg/dL (75-99)
[2018-10-14] MEDS: PANTOPRAZOLE 40 MG/10 ML VIAL IVP SCH (09:36)
[2018-10-14] MEDS: MULTIVITAMINS, THERA 1 EACH TAB PO SCH (09:37)
[2018-10-14] MEDS: METOPROLOL TARTRATE 25 MG TAB PO SCH ×2 (09:37→22:55)
[2018-10-14] MEDS: OSELTAMIVIR 60 MG/10 ML ORAL SYRINGE PEG/G-TUBE SCH ×2 (09:37→22:55)
[2018-10-14] MEDS: LEVOTHYROXINE IVP 100 MCG/5 ML VIAL IV SCH (09:38)
[2018-10-14] MEDS: BISACODYL 10 MG SUPP RECTAL SCH (09:40)
[2018-10-14] MEDS: APIXABAN 2.5 MG TABLET PO SCH ×2 (09:40→22:55)
[2018-10-14] MEDS: CHOLECALCIFEROL 400 UNIT TAB PO SCH (09:40)
[2018-10-14] MEDS: IPRATROPIUM-ALBUTEROL 3 ML NEB INHALATION SCH ×4 (09:45→19:55)
[2018-10-14 10:25] LABS: Calcium 8.6 mg/dL (8.4-10.2)
[2018-10-14 12:05] LABS: Glucose,Whole Blood 124 mg/dL (75-99)
[2018-10-14] MEDS: LACTATED RINGERS 1,000 ML IV SCH (13:29)
[2018-10-14] MEDS ORDERED: DEXTROSE 5% IN WATER 1,000 ML IV ONE (13:30)
[2018-10-14 16:50] LABS: Glucose,Whole Blood 129 mg/dL (75-99)
--- NOTE | 2018-10-14 19:51 | PN ---
PROGRESS NOTE DATE OF SERVICE: 10/14/2018 REASON FOR FOLLOWUP: 1. Rosalie parapsilosis candidemia secondary to midline infection. 2. Gram-negative urinary tract infection. INTERVAL HISTORY: The patient's overall fever pattern has improved, with no fever recorded in the last more than 24 hours. The patient remains lethargic, currently on Ventimask, tolerating his tube feeds. No diarrhea has been reported. No nausea or vomiting has been reported by the nursing staff. Patient himself was unable to provide any history. PHYSICAL EXAMINATION: Blood pressure 107/58 with a pulse of 95, temperature 98.9. He is 95% on Ventimask. General description is an elderly male lying in bed in no distress. RESPIRATORY SYSTEM: Unlabored breathing. Some coarse breath sounds in the bases. No wheeze. HEART: S1, S2. Regular rate and rhythm. ABDOMEN: Soft. No tenderness. LABS: BUN of 59, creatinine 1.03. Urine showing gram-negative bacilli and ID and sensitivities are pending. Blood culture repeat so far negative. DIAGNOSTIC IMPRESSION AND PLAN: 1. Patient with Rosalie parapsilosis candidemia. Source is likely midline that has been discontinued. Currently on Diflucan. Follow-up blood culture negative. Duration of antibiotic will be 2 weeks from his negative blood culture. 2. Patient with a new urinary tract infection, catheter-associated. Urine now showing a gram-negative. Patient responding to the Azactam. That will be continued, adjusting it further based on the culture report. Continue with supportive care. MMODL / IJN: [id number] /
[2018-10-14] MEDS: FLUCONAZOLE IN NACL,ISO-OSM 400 MG in SALINE 1 200ML.BAG IVPB SCH (22:01)
--- NOTE | 2018-10-14 23:39 | PN ---
PROGRESS NOTE DATE OF SERVICE: October 14, 2018. PRESENTING COMPLAINT: Tired. INTERVAL HISTORY: Patient has multiple medical problems, presented with chronic problems including chronic quadriplegia, chronic suprapubic catheter. Baseline has had some movement of the right upper extremity before admission, admitted with sepsis, pneumonia, UTI and Coumadin toxicity, status post bronchoscopy and mucus plug removal. Also has a PEG tube in place. The patient is now being treated for UTI and Rosalie infection of the blood. The patient remains to be very lethargic, tired, cough. REVIEW OF SYSTEMS: The patient is not really able to communicate. CURRENT MEDICATIONS: Reviewed that include IV aztreonam and IV Diflucan. PHYSICAL EXAMINATION: Temperature 98.4. Pulse 96, respiration 18, blood pressure 109/66. Pulse ox 95% on Venti mask. GENERAL APPEARANCE: Lying in bed, rather tired-appearing. EYES: Pupil equal. Conjunctivae normal. NECK: JVD unable to assess. Mass not palpable. Oral cavity dry with very poor condition of the dentition. RESPIRATORY: Effort increased. LUNGS: Diminished breath sounds. Occasional crackles. CARDIOVASCULAR: First and second sounds normal. No edema. ABDOMEN: Soft, nontender. PEG tube in place. Suprapubic catheter in place with some leakage around the same. NEUROLOGICAL: Patient has a baseline, has got quadriparesis with some movement of the right upper extremity. EXTREMITIES/DERMATOLOGICAL; some bruising of the right flank. INVESTIGATIONS: Sodium 161, potassium 4, chloride 130, BUN 59, creatinine 1.03. ASSESSMENT: 1. Bilateral multilobar pneumonia aspiration, status post bronchoscopy, mucous plugs removed. 2. Acute hypoxic respiratory failure, requiring high-flow oxygen initially. 3. Essential hypertension. 4. Chronic quadriplegia with residual function right upper extremity at baseline. 5. Chronic neurogenic bladder with chronic suprapubic catheter. 6. Acute Coumadin toxicity versus vitamin K. 7. Acute urinary tract infection secondary to suprapubic catheter and cystitis, cultures positive for Pseudomonas and Enterococcus faecalis. 8. Acute metabolic encephalopathy, slow to respond. 9. Peripheral neuropathy. 10.CODE STATUS: FULL CODE. 11.Paroxysmal atrial fibrillation currently in sinus rhythm. 12.PEG tube in place. 13.Hypernatremia from free water deficit, worsening. 14.Fungemia with positive blood cultures for Rosalie parapsilosis repeat fungal cultures pending. PLAN: Prognosis remains poor. The patient is on IV antibiotic, antifungals, not really responding much, though he does not he opens his eyes. Follow with Infectious Disease. Patient fluids have been changed to D5W. MMSAYL / IJN: [id number] /
[2018-10-15 00:10] LABS: Glucose,Whole Blood 102 mg/dL (75-99)
[2018-10-15] MEDS: INSULIN ASPART (NovoLOG) 100 UNIT/ML VIAL SQ SCH ×4 (00:10→18:05)
[2018-10-15] MEDS: AZTREONAM 2 GM in SODIUM CHLORIDE 0.9% 100 ML IVPB SCH ×3 (05:19→23:08)
[2018-10-15] MEDS: METOCLOPRAMIDE 5 MG/ML 2 ML VIAL IVP SCH ×3 (05:19→17:52)
[2018-10-15 06:48] LABS: Glucose,Whole Blood 157 mg/dL (75-99)
[2018-10-15] MEDS: PANTOPRAZOLE 40 MG/10 ML VIAL IVP SCH (07:51)
[2018-10-15] MEDS: ACETAMINOPHEN TAB 325 MG TAB PO PRN ×2 (07:51→21:57)
[2018-10-15] MEDS: BISACODYL 10 MG SUPP RECTAL SCH (07:51)
[2018-10-15] MEDS: CHOLECALCIFEROL 400 UNIT TAB PO SCH (07:52)
[2018-10-15] MEDS: OSELTAMIVIR 60 MG/10 ML ORAL SYRINGE PEG/G-TUBE SCH ×2 (07:52→21:57)
[2018-10-15] MEDS: LEVOTHYROXINE IVP 100 MCG/5 ML VIAL IV SCH (07:52)
[2018-10-15] MEDS: APIXABAN 2.5 MG TABLET PO SCH ×2 (07:53→21:57)
[2018-10-15] MEDS: METOPROLOL TARTRATE 25 MG TAB PO SCH ×2 (07:53→21:57)
[2018-10-15] MEDS: MULTIVITAMINS, THERA 1 EACH TAB PO SCH (07:53)
[2018-10-15 09:28] LABS: Basophils % (A) 0 %; Eosinophils # (A) 0.1 k/uL (0-0.7); Eosinophils % (A) 3 %; HCT 24.9 % (39.0-53.0); HGB 7.1 gm/dL (13.0-17.5); Hypochromasia Marked; Lymphocytes # (A) 0.7 k/uL (1.0-4.8); Lymphocytes % (A) 21 %; MCHC 28.6 g/dL (31.0-37.0); Macrocytosis Moderate; Mean Platelet Volume 9.8; Monocytes # (A) 0.1 k/uL (0-1.0); Monocytes % (A) 4 %; Neutrophils # (A) 2.3 k/uL (1.3-7.7); Neutrophils % (A) 70 %; Platelet Count 220 k/uL (150-450); RDW 14.2 % (11.5-15.5); WBC 3.3 k/uL (3.8-10.6)
[2018-10-15 09:30] LABS: MCV 108.1 fL (80.0-100.0)
[2018-10-15 09:44] LABS: Calcium 8.4 mg/dL (8.4-10.2); Potassium 3.5 mmol/L (3.5-5.1)
[2018-10-15] MEDS: IPRATROPIUM-ALBUTEROL 3 ML NEB INHALATION SCH ×4 (10:36→20:31)
[2018-10-15 11:24] LABS: Glucose,Whole Blood 141 mg/dL (75-99)
--- NOTE | 2018-10-15 16:59 | PN ---
PROGRESS NOTE DATE OF SERVICE: 10/15/2018 REASON FOR FOLLOWUP: 1. Rosalie parapsilosis candidemia secondary to midline infection. 2. Pseudomonas UTI. INTERVAL HISTORY: The patient is currently afebrile, with no fever recorded in the last 48 hours. The patient remains lethargic, tolerating his tube feeds. No nausea or vomiting has been reported or any diarrhea. PHYSICAL EXAMINATION: Blood pressure 95/41 with a pulse of 97, temperature 97. He is 94% on Ventimask. General description is an elderly male lying in bed in no distress. RESPIRATORY SYSTEM: Unlabored breathing with decreased breath sounds at the bases. HEART: S1, S2. Regular rate and rhythm. ABDOMEN: Soft. No tenderness. The left chest wall bruise has decreased in intensity. LABS: Hemoglobin 7.1, white count of 3.3 with a BUN of 50, creatinine 1.03. DIAGNOSTIC IMPRESSION AND PLAN: 1. Patient with Rosalie parapsilosis candidemia secondary to midline that has been discontinued. Follow-up blood culture negative. Currently on Diflucan to finish a 2-week course of therapy from his negative blood culture. 2. Patient with pseudomonas urinary tract infection, catheter-associated, currently covered with Azactam. Blood culture has been negative, fever resolved. To continue to finish a 10-day to 2-week course of therapy. Continue with supportive care. MMODL / IJN: [id number] /
[2018-10-15 17:21] LABS: Glucose,Whole Blood 145 mg/dL (75-99)
[2018-10-15] MEDS: FLUCONAZOLE IN NACL,ISO-OSM 400 MG in SALINE 1 200ML.BAG IVPB SCH (21:45)
--- NOTE | 2018-10-15 23:26 | PN ---
PROGRESS NOTE DATE OF SERVICE: October 15, 2018. PRESENTING COMPLAINT: Uncomfortable. INTERVAL HISTORY: Patient has multiple medical problems, presented with baseline chronic quadriplegia, chronic suprapubic catheter. Baseline had some movement of the right upper extremity before admission. Admitted with sepsis, pneumonia, UTI, Coumadin toxicity, status post bronchoscopy and mucus plug removal. Also had a PEG tube placed. Also patient treated for Pseudomonas UTI and Rosalie infection of the blood. The patient remains lethargic and doing poorly. Only responds very occasionally. Had a lengthy talk with the daughter yesterday. She wishes to continue with a FULL CODE. REVIEW OF SYSTEMS: Unable to assess, patient not able to communicate. CURRENT MEDICATIONS: Reviewed that include IV aztreonam and Diflucan. PHYSICAL EXAMINATION: VITAL SIGNS: Temperature 98.9, pulse 110, respiration 20, blood pressure 127/65, pulse ox 96% on Venti mask. GENERAL APPEARANCE: Lying in bed, rather exhausted appearing. EYES: Pupils equal. Conjunctivae normal. NECK: JVD unable to assess. Mass not palpable. Oral cavity dry with very poor dentition. RESPIRATORY: Effort increased. LUNGS: Decreased breath sounds. Some crackles. CARDIOVASCULAR: 1st and 2nd sounds normal. Some edema in the dependent area. ABDOMEN: Soft, nontender. PEG tube in place. Suprapubic catheter in place with leakage around the same. NEUROLOGICAL: Patient at the baseline. Slight quadriparesis with some movement of the right upper extremity. EXTREMITIES: Patient has some bruising of the right flank. INVESTIGATIONS: White count 3.3, hemoglobin 10.1, potassium 3.5, BUN 50, creatinine 1.03. Sodium is 160. ASSESSMENT: 1. Bilateral multilobar pneumonia aspiration, status post bronchoscopy mucous plugs removed. 2. Acute hypoxic respiratory failure, requiring high-flow oxygen initially, currently on nasal cannula. 3. Essential hypertension. 4. Chronic quadriplegia with residual function right upper extremity at baseline. 5. Chronic neurogenic bladder with chronic suprapubic catheter. 6. Acute Coumadin toxicity. The patient did get vitamin K. 7. Acute urinary tract infection secondary to suprapubic catheter and cystitis, cultures for Pseudomonas and Enterococcus faecalis. 8. Acute metabolic encephalopathy, worsening. 9. Peripheral neuropathy. 10.CODE STATUS: FULL CODE. 11.Paroxysmal atrial fibrillation currently in sinus rhythm. 12.PEG tube in place. 13.Hyponatremia from free water deficit, not improving. 14.Fungemia with positive blood cultures for Rosalie parapsilosis. 15. PLAN: Patient continues to do poorly. Remains on IV antibiotics, antifungals, functioning clinically rapidly deteriorate. The patient's daughter wishes the patient to be a FULL CODE. Infectious Disease on the case. MMODL / IJN: [id number] /
[2018-10-16] MEDS: METOCLOPRAMIDE 5 MG/ML 2 ML VIAL IVP SCH ×4 (00:46→18:08)
[2018-10-16 00:49] LABS: Glucose,Whole Blood 133 mg/dL (75-99)
[2018-10-16] MEDS: INSULIN ASPART (NovoLOG) 100 UNIT/ML VIAL SQ SCH ×4 (00:55→17:47)
[2018-10-16] MEDS: AZTREONAM 2 GM in SODIUM CHLORIDE 0.9% 100 ML IVPB SCH ×3 (05:59→21:12)
[2018-10-16] MEDS: ACETAMINOPHEN TAB 325 MG TAB PO PRN ×2 (06:11→12:27)
[2018-10-16 06:17] LABS: Glucose,Whole Blood 148 mg/dL (75-99)
[2018-10-16] MEDS: IPRATROPIUM-ALBUTEROL 3 ML NEB INHALATION SCH ×4 (08:49→19:20)
[2018-10-16 08:50] LABS: Calcium 8.2 mg/dL (8.4-10.2); Potassium 3.6 mmol/L (3.5-5.1)
[2018-10-16] MEDS: MULTIVITAMINS, THERA 1 EACH TAB PO SCH (09:18)
[2018-10-16] MEDS: APIXABAN 2.5 MG TABLET PO SCH ×2 (09:18→20:50)
[2018-10-16] MEDS: METOPROLOL TARTRATE 25 MG TAB PO SCH ×2 (09:18→21:36)
[2018-10-16] MEDS: LEVOTHYROXINE IVP 100 MCG/5 ML VIAL IV SCH (09:19)
[2018-10-16] MEDS: CHOLECALCIFEROL 400 UNIT TAB PO SCH (09:19)
[2018-10-16] MEDS: OSELTAMIVIR 60 MG/10 ML ORAL SYRINGE PEG/G-TUBE SCH (09:20)
[2018-10-16] MEDS: BISACODYL 10 MG SUPP RECTAL SCH (09:21)
[2018-10-16] MEDS: PANTOPRAZOLE 40 MG/10 ML VIAL IVP SCH (09:21)
[2018-10-16 11:20] LABS: Glucose,Whole Blood 148 mg/dL (75-99)
--- NOTE | 2018-10-16 12:59 | XR ---
EXAMINATION TYPE: XR chest 1V portable DATE OF EXAM: 10/16/2018 HISTORY: sob. REFERENCE: Previous study dated 10/13/2018. FINDINGS: There is worsening left basilar atelectasis. There is right upper lobe airspace disease. Th ere are small, bilateral effusions. Heart size is obscured. IMPRESSION: 1. WORSENING LEFT BASILAR AIRSPACE DISEASE. 2. CONTINUING RIGHT UPPER LOBE AIRSPACE DISEASE.
[2018-10-16 14:25] LABS: Glucose,Whole Blood 99 mg/dL (75-99)
[2018-10-16] MEDS ORDERED: LORazepam 2 MG/ML INJ ONE ×2 (14:40→14:46)
[2018-10-16] MEDS ORDERED: LORazepam 2 MG/ML INJ IV STA (14:43)
[2018-10-16] MEDS ORDERED: LIDOCAINE 2% GEL 30 ML TUBE TOPICAL ONE (14:43)
[2018-10-16] MEDS ORDERED: MIDAZOLAM (PF) 2 MG/2 ML VIAL IV STA (14:44)
[2018-10-16] MEDS ORDERED: SODIUM CHLORIDE 0.9% 1,000 ML IV ONE (15:09)
--- NOTE | 2018-10-16 15:50 | PN ---
PROGRESS NOTE I am covering for Dr. Pradhan. DATE OF SERVICE: 10/16/2018 This 82-year-old gentleman who was admitted with bilateral multilobar pneumonia also had bronchoscopy mucus plugging previously. The patient was improving. Subsequently patient had a PEG tube insertion. But today the patient had significant difficulty in breathing. The patient probably had an episode of aspiration, and repeat chest x-ray was done which was reviewed by me and showed evidence of bilateral infiltrates. Dr. Rivas is following the patient closely. The patient also had features of respiratory failure. Patient is on 50% non-rebreather mask at this time. The patient is transferred to ICU and possible bronchoscopy is also being planned. Past medical history reviewed. Review of systems could not be taken. The patient also had pseudomonas in the urine CURRENT MEDICATIONS: Reviewed. They include: 1. Tylenol p.r.n. 2. DuoNeb q.i.d. 3. Eliquis. 4. Artificial Tears. 5. Aztreonam 2 grams q.8. 6. Dulcolax. 7. Vitamin D3. 8. Fluconazole. 9. Robitussin. 10.Apresoline. 11.NovoLog. 12.Synthroid daily. 13.Lopressor. 14.Replacement protocols. 15.Narcan. 16.Protonix. PHYSICAL EXAMINATION: Patient is stuporous. Pulse is 112, blood pressure 115/56, respiration 32, temperature 100.2, pulse ox 90% on 50% Ventimask and 10 L. HEENT: Conjunctivae normal. NECK: No jugular venous distention. CARDIOVASCULAR SYSTEM: S1, S2 muffled. RESPIRATORY SYSTEM: Breath sounds diminished at the bases. Bilateral scattered rhonchi and crackles. Expiratory wheezing also present. ABDOMEN: Soft, non-tender. LEGS: No edema. No swelling. NERVOUS SYSTEM: No focal deficit. LABS: Sodium 161, potassium 3.6. WBC 3.1, hemoglobin 7.1. ASSESSMENT: 1. Rosalie parapsilosis sepsis. 2. Bilateral multilobar aspiration pneumonia with possible sepsis, status post bronchoscopy, mucus plugging, present on admission. 3. Recurrent aspiration with acute hypoxic respiratory failure. 4. Acute hypoxic respiratory failure requiring high-flow oxygen. 5. Acute influenza. 6. Continued fever and possible sepsis. 7. Paroxysmal atrial fibrillation with fast ventricular rate. 8. Rosalie parapsilosis sepsis. 9. Pseudomonas aeruginosa in the urine and rosalie and Escherichia coli from the sputum. 10.Status post PEG tube exchange/replacement with blocked PEG tube, on PPI. 11.History of hypertension. 12.History of recurrent fever. 13.Chronic quadriplegia with residual function in the right upper and lower limbs. 14.History of chronic neurogenic bladder with chronic suprapubic catheter. 15.Acute Coumadin toxicity, treated with vitamin K. 16.Urinary tract infection secondary to suprapubic catheter, present on admission. 17.Change in mental status, metabolic encephalopathy, acute on chronic. 18.Peripheral neuropathy. 19.Paroxysmal atrial fibrillation; currently normal sinus rhythm. 20.Malnutrition with mild to moderate protein-calorie malnutrition, status post PEG tube placement. 21.Mild pancytopenia of undetermined etiology. 22.Rosalie parapsilosis from the PICC line tip. 23.FULL CODE. RECOMMENDATIONS AND DISCUSSION: In this 82-year-old gentleman we will continue to monitor. Dr. Rivas is re- consulted. Intensive bronchodilator treatment. I would also recommend empiric antibiotics and D5 water because of the hypernatremia. Prognosis guarded because of multiple complex medical issues. See orders for details. Further recommendations to follow. MMODL / IJN: [id number] /
--- NOTE | 2018-10-16 16:04 | P.PN ---
Subjective Progress Note Date: 10/16/18 I reevaluated this 82-year-old male patient upon the request of the primary care as the patient's breathing has gotten worse over the past few days. At the time of my arrival, the patient was very much lethargic and obtunded. The patient was on a 50% Ventimask. His breathing was extremely noisy and the patient was obviously having significant amount of rest or secretions being get upper and lower respiratory tract secretions. The patient had a weak ineffective cough and the patient was obviously in respiratory failure tachypneic and was using some excessive muscle breathing. He was afebrile. He was tachycardic. He had coarse rhonchi throughout the lung petersen bilaterally. No significant signs of any congestion heart failure. He has a PEG tube through which she is receiving enteral feeding for nutritional support. Note that the patient is known to me. Of taking care of this patient in intensive care unit for acute hypoxic respiratory failure secondary to aspiration pneumonia. During this time the patient was given a PEG tube for enteral feeding and sutures support as the patient lost his ability to swallow. The patient is quadriplegic. He is known to have paroxysmal atrial fibrillation and has hypertension. I reviewed the records. I came to find other the patient was being treated for a rosalie parapsilosis the patient is currently on Diflucan and infectious disease on the case. The source of infection was the PICC line that was removed and the catheter tip was also positive. Subsequent blood cultures of been negative. The patient has also a pseudomonal urine checked infection currently is on Azactam. The patient's white cell count is at 3.3 with a hemoglobin of 7.1. The patient's sodium level is at 161 with a chloride level of 131. His BUN is at 49 with a creatinine of 0.9. The patient is on long-term anticoagulation with Eliquis. His cardiac rhythm was sinus. Objective - Vital Signs Vital signs: Vital Signs Temp 100.2 F H 10/16/18 12:27 Pulse 115 H 10/16/18 15:30 Resp 34 H 10/16/18 15:15 BP 65/48 10/16/18 15:15 Pulse Ox 100 10/16/18 15:15 Intake & Output 10/15/18 10/16/18 10/16/18 18:59 06:59 18:59 Intake Total 120 1020 1420 Output Total 1125 800 400 Balance -5101 366 7364 Weight 68 kg 62 kg 64.8 kg Intake: IV 200 1100 Aztreonam 2 gm In Sodium 100 Chloride 0.9% 100 ml @ 100 mls/hr IVPB Q8H [facility] Rx#:[id number] Dextrose 5%-0.9% NaCl 1, 200 000 ml @ 20 mls/hr IV . Q24H [facility] Rx#:[id number] Sodium Chloride 0.9% 1, 1000 000 ml @ 999 mls/hr IV . Q1H1M [facility] Rx#:[id number] Intake, IV Titration 300 Amount Aztreonam 2 gm In Sodium 100 Chloride 0.9% 100 ml @ 100 mls/hr IVPB Q8H [facility] Rx#:[id number] Fluconazole in NaCl,Iso- 200 Osm 400 mg In Saline 1 200ml.bag @ 100 mls/hr IVPB HS [facility] Rx#:[id number] Tube Feeding 120 520 320 Output: Urine 1125 800 400 Suprapubic 800 Other: Voiding Method Indwelling Catheter Indwelling Catheter Indwelling Catheter # Bowel Movements 1 1 - Exam Constitutional: The patient seems to is significant and severe respiratory distress. He has a weak cough. He has having difficulties in controlling his respiratory secretions., the patient is wearing a 50% Ventimask. He is not using his is and muscles of breathing for the time being. Eyes: Anicteric sclerae, moist conjunctiva, no lid-lag, PERRLA ENMT: NC/AT,Oropharynx clear, no erythema or exudates. The patient has significant valgus and his oral mucosa. No thrush seen. Neck:Supple, FROM, no masses, or JVD, No carotid bruits; No thyromegaly Lungs: Inspiratory and expiratory rhonchi and coarse breath sounds, increased respiratory effort, some accessory muscle . The breath sounds are markedly diminished. Crackles are appreciated throughout the lung petersen specially in the lower lobes bilaterally. Scattered rhonchi heard throughout the lung petersen bilaterally. Cardiovascular: Heart regular in rate and rhythm, No murmurs, gallops, or rubs no peripheral edema Abdominal: Soft Nontender, nom distended, no guarding, no rebound or rigidity, Normoactive bowel sounds No hepatomegaly, No splenomegaly, No palpable mass No abdominal wall hernia noted . The patient has a PEG tube in place Skin: Normal temperature, tone, texture, turgor, No induration No subcutaneous nodules, No rash, lesions, No ulcers Extremities:No digital cyanosis No clubbing, Pedal pulses intact and symme trical Radial pulses intact and symmetrical Normal gait and station, No calf tenderness Neuro: Quadriplegic, with flexion contractures and atrophy of lower extremities, the patient still not as conversive or functional - Labs CBC & Chem 7: 10/15/18 08:35 10/16/18 08:15 Labs: Abnormal Lab Results - Last 24 Hours (Table) 10/15/18 10/16/18 10/16/18 Range/Units 17:09 00:46 06:03 Sodium (137-145) mmol/L Chloride (98-107) mmol/L BUN (9-20) mg/dL Glucose (74-99) mg/dL POC Glucose (mg/dL) 145 H 133 H 148 H (75-99) mg/dL Calcium (8.4-10.2) mg/dL 10/16/18 10/16/18 Range/Units 08:15 11:17 Sodium 161 H* (137-145) mmol/L Chloride 131 H* (98-107) mmol/L BUN 49 H (9-20) mg/dL Glucose 135 H (74-99) mg/dL POC Glucose (mg/dL) 148 H (75-99) mg/dL Calcium 8.2 L (8.4-10.2) mg/dL Microbiology - Last 24 Hours (Table) 10/11/18 07:42 Blood Culture - Preliminary Blood No Growth after 120 hours 10/10/18 07:46 Blood Culture - Final Blood No Growth after 144 hours 10/11/18 21:50 Blood Culture - Preliminary Blood No Growth after 96 hours 10/09/18 17:54 Blood Culture - Final Blood No Growth after 144 hours Assessment and Plan Plan: Assessment 1 multilobar pneumonia with worsening in pulmonary infiltrates and persistent bilateral pulmonary infiltrates in the right upper lobe and the left lower lobe. After being treated in the intensive care unit. Weeks back, the patient was released and the patient was being treated on a medical floor and during the course of his treatment the patient was diagnosed having a candidal line in fection. In the interim, the patient's breathing got worse and the patient developed worsening left basilar airspace disease and continuing right upper lobe airspace disease. This morning, he was found to be in significant respiratory distress on a 50% Ventimask and with his inability to cough and perform adequate pulmonate toileting the patient was admitted into respiratory failure. I was asked to reevaluate this patient. 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 coli, current E. coli in the sputum has sensitive to Merrem. Most recent urinary cultures showing pseudomonas aeruginosa. 6 suprapubic catheter for recurrent urine checked infection 7 hyperchloremic hypernatremia, and the sodium level is up to 162 8 candidal septicemia and line infection with Rosalie source was the PICC line that was removed and the catheter tip was also positive. 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 The patient is enteral feeding for nutritional support 15 paroxysmal atrial fibrillation current rhythm is back to sinus tachycardia 16 history of hypertension PLAN I contacted the daughter. I had a lengthy discussion with her over the phone. I explained to her that his condition in general is progressively getting worse and he is faced multiple medical problems and comorbidities and based on his poor baseline performance and functional status and poor ability to perform pulmonary toileting, he will be subject to recurrent respiratory failure is a recurrent pneumonias. We discussed different options and possibilities. The daughter told me that the patient wanted to be a full code on his life. She is currently on getting his wishes and she wants to maintain a full CODE STATUS. At the end of our discussion, she felt that probably a full CODE STATUS may need to be readdressed at a later stage however she was not ready to do it at this point in time. I recommended to move the ICU. I performed a bronchoscopy on him and removed approximately 40 mL of purulent material that was dark brownish in color. This was successful and following that the patient's chest congestion and respiratory distress improved. He was subsequently placed on a BiPAP at a pressure of 12/5 cm of water with an FiO2 of 80%. During this time, the patient became hypotensive and currently is receiving a bolus of fluids. He has hyperchloremic hypernatremia. His maintenance fluids will be D5 water at the rate of 125 mL's an hour after completing the bolus. His prognosis poor. He remains full full was status pending further discussion with the family. The rest of the medication will be kept unchanged. Continue BiPAP for history support. Continue enteral feeding for nutritional support. Cardiac rhythm is sinus. We'll follow. This is a critically care evaluation that was done more than 30 minutes excluding time to do any procedures and work is still in progress. Time with Patient: Greater than 30
--- NOTE | 2018-10-16 16:20 | PN ---
PROGRESS NOTE DATE OF SERVICE: 10/16/2018. REASON FOR FOLLOWUP VISIT: 1. Rosalie parapsilosis candidemia secondary to midline that has been discontinued. 2. Patient with new fever and aspiration pneumonitis. INTERVAL HISTORY: The patient did have acute changes to clinical condition. The patient has respiratory distress with more crackly lung sounds possible aspiration. Subsequently has been running a low-grade fever of 100.2, which is new compared to the last 48-72 hours. The patient remains to be lethargic. Subsequently, the patient will be transferred down to ICU. The patient will be started on BiPAP. Chest x-ray showing worsening left basilar airspace disease, continuing right upper lobe air space disease. The patient is status post bronch and bronch specimen has been obtained, sent for culture. The patient currently unable to provide any history. PHYSICAL EXAMINATION: Blood pressure 115/56 with pulse of 180, temperature of 100.2. He is 90% on Venti Mask to BiPAP. General description is an elderly male lying in bed in no distress. Respiratory system: Unlabored breathing, coarse breath sounds at the bases bilaterally. Heart S1, S2. Regular rate and rhythm. Abdomen soft, no tenderness. Extremities: No edema of the feet. LABS: BUN of 49, creatinine 0.96, sodium is 151. Bronch cultures obtained, currently pending. DIAGNOSTIC IMPRESSION/PLAN: 1. Patient with Rosalie parapsilosis candidemia source if midline that has been discontinued. Follow up blood cultures have been negative. Currently on Diflucan to finish a 2 week course of therapy. 2. Patient with Pseudomonas aeruginosa urinary tract infection on Azactam. 3. Patient now with aspiration pneumonia, status post bronch. Cultures will be followed. Antibiotics adjusted further. Discussed with welder apprentice combination. Continue supportive care. MMODL / IJN: [id number] /
[2018-10-16] MEDS: D5W WITH KCL 20 MEQ/L 1,000 ML IV SCH (16:45)
[2018-10-16 17:06] LABS: Color,BF Brown
[2018-10-16 17:07] LABS: Appearance,BF Cloudy; Nucleated Cells, Body Fluid 38300 /uL; RBC, Body Fluid 8500 /uL
[2018-10-16 17:16] LABS: Total Cells Counted,Body Fluid 100
[2018-10-16 17:44] LABS: Mononuclear WBC,Body Fluid 20 %; Polynuclear WBC,Body Fluid 80 %
[2018-10-16 17:47] LABS: Glucose,Whole Blood 91 mg/dL (75-99)
[2018-10-16] MEDS: NOREPINEPHRINE 4 MG in SODIUM CHLORIDE 0.9% 250 ML IV SCH (18:07)
[2018-10-16] MEDS: FORMOTEROL FUMARATE 20 MCG/2 ML NEBU INHALATION SCH (19:20)
[2018-10-16] MEDS: BUDESONIDE 1 MG/2 ML NEBU INHALATION SCH (19:20)
--- NOTE | 2018-10-16 19:56 | PCN ---
PROCEDURE NOTE PROCEDURE PERFORMED: Bronchoscopy. PREOP DIAGNOSES: Bilateral pneumonia, impending respiratory failure. POSTOP DIAGNOSES: Pneumonia, copious amount of retained respiratory secretions, post therapeutic airway suctioning and removal of 40 mL of purulent material from the lung. This procedure was done in the intensive care unit. The patient was given a total of 2 mg of IV Ativan for sedation. The patient was kept on 50% Venti mask. The flexible bronchoscope was inserted through right nostril, it was advanced into the upper airway. Examination of the posterior pharynx. Larynx and epiglottis and vocal cords was done and there was some small amount of retained food or secretions noted that were suctioned out without any major difficulties. Vocal cords were functional and they were symmetrical. A total of 2 mL of 1% lidocaine was applied to the vocal cords. Then following the flexible bronchoscope was advanced into the upper and lower trachea. Examination of the airway was done. Therapeutic suctioning of the airways was done and a total of 40 mL of purulent respiratory secretions was suctioned throughout the airways mainly in the main trachea. The characteristics of the secretions were thick dark brownish in nature. After suctioning the trachea, the bronchoscope was moved to the right mainstem bronchus and left mainstem bronchus and airway inspection was completed and as the airway was being inspected, therapeutic airway suctioning was done. The visualized airways include right upper lobe bronchus, right middle lobe bronchus, right lower lobe bronchus, bronchus intermedius, left upper and left lower lobe bronchus along with various segments and subsegments. All of these airways were patent and within normal limits. At the end of the procedure, the patient did better. His oxygenation improved. The bronchoscope was removed. He was placed on the BiPAP. The samples were sent for Gram stain and culture. MMODL / IJN: [id number] / MTDD
[2018-10-16] MEDS: FLUCONAZOLE IN NACL,ISO-OSM 400 MG in SALINE 1 200ML.BAG IVPB SCH (21:12)
[2018-10-16 23:59] LABS: Glucose,Whole Blood 141 mg/dL (75-99)
[2018-10-17] MEDS: INSULIN ASPART (NovoLOG) 100 UNIT/ML VIAL SQ SCH ×4 (00:02→17:42)
[2018-10-17] MEDS: METOCLOPRAMIDE 5 MG/ML 2 ML VIAL IVP SCH ×2 (00:02→06:50)
[2018-10-17] MEDS: D5W WITH KCL 20 MEQ/L 1,000 ML IV SCH ×3 (03:41→21:36)
[2018-10-17 05:23] LABS: HCT 27.1 % (39.0-53.0); HGB 7.5 gm/dL (13.0-17.5); Hypochromasia Marked; MCH 30.1 pg (25.0-35.0); MCHC 27.5 g/dL (31.0-37.0); MCV 109.4 fL (80.0-100.0); Macrocytosis Marked; Mean Platelet Volume 9.6; Platelet Count 257 k/uL (150-450); RBC 2.48 m/uL (4.30-5.90); RDW 14.6 % (11.5-15.5); WBC 4.3 k/uL (3.8-10.6)
[2018-10-17 05:34] LABS: Calcium 8.3 mg/dL (8.4-10.2); Magnesium 2.1 mg/dL (1.6-2.3); Phosphorus 1.9 mg/dL (2.5-4.5); Potassium 3.7 mmol/L (3.5-5.1); Total Bilirubin 0.7 mg/dL (0.2-1.3); Total Protein 4.7 g/dL (6.3-8.2)
[2018-10-17 06:13] LABS: Band Neutrophils % 36 %; Lymphocytes # (M) 0.82 k/uL (1.0-4.8); Monocytes # (M) 0.09 k/uL (0-1.0); Myelocytes # (M) 0.09 k/uL (0); Myelocytes % 2 %; Neutrophils % (M) 41 %; Nucleated Red Blood Cells 0 /100 WBC (0-0); Total Cells Counted 200
--- NOTE | 2018-10-17 06:25 | XR ---
EXAMINATION TYPE: XR chest 1V portable DATE OF EXAM: 10/17/2018 HISTORY: pulm. congestion, aspiration pnm.. REFERENCE: Previous study dated 10/16/2018. FINDINGS: There is left basilar airspace disease. There is right upper lobe airspace disease. There a re small effusions, greater on the left than the right. The heart is not enlarged. IMPRESSION: CONTINUING BILATERAL AIRSPACE DISEASE WITH SMALL, CONCOMITANT EFFUSIONS.
[2018-10-17] MEDS ORDERED: Phosphorus Replacement Protoco 1 EACH MISC MISCELLANE PRN (06:39)
[2018-10-17 06:47] LABS: Glucose,Whole Blood 122 mg/dL (75-99)
[2018-10-17] MEDS: AZTREONAM 2 GM in SODIUM CHLORIDE 0.9% 100 ML IVPB SCH ×3 (06:50→21:13)
[2018-10-17] MEDS: FORMOTEROL FUMARATE 20 MCG/2 ML NEBU INHALATION SCH ×2 (07:12→20:51)
[2018-10-17] MEDS: BUDESONIDE 1 MG/2 ML NEBU INHALATION SCH ×2 (07:12→20:51)
[2018-10-17] MEDS: IPRATROPIUM-ALBUTEROL 3 ML NEB INHALATION SCH ×4 (07:12→20:51)
[2018-10-17] MEDS: METOPROLOL TARTRATE 25 MG TAB PO SCH ×2 (08:26→21:13)
[2018-10-17] MEDS: BISACODYL 10 MG SUPP RECTAL SCH ×2 (08:29→08:45)
[2018-10-17] MEDS: CHOLECALCIFEROL 400 UNIT TAB PO SCH (08:29)
[2018-10-17] MEDS: APIXABAN 2.5 MG TABLET PO SCH ×2 (08:29→21:12)
[2018-10-17] MEDS: PANTOPRAZOLE 40 MG/10 ML VIAL IVP SCH (08:29)
[2018-10-17] MEDS: MULTIVITAMINS, THERA 1 EACH TAB PO SCH (08:29)
[2018-10-17] MEDS: LEVOTHYROXINE IVP 100 MCG/5 ML VIAL IV SCH (08:29)
[2018-10-17] MEDS: POTASSIUM PHOSPHATE 10 MMOL in SODIUM CHLORIDE 0.9% 250 ML IV SCH ×3 (08:30→17:31)
[2018-10-17] MEDS: NOREPINEPHRINE 4 MG in SODIUM CHLORIDE 0.9% 250 ML IV SCH ×2 (10:40→17:30)
--- NOTE | 2018-10-17 12:15 | P.PN ---
Subjective Progress Note Date: 10/17/18 I reevaluated this 82-year-old male patient upon the request of the primary care as the patient's breathing has gotten worse over the past few days. At the time of my arrival, the patient was very much lethargic and obtunded. The patient was on a 50% Ventimask. His breathing was extremely noisy and the patient was obviously having significant amount of rest or secretions being get upper and lower respiratory tract secretions. The patient had a weak ineffective cough and the patient was obviously in respiratory failure tachypneic and was using some excessive muscle breathing. He was afebrile. He was tachycardic. He had coarse rhonchi throughout the lung petersen bilaterally. No significant signs of any congestion heart failure. He has a PEG tube through which she is receiving enteral feeding for nutritional support. Note that the patient is known to me. Of taking care of this patient in intensive care unit for acute hypoxic respiratory failure secondary to aspiration pneumonia. During this time the patient was given a PEG tube for enteral feeding and sutures support as the patient lost his ability to swallow. The patient is quadriplegic. He is known to have paroxysmal atrial fibrillation and has hypertension. I reviewed the records. I came to find other the patient was being treated for a rosalie parapsilosis the patient is currently on Diflucan and infectious disease on the case. The source of infection was the PICC line that was removed and the catheter tip was also positive. Subsequent blood cultures of been negative. The patient has also a pseudomonal urine checked infection currently is on Azactam. The patient's white cell count is at 3.3 with a hemoglobin of 7.1. The patient's sodium level is at 161 with a chloride level of 131. His BUN is at 49 with a creatinine of 0.9. The patient is on long-term anticoagulation with Eliquis. His cardiac rhythm was sinus. On 10/17/2018 I'm seeing this patient for reevaluation in the intensive care unit. Note that he was brought in to the ICU yesterday and the patient had a bronchoscopy and had to be placed on BiPAP for respiratory support. The bronchoscopy was done and the therapeutic airway suctioning was done with copious amount of purulent respiratory secretions were suctioned out and the cultures still pending for now. Meanwhile the patient is still on BiPAP. The patient remains hypotensive. The patient has currently receiving D5 water at the rate of 1 25 mL an hour and the patient is receiving free water replacements through the PEG tube. The sodium level is slowly improving. He is still altered in terms of his mentation and he has not been following any commands or answering questions. He can sometimes withdraw using his upper extremities. The patient is quadriplegic as mentioned earlier. Overall, the patient is still very much obtunded and unresponsive. He is tolerating his BiPAP which is currently set at a pressure of 12/5 cm of water with an FiO2 of 60%. The satur ation is in order of 93-94%. He is having some improvement in his sodium level which is down to 157. The chloride level is down to 128. His potassium level is at 3.7. His hemoglobin is at 7.5. The patient is on broad-spectrum antibiotic coverage utilizing a combination of Diflucan and aztreonam. His pressors are running at 0.22 g per KG per minute. A triple lumen catheter will be inserted today for assisting with pressors and hemodynamic support. Infectious diseases on the case. The follow-up chest x-ray from today still showing persistent infiltration of the right upper lobe and the left lower lobe. His CODE STATUS is full. Cardiac rhythm is sinus. He is still on long-term and to coagulation with Eliquis. Tolerating his tube feeds. Objective - Vital Signs Vital signs: Vital Signs Temp 98.5 F 10/17/18 04:00 Pulse 121 H 10/17/18 11:41 Resp 19 10/17/18 11:00 BP 77/57 10/17/18 11:00 Pulse Ox 97 10/17/18 11:00 Intake & Output 10/16/18 10/17/18 10/17/18 18:59 06:59 18:59 Intake Total 1570 3348.743 1120.257 Output Total 505 414 200 Balance 1065 2934.743 920.257 Weight 64.8 kg Intake: IV 1250 1750 625 Aztreonam 2 gm In Sodium 100 200 Chloride 0.9% 100 ml @ 100 mls/hr IVPB Q8H [facility] Rx#:[id number] D5w with KCl 20 Meq/l 1, 150 1350 625 000 ml @ 125 mls/hr IV . Q8H [facility] Rx#:[id number] Fluconazole in NaCl,Iso- 200 Osm 400 mg In Saline 1 200ml.bag @ 100 mls/hr IVPB HS [facility] Rx#:[id number] Sodium Chloride 0.9% 1, 1000 000 ml @ 999 mls/hr IV . Q1H1M ONE Rx#:[id number] Intake, IV Titration 218.743 35.257 Amount Norepinephrine 4 mg In 218.743 35.257 Sodium Chloride 0.9% 250 ml @ 0.05 MCG/KG/MIN 12. 344 mls/hr IV .[id number] [facility] Rx#:[id number] Tube Feeding 320 480 160 Other 900 300 Output: Urine 505 414 200 Other: Voiding Method Indwelling Catheter Indwelling Catheter Indwelling Catheter # Bowel Movements 1 1 1 - Exam Constitutional: The patient seems to is significant and severe respiratory distress. He has a weak cough. He has having difficulties in controlling his respiratory secretions., the patient is on BiPAP at a pressure of 12/5 cm of water. He is not using his is and muscles of breathing for the time being. Eyes: Anicteric sclerae, moist conjunctiva, no lid-lag, PERRLA ENMT: NC/AT,Oropharynx clear, no erythema or exudates. The patient has significant valgus and his oral mucosa. No thrush seen. Neck:Supple, FROM, no masses, or JVD, No carotid bruits; No thyromegaly Lungs: Inspiratory and expiratory rhonchi and coarse breath sounds, increased respiratory effort, some accessory muscle . The breath sounds are markedly diminished. Crackles are appreciated throughout the lung petersen specially in the lower lobes bilaterally. Scattered rhonchi heard throughout the lung petersen bilaterally. Cardiovascular: Heart regular in rate and rhythm, No murmurs, gallops, or rubs no peripheral edema Abdominal: Soft Nontender, nom distended, no guarding, no rebound or rigidity, Normoactive bowel sounds No hepatomegaly, No splenomegaly, No palpable mass No abdominal wall hernia noted . The patient has a PEG tube in place Skin: Normal temperature, tone, texture, turgor, No induration No subcutaneous nodules, No rash, lesions, No ulcers Extremities:No digital cyanosis No clubbing, Pedal pulses intact and symmetrical Radial pulses intact and symmetrical Normal gait and station, No calf tenderness Neuro: Quadriplegic, with flexion contractures and atrophy of lower extremities, the patient still not as conversive or functional - Labs CBC & Chem 7: 10/17/18 04:49 10/17/18 04:49 Labs: Abnormal Lab Results - Last 24 Hours (Table) 10/16/18 10/17/18 10/17/18 Range/Units 23:56 04:49 04:49 RBC 2.48 L (4.30-5.90) m/uL Hgb 7.5 L (13.0-17.5) gm/dL Hct 27.1 L (39.0-53.0) % MCV 109.4 H (80.0-100.0) fL MCHC 27.5 L (31.0-37.0) g/dL Lymphocytes # (Manual) 0.82 L (1.0-4.8) k/uL Myelocytes # (Manual) 0.09 H (0) k/uL Sodium 157 H (137-145) mmol/L Chloride 128 H (98-107) mmol/L BUN 49 H (9-20) mg/dL Glucose 118 H (74-99) mg/dL POC Glucose (mg/dL) 141 H (75-99) mg/dL Calcium 8.3 L (8.4-10.2) mg/dL Phosphorus 1.9 L (2.5-4.5) mg/dL Alkaline Phosphatase 134 H (38-126) U/L Total Protein 4.7 L (6.3-8.2) g/dL Albumin 2.0 L (3.5-5.0) g/dL 10/17/18 Range/Units 06:46 RBC (4.30-5.90) m/uL Hgb (13.0-17.5) gm/dL Hct (39.0-53.0) % MCV (80.0-100.0) fL MCHC (31.0-37.0) g/dL Lymphocytes # (Manual) (1.0-4.8) k/uL Myelocytes # (Manual) (0) k/uL Sodium (137-145) mmol/L Chloride (98-107) mmol/L BUN (9-20) mg/dL Glucose (74-99) mg/dL POC Glucose (mg/dL) 122 H (75-99) mg/dL Calcium (8.4-10.2) mg/dL Phosphorus (2.5-4.5) mg/dL Alkaline Phosphatase (38-126) U/L Total Protein (6.3-8.2) g/dL Albumin (3.5-5.0) g/dL Microbiology - Last 24 Hours (Table) 10/16/18 14:45 Gram Stain - Preliminary Bronchoalviolar Lavage - Right Bronchial Washings Culture - Preliminary Presumptive Staph aureus 10/11/18 07:42 Blood Culture - Final Blood No Growth after 144 hours 10/11/18 21:50 Blood Culture - Preliminary Blood No Growth after 120 hours 10/16/18 14:45 Fungal Culture - Preliminary Bronchoalviolar Lavage - Right 10/16/18 14:45 Acid Fast Bacilli Culture - Preliminary Bronchoalviolar Lavage - Right 10/10/18 07:46 Blood Culture - Final Blood No Growth after 144 hours Assessment and Plan Plan: Assessment 1 multilobar pneumonia with worsening in pulmonary infiltrates and persistent bilateral pulmonary infiltrates in the right upper lobe and the left lower lobe. After being treated in the intensive care unit. Weeks back, the patient was released and the patient was being treated on a medical floor and during the course of his treatment the patient was diagnosed having a candidal line infection. In the interim, the patient's breathing got worse and the patient developed worsening left basilar airspace disease and continuing right upper lobe airspace disease. This morning, he was found to be in significant respiratory distress on a 50% Ventimask and with his inability to cough and perform adequate pulmonate toileting the patient was admitted into respiratory failure. I was asked to reevaluate this patient. I brought this patient to the intensive care unit yesterday. I performed a bronchoscopy. Following the bronchoscopy copious amount of rest for 6 she is were suctioned out and he seems to be less short of breath on the BiPAP on his respiratory rate has settled d own. Nevertheless, the patient remains hypotensive and septic and he remains on BiPAP for respiratory support. He also has a component of hyperchloremic hypernatremia which is being treated here in the intensive care units. The cultures that were obtained from the bronchial lavage was positive for staph aureus and final sensitivities are still pending for now. 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 coli, current E. coli in the sputum has sensitive to Merrem. Most recent urinary cultures showing pseudomonas aeruginosa. 6 suprapubic catheter for recurrent urine checked infection 7 hyperchloremic hypernatremia, and the sodium level is up to 157 8 candidal septicemia and line infection with Rosalie source was the PICC line that was removed and the catheter tip was also positive. 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 The patient is enteral feeding for nutritional support 15 paroxysmal atrial fibrillation current rhythm is back to sinus tachycardia 16 history of hypertension PLAN We'll continue the D5 infusion. We'll monitor the electrolytes. We will use pressors or hemodynamic support. We'll insert a triple lumen catheter. Diflucan for candidal septicemia. Continue aztreonam for pseudomonal UTI. Add Zyvox regarding the possibility of an MRSA pneumonia. We'll be awaiting final cultures and sensitivities. Meanwhile, Zyvox was started a dose of 600 mg every 12 hours. Continue BiPAP for respiratory support at a pressure of 12/5 cm of water and FiO2 40%. Unfortunately his prognosis remains poor and we'll keep the family updated on his condition on a regular basis. We will anticipate some improvement in mental status with fluid resuscitation and improvement in hemodynamics and sepsis. There is a critically care evaluation and this evaluation was done and more than 30 minutes excluding time to do any procedures. A triple lumen catheter was inserted to the later stage. Time with Patient: Greater than 30
[2018-10-17] MEDS ORDERED: LINEZOLID 600 MG in DEXTROSE/WATER 1 300ML.BAG IVPB SCH (13:00)
[2018-10-17 13:03] LABS: Glucose,Whole Blood 153 mg/dL (75-99)
--- NOTE | 2018-10-17 15:31 | PN ---
PROGRESS NOTE DATE OF SERVICE: 10/17/2018 This 82-year-old gentleman who was admitted with bilateral multilobar pneumonia also had a bronchoscopy with mucous plugging. The patient also had an episode of aspiration yesterday. The patient had hypoxia. The patient had repeat bronchoscopy and was transferred to ICU. At this time, patient broad spectrum IV antibiotics. Presumptive Staph is growing from the culture. Dr. Rivas started the patient on Zyvox and the patient is being closely monitored. PAST MEDICAL HISTORY: Reviewed. REVIEW OF SYSTEMS: Could not be taken. The patient is drowsy at this time. CURRENT MEDICATIONS ARE: Reviewed and include: 1. Tylenol 650 q.6h p.r.n. 2. DuoNeb q.i.d. and p.r.n. 3. Eliquis 2.5 mg p.o. b.i.d. 4. Artificial tears. 5. Aztreonam 2 g IV q.8h. 6. Dulcolax. 7. Pulmicort 1 mg b.i.d. 8. Vitamin D3 400 units daily. 9. Fluconazole 200 mg IV daily. 10.Perforomist. 11.Alprazolam. 12.NovoLog. 13.Synthroid. 14.Linezolid. 15.Imodium. 16.Lopressor. 17.Replacement protocol. 18.Narcan. 19.Levophed drip. PHYSICAL EXAMINATION: Patient is stuporous. Pulse is 120, blood pressure 83/56, respiration 20, temp is normal. Pulse ox 97% on BiPAP. HEENT is conjunctivae normal. Oral mucosa moist. Neck is no jugular venous distention. No carotid bruit. No lymph node enlargement. CARDIOVASCULAR: S1, S2 muffled. Respirations: Breath sounds diminished in the bases. Bilateral scattered rhonchi and crackles. Abdomen is soft, nontender. No mass palpable. Legs: No edema. No swelling. Central nervous system: Diffusely weak. LAB STUDIES: WBC 4.2, hemoglobin 7.5, sodium 159, potassium 3.7. ASSESSMENT: 1. Rosalie parapsilosis sepsis. 2. Bilateral multilobar aspiration pneumonia with possible sepsis status post bronchoscopy and mucous plugging present on admission. 3. Hypernatremia and dehydration. 4. Staph presumptive from the sputum. 5. Recurrent aspiration with acute hypoxic respiratory failure. 6. Acute hypoxic respiratory failure on BiPAP currently. 7. Acute influenza. 8. Continued fever and possible sepsis. 9. Paroxysmal atrial fibrillation, fast ventricular rate. 10.Pseudomonas aeruginosa in the urine and Rosalie E. coli from the sputum. 11.Status post PEG tube exchange replaced for blocked PEG tube on PPI. 12.History of hypertension. 13.History of recurrent fever. 14.Chronic quadriplegia with residual partial in the right upper and lower limbs. 15.History of chronic neurogenic bladder with chronic suprapubic catheter. 16.Acute Coumadin toxicity treated with vitamin K. 17.Urinary tract infection secondary to suprapubic catheter, present on admission. 18.Change in mental status, metabolic encephalopathy, acute on chronic. 19.Peripheral neuropathy. 20.Paroxysmal atrial fibrillation, currently normal sinus rhythm. 21.Malnutrition with mild to moderate protein calorie malnutrition, status post PEG tube placement. 22.Mild pancytopenia of undetermined etiology. 23.Rosalie parapsilosis in the PICC line tip. 24.FULL CODE. RECOMMENDATIONS AND DISCUSSION: In this 82-year-old gentleman who presented with multiple complex medical issues, we will monitor the patient closely. Otherwise at this time, continue to monitor. Continue with the broad-spectrum IV antibiotics. The patient is on aztreonam and Zyvox and Diflucan. We will continue to monitor. Obtain cultures. Closely monitor in ICU. Otherwise, the patient is on D5 water. We will continue to monitor sodium closely and further recommendations to follow. Otherwise, repeat labs. Prognosis is extremely guarded because of multiple complex medical issues as listed above. Further recommendations to follow. MMODL / IJN: [id number] / ROGERS
--- NOTE | 2018-10-17 16:22 | PCN ---
PROCEDURE NOTE TRIPLE LUMEN CATHETER PLACEMENT: Indication Hemodynamic monitoring/Intravenous access. PREOP DIAGNOSIS: Sepsis. POSTOP DIAGNOSIS: Sepsis. A time-out was completed verifying correct patient, procedure, site, positioning, and implant(s) or special equipment if applicable. The patient was placed in a dependent position appropriate for triple lumen catheter placement based on the vein to be cannulated. The patient's right groin was prepped and draped in sterile fashion. 1% Lidocaine was used to anesthetize the surrounding skin area. A triple lumen 9F Cordis catheter was introduced into the common femoral vein using Seldinger technique. The catheter was threaded smoothly over the guide wire and appropriate blood return was obtained. Each lumen of the catheter was evacuated of air and flushed with sterile saline. The catheter was then sutured in place to the skin and a sterile dressing applied. Perfusion to the extremity distal to the point of catheter insertion was checked and found to be adequate. No complications. MMODL / IJN: [id number] /
--- NOTE | 2018-10-17 16:28 | PCN ---
PROCEDURE NOTE ARTERIAL LINE PLACEMENT: Indications: Hemodynamic monitoring. PREOP DIAGNOSIS: Sepsis. POSTOP DIAGNOSIS: Sepsis. A time-out was completed verifying correct patient, procedure, site, positioning, and implant(s) or special equipment if applicable. Liu's test was performed to ensure adequate perfusion. The patient's right groin was prepped and draped in sterile fashion. 1% Lidocaine was used to anesthetize the area. An 18G Arrow arterial line was introduced into the femoral artery. The catheter was threaded over the guide wire and the needle was removed with appropriate pulsatile blood return. Blood loss was minimal. The catheter was then sutured in place to the skin and a sterile dressing applied. Perfusion to the extremity distal to the point of catheter insertion was checked and found to be adequate. The patient tolerated the procedure well and there were no complications. No bedside complications or bleeding. MMODL / IJN: [id number] /
[2018-10-17] MEDS ORDERED: VANCOMYCIN IV PER PHARMACY 1 EACH MISC MISCELLANE PRN (16:35)
[2018-10-17] MEDS ORDERED: VANCOMYCIN 1,250 MG in SODIUM CHLORIDE 0.9% 250 ML IVPB SCH (17:00)
[2018-10-17 17:42] LABS: Glucose,Whole Blood 158 mg/dL (75-99)
[2018-10-17] MEDS: FLUCONAZOLE IN NACL,ISO-OSM 400 MG in SALINE 1 200ML.BAG IVPB SCH (21:12)
--- NOTE | 2018-10-17 21:55 | PN ---
PROGRESS NOTE DATE OF SERVICE: 10/17/2018. REASON FOR FOLLOWUP: 1. Rosalie parapsilosis bacteremia secondary to midline that has been discontinued. Followup blood culture negative. 2. Pseudomonas urinary tract infection. 3. MRSA pneumonia. INTERVAL HISTORY: The patient is currently on the BiPAP, slightly tachycardic on pressors in the form of Levophed currently at 18 mics. The patient remains to be lethargic and unable to provide any history, tolerating his tube feeds. No diarrhea or vomiting has been reported by nursing staff. PHYSICAL EXAMINATION: Blood pressure 108/53 with a pulse of 170, temperature of 98. He is 98% on BiPAP. General description is an elderly male lying in bed in no distress. Respiratory system: Unlabored breathing. Coarse breath sounds at the bases bilaterally. Heart S1, S2. Regular rate and rhythm. Abdomen soft. No tenderness. Extremities: No edema of the feet. LABS: Hemoglobin is 7.5, white count of 4.3, BUN of 49, creatinine is 1.12. Bronch culture yesterday showing presumptive Staph aureus. DIAGNOSTIC IMPRESSION/PLAN: 1. Patient with Rosalie parapsilosis back candidemia from midline that has been discontinued. Followup blood culture negative. Currently on Diflucan. Continue for a total of 2 weeks with negative blood cultures. 2. Pseudomonas urinary tract infection, currently covered with Azactam 2 g q.8h. 3. Patient now with no pneumonia with bronch culture showing Staph aureus, possibly MRSA. We will add vancomycin pharmacy to dose while watching his kidney function and clinical course closely. Overall prognosis remains to be guarded. Continue supportive care. MMODL / IJN: [id number] /
[2018-10-18] MEDS: INSULIN ASPART (NovoLOG) 100 UNIT/ML VIAL SQ SCH ×4 (00:58→18:33)
[2018-10-18 01:00] LABS: Glucose,Whole Blood 122 mg/dL (75-99)
[2018-10-18] MEDS: NOREPINEPHRINE 32 MG in SODIUM CHLORIDE 0.9% 250 ML IV SCH ×2 (01:01→20:52)
[2018-10-18 05:26] LABS: Albumin 1.8 g/dL (3.5-5.0); Magnesium 1.7 mg/dL (1.6-2.3); Phosphorus 4.1 mg/dL (2.5-4.5); Total Bilirubin 0.6 mg/dL (0.2-1.3); Total Protein 4.4 g/dL (6.3-8.2)
[2018-10-18 05:32] LABS: HCT 25.5 % (39.0-53.0); HGB 7.5 gm/dL (13.0-17.5); Hypochromasia Marked; MCH 31.3 pg (25.0-35.0); MCHC 29.4 g/dL (31.0-37.0); MCV 106.7 fL (80.0-100.0); Macrocytosis Moderate; Mean Platelet Volume 9.9; Platelet Count 296 k/uL (150-450); RBC 2.39 m/uL (4.30-5.90)
[2018-10-18 06:04] LABS: Glucose,Whole Blood 109 mg/dL (75-99)
[2018-10-18 06:24] LABS: Band Neutrophils % 13 %; Eosinophils # (M) 0.16 k/uL (0-0.7); Lymphocytes # (M) 0.81 k/uL (1.0-4.8); Metamyelocytes # (M) 0.08 k/uL (0); Metamyelocytes % 1 %; Monocytes # (M) 0.16 k/uL (0-1.0); Neutrophils % (M) 72 %; Nucleated Red Blood Cells 2 /100 WBC (0-0); Total Cells Counted 200; WBC 8.1 k/uL (3.8-10.6)
[2018-10-18 06:25] LABS: Large Platelets Present
[2018-10-18] MEDS: AZTREONAM 2 GM in SODIUM CHLORIDE 0.9% 100 ML IVPB SCH ×3 (06:28→21:59)
[2018-10-18] MEDS: MAGNESIUM SULFATE-D5W PMX 1 GM in DEXTROSE/WATER 1 100ML.BAG IVPB SCH ×2 (06:28→09:08)
[2018-10-18] MEDS: BUDESONIDE 1 MG/2 ML NEBU INHALATION SCH ×2 (07:37→19:38)
[2018-10-18] MEDS: FORMOTEROL FUMARATE 20 MCG/2 ML NEBU INHALATION SCH ×2 (07:37→19:38)
[2018-10-18] MEDS: IPRATROPIUM-ALBUTEROL 3 ML NEB INHALATION SCH ×4 (07:37→19:38)
--- NOTE | 2018-10-18 07:48 | XR ---
EXAMINATION TYPE: XR chest 1V portable DATE OF EXAM: 10/18/2018 Comparison: 10/17/2018 Clinical History: 82-year-old male pulmonary congestion, aspiration pneumonia. Findings: Multifocal airspace opacities persist particularly in the right upper lobe and left lower lobe. Under lying small effusions are demonstrated. Left perihilar opacity shows slight interval increase. Impression: Continued multifocal airspace disease and small effusions, slight worsening in the left perihilar reg ion.
[2018-10-18] MEDS: BISACODYL 10 MG SUPP RECTAL SCH (08:07)
[2018-10-18] MEDS: METOPROLOL TARTRATE 25 MG TAB PO SCH ×2 (09:02→20:46)
[2018-10-18] MEDS: PANTOPRAZOLE 40 MG/10 ML VIAL IVP SCH (09:07)
[2018-10-18] MEDS: MULTIVITAMINS, THERA 1 EACH TAB PO SCH (09:08)
[2018-10-18] MEDS: CHOLECALCIFEROL 400 UNIT TAB PO SCH (09:08)
[2018-10-18] MEDS: APIXABAN 2.5 MG TABLET PO SCH ×2 (09:08→20:53)
[2018-10-18] MEDS: LEVOTHYROXINE IVP 100 MCG/5 ML VIAL IV SCH (09:08)
[2018-10-18] MEDS ORDERED: VANCOMYCIN 1,250 MG in SODIUM CHLORIDE 0.9% 250 ML IVPB SCH (10:00)
--- NOTE | 2018-10-18 11:18 | P.PN ---
Subjective Progress Note Date: 10/18/18 Principal diagnosis: Acute pseudomonas aeruginosa urinary tract infection and multilobar pneumonia This is an 82-year-old white male, known history of quadriplegia, admitted on , main admitting diagnosis was sepsis, acute hypoxic respiratory failure, aspiration pneumonia, Pseudomonas urinary tract infection, electrolytes imbalance, coagulopathy and thrombocytopenia. His blood cultures have been negative since admission, his urine cultures were positive for pseudomonas aeruginosa sputum cultures positive for Rosalie albicans and E. coli. Patient was seen by Dr. Rivas on consultation, and he was treated with Merrem, he underwent a bronchoscopy and bronchoalveolar lavage, and it was eventually recommended that the patient needs a PEG tube placement. Dr. lópez saw the patient on consultation, and he underwent a trial of PEG tube placement, however numerous attempts were made and esophagus could not be intubated. Then it was the recommendation of undergoing surgical approach for a PEG tube placement and this would be done today by Dr. Christian. I saw the patient today in the ICU, he looks very comfortable, he is on 2 L nasal cannula, in no distress, he seems quite edematous and I believe that's probably because of his poor nutritional status, and hypoalbuminemia. Patient is on TPN for nutritional support. He is also on antibiotics for UTI and pneumonia. Labs were reviewed had a relatively normal electrolytes, normal renal profile, hemoglobin is 7.6. WBC count is 3.2. His last chest x-ray from 09/25 showed cardiomegaly and small pleural effusions, and bilateral airspace disease. On 10/17/2018 I'm seeing this patient for reevaluation in the intensive care unit. Note that he was brought in to the ICU yesterday and the patient had a bronchoscopy and had to be placed on BiPAP for respiratory support. The bronchoscopy was done and the therapeutic airway suctioning was done with copious amount of purulent respiratory secretions were suctioned out and the cultures still pending for now. Meanwhile the patient is still on BiPAP. The p atient remains hypotensive. The patient has currently receiving D5 water at the rate of 1 25 mL an hour and the patient is receiving free water replacements through the PEG tube. The sodium level is slowly improving. He is still altered in terms of his mentation and he has not been following any commands or answering questions. He can sometimes withdraw using his upper extremities. The patient is quadriplegic as mentioned earlier. Overall, the patient is still very much obtunded and unresponsive. He is tolerating his BiPAP which is currently set at a pressure of 12/5 cm of water with an FiO2 of 60%. The saturation is in order of 93-94%. He is having some improvement in his sodium level which is down to 157. The chloride level is down to 128. His potassium level is at 3.7. His hemoglobin is at 7.5. The patient is on broad-spectrum antibiotic coverage utilizing a combination of Diflucan and aztreonam. His pressors are running at 0.22 g per KG per minute. A triple lumen catheter will be inserted today for assisting with pressors and hemodynamic support. Infectious diseases on the case. The follow-up chest x-ray from today still showing persistent infiltration of the right upper lobe and the left lower lobe. His CODE STATUS is full. Cardiac rhythm is sinus. He is still on long-term and to coagulation with Eliquis. Tolerating his tube feeds. Reevaluated today on 10/18/2018, patient remains on BiPAP, presently on 50% FiO2, and IPAP of 12, EPAP of 5. Patient is calm, in no distress, he is also on levo fed drip at 0.28 mcg/kg/m. Remains on multiple antibiotics for his presumptive pneumonia involving the right upper lobe and left lower lobe, awaiting cultures from the BAL done yesterday, and antibiotics will be adjusted accordingly. Patient is quadriplegic, remains obtunded, unresponsive, but tolerating the BiPAP well. Infectious disease remain on the case, and his antibiotics are adjusted accordingly. Surprisingly the patient continues to have a full CODE STATUS. Continues on tube feeding, and that is well tolerated. CBC showed hemoglobin of 7.5 otherwise unremarkable. Electrolytes show sodium of 147 potassium 4.0 chloride 122 BUN is 40 creatinine 1.06. Rest of the labs were all reviewed, chest x-ray shows significant consolidation involving the right upper lobe and left lower lobe. Objective - Vital Signs Vital signs: Vital Signs Temp 97.1 F L 10/18/18 08:00 Pulse 121 H 10/18/18 10:15 Resp 22 10/18/18 10:15 BP 90/66 10/18/18 10:15 Pulse Ox 92 L 10/18/18 10:15 Intake & Output 10/17/18 10/18/18 10/18/18 18:59 06:59 18:59 Intake Total 4141.930 3428.593 890 Output Total 545 857 200 Balance 3596.930 2571.593 690 Weight 69.9 kg 73.6 kg 73.6 kg Intake: IV 2500 1800 750 Aztreonam 2 gm In Sodium 100 100 Chloride 0.9% 100 ml @ 100 mls/hr IVPB Q8H [facility] Rx#:[id number] D5w with KCl 20 Meq/l 1, 1500 1500 500 000 ml @ 125 mls/hr IV . Q8H [facility]Y Rx#:[id number] Fluconazole in NaCl,Iso- 200 Osm 400 mg In Saline 1 200ml.bag @ 100 mls/hr IVPB HS [facility]Y Rx#:[id number] Linezolid 600 mg In 150 Dextrose/Water 1 300ml. bag @ 150 mls/hr IVPB Q12H [facility] Rx#:[id number] Potassium Phosphate 10 500 mmol In Sodium Chloride 0 .9% 250 ml @ 125 mls/hr IV Q2H [facility] Rx#:[id number] Vancomycin 1,250 mg In 250 250 Sodium Chloride 0.9% 250 ml @ 125 mls/hr IVPB Q24H [facility] Rx#:[id number] Intake, IV Titration 301.930 288.593 100 Amount Magnesium Sulfate-D5w Pmx 100 100 1 gm In Dextrose/Water 1 100ml.bag @ 100 mls/hr IVPB Q1H [facility] Rx#: [id number] Norepinephrine 32 mg In 51.981 Sodium Chloride 0.9% 250 ml @ 0.05 MCG/KG/MIN 1. 917 mls/hr IV .Q24H [facility] Rx#:[id number] Norepinephrine 4 mg In 301.930 136.612 Sodium Chloride 0.9% 250 ml @ 0.05 MCG/KG/MIN 12. 344 mls/hr IV .[id number] [facility]Y Rx#:[id number] Oral 0 Tube Feeding 440 440 40 Other 900 900 Output: Urine 545 857 200 Other: Voiding Method Indwelling Catheter Indwelling Catheter # Bowel Movements 2 1 ABP, PAP, CO, CI - Last Documented Arterial Blood Pressure 77/40 - Exam Physical Exam: Revealed an 82-year-old white male paraplegic, BiPAP as noted earlier. Head: Atraumatic, normocephalic, dry mucous membranes noted. HEENT:[Neck is supple.] [No neck masses.] [No thyromegaly.] [No JVD.] PERRLA, EOMI, no icterus, dry mucous membranes noted. Chest: [Crackles and rhonchi at the bases, symmetrical chest expansion, no chest wall tenderness.] Cardiac Exam: [Irregular irregular rhythm Normal S1 and S2, no S3 gallop, no murmur.] Abdomen: [Soft, nontender, no megaly, no rebound, no guarding, normal bowel sounds.] Edematous abdominal wall is noted. PEG tube site is intact and clean. Extremities: [No clubbing, 2+ bipedal edema, no cyanosis. No calf tenderness. Neurological Exam: Paraplegic, Patient is nonverbal, communicates by nodding his head. Flexion contractures and atrophy of lower extremities noted.. Lymphatics: No lymphadenopathy. Skin: No rashes - Labs CBC & Chem 7: 10/18/18 04:50 10/18/18 04:50 Labs: Abnormal Lab Results - Last 24 Hours (Table) 10/17/18 10/17/18 10/18/18 Range/Units 13:00 17:40 00:58 RBC (4.30-5.90) m/uL Hgb (13.0-17.5) gm/dL Hct (39.0-53.0) % MCV (80.0-100.0) fL MCHC (31.0-37.0) g/dL Lymphocytes # (Manual) (1.0-4.8) k/uL Metamyelocytes # (Man) (0) k/uL Nucleated RBCs (0-0) /100 WBC Sodium (137-145) mmol/L Chloride (98-107) mmol/L Carbon Dioxide (22-30) mmol/L BUN (9-20) mg/dL Glucose (74-99) mg/dL POC Glucose (mg/dL) 153 H 158 H 122 H (75-99) mg/dL Calcium (8.4-10.2) mg/dL AST (17-59) U/L Total Protein (6.3-8.2) g/dL Albumin (3.5-5.0) g/dL 04/10/18/18 10/18/18 Range/Units 04:50 04:50 06:03 RBC 2.39 L (4.30-5.90) m/uL Hgb 7.5 L (13.0-17.5) gm/dL Hct 25.5 L (39.0-53.0) % MCV 106.7 H (80.0-100.0) fL MCHC 29.4 L (31.0-37.0) g/dL Lymphocytes # (Manual) 0.81 L (1.0-4.8) k/uL Metamyelocytes # (Man) 0.08 H (0) k/uL Nucleated RBCs 2 H (0-0) /100 WBC Sodium 147 H (137-145) mmol/L Chloride 122 H (98-107) mmol/L Carbon Dioxide 19 L (22-30) mmol/L BUN 40 H (9-20) mg/dL Glucose 104 H (74-99) mg/dL POC Glucose (mg/dL) 109 H (75-99) mg/dL Calcium 8.0 L (8.4-10.2) mg/dL AST 16 L (17-59) U/L Total Protein 4.4 L (6.3-8.2) g/dL Albumin 1.8 L (3.5-5.0) g/dL Microbiology - Last 24 Hours (Table) 10/11/18 21:50 Blood Culture - Final Blood No Growth after 144 hours 10/16/18 14:45 Acid Fast Bacilli Smear - Final Bronchoalviolar Lavage - Right Acid Fast Bacilli Culture - Preliminary 10/16/18 14:45 Gram Stain - Preliminary Bronchoalviolar Lavage - Right Bronchial Washings Culture - Preliminary Presumptive Staph aureus 10/11/18 07:42 Blood Culture - Final Blood No Growth after 144 hours Assessment and Plan Assessment: Impression: 1 acute hypoxic respiratory failure secondary to pneumonia, multilobar. 2 acute urinary tract infection secondary to pseudomonas aeruginosa presently on IV Azactam. 3 hyponatremia on presentation, resolved since admission. 4 supra pubic catheter for recurrent urinary tract infection 5 quadriplegia secondary to previous cervical fracture 6 previous history of deep vein thrombosis maintained on joint terminal attack controller anticoagul ation therapy 7 failed the swallow evaluation, patient is scheduled for PEG tube placement surgically today since previous attempts to do it under IV conscious sedation failed. 8 paroxysmal atrial fibrillation, 9 Coumadin toxicity on admission, resolved 10 history of hypertension 11 history of hypothyroidism 12 status post open gastrostomy tube placement and repair of incisional hernia Recommendation: Continue present supportive care measures, including antibiotics, hemodynamic support, nutritional support, continue to adjust antibiotics according to the cultures, awaiting final cultures, continue BiPAP as needed, overall prognosis is extremely poor, CODE STATUS may have to be re-discussed with the daughter however at this point the patient is full code. I have a feeling that the patient will eventually require intubation and mechanical ventilation, and if that happens I would strongly recommend tracheostomy at that point. Critical care time is 35 minutes. Time with Patient: Greater than 30 (1111)
[2018-10-18 11:50] LABS: Glucose,Whole Blood 161 mg/dL (75-99)
[2018-10-18] MEDS: D5W WITH KCL 20 MEQ/L 1,000 ML IV SCH ×2 (12:13→20:52)
[2018-10-18] MEDS ORDERED: SODIUM CHLORIDE 0.9% 1,000 ML IV ONE (14:43)
--- NOTE | 2018-10-18 15:01 | XR ---
EXAMINATION TYPE: XR chest 1V portable DATE OF EXAM: 10/18/2018 COMPARISON: 10/18/2018 HISTORY: Postintubation TECHNIQUE: Single frontal view of the chest is obtained. FINDINGS: ET tube approximately 1.2 cm above daniel. Bilateral airspace disease and pleural effusion stable. Limited inspiration. Apical pleural thickening. No pneumothorax. Atherosclerotic change aort a. Heart size stable. Diffuse osteopenia and arthropathy of the shoulders. IMPRESSION: 1. ET tube is somewhat low in position approximately 1.2 cm above the daniel. 2. Bilateral airspace disease and pleural effusions
[2018-10-18] MEDS: PROPOFOL 1,000 MG in EMPTY BAG 1 BAG IV SCH (15:09)
[2018-10-18 15:17] LABS: ABG Base Excess -11.3 mmol/L; ABG HCO3 19 mmol/L (21-25); ABG PCO2 63 mmHg (35-45); ABG PO2 134 mmHg (83-108); ABG TCO2 21 mmol/L (19-24)
[2018-10-18 15:24] LABS: ABG Oxygen Saturation 99.1 % (94-97); ABG PH 7.08 (7.35-7.45)
--- NOTE | 2018-10-18 16:17 | PN ---
PROGRESS NOTE DATE OF SERVICE: 10/18/2018 REASON FOR FOLLOWUP: 1. Rosalie parapsilosis candidemia secondary to midline. 2. MRSA pneumonia. 3. Pseudomonas UTI. INTERVAL HISTORY: The patient is currently afebrile. The patient remains hemodynamically unstable, requiring about 20 mcg of Levophed. The patient did have a congested cough but not bringing up any sputum. The patient remains on a BiPAP, unable to provide any history. PHYSICAL EXAMINATION: Blood pressure is 115/47 with a pulse of 129, temperature 98. He is 90% on BiPAP. General description is an elderly male lying in bed in no distress. HEENT examination shows pallor. The patient is orally intubated. Oral mucosa covered with BiPAP. LUNGS: Unlabored breathing. Coarse breath sounds bilaterally. HEART: S1, S2. Regular rate and rhythm. ABDOMEN: Soft. No tenderness. EXTREMITIES: No edema of the feet. LABS: Hemoglobin 7.5, white count 8.1. BUN of 40, creatinine 1.06. DIAGNOSTIC IMPRESSION AND PLAN: 1. Patient with acute respiratory failure in this patient who did have significant mucus plugging, status post bronchoscopy. Culture are presumptive Staphylococcus aureus, likely MRSA. Still requiring pressor support despite being on vancomycin. At this time will discontinue the vancomycin. Will start the patient on Zyvox 600 q.12. 2. Patient with pseudomonas urinary tract infection, currently covered with Azactam 2 grams q.8 hours. 3. Rosalie parapsilosis candidemia secondary to a midline that has been discontinued. To continue with Diflucan to finish his 2-week course of therapy. Overall prognosis remains guarded. Continue with supportive care. MMODL / IJN: [id number] /
[2018-10-18] MEDS: LINEZOLID 600 MG in DEXTROSE/WATER 1 300ML.BAG IVPB SCH (16:18)
[2018-10-18 18:06] LABS: Glucose,Whole Blood 178 mg/dL (75-99)
[2018-10-18] MEDS: FLUCONAZOLE IN NACL,ISO-OSM 400 MG in SALINE 1 200ML.BAG IVPB SCH (20:51)
[2018-10-18] MEDS: CHLORHEXIDINE GLUCONATE 15 ML CUP MUCOUS MEM SCH (20:53)
--- NOTE | 2018-10-18 21:05 | PN ---
PROGRESS NOTE DATE OF SERVICE: 10/18/2018 PRESENTING COMPLAINT: Intubated. INTERVAL HISTORY: This patient with multiple medical problems at baseline presented with sepsis, pneumonia, UTI, Coumadin toxicity, status post bronchoscopy and mucous cyst removed, now has a PEG tube placed. Patient is also being treated for pseudomonas UTI and rosalie infection in the blood. The patient at baseline has chronic quadriplegia, suprapubic catheter and had only some right upper extremity movement. Just before the weekend patient was moved back to the ICU. This morning patient was found to be in respiratory distress and was intubated. The nurse has spoken to the patient's daughter. Currently patient is on FiO2 65 and PEEP of 5. The patient has not been responding for the last few days. The patient is on propofol 10 and Levophed. Patient's daughter and son-in-law are at the bedside. REVIEW OF SYSTEMS: Patient is not able to communicate. CURRENT MEDICATIONS: Reviewed. They include: 1. IV aztreonam. 2. IV fluconazole. 3. IV linezolid. 4. IV Levophed. 5. IV propofol. PHYSICAL EXAMINATION: Temperature 97.9, pulse 116, respiration 28, blood pressure 104/61, pulse ox 94% on 60%. GENERAL APPEARANCE: Lying in bed, intubated. ORAL CAVITY: Dry. EYES: Pupils equal. Conjunctivae pale. NECK: JVD unable to assess. Mass not palpable. Eyes pupil conjunctiva pale neck JVD unable to assess. RESPIRATORY: Effort increased. LUNGS: Decreased breath sounds. Some crackles. CARDIOVASCULAR: First and second sounds normal. No edema. Minimal edema. ABDOMEN: Soft, nontender. PEG in place. Suprapubic catheter in place. NEUROLOGICAL: Patient does respond to some pain; otherwise not capable of answering questions. Patient is also developing edema of the right upper extremity. INVESTIGATIONS: White count 8.1, hemoglobin 7.5, platelets 296. Blood gas showed pH of 7.08, pCO2 of 63. Bicarb of 19. Sodium 147, BUN 40, creatinine 1.06. Chest x-ray shows bilateral airspace disease. ASSESSMENT: 1. Bilateral multilobar pneumonia with aspiration, status post bronchoscopy, mucous plugs removed. Slow to respond. 2. Acute hypoxic respiratory failure, initially requiring high-flow oxygen, worsened now. Patient is on ventilator support. 3. Essential hypertension, history of. 4. Septic shock. Patient is on IV pressors. 5. Chronic quadriplegia with residual function of right upper extremity at baseline on presentation. 6. Chronic neurogenic bladder with chronic suprapubic catheter. 7. Acute Coumadin toxicity. Patient doing better with vitamin K. 8. Acute urinary tract infection from culture pseudomonas and Enterococcus faecalis. 9. Acute metabolic encephalopathy, not improving. 10.Peripheral neuropathy. 11.CODE STATUS: FULL CODE. 12.Paroxysmal atrial fibrillation, currently in sinus rhythm. 13.PEG tube placed. 14.Hypernatremia from free water deficit. 15.Anemia with positive blood cultures for Rosalie parapsilosis. PLAN: Prognosis remains very poor. Patient remains on IV antibiotics and antifungals. Also on pressure support. Did speak again at length to patient's daughter and son-in-law at the bedside. They say this was patient's wishes. They do understand that the patient will not be recovering from this. They have other family members who are out of the country and they think it may take up to 2 weeks for them to return. I did explain that the patient is suffering in the meantime, and since they realize that the patient will not be making any meaningful recovery, this is not really fair to the patient, as he is suffering; and I do respect at the same time their love and concern for the patient. I did also emphasize that the patient's wishes were to see the family, but I am not sure really if the patient knew that he would be suffering this much. At the present time we ended the conversation that we will continue the current medication and treatment plan, and the patient is to remain FULL CODE. Patient remains critically ill. MMODL / IJN: [id number] /
[2018-10-18 23:46] LABS: Glucose,Whole Blood 109 mg/dL (75-99)
[2018-10-19] MEDS: INSULIN ASPART (NovoLOG) 100 UNIT/ML VIAL SQ SCH ×4 (00:30→18:04)
[2018-10-19] MEDS: D5W WITH KCL 20 MEQ/L 1,000 ML IV SCH ×3 (04:31→20:39)
[2018-10-19] MEDS: PROPOFOL 1,000 MG in EMPTY BAG 1 BAG IV SCH (04:31)
[2018-10-19] MEDS: LINEZOLID 600 MG in DEXTROSE/WATER 1 300ML.BAG IVPB SCH ×2 (04:31→17:03)
[2018-10-19] MEDS: AZTREONAM 2 GM in SODIUM CHLORIDE 0.9% 100 ML IVPB SCH ×2 (05:01→14:45)
[2018-10-19 05:20] LABS: HCT 25.2 % (39.0-53.0); HGB 7.6 gm/dL (13.0-17.5); Hypochromasia Marked; MCH 31.4 pg (25.0-35.0); MCV 104.5 fL (80.0-100.0); Macrocytosis Moderate; Mean Platelet Volume 10.3; Platelet Count 285 k/uL (150-450); Poikilocytosis Slight; RBC 2.41 m/uL (4.30-5.90); RDW 15.4 % (11.5-15.5)
[2018-10-19 05:31] LABS: Albumin 1.7 g/dL (3.5-5.0); Magnesium 2.1 mg/dL (1.6-2.3); Phosphorus 3.5 mg/dL (2.5-4.5); Potassium 4.9 mmol/L (3.5-5.1); Total Bilirubin 0.6 mg/dL (0.2-1.3); Total Protein 4.1 g/dL (6.3-8.2)
[2018-10-19 06:33] LABS: Glucose,Whole Blood 155 mg/dL (75-99)
[2018-10-19 06:34] LABS: Band Neutrophils % 14 %; Eosinophils # (M) 0.26 k/uL (0-0.7); Lymphocytes # (M) 0.94 k/uL (1.0-4.8); Monocytes # (M) 0.17 k/uL (0-1.0); Neutrophils % (M) 71 %; Nucleated Red Blood Cells 1 /100 WBC (0-0); Total Cells Counted 200; WBC 8.5 k/uL (3.8-10.6)
[2018-10-19 06:35] LABS: Large Platelets Present
[2018-10-19 07:47] LABS: ABG Base Excess -8.3 mmol/L; ABG HCO3 18 mmol/L (21-25); ABG Oxygen Saturation 98.2 % (94-97); ABG PCO2 37 mmHg (35-45); ABG PO2 98 mmHg (83-108); ABG TCO2 19 mmol/L (19-24)
[2018-10-19] MEDS: IPRATROPIUM-ALBUTEROL 3 ML NEB INHALATION SCH ×4 (07:50→19:48)
[2018-10-19] MEDS: BUDESONIDE 1 MG/2 ML NEBU INHALATION SCH ×2 (07:50→19:49)
[2018-10-19] MEDS: FORMOTEROL FUMARATE 20 MCG/2 ML NEBU INHALATION SCH ×2 (07:50→19:49)
--- NOTE | 2018-10-19 09:09 | XR ---
EXAMINATION TYPE: XR chest 1V portable DATE OF EXAM: 10/19/2018 COMPARISON: 10/18/2018 INDICATION: Pulmonary congestion aspiration pneumonia TECHNIQUE: Single frontal view of the chest is obtained. FINDINGS: The heart size is normal. The pulmonary vasculature is normal. There is consolidation in the right upper lobe. Some atelectatic changes and infiltrate is at the rig ht lower lobe. Some mild infiltrate may be at the left base Endotracheal tube tip is 2 cm above the daniel. IMPRESSION: 1. Right upper and lower lobe infiltrates with some mild infiltrate at the left base. Findings are im proving from comparison.
[2018-10-19] MEDS: CHLORHEXIDINE GLUCONATE 15 ML CUP MUCOUS MEM SCH ×2 (09:20→20:40)
[2018-10-19] MEDS: MULTIVITAMINS, THERA 1 EACH TAB PO SCH (09:20)
[2018-10-19] MEDS: PANTOPRAZOLE 40 MG/10 ML VIAL IVP SCH (09:20)
[2018-10-19] MEDS: APIXABAN 2.5 MG TABLET PO SCH ×2 (09:20→20:39)
[2018-10-19] MEDS: BISACODYL 10 MG SUPP RECTAL SCH (09:21)
[2018-10-19] MEDS: CHOLECALCIFEROL 400 UNIT TAB PO SCH (09:21)
[2018-10-19 09:37] VITALS: BP 101/66
[2018-10-19] MEDS: LEVOTHYROXINE IVP 100 MCG/5 ML VIAL IV SCH (09:37)
[2018-10-19] MEDS: METOPROLOL TARTRATE 25 MG TAB PO SCH ×2 (10:20→20:39)
[2018-10-19 11:30] LABS: Glucose,Whole Blood 108 mg/dL (75-99)
--- NOTE | 2018-10-19 12:14 | P.PN ---
Subjective Progress Note Date: 10/19/18 Principal diagnosis: Acute pseudomonas aeruginosa urinary tract infection and multilobar pneumonia This is an 82-year-old white male, known history of quadriplegia, admitted on , main admitting diagnosis was sepsis, acute hypoxic respiratory failure, aspiration pneumonia, Pseudomonas urinary tract infection, electrolytes imbalance, coagulopathy and thrombocytopenia. His blood cultures have been negative since admission, his urine cultures were positive for pseudomonas aeruginosa sputum cultures positive for Rosalie albicans and E. coli. Patient was seen by Dr. Rivas on consultation, and he was treated with Merrem, he underwent a bronchoscopy and bronchoalveolar lavage, and it was eventually recommended that the patient needs a PEG tube placement. Dr. lópez saw the patient on consultation, and he underwent a trial of PEG tube placement, however numerous attempts were made and esophagus could not be intubated. Then it was the recommendation of undergoing surgical approach for a PEG tube placement and this would be done today by Dr. Christian. I saw the patient today in the ICU, he looks very comfortable, he is on 2 L nasal cannula, in no distress, he seems quite edematous and I believe that's probably because of his poor nutritional status, and hypoalbuminemia. Patient is on TPN for nutritional support. He is also on antibiotics for UTI and pneumonia. Labs were reviewed had a relatively normal electrolytes, normal renal profile, hemoglobin is 7.6. WBC count is 3.2. His last chest x-ray from 09/25 showed cardiomegaly and small pleural effusions, and bilateral airspace disease. On 10/17/2018 I'm seeing this patient for reevaluation in the intensive care unit. Note that he was brought in to the ICU yesterday and the patient had a bronchoscopy and had to be placed on BiPAP for respiratory support. The bronchoscopy was done and the therapeutic airway suctioning was done with copious amount of purulent respiratory secretions were suctioned out and the cultures still pending for now. Meanwhile the patient is still on BiPAP. The p atient remains hypotensive. The patient has currently receiving D5 water at the rate of 1 25 mL an hour and the patient is receiving free water replacements through the PEG tube. The sodium level is slowly improving. He is still altered in terms of his mentation and he has not been following any commands or answering questions. He can sometimes withdraw using his upper extremities. The patient is quadriplegic as mentioned earlier. Overall, the patient is still very much obtunded and unresponsive. He is tolerating his BiPAP which is currently set at a pressure of 12/5 cm of water with an FiO2 of 60%. The saturation is in order of 93-94%. He is having some improvement in his sodium level which is down to 157. The chloride level is down to 128. His potassium level is at 3.7. His hemoglobin is at 7.5. The patient is on broad-spectrum antibiotic coverage utilizing a combination of Diflucan and aztreonam. His pressors are running at 0.22 g per KG per minute. A triple lumen catheter will be inserted today for assisting with pressors and hemodynamic support. Infectious diseases on the case. The follow-up chest x-ray from today still showing persistent infiltration of the right upper lobe and the left lower lobe. His CODE STATUS is full. Cardiac rhythm is sinus. He is still on long-term and to coagulation with Eliquis. Tolerating his tube feeds. Reevaluated today on 10/18/2018, patient remains on BiPAP, presently on 50% FiO2, and IPAP of 12, EPAP of 5. Patient is calm, in no distress, he is also on levo fed drip at 0.28 mcg/kg/m. Remains on multiple antibiotics for his presumptive pneumonia involving the right upper lobe and left lower lobe, awaiting cultures from the BAL done yesterday, and antibiotics will be adjusted accordingly. Patient is quadriplegic, remains obtunded, unresponsive, but tolerating the BiPAP well. Infectious disease remain on the case, and his antibiotics are adjusted accordingly. Surprisingly the patient continues to have a full CODE STATUS. Continues on tube feeding, and that is well tolerated. CBC showed hemoglobin of 7.5 otherwise unremarkable. Electrolytes show sodium of 147 potassium 4.0 chloride 122 BUN is 40 creatinine 1.06. Rest of the labs were all reviewed, chest x-ray shows significant consolidation involving the right upper lobe and left lower lobe. Reevaluated today on 10/19/2018. Patient took a downhill course yesterday, required intubation and mechanical ventilation. His pulmonary status deterio rated, he was desaturating, he was getting tachycardic, and his chest x-ray was showing worsening of his bilateral pneumonia. Patient is now on mechanical ventilation, and his ventilator settings are assist control rate of 24th volume 400 FiO2 50% and PEEP of 5. Patient is on propofol at 20 mcg/kg/m. He is on norepinephrine at 20 mcg/m, and he is on D5 45 at 125 mL per hour. ABG this morning showed a pO2 of 98 pCO2 of 37 pH of 7.30. CBC showed a hemoglobin of 7.6 WBC count is 8.5. Electrolytes are normal BUN is 37 creatinine 1.15, slightly worse compared to baseline. Bronchial washing has been positive for MRSA, and his urine culture has been positive for pseudomonas aeruginosa. Blood cultures have been positive for Rosalie parapsilosis, patient has been on fluconazole. Being followed by infectious disease on the case. Patient is unresponsive to any stimuli. And has been paraplegic for quite some time. Objective - Vital Signs Vital signs: Vital Signs Temp 99.0 F 10/19/18 04:00 Pulse 98 10/19/18 11:46 Resp 24 10/19/18 11:00 BP 101/66 10/19/18 09:00 Pulse Ox 99 10/19/18 11:00 Intake & Output 10/18/18 10/19/18 10/19/18 18:59 06:59 18:59 Intake Total 3671.744 2141.842 715.734 Output Total 520 710 700 Balance 3151.744 1431.842 15.734 Weight 73.6 kg 76.3 kg 76.3 kg Intake: IV 3314 1908 640 Aztreonam 2 gm In Sodium 100 150 Chloride 0.9% 100 ml @ 100 mls/hr IVPB Q8H [facility] Rx#:[id number] D5w with KCl 20 Meq/l 1, 1625 1375 625 000 ml @ 125 mls/hr IV . Q8H [facility] Rx#:[id number] Fluconazole in NaCl,Iso- 200 Osm 400 mg In Saline 1 200ml.bag @ 100 mls/hr IVPB HS [facility] Rx#:[id number] Linezolid 600 mg In 300 Dextrose/Water 1 300ml. bag @ 150 mls/hr IVPB Q12H [facility] Rx#:[id number] Linezolid 600 mg In 150 Dextrose/Water 1 300ml. bag @ 150 mls/hr IVPB Q12H [facility] Rx#:[id number] Sodium Chloride 0.9% 1, 1000 000 ml @ 999 mls/hr IV . Q1H1M [facility] Rx#:[id number] Vancomycin 1,250 mg In 250 Sodium Chloride 0.9% 250 ml @ 125 mls/hr IVPB Q24H [facility] Rx#:[id number] pressure bag 39 33 15 Intake, IV Titration 232.744 233.842 75.734 Amount Magnesium Sulfate-D5w Pmx 100 1 gm In Dextrose/Water 1 100ml.bag @ 100 mls/hr IVPB Q1H [facility] Rx#: [id number] Norepinephrine 32 mg In 132.744 145.301 32.457 Sodium Chloride 0.9% 250 ml @ 0.05 MCG/KG/MIN 1. 917 mls/hr IV .Q24H [facility] Rx#:[id number] Propofol 1,000 mg In 88.541 43.277 Empty Bag 1 bag @ Titrate IV .Q0M [facility] Rx#: [id number] Tube Feeding 125 Output: Urine 520 710 700 Other: Voiding Method Indwelling Catheter Indwelling Catheter # Voids 1 # Bowel Movements 1 ABP, PAP, CO, CI - Last Documented Arterial Blood Pressure 95/57 - Exam Physical Exam: Revealed an 82-year-old white male paraplegic, on mechanical ventilation, sedated, in no distress. Head: Atraumatic, normocephalic, dry mucous membranes noted. HEENT:[Neck is supple.] [No neck masses.] [No thyromegaly.] [No JVD.] PERRLA, EOMI, no icterus, dry mucous membranes noted. Small superficial abrasion noted on the nose from his BiPAP Chest: [Crackles and rhonchi at the bases, symmetrical chest expansion, no chest wall tenderness.] Cardiac Exam: [Irregular irregular rhythm , tachycardic, Normal S1 and S2, no S3 gallop, no murmur.] Abdomen: [Soft, nontender, no megaly, no rebound, no guarding, normal bowel sounds.] Edematous abdominal wall is noted. PEG tube site is intact and clean. Extremities: [No clubbing, 2+ bipedal edema, no cyanosis. No calf tenderness. Neurological Exam: Paraplegic, Patient is nonverbal, unresponsive even to deep painful stimuli per Lymphatics: No lymphadenopathy. Skin: Small superficial abrasion noted on the bridge of his nose from BiPAP - Labs CBC & Chem 7: 10/19/18 05:05 10/19/18 05:05 Labs: Abnormal Lab Results - Last 24 Hours (Table) 10/18/18 10/18/18 10/18/18 Range/Units 15:17 18:04 23:44 RBC (4.30-5.90) m/uL Hgb (13.0-17.5) gm/dL Hct (39.0-53.0) % MCV (80.0-100.0) fL MCHC (31.0-37.0) g/dL Lymphocytes # (Manual) (1.0-4.8) k/uL Nucleated RBCs (0-0) /100 WBC ABG pH 7.08 L* (7.35-7.45) ABG pCO2 63 H (35-45) mmHg ABG pO2 134 H (83-108) mmHg ABG HCO3 19 L (21-25) mmol/L ABG O2 Saturation 99.1 H (94-97) % Chloride (98-107) mmol/L Carbon Dioxide (22-30) mmol/L BUN (9-20) mg/dL Glucose (74-99) mg/dL POC Glucose (mg/dL) 178 H 109 H (75-99) mg/dL Calcium (8.4-10.2) mg/dL AST (17-59) U/L Total Protein (6.3-8.2) g/dL Albumin (3.5-5.0) g/dL 10/19/18 10/19/18 10/19/18 Range/Units 05:05 05:05 06:32 RBC 2.41 L (4.30-5.90) m/uL Hgb 7.6 L (13.0-17.5) gm/dL Hct 25.2 L (39.0-53.0) % MCV 104.5 H (80.0-100.0) fL MCHC 30.0 L (31.0-37.0) g/dL Lymphocytes # (Manual) 0.94 L (1.0-4.8) k/uL Nucleated RBCs 1 H (0-0) /100 WBC ABG pH (7.35-7.45) ABG pCO2 (35-45) mmHg ABG pO2 (83-108) mmHg ABG HCO3 (21-25) mmol/L ABG O2 Saturation (94-97) % Chloride 118 H (98-107) mmol/L Carbon Dioxide 18 L (22-30) mmol/L BUN 37 H (9-20) mg/dL Glucose 107 H (74-99) mg/dL POC Glucose (mg/dL) 155 H (75-99) mg/dL Calcium 8.0 L (8.4-10.2) mg/dL AST 15 L (17-59) U/L Total Protein 4.1 L (6.3-8.2) g/dL Albumin 1.7 L (3.5-5.0) g/dL 10/19/18 10/19/18 Range/Units 07:43 11:28 RBC (4.30-5.90) m/uL Hgb (13.0-17.5) gm/dL Hct (39.0-53.0) % MCV (80.0-100.0) fL MCHC (31.0-37.0) g/dL Lymphocytes # (Manual) (1.0-4.8) k/uL Nucleated RBCs (0-0) /100 WBC ABG pH 7.30 L (7.35-7.45) ABG pCO2 (35-45) mmHg ABG pO2 (83-108) mmHg ABG HCO3 18 L (21-25) mmol/L ABG O2 Saturation 98.2 H (94-97) % Chloride (98-107) mmol/L Carbon Dioxide (22-30) mmol/L BUN (9-20) mg/dL Glucose (74-99) mg/dL POC Glucose (mg/dL) 108 H (75-99) mg/dL Calcium (8.4-10.2) mg/dL AST (17-59) U/L Total Protein (6.3-8.2) g/dL Albumin (3.5-5.0) g/dL Microbiology - Last 24 Hours (Table) 10/16/18 14:45 Gram Stain - Final Bronchoalviolar Lavage - Right Bronchial Washings Culture - Final Methicillin resist S. aureus Assessment and Plan Assessment: Impression: 1 acute hypoxic respiratory failure secondary to pneumonia, multilobar. Failed the BiPAP, presently on mechanical ventilation. 2 acute urinary tract infection secondary to pseudomonas aeruginosa presently on IV Azactam. 3 hyponatremia on presentation, resolved since admission. 4 supra pubic catheter for recurrent urinary tract infection 5 quadriplegia secondary to previous cervical fracture 6 previous history of deep vein thrombosis maintained on terminologist anticoagulation therapy 7 failed the swallow evaluation, patient is scheduled for PEG tube placement surgically today since previous attempts to do it under IV conscious sedation failed. 8 paroxysmal atrial fibrillation, 9 Coumadin toxicity on admission, resolved 10 history of hypertension 11 history of hypothyroidism 12 status post open gastrostomy tube placement and repair of incisional hernia 13 systemic candidemia, being addressed by infectious disease on the case. Cultures have been positive for Rosalie on multiple occasions. Remains on fluconazole. Recommendation: Continue present supportive care measures, including antibiotics, antifungal therapy hemodynamic support, nutritional support, continue to adjust antibiotics according to the cultures, overall prognosis is extremely poor, we will have to approach the daughter regarding future treatment plan, I would strongly recommend comfort care measures however if the CODE STATUS remains unchanged, will definitely recommend tracheostomy and eventually transfer to [facility]. Again his prognosis is extremely poor, and the quality of life is extremely poor at this point. We'll discuss with the daughter, and if she insists on full CODE STATUS, we'll recommend tracheostomy. Critical care time is 36 minute Time with Patient: Greater than 30
--- NOTE | 2018-10-19 15:50 | PN ---
PROGRESS NOTE DATE OF SERVICE: 10/18/2018. REASON FOR FOLLOW UP: 1. MRSA pneumonia. 2. Pseudomonas UTI. 3. Rosalie parapsilosis candidemia. INTERVAL HISTORY: The patient did go into respiratory distress. The patient apparently intubated, currently on 50% FiO2. Patient is requiring about 20 mics of Levophed to support blood pressure. Currently sedated on the vent. No other events has been reported and no diarrhea. PHYSICAL EXAMINATION: Blood pressure 102/64 with a pulse of 105, temperature of 98.2. He is 99% on 50% FiO2. General description is an elderly male lying in bed in no distress. Respiratory system: Unlabored breathing with decreased breath sounds in the bases. Heart S1, S2. Regular rate and rhythm. ABDOMEN: Soft, no tenderness. Extremities: No edema of the feet. LABS: Hemoglobin 7.6, white count 8.5, BUN of 37, creatinine 1.15. Sputum cultures with MRSA. DIAGNOSTIC IMPRESSION/PLAN: 1. Patient with acute respiratory failure which is likely multifactorial in this patient whose sputum positive for MRSA currently covered with Zyvox. . 2. Pseudomonas urinary tract infection, currently covered with Azactam 2 g q8 hours. 3. Rosalie parapsilosis candidemia, secondary to midline that has been discontinued. Currently with Diflucan. 4. Overall prognosis remains to be guarded. 5. Continue supportive care. MMODL / IJN: [id number] /
[2018-10-19 17:36] LABS: Glucose,Whole Blood 149 mg/dL (75-99)
--- NOTE | 2018-10-19 19:51 | PN ---
PROGRESS NOTE DATE OF SERVICE: October 19, 2018. PRESENTING COMPLAINT: Intubated. INTERVAL HISTORY: This patient with multiple problems at the baseline, presented with sepsis, pneumonia, UTI, Coumadin toxicity, status post bronchoscopy, mucous plugs removed. Has a PEG tube. The patient is treated for Pseudomonas UTI, Rosalie infection in the blood from a midline that was removed and MRSA pneumonia. The patient, at baseline, has chronic quadriplegia and suprapubic catheter, and at baseline had some right upper extremity movement. The patient is currently intubated with FiO2 15 and a PEEP of 5. Telemetry shows sinus rhythm. Drips include epinephrine at Levophed 20 mics and propofol. The patient had some loose stools and C diff has been sent out. The patient is barely responding. Tube feedings running at 30 mL an hour started. The patient is noncommunicative. No response to pain. REVIEW OF SYSTEMS: The patient unable to communicate. MEDICATIONS: Current medications reviewed that include: Eliquis, IV aztreonam, IV Diflucan, IV Zyvox, Levophed, propofol. PHYSICAL EXAMINATION: VITAL SIGNS: Temperature 97.8, pulse 108, respiration 24, blood pressure 75/41, pulse ox 98% on ventilator. GENERAL APPEARANCE: Lying in bed, intubated. EYES: Pupils equal. Conjunctivae pale. HEENT: External of nose and ears normal. Oral cavity dry. Endotracheal tube in place. NECK: JVD unable to assess. Mass not palpable. RESPIRATORY: Effort increased. LUNGS: Decreased breath sounds. Some crackles. CARDIOVASCULAR: 1st and 2nd sounds normal. Some edema. ABDOMEN: Soft, nontender. PEG tube in place. Suprapubic catheter. NEUROLOGICAL: Patient does respond to pain. Not following commands. The patient has edema lower extremities and upper extremities. INVESTIGATIONS: Accu-Cheks are noted. C diff came back negative. White count 8.5, hemoglobin 7.6, potassium 4.9, BUN 37, creatinine 1.15. The chest x-ray film personally reviewed by me shows some pleural effusion, possible infiltrates. ASSESSMENT: 1. Bilateral multilobar pneumonia with aspiration, status post bronchoscopy, mucous plugs removed with cultures positive for MRSA. 2. Acute hypoxic respiratory failure, initially requiring high-flow currently, on ventilator support with no improvement. 3. Essential hypertension history. 4. Septic shock. The patient is on IV pressor support with Levophed. 5. Chronic quadriplegia with residual right upper extremity at baseline. 6. Chronic neurogenic bladder with chronic suprapubic catheter. 7. Acute Coumadin toxicity on presentation, reversed with vitamin K. 8. Acute urinary tract infection from Pseudomonas and Enterococcus faecalis. 9. Acute metabolic encephalopathy. 10.Peripheral neuropathy. 11.CODE STATUS: FULL CODE. 12.Paroxysmal atrial fibrillation currently in sinus rhythm. 13.PEG tube feeding. 14.Hyponatremia from free water deficit, better. 15.Anemia. 16.Positive blood cultures with Rosalie parapsilosis from midline that was removed. PLAN: Prognosis remains poor. The patient remains on antibiotics, supportive care and pressor support. I spoke to Dr. Starkey, he is going to talk to patient's daughter about tracheostomy tube. MMODL / IJN: [id number] /
[2018-10-19] MEDS: FLUCONAZOLE IN NACL,ISO-OSM 400 MG in SALINE 1 200ML.BAG IVPB SCH (20:40)
[2018-10-19] MEDS: NOREPINEPHRINE 32 MG in SODIUM CHLORIDE 0.9% 250 ML IV SCH (20:40)
[2018-10-20] LABS: Glucose,Whole Blood 174 mg/dL (75-99)
[2018-10-20] MEDS: AZTREONAM 2 GM in SODIUM CHLORIDE 0.9% 100 ML IVPB SCH ×4 (01:29→21:42)
[2018-10-20] MEDS: INSULIN ASPART (NovoLOG) 100 UNIT/ML VIAL SQ SCH ×5 (01:29→18:09)
[2018-10-20 04:45] LABS: Basophils % (A) 0 %; Eosinophils # (A) 0.2 k/uL (0-0.7); Eosinophils % (A) 2 %; HCT 26.7 % (39.0-53.0); HGB 7.6 gm/dL (13.0-17.5); Hypochromasia Marked; Lymphocytes # (A) 1.3 k/uL (1.0-4.8); Lymphocytes % (A) 14 %; MCH 29.8 pg (25.0-35.0); MCHC 28.4 g/dL (31.0-37.0); Macrocytosis Moderate; Mean Platelet Volume 10.2; Monocytes # (A) 0.3 k/uL (0-1.0); Monocytes % (A) 3 %; Neutrophils # (A) 7.4 k/uL (1.3-7.7); Neutrophils % (A) 80 %; Platelet Count 269 k/uL (150-450); Poikilocytosis Slight; RBC 2.55 m/uL (4.30-5.90); RDW 15.5 % (11.5-15.5); WBC 9.3 k/uL (3.8-10.6)
[2018-10-20 04:58] LABS: Albumin 1.6 g/dL (3.5-5.0); Calcium 8.5 mg/dL (8.4-10.2); Phosphorus 3.6 mg/dL (2.5-4.5); Potassium 4.8 mmol/L (3.5-5.1); Total Bilirubin 0.5 mg/dL (0.2-1.3)
[2018-10-20] MEDS: LINEZOLID 600 MG in DEXTROSE/WATER 1 300ML.BAG IVPB SCH ×2 (05:00→15:56)
[2018-10-20] MEDS: D5W WITH KCL 20 MEQ/L 1,000 ML IV SCH ×3 (05:09→21:41)
[2018-10-20 05:21] LABS: Glucose,Whole Blood 130 mg/dL (75-99)
[2018-10-20 07:13] LABS: Glucose,Whole Blood 196 mg/dL (75-99)
[2018-10-20 07:25] LABS: ABG Base Excess -9.5 mmol/L; ABG HCO3 18 mmol/L (21-25); ABG Oxygen Saturation 97.9 % (94-97); ABG PCO2 41 mmHg (35-45); ABG PH 7.25 (7.35-7.45); ABG PO2 104 mmHg (83-108); ABG TCO2 19 mmol/L (19-24)
[2018-10-20] MEDS: BISACODYL 10 MG SUPP RECTAL SCH (07:51)
[2018-10-20] MEDS: BUDESONIDE 1 MG/2 ML NEBU INHALATION SCH ×2 (08:11→20:16)
[2018-10-20] MEDS: FORMOTEROL FUMARATE 20 MCG/2 ML NEBU INHALATION SCH ×2 (08:11→20:16)
[2018-10-20] MEDS: IPRATROPIUM-ALBUTEROL 3 ML NEB INHALATION SCH ×4 (08:11→20:16)
[2018-10-20] MEDS: CHLORHEXIDINE GLUCONATE 15 ML CUP MUCOUS MEM SCH ×2 (08:39→21:41)
[2018-10-20] MEDS: PANTOPRAZOLE 40 MG/10 ML VIAL IVP SCH (08:40)
[2018-10-20] MEDS: APIXABAN 2.5 MG TABLET PO SCH ×2 (08:40→21:41)
[2018-10-20] MEDS: CHOLECALCIFEROL 400 UNIT TAB PO SCH (08:40)
[2018-10-20] MEDS: METOPROLOL TARTRATE 25 MG TAB PO SCH ×2 (08:40→21:41)
[2018-10-20] MEDS: LEVOTHYROXINE IVP 100 MCG/5 ML VIAL IV SCH (08:40)
[2018-10-20] MEDS: MULTIVITAMINS, THERA 1 EACH TAB PO SCH (08:40)
--- NOTE | 2018-10-20 09:17 | XR ---
EXAMINATION TYPE: XR chest 1V portable DATE OF EXAM: 10/20/2018 COMPARISON: 10/19/2018 INDICATION: Pulmonary congestion aspiration pneumonia TECHNIQUE: Single frontal view of the chest is obtained. FINDINGS: The heart size is normal. The pulmonary vasculature is normal. There is a right upper lobe consolidation which is worsening from comparison. Left basilar infiltrate and/or small left pleural effusion is present. Some mild infiltrate and minimal right pleural effusi on is likely present. Endotracheal tube tip is above the daniel. IMPRESSION: 1. Bibasilar infiltrates with small bilateral pleural effusions. 2. Worsening right upper lobe consolidation. Correlate for pneumonia. Follow-up to clearing is recomm ended.
[2018-10-20] MEDS ORDERED: SODIUM BICARB 8.4% 50 ML SYR (1 MEQ/ML) IV STA (10:03)
[2018-10-20 11:38] LABS: Glucose,Whole Blood 154 mg/dL (75-99)
--- NOTE | 2018-10-20 11:46 | P.PN ---
Subjective Progress Note Date: 10/20/18 Principal diagnosis: Acute pseudomonas aeruginosa urinary tract infection and multilobar pneumonia This is an 82-year-old white male, known history of quadriplegia, admitted on , main admitting diagnosis was sepsis, acute hypoxic respiratory failure, aspiration pneumonia, Pseudomonas urinary tract infection, electrolytes imbalance, coagulopathy and thrombocytopenia. His blood cultures have been negative since admission, his urine cultures were positive for pseudomonas aeruginosa sputum cultures positive for Rosalie albicans and E. coli. Patient was seen by Dr. Rivas on consultation, and he was treated with Merrem, he underwent a bronchoscopy and bronchoalveolar lavage, and it was eventually recommended that the patient needs a PEG tube placement. Dr. lópez saw the patient on consultation, and he underwent a trial of PEG tube placement, however numerous attempts were made and esophagus could not be intubated. Then it was the recommendation of undergoing surgical approach for a PEG tube placement and this would be done today by Dr. Christian. I saw the patient today in the ICU, he looks very comfortable, he is on 2 L nasal cannula, in no distress, he seems quite edematous and I believe that's probably because of his poor nutritional status, and hypoalbuminemia. Patient is on TPN for nutritional support. He is also on antibiotics for UTI and pneumonia. Labs were reviewed had a relatively normal electrolytes, normal renal profile, hemoglobin is 7.6. WBC count is 3.2. His last chest x-ray from 09/25 showed cardiomegaly and small pleural effusions, and bilateral airspace disease. On 10/17/2018 I'm seeing this patient for reevaluation in the intensive care unit. Note that he was brought in to the ICU yesterday and the patient had a bronchoscopy and had to be placed on BiPAP for respiratory support. The bronchoscopy was done and the therapeutic airway suctioning was done with copious amount of purulent respiratory secretions were suctioned out and the cultures still pending for now. Meanwhile the patient is still on BiPAP. The p atient remains hypotensive. The patient has currently receiving D5 water at the rate of 1 25 mL an hour and the patient is receiving free water replacements through the PEG tube. The sodium level is slowly improving. He is still altered in terms of his mentation and he has not been following any commands or answering questions. He can sometimes withdraw using his upper extremities. The patient is quadriplegic as mentioned earlier. Overall, the patient is still very much obtunded and unresponsive. He is tolerating his BiPAP which is currently set at a pressure of 12/5 cm of water with an FiO2 of 60%. The saturation is in order of 93-94%. He is having some improvement in his sodium level which is down to 157. The chloride level is down to 128. His potassium level is at 3.7. His hemoglobin is at 7.5. The patient is on broad-spectrum antibiotic coverage utilizing a combination of Diflucan and aztreonam. His pressors are running at 0.22 g per KG per minute. A triple lumen catheter will be inserted today for assisting with pressors and hemodynamic support. Infectious diseases on the case. The follow-up chest x-ray from today still showing persistent infiltration of the right upper lobe and the left lower lobe. His CODE STATUS is full. Cardiac rhythm is sinus. He is still on long-term and to coagulation with Eliquis. Tolerating his tube feeds. Reevaluated today on 10/18/2018, patient remains on BiPAP, presently on 50% FiO2, and IPAP of 12, EPAP of 5. Patient is calm, in no distress, he is also on levo fed drip at 0.28 mcg/kg/m. Remains on multiple antibiotics for his presumptive pneumonia involving the right upper lobe and left lower lobe, awaiting cultures from the BAL done yesterday, and antibiotics will be adjusted accordingly. Patient is quadriplegic, remains obtunded, unresponsive, but tolerating the BiPAP well. Infectious disease remain on the case, and his antibiotics are adjusted accordingly. Surprisingly the patient continues to have a full CODE STATUS. Continues on tube feeding, and that is well tolerated. CBC showed hemoglobin of 7.5 otherwise unremarkable. Electrolytes show sodium of 147 potassium 4.0 chloride 122 BUN is 40 creatinine 1.06. Rest of the labs were all reviewed, chest x-ray shows significant consolidation involving the right upper lobe and left lower lobe. Reevaluated today on 10/19/2018. Patient took a downhill course yesterday, required intubation and mechanical ventilation. His pulmonary status deterio rated, he was desaturating, he was getting tachycardic, and his chest x-ray was showing worsening of his bilateral pneumonia. Patient is now on mechanical ventilation, and his ventilator settings are assist control rate of 24th volume 400 FiO2 50% and PEEP of 5. Patient is on propofol at 20 mcg/kg/m. He is on norepinephrine at 20 mcg/m, and he is on D5 45 at 125 mL per hour. ABG this morning showed a pO2 of 98 pCO2 of 37 pH of 7.30. CBC showed a hemoglobin of 7.6 WBC count is 8.5. Electrolytes are normal BUN is 37 creatinine 1.15, slightly worse compared to baseline. Bronchial washing has been positive for MRSA, and his urine culture has been positive for pseudomonas aeruginosa. Blood cultures have been positive for Rosalie parapsilosis, patient has been on fluconazole. Being followed by infectious disease on the case. Patient is unresponsive to any stimuli. And has been paraplegic for quite some time. Reevaluated today on 10/20/2018, patient remains on mechanical ventilation, and his ventilator settings are tidal volume of 400 FiO2 of 50% assist control rate of 24 PEEP of 5. Patient is on 13 mcg/m of levo fed, and on 50 mcg/kg/m of propofol. His ABG this morning is reflecting a picture of metabolic acidosis, pH of 7.5 and bicarb is 18. Hence sodium bicarb was given. His other labs were reviewed, hemoglobin is 7.6. Electrolytes are normal, BUN is 35 creatinine 1 .18. Chest x-ray was also reviewed and showed worsening infiltrate in the right upper lobe and in the left lower lobe. Medications were reviewed and they are basically the same. Objective - Vital Signs Vital signs: Vital Signs Temp 96.4 F L 10/20/18 08:00 Pulse 81 10/20/18 11:00 Resp 24 10/20/18 11:00 BP 101/66 10/19/18 09:00 Pulse Ox 100 10/20/18 11:00 Intake & Output 10/19/18 10/20/18 10/20/18 18:59 06:59 18:59 Intake Total 2263.817 2198.507 660 Output Total 1900 1875 335 Balance 363.817 323.507 325 Weight 76.3 kg 77.4 kg Intake: IV 1935 2135 640 Aztreonam 2 gm In Sodium 100 100 Chloride 0.9% 100 ml @ 100 mls/hr IVPB Q8H [facility] Rx#:[id number] D5w with KCl 20 Meq/l 1, 1500 1500 625 000 ml @ 125 mls/hr IV . Q8H [facility] Rx#:[id number] Fluconazole in NaCl,Iso- 200 Osm 400 mg In Saline 1 200ml.bag @ 100 mls/hr IVPB HS [facility] Rx#:[id number] Linezolid 600 mg In 300 300 Dextrose/Water 1 300ml. bag @ 150 mls/hr IVPB Q12H [facility] Rx#:[id number] pressure bag 36 36 15 Intake, IV Titration 177.817 32.507 Amount Norepinephrine 32 mg In 78.842 32.507 Sodium Chloride 0.9% 250 ml @ 0.05 MCG/KG/MIN 1. 917 mls/hr IV .Q24H [facility] Rx#:[id number] Propofol 1,000 mg In 98.975 Empty Bag 1 bag @ Titrate IV .Q0M [facility] Rx#: [id number] Tube Feeding 150 30 20 Output: Urine 1900 1875 335 Other: Voiding Method Indwelling Catheter Indwelling Catheter Indwelling Catheter ABP, PAP, CO, CI - Last Documented Arterial Blood Pressure 139/71 - Exam Physical Exam: Revealed an 82-year-old white male paraplegic, on mechanical ventilation, sedated, in no distress. Head: Atraumatic, normocephalic, dry mucous membranes noted. HEENT:[Neck is supple.] [No neck masses.] [No thyromegaly.] [No JVD.] PERRLA, EOMI, no icterus, dry mucous membranes noted. Small superficial abrasion noted on the nose from his BiPAP Chest: [Crackles and rhonchi at the bases, symmetrical chest expansion, no chest wall tenderness.] Cardiac Exam: [Irregular irregular rhythm , tachycardic, Normal S1 and S2, no S3 gallop, no murmur.] Abdomen: [Soft, nontender, no megaly, no rebound, no guarding, normal bowel sounds.] Edematous abdominal wall is noted. PEG tube site is intact and clean. Extremities: [No clubbing, 2+ bipedal edema, no cyanosis. No calf tenderness. Neurological Exam: Paraplegic, Patient is nonverbal, unresponsive even to deep painful stimuli per Lymphatics: No lymphadenopathy. Skin: Small superficial abrasion noted on the bridge of his nose unchanged from yesterday. - Labs CBC & Chem 7: 10/20/18 04:20 10/20/18 04:20 Labs: Abnormal Lab Results - Last 24 Hours (Table) 10/16/18 10/19/18 10/19/18 Range/Units 14:45 17:34 23:58 RBC (4.30-5.90) m/uL Hgb (13.0-17.5) gm/dL Hct (39.0-53.0) % MCV (80.0-100.0) fL MCHC (31.0-37.0) g/dL ABG pH (7.35-7.45) ABG HCO3 (21-25) mmol/L ABG O2 Saturation (94-97) % Chloride (98-107) mmol/L Carbon Dioxide (22-30) mmol/L BUN (9-20) mg/dL Glucose (74-99) mg/dL POC Glucose (mg/dL) 149 H 174 H (75-99) mg/dL AST (17-59) U/L Total Protein (6.3-8.2) g/dL Albumin (3.5-5.0) g/dL Viral Test See Below H 10/20/18 10/20/18 10/20/18 Range/Units 04:20 04:20 05:19 RBC 2.55 L (4.30-5.90) m/uL Hgb 7.6 L (13.0-17.5) gm/dL Hct 26.7 L (39.0-53.0) % MCV 105.0 H (80.0-100.0) fL MCHC 28.4 L (31.0-37.0) g/dL ABG pH (7.35-7.45) ABG HCO3 (21-25) mmol/L ABG O2 Saturation (94-97) % Chloride 122 H (98-107) mmol/L Carbon Dioxide 17 L (22-30) mmol/L BUN 35 H (9-20) mg/dL Glucose 123 H (74-99) mg/dL POC Glucose (mg/dL) 130 H (75-99) mg/dL AST 15 L (17-59) U/L Total Protein 4.0 L (6.3-8.2) g/dL Albumin 1.6 L (3.5-5.0) g/dL Viral Test 10/20/18 10/20/18 10/20/18 Range/Units 07:12 07:20 11:36 RBC (4.30-5.90) m/uL Hgb (13.0-17.5) gm/dL Hct (39.0-53.0) % MCV (80.0-100.0) fL MCHC (31.0-37.0) g/dL ABG pH 7.25 L (7.35-7.45) ABG HCO3 18 L (21-25) mmol/L ABG O2 Saturation 97.9 H (94-97) % Chloride (98-107) mmol/L Carbon Dioxide (22-30) mmol/L BUN (9-20) mg/dL Glucose (74-99) mg/dL POC Glucose (mg/dL) 196 H 154 H (75-99) mg/dL AST (17-59) U/L Total Protein (6.3-8.2) g/dL Albumin (3.5-5.0) g/dL Viral Test Microbiology - Last 24 Hours (Table) 10/16/18 14:45 Gram Stain - Final Bronchoalviolar Lavage - Right Bronchial Washings Culture - Final Methicillin resist S. aureus Assessment and Plan Assessment: Impression: 1 acute hypoxic respiratory failure secondary to multilobar pneumonia, remains on mechanical ventilation. 2 acute urinary tract infection secondary to pseudomonas aeruginosa presently on IV Azactam. 3 hyponatremia on presentation, resolved since admission. 4 supra pubic catheter for recurrent urinary tract infection 5 quadriplegia secondary to previous cervical fracture 6 previous history of deep vein thrombosis maintained on usp anticoagulation therapy 7 failed the swallow evaluation, patient is scheduled for PEG tube placement surgically today since previous attempts to do it under IV conscious sedation failed. 8 paroxysmal atrial fibrillation, 9 Coumadin toxicity on admission, resolved 10 history of hypertension 11 history of hypothyroidism 12 status post open gastrostomy tube placement and repair of incisional hernia 13 systemic candidemia, being addressed by infectious disease on the case. Cultures have been positive for Rosalie on multiple occasions. Remains on fluconazole. 14 metabolic acidosis, non-anion gap metabolic acidosis multifactorial, but mackenzie rly the patient is likely septic. Sources of sepsis are multiple including lungs and urine. Recommendation: I had a long discussion with his daughter yesterday, and updated her on the condition of her father. She was made aware that he is extremely ill, and we even talked about the option of tracheostomy, she is realizing that prognosis is extremely poor as a matter fact it is likely futile. The daughter will be coming back today, and she was agreeable to change the CODE STATUS to DO NOT RESUSCITATE, and she is going to be agreeable most likely today to consider comfort care measures and terminal weaning. In the meantime we'll continue present supportive measures including antibiotics, hemodynamic support, antifungal therapy, antibiotics, nutritional support, and of course prognosis is again poor and futile. Critical care time is 32 minutes Time with Patient: Greater than 30
[2018-10-20] MEDS: PROPOFOL 1,000 MG in EMPTY BAG 1 BAG IV SCH (15:59)
--- NOTE | 2018-10-20 17:37 | PN ---
PROGRESS NOTE DATE OF SERVICE: 10/20/2018. REASON FOR FOLLOW UP: 1. MRSA pneumonia. 2. Pseudomonas UTI. 3. Rosalie parapsilosis candidemia. INTERVAL HISTORY: The patient is currently afebrile. The patient is still requiring pressor support in the form of Levophed, however, dosing slightly decreased down to 18 mics. No significant purulent secretions of 80 per the nursing staff and no significant diarrhea reported. PHYSICAL EXAMINATION: Blood pressure is 129/70 with a pulse of 82. Temperature 97.5. He is 100% on 50% FiO2. General description is an elderly male lying in bed in no distress. Respiratory system: Unlabored breathing with decreased breath sounds in the base. No wheeze. Heart S1, S2. Regular rate and rhythm. Abdomen soft. No tenderness. Extremities: No edema of the feet. LABS: Hemoglobin 7.3, white count 9.3 with a BUN of 35, creatinine 1.18. Bronch also has been MRSA. Blood culture repeat has been negative. Fungal cultures from blood has been negative so far. DIAGNOSTIC IMPRESSION/PLAN: 1. Patient with acute respiratory failure which is likely multifactorial component of pneumonia. Sputum has been MRSA. The patient is currently covered on Zyvox and to continue. 2. Patient has Pseudomonas UTI, currently covered with Azactam 2 g q.8 hours. 3. Patient with Rosalie parapsilosis candidemia secondary to midline has been discontinued. Currently on fluconazole, the patient needs for 2 weeks with negative blood cultures. 4. Continue to monitor his clinical course closely. Overall prognosis remains to be guarded per the RN. Possible care once family is available. Continue supportive care. MMODL / IJN: [id number] /
[2018-10-20 18:06] LABS: Glucose,Whole Blood 195 mg/dL (75-99)
[2018-10-20] MEDS: FLUCONAZOLE IN NACL,ISO-OSM 400 MG in SALINE 1 200ML.BAG IVPB SCH (21:41)
[2018-10-20] MEDS: NOREPINEPHRINE 32 MG in SODIUM CHLORIDE 0.9% 250 ML IV SCH (21:42)
--- NOTE | 2018-10-20 23:34 | PN ---
PROGRESS NOTE DATE OF SERVICE: October 20, 2018. PRESENTING COMPLAINT: Intubated. INTERVAL HISTORY: This is a patient presented with sepsis, pneumonia, UTI, Coumadin toxicity, had bronchoscopy, mucous plugs removed. Also had a PEG tube. Also treated for Pseudomonas UTI, Rosalie infection in the blood from midline that was removed with MRSA pneumonia. The patient at baseline has chronic quadriplegia and suprapubic catheter. The patient remains intubated FiO2 50, PEEP of 5. Telemetry shows sinus rhythm. The patient also remains on Levophed drip and propofol. The patient remains minimally responsive. Was informed the family has decided to proceed with terminal extubation tomorrow. Some other family members are coming. REVIEW OF SYSTEMS: Patient is unable to communicate. CURRENT MEDICATIONS: Reviewed that include IV aztreonam, IV Diflucan, IV linezolid, IV Diprivan and IV Levophed. PHYSICAL EXAMINATION: VITAL SIGNS: Temperature 97.5, pulse 72, respiration 24, blood pressure 103/57, pulse 100 percent on the ventilator. GENERAL APPEARANCE: Propped up in bed, intubated. EYES: Pupils equal. Conjunctivae pale. HEENT: External appearance of nose and ears normal. Oral cavity dry. Endotracheal tube placed. NECK: JVD unable to assess. Mass not palpable. RESPIRATORY: Effort increased. LUNGS: Decreased breath sounds. Some crackles. Cardiovascular: 1st and 2nd sounds normal. Edema present. ABDOMEN: Soft, nontender. PEG tube in place. Suprapubic catheter. NEUROLOGICAL: Patient is not really following commands. Edema is present. INVESTIGATIONS: Accu-Cheks noted. White count 9.3, hemoglobin 7.6, platelets 269. Potassium 4.8, BUN 35, creatinine 1.18. ASSESSMENT: 1. Bilateral multilobar pneumonia with aspiration, status post bronchoscopy and mucous plugs removed. Cultures positive for MRSA. 2. Acute hypoxic respiratory failure, initially requiring hypoxia, currently on ventilator support with no improvement. 3. Essential hypertension history. 4. Septic shock. The patient remains on IV pressor support with Levophed. 5. Chronic quadriplegia with baseline some right upper extremity residual movement. 6. Chronic neurogenic bladder with chronic suprapubic catheter. 7. Acute Coumadin toxicity on presentation, reversed with vitamin K. 8. Acute urinary tract infection with Pseudomonas and Enterococcus faecalis. 9. Acute metabolic encephalopathy. 10.Peripheral neuropathy. 11.Paroxysmal atrial fibrillation currently in sinus rhythm. 12.PEG tube feeding. 13.Hypernatremia from free water deficit. 14.Anemia. 15.Positive blood cultures with Rosalie parapsilosis from midline that was removed. PLAN: Prognosis remains poor. Continue current medication and treatment plan. Continue supportive care. Pressor support. The patient is due to get terminally extubated tomorrow as per the daughter. MMODL / IJN: [id number] /
[2018-10-20 23:59] LABS: Glucose,Whole Blood 140 mg/dL (75-99)
[2018-10-21] MEDS: INSULIN ASPART (NovoLOG) 100 UNIT/ML VIAL SQ SCH ×3 (00:49→13:23)
[2018-10-21] MEDS: D5W WITH KCL 20 MEQ/L 1,000 ML IV SCH ×2 (05:24→13:23)
[2018-10-21] MEDS: LINEZOLID 600 MG in DEXTROSE/WATER 1 300ML.BAG IVPB SCH (05:29)
[2018-10-21] MEDS: PROPOFOL 1,000 MG in EMPTY BAG 1 BAG IV SCH ×2 (05:32→06:38)
[2018-10-21] MEDS: AZTREONAM 2 GM in SODIUM CHLORIDE 0.9% 100 ML IVPB SCH ×2 (06:40→14:24)
[2018-10-21 07:19] LABS: Glucose,Whole Blood 98 mg/dL (75-99)
[2018-10-21] MEDS: BUDESONIDE 1 MG/2 ML NEBU INHALATION SCH (07:43)
[2018-10-21] MEDS: IPRATROPIUM-ALBUTEROL 3 ML NEB INHALATION SCH ×2 (07:43→11:25)
[2018-10-21] MEDS: FORMOTEROL FUMARATE 20 MCG/2 ML NEBU INHALATION SCH (07:43)
[2018-10-21] MEDS: CHLORHEXIDINE GLUCONATE 15 ML CUP MUCOUS MEM SCH (08:37)
[2018-10-21] MEDS: APIXABAN 2.5 MG TABLET PO SCH (09:24)
[2018-10-21] MEDS: LEVOTHYROXINE IVP 100 MCG/5 ML VIAL IV SCH (09:24)
[2018-10-21] MEDS: CHOLECALCIFEROL 400 UNIT TAB PO SCH (09:24)
[2018-10-21] MEDS: PANTOPRAZOLE 40 MG/10 ML VIAL IVP SCH (09:25)
[2018-10-21] MEDS: MULTIVITAMINS, THERA 1 EACH TAB PO SCH (09:25)
[2018-10-21] MEDS: METOPROLOL TARTRATE 25 MG TAB PO SCH (09:25)
[2018-10-21] MEDS: BISACODYL 10 MG SUPP RECTAL SCH (09:26)
[2018-10-21 10:52] VITALS: BMI 26.7
--- NOTE | 2018-10-21 12:16 | P.PN ---
Subjective Progress Note Date: 10/21/18 Principal diagnosis: Acute pseudomonas aeruginosa urinary tract infection and multilobar pneumonia This is an 82-year-old white male, known history of quadriplegia, admitted on , main admitting diagnosis was sepsis, acute hypoxic respiratory failure, aspiration pneumonia, Pseudomonas urinary tract infection, electrolytes imbalance, coagulopathy and thrombocytopenia. His blood cultures have been negative since admission, his urine cultures were positive for pseudomonas aeruginosa sputum cultures positive for Rosalie albicans and E. coli. Patient was seen by Dr. Rivas on consultation, and he was treated with Merrem, he underwent a bronchoscopy and bronchoalveolar lavage, and it was eventually recommended that the patient needs a PEG tube placement. Dr. lópez saw the patient on consultation, and he underwent a trial of PEG tube placement, however numerous attempts were made and esophagus could not be intubated. Then it was the recommendation of undergoing surgical approach for a PEG tube placement and this would be done today by Dr. Christian. I saw the patient today in the ICU, he looks very comfortable, he is on 2 L nasal cannula, in no distress, he seems quite edematous and I believe that's probably because of his poor nutritional status, and hypoalbuminemia. Patient is on TPN for nutritional support. He is also on antibiotics for UTI and pneumonia. Labs were reviewed had a relatively normal electrolytes, normal renal profile, hemoglobin is 7.6. WBC count is 3.2. His last chest x-ray from 09/25 showed cardiomegaly and small pleural effusions, and bilateral airspace disease. On 10/17/2018 I'm seeing this patient for reevaluation in the intensive care unit. Note that he was brought in to the ICU yesterday and the patient had a bronchoscopy and had to be placed on BiPAP for respiratory support. The bronchoscopy was done and the therapeutic airway suctioning was done with copious amount of purulent respiratory secretions were suctioned out and the cultures still pending for now. Meanwhile the patient is still on BiPAP. The p atient remains hypotensive. The patient has currently receiving D5 water at the rate of 1 25 mL an hour and the patient is receiving free water replacements through the PEG tube. The sodium level is slowly improving. He is still altered in terms of his mentation and he has not been following any commands or answering questions. He can sometimes withdraw using his upper extremities. The patient is quadriplegic as mentioned earlier. Overall, the patient is still very much obtunded and unresponsive. He is tolerating his BiPAP which is currently set at a pressure of 12/5 cm of water with an FiO2 of 60%. The saturation is in order of 93-94%. He is having some improvement in his sodium level which is down to 157. The chloride level is down to 128. His potassium level is at 3.7. His hemoglobin is at 7.5. The patient is on broad-spectrum antibiotic coverage utilizing a combination of Diflucan and aztreonam. His pressors are running at 0.22 g per KG per minute. A triple lumen catheter will be inserted today for assisting with pressors and hemodynamic support. Infectious diseases on the case. The follow-up chest x-ray from today still showing persistent infiltration of the right upper lobe and the left lower lobe. His CODE STATUS is full. Cardiac rhythm is sinus. He is still on long-term and to coagulation with Eliquis. Tolerating his tube feeds. Reevaluated today on 10/18/2018, patient remains on BiPAP, presently on 50% FiO2, and IPAP of 12, EPAP of 5. Patient is calm, in no distress, he is also on levo fed drip at 0.28 mcg/kg/m. Remains on multiple antibiotics for his presumptive pneumonia involving the right upper lobe and left lower lobe, awaiting cultures from the BAL done yesterday, and antibiotics will be adjusted accordingly. Patient is quadriplegic, remains obtunded, unresponsive, but tolerating the BiPAP well. Infectious disease remain on the case, and his antibiotics are adjusted accordingly. Surprisingly the patient continues to have a full CODE STATUS. Continues on tube feeding, and that is well tolerated. CBC showed hemoglobin of 7.5 otherwise unremarkable. Electrolytes show sodium of 147 potassium 4.0 chloride 122 BUN is 40 creatinine 1.06. Rest of the labs were all reviewed, chest x-ray shows significant consolidation involving the right upper lobe and left lower lobe. Reevaluated today on 10/19/2018. Patient took a downhill course yesterday, required intubation and mechanical ventilation. His pulmonary status deterio rated, he was desaturating, he was getting tachycardic, and his chest x-ray was showing worsening of his bilateral pneumonia. Patient is now on mechanical ventilation, and his ventilator settings are assist control rate of 24th volume 400 FiO2 50% and PEEP of 5. Patient is on propofol at 20 mcg/kg/m. He is on norepinephrine at 20 mcg/m, and he is on D5 45 at 125 mL per hour. ABG this morning showed a pO2 of 98 pCO2 of 37 pH of 7.30. CBC showed a hemoglobin of 7.6 WBC count is 8.5. Electrolytes are normal BUN is 37 creatinine 1.15, slightly worse compared to baseline. Bronchial washing has been positive for MRSA, and his urine culture has been positive for pseudomonas aeruginosa. Blood cultures have been positive for Rosalie parapsilosis, patient has been on fluconazole. Being followed by infectious disease on the case. Patient is unresponsive to any stimuli. And has been paraplegic for quite some time. Reevaluated today on 10/20/2018, patient remains on mechanical ventilation, and his ventilator settings are tidal volume of 400 FiO2 of 50% assist control rate of 24 PEEP of 5. Patient is on 13 mcg/m of levo fed, and on 50 mcg/kg/m of propofol. His ABG this morning is reflecting a picture of metabolic acidosis, pH of 7.5 and bicarb is 18. Hence sodium bicarb was given. His other labs were reviewed, hemoglobin is 7.6. Electrolytes are normal, BUN is 35 creatinine 1 .18. Chest x-ray was also reviewed and showed worsening infiltrate in the right upper lobe and in the left lower lobe. Medications were reviewed and they are basically the same. Reevaluated today on 10/21/2018, remains on mechanical ventilation, same ventilator settings, family is supposed to come in today and initiate terminal weaning. No labs were done today, no chest x-ray was done today, patient remains on relatively high dose of norepinephrine. Remains on propofol and I cut down the dose to 15 mcg/kg/m. Blood pressure remains marginal. Urine output is also marginal. No ABG was done this morning. Objective - Vital Signs Vital signs: Vital Signs Temp 97.9 F 10/21/18 08:00 Pulse 109 H 10/21/18 11:38 Resp 24 10/21/18 11:00 BP 101/66 10/19/18 09:00 Pulse Ox 97 10/21/18 11:00 Intake & Output 10/20/18 10/21/18 10/21/18 18:59 06:59 18:59 Intake Total 1884 2191.945 740 Output Total 1150 1060 695 Balance 734 1131.945 45 Weight 77.4 kg 77.4 kg Intake: IV 1864 1780 740 Aztreonam 2 gm In Sodium 200 100 100 Chloride 0.9% 100 ml @ 100 mls/hr IVPB Q8H [facility]Y Rx#:[id number] D5w with KCl 20 Meq/l 1, 1625 1250 625 000 ml @ 125 mls/hr IV . Q8H [facility]Y Rx#:[id number] Fluconazole in NaCl,Iso- 100 Osm 400 mg In Saline 1 200ml.bag @ 100 mls/hr IVPB HS [facility]Y Rx#:[id number] Linezolid 600 mg In 300 Dextrose/Water 1 300ml. bag @ 150 mls/hr IVPB Q12H [facility]Y Rx#:[id number] pressure bag 39 30 15 Intake, IV Titration 391.945 Amount Norepinephrine 32 mg In 279.355 Sodium Chloride 0.9% 250 ml @ 0.05 MCG/KG/MIN 1. 917 mls/hr IV .Q24H [facility]Y Rx#:[id number] Propofol 1,000 mg In 112.59 Empty Bag 1 bag @ Titrate IV .Q0M MERRY Rx#: [id number] Tube Feeding 20 20 Output: Urine 1150 1060 695 Other: Voiding Method Indwelling Catheter Indwelling Catheter Indwelling Catheter # Voids 1 ABP, PAP, CO, CI - Last Documented Arterial Blood Pressure 94/52 - Exam Physical Exam: Revealed an 82-year-old white male paraplegic, on mechanical ventilation, sedated, in no distress. Head: Atraumatic, normocephalic, dry mucous membranes noted. HEENT:[Neck is supple.] [No neck masses.] [No thyromegaly.] [No JVD.] PERRLA, EOMI, no icterus, dry mucous membranes noted. Small superficial abrasion noted on the nose from his BiPAP Chest: [Crackles and rhonchi at the bases, symmetrical chest expansion, no chest wall tenderness.] Cardiac Exam: [Irregular irregular rhythm , tachycardic, Normal S1 and S2, no S3 gallop, no murmur.] Abdomen: [Soft, nontender, no megaly, no rebound, no guarding, normal bowel sounds.] Edematous abdominal wall is noted. PEG tube site is intact and clean. Extremities: [No clubbing, 2+ bipedal edema, no cyanosis. No calf tenderness. Neurological Exam: Paraplegic, Patient is nonverbal, unresponsive even to deep painful stimuli per Lymphatics: No lymphadenopathy. Skin: Small superficial abrasion on the nose - Labs CBC & Chem 7: 10/20/18 04:20 10/20/18 04:20 Labs: Abnormal Lab Results - Last 24 Hours (Table) 10/20/18 10/20/18 Range/Units 18:04 23:57 POC Glucose (mg/dL) 195 H 140 H (75-99) mg/dL Assessment and Plan Assessment: Impression: 1 acute hypoxic respiratory failure secondary to multilobar pneumonia, remains on mechanical ventilation. 2 acute urinary tract infection secondary to pseudomonas aeruginosa presently on IV Azactam. 3 hyponatremia on presentation, resolved since admission. 4 supra pubic catheter for recurrent urinary tract infection 5 quadriplegia secondary to previous cervical fracture 6 previous history of deep vein thrombosis maintained on long term acute care registered nurse anticoagul ation therapy 7 failed the swallow evaluation, patient is scheduled for PEG tube placement surgically today since previous attempts to do it under IV conscious sedation failed. 8 paroxysmal atrial fibrillation, 9 Coumadin toxicity on admission, resolved 10 history of hypertension 11 history of hypothyroidism 12 status post open gastrostomy tube placement and repair of incisional hernia 13 systemic candidemia, being addressed by infectious disease on the case. Cultures have been positive for Rosalie on multiple occasions. Remains on fluconazole. 14 metabolic acidosis, non-anion gap metabolic acidosis multifactorial, but clearly the patient is likely septic. Sources of sepsis are multiple including lungs and urine. Recommendation: Continue present treatment measures, patient will likely be terminally weaned as per his daughter's wishes sometime later today. Nurses were instructed on the terminal weaning process was finally approved by family. Time with Patient: Less than 30
[2018-10-21 12:26] VITALS: TEMP 97.3
[2018-10-21] MEDS ORDERED: MORPHINE SULFATE (100 MG/2 ML) 100 MG in SODIUM CHLORIDE 0.9% 100 ML IV SCH (13:45)
[2018-10-21 15:12] VITALS: PULSE 112; RESP 21
--- NOTE | 2018-10-21 17:20 | PN ---
PROGRESS NOTE DATE OF SERVICE: 10/21/2018 REASON FOR FOLLOWUP: 1. MRSA pneumonia. 2. Pseudomonas UTI. 3. Rosalie parapsilosis candidemia secondary to midline. INTERVAL HISTORY: The patient is currently afebrile. The patient is still requiring pressor support. He has been tolerating his feeds. No significant diarrhea. PHYSICAL EXAMINATION: Blood pressure 100/57 with a pulse of 109, temperature 97.3. He is 96% on 50% FiO2. General description is an elderly male lying in bed in no distress. RESPIRATORY SYSTEM: Unlabored breathing with decreased breath sounds at the base. HEART: S1, S2. Regular rate and rhythm. ABDOMEN: Soft. No tenderness. LABS: Hemoglobin 7.6, white count 9.3, BUN of 35, creatinine 1.18. DIAGNOSTIC IMPRESSION AND PLAN: 1. Patient with methicillin-resistant Staphylococcus aeruginosa pneumonia, currently covered with Zyvox 600 IV q.12. To continue. 2. Patient with pseudomonas urinary tract infection, currently covered with aztreonam 2 grams q.8. 3. Rosalie parapsilosis candidemia secondary to midline that has been discontinued. On Diflucan. Overall poor prognosis. Possible consideration of hospice or comfort care which may for him because of multiple comorbidities. Plan of care was discussed with the admitting physician. Continue with supportive care. MMODL / IJN: [id number] /
--- NOTE | 2018-10-22 06:30 | DS ---
DISCHARGE SUMMARY DATE OF ADMISSION: 09/18/2018 DATE THE PATIENT : 10/21/2018 CAUSE OF : Bilateral multilobar pneumonia, probably from aspiration with cultures positive for methicillin-resistant Staphylococcus aureus. OTHER MEDICAL PROBLEMS: 1. Acute hypoxic respiratory failure, mainly causing hypoxia requiring ventilator support. 2. Essential hypertension. 3. Septic shock. 4. Chronic quadriplegia with baseline some right upper extremity residual movement. 5. Chronic neurogenic bladder with chronic suprapubic catheter. 6. Acute Coumadin toxicity on presentation, required vitamin K. 7. Acute urinary tract infection with Pseudomonas and Enterococcus faecalis. 8. Acute metabolic encephalopathy. 9. Peripheral neuropathy. 10.Paroxysmal atrial fibrillation. 11.Hypernatremia from free water deficit. 12.Anemia. 13.Positive blood cultures with Rosalie parapsilosis from midline catheter. CONSULTATIONS: Dr. Starkey and colleagues from Pulmonary; Dr. Wynne from Infectious Disease. HOSPITAL COURSE: This is a patient who is chronically quadriplegic, pretty much bed bound with some minimal residual movements of the right arm, presented with multitude of symptoms and problems. Was in the ICU for quite a while, had to be intubated. The patient continued to deteriorate multiple discussions were held with the family by multiple consultants. Patient currently continued to decline. Finally, patient was terminally extubated today for comfort measures. More details in the chart. MMODL / IJN: [id number] /
== END 2018-10-21 22:30 | disposition expired | DRG 853 ==
LOC: EEVIPCON 13:15 → EC 13:15 → 3SCARD 15:13 → 2SICU 15:48 → 3NMEDONC 10-06 03:32 → 2SICU 10-16 14:05
PROVIDERS: ADMIT Hospitalist; ATTEND Hospitalist
PROC: 0WCQ8ZZ Extirpation of Matter from Respiratory Tract, Via Natural or Artificial Opening Endoscopic (ICD-10-PCS; principal; 2018-09-24 08:00)
PROC: 0DH60UZ Insertion of Feeding Device into Stomach, Open Approach (ICD-10-PCS; 2018-09-27)
PROC: 0WQF0ZZ Repair Abdominal Wall, Open Approach (ICD-10-PCS; 2018-09-27)
PROC: 3E0336Z Introduction of Nutritional Substance into Peripheral Vein, Percutaneous Approach (ICD-10-PCS; 2018-09-27)
PROC: 30240N1 Transfusion of Nonautologous Red Blood Cells into Central Vein, Open Approach (ICD-10-PCS; 2018-09-30)
PROC: 04HY32Z Insertion of Monitoring Device into Lower Artery, Percutaneous Approach (ICD-10-PCS; 2018-10-04)
PROC: 0B978ZZ Drainage of Left Main Bronchus, Via Natural or Artificial Opening Endoscopic (ICD-10-PCS; 2018-10-16)
PROC: 0B918ZZ Drainage of Trachea, Via Natural or Artificial Opening Endoscopic (ICD-10-PCS; 2018-10-16)
PROC: 0B938ZZ Drainage of Right Main Bronchus, Via Natural or Artificial Opening Endoscopic (ICD-10-PCS; 2018-10-16)
PROC: 5A09457 Assistance with Respiratory Ventilation, 24-96 Consecutive Hours, Continuous Positive Airway Pressure (ICD-10-PCS; 2018-10-16)
PROC: 06HM33Z Insertion of Infusion Device into Right Femoral Vein, Percutaneous Approach (ICD-10-PCS; 2018-10-17)
PROC: 4A133B1 Monitoring of Arterial Pressure, Peripheral, Percutaneous Approach (ICD-10-PCS; 2018-10-17)
PROC: 4A133J1 Monitoring of Arterial Pulse, Peripheral, Percutaneous Approach (ICD-10-PCS; 2018-10-17)
PROC: 0D20XUZ Change Feeding Device in Upper Intestinal Tract, External Approach (ICD-10-PCS; 2018-10-17)
PROC: 5A1945Z Respiratory Ventilation, 24-96 Consecutive Hours (ICD-10-PCS; 2018-10-18)
PROC: 0BH17EZ Insertion of Endotracheal Airway into Trachea, Via Natural or Artificial Opening (ICD-10-PCS; 2018-10-18)
DX: A41.51 Sepsis due to Escherichia coli [E. coli] (principal); J15.5 Pneumonia due to Escherichia coli; G82.50 Quadriplegia, unspecified; G93.41 Metabolic encephalopathy; R65.21 Severe sepsis with septic shock; J69.0 Pneumonitis due to inhalation of food and vomit; J10.08 Influenza due to other identified influenza virus with other specified pneumonia; J15.212 Pneumonia due to Methicillin resistant Staphylococcus aureus; J96.01 Acute respiratory failure with hypoxia; T83.510A Infection and inflammatory reaction due to cystostomy catheter, initial encounter; B37.49 Other urogenital candidiasis; D61.818 Other pancytopenia; E44.0 Moderate protein-calorie malnutrition; E87.0 Hyperosmolality and hypernatremia; E87.1 Hypo-osmolality and hyponatremia; E87.2 Acidosis; I82.629 Acute embolism and thrombosis of deep veins of unspecified upper extremity; N30.00 Acute cystitis without hematuria; Q61.3 Polycystic kidney, unspecified; R18.8 Other ascites; T82.7XXA Infection and inflammatory reaction due to other cardiac and vascular devices, implants and grafts, initial encounter; T85.598A Other mechanical complication of other gastrointestinal prosthetic devices, implants and grafts, initial encounter; Z51.5 Encounter for palliative care; Z66 Do not resuscitate; A41.52 Sepsis due to Pseudomonas; B37.7 Candidal sepsis; E86.0 Dehydration; E87.8 Other disorders of electrolyte and fluid balance, not elsewhere classified; I27.20 Pulmonary hypertension, unspecified; I48.0 Paroxysmal atrial fibrillation; D69.6 Thrombocytopenia, unspecified; G62.9 Polyneuropathy, unspecified; E83.42 Hypomagnesemia; I07.1 Rheumatic tricuspid insufficiency; J98.4 Other disorders of lung; N30.90 Cystitis, unspecified without hematuria; N31.9 Neuromuscular dysfunction of bladder, unspecified; T17.990A Other foreign object in respiratory tract, part unspecified in causing asphyxiation, initial encounter; R06.89 Other abnormalities of breathing; T45.511A Poisoning by anticoagulants, accidental (unintentional), initial encounter; E03.9 Hypothyroidism, unspecified; I10 Essential (primary) hypertension; I49.3 Ventricular premature depolarization; K43.2 Incisional hernia without obstruction or gangrene; K56.41 Fecal impaction; S30.1XXA Contusion of abdominal wall, initial encounter; S40.029A Contusion of unspecified upper arm, initial encounter; M19.90 Unspecified osteoarthritis, unspecified site; M24.50 Contracture, unspecified joint; Z16.24 Resistance to multiple antibiotics; Z74.01 Bed confinement status; Z79.01 Long term (current) use of anticoagulants; Z79.890 Hormone replacement therapy; Z79.899 Other long term (current) drug therapy; Z88.1 Allergy status to other antibiotic agents; Z88.6 Allergy status to analgesic agent; Z88.0 Allergy status to penicillin; Z88.2 Allergy status to sulfonamides; Z88.8 Allergy status to other drugs, medicaments and biological substances; Z87.440 Personal history of urinary (tract) infections; Z87.01 Personal history of pneumonia (recurrent); Z86.718 Personal history of other venous thrombosis and embolism; Z16.12 Extended spectrum beta lactamase (ESBL) resistance; Z53.9 Procedure and treatment not carried out, unspecified reason; Z68.26 Body mass index [BMI] 26.0-26.9, adult; Y84.6 Urinary catheterization as the cause of abnormal reaction of the patient, or of later complication, without mention of misadventure at the time of the procedure; Y83.3 Surgical operation with formation of external stoma as the cause of abnormal reaction of the patient, or of later complication, without mention of misadventure at the time of the procedure
CPT/HCPCS: 31624; 31645; 36410; 36415; 36600; 43246; 71045; 71046; 74018; 76937; 80048; 80053; 80202; 81001; 82040; 82330; 82607; 82747; 82805; 83605; 83690; 83735; 83880; 84100; 84132; 84443; 84478; 84484; 85025; 85027; 85379; 85610; 85730; 86850; 86900; 86901; 86920; 87040; 87070; 87077; 87086; 87102; 87103; 87116; 87186; 87205; 87206; 87252; 87324; 87496; 87498; 87502; 87529; 87634; 87798; 88108; 88305; 89050; 93005; 93306; 94002; 94003; 94640; 94660; 94760; 96361; 96365; 99291